=== PATIENT | female | born 1940 | race Caucasian/White ===

== ENCOUNTER 2016-04-05 11:04 | Outpatient (RCR) | payer MEDICARE ==
[2016-03-27 12:20] VITALS: BP 153/70
[2016-03-27] MEDS: IRON SUCROSE 200 MG/NS 100 ML (IVPB) IV SCH ×2 (12:25)
[2016-03-27 13:25] VITALS: BP 153/70
[2016-03-29] MEDS: IRON SUCROSE 200 MG/NS 100 ML (IVPB) IV SCH ×2 (13:50)
[2016-03-29 14:20] VITALS: BP 141/61
[2016-04-01] MEDS: IRON SUCROSE 200 MG/NS 100 ML (IVPB) IV SCH ×2 (12:44)
[2016-04-01 13:02] VITALS: BP 152/76
[2016-04-03] MEDS: IRON SUCROSE 200 MG/NS 100 ML (IVPB) IV SCH ×2 (13:26)
[2016-04-03 13:38] VITALS: BP 152/76
[~2016-04-05] VITALS: Ht 142.2 cm; Wt 67.1 kg
[~2016-04-05 11:04] MED LIST: ACETAMINOPHEN 500 MG TAB (TYLENOL) PO PRN; ASPI-86 PO; BACL10TA; CARV25TA PO; CEFU250T PO; CEPH-38 PO; CEPH500C PO; CITA40TA19 PO; CLPD75T PO; EZET10TA5 PO; FERR325T74 PO; FURO40TA4; HYDR1TAB PO; LEVO50TA63 PO; LISI1TAB6 PO; LORA10TA7 PO; METFOR850T PO; MGX400T PO; NF-ESOM40C; PIOG45TA PO; SIMV40TA4 PO; diphenhydrAMINE 50 MG/ML INJ (BENADRYL) IVP PRN
[2016-04-05] MEDS: IRON SUCROSE 200 MG/NS 100 ML (IVPB) IV SCH ×2 (11:31)
[2016-04-05 13:42] VITALS: BP 138/67
== END 2016-06-25 | disposition home or self-care (01) ==
LOC: SDC 11:04
PROVIDERS: ATTEND Nurse Practitioner
DX: D50.9 Iron deficiency anemia, unspecified (principal); D63.1 Anemia in chronic kidney disease; N18.3 Chronic kidney disease, stage 3 (moderate)
CPT/HCPCS: 96365

== ENCOUNTER → 2016-08-16 | Outpatient (CLI) | payer MEDICARE ==
[~2016-08-16] MED LIST changes: -ACETAMINOPHEN 500 MG TAB (TYLENOL) PO PRN; -diphenhydrAMINE 50 MG/ML INJ (BENADRYL) IVP PRN
[2016-08-16 10:18] LABS: MEAN PLATELET VOLUME 9.6 FL (7.4-10.4); RED BLOOD COUNT 4.05 10^6/uL (4.35-5.85); RED CELL DISTRIBUTION WIDTH 13.9 % (10.0-14.5); WHITE BLOOD COUNT 3.4 10^3/uL (4.3-11.0)
[2016-08-16 10:30] LABS: ALBUMIN 3.9 G/DL (3.2-4.5); CALCIUM 9.7 MG/DL (8.5-10.1); CREATININE SERUM 1.1 MG/DL (0.60-1.30); POTASSIUM 4.3 MMOL/L (3.6-5.0)
[2016-08-16 10:39] LABS: PROTEIN/CREATININE RATIO 0.55
[2016-08-16 10:48] LABS: PHOSPHORUS 3.6 MG/DL (2.3-4.7)
== END | disposition home or self-care (01) ==
LOC: LAB 09:49
PROVIDERS: ATTEND Nurse Practitioner
DX: E11.29 Type 2 diabetes mellitus with other diabetic kidney complication (principal); I13.10 Hypertensive heart and chronic kidney disease without heart failure, with stage 1 through stage 4 chronic kidney disease, or unspecified chronic kidney disease; I25.10 Atherosclerotic heart disease of native coronary artery without angina pectoris; D63.1 Anemia in chronic kidney disease; N18.4 Chronic kidney disease, stage 4 (severe); N25.81 Secondary hyperparathyroidism of renal origin; E55.9 Vitamin D deficiency, unspecified; E78.5 Hyperlipidemia, unspecified; D72.819 Decreased white blood cell count, unspecified; E87.5 Hyperkalemia; M48.02 Spinal stenosis, cervical region; E46 Unspecified protein-calorie malnutrition; R80.9 Proteinuria, unspecified; E03.9 Hypothyroidism, unspecified
CPT/HCPCS: 36415; 80061; 80069; 82306; 82570; 82728; 83540; 84156; 85027

== ENCOUNTER → 2017-03-31 | Outpatient (CLI) | payer MEDICARE ==
[2017-03-31 14:30] LABS: BILIRUBIN,URINE NEGATIVE (NEGATIVE); CLARITY,URINE CLEAR; COLOR,URINE YELLOW; GLUCOSE, URINE (UA) NEGATIVE (NEGATIVE); KETONES,URINE NEGATIVE (NEGATIVE); LEUKOCYTE ESTERASE ,URINE 3+ (NEGATIVE); NITRITE,URINE NEGATIVE (NEGATIVE); PH,URINE 5 (5-9); PROTEIN,URINE 1+ (NEGATIVE); UROBILINOGEN,URINE NORMAL (NORMAL)
[2017-03-31 14:33] LABS: HEMOGLOBIN 13.2 G/DL (11.5-16.0); MEAN PLATELET VOLUME 9.6 FL (7.4-10.4); RED BLOOD COUNT 4.31 10^6/uL (4.35-5.85); RED CELL DISTRIBUTION WIDTH 13.9 % (10.0-14.5); WHITE BLOOD COUNT 4.5 10^3/uL (4.3-11.0)
[2017-03-31 14:52] LABS: ALBUMIN 3.9 GM/DL (3.2-4.5); CALCIUM 9.6 MG/DL (8.5-10.1); CREATININE SERUM 1.18 MG/DL (0.60-1.30); PHOSPHORUS 3.2 MG/DL (2.3-4.7); POTASSIUM 4.1 MMOL/L (3.6-5.0)
[2017-03-31 15:08] LABS: BACTERIA,URINE TRACE /HPF; WBC,URINE 25-50 /HPF
== END ==
LOC: LAB 14:03
PROVIDERS: ATTEND Nurse Practitioner
DX: I13.10 Hypertensive heart and chronic kidney disease without heart failure, with stage 1 through stage 4 chronic kidney disease, or unspecified chronic kidney disease (principal); E11.22 Type 2 diabetes mellitus with diabetic chronic kidney disease; N18.4 Chronic kidney disease, stage 4 (severe); E87.5 Hyperkalemia; N25.81 Secondary hyperparathyroidism of renal origin; E55.9 Vitamin D deficiency, unspecified; E78.5 Hyperlipidemia, unspecified; D72.819 Decreased white blood cell count, unspecified; M48.02 Spinal stenosis, cervical region; E03.9 Hypothyroidism, unspecified; D63.1 Anemia in chronic kidney disease; E46 Unspecified protein-calorie malnutrition; I25.10 Atherosclerotic heart disease of native coronary artery without angina pectoris; R80.9 Proteinuria, unspecified
CPT/HCPCS: 36415; 80061; 80069; 81000; 82306; 82570; 82728; 83036; 83540; 83970; 84156; 85027; 87088

== ENCOUNTER → 2017-12-16 | Outpatient (CLI) | payer MEDICARE ==
[2017-12-16 15:05] LABS: HEMOGLOBIN 12.5 G/DL (11.5-16.0); MEAN PLATELET VOLUME 10.2 FL (7.4-10.4); RED BLOOD COUNT 4.15 10^6/uL (4.35-5.85); RED CELL DISTRIBUTION WIDTH 13.3 % (10.0-14.5)
[2017-12-16 15:15] LABS: BILIRUBIN,URINE NEGATIVE (NEGATIVE); CLARITY,URINE CLEAR; COLOR,URINE YELLOW; GLUCOSE, URINE (UA) NEGATIVE (NEGATIVE); KETONES,URINE NEGATIVE (NEGATIVE); LEUKOCYTE ESTERASE ,URINE 3+ (NEGATIVE); NITRITE,URINE NEGATIVE (NEGATIVE); PH,URINE 5 (5-9); PROTEIN,URINE 3+ (NEGATIVE); UROBILINOGEN,URINE NORMAL (NORMAL)
[2017-12-16 15:24] LABS: BACTERIA,URINE NEGATIVE /HPF; RENAL EPITHELIAL CELLS,URINE 0-2 /HPF; WBC,URINE 25-50 /HPF
[2017-12-16 15:35] LABS: ALBUMIN 4.1 GM/DL (3.2-4.5); CALCIUM 9.7 MG/DL (8.5-10.1); CREATININE SERUM 1.16 MG/DL (0.60-1.30); PHOSPHORUS 2.7 MG/DL (2.3-4.7); POTASSIUM 3.7 MMOL/L (3.6-5.0)
== END ==
LOC: LAB 14:37
PROVIDERS: ATTEND Nurse Practitioner
DX: E11.29 Type 2 diabetes mellitus with other diabetic kidney complication (principal); N18.4 Chronic kidney disease, stage 4 (severe); E87.5 Hyperkalemia; N25.81 Secondary hyperparathyroidism of renal origin; E55.9 Vitamin D deficiency, unspecified; E78.5 Hyperlipidemia, unspecified; D72.819 Decreased white blood cell count, unspecified; M48.02 Spinal stenosis, cervical region; E03.9 Hypothyroidism, unspecified; D63.1 Anemia in chronic kidney disease; E46 Unspecified protein-calorie malnutrition; I25.10 Atherosclerotic heart disease of native coronary artery without angina pectoris; I13.10 Hypertensive heart and chronic kidney disease without heart failure, with stage 1 through stage 4 chronic kidney disease, or unspecified chronic kidney disease; R80.9 Proteinuria, unspecified; R82.90 Unspecified abnormal findings in urine
CPT/HCPCS: 36415; 80069; 81000; 82306; 82570; 83036; 84156; 85027; 87088

== ENCOUNTER 2018-03-11 15:43 | Inpatient (IN) | payer MEDICARE ==
[~2018-03-11] VITALS: Ht 142.2 cm; Wt 61.0 kg
--- NOTE | 2018-03-11 17:00 | NUR ---
Pt admitted to room 231-1, with an admitting diagnosis of CVA, on 03/11/18 from [facility] via wheelchair van transportation, accompanied by limb driver. NADINE GARCIA introduced to surroundings, call light, bed controls, phone, TV, temperature control, lights, meal times, smoking policy, visitor policy, side rail policy, bathrooms and showers. Patient Rights given to patient in the handbook. NADINE GARCIA acknowledges understanding that [facility] is not responsible for the loss or damage to any personal effects or valuables that are kept in the patients posession during their hospitalization. The following Patient Care Plans were discussed with the pt: Discharge Planning, Self Care Deficit, Impaired Mobility, Potential for fall/injury, impaired memory. NADINE GARCIA acknowledges understanding of Interdisciplinary Patient Education. Patient and/or family were informed about the Rapid Response Team and its purpose. Patient received Patient Rights Booklet, which includes Privacy Act Statement and Data Collection Information Summary.
[2018-03-11 17:15] VITALS: BP 150/84
--- NOTE | 2018-03-11 18:00 | NUR ---
Upon asking pt who the President is ? Pt replies, "Camilo." Pt states her name & birthday correctly although slowly. Pt did not answer the question when asked where she lived ? 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 Have oriented pt to room, call lt button. Doesn't appear to comprehend. Speech is mostly clear, although slow to respond.
[2018-03-11] MEDS ORDERED: FAMO-144 PO (18:22)
--- OUTSIDE RECORDS SUMMARY | 2018-03-11 18:56 | XMS REPORT | Clinical Summary ---
Author Author [facility] Organization [facility] Address Unknown Phone Unavailable Care Team Providers Care Guard Lieutenant Name Role Phone No Pcp, Na PCP Unavailable Source Comments Some departments are not documenting in the electronic medical record. If you do not see the information that you expected, contact Release of Information in the Health Information Management department at [phone] for further assistance in locating additional records.[facility] Allergies No Known Allergies Medications End Date Status Medication Sig Dispensed Refills Start Date Active ezetimibe (ZETIA) 10 mg Take 10 mg by 0 tablet mouth every morning. Active atorvastatin (LIPITOR) 40 Take 1 tablet 0 mg tablet by mouth at bedtime daily. Active famotidine (PEPCID) 20 mg Take 20 mg by 0 tablet mouth twice daily. Active carvedilol (COREG) 25 mg Take 25 mg by 0 tablet mouth twice daily with meals. Take with food. Active lisinopril (PRINIVIL; Take 1 tablet 0 ZESTRIL) 5 mg tablet by mouth every morning. Active clopiDOGrel (PLAVIX) 75 Take 75 mg by 0 mg tablet mouth every morning. Active citalopram (CELEXA) 20 mg Take 20 mg by 0 tablet mouth every morning. 06/10/2018 Active aspirin 81 mg chewable Chew one 90 tablet 0 tablet tablet by 9 mouth daily for 90 days. Take with food. 03/10/2018 Discontinued aspirin EC 81 mg tablet Take 81 mg by 0 mouth daily. Take with food. 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 Hyperglycemia 03/09/2018 Renovascular hypertension 03/09/2018 Expressive aphasia 03/09/2018 Heart disease Encounters Care Team Description Date Type Specialty Moon Kuhn MD Arrived 03/09/2018 Hospital Cardiology Encounter John Carpio MD Husmann, Kathrin, MD Slavin, Sabreena J, MD Lechtenberg, Colleen G, MD Stroke (cerebrum) (HCC) 03/09/2018 Hospital - Encounter 03/11/2018 from Last 3 Months Social History Date Tobacco Use Types Packs/Day Years Used Never Assessed Sex Assigned at Date Recorded Not on file Industry Job Start Date Occupation Not on file Not on file Not on file Travel End Travel History Travel Start No recent travel history available. Last Filed Vital Signs Time Taken Vital Sign Reading 03/11/2018 2:00 PM [facility] Blood Pressure 127/80 03/11/2018 2:00 PM [facility] Pulse 70 03/11/2018 2:00 PM [facility] Temperature 36.9 C (98.4 F) - Respiratory Rate - 03/11/2018 2:00 PM [facility] Oxygen Saturation 97% - Inhaled Oxygen - Concentration 03/10/2018 4:00 AM [facility] Weight 58.7 kg (129 lb 6.6 oz) 03/09/2018 11:31 AM [facility] Height 147.3 cm (4' 10") 03/10/2018 4:00 AM [facility] Body Mass Index 27.05 Plan of Treatment Health Maintenance Due Date Last Done Comments PHYSICAL (COMPREHENSIVE) 01/17/1947 EXAM DTAP/TDAP VACCINES (1 - 1959 Tdap) SHINGLES RECOMBINANT 1991 VACCINE (1 of 2) OSTEOPOROSIS 2006 SCREENING/MONITORING PNEUMONIA (PCV13/PPSV23) 2006 VACCINES (1 of 2 - PCV13) INFLUENZA VACCINE 10/08/2017 Procedures Comments Procedure Name Priority Date/Time Associated Diagnosis MAGNESIUM Routine 03/11/2018 5:10 AM [facility] BASIC METABOLIC PANEL Routine 03/11/2018 5:10 AM [facility] CBC Routine 03/11/2018 5:10 AM [facility] PHOSPHORUS Routine 03/10/2018 4:10 AM [facility] MAGNESIUM Routine 03/10/2018 4:10 AM [facility] BASIC METABOLIC PANEL Routine 03/10/2018 4:10 AM [facility] CBC Routine 03/10/2018 4:[address] [facility] [address] HEAD WO CONTRAST Routine 03/10/2018 3:53 AM [facility] DEVICE EVALUATION - PPM STAT 03/09/2018 2:50 PM [facility] ABDOMEN AP ONLY Routine 03/09/2018 1:21 PM [facility] URINALYSIS MICROSCOPIC Routine 03/09/2018 REFLEX TO CULTURE 11:51 AM [facility] URINALYSIS DIPSTICK Routine 03/09/2018 REFLEX TO CULTURE 11:51 AM [facility] 2-D + DOPPLER Routine 03/09/2018 ECHOCARDIOGRAM 11:31 AM [facility] TROPONIN-I STAT 03/09/2018 10:40 AM [facility] CHEST SINGLE VIEW STAT 03/09/2018 8:29 AM [facility] BNP (B-TYPE NATRIURETIC Routine 03/09/2018 PEPTI) 8:06 AM [facility] TROPONIN-I STAT 03/09/2018 8:06 AM [facility] CONSULT IV THERAPY TEAM STAT 03/09/2018 7:38 AM [facility] PHOSPHORUS Routine 03/09/2018 7:00 AM [facility] MAGNESIUM Routine 03/09/2018 7:00 AM [facility] TROPONIN-I STAT 03/09/2018 7:00 AM [facility] BASIC METABOLIC PANEL Routine 03/09/2018 7:00 AM [facility] PTT (APTT) Routine 03/09/2018 7:00 AM [facility] PROTIME INR (PT) Routine 03/09/2018 7:00 AM [facility] CBC AND DIFF Routine 03/09/2018 7:00 AM [facility] HEMOGLOBIN A1C Routine 03/09/2018 7:00 AM [facility] LIPID PROFILE Routine 03/09/2018 7:00 AM [facility] CTA NECK WO/W STAT 03/09/2018 CONTRAST+POST P 6:50 AM [facility] CTA HEAD WO/W CONTR+POST STAT 03/09/2018 PRO 6:[address] [facility] [address] BRAIN PERF STAT 03/09/2018 6:50 AM [facility] ECG 12-LEAD STAT 03/09/2018 6:26 AM [facility] from Last 3 Months Results * CBC (03/11/2018 5:10 AM [facility]) Only the most recent of 2 results within the time period is included. White Blood Cells 6.5 4.5 - 11.0 K/UL [facility] RBC 4.72 4.0 - 5.0 M/UL [facility] Hemoglobin 14.0 12.0 - 15.0 GM/DL [facility] Hematocrit 42.1 36 - 45 % [facility] MCV 89.3 80 - 100 FL [facility] MCH 29.6 26 - 34 PG [facility] MCHC 33.2 32.0 - 36.0 G/DL [facility] RDW 14.5 11 - 15 % [facility] Platelet Count 146 (L) 150 - 400 K/UL [facility] MPV 9.3 7 - 11 FL [facility] Specimen Blood Performing Organization Address City/[facility] Phone Number [facility] [address] [phone] * MAGNESIUM (03/11/2018 5:10 AM [facility]) Only the most recent of 3 results within the time period is included. Magnesium 1.7 1.6 - 2.6 mg/dL [facility] Specimen Blood Performing Organization Address City/[facility] Phone Number [facility] [address] [place] [address] * BASIC METABOLIC PANEL (03/11/2018 5:10 AM [facility]) Only the most recent of 3 results within the time period is included. Sodium 135 (L) 137 - 147 MMOL/L [facility] Potassium 4.3 3.5 - 5.1 MMOL/L [facility] Chloride 102 98 - 110 MMOL/L [facility] CO2 25 21 - 30 MMOL/L [facility] Anion Gap 8 3 - 12 [facility] Glucose 133 (H) 70 - 100 MG/DL [facility] Blood Urea Nitrogen 18 7 - 25 MG/DL [facility] Creatinine 0.93 0.4 - 1.00 MG/DL [facility] Calcium 9.6 8.5 - 10.6 MG/DL [facility] eGFR Non 58 (L) >60 mL/min [facility] Comment: The eGFR is not validated for use in drug dosing adjustments.Continue to use estimated creatinine clearance per dosing reference text.Please contact the Clinical Pharmacist for questions. eGFR >60 >60 mL/min [facility] Comment: The eGFR is not validated for use in drug dosing adjustments.Continue to use estimated creatinine clearance per dosing reference text.Please contact the Clinical Pharmacist for questions. Specimen Blood Performing Organization Address City/[facility]/Zipcode Phone Number [facility] [address] [place] [address] * PHOSPHORUS (03/10/2018 4:10 AM [facility]) Only the most recent of 2 results within the time period is included. Phosphorus 4.0Comment: NOTE NEW REFERENCE 2.0 - 4.5 MG/DL [facility] RANGES Specimen Blood Performing Organization Address City/[facility]/Zipcode Phone Number [facility] [address] [place] [address] * CT HEAD WO CONTRAST (03/10/2018 3:53 AM [facility]) Impressions Performed At 1.Development of subtle vague intraparenchymal hemorrhage in the high [facility] RAD RESULTS posterior left frontal lobe in the region of previously demonstrated infarct compatible with hemorrhagic transformation. 2.Mildly increased localized mass effect from the above process without midline shift or herniation. 3.No new area of loss of pierson-white matter differentiation. By my electronic signature, I attest that I have personally reviewed the images for this examination and formulated the interpretations and opinions expressed in this report Finalized by Felix Frankel M.D. on 03/10/2018 4:20 AM. Dictated by Kaleb Osman D.O. on 03/10/2018 3:57 AM. Narrative Performed At EXAM: CT HEAD [facility] RESULTS CLINICAL INDICATION: Female, 78 years. stroke. TECHNIQUE: Multiple contiguous axial images were obtained of the brain without intravenous contrast. COMPARISON: CT examinations of the day prior FINDINGS: Development of subtle vague intraparenchymal hemorrhage in the high posterior left frontal lobe in the region of previously demonstrated infarct. There is mildly increased localized mass effect. No midline shift or herniation is demonstrated. The ventricles are stable in size and configuration. Basal cisterns remain patent. No new area of loss of pierson-white matter differentiation. Procedure Note Interface, Radiant Results - 03/10/2018 4:23 AM [facility] EXAM: CT HEAD CLINICAL INDICATION: Female, 78 years. stroke. TECHNIQUE: Multiple contiguous axial images were obtained of the brain without intravenous contrast. COMPARISON: CT examinations of the day prior FINDINGS: Development of subtle vague intraparenchymal hemorrhage in the high posterior left frontal lobe in the region of previously demonstrated infarct. There is mildly increased localized mass effect. No midline shift or herniation is demonstrated. The ventricles are stable in size and configuration. Basal cisterns remain patent. No new area of loss of pierson-white matter differentiation. IMPRESSION 1. Development of subtle vague intraparenchymal hemorrhage in the high posterior left frontal lobe in the region of previously demonstrated infarct compatible with hemorrhagic transformation. 2. Mildly increased localized mass effect from the above process without midline shift or herniation. 3. No new area of loss of pierson-white matter differentiation. By my electronic signature, I attest that I have personally reviewed the images for this examination and formulated the interpretations and opinions expressed in this report Finalized by Felix Frankel M.D. on 03/10/2018 4:20 AM. Dictated by Kaleb Osman D.O. on 03/10/2018 3:57 AM. Performing Organization Address City/State/Zipcode Phone Number [facility] RESULTS * DEVICE EVALUATION - PPM (03/09/2018 2:50 PM [facility]) Generator [employer] OTHER OUTSIDE LAB Generator Model # Accent DR RF 2210 OTHER OUTSIDE LAB Generator Serial # [id number] OTHER OUTSIDE LAB Generator Implnat Date 03/01/13 OTHER OUTSIDE LAB Device Mode DDDR OTHER OUTSIDE LAB Lower Rate Limit 65 OTHER OUTSIDE LAB Atrial Lead [employer] [facility] OTHER OUTSIDE LAB Atrial Lead Model # Tendril STS 2088TC - 46cm OTHER OUTSIDE LAB Atrial Lead Serial # [id number] OTHER OUTSIDE LAB Atrial Lead Implant Date 03/01/13 OTHER OUTSIDE LAB RV Lead [employer] [facility] OTHER OUTSIDE LAB RV Lead Model # Tendril STS 2088TC - 52cm OTHER OUTSIDE LAB RV Lead Serial # [id number] OTHER OUTSIDE LAB RV Lead Implant Date 03/01/13 OTHER OUTSIDE LAB Initial Rhythm -VS OTHER OUTSIDE LAB Underlying Rhythm SR 80's OTHER OUTSIDE LAB Upper Rate Limit 125 OTHER OUTSIDE LAB Pace AV Delay 250 OTHER OUTSIDE LAB Sense AV Delay 225 OTHER OUTSIDE LAB -VS% 34 OTHER OUTSIDE LAB -ROAD GRADER% <1 OTHER OUTSIDE LAB -VS% 65 OTHER OUTSIDE LAB AP-ROAD GRADER% <1 OTHER OUTSIDE LAB # Mode S. Events 0 OTHER OUTSIDE LAB # High AT/AF Evts 14 OTHER OUTSIDE LAB Time in AT/AF - OTHER OUTSIDE LAB V Rate in AT/AF - OTHER OUTSIDE LAB Single PVSc 1.5% OTHER OUTSIDE LAB PVC runs - OTHER OUTSIDE LAB Battery Voltage 2.92V OTHER OUTSIDE LAB A Sense mv 4.1 OTHER OUTSIDE LAB A Capture V 0.5 OTHER OUTSIDE LAB A Capture ms 0.6 OTHER OUTSIDE LAB A Lead ohms 410 OTHER OUTSIDE LAB RV Sense mv >12.0 OTHER OUTSIDE LAB RV Capture V 1.0 OTHER OUTSIDE LAB RV Capture ms 0.4 OTHER OUTSIDE LAB RV Lead ohms 400 OTHER OUTSIDE LAB LV Sense mv - OTHER OUTSIDE LAB EP LV Capture V - OTHER OUTSIDE LAB LV Capture ms - OTHER OUTSIDE LAB LV Lead ohms - OTHER OUTSIDE LAB Counters Clrd Yes OTHER OUTSIDE LAB Saved to Disc No OTHER OUTSIDE LAB Device Function WNL Yes OTHER OUTSIDE LAB Device Reprogram No OTHER OUTSIDE LAB V-V Timing - OTHER OUTSIDE LAB Ao Voltage 1.375A OTHER OUTSIDE LAB AO Pulse Width 0.6 OTHER OUTSIDE LAB RV Voltage 1.25A OTHER OUTSIDE LAB RV Pulse Width 0.4 OTHER OUTSIDE LAB LV Voltage - OTHER OUTSIDE LAB LV Pulse Width - OTHER OUTSIDE LAB # High V Events 85 OTHER OUTSIDE LAB Magent Rate 98.7 OTHER OUTSIDE LAB Estimated Longevity 7-7.8 years OTHER OUTSIDE LAB Initial Rhythm 80's OTHER OUTSIDE LAB Device Implanted By Dr. Constantino OTHER OUTSIDE LAB Pacemaker Dependant No OTHER OUTSIDE LAB Programming? Yes OTHER OUTSIDE LAB Date of Last Programming 03/09/18 OTHER OUTSIDE LAB Interrogation? No OTHER OUTSIDE LAB EP Device Followed By Other OTHER OUTSIDE LAB Narrative Performed At OTHER OUTSIDE LAB [facility] Inpatient Check [03/09/2018 2:51:08 PM - MAGALI MOSCOSO] Inpatient programming for dual chamber [facility] PPM. Device function: Appropriate. Presenting EGM shows ASVS 85 bpm. Events noted since 03/14/16: Atrial:85 AMS event, events showed falling in refractory, no EGM's showed start of event, MS put pt back into NR, longest duration 12 seconds. Ventricular:14 VHR events, all EGM's show VS 150-180 bpm, all rates very regular, EGM's almost look like FFRWOS in the A lead, no onset/term seen. RV Pacing%: <1 Programming changes: None Pt is followed by outside provider Routed to Dr. Lew for review/cosign. Device is NOT MRI compatible. Ordering team notified. Performing Organization Address City/State/Zipcode Phone Number OTHER OUTSIDE LAB * ABDOMEN AP ONLY (03/09/2018 1:21 PM [facility]) Impressions Performed At No indwelling metal objects identified. [facility] RESULTS Approved by Silver Lafleur M.D. on 03/09/2018 2:50 PM By my electronic signature, I attest that I have personally reviewed the images for this examination and formulated the interpretations and opinions expressed in this report Finalized by Sagar Manuel D.O. on 03/09/2018 4:31 PM. Dictated by Silver Lafleur M.D. on 03/09/2018 1:29 PM. Narrative Performed At ABDOMEN AP ONLY [facility] RAD RESULTS Clinical Indication: Female, 78 years old. MRI screening, right sided weakness , aphasia Comparison: None Findings: The bowel gas pattern is nonobstructive. Mild thoracolumbar spondylosis. Partial visualization of prior median sternotomy and CABG. The visualized lung bases are clear aside from a small right calcified granuloma. Mild to moderate bilateral hip arthrosis. No indwelling metal objects are identified. Procedure Note Interface, Radiant Results - 03/09/2018 4:34 PM [facility] ABDOMEN AP ONLY Clinical Indication: Female, 78 years old. MRI screening, right sided weakness, aphasia Comparison: None Findings: The bowel gas pattern is nonobstructive. Mild thoracolumbar spondylosis. Partial visualization of prior median sternotomy and CABG. The visualized lung bases are clear aside from a small right calcified granuloma. Mild to moderate bilateral hip arthrosis. No indwelling metal objects are identified. IMPRESSION No indwelling metal objects identified. Approved by Silver Lafleur M.D. on 03/09/2018 2:50 PM By my electronic signature, I attest that I have personally reviewed the images for this examination and formulated the interpretations and opinions expressed in this report Finalized by Sagar Manuel D.O. on 03/09/2018 4:31 PM. Dictated by Silver Lafleur M.D. on 03/09/2018 1:29 PM. Performing Organization Address [facility]/[facility] Phone Number RAD RESULTS * URINALYSIS MICROSCOPIC REFLEX TO CULTURE (03/09/2018 11:51 AM [facility]) WBCs,UA 0-2 0 - 2 /HPF [facility] RBCs,UA 0-2 0 - 3 /HPF [facility] Comment,UA Urine submitted for reflex [facility] culture if criteria are met:WBC>10, positive nitrite and/or >=1+ leukocyte esterase. If quantity is not sufficient, an addendum will follow. Squamous Epithelial Cells 0-2 0 - 5 [facility] Specimen Urine Performing Organization Address [facility] Phone Number MAIN LAB [address] [place] [address] * URINALYSIS DIPSTICK REFLEX TO CULTURE (03/09/2018 11:51 AM [facility]) Color,UA STRAW [facility] Turbidity,UA CLEAR CLEAR-CLEAR [facility] Specific [place]-Urine 1.020 1.003 - 1.035 [facility] pH,UA 5.0 5.0 - 8.0 [facility] Protein,UA NEG NEG-NEG [facility] Glucose,UA NEG NEG-NEG [facility] Ketones,UA NEG NEG-NEG [facility] Bilirubin,UA NEG NEG-NEG [facility] Blood,UA NEG NEG-NEG [facility] Urobilinogen,UA NORMAL NORM-NORMAL [facility] Nitrite,UA NEG NEG-NEG [facility] Leukocytes,UA NEG NEG-NEG [facility] Urine Ascorbic Acid, UA NEG NEG-NEG [facility] Specimen Urine Performing Organization Address [facility] Phone Number MAIN LAB [address] [place] [address] * 2-D + DOPPLER ECHOCARDIOGRAM (03/09/2018 11:31 AM [facility]) IVS 0.96 0.6 - 0.9 cm OTHER OUTSIDE LAB LVIDD 5.60 3.8 - 5.2 cm OTHER OUTSIDE LAB LVIDS 4.68 2.2 - 3.5 cm OTHER OUTSIDE LAB PW 0.86 0.6 - 0.9 cm OTHER OUTSIDE LAB TDI e' 0.06 m/s OTHER OUTSIDE LAB Right Ventricular Mid 2.31 1.9 - 3.5 cm OTHER OUTSIDE LAB Diameter LA size 4.21 2.7 - 3.8 cm OTHER OUTSIDE LAB LA volume 76.90 22 - 52 mL OTHER OUTSIDE LAB Right Atrial Area 13.33 <18 cm2 OTHER OUTSIDE LAB Right Atrial Major 4.80 2.2 - 2.8 cm OTHER OUTSIDE LAB Dimension AV peak velocity 0.96 m/s OTHER OUTSIDE LAB Mr max kemal 5.58 m/s OTHER OUTSIDE LAB MV Peak A Kemal 1.15 m/s OTHER OUTSIDE LAB MV Peak E Kemal PW 0.87 m/s OTHER OUTSIDE LAB Right Ventricular Basal 3.37 2.5 - 4.1 cm OTHER OUTSIDE LAB Diameter Right Heart Systolic 1.36 >1.7 cm OTHER OUTSIDE LAB Mmode TAPSE Sinus 3.04 2.7 - 3.3 cm OTHER OUTSIDE LAB BSA 1.51 m2 OTHER OUTSIDE LAB CV ECHO PV MOLYBDENUM STEAMER OPERATOR ANGEL Callahan OTHER OUTSIDE LAB FS 16.43 28 - 44 % OTHER OUTSIDE LAB EF 27.93 % OTHER OUTSIDE LAB LV mass 194.37 66 - 150 g OTHER OUTSIDE LAB RWT 0.31 <=0.42 OTHER OUTSIDE LAB E/A ratio 0.76 OTHER OUTSIDE LAB E/E' ratio 14.50 OTHER OUTSIDE LAB Left Atrium Index 50.93 16 - 34 OTHER OUTSIDE LAB Cardiology Ultrasound Siemens [id number] OTHER OUTSIDE LAB Machine Left Ventricle Mass Index 128.73 44 - 88 g/m2 OTHER OUTSIDE LAB MV vena contracta 0.26 cm OTHER OUTSIDE LAB Vn Nyquist 0.34 m/s OTHER OUTSIDE LAB Radius 0.4 cm OTHER OUTSIDE LAB MR EMMY CARLOS 0.06 cm2 OTHER OUTSIDE LAB TV rest pulmonary artery 47 mmHg OTHER OUTSIDE LAB pressure Right Heart Systolic TDI 0.097 m/s OTHER OUTSIDE LAB S' ECHO EF 35 % OTHER OUTSIDE LAB Narrative Performed At OTHER OUTSIDE LAB The LV is mildly dilated.The estimated LV ejection fraction is 35%.No LV mural thrombus appears to be present. Left atrium is moderately enlarged. Mild mitral regurgitation is present. Mild tricuspid regurgitation is noted.The estimated PA systolic pressures 45-50 mmHg. There was no evidence of intracardiac right to left shunting on the bubble study. There are no old studies available for comparison. Performing Organization Address City/State/Zipcode Phone Number OTHER OUTSIDE LAB * TROPONIN-I (03/09/2018 10:40 AM [facility]) Only the most recent of 3 results within the time period is included. Troponin-I 0.78 (H) 0.0 - 0.05 NG/ML [facility] Specimen Blood Performing Organization Address City/State/Zipcode Phone Number [facility] [address] [place] [address] * CHEST SINGLE VIEW (03/09/2018 8:29 AM [facility]) Impressions Performed At Mild cardiomegaly with no other acute cardiopulmonary abnormality. [facility] RESULTS Approved by Elian Mendoza M.D. on 03/09/2018 9:55 AM By my electronic signature, I attest that I have personally reviewed the images for this examination and formulated the interpretations and opinions expressed in this report Finalized by Devyn Salguero M.D. on 03/09/2018 11:18 AM. Dictated by Elian Mendoza M.D. on 03/09/2018 8:56 AM. Narrative Performed At CHEST SINGLE VIEW [facility] RAD RESULTS Clinical history: Post TPA Comparison: None available. Findings: Prior median sternotomy and coronary bypass stent placement. A left subclavian cardiac conduction device is in place with a lead overlying the right atrium and another overlying the right ventricle. The heart is mildly enlarged. Pulmonary vasculature is within normal limits. No pleural effusion, focal consolidation , or pneumothorax is identified. Calcified right lower lung granuloma. Mild atelectasis or scarring right lung. Procedure Note Interface, Radiant Results - 03/09/2018 11:21 AM [facility] CHEST SINGLE VIEW Clinical history: Post TPA Comparison: None available. Findings: Prior median sternotomy and coronary bypass stent placement. A left subclavian cardiac conduction device is in place with a lead overlying the right atrium and another overlying the right ventricle. The heart is mildly enlarged. Pulmonary vasculature is within normal limits. No pleural effusion, focal consolidation, or pneumothorax is identified. Calcified right lower lung granuloma. Mild atelectasis or scarring right lung. IMPRESSION Mild cardiomegaly with no other acute cardiopulmonary abnormality. Approved by Elian Mendoza M.D. on 03/09/2018 9:55 AM By my electronic signature, I attest that I have personally reviewed the images for this examination and formulated the interpretations and opinions expressed in this report Finalized by Devyn Salguero M.D. on 03/09/2018 11:18 AM. Dictated by Elian Mendoza M.D. on 03/09/2018 8:56 AM. Performing Organization Address [facility] Phone Number RAD RESULTS * BNP (B-TYPE NATRIURETIC PEPTI) (03/09/2018 8:06 AM [facility]) B Type Natriuretic 334.0 (H) 0 - 100 PG/ML [facility] Peptide Specimen Blood Performing Organization Address [facility] Phone Number MAIN LAB [address] [place] [address] * PTT (APTT) (03/09/2018 7:00 AM [facility]) APTT 25.0Comment: NOTE NEW 24.0 - 36.5 SEC [facility] REFERENCE RANGES Specimen Blood Performing Organization Address [facility] Phone Number MAIN LAB [address] [place] [address] * PROTIME INR (PT) (03/09/2018 7:00 AM [facility]) INR 1.0 0.8 - 1.2 MAIN LAB Specimen Blood Performing Organization Address [facility] Phone Number MAIN LAB [address] [place] [address] * CBC AND DIFF (03/09/2018 7:00 AM [facility]) White Blood Cells 6.6 4.5 - 11.0 K/UL [facility] RBC 4.46 4.0 - 5.0 M/UL [facility] Hemoglobin 13.2 12.0 - 15.0 GM/DL [facility] Hematocrit 39.7 36 - 45 % [facility] MCV 88.9 80 - 100 FL [facility] MCH 29.5 26 - 34 PG [facility] MCHC 33.2 32.0 - 36.0 G/DL [facility] RDW 13.8 11 - 15 % [facility] Platelet Count 157 150 - 400 K/UL [facility] MPV 9.3 7 - 11 FL [facility] Neutrophils 76 41 - 77 % [facility] Lymphocytes 17 (L) 24 - 44 % [facility] Monocytes 7 4 - 12 % [facility] Eosinophils 0 0 - 5 % [facility] Basophils 0 0 - 2 % [facility] Absolute Neutrophil Count 5.00 1.8 - 7.0 K/UL [facility] Absolute Lymph Count 1.10 1.0 - 4.8 K/UL [facility] Absolute Monocyte Count 0.40 0 - 0.80 K/UL [facility] Absolute Eosinophil Count 0.00 0 - 0.45 K/UL [facility] Absolute Basophil Count 0.00 0 - 0.20 K/UL [facility] Specimen Blood Performing Organization Address [facility] Phone Number MAIN LAB [address] [place] [address] * HEMOGLOBIN A1C (03/09/2018 7:00 AM [facility]) Hemoglobin A1C 6.4 (H) 4.0 - 6.0 % [facility] Comment: The ADA recommends that most patients with type 1 and type 2 diabetes maintain an A1c level <7%. Specimen Blood Performing Organization Address [facility] [place] Phone Number MA[facility] LAB [address] [place] [address] * LIPID PROFILE (03/09/2018 7:00 AM [facility]) Cholesterol 217 (H) <200 MG/DL [facility] Triglycerides 138 <150 MG/DL [facility] HDL 37 (L) >40 MG/DL [facility] LDL 165 (H) <100 MG/DL [facility] VLDL 28 MG/DL [facility] Non HDL Cholesterol 180 MG/DL [facility] Comment: Calculated non-HDL Cholesterol (non-HDL-C) indirectly measures LDL-C, Lp(a), IDL-C, and VLDL-C.It is a surrogate marker for Apoprotein B.Goal should be less than 130 mg/dL. Specimen Blood Performing Organization Address [facility] Phone Number MAIN LAB [address] [place] [address] * CT BRAIN PERF (03/09/2018 6:50 AM [facility]) Impressions Performed At CTA head: [facility] RESULTS 1.Acute left MCA distribution infarct in the high posterior left frontal lobe with occlusion of a distal posterior left M4 branch leading to the area of infarct. 2.Mild bilateral distal internal carotid artery atherosclerotic plaque resulting in only mild luminal stenosis. 3.Mild atrophy and white matter disease, most consistent with chronic small vessel ischemic change in a patient this age. CTA neck: 1.Moderate right proximal internal carotid atherosclerotic plaque with approximately 40-50% luminal narrowing. 2.Mild left proximal internal carotid and left common carotid artery atherosclerotic plaque without significant luminal narrowing. 3.Significant tortuosity of the nondominant proximal left vertebral artery with at least mild luminal narrowing at its origin due to atherosclerotic plaque. CT perfusion: Findings consistent with completed left MCA distribution infarct. No mismatch perfusion defect. Case discussed with Dr. Whiteside by Dr. Jack (after consultation with Dr. Lyons) at 7:17 AM on 03/09/2018. By my electronic signature, I attest that I have personally reviewed the images for this examination and formulated the interpretations and opinions expressed in this report Finalized by Surinder Lyons M.D. on 03/09/2018 7:25 AM. Dictated by Jojo Jack D.O. on 03/09/2018 6:32 AM. Narrative Performed At EXAM: CTA HEAD AND NECK, CTA BRAIN PERFUSION [facility] RESULTS HISTORY: 78-year-old female. Right upper extremity weakness. Right-sided neglect. TECHNIQUE: Multiple contiguous axial images were obtained of the brain and neck following the administration of Omnipaque 350IV contrast. CTA maximum density projection images were obtained of the brain and neck with image post processing.Perfusion imaging was also obtained with CBV, MTT, TTD, and CBF mapping. COMPARISON: No prior studies are available for comparison. FINDINGS: CTA head: There is mild generalized cerebral volume loss with concordant prominence of the ventricles and subarachnoid spaces. There is low-attenuation and loss of pierson-white matter differentiation along the high posterior left frontal lobe along the primary motor and premotor cortices consistent with MCA territory infarct. This area measures approximately 2.6 cm AP x 2 cm transverse and is most consistent with an acute infarct. No additional pierson-white matter loss is identified. There is no midline shift or herniation. There is no evidence of acute intracranial hemorrhage. The basal cisterns are patent. The calvarium is intact. There is occlusion of a distal posterior left M4 branch leading to the area of infarct. There is mild calcific atherosclerotic plaque involving the bilateral distal internal carotid arteries resulting in areas of mild narrowing. There is dominance of the right vertebral artery. The left vertebral artery is smaller in caliber diffusely above the left PICA origin, most consistent with normal variant. The anterior, middle, and posterior cerebral arteries are otherwise patent without focal narrowing. No aneurysm or arteriovenous malformation is identified. CTA neck: The aortic arch vessel origins are widely patent. There is focal calcific plaque at the origin of the right vertebral artery without significant luminal narrowing. There is tortuosity of the nondominant proximal left vertebral artery with focal plaque and at least mild luminal narrowing of its origin. The left vertebral artery arises from the aortic arch. There is calcific atherosclerotic plaque within the proximal right internal carotid artery with approximately 40-50% luminal narrowing according to NASCET criteria. There is mild atherosclerotic plaque within the proximal left internal carotid artery and left common carotid artery without significant luminal narrowing. No aneurysm, AVM , or dissection is identified. There is multilevel cervical spondylosis with posterior disc osteophyte complexes and uncovertebral hypertrophy resulting in levels of marked neural foraminal narrowing and at least moderate spinal canal narrowing. The paranasal sinus and mastoid air cells are clear. The lung apices are clear other than some probable areas of mild atelectasis or small airways disease accounting for mild mosaic attenuation appearance. CT Perfusion: There is increased time to drain and mean transit time in the area of left MCA infarct at the posterior left frontal lobe, with associated decrease blood flow and volume loss, consistent with a completed infarct. No mismatch perfusion defect is identified. Procedure Note Interface, Radiant Results - 03/09/2018 7:28 AM [facility] EXAM: CTA HEAD AND NECK, CTA BRAIN PERFUSION HISTORY: 78-year-old female. Right upper extremity weakness. Right-sided neglect. TECHNIQUE: Multiple contiguous axial images were obtained of the brain and neck following the administration of Omnipaque 350 IV contrast. CTA maximum density projection images were obtained of the brain and neck with image post processing. Perfusion imaging was also obtained with CBV, MTT, TTD, and CBF mapping. COMPARISON: No prior studies are available for comparison. FINDINGS: CTA head: There is mild generalized cerebral volume loss with concordant prominence of the ventricles and subarachnoid spaces. There is low-attenuation and loss of pierson-white matter differentiation along the high posterior left frontal lobe along the primary motor and premotor cortices consistent with MCA territory infarct. This area measures approximately 2.6 cm AP x 2 cm transverse and is most consistent with an acute infarct. No additional pierson-white matter loss is identified. There is no midline shift or herniation. There is no evidence of acute intracranial hemorrhage. The basal cisterns are patent. The calvarium is intact. There is occlusion of a distal posterior left M4 branch leading to the area of infarct. There is mild calcific atherosclerotic plaque involving the bilateral distal internal carotid arteries resulting in areas of mild narrowing. There is dominance of the right vertebral artery. The left vertebral artery is smaller in caliber diffusely above the left PICA origin, most consistent with normal variant. The anterior, middle, and posterior cerebral arteries are otherwise patent without focal narrowing. No aneurysm or arteriovenous malformation is identified. CTA neck: The aortic arch vessel origins are widely patent. There is focal calcific plaque at the origin of the right vertebral artery without significant luminal narrowing. There is tortuosity of the nondominant proximal left vertebral artery with focal plaque and at least mild luminal narrowing of its origin. The left vertebral artery arises from the aortic arch. There is calcific atherosclerotic plaque within the proximal right internal carotid artery with approximately 40-50% luminal narrowing according to NASCET criteria. There is mild atherosclerotic plaque within the proximal left internal carotid artery and left common carotid artery without significant luminal narrowing. No aneurysm, AVM, or dissection is identified. There is multilevel cervical spondylosis with posterior disc osteophyte complexes and uncovertebral hypertrophy resulting in levels of marked neural foraminal narrowing and at least moderate spinal canal narrowing. The paranasal sinus and mastoid air cells are clear. The lung apices are clear other than some probable areas of mild atelectasis or small airways disease accounting for mild mosaic attenuation appearance. CT Perfusion: There is increased time to drain and mean transit time in the area of left MCA infarct at the posterior left frontal lobe, with associated decrease blood flow and volume loss, consistent with a completed infarct. No mismatch perfusion defect is identified. IMPRESSION CTA head: 1. Acute left MCA distribution infarct in the high posterior left frontal lobe with occlusion of a distal posterior left M4 branch leading to the area of infarct. 2. Mild bilateral distal internal carotid artery atherosclerotic plaque resulting in only mild luminal stenosis. 3. Mild atrophy and white matter disease, most consistent with chronic small vessel ischemic change in a patient this age. CTA neck: 1. Moderate right proximal internal carotid atherosclerotic plaque with approximately 40-50% luminal narrowing. 2. Mild left proximal internal carotid and left common carotid artery atherosclerotic plaque without significant luminal narrowing. 3. Significant tortuosity of the nondominant proximal left vertebral artery with at least mild luminal narrowing at its origin due to atherosclerotic plaque. CT perfusion: Findings consistent with completed left MCA distribution infarct. No mismatch perfusion defect. Case discussed with Dr. Whiteside by Dr. Jack (after consultation with Dr. Lyons) at 7:17 AM on 03/09/2018. By my electronic signature, I attest that I have personally reviewed the images for this examination and formulated the interpretations and opinions expressed in this report Finalized by Surinder Lyons M.D. on 03/09/2018 7:25 AM. Dictated by Jojo Jack D.O. on 03/09/2018 6:32 AM. Performing Organization Address City/State/Zipcode Phone Number [facility] RESULTS * CTA NECK WO/W CONTRAST+POST P (03/09/2018 6:50 AM [facility]) Impressions Performed At CTA head: [facility] RESULTS 1.Acute left MCA distribution infarct in the high posterior left frontal lobe with occlusion of a distal posterior left M4 branch leading to the area of infarct. 2.Mild bilateral distal internal carotid artery atherosclerotic plaque resulting in only mild luminal stenosis. 3.Mild atrophy and white matter disease, most consistent with chronic small vessel ischemic change in a patient this age. CTA neck: 1.Moderate right proximal internal carotid atherosclerotic plaque with approximately 40-50% luminal narrowing. 2.Mild left proximal internal carotid and left common carotid artery atherosclerotic plaque without significant luminal narrowing. 3.Significant tortuosity of the nondominant proximal left vertebral artery with at least mild luminal narrowing at its origin due to atherosclerotic plaque. CT perfusion: Findings consistent with completed left MCA distribution infarct. No mismatch perfusion defect. Case discussed with Dr. Whiteside by Dr. Jack (after consultation with Dr. Lyons) at 7:17 AM on 03/09/2018. By my electronic signature, I attest that I have personally reviewed the images for this examination and formulated the interpretations and opinions expressed in this report Finalized by Surinder Lyons M.D. on 03/09/2018 7:25 AM. Dictated by Jojo Jack D.O. on 03/09/2018 6:32 AM. Narrative Performed At EXAM: CTA HEAD AND NECK, CTA BRAIN PERFUSION [facility] RESULTS HISTORY: 78-year-old female. Right upper extremity weakness. Right-sided neglect. TECHNIQUE: Multiple contiguous axial images were obtained of the brain and neck following the administration of Omnipaque 350IV contrast. CTA maximum density projection images were obtained of the brain and neck with image post processing.Perfusion imaging was also obtained with CBV, MTT, TTD, and CBF mapping. COMPARISON: No prior studies are available for comparison. FINDINGS: CTA head: There is mild generalized cerebral volume loss with concordant prominence of the ventricles and subarachnoid spaces. There is low-attenuation and loss of pierson-white matter differentiation along the high posterior left frontal lobe along the primary motor and premotor cortices consistent with MCA territory infarct. This area measures approximately 2.6 cm AP x 2 cm transverse and is most consistent with an acute infarct. No additional pierson-white matter loss is identified. There is no midline shift or herniation. There is no evidence of acute intracranial hemorrhage. The basal cisterns are patent. The calvarium is intact. There is occlusion of a distal posterior left M4 branch leading to the area of infarct. There is mild calcific atherosclerotic plaque involving the bilateral distal internal carotid arteries resulting in areas of mild narrowing. There is dominance of the right vertebral artery. The left vertebral artery is smaller in caliber diffusely above the left PICA origin, most consistent with normal variant. The anterior, middle, and posterior cerebral arteries are otherwise patent without focal narrowing. No aneurysm or arteriovenous malformation is identified. CTA neck: The aortic arch vessel origins are widely patent. There is focal calcific plaque at the origin of the right vertebral artery without significant luminal narrowing. There is tortuosity of the nondominant proximal left vertebral artery with focal plaque and at least mild luminal narrowing of its origin. The left vertebral artery arises from the aortic arch. There is calcific atherosclerotic plaque within the proximal right internal carotid artery with approximately 40-50% luminal narrowing according to NASCET criteria. There is mild atherosclerotic plaque within the proximal left internal carotid artery and left common carotid artery without significant luminal narrowing. No aneurysm, AVM , or dissection is identified. There is multilevel cervical spondylosis with posterior disc osteophyte complexes and uncovertebral hypertrophy resulting in levels of marked neural foraminal narrowing and at least moderate spinal canal narrowing. The paranasal sinus and mastoid air cells are clear. The lung apices are clear other than some probable areas of mild atelectasis or small airways disease accounting for mild mosaic attenuation appearance. CT Perfusion: There is increased time to drain and mean transit time in the area of left MCA infarct at the posterior left frontal lobe, with associated decrease blood flow and volume loss, consistent with a completed infarct. No mismatch perfusion defect is identified. Procedure Note Interface, Radiant Results - 03/09/2018 7:28 AM [facility] EXAM: CTA HEAD AND NECK, CTA BRAIN PERFUSION HISTORY: 78-year-old female. Right upper extremity weakness. Right-sided neglect. TECHNIQUE: Multiple contiguous axial images were obtained of the brain and neck following the administration of Omnipaque 350 IV contrast. CTA maximum density projection images were obtained of the brain and neck with image post processing. Perfusion imaging was also obtained with CBV, MTT, TTD, and CBF mapping. COMPARISON: No prior studies are available for comparison. FINDINGS: CTA head: There is mild generalized cerebral volume loss with concordant prominence of the ventricles and subarachnoid spaces. There is low-attenuation and loss of pierson-white matter differentiation along the high posterior left frontal lobe along the primary motor and premotor cortices consistent with MCA territory infarct. This area measures approximately 2.6 cm AP x 2 cm transverse and is most consistent with an acute infarct. No additional pierson-white matter loss is identified. There is no midline shift or herniation. There is no evidence of acute intracranial hemorrhage. The basal cisterns are patent. The calvarium is intact. There is occlusion of a distal posterior left M4 branch leading to the area of infarct. There is mild calcific atherosclerotic plaque involving the bilateral distal internal carotid arteries resulting in areas of mild narrowing. There is dominance of the right vertebral artery. The left vertebral artery is smaller in caliber diffusely above the left PICA origin, most consistent with normal variant. The anterior, middle, and posterior cerebral arteries are otherwise patent without focal narrowing. No aneurysm or arteriovenous malformation is identified. CTA neck: The aortic arch vessel origins are widely patent. There is focal calcific plaque at the origin of the right vertebral artery without significant luminal narrowing. There is tortuosity of the nondominant proximal left vertebral artery with focal plaque and at least mild luminal narrowing of its origin. The left vertebral artery arises from the aortic arch. There is calcific atherosclerotic plaque within the proximal right internal carotid artery with approximately 40-50% luminal narrowing according to NASCET criteria. There is mild atherosclerotic plaque within the proximal left internal carotid artery and left common carotid artery without significant luminal narrowing. No aneurysm, AVM, or dissection is identified. There is multilevel cervical spondylosis with posterior disc osteophyte complexes and uncovertebral hypertrophy resulting in levels of marked neural foraminal narrowing and at least moderate spinal canal narrowing. The paranasal sinus and mastoid air cells are clear. The lung apices are clear other than some probable areas of mild atelectasis or small airways disease accounting for mild mosaic attenuation appearance. CT Perfusion: There is increased time to drain and mean transit time in the area of left MCA infarct at the posterior left frontal lobe, with associated decrease blood flow and volume loss, consistent with a completed infarct. No mismatch perfusion defect is identified. IMPRESSION CTA head: 1. Acute left MCA distribution infarct in the high posterior left frontal lobe with occlusion of a distal posterior left M4 branch leading to the area of infarct. 2. Mild bilateral distal internal carotid artery atherosclerotic plaque resulting in only mild luminal stenosis. 3. Mild atrophy and white matter disease, most consistent with chronic small vessel ischemic change in a patient this age. CTA neck: 1. Moderate right proximal internal carotid atherosclerotic plaque with approximately 40-50% luminal narrowing. 2. Mild left proximal internal carotid and left common carotid artery atherosclerotic plaque without significant luminal narrowing. 3. Significant tortuosity of the nondominant proximal left vertebral artery with at least mild luminal narrowing at its origin due to atherosclerotic plaque. CT perfusion: Findings consistent with completed left MCA distribution infarct. No mismatch perfusion defect. Case discussed with Dr. Whiteside by Dr. Jack (after consultation with Dr. Lyons) at 7:17 AM on 03/09/2018. By my electronic signature, I attest that I have personally reviewed the images for this examination and formulated the interpretations and opinions expressed in this report Finalized by Surinder Lyons M.D. on 03/09/2018 7:25 AM. Dictated by Jojo Jack D.O. on 03/09/2018 6:32 AM. Performing Organization Address City/State/Zipcode Phone Number [facility] RESULTS * CTA HEAD WO/W CONTR+POST PRO (03/09/2018 6:50 AM [facility]) Impressions Performed At CTA head: [facility] RESULTS 1.Acute left MCA distribution infarct in the high posterior left frontal lobe with occlusion of a distal posterior left M4 branch leading to the area of infarct. 2.Mild bilateral distal internal carotid artery atherosclerotic plaque resulting in only mild luminal stenosis. 3.Mild atrophy and white matter disease, most consistent with chronic small vessel ischemic change in a patient this age. CTA neck: 1.Moderate right proximal internal carotid atherosclerotic plaque with approximately 40-50% luminal narrowing. 2.Mild left proximal internal carotid and left common carotid artery atherosclerotic plaque without significant luminal narrowing. 3.Significant tortuosity of the nondominant proximal left vertebral artery with at least mild luminal narrowing at its origin due to atherosclerotic plaque. CT perfusion: Findings consistent with completed left MCA distribution infarct. No mismatch perfusion defect. Case discussed with Dr. Whiteside by Dr. Jack (after consultation with Dr. Lyons) at 7:17 AM on 03/09/2018. By my electronic signature, I attest that I have personally reviewed the images for this examination and formulated the interpretations and opinions expressed in this report Finalized by Surinder Lyons M.D. on 03/09/2018 7:25 AM. Dictated by Jojo Jack D.O. on 03/09/2018 6:32 AM. Narrative Performed At EXAM: CTA HEAD AND NECK, CTA BRAIN PERFUSION [facility] RESULTS HISTORY: 78-year-old female. Right upper extremity weakness. Right-sided neglect. TECHNIQUE: Multiple contiguous axial images were obtained of the brain and neck following the administration of Omnipaque 350IV contrast. CTA maximum density projection images were obtained of the brain and neck with image post processing.Perfusion imaging was also obtained with CBV, MTT, TTD, and CBF mapping. COMPARISON: No prior studies are available for comparison. FINDINGS: CTA head: There is mild generalized cerebral volume loss with concordant prominence of the ventricles and subarachnoid spaces. There is low-attenuation and loss of pierson-white matter differentiation along the high posterior left frontal lobe along the primary motor and premotor cortices consistent with MCA territory infarct. This area measures approximately 2.6 cm AP x 2 cm transverse and is most consistent with an acute infarct. No additional pierson-white matter loss is identified. There is no midline shift or herniation. There is no evidence of acute intracranial hemorrhage. The basal cisterns are patent. The calvarium is intact. There is occlusion of a distal posterior left M4 branch leading to the area of infarct. There is mild calcific atherosclerotic plaque involving the bilateral distal internal carotid arteries resulting in areas of mild narrowing. There is dominance of the right vertebral artery. The left vertebral artery is smaller in caliber diffusely above the left PICA origin, most consistent with normal variant. The anterior, middle, and posterior cerebral arteries are otherwise patent without focal narrowing. No aneurysm or arteriovenous malformation is identified. CTA neck: The aortic arch vessel origins are widely patent. There is focal calcific plaque at the origin of the right vertebral artery without significant luminal narrowing. There is tortuosity of the nondominant proximal left vertebral artery with focal plaque and at least mild luminal narrowing of its origin. The left vertebral artery arises from the aortic arch. There is calcific atherosclerotic plaque within the proximal right internal carotid artery with approximately 40-50% luminal narrowing according to NASCET criteria. There is mild atherosclerotic plaque within the proximal left internal carotid artery and left common carotid artery without significant luminal narrowing. No aneurysm, AVM , or dissection is identified. There is multilevel cervical spondylosis with posterior disc osteophyte complexes and uncovertebral hypertrophy resulting in levels of marked neural foraminal narrowing and at least moderate spinal canal narrowing. The paranasal sinus and mastoid air cells are clear. The lung apices are clear other than some probable areas of mild atelectasis or small airways disease accounting for mild mosaic attenuation appearance. CT Perfusion: There is increased time to drain and mean transit time in the area of left MCA infarct at the posterior left frontal lobe, with associated decrease blood flow and volume loss, consistent with a completed infarct. No mismatch perfusion defect is identified. Procedure Note Interface, Radiant Results - 03/09/2018 7:28 AM [facility] EXAM: CTA HEAD AND NECK, CTA BRAIN PERFUSION HISTORY: 78-year-old female. Right upper extremity weakness. Right-sided neglect. TECHNIQUE: Multiple contiguous axial images were obtained of the brain and neck following the administration of Omnipaque 350 IV contrast. CTA maximum density projection images were obtained of the brain and neck with image post processing. Perfusion imaging was also obtained with CBV, MTT, TTD, and CBF mapping. COMPARISON: No prior studies are available for comparison. FINDINGS: CTA head: There is mild generalized cerebral volume loss with concordant prominence of the ventricles and subarachnoid spaces. There is low-attenuation and loss of pierson-white matter differentiation along the high posterior left frontal lobe along the primary motor and premotor cortices consistent with MCA territory infarct. This area measures approximately 2.6 cm AP x 2 cm transverse and is most consistent with an acute infarct. No additional pierson-white matter loss is identified. There is no midline shift or herniation. There is no evidence of acute intracranial hemorrhage. The basal cisterns are patent. The calvarium is intact. There is occlusion of a distal posterior left M4 branch leading to the area of infarct. There is mild calcific atherosclerotic plaque involving the bilateral distal internal carotid arteries resulting in areas of mild narrowing. There is dominance of the right vertebral artery. The left vertebral artery is smaller in caliber diffusely above the left PICA origin, most consistent with normal variant. The anterior, middle, and posterior cerebral arteries are otherwise patent without focal narrowing. No aneurysm or arteriovenous malformation is identified. CTA neck: The aortic arch vessel origins are widely patent. There is focal calcific plaque at the origin of the right vertebral artery without significant luminal narrowing. There is tortuosity of the nondominant proximal left vertebral artery with focal plaque and at least mild luminal narrowing of its origin. The left vertebral artery arises from the aortic arch. There is calcific atherosclerotic plaque within the proximal right internal carotid artery with approximately 40-50% luminal narrowing according to NASCET criteria. There is mild atherosclerotic plaque within the proximal left internal carotid artery and left common carotid artery without significant luminal narrowing. No aneurysm, AVM, or dissection is identified. There is multilevel cervical spondylosis with posterior disc osteophyte complexes and uncovertebral hypertrophy resulting in levels of marked neural foraminal narrowing and at least moderate spinal canal narrowing. The paranasal sinus and mastoid air cells are clear. The lung apices are clear other than some probable areas of mild atelectasis or small airways disease accounting for mild mosaic attenuation appearance. CT Perfusion: There is increased time to drain and mean transit time in the area of left MCA infarct at the posterior left frontal lobe, with associated decrease blood flow and volume loss, consistent with a completed infarct. No mismatch perfusion defect is identified. IMPRESSION CTA head: 1. Acute left MCA distribution infarct in the high posterior left frontal lobe with occlusion of a distal posterior left M4 branch leading to the area of infarct. 2. Mild bilateral distal internal carotid artery atherosclerotic plaque resulting in only mild luminal stenosis. 3. Mild atrophy and white matter disease, most consistent with chronic small vessel ischemic change in a patient this age. CTA neck: 1. Moderate right proximal internal carotid atherosclerotic plaque with approximately 40-50% luminal narrowing. 2. Mild left proximal internal carotid and left common carotid artery atherosclerotic plaque without significant luminal narrowing. 3. Significant tortuosity of the nondominant proximal left vertebral artery with at least mild luminal narrowing at its origin due to atherosclerotic plaque. CT perfusion: Findings consistent with completed left MCA distribution infarct. No mismatch perfusion defect. Case discussed with Dr. Whiteside by Dr. Jack (after consultation with Dr. Lyons) at 7:17 AM on 03/09/2018. By my electronic signature, I attest that I have personally reviewed the images for this examination and formulated the interpretations and opinions expressed in this report Finalized by Surinder Lyons M.D. on 03/09/2018 7:25 AM. Dictated by Jojo Jack D.O. on 03/09/2018 6:32 AM. Performing Organization Address City/State/Zipcode Phone Number [facility] RESULTS from Last 3 Months Insurance Payer Benefit Subscriber ID Type Phone Address Plan / Group MEDICARE MEDICARE xxxxxxxxxx Medicare PART A AND B Advance Directives Patient has advance care planning documents, and code status on file. For more information, please contact: [facility] [address] [place] [address] Date Inactivated Comments Code Status Date Activated 03/11/2018 4:49 PM Full Code 03/09/2018 6:26 AM Provider has discussed Code Status No, more discussion w/Patient or Family? needed
--- OUTSIDE RECORDS SUMMARY | 2018-03-11 18:57 | XMS REPORT | Encounter Summary ---
Author Author [facility] Organization [facility] Address Unknown Phone Unavailable Care Team Providers Care Professor Of Political Science Name Role Phone No Pcp, Na PCP Unavailable Reason for Visit * Auth/Cert Referred By Contact Referred To Contact Status Reason Specialty Diagnoses / Procedures Diagnoses Stroke (cerebrum) (HCC) NSTEMI; Stroke Encounter Details Care Team Description Date Type Department John Carpio MD [address] [place] [address] [phone] Mallory Walker MD [address] [facility] [address] [place] [address] Nolan Bettencourt MD [address] [place] [address] Estelita Hobbs MD [address] [facility] [address] [place] [address] 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 as of this encounter Last Filed Vital Signs Time Taken Vital Sign Reading 03/11/2018 2:00 PM RATE ANALYST Blood Pressure 127/80 03/11/2018 2:00 PM RATE ANALYST Pulse 70 03/11/2018 2:00 PM RATE ANALYST Temperature 36.9 C (98.4 F) - Respiratory Rate - 03/11/2018 2:00 PM RATE ANALYST Oxygen Saturation 97% - Inhaled Oxygen - Concentration 03/10/2018 4:00 AM RATE ANALYST Weight 58.7 kg (129 lb 6.6 oz) 03/09/2018 11:31 AM RATE ANALYST Height 147.3 cm (4' 10") 03/10/2018 4:00 AM RATE ANALYST Body Mass Index 27.05 in this encounter Functional Status Date of Assessment Functional Status Response 03/10/2018 Does the patient have a hearing impairment: No as of this encounter Medications at Time of Discharge Start Date End Date Medication Sig Dispensed Refills 03/12/2018 06/10/2018 aspirin 81 mg chewable Chew one 90 tablet 0 tablet tablet by mouth daily for 90 days. Take with food. atorvastatin (LIPITOR) 40 Take 1 tablet 0 mg tablet by mouth at bedtime daily. carvedilol (COREG) 25 mg Take 25 mg by 0 tablet mouth twice daily with meals. Take with food. citalopram (CELEXA) 20 mg Take 20 mg by 0 tablet mouth every morning. clopiDOGrel (PLAVIX) 75 Take 75 mg by 0 mg tablet mouth every morning. ezetimibe (ZETIA) 10 mg Take 10 mg by 0 tablet mouth every morning. famotidine (PEPCID) 20 mg Take 20 mg by 0 tablet mouth twice daily. lisinopril (PRINIVIL; Take 1 tablet 0 ZESTRIL) 5 mg tablet by mouth every morning. as of this encounter Progress Notes * Orquidea Graham RN - 03/11/2018 2:34 PM RATE ANALYST Report given to ANGEL Moore ([phone]) at 1130. Unable to get a hold of son Gautam Garcia ([phone]); notified Nohemi Kohler [facility] she notified me she left him a message and he was agreeable to the dcp. Pt belongings with pt. [address] [place] [facility] here to transport Pt via wheelchair to [facility]. Transfer packet with pt at this time. ANALYST * Sharlene Sadler - 03/11/2018 11:32 AM RATE ANALYST SPEECH-LANGUAGE PATHOLOGY DAILY TREATMENT NOTE Patient seen 1x this date. Documentation reflects all daily treatment sessions. SUMMARY OF THERAPY SESSION: Dysphagia tx completed w/ pt's oropharyngeal swallow observed to be within functional limits. Pt's aphasia greatly improved when compared to initial evaluation, however, pt will benefit from ongoing speech therapy at next level of care. Reading comprehension at least moderately impaired at sentence level. Please see below for additional documentation. RECOMMENDATIONS: Advance to regular solids & continue w/ thin liquids. Ongoing speech therapy at next level of care. Pills as pt tolerates. Discussed pt w/ RN and paged primary team re: recommendations. Goal : Pt will tolerate full liquid diet with thin liquids with <5% s/s of aspiration and without negative pulmonary changes. Met Comment: Pt observed w/ thin liquids which she tolerated free of overt s/s aspiration. She was not directly observed w/ full liquid/naturally puree solids however nursing reported pt tolerating p.o. Free of overt s/s aspiration. Discharge this goal as met Goal : Pt will participate in ongoing swallow trials (mech soft, regular) for purpose of diet advancement. Met Comment: Pt observed w/ mech soft & regular solids. Oropharyngeal swallow observed to be within functional limits. Mastication mildly slowed but anticipate this is pt's baseline function w/ overall slow rate of oral intake. Mastication & AP transfer judged to be WNL w/o oral residue. Laryngeal elevation & swallow initiation judged to be WNL upon completion of laryngeal palpation. Overt s/s aspiration not observed w/ regular or mech soft solids. Discharge this goal as met Goal : Pt will follow one and two step commands with 75% accuracy, provided repetition/cues. Not addressed Comment: Continue to address this goal Goal : Pt will demonstrate reading comprehension at sentence level with 75% accuracy. Not met Comment: Ongoing reading eval completed: sentence level yes/no questions: 4/7 and sentence level given multiple choice: 50%. Continue to address this goal Goal : Pt will repeat short, simple sentences with 75% accuracy and reduced paraphasias. Not addressed Comment: No longer appropriate Goal : Pt will participate in trials of melodic intonation therapy to improve spontaneous speech provided mod cues. Not addressed Comment: Probed expressive language: pt able to generate 3 words/concrete category: 5/5 and difficulty generating 5/category. Written expression: pt unable to generate a sentence re: self, multiple other simple subjects provided. Confrontation namin/6 w/ single phonemic error observed. Discharge goal as inappropriate PLAN / RECOMMENDATIONS: Continue treatment 3-x/week and Patient would benefit from further speech therapy post acute hospitalization. Therapist: Sharlene Sadler MA, L/CCC-ORIENTATION AND MOBILITY SPECIALIST Voalte: [id number] Date: 03/11/2018 ANALYST * Antionette Jean, PT - 03/11/2018 9:00 AM RATE ANALYST PHYSICAL THERAPY PROGRESS NOTE MOBILITY: Mobility Progressive Mobility Level: Walk laps Distance Walked (feet): 440 ft Level of Assistance: Assist X1 Assistive Device: None Time Tolerated: 0-10 minutes SUBJECTIVE: Subjective Significant hospital events: Pt presented to OSH with Right weakness, aphasia, left preference NIHSS 12. She received a full dose aspirin and tPA. EKG with V2 ST elevation concerning for recent infarction. Mental / Cognitive Status: Alert;Cooperative;Follows Commands(single step commands + expressive aphasia) Pain: Patient demonstrates no signs of pain Comments: Pt was able to locate items with cuing on the right side. Pt was using her right UE for management of her comb. BED MOBILITY/TRANSFERS: Bed Mobility/Transfers Bed Mobility: Supine to Sit: Standby Assist Transfer Type: Sit to/from Stand Transfer: Assistance Level: To/From;Bed;Standby Assist Transfer: Assistive Device: None Transfers: Type Of Assistance: For Safety Considerations;Verbal Cues End Of Activity Status: Up in Chair;Nursing Notified;Instructed Patient to Request Assist with Mobility;Instructed Patient to Use Call Light(chair alarm in place) GAIT: Gait Gait Distance: 440 feet Gait: Assistance Level: Minimal Assist Gait: Assistive Device: None Gait: Descriptors: Pace: Slow;No balance loss Comments: Pt minimally verbal. Pt was able to look in all directions with no loss of balance but with significantly slowed gait speed. Pt with slowed mental processing for command following and responses. EDUCATION: Education Persons Educated: Patient Patient Barriers To Learning: Cognitive Deficits(aphasia) Interventions: Repetition of Instructions Teaching Methods: Verbal Instruction Patient Response: More Instruction Required Topics: Plan/Goals of PT Interventions;Importance of Increasing Activity; Recommend Continued Therapy ASSESSMENT/PROGRESS: Assessment/Progress Impaired Mobility Due To: Decreased Activity Tolerance;Impaired Balance;Safety Concerns Assessment/Progress: Should Improve w/ Continued PT AM-PAC 6 Clicks Basic Mobility Inpatient Turning from your back to your side while in a flat bed without using bed rails : None Moving from lying on your back to sitting on the side of a flatbed without using bedrails : None Moving to and from a bed to a chair (including a wheelchair): A Little Standing up from a chair using your arms (e.g. wheelchair, or bedside chair): A Little To walk in hospital room: A Little Climbing 3-5 steps with a railing: A Little Raw Score: 20 Standardized (T-scale) Score: 43.99 Basic Mobility CMS 0-100%: 33.32 CMS G Code Modifier for Basic Mobility: CJ GOALS: Goals Goal Formulation: With Patient Time For Goal Achievement: 3 days Pt Will Ambulate: 151-200 Feet, w/ No Device, Independently PLAN: Plan Treatment Interventions: Mobility Training;Neuromuscular Reeducation Plan Frequency: 5 Days per Week PT Plan for Next Visit: Balance test; trial stairs. Focus on attention to right environment. 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 The patient is admitted with acute ischemic stroke s/p IVtPA, NSTEMI, HTN, sinus tachycardia. I spent 35 minutes (excluding time spent performing or supervising any procedures) providing and personally directing services including neuro monitoring and management, pain/sedation/delirium mgt, hemodynamic monitoring and management, lab and radiology review, medication review and management, fluid and electrolyte management and coordination of care. Overnight Events: No new symptoms o/n. Repeat CT with mild hemorrhagic transformation. O/e: AO x 4, improved verbalization, repetition improved, reduced fluency, FC x 4 symmetrically, EOMI, right facial flattening, sensation intact to LT b/l - start aspirin + plavix + atorvastatin 40 mg for secondary prevention - cardioembolism is also possible but felt less likely. MRI unable to be performed because of incompatible ICD - appreciate cardiology recs. - start lisinopril 5 mg + coreg 6.25 mg bid for CHF, compensated - rehab placement - start sq heparin dvt ppx - stable for transfer to [facility] Staff name: Moon Kuhn MD Date: 03/10/2018 __ Objective: Medications: Scheduled Meds: aspirin chewable tablet 81 mg 81 mg Oral QDAY atorvastatin (LIPITOR) tablet 40 mg 40 mg Oral QDAY carvedilol (COREG) tablet 6.25 mg 6.25 mg Oral BID clopiDOGrel (PLAVIX) tablet 75 mg 75 mg Oral QDAY docusate (COLACE) capsule 100 mg 100 mg Oral BID heparin (porcine) PF syringe 5,000 Units 5,000 Units Subcutaneous Q8H lisinopril (PRINIVIL; ZESTRIL) tablet 5 mg 5 mg Oral QDAY milk of magnesia (CONC) oral suspension 10 mL 10 mL Oral QDAY senna/docusate (SENOKOT-S) tablet 1 tablet 1 tablet Oral BID Continuous Infusions: PRN and Respiratory Meds:acetaminophen Q4H PRN, EPINEPHrine PF Q5 MIN PRN, EPINEPHrine racemic PRN, labetalol (NORMODYNE; TRANDATE) injection PRN, ondansetron (ZOFRAN) IV Q6H PRN Vital Signs: Last Filed Vital Signs: 24 Hour Range BP: 133/71 (03/10 1200) Temp: 36.7 C (98.1 F) (03/10 1200) Pulse: 84 (03/10 1200) Respirations: 19 PER MINUTE (03/10 1200) SpO2: 97 % (03/10 1200) O2 Delivery: None (Room Air) (03/10 1200) Weight: 58.7 kg (129 lb 6.6 oz) (03/10 0400) BP: (95-153)/(52-99) Temp: [36.4 C (97.5 F)-36.9 C (98.5 F)] Pulse: [64-91] Respirations: [14 PER MINUTE-30 PER MINUTE] SpO2: [95 %-99 %] O2 Delivery: None (Room Air) Intensity Pain Scale (Self Report): (not recorded) Vitals: 03/09/18 0900 03/09/18 1131 03/10/18 0400 Weight: 55.7 kg (122 lb 12.7 oz) 55.7 kg (122 lb 12.7 oz) 58.7 kg (129 lb 6.6 oz ) Intake/Output Summary: (Last 24 hours) Intake/Output Summary (Last 24 hours) at 03/10/2018 1247 Last data filed at 03/10/2018 1200 Gross per 24 hour Intake 388 ml Output 1100 ml Net -712 ml Artificial airway: None Ventilator/ Respiratory Therapy: No Vent weaning trial: Not applicable Prophylaxis Review: Lines: No Urinary Catheter: No Antibiotic Usage: No VTE: Pharmacological prophylaxis; SQ Heparin and Mechanical prophylaxis; Sequential compression device Lab Review: Pertinent labs reviewed Point of Care Testing: (Last 24 hours): Glucose: (!) 127 (03/10/18 0410) Radiology and Other Diagnostic Procedures Review: Pertinent radiology reviewed. Moon Kuhn MD 03/10/2018 Pager: [phone] ANALYST * Mg Barton MD - 03/10/2018 9:46 AM RATE ANALYST Cardiology: Remains in normal sinus. ECHO from yesterday no thrombus. IMPRESSION 03/10/[address]: 1. Development of subtle vague intraparenchymal hemorrhage in the high posterior left frontal lobe in the region of previously demonstrated infarct compatible with hemorrhagic transformation. 2. Mildly increased localized mass effect from the above process without midline shift or herniation. 3. No new area of loss of pierson-white matter differentiation. Not an interventional candidate from cardiovascular perspective. Results for ADELINE GARCIA ( ) as of 03/10/2018 09:46 Ref. Range 03/10/2018 04:10 Sodium Latest Ref Range: 137 - 147 MMOL/L 138 Potassium Latest Ref Range: 3.5 - 5.1 MMOL/L 4.1 Chloride Latest Ref Range: 98 - 110 MMOL/L 105 CO2 Latest Ref Range: 21 - 30 MMOL/L 26 Anion Gap Latest Ref Range: 3 - 12 7 Blood Urea Nitrogen Latest Ref Range: 7 - 25 MG/DL 17 Creatinine Latest Ref Range: 0.4 - 1.00 MG/DL 1.07 (H) eGFR Non Latest Ref Range: >60 mL/min 50 (L) eGFR Latest Ref Range: >60 mL/min >60 Glucose Latest Ref Range: 70 - 100 MG/DL 127 (H) Results for ADELINE GARCIA ( ) as of 03/10/2018 09:46 Ref. Range 03/09/2018 07:00 Cholesterol Latest Ref Range: <200 MG/DL 217 (H) Triglycerides Latest Ref Range: <150 MG/DL 138 HDL Latest Ref Range: >40 MG/DL 37 (L) LDL Latest Ref Range: <100 MG/DL 165 (H) VLDL Latest Units: MG/DL 28 Non HDL Cholesterol Latest Units: MG/DL 180 Results for ADELINE GARCIA ( ) as of 03/10/2018 09:46 Ref. Range 03/09/2018 07:00 03/09/2018 08:06 03/09/2018 10:40 Troponin-I Latest Ref Range: 0.0 - 0.05 NG/ML 0.67 (H) 0.74 (H) 0.78 (H) Results for ADELINE GARCIA ( ) as of 03/10/2018 09:46 Ref. Range 03/09/2018 08:06 B Type Natriuretic Peptide Latest Ref Range: 0 - 100 PG/ML 334.0 (H) Interpretation Summary The LV is mildly dilated. The estimated LV ejection fraction is 35%. No LV mural thrombus appears to be present. Left atrium is moderately enlarged. Mild mitral regurgitation is present. Mild tricuspid regurgitation is noted. The estimated PA systolic pressures 45- 50 mmHg. There was no evidence of intracardiac right to left shunting on the bubble study. There are no old studies available for comparison. Inpatient Check [03/09/2018 2:51:08 PM - MAGALI MOSCOSO] Inpatient programming for dual chamber [facility] PPM. Device function: Appropriate. Presenting EGM shows ASVS 85 bpm. Events noted since 03/14/16: Atrial: 85 AMS event, events showed falling in refractory, no EGM's showed start of event, MS put pt back into NR, longest duration 12 seconds. Ventricular: 14 VHR events, all EGM's show VS 150-180 bpm, all rates very regular, EGM's almost look like FFRWOS in the A lead, no onset/term seen. RV Pacing%: <1 Programming changes: None Pt is followed by outside provider Routed to Dr. Lew for review/cosign. Device is NOT MRI compatible. Ordering team notified. 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 female with history of CAD, HTN, CKD who had acute onset of right sided weakness and neglect at 2230 on 03/08. Initial NIHSS [address] head negative for bleed. Per Stroke Neurology OSH instructed to give tPA as patient was just at the [facility] cooper from [facility] [place]. There is concern for NSTEMI with troponin 1.[address] elevation in V2 per OSH. Pt was flown to [facility] for further evaluation and treatment. CTA/P confirmed left completed MCA stroke. Hospital and ICU course: 03/09 admitted to [facility] Neuro: left MCA stroke s/p tPA CTA/CTP here showed completed left MCA infarction without mismatch, distal left mca thrombus - unable to obtain MRI due to PPM - CT this AM with small area of hemorrhagic conversion - continue ASA - PT/OT/ST, rehab medicine consulted - neuro checks q 1 hours Pain Management: - Tylenol PRN - Assess for delirium daily Cardiac: CAD, HLD, HTN, CABG, Permanent Pacemaker 03/09 Echo: The LV is mildly dilated. The estimated LV ejection fraction is 35 %. No LV mural thrombus appears to be present.Left atrium is moderately enlarged.Mild mitral regurgitation is present. Mild tricuspid regurgitation is noted. The estimated PA systolic pressures 45- 50 mmHg. STEMI Troponin 1.5 @OSH - Trend Q6 last 0.78 - ECG with NSR - Cardiology consulted appreciate recs - ASA daily - SBP < 160 - continue coreg 6.25 mg BID - start lisinopril 5 mg daily - resume lipitor 40 mg daily Respiratory: on room air Spo2 goal >95%, GI: Feeding: full liquid diet - bowel regimen, ensure daily BM (last 03/10) Heme: daily CBC - Hgb 13.9, Plt 171 ID: - afebrile - WBC 6.5 Renal: CKD (unclear baseline) - BUN 17, Creat 1.07 - UA unremarkable - Daily BMP - Aim for normovolemia Intake/Output Summary (Last 24 hours) at 03/10/2018 1220 Last data filed at 03/10/2018 1200 Gross per 24 hour Intake 388 ml Output 1100 ml Net -712 ml Endocrine: - Hgb a1c 6.4 - Blood glucose goal 100-180mg/dl FEN: - IVF: - Magnesium goal >2.0, i-Gigi goal > 1.0, Potassium goal >4.0 mEq/L Prophylaxis Review: A)GI: none B) Lines: No C) Urinary Catheter: No D) Antibiotic Usage: No E) VTE: Mechanical prophylaxis; Sequential compression device F) Isolation: none G)Seizures: none I) Restraints: Patient assessed for need for restraints. Disposition/Family: Admit to [facility] Primary service: NCC Consults: Cardiology and Stroke Neurology SUBJECTIVE Adeline Garcia is a 78 y.o. female. Overnight Events: No new events noted. Patient denies pain, reports having trouble with speech. OBJECTIVE Vital Signs: Last Filed Vital Signs: 24 Hour Range BP: 121/81 (03/10 699) Temp: 36.6 C (97.8 F) (03/10 399) Pulse: 67 (03/10 699) Respirations: 17 PER MINUTE (03/10 699) SpO2: 96 % (03/10 699) O2 Delivery: None (Room Air) (03/10 699) Height: 147.3 cm (58") (03/09 1131) Weight: 58.7 kg (129 lb 6.6 oz) (03/10 399) Dosing / Dry Weight: 55.7 kg (122 lb 12.7 oz) (03/09 900) BP: (95-166)/(52-101 ) Temp: [36.4 C (97.5 F)-36.9 C (98.5 F)] Pulse: [64-120] Respirations: [13 PER MINUTE-30 PER MINUTE] SpO2: [95 %-99 %] O2 Delivery: None (Room Air) Intensity Pain Scale (Self Report): (not recorded) Vitals: 03/09/18 0900 03/09/18 1131 03/10/180 Weight: 55.7 kg (122 lb 12.7 oz) 55.7 kg (122 lb 12.7 oz) 58.7 kg (129 lb 6.6 oz ) Artificial airway: None Ventilator/ Respiratory Therapy: No Vent weaning trial: Not applicable Lines: Peripheral Line Drains: None Critical Care Vitals: ICP Monitoring: Hemodynamics/Oxycalcs: Intake/Output Summary: (Last 24 hours) Intake/Output Summary (Last 24 hours) at 03/10/2018 0743 Last data filed at 03/09/2018 2000 Gross per 24 hour Intake 570 ml Output 1250 ml Net -680 ml Physical Exam: Blood pressure 121/81, pulse 67, temperature 36.6 C (97.8 F), height 147.3 cm (58"), weight 58.7 kg (129 lb 6.6 oz), SpO2 96 %. Lucia coma score: E: 4 - Opens eyes on own M: 6 - Follows simple motor commands V: 4 - Seems confused, disoriented Neuro: Mental Status: alert, oriented x 3 Cranial Nerves: - face symmetric, speech clear, mild word finding difficulty - Pupil exam: Size: 3 Reactivity: brisk - EOM: intact Motor: Strength: 5/5; in all extremities Slight drift RUE Sensory: normal Lungs: clear to auscultation bilaterally Heart: regular rate and rhythm, S1, S2 normal, no murmur, click, rub or gallop Abdomen: soft, non-tender. Bowel sounds normal. No masses, no organomegaly Extremities: extremities normal, atraumatic, no cyanosis or edema Skin: Skin color, texture, turgor normal. No rashes or lesions Point of Care Testing: (Last 24 hours) Glucose: (!) 127 (03/10/18 0410) Lab Review: Pertinent labs reviewed Radiology and Other Diagnostic Procedures Review: Pertinent radiologic and diagnostic procedures reviewed. TIZ Workman Date: 03/10/[phone] I spent 45 minutes managing the care of this patient. Adeline Garcia is critically ill with ischemic stroke, HTN, CAD. Cares included: detailed neurologic and systems exam, medication review, laboratory data review and interpretation, electrolyte management, review of available imaging, DVT/PE prophylaxis review, diet review, activity review,and coordination of care with consulted teams ANALYST * Orquidea Hyde RN - 03/10/2018 4:00 AM RATE ANALYST Pt traveled to [place] by wheelchair. Tolerated travel well, VSS. Will continue to monitor. 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 The patient is critically ill with acute ischemic stroke s/p IVtPA, NSTEMI, HTN, sinus tachycardia. I spent 40 minutes (excluding time spent performing or supervising any procedures) providing and personally directing critical care services including neuro monitoring and management, ventilator management, pain/sedation/delirium mgt, hemodynamic monitoring and management, lab and radiology review, medication review and management, fluid and electrolyte management and coordination of care. Overnight Events: admitted s/p tPA at OSH, troponin elevated there. Denies CP/ SOB. O/e: Awake, expressive aphasia, repetition partly intact, comprehension normal, FC x 4 symmetrically, EOMI, face symmetric, tongue midline - post tPA neurochecks, no asa or sq heparin until 24 hours of stability. Received asa at OSH - unable to perform MRI due to ICD - repeat troponin lower, no PCI indicated - start atorvastatin 40 mg today - PT/OT/ST consults - SBP goal < 160 mmHg, HR < 100 Dispo: This patient is critically ill with dysfunction of multiple organ systems and is at risk for additional life threatening deterioration. Cont ICU care. Staff name: Moon Kuhn MD Date: 03/09/2018 __ Objective: Medications: Scheduled Meds: Continuous Infusions: PRN and Respiratory Meds:diphenhydrAMINE Once PRN AND famotidine Once PRN, EPINEPHrine PF Q5 MIN PRN, EPINEPHrine racemic PRN, labetalol (NORMODYNE; TRANDATE) injection PRN, methylPREDNISolone (SOLU-MEDROL) IV Once PRN Vital Signs: Last Filed Vital Signs: 24 Hour Range BP: 142/99 (03/09 1330) Temp: 36.5 C (97.7 F) (03/09 1200) Pulse: 85 (03/09 1330) Respirations: 17 PER MINUTE (03/09 1330) SpO2: 96 % (03/09 1330) O2 Delivery: None (Room Air) (03/09 133) Height: 147.3 cm (58") (03/09 113) Weight: 55.7 kg (122 lb 12.7 oz) (03/09 1131) Dosing / Dry Weight: 55.7 kg (122 lb 12.7 oz) (03/09 0900) BP: (130-171)/(78- 120) Temp: [36.4 C (97.5 F)-36.5 C (97.7 F)] Pulse: [84-121] Respirations: [13 PER MINUTE-28 PER MINUTE] SpO2: [96 %-99 %] O2 Delivery: None (Room Air) Intensity Pain Scale (Self Report): (not recorded) Vitals: 03/09/18 0900 03/09/18 1131 Weight: 55.7 kg (122 lb 12.7 oz) 55.7 kg (122 lb 12.7 oz) Intake/Output Summary: (Last 24 hours) Intake/Output Summary (Last 24 hours) at 03/09/2018 1401 Last data filed at 03/09/2018 1200 Gross per 24 hour Intake 400 ml Output 1150 ml Net -750 ml Artificial airway: None Ventilator/ Respiratory Therapy: No Vent weaning trial: Not applicable Prophylaxis Review: Lines: No Urinary Catheter: No Antibiotic Usage: No VTE: Mechanical prophylaxis; Sequential compression device Lab Review: Pertinent labs reviewed Point of Care Testing: (Last 24 hours): Glucose: (!) 146 (03/09/18 0700) Radiology and Other Diagnostic Procedures Review: Pertinent radiology reviewed. Moon Kuhn MD 03/09/2018 Pager: [phone] ANALYST * Tika Fraga OT - 03/09/2018 9:03 AM RATE ANALYST OCCUPATIONAL THERAPY ASSESSMENT NOTE Patient Name: Adeline Garcia Room/Bed: [place] [address] Admitting Diagnosis: NSTEMI; Stroke Mobility Progressive Mobility Level: Walk in hallway Distance Walked (feet): 150 ft Level of Assistance: Assist X1 Assistive Device: None Time Tolerated: 11-30 minutes Activity Limited By: Change in vital signs Subjective Pertinent Dx per Physician: 78 y.o female who presented to OSH with Right weakness, aphasia, left preference NIHSS 12. She received a full dose aspirin and tPA. EKG with V2 ST elevation concerning for recent infarction, Troponin 1.151. Precautions: Falls Pain / Complaints: Patient agrees to participate in therapy;Patient demonstrates no signs of pain Objective Psychosocial Status: Willing and Cooperative to Participate Persons Present: Physical Therapist Home Living Comment: Patient unable to provide home setup or prior level of function due to aphasia. No family present to confirm. Vision Comment: Patient demonstrated R neglect, would bring eyes to the right of midline with a lot of cueing. Did not turn head past midline even with tactile cues. Maximum cues required to attend to things on the Right. ADL's Where Assessed: Standing at Sink;In Bathroom;Edge of Bed Grooming Assist: Moderate Assist Grooming Deficits: Wash/Dry Hands;Teeth Care;Brushing Hair(Hand over hand assist to initiate and transition between tasks) LE Dressing Assist: Moderate Assist LE Dressing Deficits: Don/Doff R Sock(Pt donned L sock, assist to get over all toes and heel on R) Toileting Assist: Minimal Assist Toileting Deficits: Steadying;Perineal Hygiene Functional Transfer Assist: Minimal Assist Functional Transfer Deficits: Toilet Transfer;Room mobility without assistive device Comment: Patient ambulated into bathroom for ADLs, then in hallway. Patient seated in chair at end of session, TABS alarm on, Activity Tolerance Endurance: 3/5 Tolerates 25-30 Minutes Exercise w/Multiple Rests Sitting Balance: 4/5 Moves/Returns Trunkal Midpoint 1-2 Inches in Multiple Planes Cognition Overall Cognitive Status: Impaired Expression: Expressive Aphasia Problem Solving: Decreased Judgment/Safety;Direction Following Assist;Cueing to Sequence Task;Unable to Utilize Call Light Attention: Awake/Alert Cognition Comment: Patient followed one step commands consistently with some tactile cues. Patient inconsistent with yes/no answers. Patient pleasant and participated well in therapy. UE AROM Overall BUE AROM WNL: Yes Coordination: Mild Delay(R hand) Grasp: Bilateral Grasp Functional for Activity UE Strength / Tone Overall Strength / Tone: WFL Able to Perform ADL Tasks Education Persons Educated: Patient Barriers To Learning: Cognitive Deficits;Impaired Communication Interventions: Repetition of Instructions;Physical Cueing Teaching Methods: Verbal Instruction;Demonstration Patient Response: Return Demonstration;More Instruction Required Topics: Role of OT, Goals for Therapy;ADL Compensatory Techniques Goal Formulation: With Patient Assessment Assessment: Decreased ADL Status;Decreased Safe/Judg during ADL;Decreased Cognition;Visual Deficit;Decreased Fine Motor Coordination;Decreased Self-Care Trans;Decreased High-Level ADLs Prognosis: Good;w/Cont OT s/p Acute Discharge AM-PAC 6 Clicks Daily Activity Inpatient Putting on and taking off regular lower body clothes?: A Lot Bathing (Including washing, rinsing, drying): Total Toileting, which includes using toilet, bedpan, or urinal: A Little Putting on and taking off regular upper body clothing: A Little Taking care of personal grooming such as brushing teeth: A Little Eating meals?: Total Daily Activity Raw Score: 13 Standardized (t-scale) score: 32.03 CMS 0-100% Score: 63.03 CMS G Code Modifier: CL Plan OT Frequency: 5x/week OT Plan for Next Visit: Fine motor coordination and visual scanning to R during ADLs. ADL Goals Patient Will Perform All ADL's: w/ Stand By Assist Functional Transfer Goals Pt Will Perform All Functional Transfers: w/ Stand By Assist Vision Goals Pt Will Attend To R Of Body / Environment: 100% of the time, w/ Minimal Cues OT Discharge Recommendations OT Discharge Recommendations: Inpatient Setting, Recommend PM&R Consult to address most appropriate level of rehabilitation placement ([phone]). Equipment Recommendations: Too early to be determined Therapist: AUBRIE Astorga/Margie [id number] Date: 03/09/2018 ANALYST * Abbey Hernandez, PT - 03/09/2018 9:03 AM RATE ANALYST PHYSICAL THERAPY ASSESSMENT MOBILITY: Mobility Progressive Mobility Level: Walk in hallway Distance Walked (feet): 150 ft Level of Assistance: Assist X1 Assistive Device: None Time Tolerated: 11-30 minutes Activity Limited By: Change in vital signs SUBJECTIVE: Subjective Significant hospital events: 78 y.o female who presented to OSH with Right weakness, aphasia, left preference NIHSS 12. She received a full dose aspirin and tPA. EKG with V2 ST elevation concerning for recent infarction, Troponin 1.151. Mental / Cognitive Status: Alert;Cooperative;Follows Commands(single step commands + expressive aphasia) Persons Present: Occupational Therapist Pain: Patient demonstrates no signs of pain Comments: R inattention noted; requiring many cues to turn eyes to right; head never crossed midline to right. Comments: Pt unable to report history. ROM: ROM LE ROM WFL: Yes STRENGTH: Strength Overall Strength: WFL BED MOBILITY/TRANSFERS: Bed Mobility/Transfers Bed Mobility: Supine to Sit: Minimal Assist;Head of Bed Elevated;No Rail Transfer Type: Sit to/from Stand Transfer: Assistance Level: To/From;Bed;Bed Side Chair;Standby Assist(minimal assist to get back into tall bed) Transfer: Assistive Device: None Transfers: Type Of Assistance: For Safety Considerations;Verbal Cues End Of Activity Status: Up in Chair;Nursing Notified;Instructed Patient to Request Assist with Mobility;Instructed Patient to Use Call Light(pads alarm activated) GAIT: Gait Gait Distance: 150 feet Gait: Assistance Level: Minimal Assist Gait: Assistive Device: None Gait: Descriptors: Pace: Normal;Pathway deviations;No balance loss Activity Limited By: (elevated heart rate) EDUCATION: Education Persons Educated: Patient Patient Barriers To Learning: Cognitive Deficits(aphasia) Interventions: Repetition of Instructions Teaching Methods: Verbal Instruction Patient Response: More Instruction Required Topics: Plan/Goals of PT Interventions;Importance of Increasing Activity; Recommend Continued Therapy ASSESSMENT/PROGRESS: Assessment/Progress Impaired Mobility Due To: Decreased Activity Tolerance;Impaired Balance;Safety Concerns Assessment/Progress: Should Improve w/ Continued PT AM-PAC 6 Clicks Basic Mobility Inpatient Turning from your back to your side while in a flat bed without using bed rails : None Moving from lying on your back to sitting on the side of a flatbed without using bedrails : A Little Moving to and from a bed to a chair (including a wheelchair): A Little Standing up from a chair using your arms (e.g. wheelchair, or bedside chair): A Little To walk in hospital room: A Little Climbing 3-5 steps with a railing: A Little Raw Score: 19 Standardized (T-scale) Score: 42.48 Basic Mobility [facility] 0-100%: 36.99 [facility] G Code Modifier for Basic Mobility: CJ GOALS: Goals Goal Formulation: With Patient Time For Goal Achievement: 3 days Pt Will Ambulate: 151-200 Feet, w/ No Device, Independently G-Codes: Mobility [id number] Current Status: 20-39% Impairment G8979 Goal Status: 1-19% Impairment Based on above evaluation and clinical judgment. PLAN: Plan Treatment Interventions: Mobility Training;Neuromuscular Reeducation Plan Frequency: 5 Days per Week PT Plan for Next Visit: Balance test; trial stairs. Focus on attention to right environment. RECOMMENDATIONS: PT Discharge Recommendations PT Discharge Recommendations: Inpatient Setting;Recommend Physical Medicine and Rehabilitation Consult to address most appropriate level of rehabilitation placement Therapist: Abbey Hernandez, PT Date: 03/09/2018 ANALYST Deisy Patrick - 03/09/2018 9:01 AM RATE ANALYST SPEECH-LANGUAGE PATHOLOGY CLINICAL SWALLOW // LANGUAGE ASSESSMENTS EVALUATION SUMMARY Clinical swallow and brief language evaluations completed today. Pt exhibits mild oral dysphagia, characterized by difficulty with mastication and prolonged oral phase. Pt exhibits no s/s of aspiration with solids or liquids this date. Pt exhibits moderate expressive/receptive aphasia. Pt is able to follow one- step commands fairly consistently, but has increased difficulty with two step. Repetition impaired. Pt having difficulty producing spontaneous speech; however , language abilities improved within automatic speech tasks, naming, and sentence completion. Simple reading/writing abilities appear intact. Please see below for details/recommendations. Recommendations Full Liquid Diet, Thin Liquids -Small Bites/Sips, Slow Rate of Intake, assistance During Meals Medications as tolerated Ongoing ST to manage dysphagia To maximize communication, allow pt extra time to communicate thoughts. Provide information/instructions within simple, short sentences Pt will require ST at next level of care to address aphasia Consistent supervision recommended upon discharge as anticipate patient's impaired communication will impact safety LANGUAGE EVALUATION AUDITORY COMPREHENSION One Step Commands: 3/5 Two Step Commands: 0/1; tasks discontinued d/t difficulty level Sentence Repetition: 1/3; pt able to repeat short, simple sentence. Increased difficulty and paraphasias within longer sentences VERBAL EXPRESSION Name: Pt able to state her name when given extra time : Pt unable to state full , correct Confrontation Namin/7; some minor errors (i.e., called "pencil" a "pen", but was able to correct when provided min cues. Intermittently required phonemic cues to correctly name common objects. Sentence Completion: 4/5 Automatic Speech Tasks: Was able to count to 10, state days of week, and months of year with paraphasias present . Initial phonemic cues intermittently required. Picture Description/Spontaneous Speech: Spontaneous speech very limited for pt at this time. Within "[employer]" picture description task, pt able to state answers to direct questions from ORIENTATION AND MOBILITY SPECIALIST regarding the picture, but unable to sponteneously describe picture. For example, when asked what was happening at the sink, pt replied, "splash". When asked what the mom was doing, pt stated "drying dishes" READING Word Level: 100% accuracy WRITING Name: Pt able to write first name with decreased legibility . Was able to write "L " of last name, but was not legible after that.Object Name: Was able to write "cup". SWALLOW EVALUATION Oral Stage Summary*: Oral stage of swallow mildly impaired. Normal withdraw and formation. Mastication and transfer noted to be prolonged , especialy with mechanical soft solids. Do not anticipate problematic or abnormal premature spillage. Pharyngeal Stage Summary*: Pharyngeal stage of swallow judged to be WFL . Swallow initiation timely with sufficient laryngeal elevation, as judged via laryngeal palpation. No s/s of aspiration with thin liquids (single or consecutive drinks) by straw x7-10, pureed solids x5, or mech soft solids x2 Plan: Continue Treatment __x/week (Comment)., Patient Would Benefit from Further Speech Therapy Post Acute Hospitalization.(3-5) Prognosis: Fair NOMS Dysphagia Ratin-Mild Dysphagia -Swallow safe w/ min diet restriction &/ or occasionally requires min cues to use compensatory strategies. May occasionally self-cue. All nutrition/hydration needs met by mouth at mealtime. Results Reported to Physician: Yes Objective* Relevant Med Background: Adeline Garcia is a 78 y.o. female with h/o 78 yof with pmh CKD, HLD, DM2, HTN who presented to [facility] with Right weakness, aphasia, left preference NIHSS 12 at 2230. She received a full dose aspirin and later tPA at 0257. Chest XR: pending MRI Head: pending CTA head 03/09/18 1. Acute left MCA distribution infarct in the high posterior left frontal lobe with occlusion of a distal posterior left M4 branch leading to the area of infarct. 2. Mild bilateral distal internal carotid artery atherosclerotic plaque resulting in only mild luminal stenosis. 3. Mild atrophy and white matter disease, most consistent with chronic small vessel ischemic change in a patient this age. Hearing: WFL Psychosocial Status: Willing and Cooperative to Participate Persons Present: None Subjective* Pain: Patient demonstrates no signs of pain Trach Presence: No Feeding Tube Present During Eval: None Nutrition* Nutrition Prior To Hospitalization: Regular, Thin Liquids Current Form Of Nutrition: NPO Oral Mech Exam Oral Mech WFL*: No Oral [facility] Exam Summary*: Mild right sided lingual deviation. Otherwise, strength /ROM/coordination appears adequate. Vocal quality hypophonic but otherwise WNL. Volitional cough strong. Pt with dentures in place during evaluation. Swallow Strategies Small Bites and Sips: Effective Slow Rate of Intake: Effective Education* Persons Educated: Patient Barriers To Learning: Impaired Communication Interventions: Staff Educated, Provided Written Education Teaching Methods: Verbal, Printed Topics: Dysphagia, Aphasia Patient Response: Verbalized Understanding Goal Formulation: With Patient Clinical Swallow Goals* Goal : Pt will tolerate full liquid diet with thin liquids with <5% s/s of aspiration and without negative pulmonary changes. Goal : Pt will participate in ongoing swallow trials ([facility] soft, regular) for purpose of diet advancement. Goal : Pt will follow one and two step commands with 75% accuracy, provided repetition/cues. Goal : Pt will demonstrate reading comprehension at sentence level with 75% accuracy. Goal : Pt will repeat short, simple sentences with 75% accuracy and reduced paraphasias. Goal : Pt will participate in trials of melodic intonation therapy to improve spontaneous speech provided mod cues. Therapist:Margie Hidalgo/CCC-ORIENTATION AND MOBILITY SPECIALIST (Pager [phone]; Voalte: [phone]) Date:03/09/2018 ANALYST * Sindy Colorado RN ([place]) - 03/09/2018 7:15 AM RATE ANALYST Care assumed by this RN. Bedside safety checks completed with night RN. Initial patient assessment completed, refer to flowsheet for details. Admission skin assessment completed by this RN and ANGEL Lowe Pressure Injury Present on Hospital Admission (within 24 hours): No 1. Occiput: No 2. Ear: No 3. Scapula: No 4. Spinous Process: No 5. Shoulder: No 6. Elbow: No 7. Iliac Crest: No 8. Sacrum/Coccyx: No 9. Ischial Tuberosity: No 10. Trochanter: No 11. Knee: No 12. Malleolus: No 13. Heel: No 14. Toes: No 15. Assessed for device associated injury Yes 16. Nursing Nutrition Assessment Completed Yes See flowsheet for assessment details. NEICU team and cardiology at bedside. Orders implemented and medications administered as necessary. Will continue to monitor. ANALYST in this encounter H&P Notes * Sharita Delmar M, STRING WINDING MACHINE OPERATOR - 03/09/2018 3:39 AM RATE ANALYST Neuro Critical Care History and Physical Adeline Garcia Admission Date: 03/09/2018 LOS: 0 days Full Code ASSESSMENT/PLAN Patient Active Problem List Diagnosis Date Noted Stroke (cerebrum) (HCC) 03/09/2018 Adeline Garcia is a 78 y.o. female with history of CAD, HTN, CKD who had acute onset of right sided weakness and neglect at 2230 on 03/08. Initial NIHSS [address] head negative for bleed. Per Stroke Neurology OSH instructed to give tPA as patient was just at the 4hour cooper from [facility] [place]. There is concern for NSTEMI with troponin 1.[address] elevation in V2 per OSH. Pt was flown to [facility] for further evaluation and treatment Hospital and ICU course: 03/09 admitted to [facility] Neuro: left MCA stroke Stroke Symptom Onset time: TPA given at: 0257 Initial NIH: 12 NIH post TPA: 8 IR: No Follow up Imaging: MRI- cannot get due to Pacemaker Ischemic Stroke Risk Factors Risk factor Present? Target Patient at target? Comments 1. Hypertension Yes BP ,160 Yes 2. Diabetes No HBA1C<7 Pending 3. Dyslipidemia Yes LDL<70? Pending 4. H/o stroke/TIA No 5. Atrial fibrillation No If yes, anticoag? N/A If no anticoagulation, why not? 6. 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 yes - if yes, ORIENTATION AND MOBILITY SPECIALIST cognitive evaluation ordered? Yes Rehabilitation medicine team consulted: Yes VTE prophylaxis: Mechanical prophylaxis; Sequential compression device - Neuro-ICU monitoring, neurochecks q 1 hrs Pain Management: - Tylenol PRN - Assess for delirium daily Cardiac: CAD, HLD, HTN, CABG, Perm Pacemaker - SBP goal: <160 - MAP goal > 65 R/O NSTEMI Troponin 1.5 @OSH - Trend Q6 last 0.78 - ECG with NSR Cardiology consulted appreciate recs 03/09 Echo: The LV is mildly dilated. The estimated LV ejection fraction is 35% . No LV mural thrombus appears to be present.Left atrium is moderately enlarged.Mild mitral regurgitation is present. Mild tricuspid regurgitation is noted. The estimated PA systolic pressures 45- 50 mmHg. Patient had not been taking meds over the past several months. Will restart coreg at 6.25mg BID Respiratory: on room air Spo2 goal >95%, GI: Feeding: cleared by speech therapy for full liquid diet bowel regimen, ensure daily BM Heme: daily CBC - assess for coagulopathy, maintain platelets above 100k, INR <1.5 ID: - Tmax 36.5 -WBC 6.6 - aim for normothermia, Temp <38.3 celsius, normothermia protocol if febrile Renal: Kidney Disease - voiding- bladder scan PRN - G[employer] MET[employer]ER BUN/Creat 05/04. - BUN/Creat on arrival 03/04. - UA unremarkable - Daily BMP - Aim for normovolemia Endocrine: - BG on chemistry 146 - continue to trend daily - Blood glucose goal 100-180mg/dl FEN: - IVF: - Magnesium goal >2.0, i-Gigi goal > 1.0, Potassium goal >4.0 mEq/L Prophylaxis Review: A)GI: none B) Lines: No C) Urinary Catheter: No D) Antibiotic Usage: No E) VTE: Mechanical prophylaxis; Sequential compression device F) Isolation: none G)Seizures: none I) Restraints: Patient assessed for need for restraints. Disposition/Family: Admit to [facility] Primary service: NCC Consults: Cardiology and Stroke Neurology SUBJECTIVE Chief Complaint: Right sided weakness, neglect and confusion History of Present Illness: Adeline Garcia is a 78 y.o. female with a history of CAD , HTN, Chronic renal disease, who awoke her family early this AM after developing right sided weakness and Aphasia. The patient is currently experiencing expressive aphasia, and history was obtained from notes, and nursing report. Attempted to reach patient's son Gautam with whom she lives. EMS was called to her home in [facility], and she was taken to the local hospital. She was stroke activated, and TPA was administered at 0257. In the process of her work up, she was found to have EKG findings concerning for a NSTEMI and and elevated troponin of 1.15. She was transferred to [facility] for further cardiac and stroke care. Shortly after arrival here, she underwent a CTA /P which revealed findings suggestive of a left MCA stroke. 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 Past Medical History: Diagnosis Date Chronic kidney disease Heart disease HLD (hyperlipidemia) Noncompliance with medications Secondary hypothyroidism Spinal stenosis No past surgical history on file. unable to obtain due to expressive aphasia Social History Social History Narrative Not on file Social History Retired. lives with son Gautam Code Status: Full Code and Conversation Only; No decision made at this time. Decision Maker: Gautam Garcia Immunizations (includes history and patient reported): There is no immunization history on file for this patient. Allergies: Patient has no known allergies. Medications Prior to Admission Medication Sig aspirin EC 81 mg tablet Take 81 mg by mouth daily. Take with food. atorvastatin (LIPITOR) 40 mg tablet Take 1 tablet by mouth at bedtime daily. carvedilol (COREG) 25 mg tablet Take 25 mg by mouth twice daily with meals. Take with food. citalopram (CELEXA) 20 mg tablet Take 20 mg by mouth every morning. clopiDOGrel (PLAVIX) 75 mg tablet Take 75 mg by mouth every morning. ezetimibe (ZETIA) 10 mg tablet Take 10 mg by mouth every morning. famotidine (PEPCID) 20 mg tablet Take 20 mg by mouth twice daily. lisinopril (PRINIVIL; ZESTRIL) 5 mg tablet Take 1 tablet by mouth every morning. Review of Systems: A 14 point review of systems was negative except for: Neurological: positive for speech problems OBJECTIVE Vital Signs: Last Filed Vital Signs: 24 Hour Range BP: 143/88 (03/09 900) Temp: 36.4 C (97.5 F) (03/09 0715) Pulse: 93 (03/09 900) Respirations: 23 PER MINUTE (03/09 900) SpO2: 98 % (03/09 900) O2 Delivery: None (Room Air) (03/09 900) BP: (143-171)/(87-120) Temp: [36.4 C (97.5 F)] Pulse: [90-121] Respirations: [16 PER MINUTE-25 PER MINUTE] SpO2: [96 %-99 %] O2 Delivery: None (Room Air) Intensity Pain Scale (Self Report): (not recorded) There were no vitals filed for this visit. Artificial airway: None Ventilator/ Respiratory Therapy: No Vent weaning trial: Not applicable Lines: Peripheral Line Drains: None Critical Care Vitals: ICP Monitoring: Hemodynamics/Oxycalcs: Intake/Output Summary: (Last 24 hours) No intake or output data in the 24 hours ending 03/09/18921 Physical Exam: Blood pressure 143/88, pulse 93, temperature 36.4 C (97.5 F), SpO2 98 %. Lucia coma score: E: 4 - Opens eyes on own M: 6 - Follows simple motor commands V: 4 - Seems confused, disoriented Neuro: Mental Status: alert, cooperative no acute distress Cranial Nerves: Cranial nerves 2-12 INTACT unless otherwise listed below. - Pupil exam: Size: 3 Reactivity: brisk - EOM: intact -slight facial droop -dysarthria Motor: RUE: Strength: 5/5 RLE: Strength: 5/5 LUE: Strength: 5/5 ataxia finger/nose LLE: Strength: 5/5 Sensory: mild distal sensory loss Coordination: ataxia left upper extremity finger to nose DTRs: deferred Gait: deferred Lungs: clear to auscultation bilaterally Pulmonary: Respiratory status: Stable Heart: regular rate and rhythm Abdomen: soft, non-tender. Bowel sounds normal. No masses, no organomegaly Extremities: extremities normal, atraumatic, no cyanosis or edema Skin: Skin color, texture, turgor normal. No rashes or lesions Point of Care Testing: (Last 24 hours): Glucose: (!) 146 (03/09/18 0700) Lab Review: Pertinent labs and imaging personally reviewed Radiology and Other Diagnostic Procedures Review: Pertinent radiologic and diagnostic procedures reviewed. I spent 60 minutes managing the care of this patient. Mrs Garcia is critically ill. Cares included: detailed neurologic and systems exam, medication review, laboratory data review and interpretation, electrolyte management, review of available imaging, DVT/PE prophylaxis review, diet review, activity review, and coordination of care with consulted teams. Malachi BONILLA Date: 03/09/[phone] ANALYST in this encounter Consult Notes * Renny Sparks MD - 03/09/2018 10:27 AM RATE ANALYST Associated Order(s): CONSULT REHABILITATION MEDICINE PHYSICIAN Physical Medicine & Rehabilitation Consult Note Date of Service: 03/09/2018 Adeline Garcia is a 78 y.o. female. : 1940 Primary Insurance: MEDICARE Financial Class: Medicare Date of Admission: 03/09/2018 Referring Physician: Mallory Walker MD Reason for Consult: evaluate for Post-Acute Rehab/Placement Precautions: Fall Active Problems L MCA ischemic stroke Acute PA Aphasia Left gaze preference R neglect Impaired mobility and ADLs CKD HLD T2DM HTN Assessment & Plan Adeline Garcia is a 78 y.o. female admitted to [facility] on 03/09/2018 with the following issues: L MCA ischemic stroke Impairments: aphasia, communication deficits and neglect Activity Limitations: grooming, dressing - lower, toileting, ambulation, stairs and expression Participation Restrictions: unable to return home safely Post-acute care rehabilitation needs: acute inpatient rehabilitation -Patient with clear medical complexity and goals in at least 2 therapy disciplines (PT/OT/ORIENTATION AND MOBILITY SPECIALIST) appropriate for acute inpatient rehabilitation. Goals & Barriers Family / Patient Goals: return home with family supervision Mobility Goals: Overall goal is Stand by assistance Activities of Daily Living (ADLs) Goals: Overall goal is Stand by assistance Cognition / Communication Goals: Speech therapy will evaluate and treat cognition and communication deficits and assess for safe swallow Barriers: Poor family/social support Facilitators: improving medical condition Rehabilitation Prognosis: Good Tolerance for three hours of therapy a day: Alex Sparks MD Rehab Consult Pager: [phone] History of Present Illness CC: R sided weakness, aphasia Hospital Course: Ms. Garcia is a 78 year old female with a PMH of CKD, HLD, T2DM , HTN presented to OSH on 03/08 evening for R sided weakness, aphasia, L gaze. CT negative for bleed at that time and the patient was given tPA. She was transferred to on 03/09. CTA/CTP on admission showed completed L MCA infarct and distal L MCA thrombus. Also on admission, her troponin was 1.[address] elevation, so cardiology was consulted. Bedside echo by cardiology with reported moderately reduced LVEF of 40-45% with septal akinesis/ dyskinesis with hypokinesis of other segments. She has device leads in the right ventricle. There is no evidence of pericardial effusion. No prior ECHO available for comparison. Per cardiology recs, no cardiac cath lab radiology technologist at this time, monitor on tele, trend trops, get formal echo, continue antiplatelets and coreg , start statin. MRI and labs pending. PT and OT have been consulted to address functional and mobility deficits, rehab is now consulted for post-acute rehab/placement recommendations. Past Medical History Past Medical History: Diagnosis Date Chronic kidney disease Heart disease HLD (hyperlipidemia) Noncompliance with medications Secondary hypothyroidism Spinal stenosis Past Surgical History No past surgical history on file., unable to ask patient about PSH Family\\Social History Social History Socioeconomic History Marital status: Not on file Spouse name: Not on file Number of children: Not on file Years of education: Not on file Highest education level: Not on file Occupational History Not on file Tobacco Use Smoking status: Not on file Substance and Sexual Activity Alcohol use: Not on file Drug use: Not on file Sexual activity: Not on file Other Topics Concern Not on file Social History Narrative Not on file FH - unable to get FH due to patient's aphasia Medications: magnesium sulfate 1 g/D5W 100 mL IVPB 1 g Intravenous Q1H X 4DO PRN Medications: diphenhydrAMINE Once PRN AND famotidine Once PRN, EPINEPHrine PF Q5 MIN PRN , EPINEPHrine racemic PRN, labetalol (NORMODYNE; TRANDATE) injection PRN, methylPREDNISolone (SOLU-MEDROL) IV Once PRN Allergies: No Known Allergies Prior Level of Function Self-Care/ADLs: unknown Mobility: unknown Home Environment: Comments: Pt unable to report history. (03/09/2018 11:00 AM) Support System: unknown Current Level of Function PT Gait:Gait Distance: 150 feet Gait: Assistance Level: Minimal Assist Gait: Assistive Device: None Bed Mobility/Transfers Bed Mobility: Supine to Sit: Minimal Assist, Head of Bed Elevated, No Rail Transfer Type: Sit to/from Stand Transfer: Assistance Level: To/From, Bed, Bed Side Chair, Standby Assist( minimal assist to get back into tall bed) Transfer: Assistive Device: None Transfers: Type Of Assistance: For Safety Considerations, Verbal Cues End Of Activity Status: Up in Chair, Nursing Notified, Instructed Patient to Request Assist with Mobility, Instructed Patient to Use Call Light(pads alarm activated) OT ADL's Where Assessed: Standing at Sink, In Bathroom, Edge of Bed Grooming Assist: Moderate Assist Grooming Deficits: Wash/Dry Hands, Teeth Care, Brushing Hair(Hand over hand assist to initiate and transition between tas) LE Dressing Assist: Moderate Assist LE Dressing Deficits: Don/Doff R Sock(Pt donned L sock, assist to get over all toes and heel on R) Toileting Assist: Minimal Assist Toileting Deficits: Steadying, Perineal Hygiene Functional Transfer Assist: Minimal Assist Functional Transfer Deficits: Toilet Transfer(Room mobility without assistive device) Comment: Patient ambulated into bathroom for ADLs, then in hallway. Patient seated in chair at end of session, TABS alarm on, ORIENTATION AND MOBILITY SPECIALIST COGNITIVE EVALUATION SUMMARY PRAGMATICS: BEHAVIOR: AUDITORY COMPREHENSION: ORIENTATION: AUDITORY ATTENTION/WORKING MEMORY: AUDITORY MEMORY/SUSTAINED ATTENTION: NEW LEARNING: SEQUENCING/ORGANIZATION: PROBLEM SOLVING: REASONING: MATH/MONEY SKILLS: VISUAL PERCEPTUAL: SWALLOW EVALUATION SUMMARY Summary: Clinical swallow and brief language evaluations completed today. Pt exhibits mild oral dysphagia, characterized by difficulty with mastication and prolonged oral phase. Pt exhibits no s/s of aspiration with solids or liquids this date. Pt exhibits moderate expressive/receptive aphasia. Pt is able to follow one-step commands fairly consistently, but has increased difficulty with two step. Repetition impaired. Pt having difficulty producing spontaneous speech ; however, language abilities improved within automatic speech tasks, naming, and sentence completion. Simple reading/writing abilities appear intact. Please see below for details/recommendations. Oral Stage Summary*: Oral stage of swallow mildly impaired. Normal withdraw and formation. Mastication and transfer noted to be prolonged , especialy with mechanical soft solids. Do not anticipate problematic or abnormal premature spillage. Pharyngeal Stage Summary*: Pharyngeal stage of swallow judged to be WFL . Swallow initiation timely with sufficient laryngeal elevation, as judged via laryngeal palpation. No s/s of aspiration with thin liquids (single or consecutive drinks) by straw x7-10, pureed solids x5, or [facility] soft solids x2 Swallow Recommendations* PO: Full Liquid, Thin Liquids Swallow Strategies: Small Bites/Sips, Slow Rate of Intake, Supervision During Meals Plan: Continue Treatment __x/week (Comment)., Patient Would Benefit from Further Speech Therapy Post Acute Hospitalization.(3-5) Prognosis: Fair Review of Systems Review of systems not obtained from patient due to patient factors. Physical Exam BP: 131/101 (03/09 1230) Temp: 36.5 C (97.7 F) (03/09 1200) Pulse: 93 (03/09 1230) Respirations: 13 PER MINUTE (03/09 1230) SpO2: 98 % (03/09 1230) O2 Delivery: None (Room Air) (03/09 1230) SpO2 Pulse: 94 (03/09 1230) Height: 147.3 cm (58") (03/09 1131) Body mass index is 25.66 kg/m. GEN: laying in bed, no acute distress HEAD: normocephalic, atraumatic EYES: sclera anicteric, conjunctiva not injected CV: limbs warm and well perfused RESP: respirations easy and regular ABD: non-distended EXT: no edema or erythema in bilateral lower limbs SKIN: no obvious rashes or lesions on exposed surfaces NEURO: Mental Status: alert Cognition: follows commands with multiple cues Speech: nonfluent, comprehension mostly intact, repetition intact. Dysarthric Cranial Nerves: II-XII grossly intact Tone/ Reflexes: no increased tone appreciated, Tatum's negative, clonus negative Sensation: sensation intact to light touch in all extremities MS: Root Right Left Shoulder Abduction C5 5 5 Elbow Flexion C5 5 5 Elbow Extension C7 5 5 Wrist Extension C6 5 5 Finger Flexion C8 5 5 Finger Abduction T1 5 5 Hip Flexion L2 5 5 Knee Extension L3 5 5 Dorsiflexion L4 5 5 Plantarflexion S1 5 5 Intake/Output Summary: Intake/Output Summary (Last 24 hours) at 03/09/2018 1238 Last data filed at 03/09/2018 1200 Gross per 24 hour Intake 400 ml Output 1150 ml Net -750 ml Basic Metabolic Profile Lab Results Component Value Date/Time NA 136 (L) 03/09/2018 07:00 AM K 4.0 03/09/2018 07:00 AM CA 9.2 03/09/2018 07:00 AM CL 104 03/09/2018 07:00 AM CO2 23 03/09/2018 07:00 AM Lab Results Component Value Date/Time BUN 25 03/09/2018 07:00 AM CR 1.17 (H) 03/09/2018 07:00 AM GLU 146 (H) 03/09/2018 07:00 AM CBC w diff Lab Results Component Value Date/Time WBC 6.6 03/09/2018 07:00 AM RBC 4.46 03/09/2018 07:00 AM HGB 13.2 03/09/2018 07:00 AM HCT 39.7 03/09/2018 07:00 AM MCV 88.9 03/09/2018 07:00 AM MCH 29.5 03/09/2018 07:00 AM RDW 13.8 03/09/2018 07:00 AM PLTCT 157 03/09/2018 07:00 AM MPV 9.3 03/09/2018 07:00 AM Lab Results Component Value Date/Time NEUT 76 03/09/2018 07:00 AM ANC 5.00 03/09/2018 07:00 AM LYMA 17 (L) 03/09/2018 07:00 AM ALC 1.10 03/09/2018 07:00 AM CR 7 03/09/2018 07:00 AM AMC 0.40 03/09/2018 07:00 AM EOSA 0 03/09/2018 07:00 AM AEC 0.00 03/09/2018 07:00 AM BASA 0 03/09/2018 07:00 AM ABC 0.00 03/09/2018 07:00 AM Radiology: CTA h/n, CTP 03/09 CTA head: 1. Acute left MCA distribution [...] MCA distribution infarct. No mismatch perfusion defect. ANALYST Associated attestation - Sourav Watts MD - 03/09/2018 4:12 PM RATE ANALYST Rehabilitation Medicine Attending Physician Attestation: I personally performed mcgill portions of the history and exam. I discussed the case with the resident and agree with the resident's documentation of history, physical assessment and treatment plan unless otherwise noted. Thank you for allowing us to participate in the care of this patient. Sourav Watts MD 03/09/2018 4:12 PM Attending physician * Mg Barton MD - 03/09/2018 8:22 AM RATE ANALYST Associated Order(s): CONSULT CARDIOLOGY PHYSICIAN CARDIOLOGY CONSULT NOTE ATT: I have discussed with fellow and will follow and agree with managment and plan as outlined below. Reason for Consult: Trop elevation and V2 ST elevation History of Present Illness Adeline Garcia is a 78 y.o. female with PMH sig for HTN, CKD, ?CABG, ?PCI, ?ICM s/p ICD, who was admitted 03/09/2018 for acute stroke. Pt was last known well around 2200 yesterday. She presented to [facility] with right sided weakness, aphasia, right denise neglect. She was also noted to have 1.5 mm ATA in V2 without any other lead involvement and without reciprocal changes. Her trop was 1.1 at OSH. She apparently was chest pain free. She received a full dose ASA. OSH spoke to neurology after which she received a full dose tPA at 257 AM today. She was transferred for further care. Patient underwent CT perfusion scan here after arrival around 7AM which confirmed a left MCA distribution stroke. Pt's NIHSS has improved from 12 to 7 post tPA. Repeat EKG shows same ATA in V2 without other changes suggestive of a STEMI. I performed a bedside ECHO which showed moderately reduced LVEF of 40-45% with septal akinesis/dyskinesis with hypokinesis of other segments. She has device leads in the right ventricle. There is no evidence of pericardial effusion. Currently patient is chest pain free. ECG: septal Q waves and ATA in V2. No dynamic ECG changes compared to the ECG from OSH. No other prior ECGs available.. Telemetry: NSR Echocardiogram: Limited bedside ECHO performed and interpreted by me: Moderately reduced LVEF of 40-45% with septal akinesis/dyskinesis with hypokinesis of other segments. She has device leads in the right ventricle. There is no evidence of pericardial effusion. No prior ECHO available for comparison. Chest X-Ray: pending Most recent stress test performed None available Most recent left heart catheterization performed None available Telemetry findings Assessment & Recs Adeline Garcia is a 78 y.o. patient with the following problems: Active Problems: Stroke (cerebrum) (HCC) # Acute Left MCA distribution stroke s/p tPA # Myocardial injury - Mild trop elevation of 1.1 at OSH. V2 ATA but no other features suggestive of STEMI - Pt is chest pain free. No other cardiac symptoms - VS stable - Bedside ECHO as above - Pt is s/p full dose ASA. She is also on plavix at home # ?CAD s/p CABG # ?ICM s/p ICD # HTN # CKD Recommendations - Will hold off activating cardiac cath lab radiology technologist as she doesn't meet STEMI criteria for now - Monitor on tele - Continue to trend trops - Obtain formal 2D ECHO w doppler - Hold off heparin in the setting of acute stroke s/p tPA - Continue with antiplatelets if okay from neuro standpoint - Continue home coreg. Please start on high intensity statin - Please obtain cardiac records - AM team to follow the patient. Thank you for allowing us to participate in the care of this patient. Discussed with Dr. Barton who agrees with plan above. After 5PM please call bulb planter media reconciliation specialist. Friday - Friday 8AM-5PM please call Cardiology consult pager ASHWINI Holcomb CV Fellow Pager: [phone] Home Medications Medications Prior to Admission Medication Sig aspirin EC 81 mg tablet Take 81 mg by mouth daily. Take with food. atorvastatin calcium (ATORVASTATIN PO) Take by mouth. carvedilol (COREG) 25 mg tablet Take 25 mg by mouth twice daily with meals. Take with food. clopiDOGrel (PLAVIX) 75 mg tablet Take 75 mg by mouth daily. ezetimibe (ZETIA) 10 mg tablet Take 10 mg by mouth daily. famotidine (PEPCID) 20 mg tablet Take 20 mg by mouth twice daily. LISINOPRIL PO Take by mouth. Current Medications Scheduled Meds: magnesium sulfate 1 g/D5W 100 mL IVPB 1 g Intravenous Q1H X 4DO Continuous Infusions: PRN and Respiratory Meds:diphenhydrAMINE Once PRN AND famotidine Once PRN, EPINEPHrine PF Q5 MIN PRN, EPINEPHrine racemic PRN, labetalol (NORMODYNE; TRANDATE) injection PRN, methylPREDNISolone (SOLU-MEDROL) IV Once PRN Allergies No Known Allergies Past Medical History No past medical history on file. Past Surgical History No past surgical history on file. Social History Social History Socioeconomic History Marital status: Not on file Spouse name: Not on file Number of children: Not on file Years of education: Not on file Highest education level: Not on file Social Needs Financial resource strain: Not on file Food insecurity - worry: Not on file Food insecurity - inability: Not on file Transportation needs - medical: Not on file Transportation needs - non-medical: Not on file Occupational History Not on file Tobacco Use Smoking status: Not on file Substance and Sexual Activity Alcohol use: Not on file Drug use: Not on file Sexual activity: Not on file Other Topics Concern Not on file Social History Narrative Not on file Family History No family history on file. Review of Systems Unable to obtain due to stroke Vital Signs: Most Recent Vital Signs: 24 Hour Range BP: 167/106 (03/09 0700) Pulse: 114 (03/09 0700) Respirations: 23 PER MINUTE (03/09 700) SpO2: 97 % (03/09 700) O2 Delivery: None (Room Air) (03/09 700) SpO2 Pulse: 115 (03/09 700) BP: (167)/(106) Pulse: [114] Respirations: [23 PER MINUTE] SpO2: [97 %] O2 Delivery: None (Room Air) There were no vitals filed for this visit. No intake or output data in the 24 hours ending 03/09/18 0823 Physical Exam General Appearance: resting comfortably, no acute distress Neck Veins: neck veins are flat Chest Inspection: median sternotomy wound in place. Cardiac device in place in the left pectoral area Respiratory Effort: breathing is unlabored, no respiratory distress Auscultation/Percussion: lungs clear to auscultation, no rales, rhonchi, or wheezing Cardiac Rhythm: regular rhythm and regular rate Cardiac Auscultation: Normal S1 & S2, no S3 or S4, no rub Murmurs: faint early systolic murmur heard during expiration in the LUSB Lower Extremity Edema: trace edema Abdominal Exam: soft, non-tender, no masses, bowel sounds normal Neuro: Right denise neglect. Word finding difficulty Lab/Radiology/Other Diagnostic Tests: 24-hour labs: Results for orders placed or performed during the hospital encounter of (from the past 24 hour(s)) LIPID PROFILE Collection Time: 03/09/18 7:00 AM Result Value Ref Range Cholesterol 217 (H) <200 MG/DL Triglycerides 138 <150 MG/DL HDL 37 (L) >40 MG/DL LDL 165 (H) <100 MG/DL VLDL 28 MG/DL Non HDL Cholesterol 180 MG/DL CBC AND DIFF Collection Time: 03/09/18 7:00 AM Result Value Ref Range White Blood Cells 6.6 4.5 - 11.0 K/UL RBC 4.46 4.0 - 5.0 M/UL Hemoglobin 13.2 12.0 - 15.0 GM/DL Hematocrit 39.7 36 - 45 % MCV 88.9 80 - 100 FL MCH 29.5 26 - 34 PG MCHC 33.2 32.0 - 36.0 G/DL RDW 13.8 11 - 15 % Platelet Count 157 150 - 400 K/UL MPV 9.3 7 - 11 FL Neutrophils 76 41 - 77 % Lymphocytes 17 (L) 24 - 44 % Monocytes 7 4 - 12 % Eosinophils 0 0 - 5 % Basophils 0 0 - 2 % Absolute Neutrophil Count 5.00 1.8 - 7.0 K/UL Absolute Lymph Count 1.10 1.0 - 4.8 K/UL Absolute Monocyte Count 0.40 0 - 0.80 K/UL Absolute Eosinophil Count 0.00 0 - 0.45 K/UL Absolute Basophil Count 0.00 0 - 0.20 K/UL PROTIME INR (PT) Collection Time: 03/09/18 7:00 AM Result Value Ref Range INR 1.0 0.8 - 1.2 PTT (APTT) Collection Time: 03/09/18 7:00 AM Result Value Ref Range APTT 25.0 24.0 - 36.5 SEC BASIC METABOLIC PANEL Collection Time: 03/09/18 7:00 AM Result Value Ref Range Sodium 136 (L) 137 - 147 MMOL/L Potassium 4.0 3.5 - 5.1 MMOL/L Chloride 104 98 - 110 MMOL/L CO2 23 21 - 30 MMOL/L Anion Gap 9 3 - 12 Glucose 146 (H) 70 - 100 MG/DL Blood Urea Nitrogen 25 7 - 25 MG/DL Creatinine 1.17 (H) 0.4 - 1.00 MG/DL Calcium 9.2 8.5 - 10.6 MG/DL eGFR Non 45 (L) >60 mL/min eGFR 54 (L) >60 mL/min MAGNESIUM Collection Time: 03/09/18 7:00 AM Result Value Ref Range Magnesium 1.4 (L) 1.6 - 2.6 mg/dL PHOSPHORUS Collection Time: 03/09/18 7:00 AM Result Value Ref Range Phosphorus 3.7 2.0 - 4.5 MG/DL Glucose: (!) 146 (03/09/18 0700) ANALYST in this encounter Miscellaneous Notes * Case Mgmt DC Plan - Antonia Sterling - 03/11/2018 2:10 PM RATE ANALYST RADIATION MONITOR Note: Faxed over discharge orders to [facility] per the request of PADMINI Kohler. Antonia Sterling Signal Integrity Engineer For additional assistance, please contact PADMINI Kohler [phone]. ANALYST * Case Mgmt DC Plan - Antonia Sterling - 03/11/2018 10:39 AM RATE ANALYST RADIATION MONITOR Note: Requested by: PADMINI Kohler [employer] [facility] transporting patient to [facility] with [employer] paying. railroad car repair supervisor time: 1:30p.m. This marketing copywriter printed and placed transfer packet in pt's chart drawer. Antonia Sterling Signal Integrity Engineer For additional assistance, please contact PADMINI Kohler [phone] ANALYST * Case Mgmt DC Plan - Antonia Sterling - 03/11/2018 9:20 AM RATE ANALYST RADIATION MONITOR Note Received request from PADMINI Kohler to assist with transportation coordination. This marketing copywriter obtained multiple transportation companies and obtained quotes for wheelchair van transportation from [facility] to [address] [place] [address]. [facility] - $450.00 [facility] Belt Loop Maker - $378.50 [employer] - $350.00 Updated PADMINI. Antonia Sterling Case Management Assitant For additional assistance, please contact [facility] Nohemi Kohler [phone]. ANALYST * Case Mgmt DC Plan - Nohemi Kohler - 03/11/2018 8:53 AM RATE ANALYST Case Management Progress NoteNAME:Adeline Garcia :1940 AGE: 78 y.o. ADMISSION DATE: 03/09/2018 DAYS ADMITTED: LOS: 2 days Todays Date: 03/11/2018 Plan D/c to [facility] today at 1:30pm via [employer] w/c van. Interventions SW reviewed EMR and met with Neuro team for huddle. ? Support Support: Pt/Family Updates re:POC or DC Plan, Counseling for Adaptation to Illness, Counseling for Psychosocial issues See below ? Info or Referral ? Discharge Planning Discharge Planning: Inpatient Rehabilitation JAMES spoke with Jojo ([phone]) at [facility] and they are agreeable to admission. SW educated that she will follow up on d/c timeline once established. SW sent updated clinicals to [facility]. SW tasked RADIATION MONITOR to [employer] check w/c van to [facility]. Update 9:30am: JAMES spoke with Neuro Team and pt stable for d/c today. SW visited pt at bedside to update. Pt agreeable to DCP and agreeable with d/c today around 1:00pm. Pt educated that she is unable to privately pay for transportation and her son is unable to assist. SW made 2 attempts to reach pt' s son Gautam while at bedside to update, however no answer. SW left message inviting return call. JAMES spoke with Leadership and they are agreeable to covering transport cost. SW tasked RADIATION MONITOR to arrange w/c van to [facility]. SW tasked RADIATION MONITOR to deliver transfer packet. JAMES spoke with Neuro Team to update. JAMES spoke with bedside RN to update. JAMES spoke with Allegra at [facility] to confirm DCP. RN Report: [phone] JAMES faxed d/c orders to [facility] at [phone]. ? Medication Needs ? Financial ? Legal ? Other Other/None: No needs identified Disposition ? Expected Discharge Date Expected Discharge Date: 03/12/18 ? Transportation Does the patient need discharge transport arranged?: Yes Transportation Name, Phone and Availability #1: facility transportation Does the patient use Medicaid Transportation?: No ? Next Level of Care (Acute Psych discharges only) ? Discharge Disposition Durable Medical Equipment No service has been selected for the patient. Destination No service has been selected for the patient. Home Care No service has been selected for the patient. Dialysis/Infusion No service has been selected for the patient. Nohemi Kohler LMSW Phone: [phone] Pager: [phone] ANALYST * Transfer - Tika Aldana APRN-ELECTRIC MOTOR ASSEMBLER AND TESTER - 03/10/2018 1:01 PM RATE ANALYST In-Hospital Transfer Note Admission Diagnosis: Left MCA Stroke Admission Date: 03/09/2018 Active Hospital Problem List: Active Problems: Stroke (cerebrum) (HCC) Hyperglycemia Renovascular hypertension Expressive aphasia HLD (hyperlipidemia) Chronic kidney disease Hospital Course: Adeline Garcia is a 78 y.o. female with history of DM, CAD, PPM in situ, HTN, CKD who presented to an OSH with acute onset of right sided weakness and neglect at 2230 on 03/08, Initial NIHSS 12. CT head was negative for bleed and full dose ASA and tPA was given. There was concern for STEMI with troponin 1.[address] elevation in V2 per OSH. Pt was transferred to [facility] for further evaluation and treatment. CTA/P on arrival confirmed a left completed MCA stroke with with distal thrombus and was not an IR candidate. NIHSS improved to 7 post tPA. Repeat EKG with same ATA in V2. Cardiology was consulted. She was not a candidate for cardiac cath lab radiology technologist, so troponin was trended with monitoring. Echo noted reduced EF 35% with left atria enlargement. She was continued on low dose Coreg and Lisinopril. Aspirin, plavix and atorvastatin was started for secondary stroke prevention. Unable to perform MRI due to PPM, but [address] was stable with small area of hemorrhagic conversion. PT/OT/ST and rehab medicine were consulted. 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 ADMISSION DATE: 03/09/2018 DAYS ADMITTED: LOS: 0 days Todays Date: 03/09/2018 Plan Anticipate d/c to [facility] end of this week pending pt stability and facility acceptance. Interventions SW reviewed EMR and met with Neuro team. ? Support Support: Pt/Family Updates re:POC or DC Plan, Counseling for Adaptation to Illness, Counseling for Psychosocial issues SW visited pt at bedside to discuss DCP. SW educated on IPR level of care and benefit. SW provided list of options. Pt endorsing interest in [facility]. Pt denied concerns at this time. JAMES spoke with pt's son Gautam ([phone]) to discuss DCP. JAMES educated on IPR level of care and benefit. SW provided list of options. Gautam endorsing interest in [facility], as this is closer to home. However, Gautam indicated that should pt require much assistance upon d/c he likely would be unable to assist. Gautam expressing potential interest in LTC placement if necessary. ? Info or Referral ? Discharge Planning Discharge Planning: Inpatient Rehabilitation SW sent referral to [facility]. ? Medication Needs ? Financial ? Legal ? Other Other/None: No needs identified Disposition ? Expected Discharge Date Expected Discharge Date: 03/12/18 ? Transportation Does the patient need discharge transport arranged?: Yes Transportation Name, Phone and Availability #1: facility transportation Does the patient use Medicaid Transportation?: No ? Next Level of Care (Acute Psych discharges only) ? Discharge Disposition Durable Medical Equipment No service has been selected for the patient. Destination No service has been selected for the patient. Home Care No service has been selected for the patient. Dialysis/Infusion No service has been selected for the patient. Nohemi Kohler LMSW Phone: [phone] Pager: [phone] ANALYST * Case Mgmt DC Plan - Nohemi Kohler - 03/09/2018 1:52 PM RATE ANALYST Case Management Admission AssessmentNAME:Adeline Garcia :1940 AGE: 78 y.o. ADMISSION DATE: 03/09/2018 DAYS ADMITTED: LOS: 0 days Todays Date: 03/09/2018 Source of Information: SW visited pt at bedside to completion assessment. Pt with aphasia, however was able to provide a majority of information. However, SW confirmed assessment information with pt's son Gautam ([phone]). Plan Plan: Case Management Assessment, Discharge Planning for Facility Anticipated, Assist PRN with SW/NC Services Patient Address/Phone [address] There are no phone numbers on file. Emergency Contact Extended Emergency Contact Information Primary Emergency Contact: Gautam Garcia Mobile Relation: Son Healthcare Directive None Transportation Does the patient need discharge transport arranged?: Yes Transportation Name, Phone and Availability #1: facility transportation Does the patient use Medicaid Transportation?: No Expected Discharge Date Expected Discharge Date: 03/12/18 Living Situation Prior to Admission ? Living Arrangements Type of Residence: Home, independent Living Arrangements: Children(Pt lives with her adult son Gautam. ) Bathroom Shower / Tub: Tub/Shower Unit How many levels in the residence?: 1 Can patient live on one level if needed?: N/A Does residence have entry and/or side stairs?: Yes(1) Assistance needed prior to admit or anticipated on discharge: Yes Who provides assistance or could if needed?: Pt's son Gautam reports that he likely is unable to provide much assistance upon d/c. Are they in good health?: Unknown(Gautam expresed that he has "multiple disorders.") Can support system provide 24/7 care if needed?: Maybe ? Level of Function Prior level of function: Independent(Prior to admission, pt was independent with ADLs. ) ? Cognitive Abilities Cognitive Abilities: Alert and Oriented, Appears to have language limitations ( specify)(Pt with word finding difficulty. ) Financial Resources ? Coverage Primary Insurance: Medicare Secondary Insurance: Medicaid([place] Medicaid) Additional Coverage: RX(fills at [employer] in [place]) ? Source of Income Source Of Income: SSI ? Financial Assistance Needed? None Psychosocial Needs ? Mental Health Mental Health History: No ? Substance Use History Substance Use History Screen: No ? Other None Current/Previous Services ? PCP No primary care provider on file., None, None ? Pharmacy No Pharmacies Listed ? Durable Medical Equipment Durable Medical Equipment at home: None ? Home Health Receiving home health: In the past Agency name: unable to state ? Hemodialysis or Peritoneal Dialysis Undergoing hemodialysis or peritoneal dialysis: No ? Tube/Enteral Feeds Receive tube/enteral feeds: No ? Infusion Receive infusions: No ? Private Duty Private duty help used: No ? Home and Community Based Services Home and community based services: No ? James White James White: No ? Hospice Hospice: No ? Outpatient Therapy PT: No OT: No ORIENTATION AND MOBILITY SPECIALIST: No ? Intermediate Facility/Prison SNF: No NH: No ? Inpatient Rehab IPR: No ? Long-Term Acute Care Hospital LTACH: No ? Acute Hospital Stay Acute Hospital Stay: In the past Was patient's stay within the last 30 days?: No Nohemi Kohler LMSW Phone: [phone] Pager: [phone] ANALYST * Acute Stroke Response - Chrissy Kolb RN - 03/09/2018 6:23 AM RATE ANALYST RN Stroke Activation Summary Date of Service: 03/09/2018 Adeline Garcia is a 78 y.o. female. : 1940 Allergies: Patient has no allergy information on record. Patient Arrival: 622 ASRT Arrival: 06 Location of Response : [facility] CT Page Received: 6850 Clinical Presentation: Aphasia, Dysarthria, Right sided weakness Total Stroke Scale Score: 8 Signs & Symptoms: Last Known Well Last Known Well - Date: 03/08/18 Last Known Well - Time: 2229 Dysphagia screen: Did Patient Pass The Swallow Screen Part I?: No If "No" Name of Physician Notified: Stevo Assessment & Plan Summary: Pt presented to OSH for AMS. Family thought the patient might be hypoglycemic, but blood glucose was 208 at OSH. Pts initial NIHSS was 12 with right sided neglect, right arm weakness, aphasia, left gaze preference. LNW was around 2230 03/08. TPA was given at 0257 at OSH and pts NIHSS improved to a 7- regaining right arm strength and speech. Troponin at OSH was 1.5. Upon arrival, pts NIHSS was 8. CT head negative for bleed. CTA shows small distal stroke. Transferred to CA5. EKG performed and showed borderline ST elevation in anterior leads and troponin was drawn. Will likely transfer to cardiology. Radiology/Interventional Delay Decision to IR: No Delays: No N/A Plan: monitor post TPA. Transfer to cardiology. Call Completion: 653 RN handoff: Day RN History of Present Illness No past medical history on file. No past surgical history on file. Social History Socioeconomic History Marital status: Not on file Spouse name: Not on file Number of children: Not on file Years of education: Not on file Highest education level: Not on file Occupational History Not on file Tobacco Use Smoking status: Not on file Substance and Sexual Activity Alcohol use: Not on file Drug use: Not on file Sexual activity: Not on file Other Topics Concern Not on file Social History Narrative Not on file Chrissy Kolb RN ANALYST in this encounter Plan of Treatment Date/Time Name Priority Associated Diagnoses 03/09/2018 11:51 AM RATE ANALYST UA REFLEX CULTURE LABEL Routine Order Schedule Name Priority Associated Diagnoses ONE TIME for 1 Occurrences starting 03/11/2018 EVENT MONITOR Routine as of this encounter Procedures Comments Procedure Name Priority Date/Time Associated Diagnosis CBC Routine 03/11/2018 5:10 AM RATE ANALYST MAGNESIUM Routine 03/11/2018 5:10 AM RATE ANALYST BASIC METABOLIC PANEL Routine 03/11/2018 5:10 AM RATE ANALYST CBC Routine 03/10/2018 4:10 AM RATE ANALYST PHOSPHORUS Routine 03/10/2018 4:10 AM RATE ANALYST MAGNESIUM Routine 03/10/2018 4:10 AM RATE ANALYST BASIC METABOLIC PANEL Routine 03/10/2018 4:[address] HEAD WO CONTRAST Routine 03/10/2018 3:53 AM RATE ANALYST DEVICE EVALUATION - PPM STAT 03/09/2018 2:50 PM RATE ANALYST ABDOMEN AP ONLY Routine 03/09/2018 1:21 PM RATE ANALYST URINALYSIS MICROSCOPIC Routine 03/09/2018 REFLEX TO CULTURE 11:51 AM RATE ANALYST URINALYSIS DIPSTICK Routine 03/09/2018 REFLEX TO CULTURE 11:51 AM RATE ANALYST 2-D + DOPPLER Routine 03/09/2018 ECHOCARDIOGRAM 11:31 AM RATE ANALYST TROPONIN-I STAT 03/09/2018 10:40 AM RATE ANALYST CHEST SINGLE VIEW STAT 03/09/2018 8:29 AM RATE ANALYST TROPONIN-I STAT 03/09/2018 8:06 AM RATE ANALYST BNP (B-TYPE NATRIURETIC Routine 03/09/2018 PEPTI) 8:06 AM RATE ANALYST CONSULT IV THERAPY TEAM STAT 03/09/2018 7:38 AM RATE ANALYST TROPONIN-I STAT 03/09/2018 7:00 AM RATE ANALYST PTT (APTT) Routine 03/09/2018 7:00 AM RATE ANALYST PROTIME INR (PT) Routine 03/09/2018 7:00 AM RATE ANALYST CBC AND DIFF Routine 03/09/2018 7:00 AM RATE ANALYST PHOSPHORUS Routine 03/09/2018 7:00 AM RATE ANALYST MAGNESIUM Routine 03/09/2018 7:00 AM RATE ANALYST HEMOGLOBIN A1C Routine 03/09/2018 7:00 AM RATE ANALYST LIPID PROFILE Routine 03/09/2018 7:00 AM RATE ANALYST BASIC METABOLIC PANEL Routine 03/09/2018 7:[address] BRAIN PERF STAT 03/09/2018 6:50 AM RATE ANALYST CTA NECK WO/W STAT 03/09/2018 CONTRAST+POST P 6:50 AM RATE ANALYST CTA HEAD WO/W CONTR+POST STAT 03/09/2018 PRO 6:50 AM RATE ANALYST ECG 12-LEAD STAT 03/09/2018 6:26 AM RATE ANALYST in this encounter Results * MAGNESIUM (03/11/2018 5:10 AM RATE ANALYST) Magnesium 1.7 1.6 - 2.6 mg/dL [facility] Specimen Blood Performing Organization Address [facility] Phone Number [facility] [address] [place] [address] * BASIC METABOLIC PANEL (03/11/2018 5:10 AM RATE ANALYST) Sodium 135 (L) 137 - 147 MMOL/L [...] for questions. Specimen Blood Performing Organization Address [facility] Phone Number [facility] [address] [place] [address] * CBC (03/11/2018 5:10 AM RATE ANALYST) White Blood Cells 6.5 4.5 - 11.0 [...] MAIN LAB Specimen Blood Performing Organization Address City/[facility] Phone Number [facility] [address] [place] [address] * PHOSPHORUS (03/10/2018 4:10 AM RATE ANALYST) Phosphorus 4.0Comment: NOTE NEW REFERENCE 2.0 - 4.5 MG/DL [facility] RANGES Specimen Blood Performing Organization Address City/[facility] Phone Number [facility] [address] [place] [phone] * MAGNESIUM (03/10/2018 4:10 AM RATE ANALYST) Magnesium 2.1 1.6 - 2.6 mg/dL [facility] Specimen Blood Performing Organization Address [facility] Phone Number [facility] [address] [place] [phone] * BASIC METABOLIC PANEL (03/10/2018 4:10 AM RATE ANALYST) Sodium 138 137 - 147 MMOL/L [facility] Potassium 4.1 3.5 - 5.1 MMOL/L [facility] Chloride 105 98 - 110 MMOL/L [facility] CO2 26 21 - 30 MMOL/L [facility] Anion Gap 7 3 - 12 [facility] Glucose 127 (H) 70 - 100 MG/DL [facility] Blood Urea Nitrogen 17 7 - 25 MG/DL [facility] Creatinine 1.07 (H) 0.4 - 1.00 MG/DL [facility] Calcium 9.7 8.5 - 10.6 MG/DL [facility] eGFR Non 50 (L) >60 mL/min [facility] Comment: [...] for questions. Specimen Blood Performing Organization Address City/[facility]/Zipcode Phone Number MAIN LAB [address] [place] [address] * CBC (03/10/2018 4:10 AM RATE ANALYST) White Blood Cells 6.5 4.5 - 11.0 K/UL [facility] RBC 4.73 4.0 - 5.0 M/UL [facility] Hemoglobin 13.9 12.0 - 15.0 GM/DL [facility] Hematocrit 42.2 36 - 45 % [facility] MCV 89.4 80 - 100 FL [facility] MCH 29.5 26 - 34 PG [facility] MCHC 33.0 32.0 - 36.0 G/DL [facility] RDW 14.3 11 - 15 % [facility] Platelet Count 171 150 - 400 K/UL [facility] MPV 9.6 7 - 11 FL [facility] Specimen Blood Performing Organization Address [facility] Phone Number [facility] [address] [place] [address] * CT HEAD WO CONTRAST (03/10/2018 3:53 AM RATE ANALYST) Impressions Performed At 1.Development of subtle vague [...] Interface, Radiant Results - 03/10/2018 4:23 AM RATE ANALYST EXAM: CT HEAD CLINICAL INDICATION: Female, 78 [...] DEVICE EVALUATION - PPM (03/09/2018 2:50 PM RATE ANALYST) Generator Sex[facility] OTHER OUTSIDE LAB Generator Model # Accent DR RF 1964 OTHER OUTSIDE LAB Generator Serial # [id number] OTHER OUTSIDE LAB Generator Implnat Date 03/01/13 OTHER OUTSIDE LAB Device Mode DDDR OTHER OUTSIDE LAB Lower Rate Limit 65 OTHER OUTSIDE LAB Atrial Lead Sexologist [facility] OTHER OUTSIDE LAB Atrial Lead Model # Tendril STS 2088TC - 46cm OTHER OUTSIDE LAB Atrial Lead Serial # [id number] OTHER OUTSIDE LAB Atrial Lead Implant Date 03/01/13 OTHER OUTSIDE LAB RV Lead Sexologist [facility] OTHER OUTSIDE LAB RV Lead Model # Tendril STS 2088TC - 52cm OTHER OUTSIDE LAB RV Lead Serial # [id number] OTHER OUTSIDE LAB RV Lead Implant Date 03/01/13 OTHER OUTSIDE LAB Initial Rhythm -VS OTHER OUTSIDE LAB Underlying Rhythm SR 80's OTHER OUTSIDE LAB Upper Rate Limit 125 OTHER OUTSIDE LAB Pace AV Delay 250 OTHER OUTSIDE LAB Sense AV Delay 225 OTHER OUTSIDE LAB -VS% 34 OTHER OUTSIDE LAB -DUBBING MACHINE OPERATOR% <1 OTHER OUTSIDE LAB -VS% 65 OTHER OUTSIDE LAB AP-DUBBING MACHINE OPERATOR% <1 OTHER OUTSIDE LAB # Mode S. [...] * ABDOMEN AP ONLY (03/09/2018 1:21 PM RATE ANALYST) Impressions Performed At No indwelling metal objects [...] Interface, Radiant Results - 03/09/2018 4:34 PM RATE ANALYST ABDOMEN AP ONLY Clinical Indication: Female, 78 [...] on 03/09/2018 1:29 PM. Performing Organization Address [facility] Phone Number RAD RESULTS * URINALYSIS MICROSCOPIC REFLEX TO CULTURE (03/09/2018 11:51 AM RATE ANALYST) WBCs,UA 0-2 0 - 2 /HPF [facility] RBCs,UA 0-2 0 - 3 /HPF [facility] Comment,UA Urine submitted for reflex [facility] culture if criteria are met:WBC>10, positive nitrite and/or >=1+ leukocyte esterase. If quantity is not sufficient, an addendum will follow. Squamous Epithelial Cells 0-2 0 - 5 [facility] Specimen Urine Performing Organization Address [facility] Phone Number MAIN LAB [address] [place] [address] * URINALYSIS DIPSTICK REFLEX TO CULTURE (03/09/2018 11:51 AM RATE ANALYST) Color,UA STRAW [facility] Turbidity,UA CLEAR CLEAR-CLEAR [facility] Specific [place]-Urine 1.020 1.003 - 1.035 [facility] MAIN [facility] [...] MAIN LAB Specimen Urine Performing Organization Address [facility] Phone Number MAIN LAB [address] [place] [address] * 2-D + DOPPLER ECHOCARDIOGRAM (03/09/2018 11:31 AM RATE ANALYST) IVS 0.96 0.6 - 0.9 cm OTHER [...] m2 OTHER OUTSIDE LAB CV ECHO PV RIM ROLLER SETTER ANGEL Callahan OTHER OUTSIDE LAB FS 16.43 28 - 44 % OTHER OUTSIDE LAB EF 27.93 % OTHER OUTSIDE LAB LV mass 194.37 66 - 150 g OTHER OUTSIDE LAB RWT 0.31 <=0.42 OTHER OUTSIDE LAB E/A ratio 0.76 OTHER OUTSIDE LAB E/E' ratio 14.50 OTHER OUTSIDE LAB Left Atrium Index 50.93 16 - 34 OTHER OUTSIDE LAB Cardiology Ultrasound Siemens [id number] OTHER OUTSIDE LAB Machine Left Ventricle Mass [...] OUTSIDE LAB * TROPONIN-I (03/09/2018 10:40 AM RATE ANALYST) Troponin-I 0.78 (H) 0.0 - 0.05 NG/ML [facility] Specimen Blood Performing Organization Address City/State/Zipcode Phone Number MAIN LAB [address] [place] [address] * CHEST SINGLE VIEW (03/09/2018 8:29 AM RATE ANALYST) Impressions Performed At Mild cardiomegaly with no [...] Interface, Radiant Results - 03/09/2018 11:21 AM RATE ANALYST CHEST SINGLE VIEW Clinical history: Post TPA [...] on 03/09/2018 8:56 AM. Performing Organization Address [facility] Phone Number RAD RESULTS * BNP (B-TYPE NATRIURETIC PEPTI) (03/09/2018 8:06 AM RATE ANALYST) B Type Natriuretic 334.0 (H) 0 - 100 PG/ML MAIN LAB Peptide Specimen Blood Performing Organization Address [facility] Phone Number MAIN LAB [address] [place] [address] * TROPONIN-I (03/09/2018 8:06 AM RATE ANALYST) Troponin-I 0.74 (H) 0.0 - 0.05 NG/ML MAIN LAB Specimen Blood Performing Organization Address [facility] Phone Number MAIN LAB [address] [place] [address] * PHOSPHORUS (03/09/2018 7:00 AM RATE ANALYST) Phosphorus 3.7Comment: NOTE NEW REFERENCE 2.0 - 4.5 MG/DL MAIN [facility] RANGES Specimen Blood Performing Organization Address [facility] Phone Number MAIN LAB [address] [place] [address] * MAGNESIUM (03/09/2018 7:00 AM RATE ANALYST) Magnesium 1.4 (L) 1.6 - 2.6 mg/dL MAIN LAB Specimen Blood Performing Organization Address [facility] Phone Number MAIN LAB [address] [place] [address] * TROPONIN-I (03/09/2018 7:00 AM RATE ANALYST) Troponin-I 0.67 (H) 0.0 - 0.05 NG/ML MAIN LAB Specimen Blood Performing Organization Address [facility] Phone Number MAIN LAB [address] [place] [address] * BASIC METABOLIC PANEL (03/09/2018 7:00 AM RATE ANALYST) Sodium 136 (L) 137 - 147 MMOL/L MAIN LAB Potassium 4.0 3.5 - 5.1 MMOL/L MAIN LAB Chloride 104 98 - 110 MMOL/L [facility] CO2 23 21 - 30 MMOL/L [facility] Anion Gap 9 3 - 12 [facility] Glucose 146 (H) 70 - 100 MG/DL [facility] Blood Urea Nitrogen 25 7 - 25 MG/DL MAIN LAB Creatinine 1.17 (H) 0.4 - 1.00 MG/DL [facility] Calcium 9.2 8.5 - 10.6 MG/DL [facility] eGFR Non 45 (L) >60 mL/min [facility] Comment: The eGFR is not validated for use in drug dosing adjustments.Continue to use estimated creatinine clearance per dosing reference text.Please contact the Clinical Pharmacist for questions. eGFR 54 (L) >60 mL/min [facility] Comment: The eGFR is not validated for use in drug dosing adjustments.Continue to use estimated creatinine clearance per dosing reference text.Please contact the Clinical Pharmacist for questions. Specimen Blood Performing Organization Address City/[facility] Phone Number [facility] [address] [place] [address] * PTT (APTT) (03/09/2018 7:00 AM RATE ANALYST) APTT 25.0Comment: NOTE NEW 24.0 - 36.5 SEC [facility] REFERENCE RANGES Specimen Blood Performing Organization Address [facility] Phone Number [facility] [address] [place] [address] * PROTIME INR (PT) (03/09/2018 7:00 AM RATE ANALYST) INR 1.0 0.8 - 1.2 [facility] Specimen Blood Performing Organization Address [facility] Phone Number [facility] [address] [place] [phone] * CBC AND DIFF (03/09/2018 7:00 AM RATE ANALYST) White Blood Cells 6.6 4.5 - 11.0 K/UL MAIN LAB RBC 4.46 4.0 - 5.0 M/UL MAIN LAB Hemoglobin 13.2 12.0 - 15.0 GM/DL MAIN LAB Hematocrit 39.7 36 - 45 % MAIN LAB MCV 88.9 80 - 100 FL MAIN LAB MCH 29.5 26 - 34 PG MAIN LAB MCHC 33.2 32.0 - 36.0 [...] Basophil Count 0.00 0 - 0.20 K/UL MAIN LAB Specimen Blood Performing Organization Address City/[facility] Phone Number MA[facility] LAB [address] [place] [address] * HEMOGLOBIN A1C (03/09/2018 7:00 AM RATE ANALYST) Hemoglobin A1C 6.4 (H) 4.0 - 6.0 % MAIN LAB Comment: The ADA recommends that most patients with type 1 and type 2 diabetes maintain an A1c level <7%. Specimen Blood Performing Organization Address [facility] Phone Number [facility] [address] [place] [address] * LIPID PROFILE (03/09/2018 7:00 AM RATE ANALYST) Cholesterol 217 (H) <200 MG/DL [facility] Triglycerides 138 <150 MG/DL MAIN LAB HDL 37 (L) >40 MG/DL [facility] LDL 165 (H) <100 MG/DL [facility] VLDL 28 MG/DL [facility] Non HDL Cholesterol 180 MG/DL [facility] Comment: Calculated non-HDL Cholesterol (non-HDL-C) indirectly measures LDL-C, Lp(a), IDL-C, and VLDL-C.It is a surrogate marker for Apoprotein B.Goal should be less than 130 mg/dL. Specimen Blood Performing Organization Address [facility] Phone Number [facility] [address] [place] [address] * CTA NECK WO/W CONTRAST+POST P (03/09/2018 6:50 AM RATE ANALYST) Impressions Performed At CTA head: [facility] RAD [...] Interface, Radiant Results - 03/09/2018 7:28 AM RATE ANALYST EXAM: CTA HEAD AND NECK, CTA BRAIN [...] HEAD WO/W CONTR+POST PRO (03/09/2018 6:50 AM RATE ANALYST) Impressions Performed At CTA head: [facility] RAD [...] Interface, Radiant Results - 03/09/2018 7:28 AM RATE ANALYST EXAM: CTA HEAD AND NECK, CTA BRAIN [...] City/State/Zipcode Phone Number [facility] RAD RESULTS * CT BRAIN PERF (03/09/2018 6:50 AM RATE ANALYST) Impressions Performed At CTA head: [facility] RAD [...] Interface, Radiant Results - 03/09/2018 7:28 AM RATE ANALYST EXAM: CTA HEAD AND NECK, CTA BRAIN [...] Address City/State/Zipcode Phone Number [facility] RESULTS in this encounter Visit Diagnoses Diagnosis Stroke (cerebrum) (HCC) - Primary Unspecified cerebral artery occlusion with cerebral infarction Expressive aphasia Aphasia Hyperglycemia Other abnormal glucose Renovascular hypertension Secondary renovascular hypertension, unspecified Acute ischemic left MCA stroke (HCC) Unspecified cerebral artery occlusion with cerebral infarction Cerebrovascular accident (CVA) due to thrombosis of left middle cerebral artery (HCC) Hyperlipidemia, unspecified hyperlipidemia type Heart disease Heart disease, unspecified ST elevation Nonspecific abnormal electrocardiogram (ECG) (EKG) Chronic kidney disease Chronic kidney disease, unspecified in this encounter Admitting Diagnoses Diagnosis Stroke (cerebrum) (HCC) Unspecified cerebral artery occlusion with cerebral infarction in this encounter Administered Medications Action Date Dose Rate Site Medication Order MAR Action 03/11/2018 8:06 AM RATE ANALYST 81 mg aspirin chewable tablet 81 mg Given 81 mg, Oral, DAILY, First dose on Fri03/10/18 at 1315, Until Discontinued 81 mg Given 03/10/2018 1:51 PM RATE ANALYST 03/11/2018 8:05 AM RATE ANALYST 40 mg atorvastatin (LIPITOR) tablet 40 mg Given 40 mg, Oral, DAILY, First dose on Fri03/10/18 at 1315, Until Discontinued 40 mg Given 03/10/2018 1:51 PM RATE ANALYST 03/11/2018 8:05 AM RATE ANALYST 6.25 mg carvedilol (COREG) tablet 6.25 mg Given 6.25 mg, Oral, TWICE DAILY, First dose on Fri03/09/18 at 2100, Until Discontinued, Hold for heart rate < 60 bpm or systolic BP < 100, 6.25 mg Given 03/10/2018 8:04 PM RATE ANALYST 6.25 mg Given 03/10/2018 9:15 AM RATE ANALYST 03/11/2018 8:05 AM RATE ANALYST 75 mg clopiDOGrel (PLAVIX) tablet 75 mg Given 75 mg, Oral, DAILY, First dose on Fri03/10/18 at 1245, Until Discontinued, This Medication can increase the risk of bleeding and may need to be held prior to surgery or invasive procedures. Consult physician in advance., 75 mg Given 03/10/2018 1:51 PM RATE ANALYST 03/10/2018 9:15 AM RATE ANALYST 100 mg docusate (COLACE) capsule 100 mg Given 100 mg, Oral, TWICE DAILY, First dose on Fri03/09/18 at 2100, Until Discontinued, Hold for loose stools, 100 mg Given 03/09/2018 8:22 PM RATE ANALYST 03/11/2018 6:13 AM RATE ANALYST 5,000 Units Abdomen:RLQ heparin (porcine) PF syringe 5,000 Units Given 5,000 Units, Subcutaneous, EVERY 8 HOURS, First dose on Fri03/10/18 at 1400, Until Discontinued, NOTE: This is a HIGH ALERT Medication., 5,000 Units Abdomen:LLQ Given 03/10/2018 10:32 PM RATE ANALYST 5,000 Units Abdomen:LUQ Given 03/10/2018 1:53 PM RATE ANALYST 03/09/2018 7:00 AM RATE ANALYST 100 mL iohexol (OMNIPAQUE-350) 350 mg/mL Given injection 100 mL 100 mL, Intravenous, ONCE, 1 dose, Fri03/09/18 at 0700, NOTE: This is a HIGH ALERT Medication., 03/09/2018 7:47 AM RATE ANALYST 10 mg labetalol (NORMODYNE) injection 10 mg Given 10 mg, Intravenous, NEEDED, 2 doses, Starting Fri03/09/18 at 0626, Until Fri03/09/18 at 0801, Blood Pressure..., , For SBP >=185mmHg and/or DBP >=110mmHg Push over ONE min. Dose to be DOUBLED every 15min, if needed. Max Ibdk=[id number]. Notify Physician if BP not controlled after TWO doses., 03/11/2018 8:05 AM RATE ANALYST 5 mg lisinopril (PRINIVIL; ZESTRIL) tablet 5 Given mg 5 mg, Oral, DAILY, First dose on Fri03/10/18 at 1315, Until Discontinued 5 mg Given 03/10/2018 1:51 PM RATE ANALYST 03/09/2018 12:00 PM RATE ANALYST 1 g 100 mL/hr magnesium sulfate 1 g/D5W 100 mL IVPB Given - New 1 g, Intravenous, 100 mL, Administer Bag over 1 Hours, EVERY 1 HOUR FOR 4 DOSES, 4 doses, First dose on Fri03/09/18 at 0800, Last dose on Fri03/09/18 at 1100, Each 1gm delivers 8.1 mEq Magnesium., 1 g 100 mL/hr Given - New Bag 03/09/2018 10:43 AM RATE ANALYST 1 g 100 mL/hr Given - New Bag 03/09/2018 9:41 AM RATE ANALYST 03/10/2018 9:16 AM RATE ANALYST 10 mL milk of magnesia (CONC) oral suspension Given 10 mL 10 mL, Oral, DAILY, First dose on Fri03/09/18 at 1515, Until Discontinued, May hold if BM within 24 hours of dose. 10 mL CONC=30 mL MOM, 03/09/2018 11:19 AM RATE ANALYST 2 Diluted mL perflutren lipid microspheres (DEFINITY) Given injection 1-20 Diluted mL 1-20 Diluted mL, Intravenous, ONCE, 1 dose, Fri03/09/18 at 1115, NOTE: This is a HIGH ALERT Medication., MAC Procedure Area Only - Medications 03/10/2018 9:15 AM RATE ANALYST 1 tablet senna/docusate (SENOKOT-S) tablet 1 Given tablet 1 tablet, Oral, TWICE DAILY, First dose on Fri03/09/18 at 2100, Until Discontinued, Hold for loose stools. If patient unable to take tablet, give 10 mL of senna/docusate (SENOKOT-S) solution. Send inGeospizaet message to pharmacy., If patient unable to take tablet, give 10 mL of senna/docusate (SENOKOT-S) solution., 1 tablet Given 03/09/2018 8:22 PM RATE ANALYST 03/09/2018 7:00 AM RATE ANALYST 50 mL sodium chloride PF 0.9% injection 50 mL Given 50 mL, Intravenous, ONCE, 1 dose, Fri03/09/18 at 0700, DO NOT SEND this medication unless it is requested. This med is usually available in floor stock., Intra-procedure (IR) in this encounter
--- OUTSIDE RECORDS SUMMARY | 2018-03-11 18:57 | XMS REPORT ---
Author Author WEST GASTON [facility] Address [address] [place] [address] Care Team Providers Care Faculty Head Name Role Phone WEST GASTON Unavailable PROBLEMS Type Condition ICD9-CM Code USE50-XO Code Onset Dates Condition Status SNOMED Code Problem Non morbid obesity due to excess calories E66.09 Active 809362282 Problem Depression F32.9 Active 35256438 Problem Hyperlipidemia, unspecified hyperlipidemia E78.5 Active 96760282 Problem DM 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 Active 10324253 Problem Hammertoe of right foot M20.41 Active 231352426 Problem Acquired hypothyroidism E03.9 Active 368396437 Problem Essential hypertension I10 Active 23727887 Problem Hammertoe of left foot M20.42 Active 801839557 Problem GERD without esophagitis K21.9 Active 488343946 Problem Type 2 diabetes mellitus with other circulatory complication, 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 Active 92730353 Problem CKD (chronic kidney disease) stage 2, GFR 60-89 ml/min N18.2 Active 640927650 Problem Anemia of renal disease D63.1 Active 118732355 Problem S/P cardiac pacemaker procedure Z95.0 Active 661308408 Problem Diabetes mellitus with complication E11.8 Active 71931049 Problem 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 Active 341941586 Problem Microalbuminuria R80.9 Active 938269520 ALLERGIES No Information ENCOUNTERS Encounter Location Date Diagnosis [facility] [address] [facility] [id number] [address] Jan, Encounter for immunization Z23 [facility] [address] [id number] [address] Jan, Essential hypertension I10 ; CKD (chronic kidney disease) stage 2, GFR 60-89 ml/min N18.2 ; Anemia of renal disease D63.1 ; Acquired hypothyroidism E03.9 ; 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 ; GERD without esophagitis K21.9 and Diabetes mellitus with complication E11.8 [place] [id number] [place] [address] Mar, Onychomycosis B35.1 ; Hammertoe of left foot M20.42 ; Hammertoe of right foot M20.41 and DM 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 [place] [id number] [place] [address] Mar, CKD (chronic kidney disease) stage 2, GFR 60-89 ml/min N18.2 [place] [id number] [place] [address] Jan, [address] [address] Jan, Diabetes mellitus with complication E11.8 ; Essential hypertension I10 ; Depression F32.9 ; Hyperlipidemia, unspecified hyperlipidemia E78.5 ; Non morbid obesity due to excess calories E66.09 ; Acquired hypothyroidism E03.9 ; 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 and GERD without esophagitis K21.9 [place] [id number] [place] [address] Sep, [place] [id number] [place] [address] Feb, Essential hypertension I10 ; 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 ; Microalbuminuria R80.9 ; Depression F32.9 ; Diabetes mellitus with complication E11.8 ; Anemia of renal disease D63.1 ; CKD (chronic kidney disease ) stage 2, GFR 60-89 ml/min N18.2 ; Hyperlipidemia, unspecified hyperlipidemia E78.5 and Acquired hypothyroidism E03.9 [place] [id number] [place] [address] Jan, [facility] [address] [facility] [id number] [place], [place] [address] Jan, 2015 Diabetes mellitus with complication E11.8 ; Essential hypertension I10 ; Depression F32.9 ; Hyperlipidemia, unspecified hyperlipidemia E78.5 ; Anemia of renal disease D63.1 ; CKD (chronic kidney disease) stage 2, GFR 60-89 ml/min N18.2 ; Microalbuminuria R80.9 ; 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 ; S/P cardiac pacemaker procedure Z95.0 and Non morbid obesity due to excess calories E66.09 IMMUNIZATIONS Vaccine Route Administration Date Status FLULAVAL QUAD 0.5ML (6 MO & UP) 2018 IM Intramuscular 2018 Administered SOCIAL HISTORY Never Assessed REASON FOR VISIT Flu shot PLAN OF CARE VITAL SIGNS MEDICATIONS Unknown Medications RESULTS No Results PROCEDURES Procedure Date Ordered Result Body Site FLULAVAL QUAD 0.5ML (6 MO & UP) 2018 2018 SINGLE IMMUNIZATION ADMIN 2018 INSTRUCTIONS MEDICATIONS ADMINISTERED No Known Medications MEDICAL (GENERAL) HISTORY Type Description Date Medical History Diabetes Medical History Hypertension Medical History Kidney Disease Stage 4-- sees Dr. Sotelo in [place] Medical History Hyperlipidemia Surgical History Total knee replacement bilaterally 12/2008- Surgical History Triple bypass 2000 Surgical History Partial hysterectomy inside was falling out after had son Surgical History Right big toe Surgical History pacemaker 02/2014 Surgical History 23 cardiac stents -Dr. Pal Surgical History umbilical hernia repair-Laurel Sears
--- OUTSIDE RECORDS SUMMARY | 2018-03-11 18:57 | XMS REPORT ---
Author Author ZION BLACK Organization [facility] Address [address] [place] [address] Care Team Providers Care City Distribution Clerk Name Role Phone BLACK DONOVAN Unavailable PROBLEMS Type Condition ICD9-CM Code VHW09-KL Code Onset Dates Condition Status SNOMED Code Problem Non morbid obesity due to excess calories E66.09 Active 634143095 Problem Depression F32.9 Active 60620808 Problem Hyperlipidemia, unspecified hyperlipidemia E78.5 Active 00249872 Problem DM 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 Active 95180580 Problem Hammertoe of right foot M20.41 Active 242227598 Problem Acquired hypothyroidism E03.9 Active 177298465 Problem Essential hypertension I10 Active 53852744 Problem Hammertoe of left foot M20.42 Active 338647281 Problem GERD without esophagitis K21.9 Active 288105340 Problem Type 2 diabetes mellitus with other circulatory complication, 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 Active 41010877 Problem CKD (chronic kidney disease) stage 2, GFR 60-89 ml/min N18.2 Active 743257066 Problem Anemia of renal disease D63.1 Active 322503236 Problem S/P cardiac pacemaker procedure Z95.0 Active 526018315 Problem Diabetes mellitus with complication E11.8 Active 63594063 Problem 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 Active 719673729 Problem Microalbuminuria R80.9 Active 428645043 ALLERGIES No Information SOCIAL HISTORY Never Assessed PLAN OF CARE Activity Details Follow Up 3 Months Reason: VITAL SIGNS Height 58.0 in 2016-04-05 Blood pressure systolic 128 mmHg 2016-04-05 Blood pressure diastolic 78 mmHg 2016-04-05 MEDICATIONS Unknown Medications RESULTS No Results PROCEDURES Procedure Date Ordered Result Body Site DEBRIDE NAIL, 1-5 Apr 05, 2016 [facility] VISIT ESTABLISHED PATIENT Apr 05, 2016 IMMUNIZATIONS No Known Immunizations MEDICAL (GENERAL) HISTORY Type Description Date Medical History Diabetes Medical History Hypertension Medical History Kidney Disease Stage 4-- sees Dr. Sotelo in [place] Medical History Hyperlipidemia Surgical History Total knee replacement bilaterally 12/2008- Surgical History Triple bypass 2000 Surgical History Partial hysterectomy inside was falling out after had son Surgical History Right big toe Surgical History pacemaker 02/2014 Surgical History 23 cardiac stents -Dr. Pal Surgical History umbilical hernia repair-Laurel Sears
--- OUTSIDE RECORDS SUMMARY | 2018-03-11 18:57 | XMS REPORT | Encounter Summary ---
Author Author [facility] Organization [facility] Address Unknown Phone Unavailable Care Team Providers Care Catering Convention Services Manager Name Role Phone No Pcp, Na PCP Unavailable Reason for Visit * Auth/Cert Referred By Contact Referred To Contact Status Reason Specialty Diagnoses / Procedures Diagnoses Stroke (cerebrum) (HCC) NSTEMI; Stroke Encounter Details Care Team Description Date Type Department Moon Kuhn MD [address] [place] [address] Arrived 03/09/2018 Hospital Cardiovascular Medicine Encounter Main [facility] [place] [address] Social History Date Tobacco Use Types Packs/Day Years Used Never Assessed Sex Assigned at Date Recorded Not on file Industry Job Start Date Occupation Not on file Not on file Not on file Travel End Travel History Travel Start No recent travel history available. 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
--- OUTSIDE RECORDS SUMMARY | 2018-03-11 18:57 | XMS REPORT ---
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 Active Problem S/P cardiac pacemaker procedure Z95.0 Active Problem Essential hypertension I10 Active Problem Depression F32.9 Active Problem Diabetes mellitus with complication E11.8 Active Problem CKD (chronic kidney disease) stage 2, GFR 60-89 ml/min N18.2 Active Problem Microalbuminuria R80.9 Active Problem Hyperlipidemia, unspecified hyperlipidemia E78.5 Active Problem Anemia of renal disease D63.1 Active Medications Medication Code System Code Instructions Start Date End Date Status Dosage Lisinopril [facility] [address]-11 5 MG Orally Once a day 2 tablet Results No Known Results Summary Purpose [employer] Submission
--- OUTSIDE RECORDS SUMMARY | 2018-03-11 18:58 | XMS REPORT ---
Author TY Russo [employer] Address Unknown Phone Unavailable Care Team Providers Care Shift Supervisor Melting Name Role Phone TY GARCIA CP Unavailable Allergies, Adverse Reactions, Alerts Substance Reaction Event Type N.K.D.A. 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 Active Problem Diabetes mellitus with complication E11.8 Active Problem Essential hypertension I10 Active Problem Acquired hypothyroidism E03.9 Active Problem Anemia of renal disease D63.1 Active Problem CKD (chronic kidney disease) stage 2, GFR 60-89 ml/min N18.2 Active Problem Depression F32.9 Active Problem Hyperlipidemia, unspecified hyperlipidemia E78.5 Active Assessment CKD (chronic kidney disease) stage 2, GFR 60-89 ml/min N18.2 Active Assessment Anemia of renal disease D63.1 Active Assessment Acquired hypothyroidism E03.9 Active Assessment Hyperlipidemia, unspecified hyperlipidemia E78.5 Active Assessment Microalbuminuria R80.9 Active Assessment 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 Active Assessment Diabetes mellitus with complication E11.8 Active Assessment Essential hypertension I10 Active Assessment Depression F32.9 Active Problem Non morbid obesity due to excess calories E66.09 Active Medications Medication Code System Code Instructions Start Date End Date Status Dosage Famotidine [facility] [address]-24 20 MG Orally Once a day 1 tablet at bedtime Levothyroxine Sodium [facility] [address]-43 50 MCG Orally Once a day 1 tablet Vitamin C [facility] [address]-25 1000 MG Orally Once a day 1 tablet Lisinopril [facility] [address]-05 5 MG Orally Once a day 1 tablet Atorvastatin Calcium [facility] [address]-89 40 MG Orally Once a day 1 tablet Aspirin [facility] [address]-56 81 MG Orally Once a day 1 tablet Plavix NDC [address]-82 75 MG Orally Once a day 1 tablet Actos [facility] [address]-86 30 MG Orally Once a day 1/2 tablet Citalopram Hydrobromide [facility] [address]-55 40 MG Orally Once a day 1 tablet iron [facility] 0 Oral 1 tab Magnesium Oxide [facility] [address]-69 400 MG Orally not defined Lovaza [facility] [address]-34 1 GM Orally Twice a day 2 capsules Carvedilol [facility] [address]-40 25 MG Orally 2 times a day 1 tab q am , 1 tab q noon Vitamin D-3 [facility] [address]-75 5000 UNIT Orally not defined Zetia [facility] [address]-19 10 MG Orally Once a day 1 tablet Loratadine [facility] [address]-70 10 MG Orally Once a day 1 tablet Furosemide [facility] [address]-84 20 MG Orally Once a day 1 tablet Procedures Procedure Coding System Code Date [facility] VISIT ESTABLISHED PATIENT CPT-4 G0467 Feb 28, 2015 Office Visit, Est Pt., Level 3 CPT-4 55665 Feb 28, 2015 [facility] NOBLL Feb 28, 2015 VENIPUNCT, ROUTINE* CPT-4 65108 Feb 28, 2015 Vital Signs Date/Time: Feb 28, 2015 Temperature 96.7 F Weight 145.7 lbs Height 58.0 in BMI 30.45 Index Blood Pressure Diastolic 70 mmHg Blood Pressure Systolic 120 mmHg Cardiac Monitoring Heart Rate 68 bpm Results Name Result Date Reference Range Unit Abnormality Flag CBC ----Lymphs 31 20150228 % ----Neutrophils 54 20150228 % ----Baso (Absolute) 0.0 20150228 0.0-0.2 x10E3/uL ----Hemoglobin 11.1 20150228 11.1-15.9 g/dL ----Eos (Absolute) 0.2 20150228 0.0-0.4 x10E3/uL ----Hematocrit 34.5 20150228 34.0-46.6 % ----Monocytes(Absolute) 0.3 20150228 0.1-0.9 x10E3/uL ----MCV 92 20150228 79-97 fL ----Lymphs (Absolute) 1.0 71990092 0.7-3.1 x10E3/uL ----MCH 29.6 33041329 26.6-33.0 pg ----Neutrophils (Absolute) 1.8 94741422 1.4-7.0 x10E3/uL ----MCHC 32.2 48960734 31.5-35.7 g/dL ----Immature Granulocytes 0 85500965 % ----Basos 1 92506693 % ----RDW 13.7 83409758 12.3-15.4 % ----Immature Grans (Abs) 0.0 22386558 0.0-0.1 x10E3/uL ----WBC 3.3 61298295 3.4-10.8 x10E3/uL L ----Platelets 146 51590636 150-379 x10E3/uL L ----Eos 6 71855238 % ----RBC 3.75 27962081 3.77-5.28 x10E6/uL L ----Monocytes 8 96282895 % LIPID PANEL ----LDL Cholesterol Calc 77 71299224 0-99 mg/dL ----VLDL Cholesterol Gigi 16 63383125 5-40 mg/dL ----Cholesterol, Total 123 51990638 100-199 mg/dL ----HDL Cholesterol 30 58416127 >39 mg/dL L ----Triglycerides 79 90020683 0-149 mg/dL ROUTINE VENIPUNCTURE TSH ----TSH 2.080 19965571 0.450-4.500 uIU/mL CMP ----Potassium, Serum 4.9 83993935 3.5-5.2 mmol/L ----Sodium, Serum 138 63362634 134-144 mmol/L ----BUN/Creatinine Ratio 30 79965820 11-26 H ----eGFR If Africn Am 44 86236006 >59 mL/min/1.73 L ----eGFR If NonAfricn Am 38 19347180 >59 mL/min/1.73 L ----Creatinine, Serum 1.36 45938899 0.57-1.00 mg/dL H ----BUN 41 25241153 8-27 mg/dL H ----Glucose, Serum 98 20150228 65-99 mg/dL ----AST (SGOT) 28 20150228 0-40 IU/L ----Globulin, Total 2.2 20150228 1.5-4.5 g/dL ----ALT (SGPT) 12 20150228 0-32 IU/L ----A/G Ratio 2.1 20150228 1.1-2.5 ----Bilirubin, Total 0.6 20150228 0.0-1.2 mg/dL ----Alkaline Phosphatase, S 79 20150228 39-117 IU/L ----Carbon Dioxide, Total 25 20150228 18-29 mmol/L ----Calcium, Serum 9.4 20150228 8.7-10.3 mg/dL ----Protein, Total, Serum 6.8 20150228 6.0-8.5 g/dL ----Albumin, Serum 4.6 20150228 3.5-4.8 g/dL ----Chloride, Serum 98 20150228 97-108 mmol/L Summary Purpose [employer] Submission
--- OUTSIDE RECORDS SUMMARY | 2018-03-11 18:58 | XMS REPORT ---
Author Author ADELAIDE CONNOLLY Organization [facility] Address [address] [place] [address] Care Team Providers Care Credit Risk Management Director Name Role Phone ADELAIDE CONNOLLY Unavailable PROBLEMS Type Condition ICD9-CM Code AMI51-ZV Code Onset Dates Condition Status SNOMED Code Problem Non morbid obesity due to excess calories E66.09 Active 184326381 Problem Depression F32.9 Active 73302193 Problem Hyperlipidemia, unspecified hyperlipidemia E78.5 Active 69500797 Problem DM 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 Active 24718725 Problem Hammertoe of right foot M20.41 Active 792009533 Problem Acquired hypothyroidism E03.9 Active 838031515 Problem Essential hypertension I10 Active 59852283 Problem Hammertoe of left foot M20.42 Active 618411692 Problem GERD without esophagitis K21.9 Active 186730390 Problem Type 2 diabetes mellitus with other circulatory complication, 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 Active 23284819 Problem CKD (chronic kidney disease) stage 2, GFR 60-89 ml/min N18.2 Active 375889087 Problem Anemia of renal disease D63.1 Active 598890947 Problem S/P cardiac pacemaker procedure Z95.0 Active 985595393 Problem Diabetes mellitus with complication E11.8 Active 26690407 Problem 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 Protein,Total,Urine 79.1 Not Estab. Protein/Creat Ratio 1125 0-200 FERRITIN, SERUM 2016-03-14 Ferritin, Serum 186 15-150 CBC 2016-03-14 WBC 4.3 3.4-10.8 RBC 3.71 3.77-5.28 Hemoglobin 11.0 11.1-15.9 Hematocrit 33.6 34.0-46.6 MCV 91 79-97 MCH 29.6 26.6-33.0 MCHC 32.7 31.5-35.7 RDW 14.0 12.3-15.4 Platelets 124 150-379 Neutrophils 69 Lymphs 19 Monocytes 9 Eos 2 Basos 0 Neutrophils (Absolute) 3.0 1.4-7.0 Lymphs (Absolute) 0.8 0.7-3.1 Monocytes(Absolute) 0.4 0.1-0.9 Eos (Absolute) 0.1 0.0-0.4 Baso (Absolute) 0.0 0.0-0.2 Immature Granulocytes 1 Immature Grans (Abs) 0.0 0.0-0.1 VITAMIN D, 25-H 2016-03-14 Vitamin D, 25-Hydroxy 38.2 30.0-100.0 RENAL PROFILE 2016-03-14 Glucose, Serum 108 65-99 BUN 22 8-27 Creatinine, Serum 1.15 0.57-1.00 eGFR If NonAfricn Am 47 >59 eGFR If Africn Am 54 >59 BUN/Creatinine Ratio 19 11-26 Sodium, Serum 143 134-144 Potassium, Serum 4.5 3.5-5.2 Chloride, Serum 103 96-106 Carbon Dioxide, Total 22 18-29 Calcium, Serum 9.3 8.7-10.3 Phosphorus, Serum 3.4 2.5-4.5 Albumin, Serum 4.3 3.5-4.8 PROCEDURES Procedure Date Ordered Related Diagnosis Body Site [facility], 2016 VENIPUNCT, ROUTINE* Mar 14, 2016 IMMUNIZATIONS No Known Immunizations
--- OUTSIDE RECORDS SUMMARY | 2018-03-11 18:58 | XMS REPORT ---
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 Active Problem CKD (chronic kidney disease) stage 2, GFR 60-89 ml/min N18.2 Active Problem Microalbuminuria R80.9 Active Problem Non morbid obesity due to excess calories E66.09 Active Problem S/P cardiac pacemaker procedure Z95.0 Active Problem Acquired hypothyroidism E03.9 Active Problem Diabetes mellitus with complication E11.8 Active Problem GERD without esophagitis K21.9 Active Problem Hyperlipidemia, unspecified hyperlipidemia E78.5 Active Problem Anemia of renal disease D63.1 Active Problem Essential hypertension I10 Active Problem Depression F32.9 Active Medications Medication Code System Code Instructions Start Date End Date Status Dosage Loratadine [facility] [address]-35 10 mg Orally Once a day 1 tablet Results No Known Results Summary Purpose [employer] Submission
--- OUTSIDE RECORDS SUMMARY | 2018-03-11 18:58 | XMS REPORT ---
Author ADELAIDE Alanis Organization [employer] Address Unknown Phone Unavailable Care Team Providers Care Director Of Finance Name Role Phone ADELAIDE CONNOLLY CP Unavailable Allergies, Adverse Reactions, Alerts Substance Reaction Event Type N.K.D.A. 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 Active Problem CKD (chronic kidney disease) stage 2, GFR 60-89 ml/min N18.2 Active Problem Microalbuminuria R80.9 Active Problem Acquired hypothyroidism E03.9 Active Assessment GERD without esophagitis K21.9 Active Problem Diabetes mellitus with complication E11.8 Active Problem GERD without esophagitis K21.9 Active Problem Hyperlipidemia, unspecified hyperlipidemia E78.5 Active Problem Anemia of renal disease D63.1 Active Problem Essential hypertension I10 Active Problem Depression F32.9 Active Assessment Non morbid obesity due to excess calories E66.09 Active Assessment Hyperlipidemia, unspecified hyperlipidemia E78.5 Active Assessment 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 Active Assessment Acquired hypothyroidism E03.9 Active Assessment Diabetes mellitus with complication E11.8 Active Problem Type 2 diabetes mellitus with other circulatory complication, 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 Active Assessment Depression F32.9 Active Problem Non morbid obesity due to excess calories E66.09 Active Assessment Essential hypertension I10 Active Problem S/P cardiac pacemaker procedure Z95.0 Active Medications Medication Code System Code Instructions Start Date End Date Status Dosage Famotidine [facility] [address]-76 20 MG Orally Once a day 1 tablet at bedtime Actos [facility] [address]-39 30 MG Orally Once a day 1/[address] [facility] [address]-44 1 GM Orally Twice a day 2 capsules Levothyroxine Sodium [facility] [address]-34 50 MCG Orally Once a day [address] [facility] [address]-29 75 MG Orally Once a day 1 tablet Vitamin D-[address] [facility] [address]-84 5000 UNIT Orally not defined Aspirin [facility] [address]-51 81 MG Orally Once a day 1 tablet Atorvastatin Calcium [facility] [address]-93 40 MG Orally Once a day [address] [facility] [address]-79 25 MG Orally 2 times a day 1 tab q am , 1 tab q noon Citalopram Hydrobromide [facility] [address]-28 40 mg Orally Once a day [address] [facility] [address]-11 10 MG Orally Once a day [address] [facility] [address]-17 20 MG Orally Once a day [address] [facility] [address]-23 10 MG Orally Once a day 1 tablet Magnesium Oxide [facility] [address]-39 400 MG Orally not defined iron ND 0 150 mg Oral 3 times a day 1 tab Vitamin C [facility] [address]-50 1000 MG Orally Once a day [address] [facility] [address]-45 5 mg Orally Once a day 1 tablet Procedures Procedure Coding System Code Date MICROALBUMIN, SEMIQUANT CPT-4 66169 Jan 19, 2016 [facility] VISIT ESTABLISHED PATIENT CPT-4 G0467 Jan 19, 2016 GLYCATED HEMOGLOBIN TEST CPT-4 21700 Jan 19, 2016 Office Visit, Est Pt., Level 3 CPT-4 80946 Jan 19, 2016 Vital Signs Date/Time: Jan 19, 2016 Cardiac Monitoring Heart Rate 80 bpm Weight 150 lbs Height 58.0 in BMI 31.35 Index Blood Pressure Diastolic 80 mmHg Blood Pressure Systolic 132 mmHg Results Name Result Date Reference Range Unit Abnormality Flag A1C (IN HOUSE) ----A1C IN HOUSE 6.9 20160119 4.3 - 5.6 % ----Previous A1c 5.7 20160119 ----Lot [id number] 20160119 ----Exp date 20160119 MICROALBUMIN, URINE (IN HOUSE) ----CRE 100mg/dL 20160119 ----ALB 10mg/L 20160119 ----A:C (IN HOUSE) <30mg/g 20160119 ----Clarity clear 20160119 ----Color yellow 20160119 ----Lot # [id number] ----Exp date 20160119 ----MICROALBUMIN normail 20160119 Summary Purpose [employer] Submission
--- OUTSIDE RECORDS SUMMARY | 2018-03-11 18:58 | XMS REPORT ---
Author TY Russo [employer] Address Unknown Phone Unavailable Care Team Providers Care National Sales Representative Name Role Phone TY GARCIA CP Unavailable Allergies, Adverse Reactions, Alerts Substance Reaction Event Type N.K.D.A. 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 Active Problem S/P cardiac pacemaker procedure Z95.0 Active Problem Essential hypertension I10 Active Problem Depression F32.9 Active Problem Diabetes mellitus with complication E11.8 Active Problem CKD (chronic kidney disease) stage 2, GFR 60-89 ml/min N18.2 Active Problem Microalbuminuria R80.9 Active Problem Hyperlipidemia, unspecified hyperlipidemia E78.5 Active Problem Anemia of renal disease D63.1 Active Assessment 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 Active Assessment Microalbuminuria R80.9 Active Assessment Non morbid obesity due to excess calories E66.09 Active Assessment S/P cardiac pacemaker procedure Z95.0 Active Assessment Hyperlipidemia, unspecified hyperlipidemia E78.5 Active Assessment Depression F32.9 Active Assessment CKD (chronic kidney disease) stage 2, GFR 60-89 ml/min N18.2 Active Assessment Essential hypertension I10 Active Assessment Anemia of renal disease D63.1 Active Assessment Diabetes mellitus with complication E11.8 Active Medications Medication Code System Code Instructions Start Date End Date Status Dosage Vitamin D-3 [facility] [address]-30 5000 UNIT Orally not defined Plavix [facility] [address]-06 75 MG Orally Once a day 1 tablet Citalopram Hydrobromide [facility] [address]-69 40 MG Orally Once a day 1 tablet Lovaza [facility] [address]-36 1 GM Orally Twice a day 2 capsules Furosemide [facility] [address]-30 20 MG Orally Once a day 1 tablet Zetia [facility] [address]-00 10 MG Orally Once a day 1 tablet Levothyroxine Sodium [facility] [address]-86 50 MCG Orally Once a day 1 tablet Loratadine [facility] [address]-79 10 MG Orally Once a day 1 tablet Vitamin C [facility] [address]-76 1000 MG Orally Once a day 1 tablet Magnesium Oxide [facility] [address]-82 400 MG Orally not defined Actos [facility] [address]-36 30 MG Orally Once a day 1/2 tablet Famotidine [facility] [address]-27 20 MG Orally Once a day 1 tablet at bedtime Lisinopril [facility] [address]-55 5 MG Orally Once a day 1 tablet Carvedilol [facility] [address]-20 25 MG Orally 2 times a day 1 tab q am , 1 tab q noon iron NDC 0 Oral 1 tab Atorvastatin Calcium [facility] [address]-32 40 MG Orally Once a day 1 tablet Aspirin [facility] [address]-76 81 MG Orally Once a day 1 tablet Procedures Procedure Coding System Code Date MICROALBUMIN, SEMIQUANT CPT-4 41311 Jan 24, 2015 [facility] NOBLL Jan 24, 2015 GLYCATED HEMOGLOBIN TEST CPT-4 03230 Jan 24, 2015 Office Visit, New Pt., Level 4 CPT-4 31110 Jan 24, 2015 REPLACED BY [facility] VISIT NEW PATIENT CPT-4 G0466 Jan 24, 2015 Vital Signs Date/Time: Jan 24, 2015 Temperature 98.1 F Weight 147.4 lbs Height 58.0 in BMI 30.80 Index Blood Pressure Diastolic 60 mmHg Blood Pressure Systolic 148 mmHg Cardiac Monitoring Heart Rate 64 bpm Results Name Result Date Reference Range Unit Abnormality Flag A1C (IN HOUSE) Summary Purpose [employer] Submission
--- OUTSIDE RECORDS SUMMARY | 2018-03-11 19:00 | XMS REPORT | Continuity of Care Document ---
Author Author [facility] Organization [facility] Address Unknown Phone Unavailable Allergies Active Description Code Type Severity Reaction Onset Reported/Identified Relationship to Patient Clinical Status Yes NO KNOWN DRUG ALLERGIES UNKNOWN NO KNOWN DRUG ALLERG Yes NKANo Known Allergies NKA Miscellaneous Allergy Mild N/A 07/03/2008 Medications Medication Packaging Start Date Stop Date Route Dosage Sig ASPIRIN 81MG CHEWABLE TAB 81 MG (BABY ASPIRIN) MG 03/09/2018 03/09/2018 ONCE&0143 Activase (alteplase) IV recon soln 50mg MG 03/09/2018 03/09/2018 ONCE&0509 CARVEDILOL TAB 25 MG (COREG) MG 03/15/2018 BID&0800,2000 FAMOTIDINE TAB 20 MG (PEPCID) MG 03/15/2018 BID&0800,2000 CLOPIDOGREL TAB 75 MG (PLAVIX) MG 03/09/2018 03/15/2018 Daily&0900 LISINOPRIL TAB 5 MG (ZESTRIL) MG 03/15/2018 Daily&0900 CITALOPRAM TAB 20 MG (CELEXA) MG 03/15/2018 Daily&0900 Ezetimibe (ZETIA) oral tablet 10mg MG 03/09/2018 04/07/2018 QPM&2000 Problems Date Dx Coded Attending Type Code Diagnosis Diagnosed By 10/29/2010 Ot 274.00 GOUTY ARTHROPATHY, UNSPECIFIED 10/29/2010 Ot 414.01 CORONARY ATHEROSCLEROSIS OF [place] CORON 10/29/2010 Ot 715.37 LOC OSTEOARTH NOS-ANKLE 10/29/2010 Ot 735.0 [place] VALGUS 10/29/2010 Ot V58.63 LONG-TERM( CURRENT)USE OF ANTIPLATELET/AN 10/31/2010 Ot 412 OLD MYOCARDIAL INFARCT 10/31/2010 Ot V58.69 OTH MED,LT, CURRENT USE 01/30/2011 Ot 719.41 JOINT PAIN- SHLDER 01/30/2011 Ot V57.1 PHYSICAL THERAPY NEC 10/12/2013 BEENA BRIDGES DO Ot 285.9 ANEMIA NOS 10/12/2013 BEENA BRIDGES DO Ot 403.90 HYPTNSV CHR KID DIS, UNSPEC, W CHR KD ST 10/12/2013 BEENA BRIDGES DO Ot 414.00 CORON ATHEROSCLER NOS TYPE VESSEL, NATIV 10/12/2013 BEENA BRIDGES DO Ot 585.3 CHRONIC KIDNEY DISEASE, STAGE III (MODER 10/12/2013 BEENA BRIDGES DO Ot 729.81 SWELLING OF LIMB 10/12/2013 BEENA BRIDGES DO Ot 782.3 EDEMA 10/12/2013 BEENA BRIDGES DO Ot V45.82 PERCUTANEOUS TRANSLUM CORON ANGIOPLASTY 10/12/2013 BEENA BRIDGES DO Ot V58.69 OT MED,LT,CURRENT USE 10/11/2014 Ot 735.0 10/11/2014 Ot V72.83 10/11/2014 Ot V74.8 10/11/2014 Ot 735.0 10/11/2014 Ot V64.3 10/11/2014 Ot 414.01 10/11/2014 Ot 735.0 10/11/2014 Ot V58.63 10/11/2014 Ot V72.63 11/04/2014 NEWBEENA AXLE AND FRAME MECHANIC-C Ot 244.9 11/04/2014 NEW, BEENA Alejo AXLE AND FRAME MECHANIC-C Ot 250.40 11/04/2014 NEW, BEENA Alejo AXLE AND FRAME MECHANIC-C Ot 263.9 11/04/2014 NEW, BEENA Alejo AXLE AND FRAME MECHANIC-C Ot 268.9 11/04/2014 NEW, BEENA Alejo AXLE AND FRAME MECHANIC-C Ot 272.4 11/04/2014 NEW, BEENA Alejo AXLE AND FRAME MECHANIC-C Ot 276.7 11/04/2014 NEW, BEENA Alejo AXLE AND FRAME MECHANIC-C Ot 285.21 11/04/2014 NEW, BEENA Alejo AXLE AND FRAME MECHANIC-C Ot 404.10 11/04/2014 NEW, BEENA Alejo AXLE AND FRAME MECHANIC-C Ot 414.00 11/04/2014 NEWBEENA AXLE AND FRAME MECHANIC-C Ot 585.3 11/04/2014 NEW, BEENA Alejo AXLE AND FRAME MECHANIC-C Ot 588.81 11/04/2014 BEENA DANIELSON AXLE AND FRAME MECHANIC-C Ot 723.0 11/04/2014 NEW, BEENA Alejo AXLE AND FRAME MECHANIC-C Ot 791.0 11/04/2014 NEW, BEENA Alejo AXLE AND FRAME MECHANIC-C Ot 796.4 03/07/2015 Ot 735.0 03/07/2015 Ot V72.83 03/07/2015 Ot V74.8 03/07/2015 Ot 735.0 03/07/2015 Ot V64.3 03/07/2015 Ot 414.01 03/07/2015 Ot 735.0 03/07/2015 Ot V58.63 03/07/2015 Ot V72.63 03/07/2015 NEW, BEENA Alejo AX[employer] AND [employer] MECHANIC-C Ot 244.9 03/07/2015 NEW, BEENA Alejo AXLE AND FRAME MECHANIC-C Ot 250.40 03/07/2015 NEW, BEENA Alejo AXLE AND FRAME MECHANIC-C Ot 263.9 03/07/2015 NEW, BEENA Alejo AXLE AND FRAME MECHANIC-C Ot 268.9 03/07/2015 NEW, BEENA Alejo AXLE AND FRAME MECHANIC-C Ot 272.4 03/07/2015 NEW, BEENA Alejo AXLE AND FRAME MECHANIC-C Ot 276.7 03/07/2015 NEW, BEENA Alejo AXLE AND FRAME MECHANIC-C Ot 285.21 03/07/2015 NEW, BEENA Alejo AXLE AND FRAME MECHANIC-C Ot 404.10 03/07/2015 NEW, BEENA Alejo AXLE AND FRAME MECHANIC-C Ot 414.00 03/07/2015 NEW, BEENA Alejo AXLE AND FRAME MECHANIC-C Ot 585.3 03/07/2015 NEW, BEENA Alejo AXLE AND FRAME MECHANIC-C Ot 588.81 03/07/2015 NEW, BEENA Alejo AXLE AND FRAME MECHANIC-C Ot 723.0 03/07/2015 NEW, BEENA Alejo AXLE AND FRAME MECHANIC-C Ot 791.0 03/07/2015 NEW, BEENA Alejo AXLE AND FRAME MECHANIC-C Ot 796.4 03/30/2015 NEW, BEENA Alejo AXLE AND FRAME MECHANIC-C Ot D63.1 03/30/2015 NEW, BEENA Alejo AXLE AND FRAME MECHANIC-C Ot D72.819 03/30/2015 NEW, BEENA Alejo AXLE AND FRAME MECHANIC-C Ot E03.9 03/30/2015 NEW, BEENA Alejo AXLE AND FRAME MECHANIC-C Ot E11.29 03/30/2015 NEW, BEENA Alejo AXLE AND FRAME MECHANIC-C Ot E46 03/30/2015 NEW, BEENA Alejo AXLE AND FRAME MECHANIC-C Ot E55.9 03/30/2015 NEW, BEENA Alejo AXLE AND FRAME MECHANIC-C Ot E78.5 03/30/2015 NEW, BEENA Alejo AXLE AND FRAME MECHANIC-C Ot E87.5 03/30/2015 NEW, BEENA Alejo NP-C Ot I13.10 03/30/2015 NEW, BEENA Alejo AX[employer] AND [employer] MECHANIC-C Ot I25.10 03/30/2015 NEW, BEENA Alejo NP-C Ot M48.02 03/30/2015 NEW, BEENA Alejo AXLE AND FRAME MECHANIC-C Ot N18.4 03/30/2015 NEW, BEENA Alejo AXLE AND FRAME MECHANIC-C Ot R80.9 05/28/2015 Ot 735.0 05/28/2015 Ot V72.83 05/28/2015 Ot V74.8 05/28/2015 Ot 735.0 05/28/2015 Ot V64.3 05/28/2015 Ot 414.01 05/28/2015 Ot 735.0 05/28/2015 Ot V58.63 05/28/2015 Ot V72.63 05/28/2015 NEW, BEENA Alejo AXLE AND FRAME MECHANIC-C Ot 244.9 05/28/2015 NEW, BEENA Alejo AXLE AND FRAME MECHANIC-C Ot 250.40 05/28/2015 NEW, BEENA Alejo AXLE AND FRAME MECHANIC-C Ot 263.9 05/28/2015 NEW, BEENA Alejo AXLE AND FRAME MECHANIC-C Ot 268.9 05/28/2015 NEW, BEENA Alejo AXLE AND FRAME MECHANIC-C Ot 272.4 05/28/2015 NEW, BEENA Alejo AXLE AND FRAME MECHANIC-C Ot 276.7 05/28/2015 NEW, BEENA Alejo AXLE AND FRAME MECHANIC-C Ot 285.21 05/28/2015 NEW, BEENA Alejo AXLE AND FRAME MECHANIC-C Ot 404.10 05/28/2015 NEW, BEENA Alejo AXLE AND FRAME MECHANIC-C Ot 414.00 05/28/2015 NEW, BEENA Alejo AXLE AND FRAME MECHANIC-C Ot 585.3 05/28/2015 NEW, BEENA G. AXLE AND FRAME MECHANIC-C Ot 588.81 05/28/2015 NEW, BEENA Alejo AXLE AND FRAME MECHANIC-C Ot 723.0 05/28/2015 NEW, BEENA Alejo AXLE AND FRAME MECHANIC-C Ot 791.0 05/28/2015 NEW, BEENA Alejo AXLE AND FRAME MECHANIC-C Ot 796.4 05/28/2015 NEW, BEENA Alejo AXLE AND FRAME MECHANIC-C Ot D63.1 05/28/2015 NEW, BEENA Alejo AXLE AND FRAME MECHANIC-C Ot D72.819 05/28/2015 NEW, BEENA Alejo AXLE AND FRAME MECHANIC-C Ot E03.9 05/28/2015 NEW, BEENA Alejo AXLE AND FRAME MECHANIC-C Ot E11.29 05/28/2015 NEW, BEENA Alejo AXLE AND FRAME MECHANIC-C Ot E46 05/28/2015 NEW, BEENA Alejo AXLE AND FRAME MECHANIC-C Ot E55.9 05/28/2015 NEW, BEENA Alejo AXLE AND FRAME MECHANIC-C Ot E78.5 05/28/2015 NEW, BEENA Alejo AXLE AND FRAME MECHANIC-C Ot E87.5 05/28/2015 NEW, BEENA Alejo AXLE AND FRAME MECHANIC-C Ot I13.10 05/28/2015 NEW, BEENA Alejo AXLE AND FRAME MECHANIC-C Ot I25.10 05/28/2015 NEW, BEENA Alejo AXLE AND FRAME MECHANIC-C Ot M48.02 05/28/2015 NEW, BEENA Alejo AXLE AND FRAME MECHANIC-C Ot N18.4 05/28/2015 NEW, BEENA Alejo AXLE AND FRAME MECHANIC-C Ot R80.9 05/28/2015 DONNIE CARLTON APRN Ot E11.9 TYPE 2 DIABETES MELLITUS WITHOUT COMPLIC 05/28/2015 DONNIE CARLTON APRN Ot N39.0 URINARY TRACT INFECTION, SITE NOT SPECIF 05/28/2015 DONNIE CARLTON APRN Ot R25.3 FASCICULATION 05/28/2015 DONNIE CARLTON APRN Ot T42.8X5A ADVERSE EFFECT OF ANTIPARKNS DRUG/CENTR 05/28/2015 DONNIE CARLTON APRN Ot Z95.0 PRESENCE OF CARDIAC PACEMAKER 05/28/2015 DONNIE CARLTON APRN Ot Z98.61 CORONARY ANGIOPLASTY STATUS 06/15/2015 DONNIE CARLTON APRN Ot E11.9 06/15/2015 DONNIE CARLTON APRN Ot N39.0 06/15/2015 DONNIE CARLTON APRN Ot R25.3 06/15/2015 DONNIE CARLTON APRN Ot T42.8X5A 06/15/2015 DONNIE CARLTON APRN Ot Z95.0 06/15/2015 DONNIE CARLTON APRN Ot Z98.61 09/25/2015 Ot 735.0 [place] VALGUS 09/25/2015 Ot V72.83 EXAM PRE- OPERATIVE NEC 09/25/2015 Ot V74.8 SCREEN- BACTERIAL DIS NEC 09/25/2015 Ot 735.0 [place] VALGUS 09/25/2015 Ot V64.3 NO PROC FOR REASONS NEC 09/25/2015 Ot 414.01 CORONARY ATHEROSCLEROSIS OF [place] CORON 09/25/2015 Ot 735.0 [place] VALGUS 09/25/2015 Ot V58.63 LONG-TERM( CURRENT)USE OF ANTIPLATELET/AN 09/25/2015 Ot V72.63 PRE- PROCEDURAL LABORATORY EXAMINATION 09/25/2015 BEENA DANIELSON AXLE AND FRAME MECHANIC-C Ot 244.9 HYPOTHYROIDISM NOS 09/25/2015 BEENA DANIELSON AXLE AND FRAME MECHANIC-C Ot 250.40 DIAB W RENAL MANIFEST, TYPE II OR UNSPEC 09/25/2015 BEENA DANIELSON AX[employer] AND FRAME MECHANIC-C Ot 263.9 PROTEIN-ANA MALNUTR NOS 09/25/2015 BEENA DANIELSON AXLE AND FRAME MECHANIC-C Ot 268.9 VITAMIN D DEFICIENCY NOS 09/25/2015 BEENA DANIELSON AXLE AND FRAME MECHANIC-C Ot 272.4 HYPERLIPIDEMIA NEC/NOS 09/25/2015 BEENA DANIELSON AXLE AND FRAME MECHANIC-C Ot 276.7 HYPERPOTASSEMIA 09/25/2015 BEENA DANIELSON AXLE AND FRAME MECHANIC-C Ot 285.21 ANEMIA IN CHRONIC KIDNEY DISEASE 09/25/2015 BEENA DANIELSON AXLE AND FRAME MECHANIC-C Ot 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, BENIGN, 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 09/25/2015 BEENA DANIELSON AXLE AND FRAME MECHANIC-C Ot 414.00 CORON ATHEROSCLER NOS TYPE VESSEL, NATIV 09/25/2015 BEENA DANIELSON AXLE AND FRAME MECHANIC-C Ot 585.3 CHRONIC KIDNEY DISEASE, STAGE III (MODER 09/25/2015 BEENA DANIELSON AXLE AND FRAME MECHANIC-C Ot 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 09/25/2015 BEENA DANIELSON AXLE AND FRAME MECHANIC-C Ot 723.0 CERVICAL SPINAL STENOSIS 09/25/2015 BEENA DANIELSON AXLE AND FRAME MECHANIC-C Ot 791.0 PROTEINURIA 09/25/2015 BEENA DANIELSON AXLE AND FRAME MECHANIC-C Ot 796.4 ABN CLINICAL FINDING NEC 09/25/2015 BEENA DANIELSON AXLE AND FRAME MECHANIC-C Ot D63.1 ANEMIA IN CHRONIC KIDNEY DISEASE 09/25/2015 BEENA DANIELSON AXLE AND FRAME MECHANIC-C Ot D72.819 DECREASED WHITE BLOOD CELL COUNT, UNSPEC 09/25/2015 BEENA DANIELSON AXLE AND FRAME MECHANIC-C Ot E03.9 HYPOTHYROIDISM, UNSPECIFIED 09/25/2015 NEW, BEENA Alejo AXLE AND FRAME MECHANIC-C Ot E11.29 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 09/25/2015 NEW, BEENA Alejo AXLE AND FRAME MECHANIC-C Ot E46 UNSPECIFIED PROTEIN-CALORIE MALNUTRITION 09/25/2015 NEW, BEENA Alejo AXLE AND FRAME MECHANIC-C Ot E55.9 VITAMIN D DEFICIENCY, UNSPECIFIED 09/25/2015 NEW, BEENA Alejo AXLE AND FRAME MECHANIC-C Ot E78.5 HYPERLIPIDEMIA, UNSPECIFIED 09/25/2015 NEW, BEENA Alejo AXLE AND FRAME MECHANIC-C Ot E87.5 HYPERKALEMIA 09/25/2015 NEW, BEENA Alejo AXLE AND FRAME MECHANIC-C Ot 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, W S 09/25/2015 NEW, BEENA Alejo AXLE AND FRAME MECHANIC-C Ot I25.10 ATHSCL HEART DISEASE OF [place] CORONARY 09/25/2015 NEW, BEENA Alejo AXLE AND FRAME MECHANIC-C Ot M48.02 SPINAL STENOSIS, CERVICAL REGION 09/25/2015 NEW, BEENA Alejo AXLE AND FRAME MECHANIC-C Ot N18.4 CHRONIC KIDNEY DISEASE, STAGE 4 (SEVERE) 09/25/2015 NEW, BEENA Alejo AXLE AND FRAME MECHANIC-C Ot R80.9 PROTEINURIA, UNSPECIFIED 09/26/2015 NEW, BEENA Alejo AXLE AND FRAME MECHANIC-C Ot D63.1 ANEMIA IN CHRONIC KIDNEY DISEASE 09/26/2015 NEW, BEENA Alejo AXLE AND FRAME MECHANIC-C Ot D72.819 DECREASED WHITE BLOOD CELL COUNT, UNSPEC 09/26/2015 NEW, BEENA Alejo NP-C Ot E03.9 HYPOTHYROIDISM, UNSPECIFIED 09/26/2015 NEW, BEENA Alejo AXLE AND FRAME MECHANIC-C Ot 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 AXLE AND FRAME MECHANIC-C Ot I25.10 ATHSCL HEART DISEASE OF [place] CORONARY 09/26/2015 NEW, BEENA MahoneySheree AXLE AND FRAME MECHANIC-C Ot M48.02 SPINAL STENOSIS, CERVICAL REGION 09/26/2015 NEW, BEENA G. AXLE AND FRAME MECHANIC-C Ot N18.4 CHRONIC KIDNEY DISEASE, STAGE 4 (SEVERE) 09/26/2015 NEW, BEENA Alejo AXLE AND FRAME MECHANIC-C Ot 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 09/26/2015 NEW, BEENA GSheree AXLE AND FRAME MECHANIC-C Ot R80.9 PROTEINURIA, UNSPECIFIED 09/27/2015 NEW, BEENA MahoneySheree AXLE AND FRAME MECHANIC-C Ot D63.1 ANEMIA IN CHRONIC KIDNEY DISEASE 09/27/2015 NEW, BEENA GSheree AXLE AND FRAME MECHANIC-C Ot D72.819 DECREASED WHITE BLOOD CELL COUNT, UNSPEC 09/27/2015 NEW, BEENA GSheree AXLE AND FRAME MECHANIC-C Ot E03.9 HYPOTHYROIDISM, UNSPECIFIED 09/27/2015 NEW, BEENA MaruSheree AXLE AND FRAME MECHANIC-C Ot 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 09/27/2015 NEW, BEENA MaruSheree AXLE AND FRAME MECHANIC-C Ot E46 UNSPECIFIED PROTEIN-CALORIE MALNUTRITION 09/27/2015 NEW, BEENA GSheree AXLE AND FRAME MECHANIC-C Ot E55.9 VITAMIN D DEFICIENCY, UNSPECIFIED 09/27/2015 NEW, BEENA GSheree AXLE AND FRAME MECHANIC-C Ot E78.5 HYPERLIPIDEMIA, UNSPECIFIED 09/27/2015 NEW, BEENA MahoneySheree AXLE AND FRAME MECHANIC-C Ot E87.5 HYPERKALEMIA 09/27/2015 NEW, BEENA MahoneySheree AXLE AND FRAME MECHANIC-C Ot 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, W S 09/27/2015 NEW, BEENA MaruSheree AXLE AND FRAME MECHANIC-C Ot I25.10 ATHSCL HEART DISEASE OF [place] CORONARY 09/27/2015 NEW, BEENA GSheree AXLE AND FRAME MECHANIC-C Ot M48.02 SPINAL STENOSIS, CERVICAL REGION 09/27/2015 NEW, BEENA GSheree AXLE AND FRAME MECHANIC-C Ot 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 09/27/2015 NEW, BEENA GSheree AXLE AND FRAME MECHANIC-C Ot R80.9 PROTEINURIA, UNSPECIFIED 10/02/2015 NEW, BEENA MaruSheree AXLE AND FRAME MECHANIC-C Ot E11.29 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 10/02/2015 NEW, BEENA MaruSheree AXLE AND FRAME MECHANIC-C Ot N18.4 CHRONIC KIDNEY DISEASE, STAGE 4 (SEVERE) 10/31/2015 NEW, BEENA Alejo AXLE AND FRAME MECHANIC-C Ot D63.1 ANEMIA IN CHRONIC KIDNEY DISEASE 10/31/2015 NEW, BEENA Alejo AXLE AND FRAME MECHANIC-C Ot D72.819 DECREASED WHITE BLOOD CELL COUNT, UNSPEC 10/31/2015 NEW, BEENA Alejo AXLE AND FRAME MECHANIC-C Ot E03.9 HYPOTHYROIDISM, UNSPECIFIED 10/31/2015 NEW, BEENA Alejo AXLE AND FRAME MECHANIC-C Ot 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 10/31/2015 NEW, BEENA MahoneySheree AXLE AND FRAME MECHANIC-C Ot E46 UNSPECIFIED PROTEIN-CALORIE MALNUTRITION 10/31/2015 NEW, BEENA Alejo AXLE AND FRAME MECHANIC-C Ot E55.9 VITAMIN D DEFICIENCY, UNSPECIFIED 10/31/2015 NEW, BEENA Alejo AXLE AND FRAME MECHANIC-C Ot E78.5 HYPERLIPIDEMIA, UNSPECIFIED 10/31/2015 NEW, BEENA Alejo AXLE AND FRAME MECHANIC-C Ot E87.5 HYPERKALEMIA 10/31/2015 NEW, BEENA Alejo AXLE AND FRAME MECHANIC-C Ot 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, W S 10/31/2015 NEW, BEENA MahoneySheree AXLE AND FRAME MECHANIC-C Ot I25.10 ATHSCL HEART DISEASE OF [place] CORONARY 10/31/2015 NEW, BEENA Alejo AXLE AND FRAME MECHANIC-C Ot M48.02 SPINAL STENOSIS, CERVICAL REGION 10/31/2015 NEW, BEENA Alejo AXLE AND FRAME MECHANIC-C Ot N18.4 CHRONIC KIDNEY DISEASE, STAGE 4 (SEVERE) 10/31/2015 NEW, BEENA Alejo AXLE AND FRAME MECHANIC-C Ot 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 10/31/2015 NEW, BEENA GSheree AXLE AND FRAME MECHANIC-C Ot R80.9 PROTEINURIA, UNSPECIFIED 12/24/2015 NEW, BEENA MahoneySheree AXLE AND FRAME MECHANIC-C Ot D63.1 ANEMIA IN CHRONIC KIDNEY DISEASE 12/24/2015 NEW, BEENA Alejo AXLE AND FRAME MECHANIC-C Ot D72.819 DECREASED WHITE BLOOD CELL COUNT, UNSPEC 12/24/2015 NEW, BEENA GSheree AXLE AND FRAME MECHANIC-C Ot E03.9 HYPOTHYROIDISM, UNSPECIFIED 12/24/2015 NEW, BEENA MahoneySheree AXLE AND FRAME MECHANIC-C Ot 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 12/24/2015 NEW, BEENA Alejo AXLE AND FRAME MECHANIC-C Ot E46 UNSPECIFIED PROTEIN-CALORIE MALNUTRITION 12/24/2015 NEW, BEENA MahoneySheree AXLE AND FRAME MECHANIC-C Ot E55.9 VITAMIN D DEFICIENCY, UNSPECIFIED 12/24/2015 NEW, BEENA Alejo NP-C Ot E78.5 HYPERLIPIDEMIA, UNSPECIFIED 12/24/2015 NEW, BEENA Alejo AXLE AND FRAME MECHANIC-C Ot E87.5 HYPERKALEMIA 12/24/2015 BEENA DANIELSON AXLE AND FRAME MECHANIC-C Ot 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, W S 12/24/2015 BEENA DANIELSON NP-C Ot I25.10 ATHSCL HEART DISEASE OF [place] CORONARY 12/24/2015 NEW, BEENA Alejo AXLE AND FRAME MECHANIC-C Ot M48.02 SPINAL STENOSIS, CERVICAL REGION 12/24/2015 NEW, BEENA Alejo AXLE AND FRAME MECHANIC-C Ot N18.4 CHRONIC KIDNEY DISEASE, STAGE 4 (SEVERE) 12/24/2015 NEW, BEENA Alejo NP-C Ot 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 12/24/2015 BEENA DANIELSON AXLE AND FRAME MECHANIC-C Ot R80.9 PROTEINURIA, UNSPECIFIED 03/27/2016 Ot 414.01 CORONARY ATHEROSCLEROSIS OF [place] CORON 03/27/2016 Ot 735.0 H[place]UX VALGUS 03/27/2016 Ot V58.63 LONG-TERM( CURRENT)USE OF ANTIPLATELET/AN 03/27/2016 Ot V72.63 PRE- PROCEDURAL LABORATORY EXAMINATION 03/27/2016 BEENA DANIELSON AXLE AND FRAME MECHANIC-C Ot 244.9 HYPOTHYROIDISM NOS 03/27/2016 JAGJIT, BEENA Alejo AXLE AND FRAME MECHANIC-C Ot 250.40 DIAB W RENAL MANIFEST, TYPE II OR UNSPEC 03/27/2016 BEENA DANILESON AXLE AND FRAME MECHANIC-C Ot 263.9 PROTEIN-ANA MALNUTR NOS 03/27/2016 BEENA DANIELSON AXLE AND FRAME MECHANIC-C Ot 268.9 VITAMIN D DEFICIENCY NOS 03/27/2016 JAGJIT, BEENA Alejo AXLE AND FRAME MECHANIC-C Ot 272.4 HYPERLIPIDEMIA NEC/NOS 03/27/2016 NEW, BEENA Alejo AXLE AND FRAME MECHANIC-C Ot 276.7 HYPERPOTASSEMIA 03/27/2016 JAGJIT, BEENA Aeljo AXLE AND FRAME MECHANIC-C Ot 285.21 ANEMIA IN CHRONIC KIDNEY DISEASE 03/27/2016 JAGJIT, BEENA Alejo AXLE AND FRAME MECHANIC-C Ot 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, BENIGN, 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 03/27/2016 JAGJIT, BEENA Alejo AXLE AND FRAME MECHANIC-C Ot 414.00 CORON ATHEROSCLER NOS TYPE VESSEL, NATIV 03/27/2016 JAGJIT, BEENA Alejo AXLE AND FRAME MECHANIC-C Ot 585.3 CHRONIC KIDNEY DISEASE, STAGE III (MODER 03/27/2016 NEWBEENA AXLE AND FRAME MECHANIC-C Ot 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 03/27/2016 BEENA DANIELSON AXLE AND FRAME MECHANIC-C Ot 723.0 CERVICAL SPINAL STENOSIS 03/27/2016 BEENA DANIELSON AXLE AND FRAME MECHANIC-C Ot 791.0 PROTEINURIA 03/27/2016 BEENA DANIELSON AXLE AND FRAME MECHANIC-C Ot 796.4 ABN CLINICAL FINDING NEC 03/27/2016 BEENA DANIELSON AXLE AND FRAME MECHANIC-C Ot D63.1 ANEMIA IN CHRONIC KIDNEY DISEASE 03/27/2016 BEENA DANIELSON AXLE AND FRAME MECHANIC-C Ot D72.819 DECREASED WHITE BLOOD CELL COUNT, UNSPEC 03/27/2016 BEENA DANIELSON AXLE AND FRAME MECHANIC-C Ot E03.9 HYPOTHYROIDISM, UNSPECIFIED 03/27/2016 BEENA DANIELSON AXLE AND FRAME MECHANIC-C Ot E11.29 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 03/27/2016 BEENA DANIELSON AXLE AND FRAME MECHANIC-C Ot E46 UNSPECIFIED PROTEIN-CALORIE MALNUTRITION 03/27/2016 BEENA DANIELSON AXLE AND FRAME MECHANIC-C Ot E55.9 VITAMIN D DEFICIENCY, UNSPECIFIED 03/27/2016 BEENA DANIELSON AXLE AND FRAME MECHANIC-C Ot E78.5 HYPERLIPIDEMIA, UNSPECIFIED 03/27/2016 BEENA DANIELSON AXLE AND FRAME MECHANIC-C Ot E87.5 HYPERKALEMIA 03/27/2016 BEENA DANIELSON AXLE AND FRAME MECHANIC-C Ot 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, W S 03/27/2016 BEENA DANIELSON AXLE AND FRAME MECHANIC-C Ot I25.10 ATHSCL HEART DISEASE OF [place] CORONARY 03/27/2016 BEENA DANIELSON AXLE AND FRAME MECHANIC-C Ot M48.02 SPINAL STENOSIS, CERVICAL REGION 03/27/2016 BEENA DANIELSON AXLE AND FRAME MECHANIC-C Ot N18.4 CHRONIC KIDNEY DISEASE, STAGE 4 (SEVERE) 03/27/2016 BEENA DANIELSON AXLE AND FRAME MECHANIC-C Ot R80.9 PROTEINURIA, UNSPECIFIED 03/27/2016 BEENA DANIELSON AXLE AND FRAME MECHANIC-C Ot D63.1 ANEMIA IN CHRONIC KIDNEY DISEASE 03/27/2016 BEENA DANIELSON AXLE AND FRAME MECHANIC-C Ot D72.819 DECREASED WHITE BLOOD CELL COUNT, UNSPEC 03/27/2016 BEENA DANIELSON AXLE AND FRAME MECHANIC-C Ot E03.9 HYPOTHYROIDISM, UNSPECIFIED 03/27/2016 NEW, BEENA Alejo AXLE AND FRAME MECHANIC-C Ot 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 03/27/2016 NEW, BEENA Alejo AXLE AND FRAME MECHANIC-C Ot E46 UNSPECIFIED PROTEIN-CALORIE MALNUTRITION 03/27/2016 NEW, BEENA Alejo AXLE AND FRAME MECHANIC-C Ot E55.9 VITAMIN D DEFICIENCY, UNSPECIFIED 03/27/2016 NEW, BEENA MahoneySheree AXLE AND FRAME MECHANIC-C Ot E78.5 HYPERLIPIDEMIA, UNSPECIFIED 03/27/2016 NEW, BEENA MahoneySheree AXLE AND FRAME MECHANIC-C Ot E87.5 HYPERKALEMIA 03/27/2016 NEW, BEENA MahoneySheree AXLE AND FRAME MECHANIC-C Ot 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, W S 03/27/2016 NEW, BEENA MahoneySheree AXLE AND FRAME MECHANIC-C Ot I25.10 ATHSCL HEART DISEASE OF [place] CORONARY 03/27/2016 NEW, BEENA MahoneySheree AXLE AND FRAME MECHANIC-C Ot M48.02 SPINAL STENOSIS, CERVICAL REGION 03/27/2016 NEW, BEENA GSheree AXLE AND FRAME MECHANIC-C Ot 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 03/27/2016 NEW, BEENA MahoneySheree AXLE AND FRAME MECHANIC-C Ot R80.9 PROTEINURIA, UNSPECIFIED 03/27/2016 NEW, BEENA Alejo AXLE AND FRAME MECHANIC-C Ot D63.1 ANEMIA IN CHRONIC KIDNEY DISEASE 03/27/2016 NEW, BEENA Alejo AXLE AND FRAME MECHANIC-C Ot D72.819 DECREASED WHITE BLOOD CELL COUNT, UNSPEC 03/27/2016 NEW, BEENA Alejo AXLE AND FRAME MECHANIC-C Ot E03.9 HYPOTHYROIDISM, UNSPECIFIED 03/27/2016 NEW, BEENA MahoneySheree AXLE AND FRAME MECHANIC-C Ot 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 03/27/2016 NEW, BEENA MahoneySheree AXLE AND FRAME MECHANIC-C Ot E46 UNSPECIFIED PROTEIN-[place] MALNUTRITION 03/27/2016 NEW, BEENA MahoneySheree AXLE AND FRAME MECHANIC-C Ot E55.9 VITAMIN D DEFICIENCY, UNSPECIFIED 03/27/2016 NEW, BEENA GSheree AXLE AND FRAME MECHANIC-C Ot E78.5 HYPERLIPIDEMIA, UNSPECIFIED 03/27/2016 NEW, BEENA MahoneySheree AXLE AND FRAME MECHANIC-C Ot E87.5 HYPERKALEMIA 03/27/2016 NEW, BEENA MahoneySheree AXLE AND FRAME MECHANIC-C Ot 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, W S 03/27/2016 NEW, BEENA MahoneySheree AXLE AND FRAME MECHANIC-C Ot I25.10 ATHSCL HEART DISEASE OF [place] CORONARY 03/27/2016 NEW, BEENA Alejo AXLE AND FRAME MECHANIC-C Ot M48.02 SPINAL STENOSIS, CERVICAL REGION 03/27/2016 NEW, BEENA MahoneySheree AXLE AND FRAME MECHANIC-C Ot N18.4 CHRONIC KIDNEY DISEASE, STAGE 4 (SEVERE) 03/27/2016 NEW, BEENA GSheree AXLE AND FRAME MECHANIC-C Ot 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 03/27/2016 NEW, BEENA GSheere AXLE AND FRAME MECHANIC-C Ot R80.9 PROTEINURIA, UNSPECIFIED 03/29/2016 NEW, BEENA Mahoney. AXLE AND FRAME MECHANIC-C Ot D50.9 IRON DEFICIENCY ANEMIA, UNSPECIFIED 03/29/2016 NEW, BEENA GSheree AXLE AND FRAME MECHANIC-C Ot D63.1 ANEMIA IN CHRONIC KIDNEY DISEASE 03/29/2016 NEW, BEENA GSheree AXLE AND FRAME MECHANIC-C Ot N18.3 CHRONIC KIDNEY DISEASE, STAGE 3 (MODERAT 04/01/2016 NEW, BEENA Alejo AXLE AND FRAME MECHANIC-C Ot D50.9 IRON DEFICIENCY ANEMIA, UNSPECIFIED 04/01/2016 NEW, BEENA MaruSheree AXLE AND FRAME MECHANIC-C Ot D63.1 ANEMIA IN CHRONIC KIDNEY DISEASE 04/01/2016 NEW, BEENA MahoneySheree AXLE AND FRAME MECHANIC-C Ot N18.3 CHRONIC KIDNEY DISEASE, STAGE 3 (MODERAT 04/03/2016 NEW, BEENA G. AXLE AND FRAME MECHANIC-C Ot D50.9 IRON DEFICIENCY ANEMIA, UNSPECIFIED 04/03/2016 NEW, BEENA Maru. AXLE AND FRAME MECHANIC-C Ot D63.1 ANEMIA IN CHRONIC KIDNEY DISEASE 04/03/2016 NEW, BEENA GSheree AXLE AND FRAME MECHANIC-C Ot N18.3 CHRONIC KIDNEY DISEASE, STAGE 3 (MODERAT 04/03/2016 NEW, BEENA Maru. AXLE AND FRAME MECHANIC-C Ot D50.9 IRON DEFICIENCY ANEMIA, UNSPECIFIED 04/03/2016 NEW, BEENA G. AXLE AND FRAME MECHANIC-C Ot D63.1 ANEMIA IN CHRONIC KIDNEY DISEASE 04/03/2016 NEW, BEENA G. AXLE AND FRAME MECHANIC-C Ot N18.3 CHRONIC KIDNEY DISEASE, STAGE 3 (MODERAT 04/05/2016 NEW, BEENA G. AXLE AND FRAME MECHANIC-C Ot D50.9 IRON DEFICIENCY ANEMIA, UNSPECIFIED 04/05/2016 NEW, BEENA G. AXLE AND FRAME MECHANIC-C Ot D63.1 ANEMIA IN CHRONIC KIDNEY DISEASE 04/05/2016 NEW, BEENA GSheree AXLE AND FRAME MECHANIC-C Ot N18.3 CHRONIC KIDNEY DISEASE, STAGE 3 (MODERAT 05/06/2016 NEW, BEENA G. AXLE AND FRAME MECHANIC-C Ot D50.9 IRON DEFICIENCY ANEMIA, UNSPECIFIED 05/06/2016 NEW, BEENA Alejo AXLE AND FRAME MECHANIC-C Ot D63.1 ANEMIA IN CHRONIC KIDNEY DISEASE 05/06/2016 NEW, BEENA Alejo AXLE AND FRAME MECHANIC-C Ot N18.3 CHRONIC KIDNEY DISEASE, STAGE 3 (MODERAT 06/25/2016 NEW, BEENA Alejo AXLE AND FRAME MECHANIC-C Ot D50.9 IRON DEFICIENCY ANEMIA, UNSPECIFIED 06/25/2016 NEW, BEENA Alejo AXLE AND FRAME MECHANIC-C Ot D63.1 ANEMIA IN CHRONIC KIDNEY DISEASE 06/25/2016 NEW, BEENA Alejo AXLE AND FRAME MECHANIC-C Ot N18.3 CHRONIC KIDNEY DISEASE, STAGE 3 (MODERAT 08/18/2016 NEW, BEENA Alejo AXLE AND FRAME MECHANIC-C Ot D63.1 ANEMIA IN CHRONIC KIDNEY DISEASE 08/18/2016 NEW, BEENA Alejo [employer] MECH[employer]IC-C Ot D72.819 DECREASED WHITE BLOOD CELL COUNT, UNSPEC 08/18/2016 NEW, BEENA Alejo [employer] MECH[employer]IC-C Ot E03.9 HYPOTHYROIDISM, UNSPECIFIED 08/18/2016 NEW, BEENA Alejo [employer] MECH[employer]IC-C Ot E11.29 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 08/18/2016 NEW, BEENA Alejo [employer] MECH[employer]IC-C Ot E46 UNSPECIFIED PROTEIN-CALORIE MALNUTRITION 08/18/2016 NEW, BEENA Alejo [employer] MECH[employer]IC-C Ot E55.9 VITAMIN D DEFICIENCY, UNSPECIFIED 08/18/2016 NEW, BEENA Alejo [employer] MECH[employer]IC-C Ot E78.5 HYPERLIPIDEMIA, UNSPECIFIED 08/18/2016 NEW, BEENA Alejo [employer] MECH[employer]IC-C Ot E87.5 HYPERKALEMIA 08/18/2016 NEW, BEENA MahoneySheree [employer] MECHANIC-C Ot 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1 ANEMIA IN CHRONIC KIDNEY DISEASE 08/18/2016 NEW, BEENA Alejo [employer] MECH[employer]IC-C Ot D72.819 DECREASED WHITE BLOOD CELL COUNT, UNSPEC 08/18/2016 NEW, BEENA Alejo [employer] MECH[employer]IC-C Ot E03.9 HYPOTHYROIDISM, UNSPECIFIED 08/18/2016 NEW, BEENA Alejo [employer] MECH[employer]IC-C Ot E11.29 TYPE 2 DIABETES MELLITUS W [facility] DIABETIC 08/18/2016 NEW, BEENA Alejo [employer] MECHANIC-C Ot E46 UNSPECIFIED PROTEIN-CALORIE MALNUTRITION 08/18/2016 NEW, BEENA Alejo [employer] MECH[employer]IC-C Ot E55.9 VITAMIN D DEFICIENCY, UNSPECIFIED 08/18/2016 NEW, BEENA Alejo [employer] MECH[employer]IC-C Ot E78.5 HYPERLIPIDEMIA, UNSPECIFIED 08/18/2016 NEW, BEENA Alejo [employer] MECH[employer]IC-C Ot E87.5 HYPERKALEMIA 08/18/2016 NEW, BEENA Alejo [employer] MECH[employer]IC-C Ot 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, W S 08/18/2016 NEW, BEENA Alejo [employer] MECH[employer]IC-C Ot I25.10 ATHSCL HEART DISEASE OF [place] CORONARY 08/18/2016 NEW, BEENA Alejo [employer] MECH[employer]IC-C Ot M48.02 SPINAL STENOSIS, CERVICAL REGION 08/18/2016 NEW, BEENA Alejo [employer] MECHANIC-C Ot N18.4 CHRONIC KIDNEY DISEASE, STAGE 4 (SEVERE) 08/18/2016 NEW, BEENA Alejo [employer] MECHANIC-C Ot 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 08/18/2016 NEW, BEENA Alejo [employer] MECHANIC-C Ot R80.9 PROTEINURIA, UNSPECIFIED 09/06/2016 NEW, BEENA Alejo [employer] MECH[employer]IC-C Ot D63.1 ANEMIA IN CHRONIC KIDNEY DISEASE 09/06/2016 NEW, BEENA Alejo [employer] MECH[employer]IC-C Ot D72.819 DECREASED WHITE BLOOD CELL COUNT, UNSPEC 09/06/2016 NEW, BEENA Alejo [employer] MECH[employer]IC-C Ot E03.9 HYPOTHYROIDISM, UNSPECIFIED 09/06/2016 NEW, BEENA Alejo [employer] MECHANIC-C Ot E11.29 TYPE 2 DIABETES MELLITUS W [facility] DIABETIC 09/06/2016 NEW, BEENA Alejo [employer] MECHANIC-C Ot E46 UNSPECIFIED PROTEIN-CALORIE MALNUTRITION 09/06/2016 NEW, BEENA Alejo [employer] MECH[employer]IC-C Ot E55.9 VITAMIN D DEFICIENCY, UNSPECIFIED 09/06/2016 NEW, BEENA MaruSheree [employer] MECHANIC-C Ot E78.5 HYPERLIPIDEMIA, UNSPECIFIED 09/06/2016 NEW, BEENA MaruSheree [employer] MECHANIC-C Ot E87.5 HYPERKALEMIA 09/06/2016 NEW, BEENA MaruSheree [employer] MECHANIC-C Ot 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, W S 09/06/2016 NEW, BEENA MaruSheree [employer] MECHANIC-C Ot I25.10 ATHSCL HEART DISEASE OF [place] CORONARY 09/06/2016 NEW, BEENA Alejo [employer] MECHANIC-C Ot M48.02 SPINAL STENOSIS, CERVICAL REGION 09/06/2016 NEW, BEENA MaruSheree [employer] MECHANIC-C Ot N18.4 CHRONIC KIDNEY DISEASE, STAGE 4 (SEVERE) 09/06/2016 NEW, BEENA Alejo [employer] MECHANIC-C Ot 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 09/06/2016 NEW, BEENA MaruSheree [employer] MECHANIC-C Ot R80.9 PROTEINURIA, UNSPECIFIED 03/21/2017 NEW, BEENA Alejo [employer] MECHANIC-C Ot 244.9 HYPOTHYROIDISM NOS 03/21/2017 NEW, BEENA Alejo [employer] MECHANIC-C Ot 250.40 DIAB W RENAL MANIFEST, TYPE II OR UNSPEC 03/21/2017 NEW, BEENA Maru. [employer] MECHANIC-C Ot 263.9 PROTEIN-ANA MALNUTR NOS 03/21/2017 NEW, BEENA Maru. [employer] MECHANIC-C Ot 268.9 VITAMIN D DEFICIENCY NOS 03/21/2017 NEW, BEENA MaruSheree [employer] MECHANIC-C Ot 272.4 HYPERLIPIDEMIA NEC/NOS 03/21/2017 NEW, BEENA Mahoney. 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 [employer] MECHANIC-C Ot 414.00 CORON ATHEROSCLER NOS TYPE VESSEL, NATIV 03/21/2017 NEW, BEENA Alejo [employer] MECHANIC-C Ot 585.3 CHRONIC KIDNEY DISEASE, STAGE III (MODER 03/21/2017 NEW, BEENA Alejo [employer] MECH[employer]IC-C Ot 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 03/21/2017 NEW, BEENA Alejo [employer] MECHANIC-C Ot 723.0 CERVICAL SPINAL STENOSIS 03/21/2017 NEW, BEENA MaruSheree [employer] MECHANIC-C Ot 791.0 PROTEINURIA 03/21/2017 NEW, BEENA MaruSheree [employer] MECHANIC-C Ot 796.4 ABN CLINICAL FINDING NEC 03/21/2017 NEW, BEENA MaruSheree [employer] MECHANIC-C Ot D63.1 ANEMIA IN CHRONIC KIDNEY DISEASE 03/21/2017 NEW, BEENA GSheree [employer] AND [employer]AME MECHANIC-C Ot D72.819 DECREASED WHITE BLOOD CELL COUNT, UNSPEC 03/21/2017 NEW, BEENA MaruSheree [employer] MECHANIC-C Ot E03.9 HYPOTHYROIDISM, UNSPECIFIED 03/21/2017 NEW, BEENA MaruSheree [employer] MECHANIC-C Ot E11.29 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 03/21/2017 NEW, BEENA MaruSheree [employer] MECHANIC-C Ot E46 UNSPECIFIED PROTEIN-CALORIE MALNUTRITION 03/21/2017 NEW, BEENA MaruSheree [employer] MECHANIC-C Ot E55.9 VITAMIN D DEFICIENCY, UNSPECIFIED 03/21/2017 NEW, BEENA MaruSheree [employer] MECHANIC-C Ot E78.5 HYPERLIPIDEMIA, UNSPECIFIED 03/21/2017 NEW, BEENA MaruSheree [employer] MECHANIC-C Ot E87.5 HYPERKALEMIA 03/21/2017 NEW, BEENA MaruSheree [employer] MECHANIC-C Ot 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, W S 03/21/2017 NEW, BEENA MaruSheree [employer] MECHANIC-C Ot I25.10 ATHSCL HEART DISEASE OF [place] CORONARY 03/21/2017 NEW, BEENA MaruSheree [employer] MECHANIC-C Ot M48.02 SPINAL STENOSIS, CERVICAL REGION 03/21/2017 NEW, BEENA MaruSheree [employer] MECHANIC-C Ot N18.4 CHRONIC KIDNEY DISEASE, STAGE 4 (SEVERE) 03/21/2017 NEW, BEENA MaruSheree [employer] MECHANIC-C Ot R80.9 PROTEINURIA, UNSPECIFIED 03/21/2017 NEW, BEENA MaruSheree [employer] MECHANIC-C Ot D63.1 ANEMIA IN CHRONIC KIDNEY DISEASE 03/21/2017 NEW, BEENA MaruSheree [employer] MECHANIC-C Ot D72.819 DECREASED WHITE BLOOD CELL COUNT, UNSPEC 03/21/2017 NEW, BEENA MaruSheree [employer] MECHANIC-C Ot E03.9 HYPOTHYROIDISM, UNSPECIFIED 03/21/2017 NEW, BEENA Alejo [employer] MECHANIC-C Ot 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 03/21/2017 NEW, BEENA Alejo [employer] MECHANIC-C Ot E46 UNSPECIFIED PROTEIN-CALORIE MALNUTRITION 03/21/2017 NEW, BEENA MahoneySheree AX[employer] AND [employer]AME MECHANIC-C Ot E55.9 VITAMIN D DEFICIENCY, UNSPECIFIED 03/21/2017 NEW, BEENA Alejo [employer] MECHANIC-C Ot E78.5 HYPERLIPIDEMIA, UNSPECIFIED 03/21/2017 NEW, BEENA Alejo [employer] MECHANIC-C Ot E87.5 HYPERKALEMIA 03/21/2017 NEW, BEENA Alejo [employer] MECHANIC-C Ot 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, W S 03/21/2017 NEW, BEENA MahoneySheree AX[employer] AND [employer]AME MECHANIC-C Ot I25.10 ATHSCL HEART DISEASE OF [place] CORONARY 03/21/2017 NEW, BEENA MahoneySheree [employer] MECHANIC-C Ot M48.02 SPINAL STENOSIS, CERVICAL REGION 03/21/2017 NEW, BEENA MahoneySehree AXLE AND FRAME MECHANIC-C Ot 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 03/21/2017 NEW, BEENA MahoneySheree AXLE AND [employer]AME MECHANIC-C Ot R80.9 PROTEINURIA, UNSPECIFIED 03/21/2017 NEW, BEENA MahoneySheree AX[employer] AND [employer]AME MECHANIC-C Ot D63.1 ANEMIA IN CHRONIC KIDNEY DISEASE 03/21/2017 NEW, BEENA MahoneySheree AXLE AND [employer]AME MECHANIC-C Ot D72.819 DECREASED WHITE BLOOD CELL COUNT, UNSPEC 03/21/2017 NEW, BEENA MahoneySheree AXLE AND [employer]AME MECHANIC-C Ot E03.9 HYPOTHYROIDISM, UNSPECIFIED 03/21/2017 NEW, BEENA Alejo AX[employer] MECHANIC-C Ot 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 03/21/2017 NEW, BEENA MahoneySheree AX[employer] AND [employer]AME MECHANIC-C Ot E46 UNSPECIFIED PROTEIN-CALORIE MALNUTRITION 03/21/2017 NEW, BEENA MahoneySheree AXLE AND FRAME MECHANIC-C Ot E55.9 VITAMIN D DEFICIENCY, UNSPECIFIED 03/21/2017 NEW, BEENA MahoneySheree [employer] AND [employer] MECHANIC-C Ot E78.5 HYPERLIPIDEMIA, UNSPECIFIED 03/21/2017 NEW, BEENA MahoneySheree AX[employer] AND [employer]AME MECHANIC-C Ot E87.5 HYPERKALEMIA 03/21/2017 NEW, BEENA MahoneySheree AX[employer] AND [employer] MECHANIC-C Ot 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1 ANEMIA IN CHRONIC KIDNEY DISEASE 03/21/2017 NEW, BEENA Alejo AX[employer] AND [employer] MECHANIC-C Ot D72.819 DECREASED WHITE BLOOD CELL COUNT, UNSPEC 03/21/2017 NEW, BEENA GSheree AXLE AND FRAME MECHANIC-C Ot E03.9 HYPOTHYROIDISM, UNSPECIFIED 03/21/2017 NEW, BEENA GSheree AX[employer] AND FRAME MECHANIC-C Ot E11.29 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 03/21/2017 NEW, BEENA MaruSheree AXLE AND FRAME MECHANIC-C Ot E46 UNSPECIFIED PROTEIN-CALORIE MALNUTRITION 03/21/2017 NEW, BEENA MahoneySheree AXLE AND FRAME MECHANIC-C Ot E55.9 VITAMIN D DEFICIENCY, UNSPECIFIED 03/21/2017 NEW, BEENA GSheree AX[employer] AND [employer] MECHANIC-C Ot E78.5 HYPERLIPIDEMIA, UNSPECIFIED 03/21/2017 NEW, BEENA MahoneySheree AXLE AND [employer]AME MECHANIC-C Ot E87.5 HYPERKALEMIA 03/21/2017 NEW, BEENA MahoneySheree [employer] AND [employer] MECHANIC-C Ot 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, W S 03/21/2017 NEW, BEENA MahoneySheree AX[employer] AND [employer] MECHANIC-C Ot I25.10 ATHSCL HEART DISEASE OF [place] CORONARY 03/21/2017 NEW, BEENA MahoneySheree AXLE AND FRAME MECHANIC-C Ot M48.02 SPINAL STENOSIS, CERVICAL REGION 03/21/2017 NEW, BEENA MaruSheree AXLE AND FRAME MECHANIC-C Ot N18.4 CHRONIC KIDNEY DISEASE, STAGE 4 (SEVERE) 03/21/2017 NEW, BEENA GSheree AXLE AND FRAME MECHANIC-C Ot 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 03/21/2017 NEW, BEENA MaruSheree AXLE AND FRAME MECHANIC-C Ot R80.9 PROTEINURIA, UNSPECIFIED 03/31/2017 NEW, BEENA MaruSheree [employer] AND [employer] MECHANIC-C Ot 244.9 HYPOTHYROIDISM NOS 03/31/2017 NEW, BEENA MaruSheree AX[employer] AND [employer]AME MECHANIC-C Ot 250.40 DIAB W RENAL MANIFEST, TYPE II OR UNSPEC 03/31/2017 NEW, BEENA MaruSheree [employer] AND [employer] MECHANIC-C Ot 263.9 PROTEIN-ANA MALNUTR NOS 03/31/2017 NEW, BEENA MaruSheree AX[employer] AND [employer]AME MECHANIC-C Ot 268.9 VITAMIN D DEFICIENCY NOS 03/31/2017 NEW, BEENA Alejo [employer] MECHANIC-C Ot 272.4 HYPERLIPIDEMIA NEC/NOS 03/31/2017 NEW, BEENA Alejo [employer] MECHANIC-C Ot 276.7 HYPERPOTASSEMIA 03/31/2017 NEW, BEENA Alejo [employer] MECHANIC-C Ot 285.21 ANEMIA IN CHRONIC KIDNEY DISEASE 03/31/2017 NEW, BEENA Alejo [employer] MECHANIC-C Ot 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, BENIGN, 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 03/31/2017 NEW, BEENA Alejo [employer] MECHANIC-C Ot 414.00 CORON ATHEROSCLER NOS TYPE VESSEL, NATIV 03/31/2017 NEW, BEENA Alejo [employer] MECHANIC-C Ot 585.3 CHRONIC KIDNEY DISEASE, STAGE III (MODER 03/31/2017 NEW, BEENA Alejo [employer] MECHANIC-C Ot 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 03/31/2017 NEW, BEENA Alejo [employer] MECHANIC-C Ot 723.0 CERVICAL SPINAL STENOSIS 03/31/2017 NEW, BEENA Alejo AX[employer] AND [employer] MECHANIC-C Ot 791.0 PROTEINURIA 03/31/2017 NEW, BEENA Alejo AX[employer] AND [employer] MECHANIC-C Ot 796.4 ABN CLINICAL FINDING NEC 03/31/2017 NEW, BEENA Alejo [employer] MECHANIC-C Ot D63.1 ANEMIA IN CHRONIC KIDNEY DISEASE 03/31/2017 NEW, BEENA Alejo AX[employer] AND [employer] MECHANIC-C Ot D72.819 DECREASED WHITE BLOOD CELL COUNT, UNSPEC 03/31/2017 NEW, BEENA Alejo [employer] MECHANIC-C Ot E03.9 HYPOTHYROIDISM, UNSPECIFIED 03/31/2017 NEW, BEENA Alejo [employer] MECHANIC-C Ot E11.29 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 03/31/2017 NEW, BEENA Alejo AX[employer] AND [employer] MECHANIC-C Ot E46 UNSPECIFIED PROTEIN-CALORIE MALNUTRITION 03/31/2017 NEW, BEENA Alejo AX[employer] AND [employer] MECHANIC-C Ot E55.9 VITAMIN D DEFICIENCY, UNSPECIFIED 03/31/2017 NEW, BEENA Alejo [employer] AND [employer] MECHANIC-C Ot E78.5 HYPERLIPIDEMIA, UNSPECIFIED 03/31/2017 NEW, BEENA Alejo AX[employer] AND [employer] MECHANIC-C Ot E87.5 HYPERKALEMIA 03/31/2017 NEW, BEENA Alejo [employer] AND [employer] MECHANIC-C Ot 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, W S 03/31/2017 NEW, BEENA Alejo AX[employer] AND [employer] MECHANIC-C Ot I25.10 ATHSCL HEART DISEASE OF [place] CORONARY 03/31/2017 NEW, BEENA Alejo AX[employer] AND [employer] MECHANIC-C Ot M48.02 SPINAL STENOSIS, CERVICAL REGION 03/31/2017 NEW, BEENA MaruSheree AX[employer] AND [employer]AME MECHANIC-C Ot N18.4 CHRONIC KIDNEY DISEASE, STAGE 4 (SEVERE) 03/31/2017 NEW, BEENA MaruSheree AXLE AND FRAME MECHANIC-C Ot R80.9 PROTEINURIA, UNSPECIFIED 03/31/2017 NEW, BEENA MaruSheree AX[employer] AND FRAME MECHANIC-C Ot D63.1 ANEMIA IN CHRONIC KIDNEY DISEASE 03/31/2017 NEW, BEENA MaruSheree AX[employer] AND [employer]AME MECHANIC-C Ot D72.819 DECREASED WHITE BLOOD CELL COUNT, UNSPEC 03/31/2017 NEW, BEENA MaruSheree [employer] AND [employer] MECHANIC-C Ot E03.9 HYPOTHYROIDISM, UNSPECIFIED 03/31/2017 NEW, BEENA Alejo [employer] AND [employer] MECHANIC-C Ot 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 03/31/2017 NEW, BEENA Alejo [employer] MECHANIC-C Ot E46 UNSPECIFIED PROTEIN-[place] MALNUTRITION 03/31/2017 NEW, BEENA MaruSheree AX[employer] AND FRAME MECHANIC-C Ot E55.9 VITAMIN D DEFICIENCY, UNSPECIFIED 03/31/2017 NEW, BEENA Alejo [employer] AND [employer] MECHANIC-C Ot E78.5 HYPERLIPIDEMIA, UNSPECIFIED 03/31/2017 NEW, BEENA MaruSheree AX[employer] AND [employer]AME MECHANIC-C Ot E87.5 HYPERKALEMIA 03/31/2017 NEW, BEENA MaruSheree [employer] AND [employer] MECHANIC-C Ot 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, W S 03/31/2017 NEW, BEENA MaruSheree [employer] AND [employer]AME MECHANIC-C Ot I25.10 ATHSCL HEART DISEASE OF [place] CORONARY 03/31/2017 NEW, BEENA Alejo [employer] MECHANIC-C Ot M48.02 SPINAL STENOSIS, CERVICAL REGION 03/31/2017 NEW, BEENA Alejo AX[employer] AND [employer] MECHANIC-C Ot 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 03/31/2017 NEW, BEENA Alejo [employer] AND [employer] MECHANIC-C Ot R80.9 PROTEINURIA, UNSPECIFIED 03/31/2017 NEW, BEENA MaruSheree AX[employer] AND FRAME MECHANIC-C Ot D63.1 ANEMIA IN CHRONIC KIDNEY DISEASE 03/31/2017 NEW, BEENA GSheree AX[employer] AND FRAME MECHANIC-C Ot D72.819 DECREASED WHITE BLOOD CELL COUNT, UNSPEC 03/31/2017 NEW, BEENA Alejo AX[employer] AND [employer]AME MECHANIC-C Ot E03.9 HYPOTHYROIDISM, UNSPECIFIED 03/31/2017 NEW, BEENA Alejo [employer] AND [employer] MECHANIC-C Ot 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 03/31/2017 NEW, BEENA Alejo [employer] AND [employer]AME MECHANIC-C Ot E46 UNSPECIFIED PROTEIN-CALORIE MALNUTRITION 03/31/2017 NEW, BEENA Alejo AX[employer] AND [employer] MECHANIC-C Ot E55.9 VITAMIN D DEFICIENCY, UNSPECIFIED 03/31/2017 NEW, BEENA Alejo AX[employer] AND [employer] MECHANIC-C Ot E78.5 HYPERLIPIDEMIA, UNSPECIFIED 03/31/2017 NEW, BEENA Alejo AX[employer] AND [employer] MECHANIC-C Ot E87.5 HYPERKALEMIA 03/31/2017 NEW, BEENA Alejo AX[employer] AND [employer] MECHANIC-C Ot 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, W S 03/31/2017 NEW, BEENA Alejo AX[employer] AND [employer] MECHANIC-C Ot I25.10 ATHSCL HEART DISEASE OF [place] CORONARY 03/31/2017 NEW, BEENA Alejo [employer] AND [employer] MECHANIC-C Ot M48.02 SPINAL STENOSIS, CERVICAL REGION 03/31/2017 NEW, BEENA Alejo AX[employer] AND [employer] MECHANIC-C Ot N18.4 CHRONIC KIDNEY DISEASE, STAGE 4 (SEVERE) 03/31/2017 NEW, BEENA Alejo AX[employer] AND FRAME MECHANIC-C Ot 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 03/31/2017 NEW, BEENA Alejo AX[employer] AND FRAME MECHANIC-C Ot R80.9 PROTEINURIA, UNSPECIFIED 03/31/2017 NEW, BEENA Alejo AX[employer] AND [employer] MECHANIC-C Ot D63.1 ANEMIA IN CHRONIC KIDNEY DISEASE 03/31/2017 NEW, BEENA Alejo AX[employer] AND [employer] MECHANIC-C Ot D72.819 DECREASED WHITE BLOOD CELL COUNT, UNSPEC 03/31/2017 NEW, BEENA Alejo AX[employer] AND [employer] MECHANIC-C Ot E03.9 HYPOTHYROIDISM, UNSPECIFIED 03/31/2017 NEW, BEENA Alejo [employer] AND [employer] MECHANIC-C Ot E11.29 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 03/31/2017 NEW, BEENA Alejo AX[employer] AND FRAME MECHANIC-C Ot E46 UNSPECIFIED PROTEIN-CALORIE MALNUTRITION 03/31/2017 NEW, BEENA Alejo AX[employer] AND FRAME MECHANIC-C Ot E55.9 VITAMIN D DEFICIENCY, UNSPECIFIED 03/31/2017 NEW, BEENA Alejo AX[employer] AND [employer] MECHANIC-C Ot E78.5 HYPERLIPIDEMIA, UNSPECIFIED 03/31/2017 NEW, BEENA Alejo AX[employer] AND [employer] MECHANIC-C Ot E87.5 HYPERKALEMIA 03/31/2017 NEW, BEENA Alejo AX[employer] AND [employer] MECHANIC-C Ot 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, W S 03/31/2017 NEW, BEENA Alejo AX[employer] AND [employer] MECHANIC-C Ot I25.10 ATHSCL HEART DISEASE OF [place] CORONARY 03/31/2017 NEW, BEENA Alejo AX[employer] AND FR[employer] MECHANIC-C Ot M48.02 SPINAL STENOSIS, CERVICAL REGION 03/31/2017 NEW, BEENA Alejo AX[employer] AND FRAME MECHANIC-C Ot N18.4 CHRONIC KIDNEY DISEASE, STAGE 4 (SEVERE) 03/31/2017 NEW, BEENA Alejo AX[employer] AND FRAME MECHANIC-C Ot 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 03/31/2017 NEW, BEENA Alejo AX[employer] AND FRAME MECHANIC-C Ot R80.9 PROTEINURIA, UNSPECIFIED 03/31/2017 NEW, BEENA Alejo AX[employer] AND [employer] MECHANIC-C Ot E11.29 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 03/31/2017 NEW, BEENA Alejo AX[employer] AND FRAME MECHANIC-C Ot N18.4 CHRONIC KIDNEY DISEASE, STAGE 4 (SEVERE) 04/01/2017 NEW, BEENA MahoneySheree AX[employer] AND FRAME MECHANIC-C Ot D63.1 ANEMIA IN CHRONIC KIDNEY DISEASE 04/01/2017 NEW, BEENA Alejo AX[employer] AND FRAME MECHANIC-C Ot D72.819 DECREASED WHITE BLOOD CELL COUNT, UNSPEC 04/01/2017 NEW, BEENA GSheree AX[employer] AND [employer]AME MECHANIC-C Ot E03.9 HYPOTHYROIDISM, UNSPECIFIED 04/01/2017 NEW, BEENA MahoneySheree AX[employer] AND [employer]AME MECHANIC-C Ot 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 04/01/2017 NEW, BEENA MahoneySheree [employer] AND [employer]AME MECHANIC-C Ot E46 UNSPECIFIED PROTEIN-CALORIE MALNUTRITION 04/01/2017 NEW, BEENA Alejo AX[employer] AND [employer]AME MECHANIC-C Ot E55.9 VITAMIN D DEFICIENCY, UNSPECIFIED 04/01/2017 NEW, BEENA Alejo [employer] AND [employer] MECHANIC-C Ot E78.5 HYPERLIPIDEMIA, UNSPECIFIED 04/01/2017 NEW, BEENA Alejo [employer] MECH[employer]IC-C Ot E87.5 HYPERKALEMIA 04/01/2017 NEW, BEENA MahoneySheree [employer] MECH[employer]IC-C Ot 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, W S 04/01/2017 NEW, BEENA MahoneySheree [employer] MECH[employer]IC-C Ot I25.10 ATHSCL HEART DISEASE OF [place] CORONARY 04/01/2017 NEW, BEENA MahoneySheree [employer] MECH[employer]IC-C Ot M48.02 SPINAL STENOSIS, CERVICAL REGION 04/01/2017 NEW, BEENA Alejo [employer] MECHANIC-C Ot N18.4 CHRONIC KIDNEY DISEASE, STAGE 4 (SEVERE) 04/01/2017 NEW, BEENA Alejo [employer] MECHANIC-C Ot 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 04/01/2017 NEW, BEENA Alejo [employer] MECHANIC-C Ot R80.9 PROTEINURIA, UNSPECIFIED 04/23/2017 NEW, BEENA Alejo [employer] MECH[employer]IC-C Ot D63.1 ANEMIA IN CHRONIC KIDNEY DISEASE 04/23/2017 NEW, BEENA Alejo [employer] MECHANIC-C Ot D72.819 DECREASED WHITE BLOOD CELL COUNT, UNSPEC 04/23/2017 NEW, BEENA Alejo [employer] MECHANIC-C Ot E03.9 HYPOTHYROIDISM, UNSPECIFIED 04/23/2017 NEW, BEENA Alejo [employer] MECHANIC-C Ot 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 04/23/2017 NEW, BEENA Alejo [employer] MECHANIC-C Ot E46 UNSPECIFIED PROTEIN-CALORIE MALNUTRITION 04/23/2017 NEW, BEENA Alejo [employer] MECHANIC-C Ot E55.9 VITAMIN D DEFICIENCY, UNSPECIFIED 04/23/2017 NEW, BEENA Alejo [employer] MECHANIC-C Ot E78.5 HYPERLIPIDEMIA, UNSPECIFIED 04/23/2017 NEW, BEENA Alejo [employer] MECHANIC-C Ot E87.5 HYPERKALEMIA 04/23/2017 NEW, BEENA Alejo [employer] MECHANIC-C Ot 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 [employer] MECHANIC-C Ot R80.9 PROTEINURIA, UNSPECIFIED 01/06/2018 NEW, BEENA Alejo [employer] MECHANIC-C Ot D63.1 ANEMIA IN CHRONIC KIDNEY DISEASE 01/06/2018 NEW, BEENA Alejo [employer] MECHANIC-C Ot D72.819 DECREASED WHITE BLOOD CELL COUNT, UNSPEC 01/06/2018 NEW, BEENA Alejo [employer] MECHANIC-C Ot E03.9 HYPOTHYROIDISM, UNSPECIFIED 01/06/2018 NEW, BEENA Alejo [employer] MECHANIC-C Ot E11.29 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 01/06/2018 NEW, BEENA Melo [employer] AND [employer] MECHANIC-C Ot E46 UNSPECIFIED PROTEIN-CALORIE MALNUTRITION 01/06/2018 NEW, BEENA MahoneySheree [employer] MECHANIC-C Ot E55.9 VITAMIN D DEFICIENCY, UNSPECIFIED 01/06/2018 NEW, BEENA Alejo [employer] MECHANIC-C Ot E78.5 HYPERLIPIDEMIA, UNSPECIFIED 01/06/2018 NEW, BEENA Alejo [employer] MECHANIC-C Ot E87.5 HYPERKALEMIA 01/06/2018 NEW, BEENA Alejo [employer] MECHANIC-C Ot 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, W S 01/06/2018 NEW, BEENA MahoneySheree [employer] MECHANIC-C Ot I25.10 ATHSCL HEART DISEASE OF [place] CORONARY 01/06/2018 NEW, BEENA Alejo AX[employer] MECHANIC-C Ot M48.02 SPINAL STENOSIS, CERVICAL REGION 01/06/2018 NEW, BEENA Alejo [employer] MECHANIC-C Ot N18.4 CHRONIC KIDNEY DISEASE, STAGE 4 (SEVERE) 01/06/2018 NEW, BEENA MahoneySheree [employer] MECHANIC-C Ot 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 01/06/2018 NEW, BEENA Alejo [employer] MECHANIC-C Ot R80.9 PROTEINURIA, UNSPECIFIED 01/06/2018 NEW, BEENA Alejo [employer] MECHANIC-C Ot R82.90 UNSPECIFIED ABNORMAL FINDINGS IN URINE 03/09/2018 W 250.00 DIABETES MELLITUS WITHOUT MENTION OF COMPLICATION, TYPE II OR UNSPECIFIED TYPE, NOT STATED UNCONTROLLED 03/09/2018 W 272.4 OTHER AND UNSPECIFIED HYPERLIPIDEMIA 03/09/2018 W 410.71 03/09/2018 W 414.01 CORONARY 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 Results Test Result Range CBC With Differential/Platelet - 03/14/16 12:17 WBC 4.3 x10E3/uL 3.4-10.8 RBC 3.71 x10E6/uL 3.77-5.28 Hemoglobin 11.0 g/dL 11.1-15.9 Hematocrit 33.6 % 34.0-46.6 MCV 91 fL 79-97 MCH 29.6 pg 26.6-33.0 MCHC 32.7 g/dL 31.5-35.7 RDW 14.0 % 12.3-15.4 Platelets 124 x10E3/uL 150-379 Neutrophils 69 % Lymphs 19 % Monocytes 9 % Eos 2 % Basos 0 % Neutrophils (Absolute) 3.0 x10E3/uL 1.4-7.0 Lymphs (Absolute) 0.8 x10E3/uL 0.7-3.1 Monocytes(Absolute) 0.4 x10E3/uL 0.1-0.9 Eos (Absolute) 0.1 x10E3/uL 0.0-0.4 Baso (Absolute) 0.0 x10E3/uL 0.0-0.2 Immature Granulocytes 1 % Immature Grans (Abs) 0.0 x10E3/uL 0.0-0.1 Renal Panel (10) - 03/14/16 12:17 Glucose, Serum 108 mg/dL 65-99 BUN 22 mg/dL 8-27 Creatinine, Serum 1.15 mg/dL 0.57-1.00 eGFR If NonAfricn Am 47 mL/min/1.73 >59 eGFR If Africn Am 54 mL/min/1.73 >59 BUN/Creatinine Ratio 19 11-26 Sodium, Serum 143 mmol/L 134-144 Potassium, Serum 4.5 mmol/L 3.5-5.2 Chloride, Serum 103 mmol/L 96-106 Carbon Dioxide, Total 22 mmol/L 18-29 Calcium, Serum 9.3 mg/dL 8.7-10.3 Albumin, Serum 4.3 g/dL 3.5-4.8 Phosphorus, Serum 3.4 mg/dL 2.5-4.5 Iron and TIBC - 03/14/16 12:17 Iron Bind.Cap.(TIBC) 267 ug/dL 250-450 UIBC 245 ug/dL 118-369 Iron, Serum 22 ug/dL 27-139 Iron Saturation 8 % 15-55 Prot+CreatU (Random) - 03/14/16 12:17 Creatinine, Urine 70.3 mg/dL Not Estab. Protein,Total,Urine 79.1 mg/dL Not Estab. Protein/Creat Ratio 1125 mg/g creat 0-200 Vitamin D, 25-Hydroxy - 03/14/16 12:17 Vitamin D, 25-Hydroxy 38.2 ng/mL 30.0-100.0 Ferritin, Serum - 03/14/16 12:17 Ferritin, Serum 186 ng/mL 15-150 Automated blood complete blood count (hemogram) panel - 08/16/16 10:01 Blood leukocytes automated count (number/volume) 3.4 10*3/uL 4.3-11.0 Blood erythrocytes automated count (number/volume) 4.05 10*6/uL 4.35-5.85 Venous blood hemoglobin measurement (mass/volume) 12.5 g/dL 11.5-16.0 Blood hematocrit (volume fraction) 38 % 35-52 Automated erythrocyte mean corpuscular volume 94 [foz_us] 80-99 Automated erythrocyte mean corpuscular hemoglobin (mass per erythrocyte) 31 pg 25-34 Automated erythrocyte mean corpuscular hemoglobin concentration measurement ( mass/volume) 33 g/dL 32-36 Automated erythrocyte distribution width ratio 13.9 % 10.0-14.5 Automated blood platelet count (count/volume) 147 10*3/uL 130-400 Automated blood platelet mean volume measurement 9.6 [foz_us] 7.4-10.4 Serum or plasma renal function panel (Na, K, Cl, CO2, BUN, Cr, glucose,Ca, phos , alb) - 08/16/16 10:01 Serum or plasma sodium measurement (moles/volume) 141 mmol/L 135-145 Serum or plasma potassium measurement (moles/volume) 4.3 mmol/L 3.6-5.0 Serum or plasma chloride measurement (moles/volume) 105 mmol/L 98-107 Carbon dioxide 26 mmol/L 21-32 Serum or plasma anion gap determination (moles/volume) 10 mmol/L 5-14 Serum or plasma urea nitrogen measurement (mass/volume) 16 mg/dL 7-18 Serum or plasma creatinine measurement (mass/volume) 1.10 mg/dL 0.60-1.30 Serum or plasma urea nitrogen/creatinine mass ratio 15 NRG Serum or plasma creatinine measurement with calculation of estimated glomerular filtration rate 48 NRG Serum or plasma glucose measurement (mass/volume) 117 mg/dL 70-105 Serum or plasma calcium measurement (mass/volume) 9.7 mg/dL 8.5-10.1 Serum or plasma albumin measurement (mass/volume) 3.9 g/dL 3.2-4.5 Serum or plasma phosphate measurement (mass/volume) 3.6 mg/dL 2.3-4.7 Lipid 1996 panel - 08/16/16 10:01 Serum or plasma triglyceride measurement (mass/volume) 172 mg/dL <150 Serum or plasma cholesterol measurement (mass/volume) 280 mg/dL < 200 Serum or plasma cholesterol in HDL measurement (mass/volume) 40 mg/ dL 40-60 Cholesterol in LDL [mass/volume] in serum or plasma by direct assay 204 mg/dL 1-129 Serum or plasma cholesterol in VLDL measurement (mass/volume) 34 mg/ dL 5-40 Serum iron and total iron binding capacity panel - 08/16/16 10:01 Serum or plasma iron measurement (mass/volume) 81 % 35- 180 Total iron binding capacity and transferrin saturation measurement 33 % 15-50 Iron binding capacity [mass/volume] in serum or plasma 247 % 280-380 UIBC (unsaturated iron binding capacity) 166 % NRG Serum or plasma ferritin measurement (mass/volume) 431.0 % 15.0-150.0 25-hydroxyvitamin D measurement - 08/16/16 10:01 25-hydroxy vitamin D measurement 24 % 30-100 Urine protein/creatinine mass ratio - 08/16/16 10:10 Urine protein measurement (mass/volume) 81 mg/dL 6-12 Urine creatinine measurement (mass/volume) 147 mg/dL 30- 125 Urine protein/creatinine mass ratio 0.55 NRG Urine protein/creatinine mass ratio - 03/31/17 14:20 Urine protein measurement (mass/volume) 15 mg/dL 6-12 Urine creatinine measurement (mass/volume) 38 mg/dL 30- 125 Urine protein/creatinine mass ratio 0.39 NRG Complete urinalysis with reflex to culture - 03/31/17 14:20 Urine color determination YELLOW NRG Urine clarity determination CLEAR NRG Urine pH measurement by test strip 5 5-9 Specific gravity of urine by test strip 1.010 1.016- 1.022 Urine protein assay by test strip, semi-quantitative 1+ NEGATIVE Urine glucose detection by automated test strip NEGATIVE NEGATIVE Erythrocytes detection in urine sediment by light microscopy NEGATIVE NEGATIVE Urine ketones detection by automated test strip NEGATIVE NEGATIVE Urine nitrite detection by test strip NEGATIVE NEGATIVE Urine total bilirubin detection by test strip NEGATIVE NEGATIVE Urine urobilinogen measurement by automated test strip (mass/volume) NORMAL NORMAL Urine leukocyte esterase detection by dipstick 3+ NEGATIVE Automated urine sediment erythrocyte count by microscopy (number/high power field) NONE NRG Automated urine sediment leukocyte count by microscopy (number/high power field ) [HPF] NRG Bacteria detection in urine sediment by light microscopy TRACE NRG Squamous epithelial cells detection in urine sediment by light microscopy 2-5 NRG Crystals detection in urine sediment by light microscopy NONE NRG Casts detection in urine sediment by light microscopy NONE NRG Mucus detection in urine sediment by light microscopy NEGATIVE NRG Complete urinalysis with reflex to culture YES NRG Bacterial urine culture - 03/31/17 14:20 Bacterial urine culture [id number] NRG COLONY COUNT 10,000/ML - 100,000/ML NRG FREE TEXT ENTRY 3 MIXED GRAM POSITIVE LORE <10,000/ML NRG Automated blood complete blood count (hemogram) panel - 03/31/17 14:28 Blood leukocytes automated count (number/volume) 4.5 10*3/uL 4.3-11.0 Blood erythrocytes automated count (number/volume) 4.31 10*6/uL 4.35-5.85 Venous blood hemoglobin measurement (mass/volume) 13.2 g/dL 11.5-16.0 Blood hematocrit (volume fraction) 39 % 35-52 Automated erythrocyte mean corpuscular volume 91 [foz_us] 80-99 Automated erythrocyte mean corpuscular hemoglobin (mass per erythrocyte) 31 pg 25-34 Automated erythrocyte mean corpuscular hemoglobin concentration measurement ( mass/volume) 34 g/dL 32-36 Automated erythrocyte distribution width ratio 13.9 % 10.0-14.5 Automated blood platelet count (count/volume) 154 10*3/uL 130-400 Automated blood platelet mean volume measurement 9.6 [foz_us] 7.4-10.4 Serum or plasma renal function panel (Na, K, Cl, CO2, BUN, Cr, glucose,Ca, phos , alb) - 03/31/17 14:28 Serum or plasma sodium measurement (moles/volume) 138 mmol/L 135-145 Serum or plasma potassium measurement (moles/volume) 4.1 mmol/L 3.6-5.0 Serum or plasma chloride measurement (moles/volume) 102 mmol/L 98-107 Carbon dioxide 23 mmol/L 21-32 Serum or plasma anion gap determination (moles/volume) 13 mmol/L 5-14 Serum or plasma urea nitrogen measurement (mass/volume) 22 mg/dL 7-18 Serum or plasma creatinine measurement (mass/volume) 1.18 mg/dL 0.60-1.30 Serum or plasma urea nitrogen/creatinine mass ratio 19 NRG Serum or plasma creatinine measurement with calculation of estimated glomerular filtration rate 45 NRG Serum or plasma glucose measurement (mass/volume) 168 mg/dL 70-105 Serum or plasma calcium measurement (mass/volume) 9.6 mg/dL 8.5-10.1 Serum or plasma albumin measurement (mass/volume) 3.9 g/dL 3.2-4.5 Serum or plasma phosphate measurement (mass/volume) 3.2 mg/dL 2.3-4.7 Lipid 1996 panel - 03/31/17 14:28 Serum or plasma triglyceride measurement (mass/volume) 322 mg/dL <150 Serum or plasma cholesterol measurement (mass/volume) 286 mg/dL < 200 Serum or plasma cholesterol in HDL measurement (mass/volume) 39 mg/ dL 40-60 Cholesterol in LDL [mass/volume] in serum or plasma by direct assay 194 mg/dL 1-129 Serum or plasma cholesterol in VLDL measurement (mass/volume) 64 mg/ dL 5-40 Hemoglobin A1c - 03/31/17 14:28 Blood hemoglobin A1C measurement (mass/volume) 6.4 % 4.0- 5.6 MEAN BLOOD GLUCOSE 137 % <=126 Serum iron and total iron binding capacity panel - 03/31/17 14:28 Serum or plasma iron measurement (mass/volume) 73 % 35- 180 Total iron binding capacity and transferrin saturation measurement 29 % 15-50 Iron binding capacity [mass/volume] in serum or plasma 251 % 280-380 UIBC (unsaturated iron binding capacity) 178 % 55-450 Serum or plasma ferritin measurement (mass/volume) 423.0 % 15.0-150.0 Serum or plasma intact pararthyroid hormone measurement (mass/volume) - 14:28 Serum or plasma intact parathyroid hormone measurement (mass/volume) 32.0 pg/mL 10.0-65.0 Bio-intact parathyroid hormone (PTH) measurement with calcium 9.7 % 8.5-10.5 25-hydroxyvitamin D measurement - 03/31/17 14:28 25-hydroxy vitamin D measurement 19 % 30-100 Automated blood complete blood count (hemogram) panel - 12/16/17 14:55 Blood leukocytes automated count (number/volume) 5.0 10*3/uL 4.3-11.0 Blood erythrocytes automated count (number/volume) 4.15 10*6/uL 4.35-5.85 Venous blood hemoglobin measurement (mass/volume) 12.5 g/dL 11.5-16.0 Blood hematocrit (volume fraction) 37 % 35-52 Automated erythrocyte mean corpuscular volume 89 [foz_us] 80-99 Automated erythrocyte mean corpuscular hemoglobin (mass per erythrocyte) 30 pg 25-34 Automated erythrocyte mean corpuscular hemoglobin concentration measurement ( mass/volume) 34 g/dL 32-36 Automated erythrocyte distribution width ratio 13.3 % 10.0-14.5 Automated blood platelet count (count/volume) 167 10*3/uL 130-400 Automated blood platelet mean volume measurement 10.2 [foz_us] 7.4-10.4 Serum or plasma renal function panel (Na, K, Cl, CO2, BUN, Cr, glucose,Ca, phos , alb) - 12/16/17 14:55 Serum or plasma sodium measurement (moles/volume) 137 mmol/L 135-145 Serum or plasma potassium measurement (moles/volume) 3.7 mmol/L 3.6-5.0 Serum or plasma chloride measurement (moles/volume) 104 mmol/L 98-107 Carbon dioxide 21 mmol/L 21-32 Serum or plasma anion gap determination (moles/volume) 12 mmol/L 5-14 Serum or plasma urea nitrogen measurement (mass/volume) 17 mg/dL 7-18 Serum or plasma creatinine measurement (mass/volume) 1.16 mg/dL 0.60-1.30 Serum or plasma urea nitrogen/creatinine mass ratio 15 NRG Serum or plasma creatinine measurement with calculation of estimated glomerular filtration rate 45 NRG Serum or plasma glucose measurement (mass/volume) 129 mg/dL 70-105 Serum or plasma calcium measurement (mass/volume) 9.7 mg/dL 8.5-10.1 Serum or plasma albumin measurement (mass/volume) 4.1 g/dL 3.2-4.5 Serum or plasma phosphate measurement (mass/volume) 2.7 mg/dL 2.3-4.7 Hemoglobin A1c - 12/16/17 14:55 Blood hemoglobin A1C measurement (mass/volume) 6.0 % 4.0- 5.6 MEAN BLOOD GLUCOSE 126 % <=126 VITAMIN D 25-HYDROXY - 12/16/17 14:55 VITAMIN D 25-HYDROXY (TOTAL) 29.0 % 30.0-100.0 Complete urinalysis with reflex to culture - 12/16/17 15:00 Urine color determination YELLOW NRG Urine clarity determination CLEAR NRG Urine pH measurement by test strip 5 5-9 Specific gravity of urine by test strip 1.015 1.016- 1.022 Urine protein assay by test strip, semi-quantitative 3+ NEGATIVE Urine glucose detection by automated test strip NEGATIVE NEGATIVE Erythrocytes detection in urine sediment by light microscopy NEGATIVE NEGATIVE Urine ketones detection by automated test strip NEGATIVE NEGATIVE Urine nitrite detection by test strip NEGATIVE NEGATIVE Urine total bilirubin detection by test strip NEGATIVE NEGATIVE Urine urobilinogen measurement by automated test strip (mass/volume) NORMAL NORMAL Urine leukocyte esterase detection by dipstick 3+ NEGATIVE Automated urine sediment erythrocyte count by microscopy (number/high power field) NONE NRG Automated urine sediment leukocyte count by microscopy (number/high power field ) [HPF] NRG Bacteria detection in urine sediment by light microscopy NEGATIVE NRG Squamous epithelial cells detection in urine sediment by light microscopy 2-5 NRG Crystals detection in urine sediment by light microscopy NONE NRG Casts detection in urine sediment by light microscopy NONE NRG Mucus detection in urine sediment by light microscopy NEGATIVE NRG Complete urinalysis with reflex to culture YES NRG Renal epithelial cells detection in urine sediment by light microscopy 0-2 NRG Urine protein/creatinine mass ratio - 12/16/17 15:00 Urine protein measurement (mass/volume) 47 mg/dL 6-12 Urine creatinine measurement (mass/volume) 142 mg/dL 30- 125 Urine protein/creatinine mass ratio 0.33 NRG Bacterial urine culture - 12/16/17 15:00 Bacterial urine culture SEE REPORT NRG COLONY COUNT . NRG Cardiac Panel - 03/09/18 00:45 CK 200 U/L 26-174 CK-MB 9.4 ng/ml 0.0-9.2 Myoglobin 158.0 ng/ml 1.6-106.0 Troponin 1.151 ng/mL 0.000-0.400 Rapid Drug Screen + ETOH,Medical - 03/09/18 01:20 Amphetamine NEGATIVE NEGATIVE Barbiturates NEGATIVE NEGATIVE Benzodiazepines NEGATIVE NEGATIVE Cocaine NEGATIVE NEGATIVE Ethanol, Urine <10.00 mg/dL 20.00-80.00 Marijuana NEGATIVE NEGATIVE Methylenedioxymethamphetamine NEGATIVE NEGATIVE Opiates NEGATIVE NEGATIVE Oxycodone NEGATIVE NEGATIVE Phencyclidine NEGATIVE NEGATIVE Propoxyphene NEGATIVE NEGATIVE Tricyclic Antidepressant NEGATIVE NEGATIVE Urine Culture - 03/09/18 01:33 PRELIM CULTURE RESULTS No Growth 24 hours FINAL CULTURE RESULTS No Growth 48 hours MEDIA PLATED Setup at 01:40 on 03/09/2018 CULTURE SOURCE cath Encounters ACCT No. Visit Date/Time Discharge Status Pt. Type Provider Facility Loc./Unit Complaint [id number] 12/16/2017 14:37:00 12/16/2017 23:59:59 CLS Outpatient BEENA DANIELSON [employer] [facility] LAB N18.4,E87.5 [id number] 03/31/2017 14:03:00 03/31/2017 23:59:59 CLS Outpatient BEENA DANIELSON [employer] [facility] LAB N18.4,E87.5 [id number] 08/16/2016 09:49:00 08/16/2016 23:59:59 CLS Outpatient BEENA DANEILSON [employer]-C [facility] LAB N18.4 [id number] 06/26/2016 00:13:00 06/26/2016 23:59:59 CLS Preadmit BEENA DANIELSON [employer]-C [facility] IRON DEFICIENCY ANEMIA [id number] 04/05/2016 11:04:00 06/25/2016 00:01:00 DIS Outpatient BEENA DANIELSON [employer] [facility] IRON DEFICIENCY ANEMIA [id number] 12/25/2015 00:09:00 12/25/2015 23:59:59 CLS Preadmit BEENA DANIELSON [employer] [facility] LAB CHRONIC KIDNEY DISEASE [id number] 09/26/2015 10:00:00 12/24/2015 00:01:00 DIS Outpatient BEENA DANIELSON [employer] [facility] CHRONIC KIDNEY DISEASE [id number] 09/25/2015 14:31:00 09/25/2015 23:59:59 CLS Outpatient BEENA DANIELSON [employer] [facility] LAB CHRONIC KIDNEY DISEASE, HYPERKALEMIA [id number] 05/28/2015 17:36:00 05/28/2015 19:48:00 DIS Emergency DONNIE CARLTON [employer] [facility] ER SHAKINESS [id number] 03/07/2015 12:52:00 03/07/2015 23:59:59 CLS Outpatient BEENA DANIELSON [employer] [facility] LAB CHRONIC KIDNEY DISEASE [id number] 10/11/2014 09:08:00 10/11/2014 23:59:59 CLS Outpatient BEENA DANIELSON [employer] [facility] LAB CKD STAGE III, HYPERTENSIVE HEART,DM,ANEMIA IN CKD [id number] 10/12/2013 13:28:00 10/12/2013 15:54:00 DIS Emergency BEENA BRIDGES DO [facility] ER FEET/LEGS SWELLING [id number] 10/11/2014 09:04:00 Document Registration [id number] 01/30/2011 14:55:00 Document Registration [id number] 10/29/2010 05:49:00 Document Registration [id number] 10/26/2010 13:14:00 Document Registration [id number] 08/15/2010 05:38:00 Document Registration [id number] 08/10/2010 08:58:00 Document Registration [id number] 03/15/2016 13:05:00 Document Registration [id number] 16:40:00 2018 23:59:59 [id number] 10/11/2014 09:12:04 ACT Document Registration [id number] 03/09/2018 01:43:56 Document Registration [id number] 03/09/2018 00:45:19 Document Registration
[2018-03-11] MEDS: FAMOTIDINE 20 MG (PEPCID) TABLET PO SCH (20:00)
[2018-03-11] MEDS: eZETimibe 10 MG (ZETIA) TABLET PO SCH (20:00)
[2018-03-11] MEDS: CARVEDILOL 12.5 MG (COREG) TABLET PO SCH (20:00)
[2018-03-11] MEDS: ATORVASTATIN 40 MG (LIPITOR) TABLET PO SCH (20:00)
--- NOTE | 2018-03-11 20:10 | History & Physical ---
History of Present Illness History of Present Illness Reason for visit/HPI CC: CVA residual HPI: This is a 78-year-old white female clinic patient of Dr. Gibson in [place] who presents to the inpatient rehab facility due to deficits sustained in a stroke 3 days prior. Apparently she presented to an outside hospital with abrupt onset of right-sided weakness was given TPA since she was within the 4- hour window and was flown to [facility] for stroke care. She was managed aggressively had a stroke score of 12 on admission she did have hemorrhagic spread of the area of the infarct but that was minimal. She sustained right sided weakness due to the stroke affecting the left MCA territory and continues to have a aphasia and keeps conversations brief due to the fact she cannot carry on a normal conversation like she had prior. She is able to swallow regular solids and liquids and she did have an elevated troponin managed by cardiology in a conservative manner with ejection fraction on echocardiogram revealing 35%. The troponin was elevated but decreased throughout the hospital course and did not require any aggressive intervention. There is no thrombosis in the arterial system intracranial imaging and blood pressure is been good as well as her complete blood count normal white count and creatinine. Her blood sugars show pre-diabetes with hemoglobin A1c of 6.4. At this current time her comorbidities include CAD, permanent pacemaker, chronic renal insufficiency, hypertension, and pre-diabetes. 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 She cannot recall who her cambering machine operator is. She reports that she is at [facility] although she is in [facility] but she does live in [place]. She does not know why she is in inpatient rehab facility. Date of Admission Mar 11, 2018 at 17:00 Date Seen by a Provider: Mar 11, 2018 Time Seen by a Provider: 16:30 I consulted on this patient on 03/11/18 20:04 Attending Physician Ervin Mccullough DO Admitting Physician Pepito Gibson MD Consult Allergies and Home Medications Allergies Coded Allergies: NKANo Known Allergies (Unverified Allergy, Mild, 07/03/08) Home Medications Aspirin 81 Mg Tab.chew, 81 MG PO DAILY, (Reported) Carvedilol 25 Mg Tablet, 25 MG PO BID, (Reported) 1 TAB AT NOON AND 1 TAB AT HS Citalopram Hydrobromide 40 Mg Tablet, 1.5 TAB PO DAILY, (Reported) Clopidogrel 75 Mg Tablet, 1 EACH PO DAILY, (Reported) Ezetimibe 10 Mg Tablet, 10 MG PO DAILY, (Reported) Famotidine 10 Mg Tablet, 20 MG PO DAILY Prescribed by: JOSUE MENDEZ on 03/11/181821 Ferrous Sulfate 325 Mg Tablet, 150 MG PO HS, (Reported) Hctz/Lisinopril 1 Each Tablet, 1 TAB PO DAILY, (Reported) Hydrocodone Bit/Acetaminophen 1 Each Tablet, 1-2 EACH PO Q4-6HR PRN, (Reported) Levothyroxine Sodium 50 Mcg Tablet, 50 MCG PO DAILY, (Reported) Loratadine 10 Mg Tablet, 10 MG PO DAILY, (Reported) Magnesium Oxide 400 Mg Tab, 400 MG PO DAILY, (Reported) Metformin Hcl 850 Mg Tablet, 850 MG PO BID, (Reported) Pioglitazone Hcl 45 Mg Tablet, 45 MG PO DAILY, (Reported) Simvastatin 40 Mg Tablet, 40 MG PO DAILY, (Reported) Patient Home Medication List Home Medication List Reviewed: Yes Past Pjtlvtp-Uemrlm-Nmfxis Hx Past Med/Social Hx: Reviewed Nursing Past Med/Soc Hx, Reviewed and Corrections made Patient Social History Marrital Status: single Employed/Student: retired (cannot recall what career she had) Alcohol Use: Denies Use Smoking Status: Never a Smoker Recent Foreign Travel: No Contact w/other who traveled: No Immunizations Up To Date Date of Pneumonia Vaccine: Dec 08, 2013 Past Medical History Surgeries: Cardiac, CABG, Eye Surgery, Hysterectomy, Orthopedic Cardiac: Coronary Artery Disease, High Cholesterol, Hypertension Neurological: Stroke Reproductive: No Sexually Transmitted Disease: No Genitourinary: Renal Failure Gastrointestinal: Chronic Constipation Musculoskeletal: Arthritis Endocrine: Hypothyroidsim, Diabetes, Non-Insulin dep Psychosocial: Depression Family History Diabetes Review of Systems Constitutional: see HPI, weakness EENTM: no symptoms reported Respiratory: no symptoms reported Cardiovascular: no symptoms reported Gastrointestinal: no symptoms reported Genitourinary: no symptoms reported Musculoskeletal: no symptoms reported Skin: no symptoms reported Psychiatric/Neurological: Depressed, Weakness All Other Systems Reviewed Negative Unless Noted: Yes Physical Exam Vital Signs Vital Signs - First Documented 03/11/18 17:15 Temp 98.0 Pulse 83 Resp 20 B/P (MAP) 150/84 (106) Pulse Ox 99 O2 Delivery Room Air Capillary Refill : Height, Weight, BMI Height: 4'8.00" Weight: 148lbs. 0.0oz. [id number]; 30.51 BMI Method: General Appearance: No Apparent Distress, WD/WN, Chronically ill Eyes: Bilateral Eye Normal Inspection, Bilateral Eye PERRL, Bilateral Eye EOMI HEENT: PERRL/EOMI, Normal ENT Inspection, Pharynx Normal, Other (leftward gaze) Neck: Full Range of Motion, Normal Inspection, Non Tender, Supple, Carotid Bruit Respiratory: Chest Non Tender, Lungs Clear, Normal Breath Sounds, No Accessory Muscle Use, No Respiratory Distress Cardiovascular: Regular Rate, Rhythm, No Edema, No Gallop, No JVD, No Murmur, Normal Peripheral Pulses Gastrointestinal: Normal Bowel Sounds, No Organomegaly, No Pulsatile Mass, Non Tender, Soft Back: Normal Inspection, No CVA Tenderness, No Vertebral Tenderness Extremity: Normal Capillary Refill, Normal Inspection, Normal Range of Motion, Non Tender, No Calf Tenderness, No Pedal Edema 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, No Motor/Sensory Deficits, Normal Mood/Affect, Disoriented, Motor Weakness (right upper and lower 3/5) Skin: Normal Color, Warm/Dry Lymphatic: No Adenopathy Assessment/Plan Assessment and Plan Problems: (1) Cerebrovascular accident (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 Status: Acute (2) CAD (coronary artery disease) Status: Chronic (3) Pacemaker Status: Chronic (4) Renal insufficiency Status: Chronic (5) Hyperlipidemia Status: Chronic (6) Noncompliance Status: Chronic (7) Disorientation Status: Acute (8) Aphasia Status: Acute (9) Memory deficit Status: Acute (10) Elevated troponin Status: Acute Admission Diagnosis Admission Status: Inpatient Order (span 2 midnights) Reason for Inpatient Admission: CVA will require 14 days of IRF prior to DC home Diagnosis/Problems Activity: Increase ambulation Diet: Other (maintain good nutrition) Diagnostics: Labs ordered, Consult Additional comments: Patient goal is to return home as independently as possible. Her son Gautam is involved in her care. Speech therapy will focus on attention training, cognitive training with memory focused therapy dysphasia training and communication training. Physical therapy will work on gait training wheelchair training balance management and and home exercise program. Occupational therapy will work on toilet transfer training tub and shower transfer training and progressive upper extremity strengthening with exercise and use adaptive equipment and home safety equipment. Problem Qualifiers (1) CAD (coronary artery disease): Coronary Disease-Associated Artery/Lesion type: [place] artery [place] vs. transplanted heart: [place]chan heart Associated angina: without angina Qualified Codes: I25.10 - Atherosclerotic heart disease of [place] coronary artery without angina pectoris (2) Hyperlipidemia: Hyperlipidemia type: mixed hyperlipidemia Qualified Codes: E78.2 - Mixed hyperlipidemia ERVIN MCCULLOUGH DO Mar 11, 2018 20:10
[2018-03-11] MEDS ORDERED: LOPERAMIDE 2 MG (IMODIUM) CAP PO PRN (20:30)
[2018-03-11] MEDS ORDERED: DOCUSATE SODIUM 100 MG (COLACE) CAP PO PRN (20:30)
[2018-03-11] MEDS ORDERED: POLYETHYLENE GLYCOL 17 GM (MIRALAX) PACK PO PRN (20:30)
[2018-03-11] MEDS ORDERED: ALPRAZolam 0.25 MG (XANAX) TAB PO PRN (20:30)
[2018-03-11] MEDS ORDERED: diphenhydrAMINE 25 MG TAB (BENADRYL) PO PRN (20:30)
[2018-03-11] MEDS ORDERED: ACETAMINOPHEN 500 MG TAB (TYLENOL) PO PRN (20:30)
[2018-03-11] MEDS ORDERED: ONDANSETRON 4 MG (ZOFRAN) ORAL DISSOLVE TAB PO PRN (20:30)
[2018-03-11] MEDS ORDERED: CALCIUM CARBONATE 500 MG (TUMS) TAB.CHEW PO PRN (20:30)
[2018-03-11] MEDS ORDERED: RX-TRAMADOL 50 MG (ULTRAM) TAB PPK#4 PO PRN (20:30)
[2018-03-11] MEDS ORDERED: ENOXAPARIN 30 MG/0.3 ML (LOVENOX) SYR ONE (20:53)
[2018-03-11] MEDS: inSUlin ASPART (NovoLOG) 1 UNIT/0.01 ML (CHARGE PER UNIT) SC SCH (21:33)
[2018-03-11] MEDS: ENOXAPARIN 40 MG/0.4 ML (LOVENOX) SYR SC SCH (21:34)
[2018-03-12] MEDS: inSUlin ASPART (NovoLOG) 1 UNIT/0.01 ML (CHARGE PER UNIT) SC SCH ×2 (05:23→11:00)
[2018-03-12 05:25] VITALS: BP 109/69
[2018-03-12 05:55] LABS: BASOPHILS % (AUTO) 1 % (0-10); EOSINOPHILS # (AUTO) 0.1 10^3/uL (0.0-0.3); EOSINOPHILS % (AUTO) 1 % (0-10); HEMATOCRIT 37 % (35-52); HEMOGLOBIN 12.2 G/DL (11.5-16.0); LYMPHOCYTES # (AUTO) 1.4 X 10^3 (1.0-4.0); LYMPHOCYTES % (AUTO) 25 % (12-44); MEAN CORPUSCULAR HEMOGLOBIN 29 PG (25-34); MEAN CORPUSCULAR HGB CONC 33 G/DL (32-36); MEAN CORPUSCULAR VOLUME 88 FL (80-99); MEAN PLATELET VOLUME 11.6 FL (7.4-10.4); MONOCYTES # (AUTO) 0.6 X 10^3 (0.0-1.0); MONOCYTES % (AUTO) 11 % (0-12); NEUTROPHILS # (AUTO) 3.6 X 10^3 (1.8-7.8); NEUTROPHILS % (AUTO) 62 % (42-75); PLATELET COUNT 153 10^3/uL (130-400); RED BLOOD COUNT 4.15 10^6/uL (4.35-5.85); RED CELL DISTRIBUTION WIDTH 14.1 % (10.0-14.5); WHITE BLOOD COUNT 5.8 10^3/uL (4.3-11.0)
[2018-03-12 06:26] LABS: ALBUMIN 3.4 GM/DL (3.2-4.5); BILIRUBIN,TOTAL 0.7 MG/DL (0.1-1.0); CALCIUM 8.9 MG/DL (8.5-10.1); CREATININE SERUM 1.14 MG/DL (0.60-1.30); POTASSIUM 4.3 MMOL/L (3.6-5.0); TOTAL PROTEIN 5.7 GM/DL (6.4-8.2)
[2018-03-12 08:30] VITALS: BP 101/66
[2018-03-12] MEDS: FAMOTIDINE 20 MG (PEPCID) TABLET PO SCH (08:33)
[2018-03-12] MEDS: CLOPIDOGREL 75 MG (PLAVIX) TABLET PO SCH (08:33)
[2018-03-12] MEDS: lisINopril 5 MG (PRINIVIL) TABLET PO SCH (08:33)
[2018-03-12] MEDS: CARVEDILOL 12.5 MG (COREG) TABLET PO SCH (08:33)
[2018-03-12] MEDS: ASPIRIN E.C. 81 MG (ECOTRIN) TAB PO SCH (08:33)
[2018-03-12] MEDS ORDERED: CARV25TA PO (08:44)
[2018-03-12] MEDS ORDERED: CLOP75TA28 PO (08:44)
[2018-03-12] MEDS ORDERED: FAMO20TA3 PO (08:44)
[2018-03-12] MEDS ORDERED: LISI-556 PO (08:44)
[2018-03-12] MEDS ORDERED: ATOR40TA70 PO (08:45)
[2018-03-12] MEDS ORDERED: CITA20TA12 PO (08:45)
[2018-03-12] MEDS ORDERED: EZET10TA27 PO (08:45)
[2018-03-12] MEDS ORDERED: ASPI-983 PO (08:50)
[2018-03-12] MEDS ORDERED: ASPIRIN 325 MG (5 GR) TABLET PO SCH (09:00)
--- NOTE | 2018-03-12 09:07 | ST Cognitive Linguistic Eval ---
Speech Evaluation-General Medical Diagnosis CVA residual Onset Date: Mar 08, 2018 Therapy Diagnosis Therapy Diagnosis: Aphasia Precautions Precautions/Isolations: Fall Prevention, Standard Precautions Medical History Pertinent Medical History: CAD, DM, Renal Insufficiency Reviewed History: Yes Social History Current Living Status: Other Family Speech PLF-Current Status Prior Level of Function Patient lived with family. Prior to her CVA she was independent for most daily tasks. Subjective Patient was pleasant and attentive throughout the evaluation process. Language Eval: Auditory Comprehends Simple Yes/No Ques: Functional Indent/Objects Multiple Zhong: Functional Ident/Pics in Multiple Zhong: Functional Follows 1-Step Commands: Functional Follows Complex Directions: Mild Follows General Conversations: Functional Language Eval: Verbal Language Completes Spontaneous Greeting: Functional Produces Auto, Serial Info: Mild Imitates Simple Words/Phrases: Functional Word Finding: Mild Requests Basic Needs: Functional States Basic Personal Info: Functional Expresses Complex Ideas: Mild Patient stated we were in 1978 and thinks Camilo is still president. Cognitive Patient Orientation Patient is oriented to self and place. She exhibits confusion related to temporal items. Objective Cognitive Domain Attention: WNL Memory: Mild Problem Solving: Mild Executive Functions: Mild Objective Formal/Standardized Tests [facility] [address] Cognitive/Communication Results Memory: Immediate: 3/3, Delayed 1/3, Orientation: 2/3, Organization/Sequencin/6, Auditory Processin/5, Problem Solving: Simple: 4/5, Complex: 2/5 Oral Motor/Speech Production Within Functional Limits with short phrases, breakdown begins with longer responses. Patient requires processing time at times. Impression Patient is a 78 year old female who presents with decreased memory skills secondary to a CVA on 03/08/18. Patient exhibits the most difficulty with temporal items, including her age, the year and who the current president is. She voiced Camilo was the president currently and the year was 1978. She also stated she is 64 years old. Patient is recommended for skilled ST to focus on temporal and personal items. Communication/Social Cognition Comprehension: 3 Expression: 3 Social Interaction: 4 Problem Solvin Memory: 2 Speech Patient Assess Expression of Ideas/Wants: Frequently (2) Understanding Verbal Content: Sometimes Understands(2) Brief Interview-Mental Status: Yes Repetition of Three Words: Three (3) Temporal Orientation: Year: Missed by more than 5 yrs (0) Temporal Orientation: Month: Missed by 6 days-1 month (1) Temporal Orientation: Day: Correct (1) Recall : Wear to say "Sock": Yes,after cueing (1) Recall : Color: Yes, no cue required (2) Recall : Bed: Yes,after cueing (1) Memory/Recall Ability: That he or she is in a hsp/hsp unit Speech Short Term Goals Short Term Goals Short Term Goals 1) Patient will complete temporal exercises related to herself at 80% or greater. 2) Patient will complete memory tasks with 80% or greater. 3) Patient will complete problem solving tasks related to daily needs at 80% or greater. Speech Usp Goals [employer] Goals Patient will improve memory, problem solving and orientation skills in order to return home safely with increased independence. Speech-Plan Patient/Family Goals Patient/Family Goals: Patient plans to return home with her family post rehab. Treatment Plan Speech Therapy Treatment Plan: Continue Plan of Care Patient would benefit from skilled ST services. Treatment Duration: Mar 20, 2018 Frequency: 5 times per week Estimated Hrs Per Day: .5 hour per day Rehab Potential: Fair Barriers to Learning: Patient has decreased memory. Pt/Family Agrees to Plan: Yes Safety Risks/Education Teaching Recipient: Patient Teaching Methods: Discussion Response to Teaching: Verbalize Understanding Education Topics Provided: Safety procedures within her room, utilization of the call light Time Speech Therapy Time In: 08:30 Speech Therapy Time Out: 08:45 Total Billed Time: 15 Billed Treatment Time 1, VERITO Gordon Mar 12, 2018 09:07
--- NOTE | 2018-03-12 09:54 | Physical Therapy Evaluation ---
PT Evaluation-General Medical Diagnosis Admission Date Mar 11, 2018 at 17:00 Medical Diagnosis: CVA residual Onset Date: Mar 08, 2018 Therapy Diagnosis Therapy Diagnosis: impaired mobility, strength, endurance Height/Weight Height (Feet): 4 Height (Inches): 8.00 Weight (Pounds): 134 Weight (Ounces): 9.0 Precautions Precautions/Isolations: Fall Prevention, Standard Precautions Referral Physician: La Nena Mccullough DO Reason for Referral: Evaluation/Treatment Medical History Pertinent Medical History: CAD, DM, Renal Insufficiency Additional Medical History Past Medical History Surgeries: Cardiac, CABG, Eye Surgery, Hysterectomy, Orthopedic Cardiac: Coronary Artery Disease, High Cholesterol, Hypertension Neurological: Stroke Reproductive: No Sexually Transmitted Disease: No Genitourinary: Renal Failure Gastrointestinal: Chronic Constipation Musculoskeletal: Arthritis Endocrine: Hypothyroidsim, Diabetes, Non-Insulin dep Psychosocial: Depression Reviewed History: Yes Social History Home: Single Level Current Living Status: Other Family Entry Into Home: Stairs Without Railing PT Steps Into Home: 2 Prior/Core FIM Prior Level of Function Therapy Code Descriptions/Definitions Functional [place] Measure: 0=Not Assessed/NA 4=Minimal Assistance 1=Total Assistance 5=Supervision or Setup 2=Maximal Assistance 6=Modified Bladen 3=Moderate Assistance 7=Complete Bl[place] Therapy Quality Codes: 6 Independent with activity with or without an assistive device 5 Patient requires set up or clean up by helper. Patient completes activity by themselves 4 Supervision or touching assist (CGA). Meherrin provide cues , steadying assist 3 The helper provides less than half the effort to complete the activity 2 The helper provides more than half the effort to complete the activity 1 Dependent. The helper does all the effort to complete an activity 7 Patient refused to complete or attempt activity 9 The patient did not perform the activity before the current illness or injury 88 Not attempted due to Medical conditions or safety concerns Functional Abilities and Goals: Independent: Patient completed the activities by him/herself, with or without an assistive device, with no assistance from a helper. Needed Some Help: Patient needed partial assistance from another person to complete activities. Dependent: A helper completed the activities for the patient. Unknown: Not Applicable: Bed Mobility: 7 Transfers (B,C,W/C) (FIM): 7 Gait: 7 Stairs: 7 Indoor Mobility (Ambulation): Independent Stairs: Independent PT Evaluation-Current Subjective Patient in bed pre tx, agrees to PT, no complaints of pain. Pt/Family Goals to be independent at home Objective Patient Orientation: Person, Confused, Situation ROM/Strength ROM Lower Extremities WNL Strenght Lower Extremities LLE 5/5 gross except for hip flexion 4/5, RLE 4/5 gross except for hip flexion 3 +/5 Neuromuscular (Tone, Coordination, Reflexes) Patient states she has not had any changes in hearing. Patient has questionable results on peripheral vision and tracking, she seems to have impairments in both but peripheral vision was impaired on the left and tracking was impaired on the right but she had trouble on the left also. Sensory Hearing: Functional Sensation Right Lower Extremit: Intact Sensation Left Lower Extremity: Intact Sensation Lower Extremities Patient has no complaints of numbness or tingling in legs Transfers Therapy Code Descriptions/Definitions Functional [place] Measure: 0=Not Assessed/NA 4=Minimal Assistance 1=Total Assistance 5=Supervision or Setup 2=Maximal Assistance 6=Modified Bladen 3=Moderate Assistance 7=Complete [place] Therapy Quality Codes: 6 Independent with activity with or without an assistive device 5 Patient requires set up or clean up by helper. Patient completes activity by themselves 4 Supervision or touching assist (CGA). Meherrin provide cues , steadying assist 3 The helper provides less than half the effort to complete the activity 2 The helper provides more than half the effort to complete the activity 1 Dependent. The helper does all the effort to complete an activity 7 Patient refused to complete or attempt activity 9 The patient did not perform the activity before the current illness or injury 88 Not attempted due to Medical conditions or safety concerns Transfers (B, C, W/C) (FIM): 5 Scootin Rollin Roll Left to Right (QC): 4 Supine to/from Sit: 5 Sit to/from Stand: 5 Sit to Lying (QC): 4 Lying to Sitting/Side of Bed(Q: 4 Sit to Stand (QC): 4 Chair/Als-zt-Fdvna Xfer(QC): 4 Car Transfer (QC): 4 Patient performs bed mobility with SBA, supine <-> sit with SBA, sit <-> stand with SBA, transfers with SBA, car transfer CGA. Patient needs cues for safety and direction due to right neglect. Gait Does the Patient Walk?: Yes Mode of Locomotion: Walk Anticipated Mode of Locomotion: Walk Gait (FIM): 5 Walk 10 feet (QC): 4 Walk 50 ft with 2 Turns(QC): 4 Walk 150 ft (QC): 4 Walking 10ft/uneven surface-QC: 4 Distance: 200', 250', 150' Gait Level of Assist: 5 Gait Persons Needed: 1 Gait Assistive Device: None Comments/Gait Description Patient can ambulate 250' without an assistive device with SBA (including 50' with at least 2 turns of 90 degrees and 10' over an uneven surface). Patient needs cues for safety and direction due to right neglect. Wheelchair Training Does the Pt Use a Wheelchair?: No Stairs Stairs (FIM): 2 #of Steps: 4 Level of Assist: 4 1 Step (curb) (QC): 4 4 Steps (QC): 4 Patient can go up and down 4 steps using 1 handrail with CGA. She needs cues for foot placement, is impulsive, has a hard time following directions for step- to steps Balance Sitting Static: Normal Sitting Dynamic: Normal Standing Static: Good Standing Dynamic: Good Treatment Patient scored a 27/28 on the Tinetti Assessment Tool Assessment/Needs Patient has impaired mobility, strength, endurance. She has right neglect a impulsivity on stairs. Patient instructed to use nurse call when she has to get up for now due to right neglect. Patient in recliner post tx with nurse call, phone, tray, all needs met. Rehab Potential: Fair PT Short Term Goals Short Term Goals Time Frame: Mar 19, 2018 Transfers (B,C,W/C) (FIM): 6 Gait (FIM): 5 Gait Distance Comment: 300' Gait Level of Assist: 5 PT Traveling Nurse Goals Correction Goals PT Traveling Nurse Goals Time Frame: Apr 02, 2018 Transfers (B,C,W/C) (FIM): 7 Sit to Lying (QC): 6 Lying-Sitting on Side/Bed(QC): 6 Sit to Stand (QC): 6 Rollin Roll Left to Right (QC): 6 Chair/Oqo-hc-Mswqu Xfer(QC): 6 Car Transfer (QC): 6 Gait (FIM): 7 Distance: 500' Walk 10 feet (QC): 6 Walk 10ft-Uneven Surface(QC): 6 Walk 50ft with 2 Turns (QC): 6 Walk 150 ft (QC): 6 Gait Level of Assist: 7 Gait Assistive Device: None Stairs (FIM): 5 # of Steps: 12 1 Step (curb) (QC): 4 4 Steps (QC): 4 12 Steps (QC): 4 Stairs Level Of Assist: 5 PT Plan Problem List Problem List: Activity Tolerance, Functional Strength, Safety, Balance, Gait, Transfer Treatment/Plan Treatment Plan: Continue Plan of Care Treatment Plan: Bed Mobility, Education, Functional Activity Sergey, Functional Strength, Group Therapy, Gait, Safety, Therapeutic Exercise, Transfers Treatment Duration: Apr 02, 2018 Frequency: At least 5 of 7 days/Wk (IRF) Estimated Hrs Per Day: 1.5 hours per day Patient and/or Family Agrees t: Yes Safety Risks/Education Patient Education: Gait Training, Transfer Techniques, Steps, Correct Positioning, Safety Issues Teaching Recipient: Patient Teaching Methods: Demonstration, Discussion Response to Teaching: Reinforcement Needed Discharge Recommendations Plan Patient will perform bed mobility and transfer training, balance and endurance training, functional strengthening, stair training, gait training, and education , to improve functional mobility and independence at home. Therapy D/C Recommendations: Home w/ Family Support Time/GCodes Time In: 0900 Time Out: 1000 Total Billed Treatment Time: 60 Total Billed Treatment 1 visit EVM 30' NM 10' GT 20' RONAL POTTS PT Mar 12, 2018 09:54
--- NOTE | 2018-03-12 10:04 | NUR ---
SET THE MED REC TO NO MEDICATIONS AT THIS TIME. THE LIST HOME MEDS THAT WERE CONTINUED ON DISCHARGE FROM HAVE NOT BEEN FILLED RECENTLY. WHEN I ASKED THE PATIENT ABOUT HER MEDICATION SHE STATED SHE HAS NOT BEEN TAKING THEM FOR SOME TIME, SHE STATES SHE GETS EVERYTHING FILLED AT [facility]. THE FOLLOWING IS A LIST OF MEDICATIONS THAT WERE SAID TO BE CONTINUED ON DISCHARGE FROM AND THE DATES THEY WERE LAST FILLED AT [facility]. LIPITOR 40MG HS (NOT ON FILE AT [facility]) ZETIA 10MG DAILY (NOT ON FILE AT [facility]) CITALOPRAM 20MG DAILY (NOT ON FILE AT [facility]) PLAVIX 75MG DAILY (LAST FILLED #90 18) COREG 25MG BID (LAST FILLED #180 18) FAMOTIDINE 20MG BID (LAST FILLED ONE DAILY #90 08-13-18) LISINOPRIL 5MG DAILY (LAST FILLED #90 618) ASPIRIN 81MG DAILY CHEW(PATIENT STATED SHE DID TAKE THIS OTC BUT ONLY NEEDED FOR PAIN)
--- NOTE | 2018-03-12 10:45 | NUR ---
RENAL DOSED FAMOTIDINE TO 20MG PO DAILY DUE TO ESTIMATED CRCL ~ 30
--- NOTE | 2018-03-12 11:18 | NUR ---
Called to Therapy room by OT. Patient sitting in chair, unresponsive. Patient pale, warm to touch, clammy, no responding to verbal or tactile stimuli. Patient proceeded to have a BM, blink returned. Patient appeared to respond to voice and touch, but would quickly return to unresponsive status. Dr. Mccullough called, responded to room at 1120. Patient moved to therapy table by two person lift. VS: BP 112/62, HR 65, O2 99%, BG 182. Rapid response called. ICU director, , [facility], and Ana, Home Weatherizing Worker responded to Rapid Response. 1125. Patient began to arouse to verbal and tactile stimuli. Responsive to name. Dr. Mccullough gave orders for IV bolus of NS and transfer patient to ICU. Patient transferred to ICU-8 at 1148 Report given to Jayde ORTIZ Addendum: 03/12/18 at 1404 by AR LUNA RN 1200: Attempted to contact Patient's son regarding episode and transfer to ICU. No answer or message service.
[2018-03-12 11:20] VITALS: BP 112/62
[2018-03-12] MEDS ORDERED: NS IV 1000 ML 1,000 ML ONE (11:21)
--- NOTE | 2018-03-12 11:42 | PM&R Progress Note ---
ERVIN TRAN DO 03/12/18 1142: Subjective HPI/CC On Admission Date Seen by Provider: Mar 12, 2018 Time Seen by Provider: 11:15 Subjective/Events-last exam Patient was seen this morning at 0745 hours and had a good night Patient was assessed and reviewed all meds and therapy started her day. Weakness on the right upper arm is 3 out of 5 versus 4 out of 5 Aphasia and difficulty finding words is noted no change from prior Was called by Ana ORTIZ at 1115 due to change of status during therapy in the gym with complete unresponsiveness. I arrived at her side immediately found her unresponsive with agonal breathing but was able to assess a pulse although thready. Patient was pale and ashen and was supine on physical therapy bed. Blood sugar 182. Blood pressure 100/40 and heart rate 65 when it was assessed and manual matched that number. Patient became more alert after her Dr. Gore consultation occurred at her side. IV fluids were given of normal saline bolus and consultation with Dr. Borges ensued considering ischemic cardiomyopathy history with a pacemaker. I've classified this as a hypovolemic vasovagal syncopal episode and will transfer to the ICU for observation overnight for IV fluids and cardiology and critical care consultations. Review of Systems General: Fatigue Neurological: Weakness, Change in speech, Confusion Objective Exam Vital Signs Vital Signs Date Time Temp Pulse Resp B/P (MAP) Pulse Ox O2 Delivery O2 Flow Rate FiO2 03/12/18 11:20 65 16 99 03/12/18 09:00 Room Air 03/12/18 08:30 101/66 (78) 03/12/18 05:25 97.8 Capillary Refill : General Appearance: No Apparent Distress, WD/WN, Chronically ill Respiratory: Chest Non Tender, Lungs Clear, Normal Breath Sounds, No Accessory Muscle Use, No Respiratory Distress Cardiovascular: Regular Rate, Rhythm, No Edema, No Gallop, No JVD, No Murmur, Normal Peripheral Pulses 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, Oriented x3, No Motor/Sensory Deficits, Normal Mood/Affect, Motor Weakness (right upper arm) Results/Procedures Lab Laboratory Tests 03/12/18 05:20 Patient resulted labs reviewed. Assessment/Plan Assessment and Plan Assess & Plan/Chief Complaint Assessment: Acute episode of syncope due to vasovagal and hypovolemia requiring transfer to ICU for observation and critical care and Cardiology evaluation Subacute CVA with mild hemorrhagic spread of the left MCA distribution status post TPA outside hospital prior to transfer to with a facial and right upper extremity weakness Episode of hypovolemic vasovagal syncopal episode requiring rapid response team and critical care consultation and transferred to the ICU 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 ejection fraction 35 percent to Diabetes mellitus out of control Chronic renal insufficiency Noncompliance with medications and medical management in the past Plan: Cardiology consultation Critical care consultation IV fluid Lab evaluation Monitor closely Likely will resume therapy services in inpatient rehabilitation tomorrow Diagnosis/Problems Diagnosis/Problems (1) Syncope and collapse Status: Acute (2) Cerebrovascular accident (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 Status: Acute (3) CAD (coronary artery disease) Status: Chronic Qualifiers: Coronary Disease-Associated Artery/Lesion type: [place] artery [place] vs. transplanted heart: [place] heart Associated angina: without angina Qualified Codes: I25.10 - Atherosclerotic heart disease of [place] coronary artery without angina pectoris (4) Pacemaker Status: Chronic (5) Renal insufficiency Status: Chronic (6) Hyperlipidemia Status: Chronic Qualifiers: Hyperlipidemia type: mixed hyperlipidemia Qualified Codes: E78.2 - Mixed hyperlipidemia (7) Noncompliance Status: Chronic (8) Disorientation Status: Acute (9) Aphasia Status: Acute (10) Memory deficit Status: Acute (11) Elevated troponin Status: Acute Clinical Quality Measures DVT/VTE Risk/Contraindication: Risk Factor Score Per Nursin RFS Level Per Nursing on Admit: 4+=Very High EDMUNDO STRICKLAND MEDICAL STUDENT 03/12/18 1237: Objective Exam General Appearance: No Apparent Distress, WD/WN HEENT: PERRL/EOMI Respiratory: Lungs Clear, Normal Breath Sounds, No Respiratory Distress Cardiovascular: Regular Rate, Rhythm 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, Oriented x3, used building materials yard worker II-XII Norm as Tested, Motor Weakness (right upper arm, right core maker strength), Other (right pronator drift, decreased core maker strength on right, ) ERVIN TRAN DO Mar 12, 2018 11:42 EDMUNDO STRICKLAND MEDICAL STUDENT Mar 12, 2018 12:37
--- NOTE | 2018-03-12 12:16 | PM&R Post Admission Assessment ---
Post Admission Physician Asses Admisison Dx: (1) Cerebrovascular accident (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 Status: Acute (2) CAD (coronary artery disease) Status: Chronic (3) Pacemaker Status: Chronic (4) Renal insufficiency Status: Chronic (5) Hyperlipidemia Status: Chronic (6) Noncompliance Status: Chronic (7) Disorientation Status: Acute (8) Aphasia Status: Acute (9) Memory deficit Status: Acute (10) Elevated troponin Status: Acute The preadmission screen agrees with the post admission assessment that the patient is a good candidate for inpatient rehabilitation. The patient will have a comprehensive program of inpatient rehabilitation with a goal of maximizing level of functional independence prior to discharge home with [family]. The patient will have PT/OT ninety minutes per day, each discipline, five days a week for gait, strengthening, conditioning, balance, ADLs, any patient/family/caregiver training as necessary. Speech therapy to do cognitive assessment and treat as indicated. Rehabilitation nursing to assist with bowel, bladder, skin, wound care, medication administration, pain management. Access Lead to assist with discharge planning, community reentry. SCD's for DVT prophylaxis. She appears to be well motivated to participate in three hours of therapy a day. She should be able to tolerate three hours of therapy a day from a medical standpoint. She should benefit from the three hours of therapy a day. She has a reasonable discharge plan, reasonable discharge rehabilitation goals and a supportive family. She has various comorbidities that need to be closely monitored with medications and treatments adjusted on a daily basis as needed. These include: [see above] Barriers to discharge for this patient who had been independent prior to this are for her to be modified independent to supervision for ADLs and mobility skills prior to discharge home with [family], so as to lessen the burden of the caregivers. Risks for this patient include: 1. Fall 2. Fracture 3. DVT 4. Pulmonary embolism 5. Wound infection 6. Skin breakdown 7. Contractures 8. Poorly controlled pain 9. Urinary retention 10. UTI 11. Respiratory infection 12. Aspiration [] Estimated Length of Stay: [14]days Prognosis: Rehab prognosis appears good for goal of discharge home with [family ] modified independent to supervision for ADLs and mobility skills. General: Alert, Cooperative, Other (O x 1-2) Neck: Supple, No Thyromegaly Lungs: Clear to Auscultation, Normal Air Movement Heart: Regular Rate, Normal S1, Normal S2 Neuro: Cranial Nerves 3-12 NL, Reflexes 2+, Other (speech impaired and word finding deficient) ERVIN TRAN DO Mar 12, 2018 12:16
--- NOTE | 2018-03-12 12:40 | Occupational Therapy Eval ---
OT Evaluation-General/PLF Medical Diagnosis Admission Date Mar 12, 2018 at 11:30 Medical Diagnosis: CVA Onset Date: Mar 11, 2018 Therapy Diagnosis Therapy Diagnosis: Weakness Height/Weight Height (Feet): 5 Height (Inches): 0.00 Weight (Pounds): 146 Weight (Ounces): 6.0 Weight Bear Status Weight Bearing Restriction: Weight Bearing/Tolerated Referral Physician: Dr. Mccullough Referral Reason: Activity Tolerance, Self Care, Evaluation/Treatment, Strengthening/ROM Medical History Pertinent Medical History: CAD, DM, HTN, Renal Insufficiency Additional Medical History Pacemaker Current History Pt. sustained CVA. Received TPA. Demonstrated right sided weakness and aphasia after treatment. Reviewed History: Yes Social History Pt. is inconsistent with questions during interview process. Pt. states that she lives in [place], but then states that she lives in [place]. Pt. also states that she lives with her son and [id number]. ADL-Prior Level of Function Therapy Code Descriptions/Definitions Functional [place] Measure: 0=Not Assessed/NA 4=Minimal Assistance 1=Total Assistance 5=Supervision or Setup 2=Maximal Assistance 6=Modified [place] 3=Moderate Assistance 7=Complete [place] Therapy Quality Codes: 6 Independent with activity with or without an assistive device 5 Patient requires set up or clean up by helper. Patient completes activity by themselves 4 Supervision or touching assist (CGA). [place] provide cues , steadying assist 3 The helper provides less than half the effort to complete the activity 2 The helper provides more than half the effort to complete the activity 1 Dependent. The helper does all the effort to complete an activity 7 Patient refused to complete or attempt activity 9 The patient did not perform the activity before the current illness or injury 88 Not attempted due to Medical conditions or safety concerns Functional Abilities and Goals: Independent: Patient completed the activities by him/herself, with or without an assistive device, with no assistance from a helper. Needed Some Help: Patient needed partial assistance from another person to complete activities. Dependent: A helper completed the activities for the patient. Unknown: Not Applicable: ADL PLOF Comments Pt. indicates that she was independent with daily tasks prior to CVA. Self Care: Unknown Functional Cognition: Unknown OT Current Status Subjective Please see note below. Current Hand Dominance: Right Upper Extremity ROM Pt. is able to demonstrate approximately 90 degrees shoulder flexion with UE testing. Upper Extremity Strength Right UE- 2+/5 Left UE- 3/5 ADL-Treatment Grooming (FIM): 4 (Pt. stood at sink with CGA to brush hair and teeth.) Oral Hygiene (QC): 4 Bathing (FIM): 4 (Pt. requires CGA at times to shower self in stance. Requires cues to sit for safety.) Shower/Bathe Self (QC): 4 Lower Body Dressing (FIM): 5 (Pt. able to doff/don slipper socks. No other street clothing available.) Lower Body Dressing (QC): 4 On/Off Footwear (QC): 4 Toileting (FIM): 5 (SBA in bathroom to toilet self after BM.) Toileting Hygiene (QC): 4 Transfers (B, C, W/C) (FIM): 5 (SBA to ambulate without assistive device.) Toilet/Commode Transfer (FIM): 5 Toilet Transfer (QC): 4 Shower Transfer (FIM): 5 OT completed evaluation beginning in room with shower/ADLs. Pt. does not verbalize very much, but does answer questions accordingly. Some answers are known to be incorrect, but does catch herself at times. After ADLs in room, pt. ambulated with no assistive device with SBA to therapy gym. Agreed to complete visual assessment to determine visual neglect/field cuts due to CVA. Pt. able to participate through most of assessment. However, became quiet, demonstrated fixed eyes, and opened mouth. Pt. unable to respond while sitting in chair, and at this point, nursing assistance was called for. Nursing came into gym immediately, as did other therapy staff. Physician called immediately and came to assess pt. Rapid response called and team assessed pt. Pt. was transferred to ICU for monitoring at this point. OT Short Term Goals Short Term Goals 1=Demonstrate adherence to instructed precautions during ADL tasks. 2=Patient will verbalize/demonstrate understanding of assistive devices/ modifications for ADL. 3=Patient will improve strength/tolerance for activity to enable patient to perform ADL's. OT Penitentiary Goals Broach Trouble Shooter Goals Time Frame: Mar 26, 2018 Eating (FIM): 6 Eating (QC): 6 Groomin Oral Hygiene (QC): 6 Bathing(FIM): 5 Shower/Bathe Self (QC): 5 Upper Body Dressing(FIM): 6 Upper Body Dressing (QC): 6 Lower Body Dressing(FIM): 6 Lower Body Dressing (QC): 6 On/Off Footwear (QC): 6 Toileting(FIM): 6 Toileting Hygiene (QC): 6 Transfers (B,C,W/C) (FIM): 6 Toilet/Commode Transfer(FIM): 6 Toilet/Commode Transfer (QC): 6 Shower Transfer(FIM): 5 Please note that these goals will be dependent upon pt's return to rehab unit after appropriate treatment in ICU setting. Additional Goals: 1-Demonstrate ADL Tasks, 2-Verbalize Understanding, 3- ImproveStrength/Sergey 1=Demonstrate adherence to instructed precautions during ADL tasks. 2=Patient will verbalize/demonstrate understanding of assistive devices/ modifications for ADL. 3=Patient will improve strength/tolerance for activity to enable patient to perform ADL's. OT Education/Plan Problem List/Assessment Assessment: Decreased UE Strength, Impaired I ADL's, Impaired Self-Care Skills Discharge Recommendations Plan/Recommendations: Continue POC Comment Goals will fully be written and re-assessed based on pt's recovery from episode. Treatment Plan/Plan of Care Treatment,Training & Education: Yes Patient would benefit from OT for education, treatment and training to promote independence in ADL's, mobility, safety and/or upper extremity function for ADL' s. Plan of Care: ADL Retraining, Functional Mobility, Group Exercise/Act as Ind, UE Funct Exercise/Act Treatment Duration: Mar 26, 2018 Frequency: At least 5 of 7 days/Wk (IRF) Estimated Hrs Per Day: 1.5 hours per day Agreement: Yes Rehab Potential: Fair Time/GCodes Start Time: 10:15 Stop Time: 11:20 Total Time Billed (hr/min): 65 Billed Treatment Time 1, EVM x 15minutes, ADL x 30minutes, FA x 20minutes CLAUDIA THOMPSON OT Mar 12, 2018 12:40
--- NOTE | 2018-03-13 10:20 | Physical Therapy Progress Note ---
Therapy Progress Note Pt has returned from ICU. Checked pt and plan to resume with current PT POC and goals as established at initial evaluation. JOHN ALBARADO PT Mar 13, 2018 10:20
--- NOTE | 2018-03-13 10:26 | Speech Therapy Daily Note ---
Speech Daily Progress Note Subjective Date Seen by Provider: Mar 13, 2018 Time Seen by Provider: 00:30 Patient has just returned from the ICU. Objective Patient completed a series of memory/word finding tasks with 80% given minimal cues. Assessment Assessment Current Status: Good Progress Treatment Plan Continue Plan of Care Communication Comprehension: 3 Expression: 3 Social Cognition Social Interaction: 4 Problem Solvin Memory: 2 Speech Short Term Goals Short Term Goals Short Term Goals 1) Patient will complete temporal exercises related to herself at 80% or greater. 2) Patient will complete memory tasks with 80% or greater. 3) Patient will complete problem solving tasks related to daily needs at 80% or greater. Speech Core Maker Goals Core Maker Goals Patient will improve memory, problem solving and orientation skills in order to return home safely with increased independence. Speech-Plan Patient/Family Goals Patient/Family Goals: Patient plans to return home with family post rehab. Treatment Plan Speech Therapy Treatment Plan: Continue Plan of Care Patient is progressing well with skilled ST services. Treatment Duration: Mar 20, 2018 Frequency: 5 times per week Estimated Hrs Per Day: .5 hour per day Rehab Potential: Fair Barriers to Learning: Patient has recently had a CVA. Pt/Family Agrees to Plan: Yes Safety Risks/Education Teaching Recipient: Patient Teaching Methods: Discussion Response to Teaching: Verbalize Understanding Education Topics Provided: Safety within her room. Time Speech Therapy Time In: 09:40 Speech Therapy Time Out: 10:10 Total Billed Time: 30 Billed Treatment Time 1CH[address]I [address] Mar 13, 2018 10:26
[2018-03-13 10:30] VITALS: BP 137/74
--- NOTE | 2018-03-13 11:37 | Occ Therapy Progress Note ---
Therapy Progress Note Pt returned to ARU after overnight observation in ICU. Plan to resume therapy this date and continue with current plan of care as established in initial evaluation. HORACE PHILIPPE OT Mar 13, 2018 11:37
--- NOTE | 2018-03-13 12:03 | Physical Therapy Daily Note ---
PT Daily Note-Current Subjective Pt. agrees to Rx, but is flat in affect and a little tearful. Pain Location: No Pain Reported Mental Status pt. could not states her first middle and last name. reoriented to name, place etc by this MANAGER ACADEMIC Transfers Therapy Code Descriptions/Definitions Functional [place] Measure: 0=Not Assessed/NA 4=Minimal Assistance 1=Total Assistance 5=Supervision or Setup 2=Maximal Assistance 6=Modified [place] 3=Moderate Assistance 7=Complete [place] Therapy Quality Codes: 6 Independent with activity with or without an assistive device 5 Patient requires set up or clean up by helper. Patient completes activity by themselves 4 Supervision or touching assist (CGA). [place] provide cues , steadying assist 3 The helper provides less than half the effort to complete the activity 2 The helper provides more than half the effort to complete the activity 1 Dependent. The helper does all the effort to complete an activity 7 Patient refused to complete or attempt activity 9 The patient did not perform the activity before the current illness or injury 88 Not attempted due to Medical conditions or safety concerns Transfers (B, C, W/C) (FIM): 5 Scootin Rollin Supine to/from Sit: 5 Sit to/from Stand: 5 needs direction and guidance secondary to visual and cognitive deficit Gait Training Does the Patient Walk?: Yes Gait (FIM): 5 Distance (FIM): 3=150 ft (225x2) Gait Level of Assist: 5 Gait Persons Needed: 1 Gait Assistive Device: None guided/directed for all mobility, see above Exercises Supine Ex: Bridging, Ankle pumps, Quad Set, Rolling, Glut sets, Heel Slides, Short Arc Quads, Scooting, Straight leg raise, Hip abd/add Supine Reps: 15 Seated Therapy Exercises: Ankle pumps, Sit to stand, Long arc quads, Hip flexion Seated Reps: 15 Standing: Hip Abduction, Heel/toe raises, Marching, Mini squats, Sit to Stand Standing Reps: 15 side lying and prone exercises x 12 NuStep Minutes: 8 NuStep Workload: 2 Treatments BP in 3 positions: supine: 142/80, HR 74 sittin/76, HR 71 standin/83, HR 71 Assessment Current Status: Good Progress visual and cognitive deficits limit function PT Short Term Goals Short Term Goals Time Frame: Mar 19, 2018 Transfers (B,C,W/C) (FIM): 6 Gait (FIM): 5 Gait Distance Comment: 300' Gait Level of Assist: 5 PT Director Of Casino Marketing Goals Intermediate Goals PT Director Of Casino Marketing Goals Time Frame: Apr 02, 2018 Transfers (B,C,W/C) (FIM): 7 Sit to Lying (QC): 6 Lying-Sitting on Side/Bed(QC): 6 Sit to Stand (QC): 6 Rollin Roll Left to Right (QC): 6 Chair/Aku-po-Leuet Xfer(QC): 6 Car Transfer (QC): 6 Gait (FIM): 7 Distance: 500' Walk 10 feet (QC): 6 Walk 10ft-Uneven Surface(QC): 6 Walk 50ft with 2 Turns (QC): 6 Walk 150 ft (QC): 6 Gait Level of Assist: 7 Gait Assistive Device: None Stairs (FIM): 5 # of Steps: 12 1 Step (curb) (QC): 4 4 Steps (QC): 4 12 Steps (QC): 4 Stairs Level Of Assist: 5 PT Plan Treatment/Plan Treatment Plan: Continue Plan of Care Treatment Plan: Bed Mobility, Education, Functional Activity Sergey, Functional Strength, Group Therapy, Gait, Safety, Therapeutic Exercise, Transfers Treatment Duration: Apr 02, 2018 Frequency: At least 5 of 7 days/Wk (IRF) Estimated Hrs Per Day: 1.5 hours per day Patient and/or Family Agrees t: Yes Safety Risks/Education Patient Education: Gait Training, Transfer Techniques, Correct Positioning, Disease Process, Safety Issues Teaching Recipient: Patient Teaching Methods: Demonstration, Discussion Response to Teaching: Verbalize Understanding, Return Demonstration, Unable to Comprehend, Reinforcement Needed Time/GCodes Time In: 1100 Time Out: 1215 Total Billed Treatment Time: 75 Total Billed Treatment 1,EX45m,GT20m,FA10 G Codes Necessary: SHABANA Sousa MANAGER ACADEMIC Mar 13, 2018 12:03
--- NOTE | 2018-03-13 12:05 | Occupational Ther Daily Note ---
OT Current Status-Daily Note Subjective Pt lying in bed, alert. Pt agrees to therapy. No c/o pain. Mental Status/Objective Patient Orientation: Person Therapy Code Descriptions/Definitions Functional [place] Measure: 0=Not Assessed/NA 4=Minimal Assistance 1=Total Assistance 5=Supervision or Setup 2=Maximal Assistance 6=Modified [place] 3=Moderate Assistance 7=Complete [place] Attachments: IV ADL-Treatment Pt declined shower at this time. Therapy Code Descriptions/Definitions Functional [place] Measure: 0=Not Assessed/NA 4=Minimal Assistance 1=Total Assistance 5=Supervision or Setup 2=Maximal Assistance 6=Modified [place] 3=Moderate Assistance 7=Complete [place] Therapy Quality Codes: 6 Independent with activity with or without an assistive device 5 Patient requires set up or clean up by helper. Patient completes activity by themselves 4 Supervision or touching assist (CGA). [place] provide cues , steadying assist 3 The helper provides less than half the effort to complete the activity 2 The helper provides more than half the effort to complete the activity 1 Dependent. The helper does all the effort to complete an activity 7 Patient refused to complete or attempt activity 9 The patient did not perform the activity before the current illness or injury 88 Not attempted due to Medical conditions or safety concerns Grooming (FIM): 5 (Sitting at sink, pt able to complete grooming. Pt unable to distinguish between toothpaste and lotion.) Oral Hygiene (QC): 4 (Supervision for safety. ) Bathing (FIM): 5 (After set up for sponge bath, pt able to complete bathing. SBA in standing to cleanse buttocks/jose area.) Bathing Location: L Arm, R Arm, L Upper Leg, R Upper Leg, L Lower Leg ( including foot), R Lower Leg (including foot), Chest, Abdomen, Buttocks, Perineal Area Shower/Bathe Self (QC): 4 (Supervision for safety.) Upper Body (FIM): 5 (After set up, pt able to complete by self.) Upper Body Dressing (QC): 5 Lower Body Dressing (FIM): 5 (SBA for safety when standing to hike pants over hips. Pt able to complete dressing after set up.) Lower Body Dressing (QC): 4 On/Off Footwear (QC): 4 (Donns/doffs by self. Supervision for safety.) Toileting (FIM): 5 (SBA using grabbars for hygiene and clothing manipulation.) Toileting Hygiene (QC): 4 Toilet/Commode Transfer (FIM): 4 (CGA for safety using grabbars) Toilet Transfer (QC): 4 Other Treatment Pt completed 6 piece interlocking puzzle with minimal difficulty sequencing and visual spacial awareness. Color matching clothespins task completed for coordination and multiple step sequence, pt had difficulty with attention and matching colors. Pt would rotate tray so clothespins would be in front of face , would lose items when in peripheral vision bilaterally. Pt then given a simple 3 step matching with small items to sort by color. Pt able to bulk picker small items and manipulate multiple items in hand, unable to attend and sort correctly. PT took over care of pt in therapy gym. All needs met. OT Short Term Goals Short Term Goals Transfers (B,C,W/C) (FIM): 6 1=Demonstrate adherence to instructed precautions during ADL tasks. 2=Patient will verbalize/demonstrate understanding of assistive devices/ modifications for ADL. 3=Patient will improve strength/tolerance for activity to enable patient to perform ADL's. OT Shelter Goals Shelter Goals 1=Demonstrate adherence to instructed precautions during ADL tasks. 2=Patient will verbalize/demonstrate understanding of assistive devices/ modifications for ADL. 3=Patient will improve strength/tolerance for activity to enable patient to perform ADL's. OT Education/Plan Discharge Recommendations Plan/Recommendations: Continue POC Treatment Plan/Plan of Care Patient would benefit from OT for education, treatment and training to promote independence in ADL's, mobility, safety and/or upper extremity function for ADL' s. Plan of Care: ADL Retraining Treatment Duration: Mar 26, 2018 Frequency: At least 5 of 7 days/Wk (IRF) Estimated Hrs Per Day: 1.5 hours per day Rehab Potential: Fair Time/GCodes Start Time: 10:15 Stop Time: 11:00 Total Time Billed (hr/min): 45 Billed Treatment Time 1 visit-ADL 2 (25 min) EX 1 (20 min) JOHN HOANG Mar 13, 2018 12:05
--- NOTE | 2018-03-13 12:05 | NUR ---
Pt resting in recliner after working w therapy, denies pain, continue to reply that "Kavin Page" is President, when asked. States her name & BD correctly, states that she has 3 sons, Gautam, who lives w her. Pt states that she had 2 other sons, Salvatore, & Ang, but, both have . Reports that she has no grandchildren. States that she has a brother, Thomas Palomo, that lives in [facility], but, pt isn't sure if he's still living or not. Addendum: 03/13/18 at 1212 by JOSUE MENDEZ RN Pt states that her son, Gautam, doesn't work, is usually at home, in case needed for calls or emergency #.
--- NOTE | 2018-03-13 12:15 | NUR ---
Pt states that she worked at [employer] for 13 years.
--- NOTE | 2018-03-13 12:37 | Occupational Ther Daily Note ---
OT Current Status-Daily Note Subjective Pt alert, sitting up in recliner. Pt agrees to therapy. No c/o pain at this time. Just states I want to get to go home. Mental Status/Objective Patient Orientation: Person, Place Therapy Code Descriptions/Definitions Functional [place] Measure: 0=Not Assessed/NA 4=Minimal Assistance 1=Total Assistance 5=Supervision or Setup 2=Maximal Assistance 6=Modified [place] 3=Moderate Assistance 7=Complete [place] Attachments: IV ADL-Treatment Pt loses items that are on bilateral peripheral vision. Pt will only reach for items in front of face. Does not compensate for visual neglect. When alerted to where items are, pt will turn to area then turn head back to midline and continue to work in midline. Pt takes time to complete task and takes increased time. After therapy, pt sitting in recliner finishing up eating. Call light/phone in reach. All needs met in room. Therapy Code Descriptions/Definitions Functional [place] Measure: 0=Not Assessed/NA 4=Minimal Assistance 1=Total Assistance 5=Supervision or Setup 2=Maximal Assistance 6=Modified [place] 3=Moderate Assistance 7=Complete [place] Therapy Quality Codes: 6 Independent with activity with or without an assistive device 5 Patient requires set up or clean up by helper. Patient completes activity by themselves 4 Supervision or touching assist (CGA). [place] provide cues , steadying assist 3 The helper provides less than half the effort to complete the activity 2 The helper provides more than half the effort to complete the activity 1 Dependent. The helper does all the effort to complete an activity 7 Patient refused to complete or attempt activity 9 The patient did not perform the activity before the current illness or injury 88 Not attempted due to Medical conditions or safety concerns Eating (FIM): 5 (Dentures. Pt able to open containers/packages then use regular utensils to eat.) Eating (QC): 5 OT Short Term Goals Short Term Goals Transfers (B,C,W/C) (FIM): 6 1=Demonstrate adherence to instructed precautions during ADL tasks. 2=Patient will verbalize/demonstrate understanding of assistive devices/ modifications for ADL. 3=Patient will improve strength/tolerance for activity to enable patient to perform ADL's. OT Longterm Goals Double End Sewer Goals 1=Demonstrate adherence to instructed precautions during ADL tasks. 2=Patient will verbalize/demonstrate understanding of assistive devices/ modifications for ADL. 3=Patient will improve strength/tolerance for activity to enable patient to perform ADL's. OT Education/Plan Discharge Recommendations Plan/Recommendations: Continue POC Treatment Plan/Plan of Care Patient would benefit from OT for education, treatment and training to promote independence in ADL's, mobility, safety and/or upper extremity function for ADL' s. Treatment Duration: Mar 26, 2018 Frequency: At least 5 of 7 days/Wk (IRF) Estimated Hrs Per Day: 1.5 hours per day Rehab Potential: Fair Time/GCodes Start Time: 12:30 Stop Time: 13:00 Total Time Billed (hr/min): 30 Billed Treatment Time 1 visit-ADL 2 (30 min) JOHN HOANG Mar 13, 2018 12:36
--- NOTE | 2018-03-13 12:51 | Progress Note-Hospitalist ---
Subjective HPI/CC On Admission Date Seen by Provider: Mar 13, 2018 Time Seen by Provider: 10:00 Subjective/Events-last exam See acute progress note from ICU Objective Exam Vital Signs Vital Signs Date Time Temp Pulse Resp B/P (MAP) Pulse Ox O2 Delivery O2 Flow Rate FiO2 03/14/18 09:26 Room Air 03/14/18 08:15 80 150/74 (99) 03/14/18 05:06 97.2 17 97 Capillary Refill : General Appearance: No Apparent Distress, WD/WN, Chronically ill Respiratory: Chest Non Tender, Lungs Clear, Normal Breath Sounds, No Accessory Muscle Use, No Respiratory Distress Cardiovascular: Regular Rate, Rhythm, No Edema, No Gallop, No JVD, No Murmur, Normal Peripheral Pulses 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, No Motor/Sensory Deficits, research environmental scientist II-XII Norm as Tested Skin: Normal Color, Warm/Dry Results/Procedures Lab Patient resulted labs reviewed. Assessment/Plan Assessment and Plan Assess & Plan/Chief Complaint Assessment: s/p acute episode of syncope due to vasovagal and hypovolemia requiring transfer to ICU for observation and critical care and Cardiology evaluation Subacute CVA with mild hemorrhagic spread of the left MCA distribution status post TPA outside hospital prior to transfer to with a facial and right upper extremity weakness Assessment: Episode of hypovolemic vasovagal syncopal episode requiring rapid response team and critical care consultation and transferred to the ICU now completed resolved CVA subacute s/p tPA OSH before transfer to [facility] 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 ejection fraction 35 percent to [facility] Diabetes mellitus out of control Chronic renal insufficiency Noncompliance with medications and medical management in the past Hypothyroidism Plan: Cardiology consultation is appreciated Monitor closely Therapy services to continue Diagnosis/Problems Diagnosis/Problems (1) Syncope and collapse Status: Resolved Resolution Date/Time: 03/13/18 @ 12:38 (2) Cerebrovascular accident (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 Status: Chronic (3) CAD (coronary artery disease) Status: Chronic Qualifiers: Coronary Disease-Associated Artery/Lesion type: [place] artery [place] vs. transplanted heart: [place] heart Associated angina: without angina Qualified Codes: I25.10 - Atherosclerotic heart disease of [place] coronary artery without angina pectoris (4) Pacemaker Status: Chronic (5) Renal insufficiency Status: Chronic (6) Hyperlipidemia Status: Chronic Qualifiers: Hyperlipidemia type: mixed hyperlipidemia Qualified Codes: E78.2 - Mixed hyperlipidemia (7) Noncompliance Status: Chronic (8) Disorientation Status: Acute (9) Aphasia Status: Acute (10) Memory deficit Status: Acute (11) Elevated troponin Status: Resolved Resolution Date/Time: 03/13/18 @ 12:38 Clinical Quality Measures DVT/VTE Risk/Contraindication: Risk Factor Score Per Nursin RFS Level Per Nursing on Admit: 4+=Very High ERVIN TRAN DO Mar 13, 2018 12:51
--- NOTE | 2018-03-13 14:09 | NUR ---
Pt walked out to doorway of her room, states that she is lonely; is teary. Attempts to re-orient. Raven VILLEGAS taking pt down to 1st floor to look at the aquarium & fish.
[2018-03-13] MEDS: ENOXAPARIN 40 MG/0.4 ML (LOVENOX) SYR SC SCH ×2 (14:13→20:44)
[2018-03-13] MEDS: inSUlin ASPART (NovoLOG) 1 UNIT/0.01 ML (CHARGE PER UNIT) SC SCH ×5 (14:13→21:00)
[2018-03-13] MEDS: ATORVASTATIN 40 MG (LIPITOR) TABLET PO SCH ×2 (14:15→20:44)
[2018-03-13] MEDS: eZETimibe 10 MG (ZETIA) TABLET PO SCH ×2 (14:16→20:44)
[2018-03-13] MEDS: FAMOTIDINE 20 MG (PEPCID) TABLET PO SCH (14:17)
[2018-03-13] MEDS: ASPIRIN E.C. 81 MG (ECOTRIN) TAB PO SCH (14:17)
[2018-03-13] MEDS: CLOPIDOGREL 75 MG (PLAVIX) TABLET PO SCH (14:18)
[2018-03-13] MEDS: lisINopril 5 MG (PRINIVIL) TABLET PO SCH (14:18)
--- NOTE | 2018-03-13 14:19 | NUR ---
Call to Pharmacy, spoke kenroy Watts re: EMAR, the meds that were in pink from yesterday & earlier today while pt was in ICU. Stefanie stated to non-administer them, that pt was off the floor.
--- NOTE | 2018-03-13 14:35 | Physical Therapy Progress Note ---
Therapy Progress Note This note is from 03/12/17, it was posted to the wrong account. Patient will not be seen by PT this afternoon. She was transferred to the ICU due to a change in medical status. Will await new orders. RONAL POTTS PT Mar 13, 2018 14:35
--- NOTE | 2018-03-13 15:12 | NUR ---
PHOTO TECH attempted to complete initial assessment; however, patient is oriented to self and information is inconsistent. PHOTO TECH attempted to reach patient's sonGautam to inquire about baseline functioning; however, there was no answer. PHOTO TECH will reattempt.
--- NOTE | 2018-03-13 18:28 | NUR ---
received orders from Dr. Mccullough to re-start Synthroid 25 mcg daily as was previously ordered when pt in ICU.
[2018-03-13 18:52] VITALS: BP 173/95
--- NOTE | 2018-03-13 19:22 | NUR ---
bedside report received from AR ORTIZ, assume care of pt
--- NOTE | 2018-03-13 21:00 | NUR ---
assessments & interventions completed, see assessments & interventions, fsbs 178 no ss insulin req
[2018-03-14 05:06] VITALS: BP 131/72
[2018-03-14] MEDS: inSUlin ASPART (NovoLOG) 1 UNIT/0.01 ML (CHARGE PER UNIT) SC SCH ×4 (06:00→20:48)
[2018-03-14] MEDS: LEVOTHYROXINE 25 MCG (LEVOTHROID) TAB PO SCH (06:44)
--- NOTE | 2018-03-14 07:05 | Occupational Ther Daily Note ---
OT Current Status-Daily Note Subjective Pt alert, lying in bed. Pt agrees to therapy. No c/o pain. Does not initiate conversations, will answer questions with more yes and no answers. Mental Status/Objective Patient Orientation: Person Therapy Code Descriptions/Definitions Functional [place] Measure: 0=Not Assessed/NA 4=Minimal Assistance 1=Total Assistance 5=Supervision or Setup 2=Maximal Assistance 6=Modified [place] 3=Moderate Assistance 7=Complete [place] Attachments: IV ADL-Treatment Assist to initiate opening some containers, is able to open paper packages by self. Pt is scanning toward left side easily and reaching for items. Verbal cues to look toward right for items. Pt takes increased time for tasks due to slow motor processing. After therapy, pt lying in bed with call light/phone in reach. Safety measures in place. All needs met. Therapy Code Descriptions/Definitions Functional [place] Measure: 0=Not Assessed/NA 4=Minimal Assistance 1=Total Assistance 5=Supervision or Setup 2=Maximal Assistance 6=Modified [place] 3=Moderate Assistance 7=Complete [place] Therapy Quality Codes: 6 Independent with activity with or without an assistive device 5 Patient requires set up or clean up by helper. Patient completes activity by themselves 4 Supervision or touching assist (CGA). [place] provide cues , steadying assist 3 The helper provides less than half the effort to complete the activity 2 The helper provides more than half the effort to complete the activity 1 Dependent. The helper does all the effort to complete an activity 7 Patient refused to complete or attempt activity 9 The patient did not perform the activity before the current illness or injury 88 Not attempted due to Medical conditions or safety concerns Eating (FIM): 5 (Uses regular utensils to eat and some assist to open containers.) Eating (QC): 5 Grooming (FIM): 5 (Supervision standing at sink.) Oral Hygiene (QC): 4 Bathing (FIM): 5 (Supervision and set up using shower bench and grabbars. Pt will stand throughout most of shower.) Bathing Location: L Arm, R Arm, L Upper Leg, R Upper Leg, L Lower Leg ( including foot), R Lower Leg (including foot), Chest, Abdomen, Buttocks, Perineal Area Shower/Bathe Self (QC): 4 Upper Body (FIM): 5 (Set up only.) Upper Body Dressing (QC): 5 Lower Body Dressing (FIM): 4 (Pt able to don/doff lower body clothing. Pt did need assist when sock was stuck on toe and pt unable to problem solve.) Lower Body Dressing (QC): 3 On/Off Footwear (QC): 3 Toileting (FIM): 6 (Using grabbar, pt able to complete by self. Safety concerns.) Toileting Hygiene (QC): 6 Toilet/Commode Transfer (FIM): 6 (Using grabbars, pt able to complete. Safety concerns.) Tub Transfer(FIM): 6 (Using grabbars and shower bench pt is able to complete. Safety concerns.) OT Short Term Goals Short Term Goals Transfers (B,C,W/C) (FIM): 6 1=Demonstrate adherence to instructed precautions during ADL tasks. 2=Patient will verbalize/demonstrate understanding of assistive devices/ modifications for ADL. 3=Patient will improve strength/tolerance for activity to enable patient to perform ADL's. OT Product Ambassador Goals Product Ambassador Goals 1=Demonstrate adherence to instructed precautions during ADL tasks. 2=Patient will verbalize/demonstrate understanding of assistive devices/ modifications for ADL. 3=Patient will improve strength/tolerance for activity to enable patient to perform ADL's. OT Education/Plan Discharge Recommendations Plan/Recommendations: Continue POC Treatment Plan/Plan of Care Patient would benefit from OT for education, treatment and training to promote independence in ADL's, mobility, safety and/or upper extremity function for ADL' s. Plan of Care: ADL Retraining Treatment Duration: Mar 26, 2018 Frequency: At least 5 of 7 days/Wk (IRF) Estimated Hrs Per Day: 1.5 hours per day Rehab Potential: Fair Time/GCodes Start Time: 06:45 Stop Time: 08:00 Total Time Billed (hr/min): 75 Billed Treatment Time 1 visit-ADL 5 (75 min) JOHN HOANG Mar 14, 2018 07:05
--- NOTE | 2018-03-14 07:15 | NUR ---
bedside report given to AR ORTIZ
[2018-03-14] MEDS: CLOPIDOGREL 75 MG (PLAVIX) TABLET PO SCH (08:11)
[2018-03-14] MEDS: lisINopril 5 MG (PRINIVIL) TABLET PO SCH (08:11)
[2018-03-14] MEDS: FAMOTIDINE 20 MG (PEPCID) TABLET PO SCH (08:11)
[2018-03-14] MEDS: ASPIRIN E.C. 81 MG (ECOTRIN) TAB PO SCH (08:11)
[2018-03-14 08:15] VITALS: BP 150/74
--- NOTE | 2018-03-14 08:33 | Speech Therapy Daily Note ---
Speech Daily Progress Note Subjective Date Seen by Provider: Mar 14, 2018 Time Seen by Provider: 00:30 Patient was feeling much better today. Objective Patient completed linguistic task of word attributes at 80% with minimal cues. Assessment Assessment Current Status: Good Progress Treatment Plan Continue Plan of Care Communication Comprehension: 3 Expression: 3 Social Cognition Social Interaction: 4 Problem Solvin Memory: 2 Speech Short Term Goals Short Term Goals Short Term Goals 1) Patient will complete temporal exercises related to herself at 80% or greater. 2) Patient will complete memory tasks with 80% or greater. 3) Patient will complete problem solving tasks related to daily needs at 80% or greater. Speech Control Equipment Electrician Goals Control Equipment Electrician Goals Patient will improve memory, problem solving and orientation skills in order to return home safely with increased independence. Speech-Plan Patient/Family Goals Patient/Family Goals: Patient plans to return home with family post rehab. Treatment Plan Speech Therapy Treatment Plan: Continue Plan of Care Patient is progressing well with skilled ST services. Treatment Duration: Mar 20, 2018 Frequency: 5 times per week Estimated Hrs Per Day: .5 hour per day Rehab Potential: Fair Barriers to Learning: Patient has recently had a CVA Pt/Family Agrees to Plan: Yes Safety Risks/Education Teaching Recipient: Patient Teaching Methods: Discussion Response to Teaching: Verbalize Understanding Education Topics Provided: Safety and communication of her wants/needs. Time Speech Therapy Time In: 08:00 Speech Therapy Time Out: 08:30 Total Billed Time: 30 Billed Treatment Time CHIDI Priest [facility] Mar 14, 2018 08:33
--- NOTE | 2018-03-14 10:32 | PM&R Progress Note ---
Subjective This was a face to face visit with the patient. Date Seen by Provider: Mar 14, 2018 Time Seen by Provider: 10:00 Subjective/Events-last exam Patient was seen in her room when she was in bed just getting ready to start therapy. Patient had no other syncopal events Patient doing well otherwise Per dissipating in therapy Her baseline activity was minimal mostly sitting in a chair at home Family updated and told her room number Blood sugars reviewed Overall tolerating meds and therapies well Reviewed physical therapy and outpatient therapy notes Review of Systems General: Fatigue Neurological: Incoordination, Change in speech, Confusion Objective Physician Exam Last Set of Vital Signs Vital Signs Date Time Temp Pulse Resp B/P (MAP) Pulse Ox O2 Delivery O2 Flow Rate FiO2 03/14/18 09:26 Room Air 03/14/18 08:15 80 150/74 (99) 03/14/18 05:06 97.2 17 97 Capillary Refill : I&O Intake and Output 03/14/18 00:00 Intake Total 350 ml Balance 350 ml Intake Oral 350 ml # Voids 2 # Bowel Movements 1 General: Alert, Cooperative, Other (O x 1-2) Neck: Supple, No Thyromegaly Lungs: Clear to Auscultation, Normal Air Movement Heart: Regular Rate, Normal S1, Normal S2 Neuro: Cranial Nerves 3-12 NL, Reflexes 2+, Other (speech impaired and word finding deficient) Psych/Mental Status: Other (Flat affect) Results Lab Data Laboratory Tests 03/11/18 21:29: Glucometer 227H 03/12/18 05:18: Glucometer 93 03/12/18 05:20: White Blood Count 5.8, Red Blood Count 4.15L, Hemoglobin 12.2, Hematocrit 37, Mean Corpuscular Volume 88, Mean Corpuscular Hemoglobin 29, Mean Corpuscular Hemoglobin Concent 33, Red Cell Distribution Width 14.1, Platelet Count 153, Mean Platelet Volume 11.6H, Neutrophils (%) (Auto) 62, Lymphocytes (%) (Auto) 25 , Monocytes (%) (Auto) 11, Eosinophils (%) (Auto) 1, Basophils (%) (Auto) 1, Neutrophils # (Auto) 3.6, Lymphocytes # (Auto) 1.4, Monocytes # (Auto) 0.6, Eosinophils # (Auto) 0.1, Basophils # (Auto) 0.0, Sodium Level 137, Potassium Level 4.3, Chloride Level 103, Carbon Dioxide Level 22, Anion Gap 12, Blood Urea Nitrogen 21H, Creatinine 1.14, Estimat Glomerular Filtration Rate 46, BUN/ Creatinine Ratio 18, Glucose Level 95, Calcium Level 8.9, Corrected Calcium 9.4 , Total Bilirubin 0.7, Aspartate Amino Transf (AST/SGOT) 27, Alanine Aminotransferase (ALT/SGPT) 13, Alkaline Phosphatase 72, Total Protein 5.7L, Albumin 3.4, Thyroid Stimulating Hormone (TSH) 7.66H 03/12/18 11:23: Glucometer 182H 03/13/18 20:48: Glucometer 178H 03/14/18 04:41: Glucometer 108 Progress Toward Rehab Goals Continue therapy Monitor blood sugars Monitor blood pressure Monitor for any recurrent vasovagal syncope episodes Assessment/Plan Assessment and Plan (1) Cerebrovascular accident (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 Status: Chronic (2) Syncope and collapse Status: Resolved (3) CAD (coronary artery disease) Qualifiers: Qualified Codes: I25.10 - Atherosclerotic heart disease of [place] coronary artery without angina pectoris Status: Chronic (4) Pacemaker Status: Chronic (5) Renal insufficiency Status: Chronic (6) Hyperlipidemia Qualifiers: Qualified Codes: E78.2 - Mixed hyperlipidemia Status: Chronic (7) Noncompliance Status: Chronic (8) Disorientation Status: Acute (9) Aphasia Status: Acute (10) Memory deficit Status: Acute (11) Elevated troponin Status: Resolved Co-Morbidities that are continuing to impact the rehab process: (include details ) ERVIN TRAN DO Mar 14, 2018 10:32
--- NOTE | 2018-03-14 11:22 | Physical Therapy Daily Note ---
PT Daily Note-Current Subjective Pt laying Supine in bed upon arrival. Pt agrees to PT. Pt's affect continues to be flat. Pain Location: No Pain Reported Mental Status Patient Orientation: Person, Place Transfers Therapy Code Descriptions/Definitions Functional [place] Measure: 0=Not Assessed/NA 4=Minimal Assistance 1=Total Assistance 5=Supervision or Setup 2=Maximal Assistance 6=Modified [place] 3=Moderate Assistance 7=Complete [place] Therapy Quality Codes: 6 Independent with activity with or without an assistive device 5 Patient requires set up or clean up by helper. Patient completes activity by themselves 4 Supervision or touching assist (CGA). [place] provide cues , steadying assist 3 The helper provides less than half the effort to complete the activity 2 The helper provides more than half the effort to complete the activity 1 Dependent. The helper does all the effort to complete an activity 7 Patient refused to complete or attempt activity 9 The patient did not perform the activity before the current illness or injury 88 Not attempted due to Medical conditions or safety concerns Scootin Supine to/from Sit: 5 Sit to/from Stand: 5 Sit to Stand (QC): 5 Gait Training Does the Patient Walk?: Yes Distance (FIM): 3=150 ft Distance: 750' Walk 10 feet (QC): 5 Walk 50 ft with 2 Turns(QC): 5 Walk 150 ft (QC): 5 Gait Level of Assist: 5 Gait Persons Needed: 1 Gait Assistive Device: None Pt walks with slow but steady gait, occasionally drifting to right. Wheelchair Training Does the Pt Use a Wheelchair?: No Exercises Seated Therapy Exercises: Ankle pumps, Long arc quads, Hip flexion, Kicking activity Seated Reps: 20 NuStep Minutes: 10 NuStep Workload: 3 Treatments Pt transfers from bed to standing with some VC but no Phy. assistance. Pt ambulates in hallway w/o AD at SBA. Pt uses NuStep for 10m at WL 3 before needing to return to room to use restroom. Pt rests in recliner before completing Seated Ex in recliner. Pt then takes extended ambulation to main floor of hospital before returning at end of tx to room. Pt resting in recliner with all needs met. Pt's BP is monitored throughout tx & Nurse is notified of numbers which are consistent but remain high. Assessment Current Status: Good Progress Pt's BP remains consistent but high during tx. After walk to Gym- BP: 154/100, P:76 After toileting- BP: 147/82, P: 80 After extended walk- BP: 147/85, P: 81 PT Short Term Goals Short Term Goals Time Frame: Mar 19, 2018 Transfers (B,C,W/C) (FIM): 6 Gait (FIM): 5 Gait Distance Comment: 300' Gait Level of Assist: 5 PT Fci Goals Switchboard Troubleshooter Goals PT Switchboard Troubleshooter Goals Time Frame: Apr 02, 2018 Transfers (B,C,W/C) (FIM): 7 Sit to Lying (QC): 6 Lying-Sitting on Side/Bed(QC): 6 Sit to Stand (QC): 6 Rollin Roll Left to Right (QC): 6 Chair/Nnm-rj-Dhtxs Xfer(QC): 6 Car Transfer (QC): 6 Gait (FIM): 7 Distance: 500' Walk 10 feet (QC): 6 Walk 10ft-Uneven Surface(QC): 6 Walk 50ft with 2 Turns (QC): 6 Walk 150 ft (QC): 6 Gait Level of Assist: 7 Gait Assistive Device: None Stairs (FIM): 5 # of Steps: 12 1 Step (curb) (QC): 4 4 Steps (QC): 4 12 Steps (QC): 4 Stairs Level Of Assist: 5 PT Plan Problem List Problem List: Activity Tolerance, Functional Strength, Safety, Balance, Gait Treatment/Plan Treatment Plan: Continue Plan of Care Treatment Plan: Bed Mobility, Education, Functional Activity Sergey, Functional Strength, Group Therapy, Gait, Safety, Therapeutic Exercise, Transfers Treatment Duration: Apr 02, 2018 Frequency: At least 5 of 7 days/Wk (IRF) Estimated Hrs Per Day: 1.5 hours per day Patient and/or Family Agrees t: Yes Safety Risks/Education Patient Education: Gait Training, Transfer Techniques, Correct Positioning, Safety Issues Teaching Recipient: Patient Teaching Methods: Discussion Response to Teaching: Verbalize Understanding Time/GCodes Time In: 1000 Time Out: 1115 Total Billed Treatment Time: 75 Total Billed Treatment 1, GT x2 (30m), EX (15m) & FA x2 (30m) G Codes Necessary: GALILEA Noble [employer] Mar 14, 2018 11:22
--- NOTE | 2018-03-14 11:56 | Cardiology Progress Note ---
Subjective Date Seen by Provider: Mar 14, 2018 Time Seen by Provider: 11:53 Subjective/Events-last exam patient is sitting in a chair, feeling better. Asking to go home. Review of Systems General: No Chills, No Night Sweats, No Fatigue, No Malaise, No Appetite, No Other HEENT: No Head Aches, No Visual Changes, No Eye Pain, No Ear Pain, No Dysphasia , No Sinus Congestion, No Post Nasal Drip, No Sore Throat, No Other Pulmonary: No Dyspnea, No Cough, No Pleuritic Chest Pain, No Other Cardiovascular: No: Chest Pain, Palpitations, Orthopnea, Paroxysmal Noc. Dyspnea, Edema, Lt Headedness, Other Objective-Cardiology Exam Last Set of Vital Signs Vital Signs 03/14/18 03/14/18 03/14/18 05:06 08:15 09:26 Temp 97.2 Pulse 80 Resp 17 B/P (MAP) 150/74 (99) Pulse Ox 97 O2 Delivery Room Air Capillary Refill : I&O Intake and Output 03/14/18 00:00 Intake Total 350 ml Balance 350 ml Intake Oral 350 ml # Voids 2 # Bowel Movements 1 General: Alert, Oriented X3, Cooperative, Other (O x 1-2) Neck: Supple, No Thyromegaly Lungs: Clear to Auscultation, Normal Air Movement Heart: Regular Rate, Normal S1, Normal S2 Abdomen: Normal Bowel Sounds Extremities: No Clubbing, No Cyanosis Neuro: Normal Speech, Cranial Nerves 3-12 NL, Reflexes 2+, Other (speech impaired and word finding deficient) Results Lab Laboratory Tests Test 03/13/18 20:48 03/14/18 04:41 Range/Units Glucometer 178 H 108 70-110 MG/DL A/P-Cardiology Admission Diagnosis CVA Hypertension Hyperlipidemia Syncope Assessment/Plan Syncope, probably hypotensive episode, vasovagal episode, better at this time, blood pressure is mildly elevated, I will increase lisinopril to 10 mg daily and monitor closely Acute CVA with left MCA distribution thrombus, received TPA on March 08, 2018 , noted to have small intracranial bleed on March 10, 2018. Was receiving physical therapy. Coronary artery disease, non-ST elevation myocardial infarction had elevation in troponin level of 1.5, had ST elevation in V2 with QS in the anterior leads, no reciprocal changes. Conservative management in [facility]. Continue to monitor, history of CABG in the past. Congestive heart failure, chronic compensated left ventricular systolic dysfunction, probably ischemic in nature with ejection fraction reported to be between 35 and 40 percent, continue to monitor at this time Hypertension, status post hypotensive episode, planning to increase lisinopril to 10 mg daily, monitor blood pressure closely Hyperlipidemia, restart Lipitor 40 mg daily and monitor History of permanent pacemaker, atrial paced rhythm on EKG. Hypothyroidism, managed by primary care physician Okay for discharge to rehabilitation from cardiology standpoint Clinical Quality Measures DVT/VTE Risk/Contraindication: Risk Factor Score Per Nursin RFS Level Per Nursing on Admit: 4+=Very High JAC MABRY MD Mar 14, 2018 11:55
[2018-03-14] MEDS ORDERED: lisINopril 5 MG (PRINIVIL) TABLET PO NR (12:00)
[2018-03-14 18:24] VITALS: BP 170/95
--- NOTE | 2018-03-14 19:12 | NUR ---
bedside report received from AR ORTIZ, assume care of pt
[2018-03-14] MEDS: ENOXAPARIN 40 MG/0.4 ML (LOVENOX) SYR SC SCH (20:45)
[2018-03-14] MEDS: ATORVASTATIN 40 MG (LIPITOR) TABLET PO SCH (20:46)
[2018-03-14] MEDS: MELATONIN 3 MG TABLET PO PRN (20:46)
[2018-03-14] MEDS: eZETimibe 10 MG (ZETIA) TABLET PO SCH (20:46)
--- NOTE | 2018-03-14 21:00 | NUR ---
assessments & interventions completed, see assessments & interventions, fsbs 161 no ss insulin req, pt up with standby assist to bathroom, bed alarm on
[2018-03-15 05:49] VITALS: BP 133/79
[2018-03-15] MEDS: inSUlin ASPART (NovoLOG) 1 UNIT/0.01 ML (CHARGE PER UNIT) SC SCH ×4 (06:00→20:42)
[2018-03-15] MEDS: LEVOTHYROXINE 25 MCG (LEVOTHROID) TAB PO SCH (06:41)
--- NOTE | 2018-03-15 07:16 | NUR ---
BEDSIDE REPORT GIVEN TO KENDRICK ORTIZ
[2018-03-15] MEDS: lisINopril 10 MG (PRINIVIL) TABLET PO SCH (08:14)
[2018-03-15] MEDS: ASPIRIN E.C. 81 MG (ECOTRIN) TAB PO SCH (08:15)
[2018-03-15] MEDS: FAMOTIDINE 20 MG (PEPCID) TABLET PO SCH (08:15)
[2018-03-15] MEDS: CLOPIDOGREL 75 MG (PLAVIX) TABLET PO SCH (08:15)
--- NOTE | 2018-03-15 10:21 | Cardiology Progress Note ---
Subjective Date Seen by Provider: Mar 15, 2018 Time Seen by Provider: 10:21 Subjective/Events-last exam Patient is sitting in a chair, no new complaint. Confused Review of Systems General: No Chills, No Night Sweats, No Fatigue, No Malaise, No Appetite, No Other HEENT: No Head Aches, No Visual Changes, No Eye Pain, No Ear Pain, No Dysphasia , No Sinus Congestion, No Post Nasal Drip, No Sore Throat, No Other Pulmonary: No Dyspnea, No Cough, No Pleuritic Chest Pain, No Other Cardiovascular: No: Chest Pain, Palpitations, Orthopnea, Paroxysmal Noc. Dyspnea, Edema, Lt Headedness, Other Objective-Cardiology Exam Last Set of Vital Signs Vital Signs 03/15/18 03/15/18 05:49 09:00 Temp 96.9 Pulse 72 Resp 18 B/P (MAP) 133/79 (97) Pulse Ox 98 O2 Delivery Room Air Capillary Refill : I&O Intake and Output 03/15/18 00:00 Intake Total 900 ml Balance 900 ml Intake Oral 900 ml # Voids 8 # Bowel Movements 3 General: Alert, Cooperative, Other (O x 1-2) Neck: Supple, No Thyromegaly Lungs: Clear to Auscultation, Normal Air Movement Heart: Regular Rate, Normal S1, Normal S2 Abdomen: Normal Bowel Sounds Extremities: No Clubbing, No Cyanosis Neuro: Normal Speech, Cranial Nerves 3-12 NL, Reflexes 2+, Other (speech impaired and word finding deficient) Psych/Mental Status: Other (Flat affect) Results Lab Laboratory Tests Test 03/14/18 20:43 03/15/18 05:06 Range/Units Glucometer 161 H 87 70-110 MG/DL A/P-Cardiology Admission Diagnosis CVA Hypertension Hyperlipidemia Syncope Assessment/Plan Syncope, probably hypotensive episode, vasovagal episode, better at this time, blood pressure is mildly elevated, I will increase lisinopril to 10 mg daily and monitor closely Acute CVA with left MCA distribution thrombus, received TPA on March 08, 2018 , noted to have small intracranial bleed on March 10, 2018. Was receiving physical therapy. Coronary artery disease, non-ST elevation myocardial infarction had elevation in troponin level of 1.5, had ST elevation in V2 with QS in the anterior leads, no reciprocal changes. Conservative management in [facility]. Continue to monitor, history of CABG in the past. Congestive heart failure, chronic compensated left ventricular systolic dysfunction, probably ischemic in nature with ejection fraction reported to be between 35 and 40 percent, continue to monitor at this time Hypertension, status post hypotensive episode, planning to increase lisinopril to 10 mg daily, monitor blood pressure closely Hyperlipidemia, restart Lipitor 40 mg daily and monitor History of permanent pacemaker, atrial paced rhythm on EKG. Hypothyroidism, managed by primary care physician Okay for discharge to rehabilitation from cardiology standpoint Clinical Quality Measures DVT/VTE Risk/Contraindication: Risk Factor Score Per Nursin RFS Level Per Nursing on Admit: 4+=Very High JAC MABRY MD Mar 15, 2018 10:21 am
--- NOTE | 2018-03-15 12:57 | PM&R Progress Note ---
Subjective HPI/CC On Admission Date Seen by Provider: Mar 15, 2018 Time Seen by Provider: 12:00 Subjective/Events-last exam Patient doing well Worried that her son is missing but he's been having conversations with others but the nurses still have been and able to contact him Reassured the patient Blood sugars are reviewed Blood pressure doing well Overall feels like she is doing better Desperately wants to go home Review of Systems General: Fatigue Neurological: Weakness, Incoordination, Change in speech, Confusion Objective Exam Vital Signs Vital Signs Date Time Temp Pulse Resp B/P (MAP) Pulse Ox O2 Delivery O2 Flow Rate FiO2 03/15/18 09:00 Room Air 03/15/18 05:49 96.9 72 18 133/79 (97) 98 Capillary Refill : General Appearance: No Apparent Distress, WD/WN, Chronically ill Respiratory: Chest Non Tender, Lungs Clear, Normal Breath Sounds, No Accessory Muscle Use, No Respiratory Distress Cardiovascular: Regular Rate, Rhythm, No Edema, No Gallop, No JVD, No Murmur, Normal Peripheral Pulses 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, Normal Mood/Affect, Disoriented, Motor Weakness (Right upper extremity improving) Skin: Normal Color, Warm/Dry Results/Procedures Lab Patient resulted labs reviewed. Assessment/Plan Assessment and Plan Assess & Plan/Chief Complaint Assessment: s/p acute episode of syncope due to vasovagal and hypovolemia requiring transfer to ICU for observation and critical care and Cardiology evaluation Subacute CVA with mild hemorrhagic spread of the left MCA distribution status post TPA outside hospital prior to transfer to with a facial and right upper extremity weakness Assessment: Episode of hypovolemic vasovagal syncopal episode requiring rapid response team and critical care consultation and transferred to the ICU now completed resolved CVA subacute s/p tPA OSH before transfer to [facility] 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 ejection fraction 35 percent to Diabetes mellitus out of control Chronic renal insufficiency Noncompliance with medications and medical management in the past Hypothyroidism Poor memory recall Plan: Cardiology consultation is appreciated Monitor closely Therapy services to continue Diagnosis/Problems Diagnosis/Problems (1) Cerebrovascular accident (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 Status: Chronic (2) Syncope and collapse Status: Resolved Resolution Date/Time: 03/13/18 @ 12:38 (3) CAD (coronary artery disease) Status: Chronic Qualifiers: Coronary Disease-Associated Artery/Lesion type: [place] artery [place] vs. transplanted heart: [place] heart Associated angina: without angina Qualified Codes: I25.10 - Atherosclerotic heart disease of [place] coronary artery without angina pectoris (4) Pacemaker Status: Chronic (5) Renal insufficiency Status: Chronic (6) Hyperlipidemia Status: Chronic Qualifiers: Hyperlipidemia type: mixed hyperlipidemia Qualified Codes: E78.2 - Mixed hyperlipidemia (7) Noncompliance Status: Chronic (8) Disorientation Status: Acute (9) Aphasia Status: Acute (10) Memory deficit Status: Acute (11) Elevated troponin Status: Resolved Resolution Date/Time: 03/13/18 @ 12:38 Clinical Quality Measures DVT/VTE Risk/Contraindication: Risk Factor Score Per Nursin RFS Level Per Nursing on Admit: 4+=Very High ERVIN TRAN DO Mar 15, 2018 12:57
[2018-03-15 18:00] VITALS: BP 164/90
--- NOTE | 2018-03-15 18:55 | NUR ---
bedside report received from KENDRICK ORTIZ, assume care of pt
[2018-03-15] MEDS: ATORVASTATIN 40 MG (LIPITOR) TABLET PO SCH (20:32)
[2018-03-15] MEDS: ENOXAPARIN 40 MG/0.4 ML (LOVENOX) SYR SC SCH (20:32)
[2018-03-15] MEDS: MELATONIN 3 MG TABLET PO PRN (20:32)
[2018-03-15] MEDS: eZETimibe 10 MG (ZETIA) TABLET PO SCH (20:32)
--- NOTE | 2018-03-15 21:00 | NUR ---
assessments & interventions completed, see assessments & interventions, fsbs 244 NovoLog 3 units given, pt up to chair with chair alarm on, watching tv
[2018-03-16 06:00] VITALS: BP 135/80
[2018-03-16] MEDS: inSUlin ASPART (NovoLOG) 1 UNIT/0.01 ML (CHARGE PER UNIT) SC SCH ×4 (06:00→21:00)
[2018-03-16] MEDS: LEVOTHYROXINE 25 MCG (LEVOTHROID) TAB PO SCH (06:34)
--- NOTE | 2018-03-16 07:07 | NUR ---
bedside report given to KENDRICK ORTIZ
[2018-03-16] MEDS: CLOPIDOGREL 75 MG (PLAVIX) TABLET PO SCH (07:51)
[2018-03-16] MEDS: lisINopril 10 MG (PRINIVIL) TABLET PO SCH (07:51)
[2018-03-16] MEDS: FAMOTIDINE 20 MG (PEPCID) TABLET PO SCH (07:51)
[2018-03-16] MEDS: ASPIRIN E.C. 81 MG (ECOTRIN) TAB PO SCH (07:52)
--- NOTE | 2018-03-16 08:21 | PM&R Progress Note ---
Subjective This was a face to face visit with the patient. Date Seen by Provider: Mar 17, 2018 Time Seen by Provider: 08:00 Subjective/Events-last exam Patient was seen in her room with patient in her bed about the begin therapy Blood sugars improving Participating in therapies Cognition and communication skills being aggressively treated with therapies Constantly asked to go home when I see her every day Lethargy and what appears to be some moderate depression persist No aggression or agitation noted Date Identified: Mar 16, 2018 Medication Intervention: Elevated BP but at risk for vasovagal and hypotension and syncope so will allow permissive HTN. Review of Systems General: Fatigue Neurological: Weakness, Incoordination, Change in speech, Confusion Objective Physician Exam Last Set of Vital Signs Vital Signs Date Time Temp Pulse Resp B/P (MAP) Pulse Ox O2 Delivery O2 Flow Rate FiO2 03/16/18 06:00 96.7 64 18 135/80 (98) 96 Room Air Capillary Refill : I&O Intake and Output 03/16/18 00:00 Intake Total 970 ml Balance 970 ml Intake Oral 970 ml # Voids 7 # Bowel Movements 1 General: Alert, Cooperative, Other (O x 1-2) Neck: Supple, No Thyromegaly Lungs: Clear to Auscultation, Normal Air Movement Heart: Regular Rate, Normal S1, Normal S2 Abdomen: Normal Bowel Sounds Extremities: No Clubbing, No Cyanosis Neuro: Normal Speech, Cranial Nerves 3-12 NL, Reflexes 2+, Other (speech impaired and word finding deficient) Psych/Mental Status: Other (Flat affect) Results Lab Data Laboratory Tests 03/13/18 20:48: Glucometer 178H 03/14/18 04:41: Glucometer 108 03/14/18 20:43: Glucometer 161H 03/15/18 05:06: Glucometer 87 03/15/18 16:06: Glucometer 142H 03/15/18 20:38: Glucometer 244H 03/16/18 04:36: Glucometer 96 Current Funtional Status Participating in all therapies as required Work on cognition and communication Strengthen right side especially upper extremity Fall risk Ambulate with walker Assessment/Plan Assessment and Plan (1) Cerebrovascular accident (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 Status: Chronic (2) Syncope and collapse Status: Resolved (3) CAD (coronary artery disease) Qualifiers: Qualified Codes: I25.10 - Atherosclerotic heart disease of [place] coronary artery without angina pectoris Status: Chronic (4) Pacemaker Status: Chronic (5) Renal insufficiency Status: Chronic (6) Hyperlipidemia Qualifiers: Qualified Codes: E78.2 - Mixed hyperlipidemia Status: Chronic (7) Noncompliance Status: Chronic (8) Disorientation Status: Acute (9) Aphasia Status: Acute (10) Memory deficit Status: Acute (11) Elevated troponin Status: Resolved Co-Morbidities that are continuing to impact the rehab process: (include details ) ERVIN TRAN DO Mar 16, 2018 08:21
--- NOTE | 2018-03-16 08:55 | Cardiology Progress Note ---
Subjective Date Seen by Provider: Mar 16, 2018 Time Seen by Provider: 08:53 Subjective/Events-last exam Patient is sitting up in chair, denies any chest pain or dizziness. No complaints at this time. Objective-Cardiology Exam Last Set of Vital Signs Vital Signs 03/16/18 06:00 Temp 96.7 Pulse 64 Resp 18 B/P (MAP) 135/80 (98) Pulse Ox 96 O2 Delivery Room Air Capillary Refill : I&O Intake and Output 03/16/18 00:00 Intake Total 970 ml Balance 970 ml Intake Oral 970 ml # Voids 7 # Bowel Movements 1 General: Alert, Cooperative, Other (O x 1-2) Neck: Supple, No Thyromegaly Lungs: Clear to Auscultation, Normal Air Movement Heart: Regular Rate, Normal S1, Normal S2 Abdomen: Normal Bowel Sounds Extremities: No Clubbing, No Cyanosis Neuro: Normal Speech, Cranial Nerves 3-12 NL, Reflexes 2+, Other (speech impaired and word finding deficient) Psych/Mental Status: Other (Flat affect) A/P-Cardiology Admission Diagnosis CVA Hypertension Hyperlipidemia Syncope Assessment/Plan Syncope, probably hypotensive episode, vasovagal episode, better at this time, blood pressure is mildly elevated, mainly in the evenings. I will change Toprol XL to be taken in the evening. Continue to monitor blood pressure. 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 Was receiving physical therapy. Coronary artery disease, non-ST elevation myocardial infarction had elevation in troponin level of 1.5, had ST elevation in V2 with QS in the anterior leads, no reciprocal changes. Conservative management in [facility]. Continue to monitor, history of CABG in the past. Congestive heart failure, chronic compensated left ventricular systolic dysfunction, probably ischemic in nature with ejection fraction reported to be between 35 and 40 percent, continue to monitor at this time Hypertension, status post hypotensive episode, continue to monitor. Hyperlipidemia, maintained on Lipitor, continue to monitor. History of permanent pacemaker, atrial paced rhythm on EKG. Hypothyroidism, managed by primary care physician Okay for discharge to rehabilitation from cardiology standpoint Clinical Quality Measures DVT/VTE Risk/Contraindication: Risk Factor Score Per Nursin RFS Level Per Nursing on Admit: 4+=Very High FARHAT LE Mar 16, 2018 08:54
--- NOTE | 2018-03-16 09:59 | Occupational Ther Daily Note ---
OT Current Status-Daily Note Subjective Pt alert, sitting in recliner. Pt agrees to therapy. Initially talking more then decreased as therapy progressed. No c/o pain. Mental Status/Objective Patient Orientation: Person, Place, Time, Situation Therapy Code Descriptions/Definitions Functional [place] Measure: 0=Not Assessed/NA 4=Minimal Assistance 1=Total Assistance 5=Supervision or Setup 2=Maximal Assistance 6=Modified [place] 3=Moderate Assistance 7=Complete [place] Attachments: IV ADL-Treatment Therapy Code Descriptions/Definitions Functional [place] Measure: 0=Not Assessed/NA 4=Minimal Assistance 1=Total Assistance 5=Supervision or Setup 2=Maximal Assistance 6=Modified [place] 3=Moderate Assistance 7=Complete [place] Therapy Quality Codes: 6 Independent with activity with or without an assistive device 5 Patient requires set up or clean up by helper. Patient completes activity by themselves 4 Supervision or touching assist (CGA). [place] provide cues , steadying assist 3 The helper provides less than half the effort to complete the activity 2 The helper provides more than half the effort to complete the activity 1 Dependent. The helper does all the effort to complete an activity 7 Patient refused to complete or attempt activity 9 The patient did not perform the activity before the current illness or injury 88 Not attempted due to Medical conditions or safety concerns Eating (FIM): 6 (Pt able to open containers/packages by self and use regular utensils.) Eating (QC): 6 Grooming (FIM): 6 (Standing at sink pt able to complete grooming.) Oral Hygiene (QC): 6 Bathing (FIM): 5 (After set up of water and demonstrating where soap was in bottle pt able to complete shower. Pt standing in shower, bending over to wash and dry feet without use of grabbar. No LOB noted.) Bathing Location: L Arm, R Arm, L Upper Leg, R Upper Leg, L Lower Leg ( including foot), R Lower Leg (including foot), Chest, Abdomen, Buttocks, Perineal Area Shower/Bathe Self (QC): 4 Upper Body (FIM): 5 (Pt demonstrates ability to gather clothing though requires verbal cues to initiate task. Pt is able to carry items to designated area for donning/doffing.) Upper Body Dressing (QC): 5 Lower Body Dressing (FIM): 5 (Pt demonstrates ability to gather clothing though requires verbal cues to initiate task. Pt is able to carry items to designated area for donning/doffing. Supervision due to pt standing to don/ doff underwear. With encouragement pt sits to don for safety.) Lower Body Dressing (QC): 4 On/Off Footwear (QC): 6 Toileting (FIM): 7 (Pt able to complete toileting by self.) Toileting Hygiene (QC): 6 Toilet/Commode Transfer (FIM): 6 (Safety concerns. Pt transfers by self without AE.) Toilet Transfer (QC): 6 Shower Transfer(FIM): 6 (Safety concerns. Pt transfers without AE.) Pt then ambulated to laundry transporting clothing. Educated pt on unfamiliar washing machine and dryer. Pt required was able to answer size, water temp and length of time for washing and drying clothing. Pt took clothing out of dryer and transported back to room then folded and hung up clothing in closet. Pt stated that she doesn't need the closet because she is going home soon. Other Treatment Pt ambulated to [facility] and poured self coffee and put creamer in with supervision. Transported coffee to table and sat down. Pt completed fine motor , problem solving and fine motor tasks. Pt took increased time to problem solve but was able to complete. Pt continued task after therapy was complete. Nrsg notified. All needs met. OT Short Term Goals Short Term Goals Transfers (B,C,W/C) (FIM): 6 1=Demonstrate adherence to instructed precautions during ADL tasks. 2=Patient will verbalize/demonstrate understanding of assistive devices/ modifications for ADL. 3=Patient will improve strength/tolerance for activity to enable patient to perform ADL's. OT Longterm Goals Longterm Goals 1=Demonstrate adherence to instructed precautions during ADL tasks. 2=Patient will verbalize/demonstrate understanding of assistive devices/ modifications for ADL. 3=Patient will improve strength/tolerance for activity to enable patient to perform ADL's. OT Education/Plan Discharge Recommendations Plan/Recommendations: Continue POC Treatment Plan/Plan of Care Patient would benefit from OT for education, treatment and training to promote independence in ADL's, mobility, safety and/or upper extremity function for ADL' s. Plan of Care: ADL Retraining Treatment Duration: Mar 26, 2018 Frequency: At least 5 of 7 days/Wk (IRF) Estimated Hrs Per Day: 1.5 hours per day Rehab Potential: Fair Time/GCodes Start Time: 08:00 Stop Time: 09:30 Total Time Billed (hr/min): 90 Billed Treatment Time 1 visit-ADL 3 (52 min) FA 3 (38 min) JOHN HOANG Mar 16, 2018 09:59
--- NOTE | 2018-03-16 09:59 | Cardiology Progress Note ---
Subjective Date Seen by Provider: Mar 16, 2018 Time Seen by Provider: 09:58 Subjective/Events-last exam patient is sitting in a chair, comfortable, no new complaint Review of Systems General: No Chills, No Night Sweats, No Fatigue, No Malaise, No Appetite, No Other HEENT: No Head Aches, No Visual Changes, No Eye Pain, No Ear Pain, No Dysphasia , No Sinus Congestion, No Post Nasal Drip, No Sore Throat, No Other Pulmonary: No Dyspnea, No Cough, No Pleuritic Chest Pain, No Other Cardiovascular: No: Chest Pain, Palpitations, Orthopnea, Paroxysmal Noc. Dyspnea, Edema, Lt Headedness, Other Objective-Cardiology Exam Last Set of Vital Signs Vital Signs 03/16/18 06:00 Temp 96.7 Pulse 64 Resp 18 B/P (MAP) 135/80 (98) Pulse Ox 96 O2 Delivery Room Air Capillary Refill : I&O Intake and Output 03/16/18 00:00 Intake Total 970 ml Balance 970 ml Intake Oral 970 ml # Voids 7 # Bowel Movements 1 General: Alert, Cooperative, Other (O x 1-2) HEENT: Atraumatic, PERRLA Neck: Supple, No Thyromegaly Lungs: Clear to Auscultation, Normal Air Movement Heart: Regular Rate, Normal S1, Normal S2 Abdomen: Normal Bowel Sounds Extremities: No Clubbing, No Cyanosis Skin: No Rashes Neuro: Normal Speech, Cranial Nerves 3-12 NL, Reflexes 2+, Other (speech impaired and word finding deficient) Psych/Mental Status: Other (Flat affect) Results Lab Laboratory Tests Test 03/15/18 16:06 03/15/18 20:38 03/16/18 04:36 Range/Units Glucometer 142 H 244 H 96 70-110 MG/DL A/P-Cardiology Admission Diagnosis CVA Hypertension Hyperlipidemia Syncope Assessment/Plan Syncope, probably hypotensive episode, vasovagal episode, better at this time, blood pressure is mildly elevated, mainly in the evenings. I will change Toprol XL to be taken in the evening. Continue to monitor blood pressure. 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 Was receiving physical therapy. Coronary artery disease, non-ST elevation myocardial infarction had elevation in troponin level of 1.5, had ST elevation in V2 with QS in the anterior leads, no reciprocal changes. Conservative management in [facility]. Continue to monitor, history of CABG in the past. Congestive heart failure, chronic compensated left ventricular systolic dysfunction, probably ischemic in nature with ejection fraction reported to be between 35 and 40 percent, continue to monitor at this time Hypertension, status post hypotensive episode, continue to monitor. Hyperlipidemia, maintained on Lipitor, continue to monitor. History of permanent pacemaker, atrial paced rhythm on EKG. Hypothyroidism, managed by primary care physician Okay for discharge to rehabilitation from cardiology standpoint Clinical Quality Measures DVT/VTE Risk/Contraindication: Risk Factor Score Per Nursin RFS Level Per Nursing on Admit: 4+=Very High JAC MABRY MD Mar 16, 2018 09:59
--- NOTE | 2018-03-16 10:45 | NUR ---
Pastoral Care Visit.
--- NOTE | 2018-03-16 12:11 | Physical Therapy Daily Note ---
PT Daily Note-Current Subjective Pt. agreed to Rx. Minimally converses. No pain or discomfort Pain Numeric Pain Scale: 0-No Pain Mental Status Patient Orientation: Person, Place, Time, Situation Transfers Therapy Code Descriptions/Definitions Functional [place] Measure: 0=Not Assessed/NA 4=Minimal Assistance 1=Total Assistance 5=Supervision or Setup 2=Maximal Assistance 6=Modified [place] 3=Moderate Assistance 7=Complete [place] Therapy Quality Codes: 6 Independent with activity with or without an assistive device 5 Patient requires set up or clean up by helper. Patient completes activity by themselves 4 Supervision or touching assist (CGA). [place] provide cues , steadying assist 3 The helper provides less than half the effort to complete the activity 2 The helper provides more than half the effort to complete the activity 1 Dependent. The helper does all the effort to complete an activity 7 Patient refused to complete or attempt activity 9 The patient did not perform the activity before the current illness or injury 88 Not attempted due to Medical conditions or safety concerns Transfers (B, C, W/C) (FIM): 6 Scootin Rollin Supine to/from Sit: 6 Sit to/from Stand: 6 Bed to/from Chair: 6 car TRF SBA Gait Training Does the Patient Walk?: Yes Gait (FIM): 6 Distance (FIM): 3=150 ft (175x2) Gait Level of Assist: 6 Gait Persons Needed: 0 Gait Assistive Device: None needs guided secondary to visual issue Stair Training Stair Training: Handrails/: 1 handrail Stairs (FIM): 5 #of Steps: 12 Stairs: Pattern: Reciprocal Level of Assist: 5 household assist Exercises Supine Ex: Bridging, Ankle pumps, Quad Set, Rolling, Glut sets, Heel Slides, Short Arc Quads, Scooting, Straight leg raise, Hip abd/add Supine Reps: 15 Seated Therapy Exercises: Ankle pumps, Sit to stand, Long arc quads, Hip flexion, Hip abd/add Seated Reps: 15 Standing: Hip Abduction, Hamstring curls, Heel/toe raises, Marching, Mini squats, Side steps Standing Reps: 15 NuStep Minutes: 12 NuStep Workload: 3 Assessment Current Status: Good Progress PT Short Term Goals Short Term Goals Time Frame: Mar 19, 2018 Transfers (B,C,W/C) (FIM): 6 Gait (FIM): 5 Gait Distance Comment: 300' Gait Level of Assist: 5 PT Group Home Goals Group Home Goals PT Group Home Goals Time Frame: Apr 02, 2018 Transfers (B,C,W/C) (FIM): 7 Sit to Lying (QC): 6 Lying-Sitting on Side/Bed(QC): 6 Sit to Stand (QC): 6 Rollin Roll Left to Right (QC): 6 Chair/Det-ob-Gjmmu Xfer(QC): 6 Car Transfer (QC): 6 Gait (FIM): 7 Distance: 500' Walk 10 feet (QC): 6 Walk 10ft-Uneven Surface(QC): 6 Walk 50ft with 2 Turns (QC): 6 Walk 150 ft (QC): 6 Gait Level of Assist: 7 Gait Assistive Device: None Stairs (FIM): 5 # of Steps: 12 1 Step (curb) (QC): 4 4 Steps (QC): 4 12 Steps (QC): 4 Stairs Level Of Assist: 5 PT Plan Treatment/Plan Treatment Plan: Continue Plan of Care Treatment Plan: Bed Mobility, Education, Functional Activity Sergey, Functional Strength, Group Therapy, Gait, Safety, Therapeutic Exercise, Transfers Treatment Duration: Apr 02, 2018 Frequency: At least 5 of 7 days/Wk (IRF) Estimated Hrs Per Day: 1.5 hours per day Patient and/or Family Agrees t: Yes Safety Risks/Education Patient Education: Gait Training, Transfer Techniques, Steps, Correct Positioning, Disease Process, Safety Issues Teaching Recipient: Patient Teaching Methods: Demonstration, Discussion Response to Teaching: Verbalize Understanding, Return Demonstration, Reinforcement Needed Time/GCodes Time In: 1100 Time Out: 1215 Total Billed Treatment Time: 75 Total Billed Treatment 1,EX30m,FA25m,GT20m G Codes Necessary: SHABANA Sousa CHIEF TECHNICAL OFFICER Mar 16, 2018 12:11
--- NOTE | 2018-03-16 13:17 | Speech Therapy Daily Note ---
Speech Daily Progress Note Subjective Date Seen by Provider: Mar 16, 2018 Time Seen by Provider: 00:30 Patient was working on a jigsaw puzzle in the [facility] area. Patient was alert and oriented. Objective Patient completed memory tasks while working on the jigsaw puzzle at 90% with minimal cues. Assessment Assessment Current Status: Good Progress Treatment Plan Continue Plan of Care Communication Comprehension: 3 Expression: 3 Social Cognition Social Interaction: 4 Problem Solvin Memory: 2 Speech Short Term Goals Short Term Goals Short Term Goals 1) Patient will complete temporal exercises related to herself at 80% or greater. 2) Patient will complete memory tasks with 80% or greater. 3) Patient will complete problem solving tasks related to daily needs at 80% or greater. Speech Skilled Nursing Goals Stock Order Lister Goals Patient will improve memory, problem solving and orientation skills in order to return home safely with increased independence. Speech-Plan Patient/Family Goals Patient/Family Goals: Patient plans to return home with family post rehab. Treatment Plan Speech Therapy Treatment Plan: Continue Plan of Care Patient is making good progress as a result of skilled ST. Treatment Duration: Mar 20, 2018 Frequency: 5 times per week Estimated Hrs Per Day: .5 hour per day Rehab Potential: Good Barriers to Learning: Patient has had some memory deficits post CVA. Pt/Family Agrees to Plan: Yes Safety Risks/Education Teaching Recipient: Patient Teaching Methods: Discussion Response to Teaching: Verbalize Understanding Education Topics Provided: Safety and communication of wants/needs. Time Speech Therapy Time In: 10:30 Speech Therapy Time Out: 11:00 Total Billed Time: 30 Billed Treatment Time [address] Mar 16, 2018 13:17
[2018-03-16 17:33] VITALS: BP 151/81
[2018-03-16] MEDS: eZETimibe 10 MG (ZETIA) TABLET PO SCH (20:57)
[2018-03-16] MEDS: ATORVASTATIN 40 MG (LIPITOR) TABLET PO SCH (20:57)
[2018-03-16] MEDS: ENOXAPARIN 40 MG/0.4 ML (LOVENOX) SYR SC SCH (20:58)
[2018-03-17] MEDS: inSUlin ASPART (NovoLOG) 1 UNIT/0.01 ML (CHARGE PER UNIT) SC SCH ×4 (05:45→20:45)
[2018-03-17 05:56] VITALS: BP 154/81
[2018-03-17] MEDS: LEVOTHYROXINE 25 MCG (LEVOTHROID) TAB PO SCH (06:59)
--- NOTE | 2018-03-17 07:30 | Occupational Ther Daily Note ---
OT Current Status-Daily Note Subjective Pt sleeping in bed, woke easily to name. Pt agrees to therapy. No c/o pain at this time. Pt is talking more. States that she will go home soon. Mental Status/Objective Patient Orientation: Person, Place Therapy Code Descriptions/Definitions Functional Ellis Measure: 0=Not Assessed/NA 4=Minimal Assistance 1=Total Assistance 5=Supervision or Setup 2=Maximal Assistance 6=Modified Ellis 3=Moderate Assistance 7=Complete Ellis ADL-Treatment Declines shower or sponge bath at this time. Does agree to change clothing. Pt demonstrates ability to do rote routine tasks (bathing, dressing, opening packages/containers). When presented with daily tasks in different environment pt has difficulty sequencing task and will stand, look at item. ALMANZAR will ask pt if help is needed and pt will make an affirmative noise and chuckle. When task is completed, pt is able to continue on with routine. Pt is scanning toward both side to look for items without cues. Therapy Code Descriptions/Definitions Functional Ellis Measure: 0=Not Assessed/NA 4=Minimal Assistance 1=Total Assistance 5=Supervision or Setup 2=Maximal Assistance 6=Modified Ellis 3=Moderate Assistance 7=Complete Ellis Therapy Quality Codes: 6 Independent with activity with or without an assistive device 5 Patient requires set up or clean up by helper. Patient completes activity by themselves 4 Supervision or touching assist (CGA). Ramer provide cues , steadying assist 3 The helper provides less than half the effort to complete the activity 2 The helper provides more than half the effort to complete the activity 1 Dependent. The helper does all the effort to complete an activity 7 Patient refused to complete or attempt activity 9 The patient did not perform the activity before the current illness or injury 88 Not attempted due to Medical conditions or safety concerns Eating (FIM): 5 (Is able to open most packages/containers. Will sit and look at item that pt cannot open, will not ask for assistance. Uses regular utensils to eat.) Grooming (FIM): 6 (Standing at sink, pt able to complete.) Oral Hygiene (QC): 6 Upper Body (FIM): 5 (Set up only.) Upper Body Dressing (QC): 5 Lower Body Dressing (FIM): 5 (Set up, supervision for safety. Pt stands to don /doff pants. Is able to complete with hand hold on surfaces.) Lower Body Dressing (QC): 4 On/Off Footwear (QC): 6 Toileting (FIM): 7 (Pt able to complete without AE.) Toileting Hygiene (QC): 6 Toilet/Commode Transfer (FIM): 7 (Completes without AE.) Toilet Transfer (QC): 6 Other Treatment Pt able to make 1/2 of bed, no LOB. Pt ambulated to laundry, required verbal cues to initiate task and follow through. Pt did not remember doing laundry day before, 03/16/18. Pt then was able to get coffee and open packages for coffee and transport to table. After therapy, pt sitting in chair eating breakfast. Left in care of PT. All needs met. OT Short Term Goals Short Term Goals Transfers (B,C,W/C) (FIM): 6 1=Demonstrate adherence to instructed precautions during ADL tasks. 2=Patient will verbalize/demonstrate understanding of assistive devices/ modifications for ADL. 3=Patient will improve strength/tolerance for activity to enable patient to perform ADL's. OT Commercial Loan Closer Goals Commercial Loan Closer Goals 1=Demonstrate adherence to instructed precautions during ADL tasks. 2=Patient will verbalize/demonstrate understanding of assistive devices/ modifications for ADL. 3=Patient will improve strength/tolerance for activity to enable patient to perform ADL's. OT Education/Plan Discharge Recommendations Plan/Recommendations: Continue POC Treatment Plan/Plan of Care Patient would benefit from OT for education, treatment and training to promote independence in ADL's, mobility, safety and/or upper extremity function for ADL' s. Plan of Care: ADL Retraining Treatment Duration: Mar 26, 2018 Frequency: At least 5 of 7 days/Wk (IRF) Estimated Hrs Per Day: 1.5 hours per day Rehab Potential: Good Time/GCodes Start Time: 07:00 Stop Time: 08:15 Total Time Billed (hr/min): 75 Billed Treatment Time 1 visit-ADL 3 (45 min) FA 2 (30 min) JOHN HOANG Mar 17, 2018 07:30
--- NOTE | 2018-03-17 07:58 | Individualized Plan of Care ---
Individualized Plan of Care Rehab Nursing IPOC Order Admission Date Mar 11, 2018 at 17:00 Current Orders Orders Admission Arrival Bed Request (03/11/18 17:27) Heart Healthy (03/11/18 Dinner) Automatic Tray (03/11/18 18:39) Aspirin Tablet (Aspirin Tablet) (03/12/18 09:00) Atorvastatin Tablet (Lipitor) (03/11/18 21:00) Carvedilol Tablet (Coreg Tablet) (03/11/18 21:00) Citalopram Tablet (Celexa Tablet) (03/12/18 09:00) Clopidogrel Tablet (Plavix Tablet) (03/12/18 09:00) Ezetimibe Tablet (Zetia Tablet) (03/11/18 21:00) Famotidine Tablet (Pepcid Tablet) (03/11/18 21:00) Lisinopril Tablet (Zestril Tablet) (03/12/18 09:00) Aspirin Enteric Coated Tablet (Ecotrin T (03/12/18 09:00) Nursing Communication (Order) (03/11/18 20:26) Enoxaparin Injection (Lovenox Injection) (03/11/18 20:30) Cbc With Automated Diff (03/12/18 06:00) Comprehensive Metabolic Panel (03/12/18 06:00) Thyroid Stimulating Hormone (03/12/18 05:00) Admission Order(Inpt,Obs,Sdc) (03/11/18 20:26) Code/Resuscitation (03/11/18 20:26) Acetaminophen Tablet (Tylenol Tablet) (03/11/18 20:30) Calcium Carbonate Chew Tablet (Antacid C (03/11/18 20:30) Diphenhydramine Tablet (Benadryl Tablet) (03/11/18 20:30) Docusate Sodium Capsule (Colace Capsule) (03/11/18 20:30) Loperamide Capsule (Imodium Capsule) (03/11/18 20:30) Melatonin Tablet (Melatonin Tablet) (03/11/18 20:30) Polyethylene Glycol Powder Pkt (Miralax (03/11/18 20:30) Ondansetron Oral Dissolve Tab (Zofran (03/11/18 20:30) Rx-Tramadol Hcl (Rx-Ultram) (03/11/18 20:30) Alprazolam Tablet (Xanax Tablet) (03/11/18 20:30) Accucheck Achs ACHS (03/11/18 20:26) Insulin Aspart (Novolog) (Novolog (Charg (03/11/18 21:00) Consult Physician (03/11/18 20:26) Enoxaparin Injection (Lovenox Injection) (03/11/18 20:53) Sequential Compression Device ,20 (03/11/18 22:00) Dvt/Vte Risk - Notifiy Physici 08 (03/12/18 08:00) Speech Therapy Orders (03/12/18 08:00) Physical Therapy Oder (03/12/18 07:56) Occupational Therapy Order (03/12/18 07:56) Patient Visit (03/12/18 ) Pt Eval Moderate Complexity (03/12/18 ) Gait Training, Ea 15 Min (03/12/18 ) Ex Neuromuscular, Ea 15 Min (03/12/18 ) Famotidine Tablet (Pepcid Tablet) (03/13/18 09:00) Tramadol Tablet (Ultram Tablet) (03/12/18 11:00) Ns Iv 1000 Ml (Sodium Chloride 0.9%) (03/12/18 11:21) Patient Visit (03/12/18 ) Speech Sound Lang Comp (03/12/18 ) Metoprolol Succinate (Xl) Tab (Toprol Xl (03/14/18 09:00) Patient Visit (03/13/18 ) Treat. Speech/Lang/Voice (03/13/18 ) Tramadol Tablet (Ultram Tablet) (03/13/18 11:00) Heart Healthy (03/13/18 Lunch) Automatic Tray (03/13/18 12:03) Patient Visit (03/13/18 ) Exercise Therap, Ea 15 Min (03/13/18 ) Gait Training, Ea 15 Min (03/13/18 ) Functional Activities, Ea 15 (03/13/18 ) Levothyroxine Tablet (Synthroid Tablet) (03/14/18 06:30) Patient Visit (03/14/18 ) Treat. Speech/Lang/Voice (03/14/18 ) Patient Visit (03/14/18 ) Gait Training, Ea 15 Min (03/14/18 ) Exercise Therap, Ea 15 Min (03/14/18 ) Functional Activities, Ea 15 (03/14/18 ) Lisinopril Tablet (Zestril Tablet) (03/14/18 12:00) Lisinopril Tablet (Zestril Tablet) (03/15/18 09:00) Metoprolol Succinate (Xl) Tab (Toprol Xl (03/16/18 18:00) Patient Visit (03/16/18 ) Treat. Speech/Lang/Voice (03/16/18 ) Patient Visit (03/16/18 ) Exercise Therap, Ea 15 Min (03/16/18 ) Gait Training, Ea 15 Min (03/16/18 ) Functional Activities, Ea 15 (03/16/18 ) Metoprolol Succinate (Xl) Tab (Toprol Xl (03/16/18 18:00) Patient Visit (03/17/18 ) Treat. Speech/Lang/Voice (03/17/18 ) Patient Visit (03/17/18 ) Gait Training, Ea 15 Min (03/17/18 ) Exercise Therap, Ea 15 Min (03/17/18 ) Functional Activities, Ea 15 (03/17/18 ) Rehab Nursing Orders: Ongoing Assess. of Cognitive Status, Ongoing Assess. of Function Status, Disease Management & Educaiton, DVT Prophylaxis, Fall Prevention, Fluid/Electrolyte/Nutrition Mgmt, Medication Management & Education , Management of Risks & Complications, Nutrition Management, Patient/Family Support, Safety Management Intensity of Therapy to be met Patient to be seen: Min.3h per day/5 of 7d PT IPOC Problem List: Activity Tolerance, Functional Strength, Safety, Balance, Gait Treatment Plan: Continue Plan of Care Bed Mobility, Education, Functional Activity Sergey, Functional Strength, Group Therapy, Gait, Safety, Therapeutic Exercise, Transfers Treatment Duration: Apr 02, 2018 Frequency: At least 5 of 7 days/Wk (IRF) Estimated Hrs Per Day: 1.5 hours per day OT IPOC Problems: Decreased Activ Tolerance, Decreased Safety Aware, Impaired Cognition , Impaired Coordination, Impaired Funct Balance, Impaired I ADL's, Impaired Self -Care Skills OT Treatment, Training and Edu: Yes Plan of Care: ADL Retraining Treatment Duration: Mar 26, 2018 Frequency: At least 5 of 7 days/Wk (IRF) Estimated Hrs Per Day: 1.[address] IPOC Speech Therapy Treatment Plan: Continue Plan of Care Treatment Duration: Mar 20, 2018 Frequency: 5 times per week Estimated Hrs Per Day: .5 hour per day Dietitian/Cs Associate Dietitian/Cs Associate to monitor nutritional status and make changes and/or recommendations as needed and work with speech pathology on dietary upgrades as the occur. Neuropsychology/Psychology Dr Borges for [facility] Physician IP Medical Issues being managed closely and that require the 24 hour availability of a physician: Medical Issues: Falls Precautions, Fluid/Electrolyte/Nutrition Balance Brief Synthesis of Preadmission Screen, Post-Admission Evaluation, and Therapy Evaluations: Therapies will help improve right upper extremity weakness Speech therapy will work on cognition and communication and memory recall Occupational therapy will work on the ability to perform independent ADLs at home Medical Prognosis: Good Anticipated Length of Stay: 14 days ERVIN TRAN DO Mar 17, 2018 07:57
--- NOTE | 2018-03-17 07:58 | PM&R Progress Note ---
Subjective HPI/CC On Admission Date Seen by Provider: Mar 17, 2018 Time Seen by Provider: 08:00 Subjective/Events-last exam Patient doing well Up in the chair and just finished breakfast Denies any pain Wants to go home soon Family support is noted Blood sugars are improving Blood pressure is allowed to be 150 systolic due to high risk for vasovagal and hypotensive syncope Appreciate cardiology management Bowels are moving No shortness of breath Review of Systems General: Fatigue Objective Exam Vital Signs Vital Signs Date Time Temp Pulse Resp B/P (MAP) Pulse Ox O2 Delivery O2 Flow Rate FiO2 03/17/18 17:09 98.0 68 18 162/80 (107) 97 Room Air Capillary Refill : General Appearance: No Apparent Distress, WD/WN, Chronically ill Respiratory: Chest Non Tender, Lungs Clear, Normal Breath Sounds, No Accessory Muscle Use, No Respiratory Distress Cardiovascular: Regular Rate, Rhythm, No Edema, No Gallop, No JVD, No Murmur, Normal Peripheral Pulses 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, Normal Mood/Affect, Aphasia, Depressed Affect, Disoriented, Motor Weakness Results/Procedures Lab Patient resulted labs reviewed. Assessment/Plan Assessment and Plan Assess & Plan/Chief Complaint Assessment: s/p acute episode of syncope due to vasovagal and hypovolemia requiring transfer to ICU for observation and critical care and Cardiology evaluation Subacute CVA with mild hemorrhagic spread of the left MCA distribution status post TPA outside hospital prior to transfer to with a facial and right upper extremity weakness Assessment: Episode of hypovolemic vasovagal syncopal episode requiring rapid response team and critical care consultation and transferred to the ICU now completed resolved CVA subacute s/p tPA OSH before transfer to [facility] 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 ejection fraction 35 percent to Diabetes mellitus out of control Chronic renal insufficiency Noncompliance with medications and medical management in the past Hypothyroidism Poor memory recall Plan: Cardiology consultation is appreciated Monitor closely Therapy services to continue Diagnosis/Problems Diagnosis/Problems (1) Cerebrovascular accident (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 Status: Chronic (2) Syncope and collapse Status: Resolved Resolution Date/Time: 03/13/18 @ 12:38 (3) CAD (coronary artery disease) Status: Chronic Qualifiers: Coronary Disease-Associated Artery/Lesion type: [place] artery [place] vs. transplanted heart: [place] heart Associated angina: without angina Qualified Codes: I25.10 - Atherosclerotic heart disease of [place] coronary artery without angina pectoris (4) Pacemaker Status: Chronic (5) Renal insufficiency Status: Chronic (6) Hyperlipidemia Status: Chronic Qualifiers: Hyperlipidemia type: mixed hyperlipidemia Qualified Codes: E78.2 - Mixed hyperlipidemia (7) Noncompliance Status: Chronic (8) Disorientation Status: Acute (9) Aphasia Status: Acute (10) Memory deficit Status: Acute (11) Elevated troponin Status: Resolved Resolution Date/Time: 03/13/18 @ 12:38 Clinical Quality Measures DVT/VTE Risk/Contraindication: Risk Factor Score Per Nursin RFS Level Per Nursing on Admit: 4+=Very High ERVIN TRAN DO Mar 17, 2018 07:58
--- NOTE | 2018-03-17 08:00 | Cardiology Progress Note ---
Subjective Date Seen by Provider: Mar 17, 2018 Time Seen by Provider: 07:56 Subjective/Events-last exam Patient is sitting up in bed, eating breakfast, no new complaints. Denies any chest pain of dyspnea. Review of Systems General: No Night Sweats, No Fatigue, No Malaise HEENT: No Visual Changes, No Dysphasia, No Sore Throat Pulmonary: No Dyspnea, No Cough Cardiovascular: No: Chest Pain, Palpitations, Paroxysmal Noc. Dyspnea, Edema Gastrointestinal: No: Nausea, Vomiting, Abdominal Pain Genitourinary: No Dysuria, No Frequency Musculoskeletal: No: neck pain, back pain Neurological: No: Weakness, Numbness, Change in speech, Confusion Objective-Cardiology Exam Last Set of Vital Signs Vital Signs 03/17/18 05:56 Temp 97.8 Pulse 65 Resp 18 B/P (MAP) 154/81 (105) Pulse Ox 97 O2 Delivery Room Air Capillary Refill : I&O Intake and Output 03/17/18 00:00 Intake Total 900 ml Balance 900 ml Intake Oral 900 ml # Voids 6 # Bowel Movements 1 General: Alert, Cooperative, Other (O x 1-2) HEENT: Atraumatic, PERRLA Neck: Supple, No Thyromegaly Lungs: Clear to Auscultation, Normal Air Movement Heart: Regular Rate, Normal S1, Normal S2 Abdomen: Normal Bowel Sounds Extremities: No Clubbing, No Cyanosis Skin: No Rashes Neuro: Normal Speech, Cranial Nerves 3-12 NL, Reflexes 2+ Psych/Mental Status: Other (Flat affect) A/P-Cardiology Admission Diagnosis CVA Hypertension Hyperlipidemia Syncope Assessment/Plan Syncope, probably hypotensive episode, vasovagal episode, better at this time, blood pressure is mildly elevated, mainly in the evenings. Toprol was changed to be taken in the evening, continue to monitor. 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 Was receiving physical therapy. Coronary artery disease, non-ST elevation myocardial infarction had elevation in troponin level of 1.5, had ST elevation in V2 with QS in the anterior leads, no reciprocal changes. Conservative management in [facility]. Continue to monitor, history of CABG in the past. Congestive heart failure, chronic compensated left ventricular systolic dysfunction, probably ischemic in nature with ejection fraction reported to be between 35 and 40 percent, continue to monitor at this time Hypertension, status post hypotensive episode, continue to monitor. Hyperlipidemia, maintained on Lipitor, continue to monitor. History of permanent pacemaker, atrial paced rhythm on EKG. Hypothyroidism, managed by primary care physician Okay for discharge from cardiology standpoint Clinical Quality Measures DVT/VTE Risk/Contraindication: Risk Factor Score Per Nursin RFS Level Per Nursing on Admit: 4+=Very High FARHAT LE Mar 17, 2018 07:59
[2018-03-17] MEDS: ASPIRIN E.C. 81 MG (ECOTRIN) TAB PO SCH (08:05)
[2018-03-17] MEDS: CLOPIDOGREL 75 MG (PLAVIX) TABLET PO SCH (08:06)
[2018-03-17] MEDS: lisINopril 10 MG (PRINIVIL) TABLET PO SCH (08:06)
[2018-03-17] MEDS: FAMOTIDINE 20 MG (PEPCID) TABLET PO SCH (08:06)
[2018-03-17 08:09] VITALS: BP 150/82
--- NOTE | 2018-03-17 08:12 | Cardiology Progress Note ---
Subjective Date Seen by Provider: Mar 17, 2018 Time Seen by Provider: 08:12 Subjective/Events-last exam Patient is feeling well. Having no new complaint. Review of Systems General: No Chills, No Night Sweats, No Fatigue, No Malaise, No Appetite, No Other HEENT: No Head Aches, No Visual Changes, No Eye Pain, No Ear Pain, No Dysphasia , No Sinus Congestion, No Post Nasal Drip, No Sore Throat, No Other Pulmonary: No Dyspnea, No Cough, No Pleuritic Chest Pain, No Other Cardiovascular: No: Chest Pain, Palpitations, Orthopnea, Paroxysmal Noc. Dyspnea, Edema, Lt Headedness, Other Objective-Cardiology Exam Last Set of Vital Signs Vital Signs 03/17/18 03/17/18 05:56 08:09 Temp 97.8 Pulse 66 Resp 18 B/P (MAP) 150/82 (104) Pulse Ox 97 O2 Delivery Room Air Capillary Refill : I&O Intake and Output 03/17/18 00:00 Intake Total 900 ml Balance 900 ml Intake Oral 900 ml # Voids 6 # Bowel Movements 1 General: Alert, Cooperative, Other (O x 1-2) HEENT: Atraumatic, PERRLA Neck: Supple, No Thyromegaly Lungs: Clear to Auscultation, Normal Air Movement Heart: Regular Rate, Normal S1, Normal S2 Abdomen: Normal Bowel Sounds Extremities: No Clubbing, No Cyanosis Skin: No Rashes Neuro: Normal Speech, Cranial Nerves 3-12 NL, Reflexes 2+ Psych/Mental Status: Other (Flat affect) Results Lab Laboratory Tests Test 03/16/18 11:53 03/16/18 21:00 03/17/18 04:59 Range/Units Glucometer 118 H 133 H 113 H 70-110 MG/DL A/P-Cardiology Admission Diagnosis CVA Hypertension Hyperlipidemia Syncope Assessment/Plan Syncope, probably hypotensive episode, vasovagal episode, better at this time, blood pressure is mildly elevated, mainly in the evenings. Toprol was changed to be taken in the evening, continue to monitor. 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 Was receiving physical therapy. Coronary artery disease, non-ST elevation myocardial infarction had elevation in troponin level of 1.5, had ST elevation in V2 with QS in the anterior leads, no reciprocal changes. Conservative management in [facility]. Continue to monitor, history of CABG in the past. Congestive heart failure, chronic compensated left ventricular systolic dysfunction, probably ischemic in nature with ejection fraction reported to be between 35 and 40 percent, continue to monitor at this time Hypertension, status post hypotensive episode, continue to monitor. Hyperlipidemia, maintained on Lipitor, continue to monitor. History of permanent pacemaker, atrial paced rhythm on EKG. Hypothyroidism, managed by primary care physician Okay for discharge from cardiology standpoint Clinical Quality Measures DVT/VTE Risk/Contraindication: Risk Factor Score Per Nursin RFS Level Per Nursing on Admit: 4+=Very High JAC MABRY MD Mar 17, 2018 8:12 am
--- NOTE | 2018-03-17 09:39 | Physical Therapy Daily Note ---
PT Daily Note-Current Subjective Pt sitting in recliner in room upon arrival. Pt agrees to PT. Pt continues to demonstrate flat affect. Pain Location: No Pain Reported Mental Status Patient Orientation: Person, Place Transfers Therapy Code Descriptions/Definitions Functional [place] Measure: 0=Not Assessed/NA 4=Minimal Assistance 1=Total Assistance 5=Supervision or Setup 2=Maximal Assistance 6=Modified [place] 3=Moderate Assistance 7=Complete [place] Therapy Quality Codes: 6 Independent with activity with or without an assistive device 5 Patient requires set up or clean up by helper. Patient completes activity by themselves 4 Supervision or touching assist (CGA). [place] provide cues , steadying assist 3 The helper provides less than half the effort to complete the activity 2 The helper provides more than half the effort to complete the activity 1 Dependent. The helper does all the effort to complete an activity 7 Patient refused to complete or attempt activity 9 The patient did not perform the activity before the current illness or injury 88 Not attempted due to Medical conditions or safety concerns Scootin Sit to/from Stand: 6 Sit to Stand (QC): 6 Weight Bearing Right Lower Extremity: Right Full Weight Bearing Left Lower Extremity: Left Full Weight Bearing Gait Training Does the Patient Walk?: Yes Distance (FIM): 3=150 ft Distance: 800' Walk 10 feet (QC): 6 Walk 50 ft with 2 Turns(QC): 6 Walk 150 ft (QC): 6 Gait Level of Assist: 6 Gait Persons Needed: 1 Gait Assistive Device: None Wheelchair Training Does the Pt Use a Wheelchair?: No Stair Training Stair Training: Handrails/: 1 handrail #of Steps: 12 1 Step (curb) (QC): 6 4 Steps (QC): 6 12 Steps (QC): 6 Stairs: Pattern: Reciprocal Level of Assist: 6 Exercises Seated Therapy Exercises: Ankle pumps, Long arc quads, Hip flexion, Kicking activity Seated Reps: 20 Standing: Heel/toe raises, 3 way Ex=Flex, Abd, Ext, Marching Standing Reps: 20 NuStep Minutes: 15 NuStep Workload: 4 Treatments Pt transfers and ambulates at Mod I with safety concerns. Pt uses NuStep for 15m at WL 4 followed by short rest then Seated Ex in chair. Pt takes short rest then completes Standing Ex at //bars. Pt completes 3 sets of 4 steps then short rest. Pt ambulates in hallway and main floor of hospital for activity tolerance and balance practice. Pt returns to recliner at end of tx to rest with all needs met. Assessment Current Status: Good Progress Pt is able to complete tasks and activities given physically but still demonstrates cognitive deficits. PT Short Term Goals Short Term Goals Time Frame: Mar 19, 2018 Transfers (B,C,W/C) (FIM): 6 Gait (FIM): 5 Gait Distance Comment: 300' Gait Level of Assist: 5 PT Penitentiary Goals Penitentiary Goals PT Printing Manager Goals Time Frame: Apr 02, 2018 Transfers (B,C,W/C) (FIM): 7 Sit to Lying (QC): 6 Lying-Sitting on Side/Bed(QC): 6 Sit to Stand (QC): 6 Rollin Roll Left to Right (QC): 6 Chair/Emt-ch-Gkagv Xfer(QC): 6 Car Transfer (QC): 6 Gait (FIM): 7 Distance: 500' Walk 10 feet (QC): 6 Walk 10ft-Uneven Surface(QC): 6 Walk 50ft with 2 Turns (QC): 6 Walk 150 ft (QC): 6 Gait Level of Assist: 7 Gait Assistive Device: None Stairs (FIM): 5 # of Steps: 12 1 Step (curb) (QC): 4 4 Steps (QC): 4 12 Steps (QC): 4 Stairs Level Of Assist: 5 PT Plan Problem List Problem List: Activity Tolerance, Safety Treatment/Plan Treatment Plan: Continue Plan of Care Treatment Plan: Bed Mobility, Education, Functional Activity Sergey, Functional Strength, Group Therapy, Gait, Safety, Therapeutic Exercise, Transfers Treatment Duration: Apr 02, 2018 Frequency: At least 5 of 7 days/Wk (IRF) Estimated Hrs Per Day: 1.5 hours per day Patient and/or Family Agrees t: Yes Safety Risks/Education Patient Education: Gait Training, Transfer Techniques, Correct Positioning, Safety Issues Teaching Recipient: Patient Teaching Methods: Discussion Response to Teaching: Verbalize Understanding Time/GCodes Time In: 815 Time Out: 930 Total Billed Treatment Time: 75 Total Billed Treatment 1, GT x2 (30m), Ex x2 (30m) & FA (15m) G Codes Necessary: GALILEA Noble SENIOR UI UX DESIGNER Mar 17, 2018 09:39
--- NOTE | 2018-03-17 10:25 | NUR ---
Pastoral Care Visit.
--- NOTE | 2018-03-17 11:07 | Speech Therapy Daily Note ---
Speech Daily Progress Note Subjective Date Seen by Provider: Mar 17, 2018 Time Seen by Provider: 00:30 Patient was sitting up in her recliner working on a word search book when I arrived for our skilled therapy session. Objective Patient completed word finding/memory exercises at 80%with minimal cues. Assessment Assessment Current Status: Good Progress Treatment Plan Continue Plan of Care Communication Comprehension: 3 Expression: 3 Social Cognition Social Interaction: 4 Problem Solvin Memory: 2 Speech Short Term Goals Short Term Goals Short Term Goals 1) Patient will complete temporal exercises related to herself at 80% or greater. 2) Patient will complete memory tasks with 80% or greater. 3) Patient will complete problem solving tasks related to daily needs at 80% or greater. Speech Edge Cutter Goals Nursing Home Goals Patient will improve memory, problem solving and orientation skills in order to return home safely with increased independence. Speech-Plan Patient/Family Goals Patient/Family Goals: Patient plan to return home with family post rehab. Treatment Plan Speech Therapy Treatment Plan: Continue Plan of Care Patient is making good progress due to skilled ST services. Treatment Duration: Mar 20, 2018 Frequency: 5 times per week Estimated Hrs Per Day: .5 hour per day Rehab Potential: Good Barriers to Learning: Patient has residual affects from the CVA. Pt/Family Agrees to Plan: Yes Safety Risks/Education Teaching Recipient: Patient Teaching Methods: Discussion Response to Teaching: Verbalize Understanding Education Topics Provided: Safety and communication of needs/wants Time Speech Therapy Time In: 10:30 Speech Therapy Time Out: 11:00 Total Billed Time: 30 Billed Treatment Time 1, VERITO Calix Mar 17, 2018 11:07
--- NOTE | 2018-03-17 13:30 | NUR ---
Per Janell Physical Therapist, patient may be up ad justyn in room.
--- NOTE | 2018-03-17 16:25 | NUR ---
Patient back to floor. VSS. See intervention for details. Addendum: 03/18/18 at 1932 by RA HERNANDEZ RN Wrong patient.
--- NOTE | 2018-03-17 17:00 | NUR ---
[place] to use port per Dr. Crowley. Addendum: 03/18/18 at 1934 by RA HERNANDEZ RN Wrong patient.
[2018-03-17 17:09] VITALS: BP 162/80
--- NOTE | 2018-03-17 19:16 | NUR ---
bedside report received from RA ORTIZ, assume care of pt
--- NOTE | 2018-03-17 20:35 | NUR ---
fsbs 164
[2018-03-17] MEDS: ENOXAPARIN 40 MG/0.4 ML (LOVENOX) SYR SC SCH (20:38)
[2018-03-17] MEDS: ATORVASTATIN 40 MG (LIPITOR) TABLET PO SCH (20:38)
[2018-03-17] MEDS: MELATONIN 3 MG TABLET PO PRN (20:38)
[2018-03-17] MEDS: eZETimibe 10 MG (ZETIA) TABLET PO SCH (20:38)
--- NOTE | 2018-03-17 21:00 | NUR ---
assessments & interventions completed, see assessments & interventions, back to bed, pt up with standby assist to bathroom
[2018-03-18 05:53] VITALS: BP 152/67
[2018-03-18] MEDS: inSUlin ASPART (NovoLOG) 1 UNIT/0.01 ML (CHARGE PER UNIT) SC SCH ×4 (06:00→20:21)
[2018-03-18] MEDS: LEVOTHYROXINE 25 MCG (LEVOTHROID) TAB PO SCH (06:43)
--- NOTE | 2018-03-18 07:13 | Occupational Ther Daily Note ---
OT Current Status-Daily Note Subjective Pt sleeping in bed, woke to touch and name. Breakfast brought to pt. Agrees to therapy. No c/o pain. Pt does not initiate conversation. Will answer questions with 1 to 2 words, nod head or chuckle. Mental Status/Objective Patient Orientation: Person Therapy Code Descriptions/Definitions Functional [place] Measure: 0=Not Assessed/NA 4=Minimal Assistance 1=Total Assistance 5=Supervision or Setup 2=Maximal Assistance 6=Modified [place] 3=Moderate Assistance 7=Complete [place] ADL-Treatment Therapy Code Descriptions/Definitions Functional [place] Measure: 0=Not Assessed/NA 4=Minimal Assistance 1=Total Assistance 5=Supervision or Setup 2=Maximal Assistance 6=Modified [place] 3=Moderate Assistance 7=Complete [place] Therapy Quality Codes: 6 Independent with activity with or without an assistive device 5 Patient requires set up or clean up by helper. Patient completes activity by themselves 4 Supervision or touching assist (CGA). [place] provide cues , steadying assist 3 The helper provides less than half the effort to complete the activity 2 The helper provides more than half the effort to complete the activity 1 Dependent. The helper does all the effort to complete an activity 7 Patient refused to complete or attempt activity 9 The patient did not perform the activity before the current illness or injury 88 Not attempted due to Medical conditions or safety concerns Eating (FIM): 6 (Dentures. Pt able to complete by self.) Eating (QC): 6 Grooming (FIM): 7 (Standing at sink, pt able to complete by self.) Oral Hygiene (QC): 6 Bathing (FIM): 6 (Pt stands throughout shower using hand held shower and grabbars. Completes all by self.) Bathing Location: L Arm, R Arm, L Upper Leg, R Upper Leg, L Lower Leg ( including foot), R Lower Leg (including foot), Chest, Abdomen, Buttocks, Perineal Area Shower/Bathe Self (QC): 6 Upper Body (FIM): 7 (Retrieves clothing, transports and dons/doffs by self.) Upper Body Dressing (QC): 6 Lower Body Dressing (FIM): 6 (Retrieves clothing, transports and dons/doffs by self. Safety concerns, stands to don/doff lower body clothing. Sits to don/ doff socks.) Lower Body Dressing (QC): 6 On/Off Footwear (QC): 6 Toileting (FIM): 7 (Completes by self.) Toileting Hygiene (QC): 6 Transfers (B, C, W/C) (FIM): 7 (Does not use AE. Completes by self.) Toilet/Commode Transfer (FIM): 7 (Does not use AE. Completes by self.) Toilet Transfer (QC): 6 Shower Transfer(FIM): 7 (Completes by self.) Pt made bed by self, no LOB. Pt completed laundry with minimal verbal cues. Pt demonstrates ability to complete normal routine tasks with independence though when pt is placed in new environment or situation verbal cues are needed to guide pt through initial part of task. Pt ambulated to [facility] kitchen and poured self coffee and added creamer then took to table in commons area to drink. PT took over care of pt. All needs met. OT Short Term Goals Short Term Goals Transfers (B,C,W/C) (FIM): 6 1=Demonstrate adherence to instructed precautions during ADL tasks. 2=Patient will verbalize/demonstrate understanding of assistive devices/ modifications for ADL. 3=Patient will improve strength/tolerance for activity to enable patient to perform ADL's. OT Stone Banker Goals Stone Banker Goals Eating (FIM): 6 (met) Eating (QC): 6 (met) Groomin (met) Oral Hygiene (QC): 6 (met) Bathing(FIM): 5 (met) Shower/Bathe Self (QC): 5 (met) Upper Body Dressing(FIM): 6 (met) Upper Body Dressing (QC): 6 (met) Lower Body Dressing(FIM): 6 (met) Lower Body Dressing (QC): 6 (met) On/Off Footwear (QC): 6 (met) Toileting(FIM): 6 (met) Toileting Hygiene (QC): 6 (met) Transfers (B,C,W/C) (FIM): 6 (met) Toilet/Commode Transfer(FIM): 6 (met) Toilet/Commode Transfer (QC): 6 (met) Shower Transfer(FIM): 5 (met) 1=Demonstrate adherence to instructed precautions during ADL tasks. 2=Patient will verbalize/demonstrate understanding of assistive devices/ modifications for ADL. 3=Patient will improve strength/tolerance for activity to enable patient to perform ADL's. OT Education/Plan Discharge Recommendations Plan/Recommendations: Continue POC Therapy D/C Recommendations: Occupational Therapy Home Care, Scheduled Assistance Treatment Plan/Plan of Care Patient would benefit from OT for education, treatment and training to promote independence in ADL's, mobility, safety and/or upper extremity function for ADL' s. Plan of Care: ADL Retraining Treatment Duration: Mar 26, 2018 Frequency: At least 5 of 7 days/Wk (IRF) Estimated Hrs Per Day: 1.5 hours per day Rehab Potential: Good Time/GCodes Start Time: 06:45 Stop Time: 08:15 Total Time Billed (hr/min): 90 Billed Treatment Time 1 visit-ADL 5 (75 min) FA 1 (15 min) JOHN HOANG Mar 18, 2018 07:13
--- NOTE | 2018-03-18 07:14 | NUR ---
bedside report given to RA ORTIZ
--- NOTE | 2018-03-18 08:16 | PM&R Progress Note ---
Subjective This was a face to face visit with the patient. Date Seen by Provider: Mar 18, 2018 Time Seen by Provider: 08:00 Subjective/Events-last exam Patient was seen in group therapy room and she was working on a puzzle Is able to ambulate without a walker or any other assistive devices Set for discharge tomorrow on 03/19/18 Family support with Gautam and Criselda will be sought out today to evaluate direct observe therapy for her home medications since noncompliance placed her at risk for hypertensive and ischemic stroke. Physical therapy states she is independent with her ADLs Occupational Therapy reports she needs cues and prompting to feed herself Speech reports memory is better overall very improved Cognitively is a concern whether she will continue taking her meds and taking care of herself Will need home health RN with PT and OT with [facility] at discharge tomorrow Sugars are much better Blood pressure has stabilized but high risk for hypotension and vasovagal syncope Will need to follow-up with Dr. Gibson at discharge. Review of Systems General: Fatigue Neurological: Change in speech, Confusion Objective Physician Exam Last Set of Vital Signs Vital Signs Date Time Temp Pulse Resp B/P (MAP) Pulse Ox O2 Delivery O2 Flow Rate FiO2 03/18/18 05:53 98.5 65 18 152/67 (95) 97 Room Air Capillary Refill : I&O Intake and Output 03/18/18 00:00 Intake Total 700 ml Balance 700 ml Intake Oral 700 ml # Voids 6 # Bowel Movements 1 General: Alert, Cooperative, Other (O x 1-2) HEENT: Atraumatic, PERRLA Neck: Supple, No Thyromegaly Lungs: Clear to Auscultation, Normal Air Movement Heart: Regular Rate, Normal S1, Normal S2 Abdomen: Normal Bowel Sounds Extremities: No Clubbing, No Cyanosis Skin: No Rashes Neuro: Normal Speech, Cranial Nerves 3-12 NL, Reflexes 2+ Psych/Mental Status: Other (Flat affect) Results Lab Data Laboratory Tests 03/15/18 16:06: Glucometer 142H 03/15/18 20:38: Glucometer 244H 03/16/18 04:36: Glucometer 96 03/16/18 11:53: Glucometer 118H 03/16/18 21:00: Glucometer 133H 03/17/18 04:59: Glucometer 113H 03/17/18 20:37: Glucometer 164H 03/18/18 05:46: Glucometer 99 Current Funtional Status Discharge plan for tomorrow We will need all home health services ordered Does not need any assistive devices We will reach out to the family members to assure they can direct observe treatment process for blood pressure medications Started metformin due to overall improved blood sugar and does not need an oral hypoglycemic or insulin Expressive aphasia is improved Assessment/Plan Assessment and Plan (1) Cerebrovascular accident (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 Status: Chronic (2) Syncope and collapse Status: Resolved (3) CAD (coronary artery disease) Qualifiers: Qualified Codes: I25.10 - Atherosclerotic heart disease of [place] coronary artery without angina pectoris Status: Chronic (4) Pacemaker Status: Chronic (5) Renal insufficiency Status: Chronic (6) Hyperlipidemia Qualifiers: Qualified Codes: E78.2 - Mixed hyperlipidemia Status: Chronic (7) Noncompliance Status: Chronic (8) Disorientation Status: Acute (9) Aphasia Status: Acute (10) Memory deficit Status: Acute (11) Elevated troponin Status: Resolved (12) Expressive aphasia Status: Acute (13) Confusion Status: Acute Co-Morbidities that are continuing to impact the rehab process: (include details ) ERVIN TRAN DO Mar 18, 2018 08:16
--- NOTE | 2018-03-18 08:23 | Cardiology Progress Note ---
Subjective Date Seen by Provider: Mar 18, 2018 Time Seen by Provider: 08:21 Subjective/Events-last exam Patient is sitting at table, no new complaint. Still has mild aphasia. Denies any chest pain or dyspnea. Review of Systems General: No Night Sweats, No Fatigue, No Malaise HEENT: No Visual Changes, No Dysphasia Pulmonary: No Dyspnea, No Cough Cardiovascular: No: Chest Pain, Palpitations Gastrointestinal: No: Nausea, Vomiting, Abdominal Pain Genitourinary: No Dysuria, No Frequency Musculoskeletal: No: neck pain, back pain Neurological: Change in speech (mild aphasia); No: Weakness, Numbness, Confusion Objective-Cardiology Exam Last Set of Vital Signs Vital Signs 03/18/18 05:53 Temp 98.5 Pulse 65 Resp 18 B/P (MAP) 152/67 (95) Pulse Ox 97 O2 Delivery Room Air Capillary Refill : I&O Intake and Output 03/18/18 00:00 Intake Total 700 ml Balance 700 ml Intake Oral 700 ml # Voids 6 # Bowel Movements 1 General: Alert, Cooperative, Other (O x 1-2) HEENT: Atraumatic, PERRLA Neck: Supple, No Thyromegaly Lungs: Clear to Auscultation, Normal Air Movement Heart: Regular Rate, Normal S1, Normal S2 Abdomen: Normal Bowel Sounds Extremities: No Clubbing, No Cyanosis Skin: No Rashes Neuro: Normal Speech, Cranial Nerves 3-12 NL, Reflexes 2+ Psych/Mental Status: Other (Flat affect) A/P-Cardiology Admission Diagnosis CVA Hypertension Hyperlipidemia Syncope Assessment/Plan Syncope, probably hypotensive episode, vasovagal episode, better at this time, blood pressure is mildly elevated, mainly in the evenings. Toprol was changed to be taken in the evening, continue to monitor. 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 Was receiving physical therapy. Coronary artery disease, non-ST elevation myocardial infarction had elevation in troponin level of 1.5, had ST elevation in V2 with QS in the anterior leads, no reciprocal changes. Conservative management in [facility]. Continue to monitor, history of CABG in the past. Congestive heart failure, chronic compensated left ventricular systolic dysfunction, probably ischemic in nature with ejection fraction reported to be between 35 and 40 percent, continue to monitor at this time Hypertension, status post hypotensive episode, continue to monitor. Hyperlipidemia, maintained on Lipitor, continue to monitor. History of permanent pacemaker, atrial paced rhythm on EKG. Hypothyroidism, managed by primary care physician Okay for discharge from cardiology standpoint Clinical Quality Measures DVT/VTE Risk/Contraindication: Risk Factor Score Per Nursin RFS Level Per Nursing on Admit: 4+=Very High FARHAT LE Mar 18, 2018 08:23
[2018-03-18 08:32] VITALS: BP 152/69
[2018-03-18] MEDS: ASPIRIN E.C. 81 MG (ECOTRIN) TAB PO SCH (09:02)
[2018-03-18] MEDS: metFORMIN 500 MG (GLUCOPHAGE) TAB PO SCH (09:02)
[2018-03-18] MEDS: lisINopril 10 MG (PRINIVIL) TABLET PO SCH (09:03)
[2018-03-18] MEDS: CLOPIDOGREL 75 MG (PLAVIX) TABLET PO SCH (09:03)
[2018-03-18] MEDS: FAMOTIDINE 20 MG (PEPCID) TABLET PO SCH (09:03)
--- NOTE | 2018-03-18 09:30 | Physical Therapy Daily Note ---
PT Daily Note-Current Subjective Pt sitting in Therapy Commons area working on puzzle with OT upon arrival. Pt agrees to PT for FIM scoring. Pt appears a little more cognitive this morning. Pain Location: No Pain Reported Mental Status Patient Orientation: Person, Place, Time Transfers Therapy Code Descriptions/Definitions Functional [place] Measure: 0=Not Assessed/NA 4=Minimal Assistance 1=Total Assistance 5=Supervision or Setup 2=Maximal Assistance 6=Modified [place] 3=Moderate Assistance 7=Complete [place] Therapy Quality Codes: 6 Independent with activity with or without an assistive device 5 Patient requires set up or clean up by helper. Patient completes activity by themselves 4 Supervision or touching assist (CGA). [place] provide cues , steadying assist 3 The helper provides less than half the effort to complete the activity 2 The helper provides more than half the effort to complete the activity 1 Dependent. The helper does all the effort to complete an activity 7 Patient refused to complete or attempt activity 9 The patient did not perform the activity before the current illness or injury 88 Not attempted due to Medical conditions or safety concerns Transfers (B, C, W/C) (FIM): 6 Scootin Rollin Roll Left to Right (QC): 6 Supine to/from Sit: 6 Sit to/from Stand: 6 Sit to Lying (QC): 6 Sit to Stand (QC): 6 Chair/Xyv-hp-Bmtcn Xfer(QC): 6 Bed to/from Chair: 6 Car Transfer (QC): 6 Weight Bearing Right Lower Extremity: Right Full Weight Bearing Left Lower Extremity: Left Full Weight Bearing Gait Training Does the Patient Walk?: Yes Gait (FIM): 6 Distance (FIM): 3=150 ft Distance: 400' Walk 10 feet (QC): 6 Walk 50 ft with 2 Turns(QC): 6 Walk 150 ft (QC): 6 Walking 10ft/uneven surface-QC: 6 Gait Level of Assist: 6 Gait Persons Needed: 1 Gait Assistive Device: None Pt walks with slower, cautious gait pattern but steady with no LOB. Wheelchair Training Does the Pt Use a Wheelchair?: No Stair Training Stair Training: Handrails/: 1 handrail Stairs (FIM): 6 #of Steps: 12 1 Step (curb) (QC): 6 4 Steps (QC): 6 12 Steps (QC): 6 Stairs: Pattern: Reciprocal Level of Assist: 6 Balance Picking up an Object (QC): 6 Exercises Seated Therapy Exercises: Ankle pumps, Long arc quads, Hip flexion, Kicking activity Seated Reps: 20 NuStep Minutes: 15 NuStep Workload: 5 Treatments Pt transfers including bed mobility and car transfer at [facility]. Pt ambulates in hallway and across varying surface w/o AD at [facility]. Pt is able to picker tender helper object from floor w/o LOB. Pt completes 3 sets of 4 steps. Pt uses NuStep for 15m at 5. Pt completes Seated Ex with short rest break. Pt returns to room at end of tx to rest in recliner with all needs met. Assessment Current Status: Good Progress Pt is able to complete tasks and activities with little difficulty physically although still demonstrates some cognitive deficits especially with sequencing and problem solving for safety. PT Short Term Goals Short Term Goals Time Frame: Mar 19, 2018 Transfers (B,C,W/C) (FIM): 6 Gait (FIM): 5 Gait Distance Comment: 300' Gait Level of Assist: 5 PT Lean Manager Goals Lean Manager Goals PT Lean Manager Goals Time Frame: Apr 02, 2018 Transfers (B,C,W/C) (FIM): 7 Sit to Lying (QC): 6 Lying-Sitting on Side/Bed(QC): 6 Sit to Stand (QC): 6 Rollin Roll Left to Right (QC): 6 Chair/Ouu-sq-Vftya Xfer(QC): 6 Car Transfer (QC): 6 Gait (FIM): 7 Distance: 500' Walk 10 feet (QC): 6 Walk 10ft-Uneven Surface(QC): 6 Walk 50ft with 2 Turns (QC): 6 Walk 150 ft (QC): 6 Gait Level of Assist: 7 Gait Assistive Device: None Stairs (FIM): 5 # of Steps: 12 1 Step (curb) (QC): 4 4 Steps (QC): 4 12 Steps (QC): 4 Stairs Level Of Assist: 5 PT Plan Problem List Problem List: Activity Tolerance Treatment/Plan Treatment Plan: Continue Plan of Care Treatment Plan: Bed Mobility, Education, Functional Activity Sergey, Functional Strength, Group Therapy, Gait, Safety, Therapeutic Exercise, Transfers Treatment Duration: Apr 02, 2018 Frequency: At least 5 of 7 days/Wk (IRF) Estimated Hrs Per Day: 1.5 hours per day Patient and/or Family Agrees t: Yes Safety Risks/Education Patient Education: Gait Training, Transfer Techniques, Correct Positioning, Safety Issues Teaching Recipient: Patient Teaching Methods: Discussion Response to Teaching: Verbalize Understanding Time/GCodes Time In: 815 Time Out: 930 Total Billed Treatment Time: 75 Total Billed Treatment 1, GT (15m), FA x2 (30m) & EX x2 (30m) G Codes Necessary: GALILEA Noble HAM STRINGER Mar 18, 2018 09:29
--- NOTE | 2018-03-18 10:22 | Speech Therapy Daily Note ---
Speech Daily Progress Note Subjective Date Seen by Provider: Mar 18, 2018 Time Seen by Provider: 00:30 Patient was sitting in her recliner working in a word search book. Objective Patient completed memory task with 90% accuracy given minimal cues. Assessment Assessment Current Status: Good Progress Treatment Plan Continue Plan of Care Communication Comprehension: 3 Expression: 3 Social Cognition Social Interaction: 4 Problem Solvin Memory: 2 Speech Short Term Goals Short Term Goals Short Term Goals 1) Patient will complete temporal exercises related to herself at 80% or greater. 2) Patient will complete memory tasks with 80% or greater. 3) Patient will complete problem solving tasks related to daily needs at 80% or greater. Speech Pharm Tech Goals [facility] Goals Patient will improve memory, problem solving and orientation skills in order to return home safely with increased independence. Speech-Plan Patient/Family Goals Patient/Family Goals: Patient plans to be returning home tomorrow with family. Treatment Plan Speech Therapy Treatment Plan: Continue Plan of Care Patient has made good progress due to skilled therapy. Treatment Duration: Mar 19, 2018 Frequency: 5 times per week Estimated Hrs Per Day: .5 hour per day Rehab Potential: Good Barriers to Learning: Patient has residual difficulties related to recent CVA. Pt/Family Agrees to Plan: Yes Safety Risks/Education Teaching Recipient: Patient Teaching Methods: Discussion Response to Teaching: Verbalize Understanding Education Topics Provided: Safety strategies upon her return home. Time Speech Therapy Time In: 09:30 Speech Therapy Time Out: 10:00 Total Billed Time: 30 Billed Treatment Time [address] Mar 18, 2018 10:22
--- NOTE | 2018-03-18 14:41 | Cardiology Progress Note ---
Subjective Date Seen by Provider: Mar 18, 2018 Time Seen by Provider: 14:41 Subjective/Events-last exam Patient is sitting in a chair, feeling better, no new complaint Review of Systems General: No Chills, No Night Sweats, No Fatigue, No Malaise, No Appetite, No Other HEENT: No Head Aches, No Visual Changes, No Eye Pain, No Ear Pain, No Dysphasia , No Sinus Congestion, No Post Nasal Drip, No Sore Throat, No Other Pulmonary: No Dyspnea, No Cough, No Pleuritic Chest Pain, No Other Cardiovascular: No: Chest Pain, Palpitations, Orthopnea, Paroxysmal Noc. Dyspnea, Edema, Lt Headedness, Other Objective-Cardiology Exam Last Set of Vital Signs Vital Signs 03/18/18 03/18/18 03/18/18 05:53 08:32 09:00 Temp 98.5 Pulse 73 Resp 18 B/P (MAP) 152/69 (96) Pulse Ox 97 O2 Delivery Room Air Capillary Refill : I&O Intake and Output 03/18/18 00:00 Intake Total 700 ml Balance 700 ml Intake Oral 700 ml # Voids 6 # Bowel Movements 1 General: Alert, Cooperative, Other (O x 1-2) HEENT: Atraumatic, PERRLA Neck: Supple, No Thyromegaly Lungs: Clear to Auscultation, Normal Air Movement Heart: Regular Rate, Normal S1, Normal S2 Abdomen: Normal Bowel Sounds Extremities: No Clubbing, No Cyanosis Skin: No Rashes Neuro: Normal Speech, Cranial Nerves 3-12 NL, Reflexes 2+ Psych/Mental Status: Other (Flat affect) Results Lab Laboratory Tests Test 03/17/18 20:37 03/18/18 05:46 Range/Units Glucometer 164 H 99 70-110 MG/DL A/P-Cardiology Admission Diagnosis CVA Hypertension Hyperlipidemia Syncope Assessment/Plan Syncope, probably hypotensive episode, vasovagal episode, better at this time, blood pressure is mildly elevated, mainly in the evenings. Toprol was changed to be taken in the evening, continue to monitor. 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 Was receiving physical therapy. Coronary artery disease, non-ST elevation myocardial infarction had elevation in troponin level of 1.5, had ST elevation in V2 with QS in the anterior leads, no reciprocal changes. Conservative management in [facility]. Continue to monitor, history of CABG in the past. Congestive heart failure, chronic compensated left ventricular systolic dysfunction, probably ischemic in nature with ejection fraction reported to be between 35 and 40 percent, continue to monitor at this time Hypertension, status post hypotensive episode, continue to monitor. Hyperlipidemia, maintained on Lipitor, continue to monitor. History of permanent pacemaker, atrial paced rhythm on EKG. Hypothyroidism, managed by primary care physician Okay for discharge from cardiology standpoint Clinical Quality Measures DVT/VTE Risk/Contraindication: Risk Factor Score Per Nursin RFS Level Per Nursing on Admit: 4+=Very High JAC MABRY MD Mar 18, 2018 2:41 pm
--- NOTE | 2018-03-18 14:54 | NUR ---
Team Conference Left a message for patient's son, Gautam, to discuss weekly team conference and recommendation of discharge on 03/19/18 with [facility] RN, PT, OT, SUPERCALENDER OPERATOR and bath aide.
--- NOTE | 2018-03-18 16:04 | NUR ---
Team Conference Left a message for Criselda, patient's [id number], regarding discharge plan for 03/19/18. Will await return phone call from Criselda or Gautam before proceeding with [facility] choice form.
[2018-03-18 17:44] VITALS: BP 149/77
--- NOTE | 2018-03-18 19:17 | NUR ---
bedside report received from RA ORTIZ, assume care of pt
[2018-03-18] MEDS: ENOXAPARIN 40 MG/0.4 ML (LOVENOX) SYR SC SCH (20:08)
[2018-03-18] MEDS: eZETimibe 10 MG (ZETIA) TABLET PO SCH (20:10)
[2018-03-18] MEDS: ATORVASTATIN 40 MG (LIPITOR) TABLET PO SCH (20:10)
[2018-03-18] MEDS: MELATONIN 3 MG TABLET PO PRN (20:10)
--- NOTE | 2018-03-18 20:12 | NUR ---
fsbs 172, no ss insulin req, takes pills well with water, stable on feet
--- NOTE | 2018-03-18 21:00 | NUR ---
assessments & interventions completed, see assessments & interventions
[2018-03-19 05:10] VITALS: BP 154/81
[2018-03-19] MEDS: inSUlin ASPART (NovoLOG) 1 UNIT/0.01 ML (CHARGE PER UNIT) SC SCH ×4 (06:00→21:22)
[2018-03-19] MEDS: LEVOTHYROXINE 25 MCG (LEVOTHROID) TAB PO SCH (06:23)
[2018-03-19] MEDS: metFORMIN 500 MG (GLUCOPHAGE) TAB PO SCH (06:23)
--- NOTE | 2018-03-19 07:08 | NUR ---
bedside report given to CHARANJIT ORTIZ
--- NOTE | 2018-03-19 07:28 | Cardiology Progress Note ---
Subjective Date Seen by Provider: Mar 19, 2018 Time Seen by Provider: 07:25 Subjective/Events-last exam Patient is sitting in a chair, feeling better, no new complaint Review of Systems General: No Chills, No Night Sweats, No Fatigue, No Malaise, No Appetite, No Other HEENT: No Head Aches, No Visual Changes, No Eye Pain, No Ear Pain, No Dysphasia , No Sinus Congestion, No Post Nasal Drip, No Sore Throat, No Other Pulmonary: No Dyspnea, No Cough, No Pleuritic Chest Pain, No Other Cardiovascular: No: Chest Pain, Palpitations, Orthopnea, Paroxysmal Noc. Dyspnea, Edema, Lt Headedness, Other Objective-Cardiology Exam Last Set of Vital Signs Vital Signs 03/19/18 05:10 Temp 97.2 Pulse 66 Resp 18 B/P (MAP) 154/81 (105) Pulse Ox 96 O2 Delivery Room Air Capillary Refill : I&O Intake and Output 03/19/18 00:00 Intake Total 990 ml Balance 990 ml Intake Oral 990 ml # Voids 6 General: Alert, Cooperative, Other (O x 1-2) HEENT: Atraumatic, PERRLA Neck: Supple, No Thyromegaly Lungs: Clear to Auscultation, Normal Air Movement Heart: Regular Rate, Normal S1, Normal S2 Abdomen: Normal Bowel Sounds Extremities: No Clubbing, No Cyanosis Skin: No Rashes Neuro: Normal Speech, Cranial Nerves 3-12 NL, Reflexes 2+ Psych/Mental Status: Other (Flat affect) Results Lab Laboratory Tests Test 03/18/18 20:20 03/19/18 05:27 Range/Units Glucometer 172 H 130 H 70-110 MG/DL A/P-Cardiology Admission Diagnosis CVA Hypertension Hyperlipidemia Syncope Assessment/Plan Syncope, probably hypotensive episode, vasovagal episode, better at this time, blood pressure is mildly elevated, mainly in the evenings. 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 Was receiving physical therapy. Coronary artery disease, non-ST elevation myocardial infarction had elevation in troponin level of 1.5, had ST elevation in V2 with QS in the anterior leads, no reciprocal changes. Conservative management in [facility]. Continue to monitor, history of CABG in the past. Congestive heart failure, chronic compensated left ventricular systolic dysfunction, probably ischemic in nature with ejection fraction reported to be between 35 and 40 percent, continue to monitor at this time Hypertension, status post hypotensive episode, I will increase Toprol and evaluate tolerance and response Hyperlipidemia, maintained on Lipitor, continue to monitor. History of permanent pacemaker, atrial paced rhythm on EKG. Hypothyroidism, managed by primary care physician Okay for discharge from cardiology standpoint Clinical Quality Measures DVT/VTE Risk/Contraindication: Risk Factor Score Per Nursin RFS Level Per Nursing on Admit: 4+=Very High JAC MABRY MD Mar 19, 2018 07:28
--- NOTE | 2018-03-19 07:34 | Occupational Ther Daily Note ---
OT Current Status-Daily Note Subjective Pt alert, sitting in recliner. Pt smiles and is pleasant, does not communicate a lot. Pt will smile and state short answer to questions or chuckle. Mental Status/Objective Patient Orientation: Person Therapy Code Descriptions/Definitions Functional [place] Measure: 0=Not Assessed/NA 4=Minimal Assistance 1=Total Assistance 5=Supervision or Setup 2=Maximal Assistance 6=Modified [place] 3=Moderate Assistance 7=Complete [place] ADL-Treatment Declines shower at this time.Pt stands to complete lower body dressing while holding onto stable surface, no LOB noted. When task and environment is familiar pt is able to complete without any assistance, verbal or gestural cues. Therapy Code Descriptions/Definitions Functional [place] Measure: 0=Not Assessed/NA 4=Minimal Assistance 1=Total Assistance 5=Supervision or Setup 2=Maximal Assistance 6=Modified [place] 3=Moderate Assistance 7=Complete [place] Therapy Quality Codes: 6 Independent with activity with or without an assistive device 5 Patient requires set up or clean up by helper. Patient completes activity by themselves 4 Supervision or touching assist (CGA). [place] provide cues , steadying assist 3 The helper provides less than half the effort to complete the activity 2 The helper provides more than half the effort to complete the activity 1 Dependent. The helper does all the effort to complete an activity 7 Patient refused to complete or attempt activity 9 The patient did not perform the activity before the current illness or injury 88 Not attempted due to Medical conditions or safety concerns Eating (FIM): 6 (Dentures. Opens container/packages, uses regular utensils.) Eating (QC): 6 Grooming (FIM): 7 (Standing at sink, pt able to complete.) Oral Hygiene (QC): 6 Upper Body (FIM): 7 (Completes by self, no AE needed.) Upper Body Dressing (QC): 6 Lower Body Dressing (FIM): 7 (Pt completes in standing.) Lower Body Dressing (QC): 6 On/Off Footwear (QC): 6 Toileting (FIM): 7 (Completes by self, no AE.) Toileting Hygiene (QC): 6 Transfers (B, C, W/C) (FIM): 7 (No AE or LOB noted.) Toilet/Commode Transfer (FIM): 7 (No AE or LOB noted.) Toilet Transfer (QC): 6 Other Treatment Pt ambulated to laundry and completed laundry task, no LOB noted. Pt then was able to get own coffee and take to therapy gym. Pt complete fine motor problem solving tasks with initial direction then completed by self. Pt was able to match safe/unsafe situations in pics 100% after initial directions and minimal verbal cues. After therapy, pt sitting in recliner with call light in reach. All needs met in room. OT Short Term Goals Short Term Goals Transfers (B,C,W/C) (FIM): 6 1=Demonstrate adherence to instructed precautions during ADL tasks. 2=Patient will verbalize/demonstrate understanding of assistive devices/ modifications for ADL. 3=Patient will improve strength/tolerance for activity to enable patient to perform ADL's. OT Retirement Goals Elevator Constructor Electric Goals Eating (FIM): 6 Eating (QC): 6 Groomin Oral Hygiene (QC): 6 Bathing(FIM): 5 Shower/Bathe Self (QC): 5 Upper Body Dressing(FIM): 6 Upper Body Dressing (QC): 6 Lower Body Dressing(FIM): 6 Lower Body Dressing (QC): 6 On/Off Footwear (QC): 6 Toileting(FIM): 6 Toileting Hygiene (QC): 6 Transfers (B,C,W/C) (FIM): 6 Toilet/Commode Transfer(FIM): 6 Toilet/Commode Transfer (QC): 6 Shower Transfer(FIM): 5 1=Demonstrate adherence to instructed precautions during ADL tasks. 2=Patient will verbalize/demonstrate understanding of assistive devices/ modifications for ADL. 3=Patient will improve strength/tolerance for activity to enable patient to perform ADL's. OT Education/Plan Discharge Recommendations Plan/Recommendations: Continue POC Treatment Plan/Plan of Care Patient would benefit from OT for education, treatment and training to promote independence in ADL's, mobility, safety and/or upper extremity function for ADL' s. Plan of Care: ADL Retraining Treatment Duration: Mar 26, 2018 Frequency: At least 5 of 7 days/Wk (IRF) Estimated Hrs Per Day: 1.5 hours per day Rehab Potential: Good Time/GCodes Start Time: 07:05 Stop Time: 08:20 Total Time Billed (hr/min): 75 Billed Treatment Time 1 visit-ADL 4 (65 min) EX 1 (10 min) JOHN HOANG Mar 19, 2018 07:34
[2018-03-19] MEDS ORDERED: ATOR40TA PO (08:53)
[2018-03-19] MEDS ORDERED: FAMO20TA5 PO (08:53)
[2018-03-19] MEDS ORDERED: ASPI-983 PO (08:53)
[2018-03-19] MEDS ORDERED: EZET10TA5 PO (08:53)
[2018-03-19] MEDS ORDERED: CITA20TA9 PO (08:53)
[2018-03-19] MEDS ORDERED: LEVO25TA5 PO (08:53)
[2018-03-19] MEDS ORDERED: TRAM50TA2 PO (08:53)
[2018-03-19] MEDS ORDERED: METF-397 PO (08:53)
[2018-03-19] MEDS ORDERED: LISI10TA2 PO (08:53)
[2018-03-19] MEDS ORDERED: METO-387 PO (08:53)
[2018-03-19] MEDS ORDERED: CLOP75TA28 PO (08:53)
--- NOTE | 2018-03-19 08:57 | Discharge Summary ---
Diagnosis/Chief Complaint Date of Admission Mar 11, 2018 at 17:00 Date of Discharge Discharge Date: Mar 19, 2018 Reason Hospital Visit CC: CVA residual HPI: This is a 78-year-old white female clinic patient of Dr. Gibson in [place] who presents to the inpatient rehab facility due to deficits sustained in a stroke 3 days prior. Apparently she presented to an outside hospital with abrupt onset of right-sided weakness was given TPA since she was within the 4- hour window and was flown to [facility] for stroke care. She was managed aggressively had a stroke score of 12 on admission she did have hemorrhagic spread of the area of the infarct but that was minimal. She sustained right sided weakness due to the stroke affecting the left MCA territory and continues to have a aphasia and keeps conversations brief due to the fact she cannot carry on a normal conversation like she had prior. She is able to swallow regular solids and liquids and she did have an elevated troponin managed by cardiology in a conservative manner with ejection fraction on echocardiogram revealing 35%. The troponin was elevated but decreased throughout the hospital course and did not require any aggressive intervention. There is no thrombosis in the arterial system intracranial imaging and blood pressure is been good as well as her complete blood count normal white count and creatinine. Her blood sugars show pre-diabetes with hemoglobin A1c of 6.4. At this current time her comorbidities include CAD, permanent pacemaker, chronic renal insufficiency, hypertension, and pre-diabetes. She currently thinks President Camilo is the rv repairer. She cannot recall who her sericulture teacher is. She reports that she is at [facility] although she is in [facility] but she does live in [place]. She does not know why she is in inpatient rehab facility. Discharge Summary Discharge Physical Examination Allergies: Coded Allergies: NKANo Known Allergies (Unverified Allergy, Mild, 07/03/08) Vitals & I&Os Vital Signs Date Time Temp Pulse Resp B/P (MAP) Pulse Ox O2 Delivery O2 Flow Rate FiO2 03/19/18 17:55 97.1 65 16 158/77 (104) 99 Room Air Hospital Course Labs (last 24 hrs) Laboratory Tests 03/11/18 21:29: Glucometer 227H 03/12/18 05:18: Glucometer 93 03/12/18 05:20: White Blood Count 5.8, Red Blood Count 4.15L, Hemoglobin 12.2, Hematocrit 37, Mean Corpuscular Volume 88, Mean Corpuscular Hemoglobin 29, Mean Corpuscular Hemoglobin Concent 33, Red Cell Distribution Width 14.1, Platelet Count 153, Mean Platelet Volume 11.6H, Neutrophils (%) (Auto) 62, Lymphocytes (%) (Auto) 25 , Monocytes (%) (Auto) 11, Eosinophils (%) (Auto) 1, Basophils (%) (Auto) 1, Neutrophils # (Auto) 3.6, Lymphocytes # (Auto) 1.4, Monocytes # (Auto) 0.6, Eosinophils # (Auto) 0.1, Basophils # (Auto) 0.0, Sodium Level 137, Potassium Level 4.3, Chloride Level 103, Carbon Dioxide Level 22, Anion Gap 12, Blood Urea Nitrogen 21H, Creatinine 1.14, Estimat Glomerular Filtration Rate 46, BUN/ Creatinine Ratio 18, Glucose Level 95, Calcium Level 8.9, Corrected Calcium 9.4 , Total Bilirubin 0.7, Aspartate Amino Transf (AST/SGOT) 27, Alanine Aminotransferase (ALT/SGPT) 13, Alkaline Phosphatase 72, Total Protein 5.7L, Albumin 3.4, Thyroid Stimulating Hormone (TSH) 7.66H 03/12/18 11:23: Glucometer 182H 03/13/18 20:48: Glucometer 178H 03/14/18 04:41: Glucometer 108 03/14/18 20:43: Glucometer 161H 03/15/18 05:06: Glucometer 87 03/15/18 16:06: Glucometer 142H 03/15/18 20:38: Glucometer 244H 03/16/18 04:36: Glucometer 96 03/16/18 11:53: Glucometer 118H 03/16/18 21:00: Glucometer 133H 03/17/18 04:59: Glucometer 113H 03/17/18 20:37: Glucometer 164H 03/18/18 05:46: Glucometer 99 03/18/18 20:20: Glucometer 172H 03/19/18 05:27: Glucometer 130H 03/19/18 11:21: Glucometer 118H 03/19/18 16:46: Glucometer 182H Pending Labs Laboratory Tests 03/11/18 21:29: Glucometer 227 03/12/18 05:18: Glucometer 93 03/12/18 05:20: White Blood Count 5.8, Red Blood Count 4.15, Hemoglobin 12.2, Hematocrit 37, Mean Corpuscular Volume 88, Mean Corpuscular Hemoglobin 29, Mean Corpuscular Hemoglobin Concent 33, Red Cell Distribution Width 14.1, Platelet Count 153, Mean Platelet Volume 11.6, Neutrophils (%) (Auto) 62, Lymphocytes (%) (Auto) 25 , Monocytes (%) (Auto) 11, Eosinophils (%) (Auto) 1, Basophils (%) (Auto) 1, Neutrophils # (Auto) 3.6, Lymphocytes # (Auto) 1.4, Monocytes # (Auto) 0.6, Eosinophils # (Auto) 0.1, Basophils # (Auto) 0.0, Sodium Level 137, Potassium Level 4.3, Chloride Level 103, Carbon Dioxide Level 22, Anion Gap 12, Blood Urea Nitrogen 21, Creatinine 1.14, Estimat Glomerular Filtration Rate 46, BUN/ Creatinine Ratio 18, Glucose Level 95, Calcium Level 8.9, Corrected Calcium 9.4 , Total Bilirubin 0.7, Aspartate Amino Transf (AST/SGOT) 27, Alanine Aminotransferase (ALT/SGPT) 13, Alkaline Phosphatase 72, Total Protein 5.7, Albumin 3.4, Thyroid Stimulating Hormone (TSH) 7.66 03/12/18 11:23: Glucometer 182 03/13/18 20:48: Glucometer 178 03/14/18 04:41: Glucometer 108 03/14/18 20:43: Glucometer 161 03/15/18 05:06: Glucometer 87 03/15/18 16:06: Glucometer 142 03/15/18 20:38: Glucometer 244 03/16/18 04:36: Glucometer 96 03/16/18 11:53: Glucometer 118 03/16/18 21:00: Glucometer 133 03/17/18 04:59: Glucometer 113 03/17/18 20:37: Glucometer 164 03/18/18 05:46: Glucometer 99 03/18/18 20:20: Glucometer 172 03/19/18 05:27: Glucometer 130 03/19/18 11:21: Glucometer 118 03/19/18 16:46: Glucometer 182 Discharge Home Medications: Active Scripts Active Levothyroxine Sodium 25 Mcg Tablet 25 Mcg PO DAILY@0630 Metformin HCl 500 Mg Tablet 500 Mg PO DAILY@07 Famotidine 20 Mg Tablet 20 Mg PO DAILY Citalopram HBr (Citalopram Hydrobromide) 20 Mg Tablet 20 Mg PO DAILY Tramadol HCl 50 Mg Tablet 50 Mg PO Q6H PRN Aspirin EC (Aspirin) 81 Mg Tablet.dr 81 Mg PO DAILY Lisinopril 10 Mg Tablet 10 Mg PO DAILY Metoprolol Succinate 25 Mg Tab.er.24h 50 Mg PO DAILY@1800 Lipitor (Atorvastatin Calcium) 40 Mg Tablet 40 Mg PO HS Zetia (Ezetimibe) 10 Mg Tablet 10 Mg PO HS Clopidogrel (Clopidogrel Bisulfate) 75 Mg Tablet 75 Mg PO DAILY Instructions to patient/family Please see electronic discharge instructions given to patient. Diagnosis/Problems Diagnosis/Problems (1) Cerebrovascular accident (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 Status: Chronic (2) Syncope and collapse Status: Resolved Resolution Date/Time: 03/13/18 @ 12:38 (3) CAD (coronary artery disease) Status: Chronic Qualifiers: Qualified Codes: I25.10 - Atherosclerotic heart disease of [place] coronary artery without angina pectoris (4) Pacemaker Status: Chronic (5) Renal insufficiency Status: Chronic (6) Hyperlipidemia Status: Chronic Qualifiers: Qualified Codes: E78.2 - Mixed hyperlipidemia (7) Noncompliance Status: Chronic (8) Disorientation Status: Acute (9) Aphasia Status: Acute (10) Memory deficit Status: Acute (11) Elevated troponin Status: Resolved Resolution Date/Time: 03/13/18 @ 12:38 (12) Expressive aphasia Status: Acute (13) Confusion Status: Acute Clinical Quality Measures DVT/VTE Risk/Contraindication: Risk Factor Score Per Nursin RFS Level Per Nursing on Admit: 4+=Very High ERVIN TRAN DO Mar 19, 2018 08:57
--- NOTE | 2018-03-19 08:57 | D/C HH Face to Face Order ---
D/C Face to Face Orders Instructions for Patient [facility], Patient Instructions/FollowUp: Dr Gibson in [address] Borges in 2 weeks Physician to follow Patient: Dr Tejas Gibson Discharge Diet for Home: Cardiac Diet Patient Problems: Stroke ischemic type Expressive aphasia improved right arm weakness improved DM HTN Vasovagal syncope Goals for Patient: Return to independent living Patient Data-Allergies,Ht & Wt Patient Allergies: Coded Allergies: NKANo Known Allergies (Unverified Allergy, Mild, 07/03/08) Height (Feet): 4 Height (Inches): 8.00 Weight (Pounds): 134 Weight (Ounces): 9.0 Home Health Need/Face to Face Date of Face to Face: Mar 19, 2018 Clinical Findings: Generalized weakness and fatigue, Muscle weakness, Other- list in note (memory deficit, cognitive decline) I have seen Pt [id number]: Yes Discharged To: Home Diagnosis/Conditions: Expressive aphasia improved right arm weakness improved DM HTN Vasovagal syncope Problems/Diagnosis/Condition: (1) Cerebrovascular accident (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 (2) Expressive aphasia (3) Confusion (4) Syncope and collapse (5) Disorientation (6) Memory deficit (7) Pacemaker (8) CAD (coronary artery disease) (9) Noncompliance (10) Hyperlipidemia Patient is Homebound due to: CognItive deficits, Ileana fall risk due to instabilty, Muscle weakness Homebound Status Due to the above stated illness, injury or surgical procedure (medical condition or diagnosis) and associated clinical findings, the patient is homebound because of his/her inability to leave home except with aid of a supportive device and/or person AND leaving the home requires a considerable and taxing effort or is medically contraindicated. Pt req the following assistanc: Aid of another person Home Health Nursing Orders Home Health Services Order: Nursing Services, Internal Grinder Tender-Evaluate & Treat, Physical Therapy-Evaluate & Treat, Speech Language-Evaluate & Treat Home Health Infusion Therapy Line Type: Saline Lock Site Location: Wrist Certify Stmt I certify that this patient is under my care and that I, a nurse practitioner or a physician; a nurse's assistant working with me, had a face to face encounter that - meets the physician face to face encounter requirements with this patient as dated. ERVIN TRAN DO Mar 19, 2018 08:57
[2018-03-19] MEDS: lisINopril 10 MG (PRINIVIL) TABLET PO SCH (09:19)
[2018-03-19] MEDS: FAMOTIDINE 20 MG (PEPCID) TABLET PO SCH (09:19)
[2018-03-19] MEDS: CLOPIDOGREL 75 MG (PLAVIX) TABLET PO SCH (09:19)
[2018-03-19] MEDS: ASPIRIN E.C. 81 MG (ECOTRIN) TAB PO SCH (09:20)
--- NOTE | 2018-03-19 09:47 | Physical Therapy Daily Note ---
PT Daily Note-Current Subjective Pt sitting in recliner upon arrival. Pt agrees to PT. Pt is supposed to discharge today but SW have not been able to reach pt's ride for confirmation. Pain Location: No Pain Reported Mental Status Patient Orientation: Person, Place Transfers Therapy Code Descriptions/Definitions Functional [place] Measure: 0=Not Assessed/NA 4=Minimal Assistance 1=Total Assistance 5=Supervision or Setup 2=Maximal Assistance 6=Modified [place] 3=Moderate Assistance 7=Complete [place] Therapy Quality Codes: 6 Independent with activity with or without an assistive device 5 Patient requires set up or clean up by helper. Patient completes activity by themselves 4 Supervision or touching assist (CGA). [place] provide cues , steadying assist 3 The helper provides less than half the effort to complete the activity 2 The helper provides more than half the effort to complete the activity 1 Dependent. The helper does all the effort to complete an activity 7 Patient refused to complete or attempt activity 9 The patient did not perform the activity before the current illness or injury 88 Not attempted due to Medical conditions or safety concerns Scootin Sit to/from Stand: 7 Sit to Stand (QC): 7 Weight Bearing Right Lower Extremity: Right Full Weight Bearing Left Lower Extremity: Left Full Weight Bearing Gait Training Does the Patient Walk?: Yes Distance (FIM): 3=150 ft Distance: 350' Walk 10 feet (QC): 7 Walk 50 ft with 2 Turns(QC): 7 Walk 150 ft (QC): 7 Gait Level of Assist: 7 Gait Persons Needed: 1 Gait Assistive Device: None Pt needs VC for direction, still demonstrating some cognitive deficits but no physical ones. Wheelchair Training Does the Pt Use a Wheelchair?: No Exercises Standing: Heel/toe raises, 3 way Ex=Flex, Abd, Ext, Marching, Mini squats Standing Reps: 20 NuStep Minutes: 15 NuStep Workload: 5 Treatments AGRICULTURAL SERVICE WORKER discussed trying to reach pt's ride for anticipated discharge today but will see pt as precaution. Pt transfers from recliner to standing w/o AD at Independent. Pt ambulates in hallway w/o AD also Independently. Pt uses NuStep for 15m at WL 5 followed by short rest then Standing Ex at //bars with rest breaks as needed. Pt again ambulates in hallway to work on activity tolerance and strengthening. Pt returns to room to rest in recliner while visiting with SW. Pt ambulates to table in Commons Area to work with ST. Pt has all needs met at end of PT. Assessment Current Status: Good Progress Pt continues to have some cognitive deficits but no physical ones at this time that affect tx. PT Short Term Goals Short Term Goals Time Frame: Mar 19, 2018 Transfers (B,C,W/C) (FIM): 6 Gait (FIM): 5 Gait Distance Comment: 300' Gait Level of Assist: 5 PT Retirement Goals Retirement Goals PT Steel Plate Printer Goals Time Frame: Apr 02, 2018 Transfers (B,C,W/C) (FIM): 7 Sit to Lying (QC): 6 Lying-Sitting on Side/Bed(QC): 6 Sit to Stand (QC): 6 Rollin Roll Left to Right (QC): 6 Chair/Ewd-jj-Llrdp Xfer(QC): 6 Car Transfer (QC): 6 Gait (FIM): 7 Distance: 500' Walk 10 feet (QC): 6 Walk 10ft-Uneven Surface(QC): 6 Walk 50ft with 2 Turns (QC): 6 Walk 150 ft (QC): 6 Gait Level of Assist: 7 Gait Assistive Device: None Stairs (FIM): 5 # of Steps: 12 1 Step (curb) (QC): 4 4 Steps (QC): 4 12 Steps (QC): 4 Stairs Level Of Assist: 5 PT Plan Problem List Problem List: Activity Tolerance Treatment/Plan Treatment Plan: Continue Plan of Care Treatment Plan: Bed Mobility, Education, Functional Activity Sergey, Functional Strength, Group Therapy, Gait, Safety, Therapeutic Exercise, Transfers Treatment Duration: Apr 02, 2018 Frequency: At least 5 of 7 days/Wk (IRF) Estimated Hrs Per Day: 1.5 hours per day Patient and/or Family Agrees t: Yes Safety Risks/Education Patient Education: Gait Training, Transfer Techniques, Correct Positioning, Safety Issues Teaching Recipient: Patient Teaching Methods: Discussion Response to Teaching: Reinforcement Needed Time/GCodes Time In: 815 Time Out: 930 Total Billed Treatment Time: 75 Total Billed Treatment 1, GT (20m), EX x2 (30m) & FA x2 (25m) G Codes Necessary: GALILEA Noble AGRICULTURAL SERVICE WORKER Mar 19, 2018 09:47
--- NOTE | 2018-03-19 10:46 | NUR ---
Discharge plan Left a message for Criselda regarding discharge plan that is set for this date. Have been informed that Gautam's phone is not working and that Criselda should be contacted. Awaiting return phone call.
--- NOTE | 2018-03-19 12:51 | NUR ---
Discharge plan Received a call from Gautam and Criselda. Gautam reports that the patient resides with him and his aunt. Gautam states that things were not "going well" when Adeline was at home and would like her to go to a longterm at discharge. Gautam reports that he is unable to care for Adeline because he has a "disorder" and that his aunt is not able to assist due to "problems with her legs." He would like a referral sent to [facility].
--- NOTE | 2018-03-19 12:57 | PM&R Progress Note ---
Subjective This was a face to face visit with the patient. Date Seen by Provider: Mar 19, 2018 Time Seen by Provider: 08:00 Subjective/Events-last exam Patient was seen in her room. Patient was intending to go home today and all arrangements were made Sent medications to [facility] Overall patient felt really good about getting home I had already started the discharge process when her family notified us that they could not assist the patient enough to safely maintain her living independently. Patient will go to [facility] tomorrow on skilled therapy since living independently is no longer an option and will be a permanent placement Check meds and labs Metformin is tolerated Blood pressure is improved and metoprolol was increased to 50 mg from 25 mg from cardiology. Review of Systems General: Fatigue Neurological: Confusion Objective Physician Exam Last Set of Vital Signs Vital Signs Date Time Temp Pulse Resp B/P (MAP) Pulse Ox O2 Delivery O2 Flow Rate FiO2 03/19/18 05:10 97.2 66 18 154/81 (105) 96 Room Air Capillary Refill : I&O Intake and Output 03/18/18 23:59 Intake Total 990 ml Balance 990 ml Intake Oral 990 ml # Voids 6 General: Alert, Cooperative, Other (O x 1-2) HEENT: Atraumatic, PERRLA Neck: Supple, No Thyromegaly Lungs: Clear to Auscultation, Normal Air Movement Heart: Regular Rate, Normal S1, Normal S2 Abdomen: Normal Bowel Sounds Extremities: No Clubbing, No Cyanosis Skin: No Rashes Neuro: Normal Speech, Cranial Nerves 3-12 NL, Reflexes 2+ Psych/Mental Status: Other (Flat affect) Results Lab Data Laboratory Tests 03/16/18 21:00: Glucometer 133H 03/17/18 04:59: Glucometer 113H 03/17/18 20:37: Glucometer 164H 03/18/18 05:46: Glucometer 99 03/18/18 20:20: Glucometer 172H 03/19/18 05:27: Glucometer 130H 03/19/18 11:21: Glucometer 118H Current Funtional Status Arrangements will be made to go to [facility] tomorrow with skilled care She has been accepted to [facility] in [place] Reviewed all meds in preparation for discharge Progress Toward Rehab Goals Patient is optimized on therapies and she is moving about independently has no weakness that was present on admission from stroke but cognitive decline is a safety issue living independently and alone without 24/7 monitoring and direct observed therapy with medications since noncompliance with medications placed her at risk for experiencing the stroke she had for hypertensive urgency. Assessment/Plan Assessment and Plan (1) Cerebrovascular accident (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 Status: Chronic (2) Syncope and collapse Status: Resolved (3) CAD (coronary artery disease) Qualifiers: Qualified Codes: I25.10 - Atherosclerotic heart disease of [place] coronary artery without angina pectoris Status: Chronic (4) Pacemaker Status: Chronic (5) Renal insufficiency Status: Chronic (6) Hyperlipidemia Qualifiers: Qualified Codes: E78.2 - Mixed hyperlipidemia Status: Chronic (7) Noncompliance Status: Chronic (8) Disorientation Status: Acute (9) Aphasia Status: Acute (10) Memory deficit Status: Acute (11) Elevated troponin Status: Resolved (12) Expressive aphasia Status: Acute (13) Confusion Status: Acute Co-Morbidities that are continuing to impact the rehab process: (include details ) ERVIN TRAN DO Mar 19, 2018 12:57
--- NOTE | 2018-03-19 13:59 | Speech Therapy Daily Note ---
Speech Daily Progress Note Subjective Date Seen by Provider: Mar 19, 2018 Time Seen by Provider: 00:30 Patient was very happy to be returning home. Objective Patient completed sequencing activities at 90% with minimal cues. Assessment Assessment Current Status: Good Progress Treatment Plan Continue Plan of Care Communication Comprehension: 3 Expression: 3 Social Cognition Social Interaction: 4 Problem Solvin Memory: 2 Speech Short Term Goals Short Term Goals Short Term Goals 1) Patient will complete temporal exercises related to herself at 80% or greater. 2) Patient will complete memory tasks with 80% or greater. 3) Patient will complete problem solving tasks related to daily needs at 80% or greater. Speech Manager Creative Goals Manager Creative Goals Patient will improve memory, problem solving and orientation skills in order to return home safely with increased independence. Speech-Plan Patient/Family Goals Patient/Family Goals: Patient plans to return home with family post rehab. Treatment Plan Speech Therapy Treatment Plan: Continue Plan of Care Patient has made very good progress as a result of skilled ST services. Treatment Duration: Mar 19, 2018 Frequency: 5 times per week Estimated Hrs Per Day: .5 hour per day Rehab Potential: Good Barriers to Learning: Patient requires help with initiating task and/or extra processing time at times. Pt/Family Agrees to Plan: Yes Safety Risks/Education Teaching Recipient: Patient Teaching Methods: Discussion Response to Teaching: Verbalize Understanding Education Topics Provided: Safety scenarios within her home. Time Speech Therapy Time In: 09:30 Speech Therapy Time Out: 10:00 Total Billed Time: 30 Billed Treatment Time 1CHIID BETHANIA ST Mar 19, 2018 13:59
--- NOTE | 2018-03-19 14:21 | NUR ---
Discharge plan Patient has been accepted to [facility] on 03/20/18 at 1000. Genesis Gordillo from [facility] has spoken with patient's son and they are to meet tomorrow. Care assessment to be completed by [facility] social and political studies professor. Orders for PT, OT and DIRECTOR AUDIENCE MARKETING will be requested. Nursing and Dr. Mccullough notified.
[2018-03-19 17:55] VITALS: BP 158/77
[2018-03-19] MEDS: eZETimibe 10 MG (ZETIA) TABLET PO SCH (21:22)
[2018-03-19] MEDS: ENOXAPARIN 40 MG/0.4 ML (LOVENOX) SYR SC SCH (21:22)
[2018-03-19] MEDS: MELATONIN 3 MG TABLET PO PRN (21:22)
[2018-03-19] MEDS: ATORVASTATIN 40 MG (LIPITOR) TABLET PO SCH (21:22)
[2018-03-20 05:18] VITALS: BP 124/74
[2018-03-20] MEDS: inSUlin ASPART (NovoLOG) 1 UNIT/0.01 ML (CHARGE PER UNIT) SC SCH ×2 (06:07→12:49)
[2018-03-20] MEDS: metFORMIN 500 MG (GLUCOPHAGE) TAB PO SCH (06:07)
[2018-03-20] MEDS: LEVOTHYROXINE 25 MCG (LEVOTHROID) TAB PO SCH (06:07)
--- NOTE | 2018-03-20 08:24 | Discharge Inst-Skilled Nursing ---
Discharge Inst-Skilled NF Patient Instructions Patient Problems: CVA Cognitive deficit DM CAD Pacemaker Goal: Return to independent living Consult/Follow Up/Orders Follow Up Appt.: Dr Gibson in 2 weeks Skilled NF Admit to: [facility] Certification ([facility]) I certify that SNF services are required to be given on an inpatient basis because of the above named patient's need for snf care on a continuing basis for the conditions(s) for which he/she was receiving inpatient hospital services prior to his/her transfer to the SNF. Shelter Facility Order: Nursing Services, [place] Can Tender-Evaluate & Treat, Physical Therapy-Evaluate & Treat, Speech Language-Evaluate & Treat Discharge Diet: ADA Diet Daily Activity as Tolerated: Yes New & Resume Previous Orders La Nena Mccullough Mar 20, 2018 08:23 LA NENA MCCULLOUGH DO Mar 20, 2018 08:23
[2018-03-20] MEDS: CLOPIDOGREL 75 MG (PLAVIX) TABLET PO SCH (08:40)
[2018-03-20] MEDS: ASPIRIN E.C. 81 MG (ECOTRIN) TAB PO SCH (08:40)
[2018-03-20] MEDS: lisINopril 10 MG (PRINIVIL) TABLET PO SCH (08:41)
[2018-03-20] MEDS: FAMOTIDINE 20 MG (PEPCID) TABLET PO SCH (08:41)
--- NOTE | 2018-03-20 08:58 | Discharge Summary-Hospitalist ---
Diagnosis/Chief Complaint Date of Admission Mar 11, 2018 at 17:00 Date of Discharge Discharge Date: Mar 19, 2018 Discharge Diagnosis (1) Cerebrovascular accident (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 Status: Chronic (2) Syncope and collapse Status: Resolved (3) CAD (coronary artery disease) Status: Chronic (4) Pacemaker Status: Chronic (5) Renal insufficiency Status: Chronic (6) Hyperlipidemia Status: Chronic (7) Noncompliance Status: Chronic (8) Disorientation Status: Acute (9) Aphasia Status: Acute (10) Memory deficit Status: Acute (11) Elevated troponin Status: Resolved (12) Expressive aphasia Status: Acute (13) Confusion Status: Acute Discharge Summary Discharge Physical Exam Allergies: Coded Allergies: NKANo Known Allergies (Unverified Allergy, Mild, 07/03/08) Vitals & I&Os Vital Signs Date Time Temp Pulse Resp B/P (MAP) Pulse Ox O2 Delivery O2 Flow Rate FiO2 03/20/18 05:18 97.2 60 16 124/74 (91) 99 Room Air General Appearance: No Apparent Distress, WD/WN, Chronically ill Respiratory: Chest Non Tender, Lungs Clear, Normal Breath Sounds, No Accessory Muscle Use, No Respiratory Distress Cardiovascular: Regular Rate, Rhythm, No Edema, No Gallop, No JVD, No Murmur, Normal Peripheral Pulses 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, Oriented x3, No Motor/Sensory Deficits, Normal Mood/Affect Hospital Course Hospital course: patient had a fairly uncomplicated inpatient rehabilitation course when she was admitted from [facility] for stroke and significant residual including cognitive deficits along with expressive aphasia and right upper extremity weakness. Patient did have a vasovagal or orthostasis episode that required rapid response evaluation in ICU overnight with cardiology and pulmonology consultation but medications were adjusted and minimized and patient did not have a repeat he did event of that. Blood sugars returned back to normal with the use of sliding scale insulin regimen and that was transitioned of metformin once daily. Cardiology adjusted medications and those were tolerated well. Right upper extremity weakness resolved and she was able to ambulate without assistive devices. She should had a significant improvement in all of her deficits that cognition would require cues and family support was in need of placement at a nursing facility at least temporarily until they were able to support her in providing almost 24/7 care. Overall she had optimized with all therapies and she was deemed stable for discharge to [facility] in [place] on skilled care under Dr. Tejas strauss. Labs (last 24 hrs) Laboratory Tests 03/19/18 16:46: Glucometer 182H 03/19/18 21:06: Glucometer 117H 03/20/18 04:58: Glucometer 85 Patient resulted labs reviewed. Pending Labs Laboratory Tests 03/20/18 04:58: Glucometer 85 Discussion & Recommendations Discharge Planning: >30 minutes discharge planning Discharge Home Medications: Active Scripts Active Levothyroxine Sodium 25 Mcg Tablet 25 Mcg PO DAILY@0630 Metformin HCl 500 Mg Tablet 500 Mg PO DAILY@07 Famotidine 20 Mg Tablet 20 Mg PO DAILY Citalopram HBr (Citalopram Hydrobromide) 20 Mg Tablet 20 Mg PO DAILY Tramadol HCl 50 Mg Tablet 50 Mg PO Q6H PRN Aspirin EC (Aspirin) 81 Mg Tablet.dr 81 Mg PO DAILY Lisinopril 10 Mg Tablet 10 Mg PO DAILY Metoprolol Succinate 25 Mg Tab.er.24h 50 Mg PO DAILY@1800 Lipitor (Atorvastatin Calcium) 40 Mg Tablet 40 Mg PO HS Zetia (Ezetimibe) 10 Mg Tablet 10 Mg PO HS Clopidogrel (Clopidogrel Bisulfate) 75 Mg Tablet 75 Mg PO DAILY Instructions to patient/family Please see electronic discharge instructions given to patient. Clinical Quality Measures DVT/VTE Risk/Contraindication: Risk Factor Score Per Nursin RFS Level Per Nursing on Admit: 4+=Very High Problem Qualifiers (1) CAD (coronary artery disease): Coronary Disease-Associated Artery/Lesion type: [place] artery [place] vs. transplanted heart: [place] heart Associated angina: without angina Qualified Codes: I25.10 - Atherosclerotic heart disease of [place] coronary artery without angina pectoris (2) Hyperlipidemia: Hyperlipidemia type: mixed hyperlipidemia Qualified Codes: E78.2 - Mixed hyperlipidemia ERVIN TRAN DO Mar 20, 2018 08:57
--- NOTE | 2018-03-20 09:11 | NUR ---
CM/SS completed the CARE Assessment with the patient. CARE assessment sent to [facility], and copy in patient file.
[2018-03-20 10:00] VITALS: BP 124/74
--- NOTE | 2018-03-20 10:12 | Therapy Team Discharge Summary ---
Therapy Discharge Summary Discharge Recommendations Date of Discharge 03/20/2018 Therapy D/C Recommendations: Occupational Therapy Home Care, Scheduled Assistance Physical Therapy This patient was admitted to ARU post acute hospital stay due to a CVA. Prior to her CVA, she was living alone with family support and was indep with all mobility. Upon admission to this unit, she required SBA with transfers and gait and needed assist on stairs. Treatment has focused on functional strength and mobility, safety, balance and increasing activity tolerance. She has met goals and is indep with mobility, with safety concerns at this time. She is to discharge to a correction as family does not feel they can manage her at home. She may benefit from continued therapy services to focus on high level balance training as well as safety education / training. DC from ARU at this time. Occupational Therapy Decreased Activ Tolerance, Decreased Safety Aware, Impaired Cognition, Impaired Coordination, Impaired Funct Balance, Impaired I ADL's, Impaired Self-Care Skills PT Half-Way Goals Director Medical Science Goals PT Half-Way Goals Time Frame: Apr 02, 2018 Transfers (B,C,W/C) (FIM): 7 (7) Roll Left to Right (QC): 6 (6) Sit to Lying (QC): 6 (6) Lying-Sitting on Side/Bed(QC): 6 (6) Sit to Stand (QC): 6 (6) Chair/Mvc-oq-Juyok Xfer(QC): 6 Car Transfer (QC): 6 (6) Gait (FIM): 7 (7) Distance: 500' Walk 10 feet (QC): 6 (6) Walk 10ft-Uneven Surface(QC): 6 (6) Walk 50ft with 2 Turns (QC): 6 (6) Walk 150 ft (QC): 6 (6) Gait Level of Assist: 7 (7) Gait Assistive Device: None Stairs (FIM): 5 (7) # of Steps: 12 1 Step (curb) (QC): 4 (6) 4 Steps (QC): 4 (6) 12 Steps (QC): 4 (6) Stairs Level Of Assist: 5 All goals met or exceeded OT Half-Way Goals Director Medical Science Goals Eating (FIM): 6 Eating (QC): 6 Oral Hygiene (QC): 6 Grooming(FIM): 6 Bathing(FIM): 5 Shower/Bathe Self (QC): 5 Upper Body Dressing(FIM): 6 Upper Body Dressing (QC): 6 Lower Body Dressing(FIM): 6 Lower Body Dressing (QC): 6 On/Off Footwear (QC): 6 Toileting(FIM): 6 Toileting Hygiene (QC): 6 Transfers (B,C,W/C) (FIM): 6 Toilet/Commode Transfer(FIM): 6 Toilet/Commode Transfer (QC): 6 Shower Transfer(FIM): 5 1=Demonstrate adherence to instructed precautions during ADL tasks. 2=Patient will verbalize/demonstrate understanding of assistive devices/ modifications for ADL. 3=Patient will improve strength/tolerance for activity to enable patient to perform ADL's. Speech Half-Way Goals Director Medical Science Goals Patient will improve memory, problem solving and orientation skills in order to return home safely with increased independence. JOHN ALBARADO PT Mar 20, 2018 10:11
--- NOTE | 2018-03-20 10:26 | Cardiology Progress Note ---
Subjective Date Seen by Provider: Mar 20, 2018 Time Seen by Provider: 10:25 Subjective/Events-last exam patient is laying down in bed, feeling better, no new complaint Review of Systems General: No Chills, No Night Sweats, No Fatigue, No Malaise, No Appetite, No Other HEENT: No Head Aches, No Visual Changes, No Eye Pain, No Ear Pain, No Dysphasia , No Sinus Congestion, No Post Nasal Drip, No Sore Throat, No Other Pulmonary: No Dyspnea, No Cough, No Pleuritic Chest Pain, No Other Cardiovascular: No: Chest Pain, Palpitations, Orthopnea, Paroxysmal Noc. Dyspnea, Edema, Lt Headedness, Other Objective-Cardiology Exam Last Set of Vital Signs Vital Signs 03/20/18 05:18 Temp 97.2 Pulse 60 Resp 16 B/P (MAP) 124/74 (91) Pulse Ox 99 O2 Delivery Room Air Capillary Refill : I&O Intake and Output 03/20/18 00:00 Intake Total 790 ml Balance 790 ml Intake Oral 790 ml # Voids 6 General: Alert, Cooperative, Other (O x 1-2) HEENT: Atraumatic, PERRLA Neck: Supple, No Thyromegaly Lungs: Clear to Auscultation, Normal Air Movement Heart: Regular Rate, Normal S1, Normal S2 Abdomen: Normal Bowel Sounds Extremities: No Clubbing, No Cyanosis Skin: No Rashes Neuro: Normal Speech, Cranial Nerves 3-12 NL, Reflexes 2+ Psych/Mental Status: Other (Flat affect) Results Lab Laboratory Tests Test 03/19/18 11:21 03/19/18 16:46 03/19/18 21:06 03/20/18 04:58 Range/Units Glucometer 118 H 182 H 117 H 85 70-110 MG/DL A/P-Cardiology Admission Diagnosis CVA Hypertension Hyperlipidemia Syncope Assessment/Plan Syncope, probably hypotensive episode, vasovagal episode, better at this time, continue to monitor Acute CVA with left MCA distribution thrombus, received TPA on March 08, 2018 , noted to have small intracranial bleed on March 10, 2018. Coronary artery disease, non-ST elevation myocardial infarction had elevation in troponin level of 1.5, had ST elevation in V2 with QS in the anterior leads, no reciprocal changes. Conservative management in [facility]. Continue to monitor, history of CABG in the past. Congestive heart failure, chronic compensated left ventricular systolic dysfunction, probably ischemic in nature with ejection fraction reported to be between 35 and 40 percent, continue to monitor at this time Hypertension, status post hypotensive episode, I will increase Toprol and evaluate tolerance and response Hyperlipidemia, maintained on Lipitor, continue to monitor. History of permanent pacemaker, atrial paced rhythm on EKG. Hypothyroidism, managed by primary care physician Okay for discharge from cardiology standpoint Clinical Quality Measures DVT/VTE Risk/Contraindication: Risk Factor Score Per Nursin RFS Level Per Nursing on Admit: 4+=Very High JAC MABRY MD Mar 20, 2018 10:26
--- NOTE | 2018-03-20 15:31 | Therapy Team Discharge Summary ---
Therapy Discharge Summary Discharge Recommendations Date of Discharge Therapy D/C Recommendations: Occupational Therapy Home Care, Scheduled Assistance Occupational Therapy Decreased Activ Tolerance, Decreased Safety Aware, Impaired Cognition, Impaired Coordination, Impaired Funct Balance, Impaired I ADL's, Impaired Self-Care Skills Speech-Language Pathology Patient was admitted to the ARU secondary to a CVA. At the time of admit patient exhibited decreased memory and problem solving skills. These deficits were addressed with skilled ST services. Patient has made good progress with deficits as a result of skilled ST. Patient is discharging to her home with family today. Patient is discharged from skilled ST this date. PT Skilled Nursing Goals Oil Burner Technician Goals PT Oil Burner Technician Goals Time Frame: Apr 02, 2018 Transfers (B,C,W/C) (FIM): 7 Roll Left to Right (QC): 6 Sit to Lying (QC): 6 Lying-Sitting on Side/Bed(QC): 6 Sit to Stand (QC): 6 Chair/Ifo-oc-[place] Xfer(QC): 6 Car Transfer (QC): 6 Gait (FIM): 7 Distance: 500' Walk 10 feet (QC): 6 Walk 10ft-Uneven Surface(QC): 6 Walk 50ft with 2 Turns (QC): 6 Walk 150 ft (QC): 6 Gait Level of Assist: 7 Gait Assistive Device: None Stairs (FIM): 5 # of Steps: 12 1 Step (curb) (QC): 4 4 Steps (QC): 4 12 Steps (QC): 4 Stairs Level Of Assist: 5 OT Oil Burner Technician Goals Skilled Nursing Goals Eating (FIM): 6 Eating (QC): 6 Oral Hygiene (QC): 6 Grooming(FIM): 6 Bathing(FIM): 5 Shower/Bathe Self (QC): 5 Upper Body Dressing(FIM): 6 Upper Body Dressing (QC): 6 Lower Body Dressing(FIM): 6 Lower Body Dressing (QC): 6 On/Off Footwear (QC): 6 Toileting(FIM): 6 Toileting Hygiene (QC): 6 Transfers (B,C,W/C) (FIM): 6 Toilet/Commode Transfer(FIM): 6 Toilet/Commode Transfer (QC): 6 Shower Transfer(FIM): 5 1=Demonstrate adherence to instructed precautions during ADL tasks. 2=Patient will verbalize/demonstrate understanding of assistive devices/ modifications for ADL. 3=Patient will improve strength/tolerance for activity to enable patient to perform ADL's. Speech Oil Burner Technician Goals Skilled Nursing Goals Patient will improve memory, problem solving and orientation skills in order to return home safely with increased independence. Met VERITO MARTIN Mar 20, 2018 15:31
--- NOTE | 2018-03-24 08:20 | Therapy Team Discharge Summary ---
Therapy Discharge Summary Discharge Recommendations Date of Discharge Mar 20, 2018 at 10:00 Therapy D/C Recommendations: 24 hr Supervision, Scheduled Assistance Occupational Therapy Pt. was seen by occupational therapy to increase overall strength and independence with daily tasks. Pt. met all physical and functional goals. Pt. discharged to skilled unit however due to not having enough support at home. Pt. at discharge was able to shower, dress, and groom self with Mod I. Due to some aphasic and cognitive difficulties, pt. will continue to have supervision in the care home setting. Decreased Safety Aware, Impaired Cognition, Impaired I ADL's PT Neighborhood Planner Goals Neighborhood Planner Goals PT Skilled Nursing Goals Time Frame: Apr 02, 2018 Transfers (B,C,W/C) (FIM): 7 Roll Left to Right (QC): 6 Sit to Lying (QC): 6 Lying-Sitting on Side/Bed(QC): 6 Sit to Stand (QC): 6 Chair/Kbm-nw-Hwfrn Xfer(QC): 6 Car Transfer (QC): 6 Gait (FIM): 7 Distance: 500' Walk 10 feet (QC): 6 Walk 10ft-Uneven Surface(QC): 6 Walk 50ft with 2 Turns (QC): 6 Walk 150 ft (QC): 6 Gait Level of Assist: 7 Gait Assistive Device: None Stairs (FIM): 5 # of Steps: 12 1 Step (curb) (QC): 4 4 Steps (QC): 4 12 Steps (QC): 4 Stairs Level Of Assist: 5 OT Skilled Nursing Goals Neighborhood Planner Goals Eating (FIM): 6 (met) Eating (QC): 6 (met) Oral Hygiene (QC): 6 (met) Grooming(FIM): 6 (Met) Bathing(FIM): 5 (met) Shower/Bathe Self (QC): 5 (met) Upper Body Dressing(FIM): 6 (met) Upper Body Dressing (QC): 6 (met) Lower Body Dressing(FIM): 6 (met) Lower Body Dressing (QC): 6 (met) On/Off Footwear (QC): 6 (met) Toileting(FIM): 6 (met) Toileting Hygiene (QC): 6 (met) Transfers (B,C,W/C) (FIM): 6 (met) Toilet/Commode Transfer(FIM): 6 (met) Toilet/Commode Transfer (QC): 6 (met) Shower Transfer(FIM): 5 (met) 1=Demonstrate adherence to instructed precautions during ADL tasks. 2=Patient will verbalize/demonstrate understanding of assistive devices/ modifications for ADL. 3=Patient will improve strength/tolerance for activity to enable patient to perform ADL's. Speech Skilled Nursing Goals Neighborhood Planner Goals Patient will improve memory, problem solving and orientation skills in order to return home safely with increased independence. Met CLAUDIA THOMPSON OT Mar 24, 2018 08:20
== END 2018-03-20 10:00 | DRG 56 ==
PROVIDERS: ADMIT Internal Medicine; ATTEND Internal Medicine
DX: I69.351 Hemiplegia and hemiparesis following cerebral infarction affecting right dominant side (principal); I69.320 Aphasia following cerebral infarction; I69.311 Memory deficit following cerebral infarction; I69.318 Other symptoms and signs involving cognitive functions following cerebral infarction; R41.0 Disorientation, unspecified; I21.4 Non-ST elevation (NSTEMI) myocardial infarction; I13.0 Hypertensive heart and chronic kidney disease with heart failure and stage 1 through stage 4 chronic kidney disease, or unspecified chronic kidney disease; I50.22 Chronic systolic (congestive) heart failure; N18.9 Chronic kidney disease, unspecified; I25.5 Ischemic cardiomyopathy; E86.1 Hypovolemia; R55 Syncope and collapse; I25.10 Atherosclerotic heart disease of native coronary artery without angina pectoris; E11.65 Type 2 diabetes mellitus with hyperglycemia; E78.2 Mixed hyperlipidemia; K59.09 Other constipation; M19.90 Unspecified osteoarthritis, unspecified site; E03.9 Hypothyroidism, unspecified; F32.9 Major depressive disorder, single episode, unspecified; Z91.19 Patient's noncompliance with other medical treatment and regimen; Z79.84 Long term (current) use of oral hypoglycemic drugs; Z95.1 Presence of aortocoronary bypass graft; Z95.0 Presence of cardiac pacemaker
CPT/HCPCS: 36415; 80053; 82962; 84443; 85025; 90471

== ENCOUNTER 2018-03-12 11:30 | Observation (INO) | payer MEDICARE ==
[2018-03-12] VITALS (14 sets, daily range): BP systolic 107–145; BP diastolic 61–102
[~2018-03-12] VITALS: Ht 152.4 cm; Wt 67.6 kg
[~2018-03-12 11:30] MED LIST changes: +ASPI-983 PO; +ATOR40TA70 PO; +CITA20TA12 PO; +CLOP75TA28 PO; +EZET10TA27 PO; +FAMO-144 PO; +FAMO20TA3 PO; +LISI-556 PO
[2018-03-12] MEDS ORDERED: NS IV 1000 ML 1,000 ML IV SCH (11:43)
[2018-03-12] MEDS ORDERED: ENOXAPARIN 40 MG/0.4 ML (LOVENOX) SYR SC SCH (11:45)
--- OUTSIDE RECORDS SUMMARY | 2018-03-12 11:54 | XMS REPORT | Encounter Summary ---
Author Author [facility] Organization [facility] Address Unknown Phone Unavailable Care Team Providers Care Appliquer Name Role Phone No Pcp, Na PCP Unavailable Reason for Visit * Reason Comments Test/procedure Enrollment on Cardio Net Encounter Details Care Team Description Date Type Department Nicanor Moody Test/procedure (Enrollment on Cardio Net ) 03/12/2018 Documentation Cardiovascular Medicine [facility] [place] [address] Social History Date Tobacco Use Types Packs/Day Years Used Never Assessed Sex Assigned at Date Recorded Not on file Industry Job Start Date Occupation Not on file Not on file Not on file Travel End Travel History Travel Start No recent travel history available. as of this encounter Functional Status Date of Assessment Functional Status Response 03/10/2018 Does the patient have a hearing impairment: No as of this encounter Progress Notes * Nicanor Moody - 03/12/2018 10:23 AM BUS OPERATOR Brand: Cardio Net Type: Looping Length: [address]: Serina Diagnosis: AF Was insurance info faxed with enrollment: Enrollment online We are going to ask for overnight shipment. OPERATOR in this encounter Plan of Treatment Not on fileas of this encounter Visit Diagnoses Not on filein this encounter
--- OUTSIDE RECORDS SUMMARY | 2018-03-12 11:54 | XMS REPORT | Clinical Summary ---
Author Author [facility] Organization [facility] Address Unknown Phone Unavailable Care Team Providers Care Sewage Plant Attendant Name Role Phone No Pcp, Na PCP Unavailable Source Comments Some departments are not documenting in the electronic medical record. 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/09/2018 Hospital - Encounter 03/11/2018 from Last [...] Taken Vital Sign Reading 03/11/2018 2:00 PM PRETZEL TWISTING MACHINE OPERATOR Blood Pressure 127/80 03/11/2018 2:00 PM PRETZEL TWISTING MACHINE OPERATOR Pulse 70 03/11/2018 2:00 PM PRETZEL TWISTING MACHINE OPERATOR Temperature 36.9 C (98.4 F) - Respiratory Rate - 03/11/2018 2:00 PM PRETZEL TWISTING MACHINE OPERATOR Oxygen Saturation 97% - Inhaled Oxygen - Concentration 03/10/2018 4:00 AM PRETZEL TWISTING MACHINE OPERATOR Weight 58.7 kg (129 lb 6.6 oz) 03/09/2018 11:31 AM PRETZEL TWISTING MACHINE OPERATOR Height 147.3 cm (4' 10") 03/10/2018 4:00 AM PRETZEL TWISTING MACHINE OPERATOR Body Mass Index 27.05 Plan of Treatment Health Maintenance Due Date Last Done Comments PHYSICAL (COMPREHENSIVE) 01/17/1947 EXAM DTAP/TDAP VACCINES (1 - 1959 Tdap) SHINGLES RECOMBINANT 1991 VACCINE (1 of 2) OSTEOPOROSIS 2006 SCREENING/MONITORING PNEUMONIA (PCV13/PPSV23) 2006 VACCINES (1 of 2 - PCV13) INFLUENZA VACCINE 10/08/2017 Procedures Comments Procedure Name Priority Date/Time Associated Diagnosis MAGNESIUM Routine 03/11/2018 5:10 AM PRETZEL TWISTING MACHINE OPERATOR BASIC METABOLIC PANEL Routine 03/11/2018 5:10 AM PRETZEL TWISTING MACHINE OPERATOR CBC Routine 03/11/2018 5:10 AM PRETZEL TWISTING MACHINE OPERATOR PHOSPHORUS Routine 03/10/2018 4:10 AM PRETZEL TWISTING MACHINE OPERATOR MAGNESIUM Routine 03/10/2018 4:10 AM PRETZEL TWISTING MACHINE OPERATOR BASIC METABOLIC PANEL Routine 03/10/2018 4:10 AM PRETZEL TWISTING MACHINE OPERATOR CBC Routine 03/10/2018 4:10 AM PRETZEL TWISTING MACHINE OPERATOR CT HEAD WO CONTRAST Routine 03/10/2018 3:53 AM PRETZEL TWISTING MACHINE OPERATOR DEVICE EVALUATION - PPM STAT 03/09/2018 2:50 PM PRETZEL TWISTING MACHINE OPERATOR ABDOMEN AP ONLY Routine 03/09/2018 1:21 PM PRETZEL TWISTING MACHINE OPERATOR URINALYSIS MICROSCOPIC Routine 03/09/2018 REFLEX TO CULTURE 11:51 AM PRETZEL TWISTING MACHINE OPERATOR URINALYSIS DIPSTICK Routine 03/09/2018 REFLEX TO CULTURE 11:51 AM PRETZEL TWISTING MACHINE OPERATOR 2-D + DOPPLER Routine 03/09/2018 ECHOCARDIOGRAM 11:31 AM PRETZEL TWISTING MACHINE OPERATOR TROPONIN-I STAT 03/09/2018 10:40 AM PRETZEL TWISTING MACHINE OPERATOR CHEST SINGLE VIEW STAT 03/09/2018 8:29 AM PRETZEL TWISTING MACHINE OPERATOR BNP (B-TYPE NATRIURETIC Routine 03/09/2018 PEPTI) 8:06 AM PRETZEL TWISTING MACHINE OPERATOR TROPONIN-I STAT 03/09/2018 8:06 AM PRETZEL TWISTING MACHINE OPERATOR CONSULT IV THERAPY TEAM STAT 03/09/2018 7:38 AM PRETZEL TWISTING MACHINE OPERATOR PHOSPHORUS Routine 03/09/2018 7:00 AM PRETZEL TWISTING MACHINE OPERATOR MAGNESIUM Routine 03/09/2018 7:00 AM PRETZEL TWISTING MACHINE OPERATOR TROPONIN-I STAT 03/09/2018 7:00 AM PRETZEL TWISTING MACHINE OPERATOR BASIC METABOLIC PANEL Routine 03/09/2018 7:00 AM PRETZEL TWISTING MACHINE OPERATOR PTT (APTT) Routine 03/09/2018 7:00 AM PRETZEL TWISTING MACHINE OPERATOR PROTIME INR (PT) Routine 03/09/2018 7:00 AM PRETZEL TWISTING MACHINE OPERATOR CBC AND DIFF Routine 03/09/2018 7:00 AM PRETZEL TWISTING MACHINE OPERATOR HEMOGLOBIN A1C Routine 03/09/2018 7:00 AM PRETZEL TWISTING MACHINE OPERATOR LIPID PROFILE Routine 03/09/2018 7:00 AM PRETZEL TWISTING MACHINE OPERATOR CTA NECK WO/W STAT 03/09/2018 CONTRAST+POST P 6:50 AM PRETZEL TWISTING MACHINE OPERATOR CTA HEAD WO/W CONTR+POST STAT 03/09/2018 PRO 6:50 AM PRETZEL TWISTING MACHINE OPERATOR CT BRAIN PERF STAT 03/09/2018 6:50 AM PRETZEL TWISTING MACHINE OPERATOR ECG 12-LEAD STAT 03/09/2018 6:26 AM PRETZEL TWISTING MACHINE OPERATOR from Last 3 Months Results * CBC (03/11/2018 5:10 AM PRETZEL TWISTING MACHINE OPERATOR) Only the most recent of 2 results [...] Count 146 (L) 150 - 400 K/UL MAIN LAB MPV 9.3 7 - 11 FL [facility] Specimen Blood Performing Organization Address City/[facility] Phone Number [facility] [address] [place] [address] * MAGNESIUM (03/11/2018 5:10 AM PRETZEL TWISTING MACHINE OPERATOR) Only the most recent of 3 results within the time period is included. Magnesium 1.7 1.6 - 2.6 mg/dL [facility] Specimen Blood Performing Organization Address City/[facility]/Zipcode Phone Number MAIN LAB [address] [place] [address] * BASIC METABOLIC PANEL (03/11/2018 5:10 AM PRETZEL TWISTING MACHINE OPERATOR) Only the most recent of 3 results within the time period is included. Sodium 135 (L) 137 - 147 MMOL/L [facility] Potassium 4.3 3.5 - 5.1 MMOL/L MAIN LAB Chloride 102 98 - 110 [...] for questions. Specimen Blood Performing Organization Address City/State/Zipcode Phone Number MAIN LAB [address] [place] [address] * PHOSPHORUS (03/10/2018 4:10 AM PRETZEL TWISTING MACHINE OPERATOR) Only the most recent of 2 results within the time period is included. Phosphorus 4.0Comment: NOTE NEW REFERENCE 2.0 - 4.5 MG/DL [facility] RANGES Specimen Blood Performing Organization Address City/[facility]/Zipcode Phone Number [facility] [address] [place] [address] * CT HEAD WO CONTRAST (03/10/2018 3:53 AM PRETZEL TWISTING MACHINE OPERATOR) Impressions Performed At 1.Development of subtle vague [...] Interface, Radiant Results - 03/10/2018 4:23 AM PRETZEL TWISTING MACHINE OPERATOR EXAM: CT HEAD CLINICAL INDICATION: Female, 78 [...] DEVICE EVALUATION - PPM (03/09/2018 2:50 PM PRETZEL TWISTING MACHINE OPERATOR) Generator Coordinator Of Evaluation [facility] OTHER OUTSIDE LAB Generator Model # Accent DR RF 2210 OTHER OUTSIDE LAB Generator Serial # [id number] OTHER OUTSIDE LAB Generator Implnat Date 03/01/13 OTHER OUTSIDE LAB Device Mode DDDR OTHER OUTSIDE LAB Lower Rate Limit 65 OTHER OUTSIDE LAB Atrial Lead Coordinator Of Evaluation [facility] OTHER OUTSIDE LAB Atrial Lead Model # Tendril STS 2088TC - 46cm OTHER OUTSIDE LAB Atrial Lead Serial # [id number] OTHER OUTSIDE LAB Atrial Lead Implant Date 03/01/13 OTHER OUTSIDE LAB RV Lead Coordinator Of Evaluation [facility] OTHER OUTSIDE LAB RV Lead Model # Tendril STS 2088TC - 52cm OTHER OUTSIDE LAB RV Lead Serial # [id number] OTHER OUTSIDE LAB RV Lead Implant Date 03/01/13 OTHER OUTSIDE LAB Initial Rhythm -VS OTHER OUTSIDE LAB Underlying Rhythm SR 80's OTHER OUTSIDE LAB Upper Rate Limit 125 OTHER OUTSIDE LAB Pace AV Delay 250 OTHER OUTSIDE LAB Sense AV Delay 225 OTHER OUTSIDE LAB -VS% 34 OTHER OUTSIDE LAB -SKI PATROL% <1 OTHER OUTSIDE LAB -VS% 65 OTHER OUTSIDE LAB AP-SKI PATROL% <1 OTHER OUTSIDE LAB # Mode S. [...] * ABDOMEN AP ONLY (03/09/2018 1:21 PM PRETZEL TWISTING MACHINE OPERATOR) Impressions Performed At No indwelling metal objects [...] Interface, Radiant Results - 03/09/2018 4:34 PM PRETZEL TWISTING MACHINE OPERATOR ABDOMEN AP ONLY Clinical Indication: Female, 78 [...] on 03/09/2018 1:29 PM. Performing Organization Address [facility] Facility[facility] Phone Number RAD RESULTS * URINALYSIS MICROSCOPIC REFLEX TO CULTURE (03/09/2018 11:51 AM PRETZEL TWISTING MACHINE OPERATOR) WBCs,UA 0-2 0 - 2 /HPF [facility] RBCs,UA 0-2 0 - 3 /HPF [facility] Comment,UA Urine submitted for reflex [facility] culture if criteria are met:WBC>10, positive nitrite and/or >=1+ leukocyte esterase. If quantity is not sufficient, an addendum will follow. Squamous Epithelial Cells 0-2 0 - 5 [facility] Specimen Urine Performing Organization Address [facility] Phone Number MAIN LAB [address] [place] [address] * URINALYSIS DIPSTICK REFLEX TO CULTURE (03/09/2018 11:51 AM PRETZEL TWISTING MACHINE OPERATOR) Color,UA STRAW [facility] Turbidity,UA CLEAR CLEAR-CLEAR [facility] Specific Amalia-Urine 1.020 1.003 - 1.035 [facility] MAIN LAB [...] MAIN LAB Specimen Urine Performing Organization Address [facility] Phone Number MAIN LAB [address] [place] [address] * 2-D + DOPPLER ECHOCARDIOGRAM (03/09/2018 11:31 AM PRETZEL TWISTING MACHINE OPERATOR) IVS 0.96 0.6 - 0.9 cm OTHER [...] m2 OTHER OUTSIDE LAB CV ECHO PV BUSINESS CONTINUITY PLANNER ANGEL Callahan OTHER OUTSIDE LAB FS 16.43 28 - 44 % OTHER OUTSIDE LAB EF 27.93 % OTHER OUTSIDE LAB LV mass 194.37 66 - 150 g OTHER OUTSIDE LAB RWT 0.31 <=0.42 OTHER OUTSIDE LAB E/A ratio 0.76 OTHER OUTSIDE LAB E/E' ratio 14.50 OTHER OUTSIDE LAB Left Atrium Index 50.93 16 - 34 OTHER OUTSIDE LAB Cardiology Ultrasound Siemens [id number] OTHER OUTSIDE LAB Machine Left Ventricle Mass Index 128.73 44 - 88 g/m2 OTHER OUTSIDE LAB MV vena contracta 0.26 cm OTHER OUTSIDE LAB Vn Nyquist 0.34 m/s OTHER OUTSIDE LAB Radius 0.4 cm OTHER OUTSIDE LAB MR PISA EROA 0.06 cm2 OTHER OUTSIDE LAB TV rest [...] OUTSIDE LAB * TROPONIN-I (03/09/2018 10:40 AM PRETZEL TWISTING MACHINE OPERATOR) Only the most recent of 3 results within the time period is included. Troponin-I 0.78 (H) 0.0 - 0.05 NG/ML [facility] Specimen Blood Performing Organization Address City/State/Zipcode Phone Number [facility] [address] [place] [address] * CHEST SINGLE VIEW (03/09/2018 8:29 AM PRETZEL TWISTING MACHINE OPERATOR) Impressions Performed At Mild cardiomegaly with no [...] Interface, Radiant Results - 03/09/2018 11:21 AM PRETZEL TWISTING MACHINE OPERATOR CHEST SINGLE VIEW Clinical history: Post TPA [...] on 03/09/2018 8:56 AM. Performing Organization Address [facility] Facility[facility] Phone Number RAD RESULTS * BNP (B-TYPE NATRIURETIC PEPTI) (03/09/2018 8:06 AM PRETZEL TWISTING MACHINE OPERATOR) B Type Natriuretic 334.0 (H) 0 - 100 PG/ML [facility] Peptide Specimen Blood Performing Organization Address [facility] Phone Number MAIN LAB [address] [place] [address] * PTT (APTT) (03/09/2018 7:00 AM PRETZEL TWISTING MACHINE OPERATOR) APTT 25.0Comment: NOTE NEW 24.0 - 36.5 SEC [facility] REFERENCE RANGES Specimen Blood Performing Organization Address [facility] Phone Number MAIN LAB [address] [place] [address] * PROTIME INR (PT) (03/09/2018 7:00 AM PRETZEL TWISTING MACHINE OPERATOR) INR 1.0 0.8 - 1.2 MAIN LAB Specimen Blood Performing Organization Address [facility] Phone Number MAIN LAB [address] [place] [address] * CBC AND DIFF (03/09/2018 7:00 AM PRETZEL TWISTING MACHINE OPERATOR) White Blood Cells 6.6 4.5 - 11.0 [...] MAIN LAB Specimen Blood Performing Organization Address City/[facility] Facility[facility] Phone Number MAIN LAB [address] [place] [address] * HEMOGLOBIN A1C (03/09/2018 7:00 AM PRETZEL TWISTING MACHINE OPERATOR) Hemoglobin A1C 6.4 (H) 4.0 - 6.0 % [facility] Comment: The ADA recommends that most patients with type 1 and type 2 diabetes maintain an A1c level <7%. Specimen Blood Performing Organization Address [facility] FacilityFooducate Phone Number MAIN LAB [address] [place] [address] * LIPID PROFILE (03/09/2018 7:00 AM PRETZEL TWISTING MACHINE OPERATOR) Cholesterol 217 (H) <200 MG/DL [facility] MAIN [...] 130 mg/dL. Specimen Blood Performing Organization Address [facility] Phone Number MAIN LAB [address] [place] [phone] * CT BRAIN PERF (03/09/2018 6:50 AM PRETZEL TWISTING MACHINE OPERATOR) Impressions Performed At CTA head: [facility] RAD [...] Interface, Radiant Results - 03/09/2018 7:28 AM PRETZEL TWISTING MACHINE OPERATOR EXAM: CTA HEAD AND NECK, CTA BRAIN [...] NECK WO/W CONTRAST+POST P (03/09/2018 6:50 AM PRETZEL TWISTING MACHINE OPERATOR) Impressions Performed At CTA head: [facility] RAD [...] Interface, Radiant Results - 03/09/2018 7:28 AM PRETZEL TWISTING MACHINE OPERATOR EXAM: CTA HEAD AND NECK, CTA BRAIN [...] HEAD WO/W CONTR+POST PRO (03/09/2018 6:50 AM PRETZEL TWISTING MACHINE OPERATOR) Impressions Performed At CTA head: [facility] RAD [...] Interface, Radiant Results - 03/09/2018 7:28 AM PRETZEL TWISTING MACHINE OPERATOR EXAM: CTA HEAD AND NECK, CTA BRAIN [...] on file. For more information, please contact: [facility] [address] [place] [address] Date Inactivated Comments Code Status Date Activated 03/11/2018 4:49 PM Full Code 03/09/2018 6:26 AM Provider has discussed Code Status No, more discussion w/Patient or Family? needed
--- OUTSIDE RECORDS SUMMARY | 2018-03-12 11:55 | XMS REPORT | Encounter Summary ---
Author Author [facility] Organization [facility] Address Unknown Phone Unavailable Care Team Providers Care Information Systems Security Officer Name Role Phone No Pcp, Na PCP Unavailable Reason for Visit * Auth/Cert Referred By Contact Referred To Contact Status Reason Specialty Diagnoses / Procedures Diagnoses Stroke (cerebrum) (HCC) NSTEMI; Stroke Encounter Details Care Team Description Date Type Department John Carpio MD [address] [place] [address] [phone] Mallory Walker MD [address] [facility] [address] [place] [address] Nolan Bettencourt MD [address] [place] [address] Estelita Hobbs MD [address] [facility] [address] [place] [address] Stroke (cerebrum) (HCC) 03/09/2018 Hospital CA5 ICU - Encounter [address] [facility] 03/11/2018 [place] [address] Social History Date Tobacco Use Types Packs/Day Years Used Never Assessed Sex Assigned at Date Recorded Not on file Industry Job Start Date Occupation Not on file Not on file Not on file Travel End Travel History Travel Start No recent travel history available. as of this encounter Last Filed Vital Signs Time Taken Vital Sign Reading 03/11/2018 2:00 PM ICT PROJECT MANAGER Blood Pressure 127/80 03/11/2018 2:00 PM ICT PROJECT MANAGER Pulse 70 03/11/2018 2:00 PM ICT PROJECT MANAGER Temperature 36.9 C (98.4 F) - Respiratory Rate - 03/11/2018 2:00 PM ICT PROJECT MANAGER Oxygen Saturation 97% - Inhaled Oxygen - Concentration 03/10/2018 4:00 AM ICT PROJECT MANAGER Weight 58.7 kg (129 lb 6.6 oz) 03/09/2018 11:31 AM ICT PROJECT MANAGER Height 147.3 cm (4' 10") 03/10/2018 4:00 AM ICT PROJECT MANAGER Body Mass Index 27.05 in this encounter [...] Orquidea Graham RN - 03/11/2018 2:34 PM ICT PROJECT MANAGER Report given to ANGEL Moore ([phone]) at 1130. Unable to get a hold of son Gautam Garcia ([phone]); notified Nohemi Kohler [facility] she notified me she left him a message and he was agreeable to the dcp. Pt belongings with pt. [address] [facility] here to transport Pt via wheelchair to [facility]. Transfer packet with pt at this time. PROJECT MANAGER * Sharlene Sadler - 03/11/2018 11:32 AM ICT PROJECT MANAGER SPEECH-LANGUAGE PATHOLOGY DAILY TREATMENT NOTE Patient seen [...] post acute hospitalization. Therapist: Sharlene Sadler MA, L/CCC-TACTICAL INTELLIGENCE OFFICER Voalte: [id number] Date: 03/11/2018 PROJECT MANAGER * Antionette Jean, PT - 03/11/2018 9:00 AM ICT PROJECT MANAGER PHYSICAL THERAPY PROGRESS NOTE MOBILITY: Mobility Progressive [...] placement Therapist: Antionette Jean PT Date: 03/11/2018 PROJECT MANAGER * Moon Kuhn MD - 03/10/2018 12:46 PM ICT PROJECT MANAGER NEURO-ENT ICU Critical Care Progress Note Today's [...] dvt ppx - stable for transfer to [facility] Staff name: Moon Kuhn MD Date: 03/10/2018 [...] radiology reviewed. Moon Kuhn MD 03/10/2018 Pager: [phone] PROJECT MANAGER * Mg Barton MD - 03/10/2018 9:46 AM ICT PROJECT MANAGER Cardiology: Remains in normal sinus. ECHO from [...] is NOT MRI compatible. Ordering team notified. PROJECT MANAGER * Tika Aldana, IRENE-CORRECTIONAL COOK - 03/10/2018 7:42 AM ICT PROJECT MANAGER Neuro Critical Care Progress Note Adeline Garcia [...] was just at the 4hour cooper from [facility]. There is concern for NSTEMI with troponin 1.[address] elevation in V2 per OSH. Pt was flown to [facility] for further evaluation and treatment. CTA/P confirmed left completed MCA stroke. Hospital and ICU course: 03/09 admitted to [facility] Neuro: left MCA stroke s/p tPA [...] for need for restraints. Disposition/Family: Admit to [facility] Primary service: NCC Consults: Cardiology and Stroke [...] Review: Pertinent radiologic and diagnostic procedures reviewed. ITZ Workman Date: 03/10/[phone] I spent 45 minutes managing the care of this patient. Adeline Garcia is critically ill with ischemic stroke, HTN, CAD. Cares included: detailed neurologic and systems exam, medication review, laboratory data review and interpretation, electrolyte management, review of available imaging, DVT/PE prophylaxis review, diet review, activity review,and coordination of care with consulted teams PROJECT MANAGER * Orquidea Hyde RN - 03/10/2018 4:00 AM ICT PROJECT MANAGER Pt traveled to [place] by wheelchair. Tolerated travel well, VSS. Will continue to monitor. PROJECT MANAGER * Moon Kuhn MD - 03/09/2018 2:01 PM ICT PROJECT MANAGER NEURO-ENT ICU Critical Care Progress Note Today's [...] radiology reviewed. Moon Kuhn MD 03/09/2018 Pager: [phone] PROJECT MANAGER * Tika Fraga OT - 03/09/2018 9:03 AM ICT PROJECT MANAGER OCCUPATIONAL THERAPY ASSESSMENT NOTE Patient Name: Adeline Garcia Room/Bed: [place] [address] Admitting Diagnosis: NSTEMI; Stroke Mobility Progressive Mobility [...] address most appropriate level of rehabilitation placement ([id number]). Equipment Recommendations: Too early to be determined Therapist: AUBRIE Astogra/Margie [id number] Date: 03/09/2018 PROJECT MANAGER * Abbey Hernandez, PT - 03/09/2018 9:03 AM ICT PROJECT MANAGER PHYSICAL THERAPY ASSESSMENT MOBILITY: Mobility Progressive Mobility [...] 19 Standardized (T-scale) Score: 42.48 Basic Mobility [facility] 0-100%: 36.99 [facility] G Code Modifier for Basic Mobility: CJ [...] placement Therapist: Abbey Hernandez, PT Date: 03/09/2018 PROJECT MANAGER Deisy Patrick - 03/09/2018 9:01 AM ICT PROJECT MANAGER SPEECH-LANGUAGE PATHOLOGY CLINICAL SWALLOW // LANGUAGE ASSESSMENTS [...] to state answers to direct questions from TACTICAL INTELLIGENCE OFFICER regarding the picture, but unable to sponteneously [...] CKD, HLD, DM2, HTN who presented to [facility] with Right weakness, aphasia, left preference NIHSS [...] Mech Exam Oral Mech WFL*: No Oral [facility] Exam Summary*: Mild right sided [...] Pt will participate in ongoing swallow trials ([facility] soft, regular) for purpose of diet advancement. [...] improve spontaneous speech provided mod cues. Therapist:Margie Hidalgo/CCC-TACTICAL INTELLIGENCE OFFICER (Pager [phone]; Voalte: [phone]) Date:03/09/2018 PROJECT MANAGER * Sindy Colorado RN (Grimes) - 03/09/2018 7:15 AM ICT PROJECT MANAGER Care assumed by this RN. Bedside safety [...] administered as necessary. Will continue to monitor. PROJECT MANAGER in this encounter H&P Notes * Sharita Delmar M, UNDERTAKER ASSISTANT - 03/09/2018 3:39 AM ICT PROJECT MANAGER Neuro Critical Care History and Physical Adeline [...] was just at the 4hour cooper from [facility]. There is concern for NSTEMI with troponin 1.[address] elevation in V2 per OSH. Pt was flown to [facility] for further evaluation and treatment Hospital and ICU course: 03/09 admitted to [facility] Neuro: left MCA stroke Stroke Symptom [...] on Anti-platelet treatment with ASA and plavix CERTIFIED CODER resume ASA post TPA on 03/10 Rehabilitation services involved: OT, PT and ST Cognitive impairment suspected? yes - if yes, TACTICAL INTELLIGENCE OFFICER cognitive evaluation ordered? Yes Rehabilitation medicine team [...] Disease - voiding- bladder scan PRN - CERTIFIED CODER BUN/Creat 05/04. - BUN/Creat on arrival 03/04. [...] for need for restraints. Disposition/Family: Admit to [facility] Primary service: NCC Consults: Cardiology and Stroke [...] EMS was called to her home in [facility], and she was taken to the local hospital. She was stroke activated, and TPA was administered at 0257. In the process of her work up, she was found to have EKG findings concerning for a NSTEMI and and elevated troponin of 1.15. She was transferred to [facility] for further cardiac and stroke care. Shortly after arrival here, she underwent a CTA /P which revealed findings suggestive of a left MCA stroke. Of note, per outside records, and patient's primary pharmacy, patient has not been taking CERTIFIED CODER meds, her last refills were in August [...] with consulted teams. Malachi BONILLA Date: 03/09/[phone] PROJECT MANAGER in this encounter Consult Notes * Renny Sparks MD - 03/09/2018 10:27 AM ICT PROJECT MANAGER Associated Order(s): CONSULT REHABILITATION MEDICINE PHYSICIAN Physical Medicine & Rehabilitation Consult Note Date of Service: 03/09/2018 Adeline Garcia is a 78 y.o. female. : 1940 Primary Insurance: MEDICARE Financial Class: Medicare Date of Admission: 03/09/2018 Referring Physician: Mallory Walker MD Reason for Consult: evaluate for Post-Acute Rehab/Placement Precautions: Fall Active Problems L MCA ischemic stroke Acute WI Aphasia Left gaze preference R neglect Impaired mobility and ADLs CKD HLD T2DM HTN Assessment & Plan Adeline Garcia is a 78 y.o. female admitted to [facility] on 03/09/2018 with the following issues: L MCA ischemic stroke Impairments: aphasia, communication deficits and neglect Activity Limitations: grooming, dressing - lower, toileting, ambulation, stairs and expression Participation Restrictions: unable to return home safely Post-acute care rehabilitation needs: acute inpatient rehabilitation -Patient with clear medical complexity and goals in at least 2 therapy disciplines (PT/OT/TACTICAL INTELLIGENCE OFFICER) appropriate for acute inpatient rehabilitation. Goals & [...] day: Alex Sparks MD Rehab Consult Pager: [phone] History of Present Illness CC: R sided [...] available for comparison. Per cardiology recs, no catheter builder at this time, monitor on tele, trend [...] at end of session, TABS alarm on, TACTICAL INTELLIGENCE OFFICER COGNITIVE EVALUATION SUMMARY PRAGMATICS: BEHAVIOR: AUDITORY COMPREHENSION: [...] by straw x7-10, pureed solids x5, or [facility] soft solids x2 Swallow Recommendations* PO: Full [...] MCA distribution infarct. No mismatch perfusion defect. PROJECT MANAGER Associated attestation - Sourav Watts MD - 03/09/2018 4:12 PM ICT PROJECT MANAGER Rehabilitation Medicine Attending Physician Attestation: I personally [...] Mg Barton MD - 03/09/2018 8:22 AM ICT PROJECT MANAGER Associated Order(s): CONSULT CARDIOLOGY PHYSICIAN CARDIOLOGY CONSULT [...] well around 2200 yesterday. She presented to [facility] with right sided weakness, aphasia, right denise [...] CKD Recommendations - Will hold off activating catheter builder as she doesn't meet STEMI criteria for [...] with plan above. After 5PM please call outpatient interviewing clerk instructional resource teacher. Friday - Friday 8AM-5PM please call Cardiology consult pager ASHWINI Holcomb CV Fellow Pager: [phone] Home Medications Medications Prior to Admission Medication [...] 4.5 MG/DL Glucose: (!) 146 (03/09/18 0700) PROJECT MANAGER in this encounter Miscellaneous Notes * Case Mgmt DC Plan - Antonia Sterling - 03/11/2018 2:10 PM ICT PROJECT MANAGER SURVEY ENGINEER Note: Faxed over discharge orders to [facility] per the request of PADMINI Kohler. Antonia Sterling Blocker Automatic For additional assistance, please contact PADMINI Kohler [phone]. PROJECT MANAGER * Case Mgmt DC Plan - Antonia Sterling - 03/11/2018 10:39 AM ICT PROJECT MANAGER SURVEY ENGINEER Note: Requested by: PADMINI Kohler [facility] transporting patient to [facility] with [facility] paying. transportation department supervisor time: 1:30p.m. This investment underwriter printed and placed transfer packet in pt's chart drawer. Antonia Sterling Blocker Automatic For additional assistance, please contact PADMINI Kohler [phone] PROJECT MANAGER * Case Mgmt DC Plan - Antonia Sterling - 03/11/2018 9:20 AM ICT PROJECT MANAGER SURVEY ENGINEER Note Received request from PADMINI Kohler to assist with transportation coordination. This investment underwriter obtained multiple transportation companies and obtained quotes for wheelchair van transportation from [facility] to [address] [place] [address]. [facility] - $450.00 [facility] Shingle Tr[employer] - $378.50 [facility] - $350.00 Updated PADMINI. Antonia Sterling Case Management Assitant For additional assistance, please contact [facility] Nohemi Kohler [phone]. PROJECT MANAGER * Case Mgmt DC Plan - Nohemi Kohler - 03/11/2018 8:53 AM ICT PROJECT MANAGER Case Management Progress NoteNAME:Adeline Garcia :1940 AGE: 78 y.o. ADMISSION DATE: 03/09/2018 DAYS ADMITTED: LOS: 2 days Todays Date: 03/11/2018 Plan D/c to [facility] today at 1:30pm via [facility] w/c van. Interventions SW reviewed EMR and met with Neuro team for huddle. ? Support Support: Pt/Family Updates re:POC or DC Plan, Counseling for Adaptation to Illness, Counseling for Psychosocial issues See below ? Info or Referral ? Discharge Planning Discharge Planning: Inpatient Rehabilitation JAMES spoke with Jojo ([phone]) at [facility] and they are agreeable to admission. SW educated that she will follow up on d/c timeline once established. SW sent updated clinicals to [facility]. SW tasked SURVEY ENGINEER to [employer] check w/c van to [facility] [place]. Update 9:30am: JAMES spoke with Neuro Team [...] agreeable to covering transport cost. SW tasked SURVEY ENGINEER to arrange w/c van to [facility] [place]. SW tasked SURVEY ENGINEER to deliver transfer packet. JAMES spoke with Neuro Team to update. JAMES spoke with bedside RN to update. JAMES spoke with Allegra at [facility] [place] to confirm DCP. RN Report: [phone] JAMES faxed d/c orders to [facility] at [phone]. ? Medication Needs ? Financial ? Legal [...] for the patient. Nohemi Kohler LMSW Phone: [phone] Pager: [phone] PROJECT MANAGER * Transfer - Tika Aldana APRN-CORRECTIONAL COOK - 03/10/2018 1:01 PM ICT PROJECT MANAGER In-Hospital Transfer Note Admission Diagnosis: Left MCA [...] V2 per OSH. Pt was transferred to [facility] for further evaluation and treatment. CTA/P on arrival confirmed a left completed MCA stroke with with distal thrombus and was not an IR candidate. NIHSS improved to 7 post tPA. Repeat EKG with same ATA in V2. Cardiology was consulted. She was not a candidate for catheter builder, so troponin was trended with monitoring. Echo [...] Information: - H/O non compliance with medication CERTIFIED CODER - Coreg and Lisinopril restarted low dose- titrate up as tolerated - Aspirin and Plavix restarted 03/10 - SQ heparin started for DVT ppx Procedures With Dates: none Consults: Cardiology, Rehab medicine Follow-Up Items: Speech therapy recommendations for diet advancement Activity/Weight bearing status: Up with PT/OT Nutrition: Full liquid diet Discharge Plan: Transfer to floor with tele ITZ Workman Pager [phone] PROJECT MANAGER * Case Mgmt DC Plan - Jose F Nohemi - 03/09/2018 1:55 PM ICT PROJECT MANAGER Case Management Progress NoteNAME:Adeline Garcia :1940 AGE: 78 y.o. ADMISSION DATE: 03/09/2018 DAYS ADMITTED: LOS: 0 days Todays Date: 03/09/2018 Plan Anticipate d/c to [facility] end of this week pending pt [...] of options. Pt endorsing interest in [facility]. Pt denied concerns at this time. JAMES spoke with pt's son Gautam ([phone]) to discuss DCP. JAMES educated on IPR level of care and benefit. SW provided list of options. Gautam endorsing interest in [facility], as this is closer to home. However, Gautam indicated that should pt require much assistance upon d/c he likely would be unable to assist. Gautam expressing potential interest in LTC placement if necessary. ? Info or Referral ? Discharge Planning Discharge Planning: Inpatient Rehabilitation SW sent referral to [facility]. ? Medication Needs ? Financial ? Legal [...] for the patient. Nohemi Kohler LMSW Phone: [phone] Pager: [phone] PROJECT MANAGER * Case Mgmt DC Plan - Nohemi Kohler - 03/09/2018 1:52 PM ICT PROJECT MANAGER Case Management Admission AssessmentNAME:Adeline Garcia :1940 AGE: 78 y.o. ADMISSION DATE: 03/09/2018 DAYS ADMITTED: LOS: 0 days Todays Date: 03/09/2018 Source of Information: SW visited pt at bedside to completion assessment. Pt with aphasia, however was able to provide a majority of information. However, SW confirmed assessment information with pt's son Gautam ([phone]). Plan Plan: Case Management Assessment, Discharge Planning [...] ? Coverage Primary Insurance: Medicare Secondary Insurance: [place] Additional Coverage: RX(fills at [employer] in [place]) ? Source of Income Source Of Income: [...] ? Outpatient Therapy PT: No OT: No TACTICAL INTELLIGENCE OFFICER: No ? [facility] Facility[facility] SN[facility]: No NH: No ? Inpatient Rehab IPR: No ? Long-Term Acute Care Hospital LTACH: No ? Acute Hospital Stay Acute Hospital Stay: In the past Was patient's stay within the last 30 days?: No Nohemi Kohler LMSW Phone: [phone] Pager: [phone] PROJECT MANAGER * Acute Stroke Response - Chrissy Kolb RN - 03/09/2018 6:23 AM ICT PROJECT MANAGER RN Stroke Activation Summary Date of Service: 03/09/2018 Adeline Garcia is a 78 y.o. female. : 1940 Allergies: Patient has no allergy information on record. Patient Arrival: 622 ASRT Arrival: 06 Location of Response : [facility] Page Received: 4335 Clinical Presentation: Aphasia, Dysarthria, Right sided weakness [...] Narrative Not on file Chrissy Kolb RN PROJECT MANAGER in this encounter Plan of Treatment Date/Time Name Priority Associated Diagnoses 03/09/2018 11:51 AM ICT PROJECT MANAGER UA REFLEX CULTURE LABEL Routine Order Schedule Name Priority Associated Diagnoses ONE TIME for 1 Occurrences starting 03/11/2018 EVENT MONITOR Routine as of this encounter Procedures Comments Procedure Name Priority Date/Time Associated Diagnosis CBC Routine 03/11/2018 5:10 AM ICT PROJECT MANAGER MAGNESIUM Routine 03/11/2018 5:10 AM ICT PROJECT MANAGER BASIC METABOLIC PANEL Routine 03/11/2018 5:10 AM ICT PROJECT MANAGER CBC Routine 03/10/2018 4:10 AM ICT PROJECT MANAGER PHOSPHORUS Routine 03/10/2018 4:10 AM ICT PROJECT MANAGER MAGNESIUM Routine 03/10/2018 4:10 AM ICT PROJECT MANAGER BASIC METABOLIC PANEL Routine 03/10/2018 4:[address] HEAD WO CONTRAST Routine 03/10/2018 3:53 AM ICT PROJECT MANAGER DEVICE EVALUATION - PPM STAT 03/09/2018 2:50 PM ICT PROJECT MANAGER ABDOMEN AP ONLY Routine 03/09/2018 1:21 PM ICT PROJECT MANAGER URINALYSIS MICROSCOPIC Routine 03/09/2018 REFLEX TO CULTURE 11:51 AM ICT PROJECT MANAGER URINALYSIS DIPSTICK Routine 03/09/2018 REFLEX TO CULTURE 11:51 AM ICT PROJECT MANAGER 2-D + DOPPLER Routine 03/09/2018 ECHOCARDIOGRAM 11:31 AM ICT PROJECT MANAGER TROPONIN-I STAT 03/09/2018 10:40 AM ICT PROJECT MANAGER CHEST SINGLE VIEW STAT 03/09/2018 8:29 AM ICT PROJECT MANAGER TROPONIN-I STAT 03/09/2018 8:06 AM ICT PROJECT MANAGER BNP (B-TYPE NATRIURETIC Routine 03/09/2018 PEPTI) 8:06 AM ICT PROJECT MANAGER CONSULT IV THERAPY TEAM STAT 03/09/2018 7:38 AM ICT PROJECT MANAGER TROPONIN-I STAT 03/09/2018 7:00 AM ICT PROJECT MANAGER PTT (APTT) Routine 03/09/2018 7:00 AM ICT PROJECT MANAGER PROTIME INR (PT) Routine 03/09/2018 7:00 AM ICT PROJECT MANAGER CBC AND DIFF Routine 03/09/2018 7:00 AM ICT PROJECT MANAGER PHOSPHORUS Routine 03/09/2018 7:00 AM ICT PROJECT MANAGER MAGNESIUM Routine 03/09/2018 7:00 AM ICT PROJECT MANAGER HEMOGLOBIN A1C Routine 03/09/2018 7:00 AM ICT PROJECT MANAGER LIPID PROFILE Routine 03/09/2018 7:00 AM ICT PROJECT MANAGER BASIC METABOLIC PANEL Routine 03/09/2018 7:[address] PRO[address] BRAIN PERF STAT 03/09/2018 6:50 AM ICT PROJECT MANAGER CTA NECK WO/W STAT 03/09/2018 CONTRAST+POST P 6:50 AM ICT PROJECT MANAGER CTA HEAD WO/W CONTR+POST STAT 03/09/2018 PRO 6:50 AM ICT PROJECT MANAGER ECG 12-LEAD STAT 03/09/2018 6:26 AM ICT PROJECT MANAGER in this encounter Results * MAGNESIUM (03/11/2018 5:10 AM ICT PROJECT MANAGER) Magnesium 1.7 1.6 - 2.6 mg/dL [facility] MAIN [facility] Specimen Blood Performing Organization Address [facility] Phone Number MA[facility] LAB [address] [place] [address] * BASIC METABOLIC PANEL (03/11/2018 5:10 AM ICT PROJECT MANAGER) Sodium 135 (L) 137 - 147 MMOL/L [...] for questions. Specimen Blood Performing Organization Address [facility] Phone Number [facility] [address] [place] [address] * CBC (03/11/2018 5:10 AM ICT PROJECT MANAGER) White Blood Cells 6.5 4.5 - 11.0 [...] MAIN LAB Specimen Blood Performing Organization Address City/[facility] Phone Number [facility] [address] [place] [address] * PHOSPHORUS (03/10/2018 4:10 AM ICT PROJECT MANAGER) Phosphorus 4.0Comment: NOTE NEW REFERENCE 2.0 - 4.5 MG/DL [facility] MAIN [facility] RANGES Specimen Blood Performing Organization Address City/[facility] Phone Number [facility] LAB [address] [place] [phone] * MAGNESIUM (03/10/2018 4:10 AM ICT PROJECT MANAGER) Magnesium 2.1 1.6 - 2.6 mg/dL [facility]IN [facility] Specimen Blood Performing Organization Address [facility] Phone Number [facility] [address] [place] [phone] * BASIC METABOLIC PANEL (03/10/2018 4:10 AM ICT PROJECT MANAGER) Sodium 138 137 - 147 MMOL/L [facility] [...] for questions. Specimen Blood Performing Organization Address City/[facility]/Zipcode Phone Number MAIN LAB [address] [place] [address] * CBC (03/10/2018 4:10 AM ICT PROJECT MANAGER) White Blood Cells 6.5 4.5 - 11.0 [...] MAIN LAB Specimen Blood Performing Organization Address [facility] Phone Number [facility] [address] [place] [address] * CT HEAD WO CONTRAST (03/10/2018 3:53 AM ICT PROJECT MANAGER) Impressions Performed At 1.Development of subtle vague [...] Interface, Radiant Results - 03/10/2018 4:23 AM ICT PROJECT MANAGER EXAM: CT HEAD CLINICAL INDICATION: Female, 78 [...] DEVICE EVALUATION - PPM (03/09/2018 2:50 PM ICT PROJECT MANAGER) Generator Interlocking And Signal Mechanic [facility] OTHER OUTSIDE LAB Generator Model # Accent DR RF 0548 OTHER OUTSIDE LAB Generator Serial # [id number] OTHER OUTSIDE LAB Generator Implnat Date 03/01/13 OTHER OUTSIDE LAB Device Mode DDDR OTHER OUTSIDE LAB Lower Rate Limit 65 OTHER OUTSIDE LAB Atrial Lead Interlocking And Signal Mechanic [facility] OTHER OUTSIDE LAB Atrial Lead Model # Tendril STS 2088TC - 46cm OTHER OUTSIDE LAB Atrial Lead Serial # [id number] OTHER OUTSIDE LAB Atrial Lead Implant Date 03/01/13 OTHER OUTSIDE LAB RV Lead Interlocking And Signal Mechanic [facility] OTHER OUTSIDE LAB RV Lead Model # Tendril STS 2088TC - 52cm OTHER OUTSIDE LAB RV Lead Serial # [id number] OTHER OUTSIDE LAB RV Lead Implant Date 03/01/13 OTHER OUTSIDE LAB Initial Rhythm -VS OTHER OUTSIDE LAB Underlying Rhythm SR 80's OTHER OUTSIDE LAB Upper Rate Limit 125 OTHER OUTSIDE LAB Pace AV Delay 250 OTHER OUTSIDE LAB Sense AV Delay 225 OTHER OUTSIDE LAB -VS% 34 OTHER OUTSIDE LAB -BLADE CHANGER% <1 OTHER OUTSIDE LAB -VS% 65 OTHER OUTSIDE LAB AP-BLADE CHANGER% <1 OTHER OUTSIDE LAB # Mode S. [...] * ABDOMEN AP ONLY (03/09/2018 1:21 PM ICT PROJECT MANAGER) Impressions Performed At No indwelling metal objects [...] Interface, Radiant Results - 03/09/2018 4:34 PM ICT PROJECT MANAGER ABDOMEN AP ONLY Clinical Indication: Female, 78 [...] on 03/09/2018 1:29 PM. Performing Organization Address [facility] Phone Number RAD RESULTS * URINALYSIS MICROSCOPIC REFLEX TO CULTURE (03/09/2018 11:51 AM ICT PROJECT MANAGER) WBCs,UA 0-2 0 - 2 /HPF [facility] RBCs,UA 0-2 0 - 3 /HPF [facility] Comment,UA Urine submitted for reflex [facility] culture if criteria are met:WBC>10, positive nitrite and/or >=1+ leukocyte esterase. If quantity is not sufficient, an addendum will follow. Squamous Epithelial Cells 0-2 0 - 5 [facility] Specimen Urine Performing Organization Address [facility] [place] Phone Number MAIN LAB [address] [place] [address] * URINALYSIS DIPSTICK REFLEX TO CULTURE (03/09/2018 11:51 AM ICT PROJECT MANAGER) Color,UA STRAW [facility] Turbidity,UA CLEAR CLEAR-CLEAR [facility] Specific [facility]-Urine 1.020 1.003 - 1.035 [facility] [...] MAIN LAB Specimen Urine Performing Organization Address [facility] [place] Phone Number MAIN LAB [address] [place] [address] * 2-D + DOPPLER ECHOCARDIOGRAM (03/09/2018 11:31 AM ICT PROJECT MANAGER) IVS 0.96 0.6 - 0.9 cm OTHER [...] m2 OTHER OUTSIDE LAB CV ECHO PV REELING OPERATOR ANGEL Callahan OTHER OUTSIDE LAB FS 16.43 28 - 44 % OTHER OUTSIDE LAB EF 27.93 % OTHER OUTSIDE LAB LV mass 194.37 66 - 150 g OTHER OUTSIDE LAB RWT 0.31 <=0.42 OTHER OUTSIDE LAB E/A ratio 0.76 OTHER OUTSIDE LAB E/E' ratio 14.50 OTHER OUTSIDE LAB Left Atrium Index 50.93 16 - 34 OTHER OUTSIDE LAB Cardiology Ultrasound Siemens [id number] OTHER OUTSIDE LAB Machine Left Ventricle Mass [...] OUTSIDE LAB * TROPONIN-I (03/09/2018 10:40 AM ICT PROJECT MANAGER) Troponin-I 0.78 (H) 0.0 - 0.05 NG/ML [facility] Specimen Blood Performing Organization Address City/State/Zipcode Phone Number MAIN LAB [address] [place] [address] * CHEST SINGLE VIEW (03/09/2018 8:29 AM ICT PROJECT MANAGER) Impressions Performed At Mild cardiomegaly with no [...] Interface, Radiant Results - 03/09/2018 11:21 AM ICT PROJECT MANAGER CHEST SINGLE VIEW Clinical history: Post TPA [...] on 03/09/2018 8:56 AM. Performing Organization Address [facility] Phone Number [facility] RESULTS * BNP (B-TYPE NATRIURETIC PEPTI) (03/09/2018 8:06 AM ICT PROJECT MANAGER) B Type Natriuretic 334.0 (H) 0 - 100 PG/ML MAIN LAB Peptide Specimen Blood Performing Organization Address [facility] [place] Phone Number MAIN LAB [address] [place] [address] * TROPONIN-I (03/09/2018 8:06 AM ICT PROJECT MANAGER) Troponin-I 0.74 (H) 0.0 - 0.05 NG/ML MAIN LAB Specimen Blood Performing Organization Address [facility] [place] Phone Number MAIN LAB [address] [place] [address] * PHOSPHORUS (03/09/2018 7:00 AM ICT PROJECT MANAGER) Phosphorus 3.7Comment: NOTE NEW REFERENCE 2.0 - 4.5 MG/DL MAIN LAB RANGES Specimen Blood Performing Organization Address [facility] [place] Phone Number MAIN LAB [address] [place] [address] * MAGNESIUM (03/09/2018 7:00 AM ICT PROJECT MANAGER) Magnesium 1.4 (L) 1.6 - 2.6 mg/dL MAIN LAB Specimen Blood Performing Organization Address [facility] [place] Phone Number MAIN LAB [address] [place] [address] * TROPONIN-I (03/09/2018 7:00 AM ICT PROJECT MANAGER) Troponin-I 0.67 (H) 0.0 - 0.05 NG/ML MAIN LAB Specimen Blood Performing Organization Address [facility] [place] Phone Number MAIN LAB [address] [place] [address] * BASIC METABOLIC PANEL (03/09/2018 7:00 AM ICT PROJECT MANAGER) Sodium 136 (L) 137 - 147 MMOL/L [...] for questions. Specimen Blood Performing Organization Address [facility] Phone Number [facility] [address] [place] [address] * PTT (APTT) (03/09/2018 7:00 AM ICT PROJECT MANAGER) APTT 25.0Comment: NOTE NEW 24.0 - 36.5 SEC [facility] REFERENCE RANGES Specimen Blood Performing Organization Address [facility] Phone [facility] [address] [place] [address] * PROTIME INR (PT) (03/09/2018 7:00 AM ICT PROJECT MANAGER) INR 1.0 0.8 - 1.2 [facility] Specimen Blood Performing Organization Address [facility] Phone Number [facility] [address] [place] [phone] * CBC AND DIFF (03/09/2018 7:00 AM ICT PROJECT MANAGER) White Blood Cells 6.6 4.5 - 11.0 [...] MAIN LAB Specimen Blood Performing Organization Address [facility] Phone Number [facility] [address] [place] [address] * HEMOGLOBIN A1C (03/09/2018 7:00 AM ICT PROJECT MANAGER) Hemoglobin A1C 6.4 (H) 4.0 - 6.0 % MAIN LAB Comment: The ADA recommends that most patients with type 1 and type 2 diabetes maintain an A1c level <7%. Specimen Blood Performing Organization Address [facility] Phone Number [facility] [address] [place] [address] * LIPID PROFILE (03/09/2018 7:00 AM ICT PROJECT MANAGER) Cholesterol 217 (H) <200 MG/DL [facility]IN [...] 130 mg/dL. Specimen Blood Performing Organization Address [facility] Phone Number [facility] [address] [place] [address] * CTA NECK WO/W CONTRAST+POST P (03/09/2018 6:50 AM ICT PROJECT MANAGER) Impressions Performed At CTA head: [facility] [...] Interface, Radiant Results - 03/09/2018 7:28 AM ICT PROJECT MANAGER EXAM: CTA HEAD AND NECK, CTA BRAIN [...] HEAD WO/W CONTR+POST PRO (03/09/2018 6:50 AM ICT PROJECT MANAGER) Impressions Performed At CTA head: [facility] [...] Interface, Radiant Results - 03/09/2018 7:28 AM ICT PROJECT MANAGER EXAM: CTA HEAD AND NECK, CTA BRAIN [...] * CT BRAIN PERF (03/09/2018 6:50 AM ICT PROJECT MANAGER) Impressions Performed At CTA head: [facility] [...] Interface, Radiant Results - 03/09/2018 7:28 AM ICT PROJECT MANAGER EXAM: CTA HEAD AND NECK, CTA BRAIN [...] Medication Order MAR Action 03/11/2018 8:06 AM ICT PROJECT MANAGER 81 mg aspirin chewable tablet 81 mg Given 81 mg, Oral, DAILY, First dose on Fri03/10/18 at 1315, Until Discontinued 81 mg Given 03/10/2018 1:51 PM ICT PROJECT MANAGER 03/11/2018 8:05 AM ICT PROJECT MANAGER 40 mg atorvastatin (LIPITOR) tablet 40 mg Given 40 mg, Oral, DAILY, First dose on Fri03/10/18 at 1315, Until Discontinued 40 mg Given 03/10/2018 1:51 PM ICT PROJECT MANAGER 03/11/2018 8:05 AM ICT PROJECT MANAGER 6.25 mg carvedilol (COREG) tablet 6.25 mg Given 6.25 mg, Oral, TWICE DAILY, First dose on Fri03/09/18 at 2100, Until Discontinued, Hold for heart rate < 60 bpm or systolic BP < 100, 6.25 mg Given 03/10/2018 8:04 PM ICT PROJECT MANAGER 6.25 mg Given 03/10/2018 9:15 AM ICT PROJECT MANAGER 03/11/2018 8:05 AM ICT PROJECT MANAGER 75 mg clopiDOGrel (PLAVIX) tablet 75 mg Given 75 mg, Oral, DAILY, First dose on Fri03/10/18 at 1245, Until Discontinued, This Medication can increase the risk of bleeding and may need to be held prior to surgery or invasive procedures. Consult physician in advance., 75 mg Given 03/10/2018 1:51 PM ICT PROJECT MANAGER 03/10/2018 9:15 AM ICT PROJECT MANAGER 100 mg docusate (COLACE) capsule 100 mg Given 100 mg, Oral, TWICE DAILY, First dose on Fri03/09/18 at 2100, Until Discontinued, Hold for loose stools, 100 mg Given 03/09/2018 8:22 PM ICT PROJECT MANAGER 03/11/2018 6:13 AM ICT PROJECT MANAGER 5,000 Units Abdomen:RLQ heparin (porcine) PF syringe 5,000 Units Given 5,000 Units, Subcutaneous, EVERY 8 HOURS, First dose on Fri03/10/18 at 1400, Until Discontinued, NOTE: This is a HIGH ALERT Medication., 5,000 Units Abdomen:LLQ Given 03/10/2018 10:32 PM ICT PROJECT MANAGER 5,000 Units Abdomen:LUQ Given 03/10/2018 1:53 PM ICT PROJECT MANAGER 03/09/2018 7:00 AM ICT PROJECT MANAGER 100 mL iohexol (OMNIPAQUE-350) 350 mg/mL Given injection 100 mL 100 mL, Intravenous, ONCE, 1 dose, Fri03/09/18 at 0700, NOTE: This is a HIGH ALERT Medication., 03/09/2018 7:47 AM ICT PROJECT MANAGER 10 mg labetalol (NORMODYNE) injection 10 mg Given 10 mg, Intravenous, NEEDED, 2 doses, Starting Fri03/09/18 at 0626, Until Fri03/09/18 at 0801, Blood Pressure..., , For SBP >=185mmHg and/or DBP >=110mmHg Push over ONE min. Dose to be DOUBLED every 15min, if needed. Max [id number]. Notify Physician if BP not controlled after TWO doses., 03/11/2018 8:05 AM ICT PROJECT MANAGER 5 mg lisinopril (PRINIVIL; ZESTRIL) tablet 5 Given mg 5 mg, Oral, DAILY, First dose on Fri03/10/18 at 1315, Until Discontinued 5 mg Given 03/10/2018 1:51 PM ICT PROJECT MANAGER 03/09/2018 12:00 PM ICT PROJECT MANAGER 1 g 100 mL/hr magnesium sulfate 1 g/D5W 100 mL IVPB Given - New 1 g, Intravenous, 100 mL, Administer Bag over 1 Hours, EVERY 1 HOUR FOR 4 DOSES, 4 doses, First dose on Fri03/09/18 at 0800, Last dose on Fri03/09/18 at 1100, Each 1gm delivers 8.1 mEq Magnesium., 1 g 100 mL/hr Given - New Bag 03/09/2018 10:43 AM ICT PROJECT MANAGER 1 g 100 mL/hr Given - New Bag 03/09/2018 9:41 AM ICT PROJECT MANAGER 03/10/2018 9:16 AM ICT PROJECT MANAGER 10 mL milk of magnesia (CONC) oral suspension Given 10 mL 10 mL, Oral, DAILY, First dose on Fri03/09/18 at 1515, Until Discontinued, May hold if BM within 24 hours of dose. 10 mL CONC=30 mL MOM, 03/09/2018 11:19 AM ICT PROJECT MANAGER 2 Diluted mL perflutren lipid microspheres (DEFINITY) Given injection 1-20 Diluted mL 1-20 Diluted mL, Intravenous, ONCE, 1 dose, Fri03/09/18 at 1115, NOTE: This is a HIGH ALERT Medication., MAC Procedure Area Only - Medications 03/10/2018 9:15 AM ICT PROJECT MANAGER 1 tablet senna/docusate (SENOKOT-S) tablet 1 Given tablet 1 tablet, Oral, TWICE DAILY, First dose on Fri03/09/18 at 2100, Until Discontinued, Hold for loose stools. If patient unable to take tablet, give 10 mL of senna/docusate (SENOKOT-S) solution. Send inThermodynamic Process Controlet message to pharmacy., If patient unable to take tablet, give 10 mL of senna/docusate (SENOKOT-S) solution., 1 tablet Given 03/09/2018 8:22 PM ICT PROJECT MANAGER 03/09/2018 7:00 AM ICT PROJECT MANAGER 50 mL sodium chloride PF 0.9% injection 50 mL Given 50 mL, Intravenous, ONCE, 1 dose, Fri03/09/18 at 0700, DO NOT SEND this medication unless it is requested. This med is usually available in floor stock., Intra-procedure (IR) in this encounter
--- OUTSIDE RECORDS SUMMARY | 2018-03-12 11:55 | XMS REPORT | Encounter Summary ---
Author Author [facility] Organization [facility] Address Unknown Phone Unavailable Care Team Providers Care Senior Loss Control Specialist Name Role Phone No Pcp, Na PCP Unavailable Reason for Visit * Auth/Cert Referred By Contact Referred To Contact Status Reason Specialty Diagnoses / Procedures Diagnoses Stroke (cerebrum) (HCC) NSTEMI; Stroke Encounter Details Care Team Description Date Type Department Moon Kuhn MD [address] [place] [address] Arrived 03/09/2018 Hospital Cardiovascular Medicine Encounter Main [facility] [place] [address] Social History Date Tobacco Use [...] EVALUATION - PPM STAT 03/09/2018 2:50 PM CASH SPECIALIST in this encounter Visit Diagnoses Not on filein this encounter
--- OUTSIDE RECORDS SUMMARY | 2018-03-12 11:57 | XMS REPORT | Continuity of Care Document ---
Author Author [facility] Organization [facility] Address Unknown Phone Unavailable Allergies Active [...] UNSPECIFIED 10/29/2010 Ot 414.01 CORONARY ATHEROSCLEROSIS OF [place] CORON 10/29/2010 Ot 715.37 LOC OSTEOARTH NOS-ANKLE [...] Ot V58.63 10/11/2014 Ot V72.63 11/04/2014 NEWBEENA SECURITY CONTROL ASSESSOR-C Ot 244.9 11/04/2014 NEW, BEENA Alejo SECURITY CONTROL ASSESSOR-C Ot 250.40 11/04/2014 NEW, BEENA Alejo SECURITY CONTROL ASSESSOR-C Ot 263.9 11/04/2014 NEW, BEENA Alejo SECURITY CONTROL ASSESSOR-C Ot 268.9 11/04/2014 NEW, BEENA Alejo SECURITY CONTROL ASSESSOR-C Ot 272.4 11/04/2014 NEW, BEENA Alejo SECURITY CONTROL ASSESSOR-C Ot 276.7 11/04/2014 NEW, BEENA Alejo SECURITY CONTROL ASSESSOR-C Ot 285.21 11/04/2014 NEW, BEENA Alejo SECURITY CONTROL ASSESSOR-C Ot 404.10 11/04/2014 NEW, BEENA Alejo SECURITY CONTROL ASSESSOR-C Ot 414.00 11/04/2014 NEWBEENA SECURITY CONTROL ASSESSOR-C Ot 585.3 11/04/2014 NEW, BEENA Alejo SECURITY CONTROL ASSESSOR-C Ot 588.81 11/04/2014 BEENA DANIELSON SECURITY CONTROL ASSESSOR-C Ot 723.0 11/04/2014 NEW, BEENA Alejo SECURITY CONTROL ASSESSOR-C Ot 791.0 11/04/2014 NEW, BEENA Alejo SECURITY CONTROL ASSESSOR-C Ot 796.4 03/07/2015 Ot 735.0 03/07/2015 Ot V72.83 03/07/2015 Ot V74.8 03/07/2015 Ot 735.0 03/07/2015 Ot V64.3 03/07/2015 Ot 414.01 03/07/2015 Ot 735.0 03/07/2015 Ot V58.63 03/07/2015 Ot V72.63 03/07/2015 NEW, BEENA Alejo SECURITY CONTROL ASSESSOR-C Ot 244.9 03/07/2015 NEW, BEENA Alejo SECURITY CONTROL ASSESSOR-C Ot 250.40 03/07/2015 NEW, BEENA Alejo SECURITY CONTROL ASSESSOR-C Ot 263.9 03/07/2015 NEW, BEENA Alejo SECURITY CONTROL ASSESSOR-C Ot 268.9 03/07/2015 NEW, BEENA Alejo SECURITY CONTROL ASSESSOR-C Ot 272.4 03/07/2015 NEW, BEENA Alejo SECURITY CONTROL ASSESSOR-C Ot 276.7 03/07/2015 NEW, BEENA Alejo SECURITY CONTROL ASSESSOR-C Ot 285.21 03/07/2015 NEW, BEENA Alejo SECURITY CONTROL ASSESSOR-C Ot 404.10 03/07/2015 NEW, BEENA Alejo SECURITY CONTROL ASSESSOR-C Ot 414.00 03/07/2015 NEW, BEENA Alejo SECURITY CONTROL ASSESSOR-C Ot 585.3 03/07/2015 NEW, BEENA Alejo SECURITY CONTROL ASSESSOR-C Ot 588.81 03/07/2015 NEW, BEENA Alejo SECURITY CONTROL ASSESSOR-C Ot 723.0 03/07/2015 NEW, BEENA Alejo SECURITY CONTROL ASSESSOR-C Ot 791.0 03/07/2015 NEW, BEENA Alejo SECURITY CONTROL ASSESSOR-C Ot 796.4 03/30/2015 NEW, BEENA Alejo SECURITY CONTROL ASSESSOR-C Ot D63.1 03/30/2015 NEW, BEENA Alejo SECURITY CONTROL ASSESSOR-C Ot D72.819 03/30/2015 NEW, BEENA Alejo SECURITY CONTROL ASSESSOR-C Ot E03.9 03/30/2015 NEW, BEENA Alejo SECURITY CONTROL ASSESSOR-C Ot E11.29 03/30/2015 NEW, BEENA Alejo SECURITY CONTROL ASSESSOR-C Ot E46 03/30/2015 NEW, BEENA Alejo SECURITY CONTROL ASSESSOR-C Ot E55.9 03/30/2015 NEW, BEENA Alejo SECURITY CONTROL ASSESSOR-C Ot E78.5 03/30/2015 NEW, BEENA Alejo SECURITY CONTROL ASSESSOR-C Ot E87.5 03/30/2015 NEW, BEENA Alejo NP-C Ot I13.10 03/30/2015 NEW, BEENA Alejo SECURITY CONTROL ASSESSOR-C Ot I25.10 03/30/2015 NEW, BEENA Alejo NP-C Ot M48.02 03/30/2015 NEW, BEENA Alejo SECURITY CONTROL ASSESSOR-C Ot N18.4 03/30/2015 NEW, BEENA Alejo SECURITY CONTROL ASSESSOR-C Ot R80.9 05/28/2015 Ot 735.0 05/28/2015 Ot V72.83 05/28/2015 Ot V74.8 05/28/2015 Ot 735.0 05/28/2015 Ot V64.3 05/28/2015 Ot 414.01 05/28/2015 Ot 735.0 05/28/2015 Ot V58.63 05/28/2015 Ot V72.63 05/28/2015 NEW, BEENA Alejo SECURITY CONTROL ASSESSOR-C Ot 244.9 05/28/2015 NEW, BEENA Alejo SECURITY CONTROL ASSESSOR-C Ot 250.40 05/28/2015 NEW, BEENA Alejo SECURITY CONTROL ASSESSOR-C Ot 263.9 05/28/2015 NEW, BEENA Alejo SECURITY CONTROL ASSESSOR-C Ot 268.9 05/28/2015 NEW, BEENA Alejo SECURITY CONTROL ASSESSOR-C Ot 272.4 05/28/2015 NEW, BEENA Alejo SECURITY CONTROL ASSESSOR-C Ot 276.7 05/28/2015 NEW, BEENA Alejo SECURITY CONTROL ASSESSOR-C Ot 285.21 05/28/2015 NEW, BEENA Alejo SECURITY CONTROL ASSESSOR-C Ot 404.10 05/28/2015 NEW, BEENA Alejo SECURITY CONTROL ASSESSOR-C Ot 414.00 05/28/2015 NEW, BEENA Alejo SECURITY CONTROL ASSESSOR-C Ot 585.3 05/28/2015 NEW, BEENA G. SECURITY CONTROL ASSESSOR-C Ot 588.81 05/28/2015 NEW, BEENA Alejo SECURITY CONTROL ASSESSOR-C Ot 723.0 05/28/2015 NEW, BEENA Alejo SECURITY CONTROL ASSESSOR-C Ot 791.0 05/28/2015 NEW, BEENA Alejo SECURITY CONTROL ASSESSOR-C Ot 796.4 05/28/2015 NEW, BEENA Alejo SECURITY CONTROL ASSESSOR-C Ot D63.1 05/28/2015 NEW, BEENA Alejo SECURITY CONTROL ASSESSOR-C Ot D72.819 05/28/2015 NEW, BEENA Alejo SECURITY CONTROL ASSESSOR-C Ot E03.9 05/28/2015 NEW, BEENA Alejo SECURITY CONTROL ASSESSOR-C Ot E11.29 05/28/2015 NEW, BEENA Alejo SECURITY CONTROL ASSESSOR-C Ot E46 05/28/2015 NEW, BEENA Alejo SECURITY CONTROL ASSESSOR-C Ot E55.9 05/28/2015 NEW, BEENA Alejo SECURITY CONTROL ASSESSOR-C Ot E78.5 05/28/2015 NEW, BEENA Alejo SECURITY CONTROL ASSESSOR-C Ot E87.5 05/28/2015 NEW, BEENA Alejo SECURITY CONTROL ASSESSOR-C Ot I13.10 05/28/2015 NEW, BEENA Alejo SECURITY CONTROL ASSESSOR-C Ot I25.10 05/28/2015 NEW, BEENA Alejo SECURITY CONTROL ASSESSOR-C Ot M48.02 05/28/2015 NEW, BEENA Alejo SECURITY CONTROL ASSESSOR-C Ot N18.4 05/28/2015 NEW, BEENA Alejo SECURITY CONTROL ASSESSOR-C Ot R80.9 05/28/2015 DONNIE CARLTON APRN Ot [...] NEC 09/25/2015 Ot 414.01 CORONARY ATHEROSCLEROSIS OF [place] CORON 09/25/2015 Ot 735.0 HALLUX VALGUS 09/25/2015 Ot V58.63 LONG-TERM( CURRENT)USE OF ANTIPLATELET/AN 09/25/2015 Ot V72.63 PRE- PROCEDURAL LABORATORY EXAMINATION 09/25/2015 BEENA DANIELSON SECURITY CONTROL ASSESSOR-C Ot 244.9 HYPOTHYROIDISM NOS 09/25/2015 BEENA DANIELSON SECURITY CONTROL ASSESSOR-C Ot 250.40 DIAB W RENAL MANIFEST, TYPE II OR UNSPEC 09/25/2015 BEENA DANIELSON SECURITY CONTROL ASSESSOR-C Ot 263.9 PROTEIN-ANA MALNUTR NOS 09/25/2015 BEENA DANIELSON SECURITY CONTROL ASSESSOR-C Ot 268.9 VITAMIN D DEFICIENCY NOS 09/25/2015 BEENA DANIELSON SECURITY CONTROL ASSESSOR-C Ot 272.4 HYPERLIPIDEMIA NEC/NOS 09/25/2015 BEENA DANIELSON SECURITY CONTROL ASSESSOR-C Ot 276.7 HYPERPOTASSEMIA 09/25/2015 BEENA DANIELSON SECURITY CONTROL ASSESSOR-C Ot 285.21 ANEMIA IN CHRONIC KIDNEY DISEASE 09/25/2015 BEENA DANIELSON SECURITY CONTROL ASSESSOR-C Ot 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, BENIGN, 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 09/25/2015 BEENA DANIELSON SECURITY CONTROL ASSESSOR-C Ot 414.00 CORON ATHEROSCLER NOS TYPE VESSEL, NATIV 09/25/2015 BEENA DANIELSON SECURITY CONTROL ASSESSOR-C Ot 585.3 CHRONIC KIDNEY DISEASE, STAGE III (MODER 09/25/2015 BEENA DANIELSON SECURITY CONTROL ASSESSOR-C Ot 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 09/25/2015 BEENA DANIELSON SECURITY CONTROL ASSESSOR-C Ot 723.0 CERVICAL SPINAL STENOSIS 09/25/2015 BEENA DANIELSON SECURITY CONTROL ASSESSOR-C Ot 791.0 PROTEINURIA 09/25/2015 BEENA DANIELSON SECURITY CONTROL ASSESSOR-C Ot 796.4 ABN CLINICAL FINDING NEC 09/25/2015 BEENA DANIELSON SECURITY CONTROL ASSESSOR-C Ot D63.1 ANEMIA IN CHRONIC KIDNEY DISEASE 09/25/2015 BEENA DANIELSON SECURITY CONTROL ASSESSOR-C Ot D72.819 DECREASED WHITE BLOOD CELL COUNT, UNSPEC 09/25/2015 BEENA DANIELSON SECURITY CONTROL ASSESSOR-C Ot E03.9 HYPOTHYROIDISM, UNSPECIFIED 09/25/2015 NEW, BEENA Alejo SECURITY CONTROL ASSESSOR-C Ot E11.29 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 09/25/2015 NEW, BEENA Alejo SECURITY CONTROL ASSESSOR-C Ot E46 UNSPECIFIED PROTEIN-CALORIE MALNUTRITION 09/25/2015 NEW, BEENA Alejo SECURITY CONTROL ASSESSOR-C Ot E55.9 VITAMIN D DEFICIENCY, UNSPECIFIED 09/25/2015 NEW, BEENA Alejo SECURITY CONTROL ASSESSOR-C Ot E78.5 HYPERLIPIDEMIA, UNSPECIFIED 09/25/2015 NEW, BEENA Alejo SECURITY CONTROL ASSESSOR-C Ot E87.5 HYPERKALEMIA 09/25/2015 NEW, BEENA Alejo SECURITY CONTROL ASSESSOR-C Ot 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, W S 09/25/2015 NEW, BEENA Alejo SECURITY CONTROL ASSESSOR-C Ot I25.10 ATHSCL HEART DISEASE OF [place] CORONARY 09/25/2015 NEW, BEENA Alejo SECURITY CONTROL ASSESSOR-C Ot M48.02 SPINAL STENOSIS, CERVICAL REGION 09/25/2015 NEW, BEENA Alejo SECURITY CONTROL ASSESSOR-C Ot N18.4 CHRONIC KIDNEY DISEASE, STAGE 4 (SEVERE) 09/25/2015 NEW, BEENA Alejo SECURITY CONTROL ASSESSOR-C Ot R80.9 PROTEINURIA, UNSPECIFIED 09/26/2015 NEW, BEENA Alejo SECURITY CONTROL ASSESSOR-C Ot D63.1 ANEMIA IN CHRONIC KIDNEY DISEASE 09/26/2015 NEW, BEENA Alejo SECURITY CONTROL ASSESSOR-C Ot D72.819 DECREASED WHITE BLOOD CELL COUNT, UNSPEC 09/26/2015 NEW, BEENA Alejo NP-C Ot E03.9 HYPOTHYROIDISM, UNSPECIFIED 09/26/2015 NEW, BEENA Alejo SECURITY CONTROL ASSESSOR-C Ot E11.22 TYPE 2 DIABETES MELLITUS W DIABETIC HOSPICE COMMUNITY LIAISON 09/26/2015 NEW, BEENA lAejo SECURITY CONTROL ASSESSOR-C Ot E46 UNSPECIFIED PROTEIN-CALORIE MALNUTRITION 09/26/2015 NEW, BEENA Alejo SECURITY CONTROL ASSESSOR-C Ot E55.9 VITAMIN D DEFICIENCY, UNSPECIFIED 09/26/2015 NEW, BEENA Alejo SECURITY CONTROL ASSESSOR-C Ot E78.5 HYPERLIPIDEMIA, UNSPECIFIED 09/26/2015 NEW, BEENA Alejo SECURITY CONTROL ASSESSOR-C Ot E87.5 HYPERKALEMIA 09/26/2015 NEW, BEENA MahoneySheree SECURITY CONTROL ASSESSOR-C Ot 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 SECURITY CONTROL ASSESSOR-C Ot I25.10 ATHSCL HEART DISEASE OF [place] CORONARY 09/26/2015 NEW, BEENA MahoneySheree SECURITY CONTROL ASSESSOR-C Ot M48.02 SPINAL STENOSIS, CERVICAL REGION 09/26/2015 NEW, BEENA G. 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 09/26/2015 NEW, BEENA GSheree SECURITY CONTROL ASSESSOR-C Ot R80.9 PROTEINURIA, UNSPECIFIED 09/27/2015 NEW, BEENA MahoneySheree SECURITY CONTROL ASSESSOR-C Ot D63.1 ANEMIA IN CHRONIC KIDNEY DISEASE 09/27/2015 NEW, BEENA GSheree SECURITY CONTROL ASSESSOR-C Ot D72.819 DECREASED WHITE BLOOD CELL COUNT, UNSPEC 09/27/2015 NEW, BEENA GSheree SECURITY CONTROL ASSESSOR-C Ot E03.9 HYPOTHYROIDISM, UNSPECIFIED 09/27/2015 NEW, BEENA MaruSheree SECURITY CONTROL ASSESSOR-C Ot E11.22 TYPE 2 DIABETES MELLITUS W DIABETIC HOSPICE COMMUNITY LIAISON 09/27/2015 NEW, BEENA MaruSheree SECURITY CONTROL ASSESSOR-C Ot E46 UNSPECIFIED PROTEIN-CALORIE MALNUTRITION 09/27/2015 NEW, BEENA GSheree SECURITY CONTROL ASSESSOR-C Ot E55.9 VITAMIN D DEFICIENCY, UNSPECIFIED 09/27/2015 NEW, BEENA GSheree SECURITY CONTROL ASSESSOR-C Ot E78.5 HYPERLIPIDEMIA, UNSPECIFIED 09/27/2015 NEW, BEENA MahoneySheree SECURITY CONTROL ASSESSOR-C Ot E87.5 HYPERKALEMIA 09/27/2015 NEW, BEENA MahoneySheree SECURITY CONTROL ASSESSOR-C Ot 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, W S 09/27/2015 NEW, BEENA MaruSheree SECURITY CONTROL ASSESSOR-C Ot I25.10 ATHSCL HEART DISEASE OF [place] CORONARY 09/27/2015 NEW, BEENA GSheree SECURITY CONTROL ASSESSOR-C Ot M48.02 SPINAL STENOSIS, CERVICAL REGION 09/27/2015 NEW, BEENA GSheree SECURITY CONTROL ASSESSOR-C Ot 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 09/27/2015 NEW, BEENA GSheree SECURITY CONTROL ASSESSOR-C Ot R80.9 PROTEINURIA, UNSPECIFIED 10/02/2015 NEW, BEENA MaruSheree SECURITY CONTROL ASSESSOR-C Ot E11.29 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 10/02/2015 NEW, BEENA MaruSheree SECURITY CONTROL ASSESSOR-C Ot N18.4 CHRONIC KIDNEY DISEASE, STAGE 4 (SEVERE) 10/31/2015 NEW, BEENA Alejo SECURITY CONTROL ASSESSOR-C Ot D63.1 ANEMIA IN CHRONIC KIDNEY DISEASE 10/31/2015 NEW, BEENA Alejo SECURITY CONTROL ASSESSOR-C Ot D72.819 DECREASED WHITE BLOOD CELL COUNT, UNSPEC 10/31/2015 NEW, BEENA Alejo SECURITY CONTROL ASSESSOR-C Ot E03.9 HYPOTHYROIDISM, UNSPECIFIED 10/31/2015 NEW, BEENA Alejo SECURITY CONTROL ASSESSOR-C Ot E11.22 TYPE 2 DIABETES MELLITUS W DIABETIC HOSPICE COMMUNITY LIAISON 10/31/2015 NEW, BEENA MahoneySheree SECURITY CONTROL ASSESSOR-C Ot E46 UNSPECIFIED PROTEIN-CALORIE MALNUTRITION 10/31/2015 NEW, BEENA Alejo SECURITY CONTROL ASSESSOR-C Ot E55.9 VITAMIN D DEFICIENCY, UNSPECIFIED 10/31/2015 NEW, BEENA Alejo SECURITY CONTROL ASSESSOR-C Ot E78.5 HYPERLIPIDEMIA, UNSPECIFIED 10/31/2015 NEW, BEENA Alejo SECURITY CONTROL ASSESSOR-C Ot E87.5 HYPERKALEMIA 10/31/2015 NEW, BEENA Alejo SECURITY CONTROL ASSESSOR-C Ot 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, W S 10/31/2015 NEW, BEENA MahoneySheree SECURITY CONTROL ASSESSOR-C Ot I25.10 ATHSCL HEART DISEASE OF [place] CORONARY 10/31/2015 NEW, BEENA Alejo SECURITY CONTROL ASSESSOR-C Ot M48.02 SPINAL STENOSIS, CERVICAL REGION 10/31/2015 NEW, BEENA Alejo SECURITY CONTROL ASSESSOR-C Ot N18.4 CHRONIC KIDNEY DISEASE, STAGE 4 (SEVERE) 10/31/2015 NEW, BEENA Alejo SECURITY CONTROL ASSESSOR-C Ot 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 10/31/2015 NEW, BEENA GSheree SECURITY CONTROL ASSESSOR-C Ot R80.9 PROTEINURIA, UNSPECIFIED 12/24/2015 NEW, BEENA MahoneySheree SECURITY CONTROL ASSESSOR-C Ot D63.1 ANEMIA IN CHRONIC KIDNEY DISEASE 12/24/2015 NEW, BEENA Alejo SECURITY CONTROL ASSESSOR-C Ot D72.819 DECREASED WHITE BLOOD CELL COUNT, UNSPEC 12/24/2015 NEW, BEENA GSheree SECURITY CONTROL ASSESSOR-C Ot E03.9 HYPOTHYROIDISM, UNSPECIFIED 12/24/2015 NEW, BEENA MahoneySheree SECURITY CONTROL ASSESSOR-C Ot E11.22 TYPE 2 DIABETES MELLITUS W DIABETIC HOSPICE COMMUNITY LIAISON 12/24/2015 NEW, BEENA Alejo SECURITY CONTROL ASSESSOR-C Ot E46 UNSPECIFIED PROTEIN-CALORIE MALNUTRITION 12/24/2015 NEW, BEENA MahoneySheree SECURITY CONTROL ASSESSOR-C Ot E55.9 VITAMIN D DEFICIENCY, UNSPECIFIED 12/24/2015 NEW, BEENA Alejo NP-C Ot E78.5 HYPERLIPIDEMIA, UNSPECIFIED 12/24/2015 NEW, BEENA Alejo SECURITY CONTROL ASSESSOR-C Ot E87.5 HYPERKALEMIA 12/24/2015 BEENA DANIELSON SECURITY CONTROL ASSESSOR-C Ot 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, W S 12/24/2015 BEENA DANIELSON NP-C Ot I25.10 ATHSCL HEART DISEASE OF [place] CORONARY 12/24/2015 NEW, BEENA Alejo SECURITY CONTROL ASSESSOR-C Ot M48.02 SPINAL STENOSIS, CERVICAL REGION 12/24/2015 NEW, BEENA Alejo SECURITY CONTROL ASSESSOR-C Ot N18.4 CHRONIC KIDNEY DISEASE, STAGE 4 (SEVERE) 12/24/2015 NEW, BEENA Alejo NP-C Ot 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 12/24/2015 BEENA DANIELSON SECURITY CONTROL ASSESSOR-C Ot R80.9 PROTEINURIA, UNSPECIFIED 03/27/2016 Ot 414.01 CORONARY ATHEROSCLEROSIS OF [place] CORON 03/27/2016 Ot 735.0 HALLUX VALGUS 03/27/2016 Ot V58.63 LONG-TERM( CURRENT)USE OF ANTIPLATELET/AN 03/27/2016 Ot V72.63 PRE- PROCEDURAL LABORATORY EXAMINATION 03/27/2016 BEENA DANIELSON SECURITY CONTROL ASSESSOR-C Ot 244.9 HYPOTHYROIDISM NOS 03/27/2016 JAGJIT, BEENA Alejo SECURITY CONTROL ASSESSOR-C Ot 250.40 DIAB W RENAL MANIFEST, TYPE II OR UNSPEC 03/27/2016 BEENA DANIELSON SECURITY CONTROL ASSESSOR-C Ot 263.9 PROTEIN-ANA MALNUTR NOS 03/27/2016 BEENA DANIELSON SECURITY CONTROL ASSESSOR-C Ot 268.9 VITAMIN D DEFICIENCY NOS 03/27/2016 JAGJIT, BEENA Alejo SECURITY CONTROL ASSESSOR-C Ot 272.4 HYPERLIPIDEMIA NEC/NOS 03/27/2016 NEW, BEENA Alejo SECURITY CONTROL ASSESSOR-C Ot 276.7 HYPERPOTASSEMIA 03/27/2016 JAGJIT, BEENA Alejo SECURITY CONTROL ASSESSOR-C Ot 285.21 ANEMIA IN CHRONIC KIDNEY DISEASE 03/27/2016 JAGJIT, BEENA Alejo SECURITY CONTROL ASSESSOR-C Ot 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, BENIGN, 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 03/27/2016 JAGJIT, BEENA Alejo SECURITY CONTROL ASSESSOR-C Ot 414.00 CORON ATHEROSCLER NOS TYPE VESSEL, NATIV 03/27/2016 JAGJIT, BEENA Alejo SECURITY CONTROL ASSESSOR-C Ot 585.3 CHRONIC KIDNEY DISEASE, STAGE III (MODER 03/27/2016 NEWBEENA SECURITY CONTROL ASSESSOR-C Ot 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 03/27/2016 BEENA DANIELSON SECURITY CONTROL ASSESSOR-C Ot 723.0 CERVICAL SPINAL STENOSIS 03/27/2016 BEENA DANIELSON SECURITY CONTROL ASSESSOR-C Ot 791.0 PROTEINURIA 03/27/2016 BEENA DANIELSON SECURITY CONTROL ASSESSOR-C Ot 796.4 ABN CLINICAL FINDING NEC 03/27/2016 BEENA DANIELSON SECURITY CONTROL ASSESSOR-C Ot D63.1 ANEMIA IN CHRONIC KIDNEY DISEASE 03/27/2016 BEENA DANIELSON SECURITY CONTROL ASSESSOR-C Ot D72.819 DECREASED WHITE BLOOD CELL COUNT, UNSPEC 03/27/2016 BEENA DANIELSON SECURITY CONTROL ASSESSOR-C Ot E03.9 HYPOTHYROIDISM, UNSPECIFIED 03/27/2016 BEENA DANIELSON SECURITY CONTROL ASSESSOR-C Ot E11.29 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 03/27/2016 BEENA DANIELSON SECURITY CONTROL ASSESSOR-C Ot E46 UNSPECIFIED PROTEIN-CALORIE MALNUTRITION 03/27/2016 BEENA DANIELSON SECURITY CONTROL ASSESSOR-C Ot E55.9 VITAMIN D DEFICIENCY, UNSPECIFIED 03/27/2016 BEENA DANIELSON SECURITY CONTROL ASSESSOR-C Ot E78.5 HYPERLIPIDEMIA, UNSPECIFIED 03/27/2016 BEENA DANIELSON SECURITY CONTROL ASSESSOR-C Ot E87.5 HYPERKALEMIA 03/27/2016 BEENA DANIELSON SECURITY CONTROL ASSESSOR-C Ot 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, W S 03/27/2016 BEENA DANIELSON SECURITY CONTROL ASSESSOR-C Ot I25.10 ATHSCL HEART DISEASE OF [place] CORONARY 03/27/2016 BEENA DANIELSON SECURITY CONTROL ASSESSOR-C Ot M48.02 SPINAL STENOSIS, CERVICAL REGION 03/27/2016 BEENA DANIELSON SECURITY CONTROL ASSESSOR-C Ot N18.4 CHRONIC KIDNEY DISEASE, STAGE 4 (SEVERE) 03/27/2016 BEENA DANIELSON SECURITY CONTROL ASSESSOR-C Ot R80.9 PROTEINURIA, UNSPECIFIED 03/27/2016 BEENA DANIELSON SECURITY CONTROL ASSESSOR-C Ot D63.1 ANEMIA IN CHRONIC KIDNEY DISEASE 03/27/2016 BEENA DANIELSON SECURITY CONTROL ASSESSOR-C Ot D72.819 DECREASED WHITE BLOOD CELL COUNT, UNSPEC 03/27/2016 BEENA DANIELSON SECURITY CONTROL ASSESSOR-C Ot E03.9 HYPOTHYROIDISM, UNSPECIFIED 03/27/2016 NEW, BEENA Alejo SECURITY CONTROL ASSESSOR-C Ot E11.22 TYPE 2 DIABETES MELLITUS W DIABETIC HOSPICE COMMUNITY LIAISON 03/27/2016 NEW, BEENA Alejo SECURITY CONTROL ASSESSOR-C Ot E46 UNSPECIFIED PROTEIN-CALORIE MALNUTRITION 03/27/2016 NEW, BEENA Alejo SECURITY CONTROL ASSESSOR-C Ot E55.9 VITAMIN D DEFICIENCY, UNSPECIFIED 03/27/2016 NEW, BEENA MahoneySheree SECURITY CONTROL ASSESSOR-C Ot E78.5 HYPERLIPIDEMIA, UNSPECIFIED 03/27/2016 NEW, BEENA MahoneySheree SECURITY CONTROL ASSESSOR-C Ot E87.5 HYPERKALEMIA 03/27/2016 NEW, BEENA MahoneySheree SECURITY CONTROL ASSESSOR-C Ot 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, W S 03/27/2016 NEW, BEENA MahoneySheree SECURITY CONTROL ASSESSOR-C Ot I25.10 ATHSCL HEART DISEASE OF [place] CORONARY 03/27/2016 NEW, BEENA MahoneySheree SECURITY CONTROL ASSESSOR-C Ot M48.02 SPINAL STENOSIS, CERVICAL REGION 03/27/2016 NEW, BEENA GSheree SECURITY CONTROL ASSESSOR-C Ot 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 03/27/2016 NEW, BEENA MahoneySheree SECURITY CONTROL ASSESSOR-C Ot R80.9 PROTEINURIA, UNSPECIFIED 03/27/2016 NEW, BEENA Alejo SECURITY CONTROL ASSESSOR-C Ot D63.1 ANEMIA IN CHRONIC KIDNEY DISEASE 03/27/2016 NEW, BEENA Alejo SECURITY CONTROL ASSESSOR-C Ot D72.819 DECREASED WHITE BLOOD CELL COUNT, UNSPEC 03/27/2016 NEW, BEENA Alejo SECURITY CONTROL ASSESSOR-C Ot E03.9 HYPOTHYROIDISM, UNSPECIFIED 03/27/2016 NEW, BEENA MahoneySheree SECURITY CONTROL ASSESSOR-C Ot E11.22 TYPE 2 DIABETES MELLITUS W DIABETIC HOSPICE COMMUNITY LIAISON 03/27/2016 NEW, BEENA MahoneySheree SECURITY CONTROL ASSESSOR-C Ot E46 UNSPECIFIED PROTEIN-CALORIE MALNUTRITION 03/27/2016 NEW, BEENA MahoneySheree SECURITY CONTROL ASSESSOR-C Ot E55.9 VITAMIN D DEFICIENCY, UNSPECIFIED 03/27/2016 NEW, BEENA GSheree SECURITY CONTROL ASSESSOR-C Ot E78.5 HYPERLIPIDEMIA, UNSPECIFIED 03/27/2016 NEW, BEENA MahoneySheree SECURITY CONTROL ASSESSOR-C Ot E87.5 HYPERKALEMIA 03/27/2016 NEW, BEENA MahoneySheree SECURITY CONTROL ASSESSOR-C Ot 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 SECURITY CONTROL ASSESSOR-C Ot D50.9 IRON DEFICIENCY ANEMIA, UNSPECIFIED 03/29/2016 NEW, BEENA GSheree SECURITY CONTROL ASSESSOR-C Ot D63.1 ANEMIA IN CHRONIC KIDNEY DISEASE 03/29/2016 NEW, BEENA GSheree SECURITY CONTROL ASSESSOR-C Ot N18.3 CHRONIC KIDNEY DISEASE, STAGE 3 (MODERAT 04/01/2016 NEW, BEENA Alejo SECURITY CONTROL ASSESSOR-C Ot D50.9 IRON DEFICIENCY ANEMIA, UNSPECIFIED 04/01/2016 NEW, BEENA MaruSheree SECURITY CONTROL ASSESSOR-C Ot D63.1 ANEMIA IN CHRONIC KIDNEY DISEASE 04/01/2016 NEW, BEENA MahoneySheree SECURITY CONTROL ASSESSOR-C Ot N18.3 CHRONIC KIDNEY DISEASE, STAGE 3 (MODERAT 04/03/2016 NEW, BEENA G. SECURITY CONTROL ASSESSOR-C Ot D50.9 IRON DEFICIENCY ANEMIA, UNSPECIFIED 04/03/2016 NEW, BEENA Maru. SECURITY CONTROL ASSESSOR-C Ot D63.1 ANEMIA IN CHRONIC KIDNEY DISEASE 04/03/2016 NEW, BEENA GSheree SECURITY CONTROL ASSESSOR-C Ot N18.3 CHRONIC KIDNEY DISEASE, STAGE 3 (MODERAT 04/03/2016 NEW, BEENA Maru. SECURITY CONTROL ASSESSOR-C Ot D50.9 IRON DEFICIENCY ANEMIA, UNSPECIFIED 04/03/2016 NEW, BEENA G. SECURITY CONTROL ASSESSOR-C Ot D63.1 ANEMIA IN CHRONIC KIDNEY DISEASE 04/03/2016 NEW, BEENA G. SECURITY CONTROL ASSESSOR-C Ot N18.3 CHRONIC KIDNEY DISEASE, STAGE 3 (MODERAT 04/05/2016 NEW, BEENA G. SECURITY CONTROL ASSESSOR-C Ot D50.9 IRON DEFICIENCY ANEMIA, UNSPECIFIED 04/05/2016 NEW, BEENA G. SECURITY CONTROL ASSESSOR-C Ot D63.1 ANEMIA IN CHRONIC KIDNEY DISEASE 04/05/2016 NEW, BEENA GSheree SECURITY CONTROL ASSESSOR-C Ot N18.3 CHRONIC KIDNEY DISEASE, STAGE 3 (MODERAT 05/06/2016 NEW, BEENA G. SECURITY CONTROL ASSESSOR-C Ot D50.9 IRON DEFICIENCY ANEMIA, UNSPECIFIED 05/06/2016 NEW, BEENA Alejo SECURITY CONTROL ASSESSOR-C Ot D63.1 ANEMIA IN CHRONIC KIDNEY DISEASE 05/06/2016 NEW, BEENA Alejo SECURITY CONTROL ASSESSOR-C Ot N18.3 CHRONIC KIDNEY DISEASE, STAGE 3 (MODERAT 06/25/2016 NEW, BEENA Alejo SECURITY CONTROL ASSESSOR-C Ot D50.9 IRON DEFICIENCY ANEMIA, UNSPECIFIED 06/25/2016 NEW, BEENA Alejo SECURITY CONTROL ASSESSOR-C Ot D63.1 ANEMIA IN CHRONIC KIDNEY DISEASE 06/25/2016 NEW, BEENA Alejo SECURITY CONTROL ASSESSOR-C Ot N18.3 CHRONIC KIDNEY DISEASE, STAGE 3 (MODERAT 08/18/2016 NEW, BEENA Alejo SECURITY CONTROL ASSESSOR-C Ot D63.1 ANEMIA IN CHRONIC KIDNEY DISEASE 08/18/2016 NEW, BEENA Alejo SECURITY CONTROL ASSESSOR-C Ot D72.819 DECREASED WHITE BLOOD CELL COUNT, UNSPEC 08/18/2016 NEW, BEENA Alejo SECURITY CONTROL ASSESSOR-C Ot E03.9 HYPOTHYROIDISM, UNSPECIFIED 08/18/2016 NEW, BENEA Alejo SECURITY CONTROL ASSESSOR-C Ot E11.29 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 08/18/2016 NEW, BEENA Alejo SECURITY CONTROL ASSESSOR-C Ot E46 UNSPECIFIED PROTEIN-[place] MALNUTRITION 08/18/2016 NEW, BEENA Alejo SECURITY CONTROL ASSESSOR-C Ot E55.9 VITAMIN D DEFICIENCY, UNSPECIFIED 08/18/2016 NEW, BEENA Alejo SECURITY CONTROL ASSESSOR-C Ot E78.5 HYPERLIPIDEMIA, UNSPECIFIED 08/18/2016 NEW, BEENA Alejo SECURITY CONTROL ASSESSOR-C Ot E87.5 HYPERKALEMIA 08/18/2016 NEW, BEENA MahoneySheree SECURITY CONTROL ASSESSOR-C Ot 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, W S 08/18/2016 NEW, BEENA MahoneySheree SECURITY CONTROL ASSESSOR-C Ot I25.10 ATHSCL HEART DISEASE OF [place] CORONARY 08/18/2016 NEW, BEENA MahoneySheree SECURITY CONTROL ASSESSOR-C Ot M48.02 SPINAL STENOSIS, CERVICAL REGION 08/18/2016 NEW, BEENA Alejo SECURITY CONTROL ASSESSOR-C Ot N18.4 CHRONIC KIDNEY DISEASE, STAGE 4 (SEVERE) 08/18/2016 NEW, BEENA MahoneySheree SECURITY CONTROL ASSESSOR-C Ot 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 08/18/2016 NEW, BEENA MahoneySheree SECURITY CONTROL ASSESSOR-C Ot R80.9 PROTEINURIA, UNSPECIFIED 08/18/2016 NEW, BEENA Alejo SECURITY CONTROL ASSESSOR-C Ot D63.1 ANEMIA IN CHRONIC KIDNEY DISEASE 08/18/2016 NEW, BEENA Alejo SECURITY CONTROL ASSESSOR-C Ot D72.819 DECREASED WHITE BLOOD CELL COUNT, UNSPEC 08/18/2016 NEW, BEENA Alejo SECURITY CONTROL ASSESSOR-C Ot E03.9 HYPOTHYROIDISM, UNSPECIFIED 08/18/2016 NEW, BEENA Alejo SECURITY CONTROL ASSESSOR-C Ot E11.29 TYPE 2 DIABETES MELLITUS W [facility] DIABETIC 08/18/2016 NEW, BEENA Alejo SECURITY CONTROL ASSESSOR-C Ot E46 UNSPECIFIED PROTEIN-[place] MALNUTRITION 08/18/2016 NEW, BEENA Alejo SECURITY CONTROL ASSESSOR-C Ot E55.9 VITAMIN D DEFICIENCY, UNSPECIFIED 08/18/2016 NEW, BEENA Alejo SECURITY CONTROL ASSESSOR-C Ot E78.5 HYPERLIPIDEMIA, UNSPECIFIED 08/18/2016 NEW, BEENA Alejo SECURITY CONTROL ASSESSOR-C Ot E87.5 HYPERKALEMIA 08/18/2016 NEW, BEENA Alejo SECURITY CONTROL ASSESSOR-C Ot 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, W S 08/18/2016 NEW, BEENA Alejo SECURITY CONTROL ASSESSOR-C Ot I25.10 ATHSCL HEART DISEASE OF [place] CORONARY 08/18/2016 NEW, BEENA Alejo SECURITY CONTROL ASSESSOR-C Ot M48.02 SPINAL STENOSIS, CERVICAL REGION 08/18/2016 NEW, BEENA Alejo SECURITY CONTROL ASSESSOR-C Ot N18.4 CHRONIC KIDNEY DISEASE, STAGE 4 (SEVERE) 08/18/2016 NEW, BEENA Alejo SECURITY CONTROL ASSESSOR-C Ot 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 08/18/2016 NEW, BEENA Alejo SECURITY CONTROL ASSESSOR-C Ot R80.9 PROTEINURIA, UNSPECIFIED 09/06/2016 NEW, BEENA Alejo SECURITY CONTROL ASSESSOR-C Ot D63.1 ANEMIA IN CHRONIC KIDNEY DISEASE 09/06/2016 NEW, BEENA Alejo SECURITY CONTROL ASSESSOR-C Ot D72.819 DECREASED WHITE BLOOD CELL COUNT, UNSPEC 09/06/2016 NEW, BEENA Alejo SECURITY CONTROL ASSESSOR-C Ot E03.9 HYPOTHYROIDISM, UNSPECIFIED 09/06/2016 NEW, BEENA Alejo SECURITY CONTROL ASSESSOR-C Ot E11.29 TYPE 2 DIABETES MELLITUS W [facility] DIABETIC 09/06/2016 NEW, BEENA Alejo SECURITY CONTROL ASSESSOR-C Ot E46 UNSPECIFIED PROTEIN-CALORIE MALNUTRITION 09/06/2016 NEW, BEENA Alejo SECURITY CONTROL ASSESSOR-C Ot E55.9 VITAMIN D DEFICIENCY, UNSPECIFIED 09/06/2016 NEW, BEENA MaruSheree SECURITY CONTROL ASSESSOR-C Ot E78.5 HYPERLIPIDEMIA, UNSPECIFIED 09/06/2016 NEW, BEENA MaruSheree SECURITY CONTROL ASSESSOR-C Ot E87.5 HYPERKALEMIA 09/06/2016 NEW, BEENA MaruSheree SECURITY CONTROL ASSESSOR-C Ot 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, W S 09/06/2016 NEW, BEENA MaruSheree SECURITY CONTROL ASSESSOR-C Ot I25.10 ATHSCL HEART DISEASE OF [place] CORONARY 09/06/2016 NEW, BEENA Alejo SECURITY CONTROL ASSESSOR-C Ot M48.02 SPINAL STENOSIS, CERVICAL REGION 09/06/2016 NEW, BEENA MaruSheree SECURITY CONTROL ASSESSOR-C Ot N18.4 CHRONIC KIDNEY DISEASE, STAGE 4 (SEVERE) 09/06/2016 NEW, BEENA Alejo SECURITY CONTROL ASSESSOR-C Ot 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 09/06/2016 NEW, BEENA MaruSheree SECURITY CONTROL ASSESSOR-C Ot R80.9 PROTEINURIA, UNSPECIFIED 03/21/2017 NEW, BEENA Alejo SECURITY CONTROL ASSESSOR-C Ot 244.9 HYPOTHYROIDISM NOS 03/21/2017 NEW, BEENA Alejo SECURITY CONTROL ASSESSOR-C Ot 250.40 DIAB W RENAL MANIFEST, TYPE II OR UNSPEC 03/21/2017 NEW, BEENA Maru. SECURITY CONTROL ASSESSOR-C Ot 263.9 PROTEIN-ANA MALNUTR NOS 03/21/2017 NEW, BEENA Maru. SECURITY CONTROL ASSESSOR-C Ot 268.9 VITAMIN D DEFICIENCY NOS 03/21/2017 NEW, BEENA MaruSheree SECURITY CONTROL ASSESSOR-C Ot 272.4 HYPERLIPIDEMIA NEC/NOS 03/21/2017 NEW, BEENA Mahoney. 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 SECURITY CONTROL ASSESSOR-C Ot 414.00 CORON ATHEROSCLER NOS TYPE VESSEL, NATIV 03/21/2017 NEW, BEENA Alejo SECURITY CONTROL ASSESSOR-C Ot 585.3 CHRONIC KIDNEY DISEASE, STAGE III (MODER 03/21/2017 NEW, BEENA Alejo SECURITY CONTROL ASSESSOR-C Ot 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 03/21/2017 NEW, BEENA Alejo SECURITY CONTROL ASSESSOR-C Ot 723.0 CERVICAL SPINAL STENOSIS 03/21/2017 NEW, BEENA MaruSheree SECURITY CONTROL ASSESSOR-C Ot 791.0 PROTEINURIA 03/21/2017 NEW, BEENA MaruSheree SECURITY CONTROL ASSESSOR-C Ot 796.4 ABN CLINICAL FINDING NEC 03/21/2017 NEW, BEENA MaruSheree SECURITY CONTROL ASSESSOR-C Ot D63.1 ANEMIA IN CHRONIC KIDNEY DISEASE 03/21/2017 NEW, BEENA GSheree SECURITY CONTROL ASSESSOR-C Ot D72.819 DECREASED WHITE BLOOD CELL COUNT, UNSPEC 03/21/2017 NEW, BEENA MaruSheree SECURITY CONTROL ASSESSOR-C Ot E03.9 HYPOTHYROIDISM, UNSPECIFIED 03/21/2017 NEW, BEENA MaruSheree SECURITY CONTROL ASSESSOR-C Ot E11.29 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 03/21/2017 NEW, BEENA aMruSheree SECURITY CONTROL ASSESSOR-C Ot E46 UNSPECIFIED PROTEIN-CALORIE MALNUTRITION 03/21/2017 NEW, BEENA MaruSheree SECURITY CONTROL ASSESSOR-C Ot E55.9 VITAMIN D DEFICIENCY, UNSPECIFIED 03/21/2017 NEW, BEENA MaruSheree SECURITY CONTROL ASSESSOR-C Ot E78.5 HYPERLIPIDEMIA, UNSPECIFIED 03/21/2017 NEW, BEENA MaruSheree SECURITY CONTROL ASSESSOR-C Ot E87.5 HYPERKALEMIA 03/21/2017 NEW, BEENA MaruSheree SECURITY CONTROL ASSESSOR-C Ot 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, W S 03/21/2017 NEW, BEENA MaruSheree SECURITY CONTROL ASSESSOR-C Ot I25.10 ATHSCL HEART DISEASE OF [place] CORONARY 03/21/2017 NEW, BEENA MaruSheree SECURITY CONTROL ASSESSOR-C Ot M48.02 SPINAL STENOSIS, CERVICAL REGION 03/21/2017 NEW, BEENA MaruSheree SECURITY CONTROL ASSESSOR-C Ot N18.4 CHRONIC KIDNEY DISEASE, STAGE 4 (SEVERE) 03/21/2017 NEW, BEENA MaruSheree SECURITY CONTROL ASSESSOR-C Ot R80.9 PROTEINURIA, UNSPECIFIED 03/21/2017 NEW, BEENA MaruSheree SECURITY CONTROL ASSESSOR-C Ot D63.1 ANEMIA IN CHRONIC KIDNEY DISEASE 03/21/2017 NEW, BEENA MaruSheree SECURITY CONTROL ASSESSOR-C Ot D72.819 DECREASED WHITE BLOOD CELL COUNT, UNSPEC 03/21/2017 NEW, BEENA MaruSheree SECURITY CONTROL ASSESSOR-C Ot E03.9 HYPOTHYROIDISM, UNSPECIFIED 03/21/2017 NEW, BEENA Alejo SECURITY CONTROL ASSESSOR-C Ot E11.22 TYPE 2 DIABETES MELLITUS W [facility]OSPICE COMMUNITY LIAISON 03/21/2017 NEW, BEENA Alejo SECURITY CONTROL ASSESSOR-C Ot E46 UNSPECIFIED PROTEIN-CALORIE MALNUTRITION 03/21/2017 NEW, BEENA MahoneySheree SECURITY CONTROL ASSESSOR-C Ot E55.9 VITAMIN D DEFICIENCY, UNSPECIFIED 03/21/2017 NEW, BEENA Alejo SECURITY CONTROL ASSESSOR-C Ot E78.5 HYPERLIPIDEMIA, UNSPECIFIED 03/21/2017 NEW, BEENA Alejo SECURITY CONTROL ASSESSOR-C Ot E87.5 HYPERKALEMIA 03/21/2017 NEW, BEENA Alejo SECURITY CONTROL ASSESSOR-C Ot 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, W S 03/21/2017 NEW, BEENA MahoneySheree SECURITY CONTROL ASSESSOR-C Ot I25.10 ATHSCL HEART DISEASE OF [place] CORONARY 03/21/2017 NEW, BEENA MahoneySheree SECURITY CONTROL ASSESSOR-C Ot M48.02 SPINAL STENOSIS, CERVICAL REGION 03/21/2017 NEW, BEENA MahoneySheree SECURITY CONTROL ASSESSOR-C Ot 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 03/21/2017 NEW, BEENA MahoneySheree SECURITY CONTROL ASSESSOR-C Ot R80.9 PROTEINURIA, UNSPECIFIED 03/21/2017 NEW, BEENA MahoneySheree SECURITY CONTROL ASSESSOR-C Ot D63.1 ANEMIA IN CHRONIC KIDNEY DISEASE 03/21/2017 NEW, BEENA MahoneySheree SECURITY CONTROL ASSESSOR-C Ot D72.819 DECREASED WHITE BLOOD CELL COUNT, UNSPEC 03/21/2017 NEW, BEENA MahoneySheree SECURITY CONTROL ASSESSOR-C Ot E03.9 HYPOTHYROIDISM, UNSPECIFIED 03/21/2017 NEW, BEENA Alejo SECURITY CONTROL ASSESSOR-C Ot E11.22 TYPE 2 DIABETES MELLITUS W DIAB[facility] HOSPICE COMMUNITY LIAISON 03/21/2017 NEW, BEENA MahoneySheree SECURITY CONTROL ASSESSOR-C Ot E46 UNSPECIFIED PROTEIN-CALORIE MALNUTRITION 03/21/2017 NEW, BEENA MahoneySheree SECURITY CONTROL ASSESSOR-C Ot E55.9 VITAMIN D DEFICIENCY, UNSPECIFIED 03/21/2017 NEW, BEENA MahoneySheree SECURITY CONTROL ASSESSOR-C Ot E78.5 HYPERLIPIDEMIA, UNSPECIFIED 03/21/2017 NEW, BEENA MahoneySheree SECURITY CONTROL ASSESSOR-C Ot E87.5 HYPERKALEMIA 03/21/2017 NEW, BEENA MahoneySheree SECURITY CONTROL ASSESSOR-C Ot 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, W S 03/21/2017 NEW, BEENA MahoneySheree SECURITY CONTROL ASSESSOR-C Ot I25.10 ATHSCL HEART DISEASE OF [place] CORONARY 03/21/2017 NEW, BEENA MahoneySheree SECURITY CONTROL ASSESSOR-C Ot M48.02 SPINAL STENOSIS, CERVICAL REGION 03/21/2017 NEW, BEENA MahoneySheree SECURITY CONTROL ASSESSOR-C Ot N18.4 CHRONIC KIDNEY DISEASE, STAGE 4 (SEVERE) 03/21/2017 NEW, BEENA MahoneySheree SECURITY CONTROL ASSESSOR-C Ot 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 03/21/2017 NEW, BEENA Alejo SECURITY CONTROL ASSESSOR-C Ot R80.9 PROTEINURIA, UNSPECIFIED 03/21/2017 NEW, BEENA Alejo SECURITY CONTROL ASSESSOR-C Ot D63.1 ANEMIA IN CHRONIC KIDNEY DISEASE 03/21/2017 NEW, BEENA Alejo SECURITY CONTROL ASSESSOR-C Ot D72.819 DECREASED WHITE BLOOD CELL COUNT, UNSPEC 03/21/2017 NEW, BEENA GSheree SECURITY CONTROL ASSESSOR-C Ot E03.9 HYPOTHYROIDISM, UNSPECIFIED 03/21/2017 NEW, BEENA GSheree SECURITY CONTROL ASSESSOR-C Ot E11.29 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 03/21/2017 NEW, BEENA MaruSheree SECURITY CONTROL ASSESSOR-C Ot E46 UNSPECIFIED PROTEIN-CALORIE MALNUTRITION 03/21/2017 NEW, BEENA MahoneySheree SECURITY CONTROL ASSESSOR-C Ot E55.9 VITAMIN D DEFICIENCY, UNSPECIFIED 03/21/2017 NEW, BEENA GSheree SECURITY CONTROL ASSESSOR-C Ot E78.5 HYPERLIPIDEMIA, UNSPECIFIED 03/21/2017 NEW, BEENA MahoneySheree SECURITY CONTROL ASSESSOR-C Ot E87.5 HYPERKALEMIA 03/21/2017 NEW, BEENA MahoneySheree SECURITY CONTROL ASSESSOR-C Ot 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, W S 03/21/2017 NEW, BEENA MahoneySheree SECURITY CONTROL ASSESSOR-C Ot I25.10 ATHSCL HEART DISEASE OF [place] CORONARY 03/21/2017 NEW, BEENA MahoneySheree SECURITY CONTROL ASSESSOR-C Ot M48.02 SPINAL STENOSIS, CERVICAL REGION 03/21/2017 NEW, BEENA MaruSheree SECURITY CONTROL ASSESSOR-C Ot N18.4 CHRONIC KIDNEY DISEASE, STAGE 4 (SEVERE) 03/21/2017 NEW, BEENA GSheree SECURITY CONTROL ASSESSOR-C Ot 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 03/21/2017 NEW, BEENA MaruSheree SECURITY CONTROL ASSESSOR-C Ot R80.9 PROTEINURIA, UNSPECIFIED 03/31/2017 NEW, BEENA MaruSheree SECURITY CONTROL ASSESSOR-C Ot 244.9 HYPOTHYROIDISM NOS 03/31/2017 NEW, BEENA MaruSheree SECURITY CONTROL ASSESSOR-C Ot 250.40 DIAB W RENAL MANIFEST, TYPE II OR UNSPEC 03/31/2017 NEW, BEENA MaruSheree SECURITY CONTROL ASSESSOR-C Ot 263.9 PROTEIN-ANA MALNUTR NOS 03/31/2017 NEW, BEENA MaruSheree SECURITY CONTROL ASSESSOR-C Ot 268.9 VITAMIN D DEFICIENCY NOS 03/31/2017 NEW, BEENA Alejo SECURITY CONTROL ASSESSOR-C Ot 272.4 HYPERLIPIDEMIA NEC/NOS 03/31/2017 NEW, BEENA Alejo SECURITY CONTROL ASSESSOR-C Ot 276.7 HYPERPOTASSEMIA 03/31/2017 NEW, BEENA Alejo SECURITY CONTROL ASSESSOR-C Ot 285.21 ANEMIA IN CHRONIC KIDNEY DISEASE 03/31/2017 NEW, BEENA Alejo SECURITY CONTROL ASSESSOR-C Ot 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, BENIGN, 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 03/31/2017 NEW, BEENA Alejo SECURITY CONTROL ASSESSOR-C Ot 414.00 CORON ATHEROSCLER NOS TYPE VESSEL, NATIV 03/31/2017 NEW, BEENA Alejo SECURITY CONTROL ASSESSOR-C Ot 585.3 CHRONIC KIDNEY DISEASE, STAGE III (MODER 03/31/2017 NEW, BEENA Aljeo SECURITY CONTROL ASSESSOR-C Ot 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 03/31/2017 NEW, BEENA Alejo SECURITY CONTROL ASSESSOR-C Ot 723.0 CERVICAL SPINAL STENOSIS 03/31/2017 NEW, BEENA Alejo SECURITY CONTROL ASSESSOR-C Ot 791.0 PROTEINURIA 03/31/2017 NEW, BEENA Alejo SECURITY CONTROL ASSESSOR-C Ot 796.4 ABN CLINICAL FINDING NEC 03/31/2017 NEW, BEENA Alejo SECURITY CONTROL ASSESSOR-C Ot D63.1 ANEMIA IN CHRONIC KIDNEY DISEASE 03/31/2017 NEW, BEENA Alejo SECURITY CONTROL ASSESSOR-C Ot D72.819 DECREASED WHITE BLOOD CELL COUNT, UNSPEC 03/31/2017 NEW, BEENA Alejo SECURITY CONTROL ASSESSOR-C Ot E03.9 HYPOTHYROIDISM, UNSPECIFIED 03/31/2017 NEW, BEENA Alejo SECURITY CONTROL ASSESSOR-C Ot E11.29 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 03/31/2017 NEW, BEENA Alejo SECURITY CONTROL ASSESSOR-C Ot E46 UNSPECIFIED PROTEIN-CALORIE MALNUTRITION 03/31/2017 NEW, BEENA Alejo SECURITY CONTROL ASSESSOR-C Ot E55.9 VITAMIN D DEFICIENCY, UNSPECIFIED 03/31/2017 NEW, BEENA Alejo SECURITY CONTROL ASSESSOR-C Ot E78.5 HYPERLIPIDEMIA, UNSPECIFIED 03/31/2017 NEW, BEENA Alejo SECURITY CONTROL ASSESSOR-C Ot E87.5 HYPERKALEMIA 03/31/2017 NEW, BEENA Alejo SECURITY CONTROL ASSESSOR-C Ot 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819 DECREASED WHITE BLOOD CELL COUNT, UNSPEC 03/31/2017 NEW, BEENA MaruSheree SECURITY CONTROL ASSESSOR-C Ot E03.9 HYPOTHYROIDISM, UNSPECIFIED 03/31/2017 NEW, BEENA Alejo SECURITY CONTROL ASSESSOR-C Ot E11.22 TYPE 2 DIABETES MELLITUS W DIABETIC HOSPICE COMMUNITY LIAISON 03/31/2017 NEW, BEENA Alejo SECURITY CONTROL ASSESSOR-C Ot E46 UNSPECIFIED PROTEIN-CALORIE MALNUTRITION 03/31/2017 NEW, BEENA MaruSheree SECURITY CONTROL ASSESSOR-C Ot E55.9 VITAMIN D DEFICIENCY, UNSPECIFIED 03/31/2017 NEW, BEENA Alejo SECURITY CONTROL ASSESSOR-C Ot E78.5 HYPERLIPIDEMIA, UNSPECIFIED 03/31/2017 NEW, BEENA MaruSheree SECURITY CONTROL ASSESSOR-C Ot E87.5 HYPERKALEMIA 03/31/2017 NEW, BEENA MaruSheree SECURITY CONTROL ASSESSOR-C Ot 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, W S 03/31/2017 NEW, BEENA MaruSheree SECURITY CONTROL ASSESSOR-C Ot I25.10 ATHSCL HEART DISEASE OF [place] CORONARY 03/31/2017 NEW, BEENA Alejo SECURITY CONTROL ASSESSOR-C Ot M48.02 SPINAL STENOSIS, CERVICAL REGION 03/31/2017 NEW, BEENA Alejo SECURITY CONTROL ASSESSOR-C Ot 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 03/31/2017 NEW, BEENA Alejo SECURITY CONTROL ASSESSOR-C Ot R80.9 PROTEINURIA, UNSPECIFIED 03/31/2017 NEW, BEENA MaruSheree SECURITY CONTROL ASSESSOR-C Ot D63.1 ANEMIA IN CHRONIC KIDNEY DISEASE 03/31/2017 NEW, BEENA GSheree SECURITY CONTROL ASSESSOR-C Ot D72.819 DECREASED WHITE BLOOD CELL COUNT, UNSPEC 03/31/2017 NEW, BEENA Alejo SECURITY CONTROL ASSESSOR-C Ot E03.9 HYPOTHYROIDISM, UNSPECIFIED 03/31/2017 NEW, BEENA Alejo SECURITY CONTROL ASSESSOR-C Ot E11.22 TYPE 2 DIABETES MELLITUS W DIABETIC HOSPICE COMMUNITY LIAISON 03/31/2017 NEW, BEENA Alejo SECURITY CONTROL ASSESSOR-C Ot E46 UNSPECIFIED PROTEIN-CALORIE MALNUTRITION 03/31/2017 NEW, BEENA Alejo SECURITY CONTROL ASSESSOR-C Ot E55.9 VITAMIN D DEFICIENCY, UNSPECIFIED 03/31/2017 NEW, BEENA Alejo SECURITY CONTROL ASSESSOR-C Ot E78.5 HYPERLIPIDEMIA, UNSPECIFIED 03/31/2017 NEW, BEENA Alejo SECURITY CONTROL ASSESSOR-C Ot E87.5 HYPERKALEMIA 03/31/2017 NEW, BEENA Alejo SECURITY CONTROL ASSESSOR-C Ot 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, W S 03/31/2017 NEW, BEENA Alejo SECURITY CONTROL ASSESSOR-C Ot I25.10 ATHSCL HEART DISEASE OF [place] CORONARY 03/31/2017 NEW, BEENA Alejo SECURITY CONTROL ASSESSOR-C Ot M48.02 SPINAL STENOSIS, CERVICAL REGION 03/31/2017 NEW, BEENA Alejo SECURITY CONTROL ASSESSOR-C Ot N18.4 CHRONIC KIDNEY DISEASE, STAGE 4 (SEVERE) 03/31/2017 NEW, BEENA Alejo SECURITY CONTROL ASSESSOR-C Ot 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 03/31/2017 NEW, BEENA Alejo SECURITY CONTROL ASSESSOR-C Ot R80.9 PROTEINURIA, UNSPECIFIED 03/31/2017 NEW, BEENA Alejo SECURITY CONTROL ASSESSOR-C Ot D63.1 ANEMIA IN CHRONIC KIDNEY DISEASE 03/31/2017 NEW, BEENA Alejo SECURITY CONTROL ASSESSOR-C Ot D72.819 DECREASED WHITE BLOOD CELL COUNT, UNSPEC 03/31/2017 NEW, BEENA Alejo SECURITY CONTROL ASSESSOR-C Ot E03.9 HYPOTHYROIDISM, UNSPECIFIED 03/31/2017 NEW, BEENA Alejo SECURITY CONTROL ASSESSOR-C Ot E11.29 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 03/31/2017 NEW, BEENA Alejo SECURITY CONTROL ASSESSOR-C Ot E46 UNSPECIFIED PROTEIN-CALORIE MALNUTRITION 03/31/2017 NEW, BEENA Alejo SECURITY CONTROL ASSESSOR-C Ot E55.9 VITAMIN D DEFICIENCY, UNSPECIFIED 03/31/2017 NEW, BEENA Alejo SECURITY CONTROL ASSESSOR-C Ot E78.5 HYPERLIPIDEMIA, UNSPECIFIED 03/31/2017 NEW, BEENA Alejo SECURITY CONTROL ASSESSOR-C Ot E87.5 HYPERKALEMIA 03/31/2017 NEW, BEENA Alejo SECURITY CONTROL ASSESSOR-C Ot 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, W S 03/31/2017 NEW, BEENA Alejo SECURITY CONTROL ASSESSOR-C Ot I25.10 ATHSCL HEART DISEASE OF [place] CORONARY 03/31/2017 NEW, BEENA Alejo SECURITY CONTROL ASSESSOR-C Ot M48.02 SPINAL STENOSIS, CERVICAL REGION 03/31/2017 NEW, BEENA Alejo SECURITY CONTROL ASSESSOR-C Ot N18.4 CHRONIC KIDNEY DISEASE, STAGE 4 (SEVERE) 03/31/2017 NEW, BEENA Alejo SECURITY CONTROL ASSESSOR-C Ot 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 03/31/2017 NEW, BEENA Alejo SECURITY CONTROL ASSESSOR-C Ot R80.9 PROTEINURIA, UNSPECIFIED 03/31/2017 NEW, BEENA Alejo SECURITY CONTROL ASSESSOR-C Ot E11.29 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 03/31/2017 NEW, BEENA Alejo SECURITY CONTROL ASSESSOR-C Ot N18.4 CHRONIC KIDNEY DISEASE, STAGE 4 (SEVERE) 04/01/2017 NEW, BEENA MahoneySheree SECURITY CONTROL ASSESSOR-C Ot D63.1 ANEMIA IN CHRONIC KIDNEY DISEASE 04/01/2017 NEW, BEENA Alejo SECURITY CONTROL ASSESSOR-C Ot D72.819 DECREASED WHITE BLOOD CELL COUNT, UNSPEC 04/01/2017 NEW, BEENA GSheree SECURITY CONTROL ASSESSOR-C Ot E03.9 HYPOTHYROIDISM, UNSPECIFIED 04/01/2017 NEW, BEENA MahoneySheree SECURITY CONTROL ASSESSOR-C Ot E11.22 TYPE 2 DIABETES MELLITUS W DIABETIC HOSPICE COMMUNITY LIAISON 04/01/2017 NEW, BEENA MahoneySheree SECURITY CONTROL ASSESSOR-C Ot E46 UNSPECIFIED PROTEIN-CALORIE MALNUTRITION 04/01/2017 NEW, BEENA Alejo SECURITY CONTROL ASSESSOR-C Ot E55.9 VITAMIN D DEFICIENCY, UNSPECIFIED 04/01/2017 NEW, BEENA Alejo SECURITY CONTROL ASSESSOR-C Ot E78.5 HYPERLIPIDEMIA, UNSPECIFIED 04/01/2017 NEW, BEENA Alejo SECURITY CONTROL ASSESSOR-C Ot E87.5 HYPERKALEMIA 04/01/2017 NEW, BEENA MahoneySheree SECURITY CONTROL ASSESSOR-C Ot 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, W S 04/01/2017 NEW, BEENA MahoneySheree SECURITY CONTROL ASSESSOR-C Ot I25.10 ATHSCL HEART DISEASE OF [place] CORONARY 04/01/2017 NEW, BEENA MahoneySheree SECURITY CONTROL ASSESSOR-C Ot M48.02 SPINAL STENOSIS, CERVICAL REGION 04/01/2017 NEW, BEENA Alejo SECURITY CONTROL ASSESSOR-C Ot N18.4 CHRONIC KIDNEY DISEASE, STAGE 4 (SEVERE) 04/01/2017 NEW, BEENA Alejo SECURITY CONTROL ASSESSOR-C Ot 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 04/01/2017 NEW, BEENA Alejo SECURITY CONTROL ASSESSOR-C Ot R80.9 PROTEINURIA, UNSPECIFIED 04/23/2017 NEW, BEENA Alejo SECURITY CONTROL ASSESSOR-C Ot D63.1 ANEMIA IN CHRONIC KIDNEY DISEASE 04/23/2017 NEW, BEENA Alejo SECURITY CONTROL ASSESSOR-C Ot D72.819 DECREASED WHITE BLOOD CELL COUNT, UNSPEC 04/23/2017 NEW, BEENA Alejo SECURITY CONTROL ASSESSOR-C Ot E03.9 HYPOTHYROIDISM, UNSPECIFIED 04/23/2017 NEW, BEENA Alejo SECURITY CONTROL ASSESSOR-C Ot E11.22 TYPE 2 DIABETES MELLITUS W DIABETIC HOSPICE COMMUNITY LIAISON 04/23/2017 NEW, BEENA Alejo SECURITY CONTROL ASSESSOR-C Ot E46 UNSPECIFIED PROTEIN-CALORIE MALNUTRITION 04/23/2017 NEW, BEENA Alejo SECURITY CONTROL ASSESSOR-C Ot E55.9 VITAMIN D DEFICIENCY, UNSPECIFIED 04/23/2017 NEW, BEENA Alejo SECURITY CONTROL ASSESSOR-C Ot E78.5 HYPERLIPIDEMIA, UNSPECIFIED 04/23/2017 NEW, BEENA Alejo SECURITY CONTROL ASSESSOR-C Ot E87.5 HYPERKALEMIA 04/23/2017 NEW, BEENA Alejo SECURITY CONTROL ASSESSOR-C Ot 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 SECURITY CONTROL ASSESSOR-C Ot R80.9 PROTEINURIA, UNSPECIFIED 01/06/2018 NEW, BEENA Alejo SECURITY CONTROL ASSESSOR-C Ot D63.1 ANEMIA IN CHRONIC KIDNEY DISEASE 01/06/2018 NEW, BEENA Alejo SECURITY CONTROL ASSESSOR-C Ot D72.819 DECREASED WHITE BLOOD CELL COUNT, UNSPEC 01/06/2018 NEW, BEENA Alejo SECURITY CONTROL ASSESSOR-C Ot E03.9 HYPOTHYROIDISM, UNSPECIFIED 01/06/2018 NEW, BEENA Alejo SECURITY CONTROL ASSESSOR-C Ot E11.29 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 01/06/2018 NEW, BEENA Melo SECURITY CONTROL ASSESSOR-C Ot E46 UNSPECIFIED PROTEIN-CALORIE MALNUTRITION 01/06/2018 NEW, BEENA MahoneySheree SECURITY CONTROL ASSESSOR-C Ot E55.9 VITAMIN D DEFICIENCY, UNSPECIFIED 01/06/2018 NEW, BEENA Alejo SECURITY CONTROL ASSESSOR-C Ot E78.5 HYPERLIPIDEMIA, UNSPECIFIED 01/06/2018 NEW, BEENA Alejo SECURITY CONTROL ASSESSOR-C Ot E87.5 HYPERKALEMIA 01/06/2018 NEW, BEENA Alejo SECURITY CONTROL ASSESSOR-C Ot 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, W S 01/06/2018 NEW, BEENA MahoneySheree SECURITY CONTROL ASSESSOR-C Ot I25.10 ATHSCL HEART DISEASE OF [place] CORONARY 01/06/2018 NEW, BEENA Alejo SECURITY CONTROL ASSESSOR-C Ot M48.02 SPINAL STENOSIS, CERVICAL REGION 01/06/2018 NEW, BEENA Alejo SECURITY CONTROL ASSESSOR-C Ot N18.4 CHRONIC KIDNEY DISEASE, STAGE 4 (SEVERE) 01/06/2018 NEW, BEENA MahoneySheree SECURITY CONTROL ASSESSOR-C Ot 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 01/06/2018 NEW, BEENA Alejo SECURITY CONTROL ASSESSOR-C Ot R80.9 PROTEINURIA, UNSPECIFIED 01/06/2018 NEW, BEENA Alejo SECURITY CONTROL ASSESSOR-C Ot R82.90 UNSPECIFIED ABNORMAL FINDINGS IN URINE 03/09/2018 W 250.00 DIABETES MELLITUS WITHOUT MENTION OF COMPLICATION, TYPE II OR UNSPECIFIED TYPE, NOT STATED UNCONTROLLED 03/09/2018 W 272.4 OTHER AND UNSPECIFIED HYPERLIPIDEMIA 03/09/2018 W 410.71 03/09/2018 W 414.01 CORONARY ATHEROSCLEROSIS OF [place] CORONARY ARTERY 03/09/2018 W 729.89 OTHER MUSCULOSKELETAL SYMPTOMS REFERABLE TO LIMBS 03/09/2018 W 780.97 ALTERED MENTAL STATUS 03/09/2018 W E11.9 TYPE 2 DIABETES MELLITUS WITHOUT COMPLICATIONS 03/09/2018 W E78.5 HYPERLIPIDEMIA , UNSPECIFIED 03/09/2018 W I21.4 NON-ST ELEVATION (NSTEMI) MYOCARDIAL INFARCTION 03/09/2018 W I25.10 ATHSCL HEART DISEASE OF [place] CORONARY ARTERY W/O ANG PCTRS 03/09/2018 W [...] culture - 03/31/17 14:20 Bacterial urine culture [id number] NRG COLONY COUNT 10,000/ML - 100,000/ML NRG [...] at 01:40 on 03/09/2018 CULTURE SOURCE cath Capillary blood glucose measurement by glucometer (mass/volume) - 03/11/18 21: 29 Capillary blood glucose measurement by glucometer (mass/volume) 227 mg/dL 70-110 Capillary blood glucose measurement by glucometer (mass/volume) - 03/12/18 05: 18 Capillary blood glucose measurement by glucometer (mass/volume) 93 mg/dL 70-110 Complete blood count (CBC) with automated white blood cell (WBC) differential - 03/12/18 05:20 Blood leukocytes automated count (number/volume) 5.8 10*3/uL 4.3-11.0 Blood erythrocytes automated count (number/volume) 4.15 10*6/uL 4.35-5.85 Venous blood hemoglobin measurement (mass/volume) 12.2 g/dL 11.5-16.0 Blood hematocrit (volume fraction) 37 % 35-52 Automated erythrocyte mean corpuscular volume 88 [foz_us] 80-99 Automated erythrocyte mean corpuscular hemoglobin (mass per erythrocyte) 29 pg 25-34 Automated erythrocyte mean corpuscular hemoglobin concentration measurement ( mass/volume) 33 g/dL 32-36 Automated erythrocyte distribution width ratio 14.1 % 10.0-14.5 Automated blood platelet count (count/volume) 153 10*3/uL 130-400 Automated blood platelet mean volume measurement 11.6 [foz_us] 7.4-10.4 Automated blood neutrophils/100 leukocytes 62 % 42-75 Automated blood lymphocytes/100 leukocytes 25 % 12-44 Blood monocytes/100 leukocytes 11 % 0-12 Automated blood eosinophils/100 leukocytes 1 % 0-10 Automated blood basophils/100 leukocytes 1 % 0-10 Blood neutrophils automated count (number/volume) 3.6 10*3 1.8-7.8 Blood lymphocytes automated count (number/volume) 1.4 10*3 1.0-4.0 Blood monocytes automated count (number/volume) 0.6 10*3 0.0-1.0 Automated eosinophil count 0.1 10*3/uL 0.0-0.3 Automated blood basophil count (count/volume) 0.0 10*3/uL 0.0-0.1 Comprehensive metabolic panel - 03/12/18 05:20 Serum or plasma sodium measurement (moles/volume) 137 mmol/L 135-145 Serum or plasma potassium measurement (moles/volume) 4.3 mmol/L 3.6-5.0 Serum or plasma chloride measurement (moles/volume) 103 mmol/L 98-107 Carbon dioxide 22 mmol/L 21-32 Serum or plasma anion gap determination (moles/volume) 12 mmol/L 5-14 Serum or plasma urea nitrogen measurement (mass/volume) 21 mg/dL 7-18 Serum or plasma creatinine measurement (mass/volume) 1.14 mg/dL 0.60-1.30 Serum or plasma urea nitrogen/creatinine mass ratio 18 NRG Serum or plasma creatinine measurement with calculation of estimated glomerular filtration rate 46 NRG Serum or plasma glucose measurement (mass/volume) 95 mg/dL 70-105 Serum or plasma calcium measurement (mass/volume) 8.9 mg/dL 8.5-10.1 Serum or plasma total bilirubin measurement (mass/volume) 0.7 mg/dL 0.1-1.0 Serum or plasma alkaline phosphatase measurement (enzymatic activity/volume) 72 U/L 40-136 Serum or plasma aspartate aminotransferase measurement (enzymatic activity/ volume) 27 U/L 5-34 Serum or plasma alanine aminotransferase measurement (enzymatic activity/volume ) 13 U/L 0-55 Serum or plasma protein measurement (mass/volume) 5.7 g/dL 6.4-8.2 Serum or plasma albumin measurement (mass/volume) 3.4 g/dL 3.2-4.5 CALCIUM CORRECTED 9.4 mg/dL 8.5-10.1 THYROID STIMULATING HORMONE - 03/12/18 05:20 THYROID STIMULATING HORMONE 7.66 u[iU]/mL 0.35-4.94 Capillary blood glucose measurement by glucometer (mass/volume) - 03/12/18 11: 23 Capillary blood glucose measurement by glucometer (mass/volume) 182 mg/dL 70-110 Encounters ACCT No. Visit Date/Time Discharge Status Pt. Type Provider Facility Loc./Unit Complaint [id number] 12/16/2017 14:37:00 12/16/2017 23:59:59 CLS Outpatient BEENA DANIELSON SECURITY CONTROL ASSESSOR-C [facility] N18.4,E87.5 [id number] 03/31/2017 14:03:00 03/31/2017 23:59:59 CLS Outpatient BEENA DANIELSON SECURITY CONTROL ASSESSOR-C [facility] N18.4,E87.5 [id number] 08/16/2016 09:49:00 08/16/2016 23:59:59 CLS Outpatient BEENA DANIELSON SECURITY CONTROL ASSESSOR-C [facility] N18.4 [id number] 06/26/2016 00:13:00 06/26/2016 23:59:59 CLS Preadmit BEENA DANIELSON SECURITY CONTROL ASSESSOR-C [facility] IRON DEFICIENCY ANEMIA [id number] 04/05/2016 11:04:00 06/25/2016 00:01:00 DIS Outpatient BEENA DANIELSON SECURITY CONTROL ASSESSOR-C [facility] IRON DEFICIENCY ANEMIA [id number] 12/25/2015 00:09:00 12/25/2015 23:59:59 CLS Preadmit BEENA DANIELSON SECURITY CONTROL ASSESSOR-C [facility] CHRONIC KIDNEY DISEASE [id number] 09/26/2015 10:00:00 12/24/2015 00:01:00 DIS Outpatient BEENA DANIELSON SECURITY CONTROL ASSESSOR-C [facility] CHRONIC KIDNEY DISEASE [id number] 09/25/2015 14:31:00 09/25/2015 23:59:59 CLS Outpatient BEENA DANIELSON SECURITY CONTROL ASSESSOR-C [facility] CHRONIC KIDNEY DISEASE, HYPERKALEMIA [id number] 05/28/2015 17:36:00 05/28/2015 19:48:00 DIS Emergency DONNIE CARLTON APRN [facility] ER SHAKINESS [id number] 03/07/2015 12:52:00 03/07/2015 23:59:59 CLS Outpatient BEENA DANIELSON SECURITY CONTROL ASSESSOR-C [facility] CHRONIC KIDNEY DISEASE [id number] 10/11/2014 09:08:00 10/11/2014 23:59:59 CLS Outpatient BEENA DANIELSON SECURITY CONTROL ASSESSOR-C [facility] CKD STAGE III, HYPERTENSIVE HEART,DM,ANEMIA IN CKD [id number] 10/12/2013 13:28:00 10/12/2013 15:54:00 DIS Emergency BEENA BRIDGES DO [facility] ER FEET/LEGS SWELLING [id number] 03/11/2018 17:00:00 ACT Inpatient TRANERVIN VEGA DO [facility] IRF CVA [id number] 10/11/2014 09:04:00 Document Registration [id number] 01/30/2011 14:55:00 Document Registration [id number] 10/29/2010 05:49:00 Document Registration [id number] 10/26/2010 13:14:00 Document Registration [id number] 08/15/2010 05:38:00 Document Registration [id number] 08/10/2010 08:58:00 Document Registration [id number] 03/15/2016 13:05:00 Document Registration [id number] 2018 16:40:00 2018 23:59:59 CLS Outpatient [id number] 10/11/2014 09:12:04 ACT Document Registration [id number] 03/09/2018 01:43:56 Document Registration [id number] 03/09/2018 00:45:19 Document Registration
[2018-03-12] MEDS ORDERED: DOCUSATE SODIUM 100 MG (COLACE) CAP PO PRN (12:00)
[2018-03-12] MEDS ORDERED: ACETAMINOPHEN 500 MG TAB (TYLENOL) PO PRN (12:00)
[2018-03-12] MEDS ORDERED: ONDANSETRON 4 MG/2 ML (SDV) Z0FRAN IVP PRN (12:00)
[2018-03-12] MEDS ORDERED: CALCIUM CARBONATE 500 MG (TUMS) TAB.CHEW PO PRN (12:00)
[2018-03-12 12:16] LABS: BASOPHILS % (AUTO) 0 % (0-10); EOSINOPHILS % (AUTO) 1 % (0-10); HEMATOCRIT 37 % (35-52); HEMOGLOBIN 12.1 G/DL (11.5-16.0); LYMPHOCYTES % (AUTO) 16 % (12-44); MEAN CORPUSCULAR HEMOGLOBIN 29 PG (25-34); MEAN CORPUSCULAR HGB CONC 33 G/DL (32-36); MEAN CORPUSCULAR VOLUME 90 FL (80-99); MEAN PLATELET VOLUME 11.6 FL (7.4-10.4); MONOCYTES # (AUTO) 0.6 X 10^3 (0.0-1.0); MONOCYTES % (AUTO) 10 % (0-12); NEUTROPHILS # (AUTO) 4.3 X 10^3 (1.8-7.8); NEUTROPHILS % (AUTO) 73 % (42-75); PLATELET COUNT 135 10^3/uL (130-400); RED BLOOD COUNT 4.15 10^6/uL (4.35-5.85); WHITE BLOOD COUNT 5.9 10^3/uL (4.3-11.0)
--- NOTE | 2018-03-12 12:25 | Consultation-Cardiology ---
HPI-Cardiology Cardiology Consultation Date of Consultation 03/12/18 Date of Admission Time Seen by Provider: 12:19 Indication: syncope HPI 78 years old lady was admitted to [facility] with acute CVA, had sudden onset right sided weakness. Noted to have ST elevation in V2 on her EKG with elevated troponin. She was given TPA and sent to . On March 10, 2018 and it was reported that she had a small intracranial bleed. No significant mass effect. Treated conservatively. Transferred to the acute rehabilitation for physical therapy, while in physical therapy she had a syncopal episode and became incontinent. Does not recall the event. Not having any chest pain or palpitation. Not able to provide history, patient is somewhat confused, recognized that she had a bypass surgery does not know when it was done or home many bypasses were done, she has been seen and followed by Dr. Barrientos. Patient was transferred to the intensive care unit, upper my evaluation she was laying down in bed, borderline hypotensive. Denied any chest pain, no shortness of breath, still having some weakness and confusion. Home Medications & Allergies Allergies: Coded Allergies: NKANo Known Allergies (Unverified Allergy, Mild, 07/03/08) Home Medication List Reviewed: Yes TRN-Vygqam-Xmpalx Hx Patient Social History Marital Status: Employed/Student: retired Alcohol Use: Denies Use Recreational Drug Use: No Smoking Status: Never a Smoker Recent Hopitalizations: No Physical Abuse Screen: No Sexual Abuse: No Immunizations Up To Date Date of Pneumonia Vaccine: Dec 16, 2016 Date of Influenza Vaccine: Mar 11, 2018 Past Medical History past medical history as described below Family Medical History Significant Family History: Diabetes Family Medical Hx noncontributory to her current condition Review of Systems Constitutional: see HPI, malaise, weakness EENTM: see HPI, no symptoms reported Respiratory: see HPI; No cough, No dyspnea on exertion, No hemoptysis, No orthopnea, No phlegm, No short of breath, No stridor, No wheezing, No other Cardiovascular: see HPI; No chest pain, No edema, No Hx of Intervention, No palpitations; syncope; No vascular heart diseas, No other Gastrointestinal: no symptoms reported, see HPI Genitourinary: no symptoms reported, see HPI Musculoskeletal: see HPI, joint pain, muscle weakness Skin: see HPI Psychiatric/Neurological: No Symptoms Reported, See HPI Reviewed Test Results Reviewed Test Results Lab Laboratory Tests Test 03/12/18 12:00 Range/Units White Blood Count 5.9 4.3-11.0 10^3/uL Red Blood Count 4.15 L 4.35-5.85 10^6/uL Hemoglobin 12.1 11.5-16.0 G/DL Hematocrit 37 35-52 % Mean Corpuscular Volume 90 80-99 FL Mean Corpuscular Hemoglobin 29 25-34 PG Mean Corpuscular Hemoglobin Concent 33 32-36 G/DL Red Cell Distribution Width 14.0 10.0-14.5 % Platelet Count 135 130-400 10^3/uL Mean Platelet Volume 11.6 H 7.4-10.4 FL Neutrophils (%) (Auto) 73 42-75 % Lymphocytes (%) (Auto) 16 12-44 % Monocytes (%) (Auto) 10 0-12 % Eosinophils (%) (Auto) 1 0-10 % Basophils (%) (Auto) 0 0-10 % Neutrophils # (Auto) 4.3 1.8-7.8 X 10^3 Lymphocytes # (Auto) 1.0 1.0-4.0 X 10^3 Monocytes # (Auto) 0.6 0.0-1.0 X 10^3 Eosinophils # (Auto) 0.0 0.0-0.3 10^3/uL Basophils # (Auto) 0.0 0.0-0.1 10^3/uL Physical Exam Vital Signs Vital Signs - First Documented 03/12/18 11:40 Temp 97.4 Pulse 65 Resp 12 B/P (MAP) 107/61 (76) Pulse Ox 100 O2 Delivery Nasal Cannula O2 Flow Rate 3.00 Capillary Refill : Height, Weight, BMI Height: 4'8.00" Weight: 134lbs. 9.0oz. 61.055956qn; 30.2 BMI Method: General Appearance: WD/WN, Mild Distress Eyes: Bilateral Eye Normal Inspection, Bilateral Eye PERRL, Bilateral Eye EOMI HEENT: PERRL/EOMI, TMs Normal, Normal ENT Inspection, Pharynx Normal Neck: Full Range of Motion, Normal Inspection, Non Tender, Supple, Carotid Bruit Respiratory: Chest Non Tender, Lungs Clear, Normal Breath Sounds, No Accessory Muscle Use, No Respiratory Distress Cardiovascular: Regular Rate, Rhythm, No Edema, No JVD, Normal Peripheral Pulses, Systolic Murmur, Gallop/S3 Gastrointestinal: Normal Bowel Sounds, No Organomegaly, No Pulsatile Mass, Non Tender, Soft Back: Normal Inspection, No CVA Tenderness, No Vertebral Tenderness Extremity: Normal Capillary Refill, Normal Inspection, Normal Range of Motion, Non Tender, No Calf Tenderness, No Pedal Edema 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, Motor Weakness, Other (mild confusion) Skin: Normal Color, Warm/Dry Lymphatic: No Adenopathy A/P-Cardiology Admission Diagnosis syncope CVA Coronary artery disease Congestive heart failure, chronic compensated left ventricular systolic dysfunction, ischemic cardiomyopathy Assessment/Plan Syncope, probably hypotensive episode. Blood pressure is better on IV fluid. Continue to monitor at this time. 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 Was receiving physical therapy. Coronary artery disease, non-ST elevation myocardial infarction had elevation in troponin level of 1.5, had ST elevation in V2 with QS in the anterior leads, no reciprocal changes. Conservative management in [facility]. Continue to monitor, history of CABG in the past. Congestive heart failure, chronic compensated left ventricular systolic dysfunction, probably ischemic in nature with ejection fraction reported to be between 35 and 40 percent, continue to monitor fluid status. Hypotension, history of hypertension. Hyperlipidemia, restart Lipitor 40 mg daily and monitor History of permanent pacemaker, atrial paced rhythm on EKG. Hypothyroidism, managed by primary care physician I will restart aspirin 81 mg, Lipitor 40 mg, Zestril 5 mg, stop Coreg and start Toprol-XL 25 mg, monitor tolerance and response JAC MABRY MD Mar 12, 2018 12:25
--- NOTE | 2018-03-12 12:26 | History & Physical ---
History of Present Illness History of Present Illness Reason for visit/HPI CC: Syncopal episode while working with PT in IRF HPI: This is a 78-year-old white female that was just admitted to inpatient rehab at [facility] last evening when she was transported from [facility] after sustaining a stroke with right-sided weakness and aphasia and difficulty communicating. 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 She had an elevated troponin that was treated conservatively by the cardiology service at [facility]. She is working with physical therapy today after I assessed her this morning after eating breakfast when I was called due to an unresponsive episode patient was found down on the physical therapy floor with fecal incontinence and unresponsive. Patient was found to have a low heart rate low blood pressure and through rapid response management she was able to be revived after a lengthy unconscious state and was given IV fluids and sent to the ICU for close monitoring and preparation of continuing inpatient rehab treatment tomorrow. All labs remained stable in addition to CT scan and chest x-ray so it was confirmed that the vasovagal hypovolemic syncopal episode occurred and patient has had a complete recovery. Date of Admission Mar 12, 2018 at 11:30 Date Seen by a Provider: Mar 12, 2018 Time Seen by a Provider: 10:30 I consulted on this patient on 03/12/18 12:25 Attending Physician La Nena Mccullough DO Admitting Physician Pepito Gibson MD Consult Allergies and Home Medications Allergies Coded Allergies: NKANo Known Allergies (Unverified Allergy, Mild, 07/03/08) Home Medications No Active Prescriptions or Reported Meds Patient Home Medication List Home Medication List Reviewed: Yes Past Gazjxuk-Ipcqsl-Gpjjwu Hx Past Med/Social Hx: Reviewed Nursing Past Med/Soc Hx, Reviewed and Corrections made Patient Social History Marrital Status: single Employed/Student: retired Alcohol Use: Denies Use Recreational Drug Use: No Smoking Status: Never a Smoker Physical Abuse Screen: No Sexual Abuse: No Recent Hopitalizations: No Immunizations Up To Date Date of Pneumonia Vaccine: Dec 16, 2016 Date of Influenza Vaccine: Mar 11, 2018 Seasonal Allergies Seasonal Allergies: No Past Medical History Surgeries: Cardiac, CABG, Eye Surgery, Hysterectomy, Orthopedic Currently Using CPAP: No Currently Using BIPAP: No Cardiac: Coronary Artery Disease, High Cholesterol, Hypertension Neurological: Stroke Reproductive: No Sexually Transmitted Disease: No Genitourinary: Renal Failure Gastrointestinal: Chronic Constipation Musculoskeletal: Arthritis Endocrine: Hypothyroidsim, Diabetes, Non-Insulin dep Psychosocial: Depression History of Blood Disorders: No Family History Diabetes Review of Systems Constitutional: see HPI, diaphoresis, dizziness, malaise, weakness EENTM: no symptoms reported Respiratory: no symptoms reported Cardiovascular: no symptoms reported Gastrointestinal: diarrhea, loss of appetite, nausea Genitourinary: no symptoms reported Musculoskeletal: no symptoms reported Skin: no symptoms reported Psychiatric/Neurological: No Symptoms Reported All Other Systems Reviewed Negative Unless Noted: Yes Physical Exam Vital Signs Vital Signs - First Documented 03/12/18 03/12/18 11:40 13:56 Temp 97.4 Pulse 65 Resp 12 B/P (MAP) 107/61 (76) Pulse Ox 100 O2 Delivery Nasal Cannula O2 Flow Rate 3.00 FiO2 32 Capillary Refill : Height, Weight, BMI Height: 4'8.00" Weight: 134lbs. 9.0oz. 61.284665wo; 30.2 BMI Method: General Appearance: WD/WN, Chronically ill, Moderate Distress Eyes: Bilateral Eye Normal Inspection, Bilateral Eye PERRL, Bilateral Eye EOMI HEENT: PERRL/EOMI, TMs Normal, Normal ENT Inspection, Pharynx Normal Neck: Full Range of Motion, Normal Inspection, Non Tender, Supple, Carotid Bruit Respiratory: Chest Non Tender, Lungs Clear, Normal Breath Sounds, No Accessory Muscle Use, No Respiratory Distress Cardiovascular: Regular Rate, Rhythm, No Edema, No Gallop, No JVD, No Murmur, Normal Peripheral Pulses Gastrointestinal: Normal Bowel Sounds, No Organomegaly, No Pulsatile Mass, Non Tender, Soft Back: Normal Inspection, No CVA Tenderness, No Vertebral Tenderness Extremity: Normal Capillary Refill, Normal Inspection, Normal Range of Motion, Non Tender, No Calf Tenderness, No Pedal Edema 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, No Motor/Sensory Deficits, Normal Mood/Affect, Disoriented, Motor Weakness (right UE) Skin: Normal Color, Warm/Dry Lymphatic: No Adenopathy Assessment/Plan Assessment and Plan Problems: Acute syncope due to vasovagal response with hypovolemia requiring observation in ICU overnight (1) Cerebrovascular accident (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 Status: Acute (2) CAD (coronary artery disease) Status: Chronic (3) Pacemaker Status: Chronic (4) Renal insufficiency Status: Chronic (5) Hyperlipidemia Status: Chronic (6) Noncompliance Status: Chronic (7) Disorientation Status: Acute (8) Aphasia Status: Acute (9) Memory deficit Status: Acute (10) Elevated troponin Status: Acute Problems: (1) Syncope and collapse Admission Diagnosis Admission Status: Observation Diagnosis/Problems Diagnosis/Problems (1) Cerebrovascular accident (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 Status: Acute (2) Elevated troponin Status: Acute (3) Disorientation Status: Acute (4) Memory deficit Status: Acute (5) Pacemaker Status: Chronic (6) Aphasia Status: Acute (7) Renal insufficiency Status: Chronic (8) Hyperlipidemia Status: Chronic (9) CAD (coronary artery disease) Status: Chronic (10) Medication side effect Status: Acute LA NENA MCCULLOUGH DO Mar 12, 2018 12:26
[2018-03-12 12:27] LABS: ALBUMIN 3.3 GM/DL (3.2-4.5); BILIRUBIN,TOTAL 0.4 MG/DL (0.1-1.0); CALCIUM 8.7 MG/DL (8.5-10.1); CREATININE SERUM 1.3 MG/DL (0.60-1.30); POTASSIUM 4.9 MMOL/L (3.6-5.0); TOTAL PROTEIN 5.6 GM/DL (6.4-8.2)
[2018-03-12] MEDS ORDERED: LEVOTHYROXINE 25 MCG (LEVOTHROID) TAB PO NR (12:30)
--- NOTE | 2018-03-12 12:32 | Physical Therapy Progress Note ---
Therapy Progress Note Patient will not be seen by PT this afternoon. She was transferred to the ICU due to a change in medical status. Will await new orders. RONAL POTTS PT Mar 12, 2018 12:32
[2018-03-12 12:34] LABS: ABG BASE EXCESS -0.5 MMOL/L (-2.5-2.5); ABG OXYGEN SATURATION 63 % (94-100); ABG PCO2 49 MMHG (35-45); ABG TCO2 26.5 MMOL/L (21.0-31.0)
[2018-03-12 12:38] LABS: ABG PH 7.32 (7.37-7.43); ABG PO2 38 MMHG (79-93); ALLENS TEST YES-POS; INSPIRED O2 3; PATIENT TEMP 97.2; VENTILATOR NO
[2018-03-12] MEDS ORDERED: CATHETER FLUSH 10 ML SYR IV PRN (12:45)
--- NOTE | 2018-03-12 12:52 | Pulmonary Consultation ---
History of Present Illness History of Present Illness Date of Consultation 03/12/18 12:46 Time Seen by Provider: 07:41 Date of Admission Reason for Visit: syncope History of Present Illness 78yo with hx of CAD, acute CVA and ICH from TPA (tx at med) transferred to ICU from rehab unit secondary to acute syncope during PT/OT. Pt also lost control of her stool. PT was treated conservatively while at for small ICH. PT does not recall syncope event. No CP, Palpitations or SOB. CT of head is pending. I am consulted for ICU management. Allergies and Home Medications Allergies Coded Allergies: NKANo Known Allergies (Unverified Allergy, Mild, 07/03/08) Home Medications No Active Prescriptions or Reported Meds Past Rxwhsov-[id number]-Npbnpo Hx Patient Social History Alcohol Use: Denies Use Recreational Drug Use: No Smoking Status: Never a Smoker Recent Foreign Travel: No Contact w/Someone Who Travel: No Recent Infectious Disease Expo: No Recent Hopitalizations: No Immunizations Up To Date Date of Pneumonia Vaccine: Dec 16, 2016 Date of Influenza Vaccine: Mar 11, 2018 Seasonal Allergies Seasonal Allergies: No Past Medical History Surgeries: Yes (Knee surgery bilt) Cardiac, CABG, Eye Surgery, Hysterectomy, Orthopedic Respiratory: No Currently Using CPAP: No Currently Using BIPAP: No Cardiac: Yes (STENTS 20 PACEMAKER) Coronary Artery Disease, High Cholesterol, Hypertension Neurological: Yes Stroke Reproductive Disorders: No Sexually Transmitted Disease: No Genitourinary: Yes Renal Failure Gastrointestinal: Yes Chronic Constipation Musculoskeletal: Yes (nueropathy in feet) Arthritis Endocrine: Yes Hypothyroidsim, Diabetes, Non-Insulin dep HEENT: No Cancer: No Psychosocial: Yes Depression Integumentary: No Blood Disorders: No Family Medical History Diabetes Review of Systems Time Seen by Provider: 12:52 Constitutional: Weakness, Malaise; No: Fever, Chills, Sweats, Other Eyes: Vision change; No: Pain, Conjunctivae inflammation, Eyelid inflammation, Other, Redness ENT: No: Ear pain, Ear discharge, Nose pain, Nose discharge, Nose congestion, Mouth pain, Mouth swelling, Throat pain, Throat swelling, Other Respiratory: Cough, Dry, Shortness of breath, SOB with excertion; No: Wheezing Cardiovascular: No: Chest Pain, Palpitations, Orthopnea, Paroxysmal Noc. Dyspnea, Edema, Lt Headedness, Other Neurological: Weakness Sepsis Event Evaluation Height, Weight, BMI Height: 5'0.00" Weight: 146lbs. 6.0oz. 66.357376zn; 28.6 BMI Method: Exam Exam Vital Signs Date Time Temp Pulse Resp B/P (MAP) Pulse Ox O2 Delivery O2 Flow Rate FiO2 03/12/18 11:40 97.4 65 12 107/61 (76) 100 Nasal Cannula 3.00 Height & Weight Height: 5'0.00" Weight: 146lbs. 6.0oz. 66.637743yy; 28.6 BMI Method: General Appearance: No Apparent Distress, WD/WN HEENT: PERRL/EOMI, TMs Normal, Normal ENT Inspection, Pharynx Normal Neck: Full Range of Motion, Normal Inspection, Non Tender, Supple, Carotid Bruit Respiratory: Chest Non Tender, Lungs Clear, Normal Breath Sounds, No Accessory Muscle Use, No Respiratory Distress Cardiovascular: Regular Rate, Rhythm, No Edema, No JVD, Normal Peripheral Pulses, Systolic Murmur, Gallop/S3 Extremity: Normal Capillary Refill, Normal Inspection, Normal Range of Motion, Non Tender, No Calf Tenderness, No Pedal Edema 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, Motor Weakness, Other (mild confusion) Skin: Normal Color, Warm/Dry Lymphatic: No Adenopathy Results Lab Laboratory Tests 03/12/18 12:00 Assessment/Plan Assessment/Plan Acute syncope while in rehab - probably vasovagal -IVF - 1 liter bolus then 125cc/hr -Check CT of head stat HX of ICH -Was treated at SINCERE KWONG DO Mar 12, 2018 12:52
--- NOTE | 2018-03-12 12:53 | Occ Therapy Progress Note ---
Therapy Progress Note Pt. will not be seen this date due to transfer to ICU. CLAUDIA THOMPSON OT Mar 12, 2018 12:53
--- NOTE | 2018-03-12 12:55 | Diagnostic Imaging Report ---
INDICATION: Syncope Frontal chest obtained at 1241 hrs pm, and is compared with 05/28/2015. There is poststernotomy change with mild cardiomegaly. Pacemaker device is unchanged. There are coronary stents visualized in the right and left coronary systems. There is no acute infiltrate or pneumothorax or pleural fluid. There is a stable calcified granuloma in the right lateral base. IMPRESSION: Cardiomegaly and postop change. Stable calcified granuloma right lateral base. No focal infiltrate or edema. Dictated by: Dictated on workstation # [id number]
--- NOTE | 2018-03-12 13:54 | Diagnostic Imaging Report ---
PROCEDURE: CT head without contrast. TECHNIQUE: Multiple contiguous axial images were obtained through the brain without the use of intravenous contrast. INDICATION: "CVA". Patient had left supratentorial ischemic infarct anteriorly from an outside facility treated with TPA where she developed a small amount of petechial hemorrhage. She now has some vasovagal syncope. No priors. Parenchymal distortion in the high left frontal lobe anteriorly is present. There is some white matter edema with the intervening cortex relatively hyperdense. This would be compatible with evolutionary changes of a known infarct at that level with some chronic or subacute gyriform parenchymal blood products. There is no evidence for hyperdense hematoma or acute blood product. If outside studies become available these should be submitted and an addendum addressing change would be provided upon receipt as based upon this exam vasogenic edema owing to other underlying lesion such as mass could not be confidently excluded. There is no shift nor herniation. There is no hydrocephalus. Although there is mild generalized senescent cerebral cortical atrophy and periventricular white matter small vessel disease. There is also intracranial atherosclerotic vascular calcifications. The basilar cisterns are patent. No shift or herniation. No evidence for elevated pressures. IMPRESSION: Abnormal head CT, given the provided history is compatible with left frontal lobe recent infarct with the cortical hyperdensity compatible with minimal amounts of residual parenchymal petechial blood products. No hyperdense blood to suggest an acute hemorrhage. As discussed above correlation with outside studies would be very helpful and if become available an addendum addressing stability will be provided upon receipt. If prior studies do not become available continued followup recommended to more confidently exclude the possibility of underlying vasogenic edema from other parenchymal lesion. No other substantial finding. Pertinent results have been discussed by phone with the ordering physician. Report was faxed to the office of Dr. La Nena Mccullough by yunior at 1:53 p.m. Dictated by: Dictated on workstation # [id number]
[2018-03-12] MEDS ORDERED: RT-ALBUTEROL SULF 2.5 MG/3 ML PRE-MIX VIAL INH PRN (14:00)
--- NOTE | 2018-03-12 14:55 | ST Dysphagia Evaluation ---
Speech Evaluation-General Medical Diagnosis CVA Onset Date: Mar 11, 2018 Therapy Diagnosis Therapy Diagnosis: Oropharyngeal Dysphagia Precautions Precautions/Isolations: Fall Prevention, Standard Precautions Medical History Pertinent Medical History: CAD, DM, HTN, Renal Insufficiency Reviewed History: Yes Speech PLF/Current-Dysphagia Prior Level of Function Patient lived with family. At the time of her CVA the patient was eating regular consistencies. Subjective Patient was alert and participated thoroughly with the dysphagia evaluation. Cognitive Status Patient Orientation: Person, Place, Eyes Open Oral Motor Skills Denture Type: Full- Upper & Lower Ability to Follow Directions: Excellent Patient was NPO post transfer to the ICU. Oral Expression Ability: No Impairment Voice Voice Phonatory-Based Quality: Breathy Voice Pitch: Mildly Low Voice Loudness: Mildly Soft/Quiet Face Facial Symmetry: Symmetrical Oral-Facial Assessment Oral-Facial Dentition: Normal Labial Seal Description: Normal Smile: Normal Puff Cheeks: Normal Lingual Protrusion: Normal Lingual ROM: Normal Lingual Strength: Normal Gag Reflex Response: Normal Pharynx Velopharyngeal Move.: Normal Volitional Dry Swallow: Yes Voluntary Cough: No Can Clear Throat Volitionally: No Productive Cough: No Productive Throat Clear: No Dysphagia Evaluation Consistencies Presented: Regular, Thin Liquid, Mechanical Soft, Pureed Within Functional Limits for all consistencies Swallowing Precautions: Alternate Liquids/Solids, Double Swallow, Liquids from Straw, Small Bites and Sips, Sitting Upright 90 Degrees, Sitting 90 Degrees 30 Post Intake Patient was not having difficulty swallowing prior to the incident (non swallow related) which resulted in ICU placement. Dysphagia Evaluation Summary Patient is a 78 year old woman who was initially seen on the ARU this am. While working with the OT she had an incident which resulted in placement in the ICU. She was made NPO at that time pending a dysphagia evaluation. The evaluation was completed this afternoon with all diet level textures and thin liquids presented via cup and straw. She did not have difficulty swallowing any of the textures. She did exhibit some difficulty handling the cup due to CVA residual affects. Patient is considered safe for regular diet consistency and thin liquids. Barriers to Learning Patient does have residual CVA affects. Speech Short Term Goals Short Term Goals Short Term Goals 1) Patient will tolerate least restrictive diet level without s/s of aspiration at 90% or greater. 2) Patient will utilize compensatory strategies as trained with 90% or greater. Speech Accounting Administrator Goals Residential Goals Patient will maintain adequate nutrition/hydration via safe, effective swallow function. Speech-Plan Patient/Family Goals Patient/Family Goals: Patient will return home with family support post rehab. Treatment Plan Speech Therapy Treatment Plan: Continue Plan of Care Patient was evaluated per aphasia this am on the ARU. Treatment Duration: Mar 13, 2018 Frequency: 5 times per week Estimated Hrs Per Day: .25 hour per day Rehab Potential: Fair Barriers to Learning: Patient has residual affects of her CVA. Pt/Family Agrees to Plan: Yes Safety Risks/Education Teaching Recipient: Patient Teaching Methods: Discussion Response to Teaching: Verbalize Understanding Education Topics Provided: Compensatory strategies for safe oral intake. Time Speech Therapy Time In: 14:30 Speech Therapy Time Out: 14:45 Total Billed Time: 15 Billed Treatment Time 1[address] ST Mar 12, 2018 14:55
[2018-03-12] MEDS ORDERED: ATORVASTATIN 40 MG (LIPITOR) TABLET PO SCH (21:00)
[2018-03-13] VITALS (10 sets, daily range): BP systolic 107–131; BP diastolic 56–100
[2018-03-13 04:27] LABS: BASOPHILS % (AUTO) 0 % (0-10); EOSINOPHILS % (AUTO) 1 % (0-10); HEMATOCRIT 34 % (35-52); HEMOGLOBIN 11.2 G/DL (11.5-16.0); LYMPHOCYTES # (AUTO) 1.1 X 10^3 (1.0-4.0); LYMPHOCYTES % (AUTO) 22 % (12-44); MEAN CORPUSCULAR HEMOGLOBIN 30 PG (25-34); MEAN CORPUSCULAR HGB CONC 33 G/DL (32-36); MEAN CORPUSCULAR VOLUME 89 FL (80-99); MEAN PLATELET VOLUME 11.8 FL (7.4-10.4); MONOCYTES # (AUTO) 0.4 X 10^3 (0.0-1.0); MONOCYTES % (AUTO) 9 % (0-12); NEUTROPHILS # (AUTO) 3.4 X 10^3 (1.8-7.8); NEUTROPHILS % (AUTO) 69 % (42-75); PLATELET COUNT 132 10^3/uL (130-400); RED BLOOD COUNT 3.78 10^6/uL (4.35-5.85); RED CELL DISTRIBUTION WIDTH 14.2 % (10.0-14.5)
[2018-03-13 05:11] LABS: ALANINE AMINOTRANSFERASE 11 U/L (0-55); ALBUMIN 3.3 GM/DL (3.2-4.5); ALKALINE PHOSPHATASE 63 U/L (40-136); BILIRUBIN,TOTAL 0.5 MG/DL (0.1-1.0); BUN/CREATININE RATIO 28; CALCIUM 8.8 MG/DL (8.5-10.1); CARBON DIOXIDE 19 MMOL/L (21-32); CHLORIDE 108 MMOL/L (98-107); CREATININE SERUM 0.89 MG/DL (0.60-1.30); GFR ESTIMATED > 60; GLUCOSE 108 MG/DL (70-105); POTASSIUM 4.4 MMOL/L (3.6-5.0); SODIUM 138 MMOL/L (135-145); TOTAL PROTEIN 5.4 GM/DL (6.4-8.2)
--- NOTE | 2018-03-13 06:09 | Pulmonary Progress Note ---
Subjective Time Seen by a Provider: 06:09 Subjective/Events-last exam PT is doing better today. Sepsis Event Evaluation Height, Weight, BMI Height: 5'0.00" Weight: 146lbs. 6.0oz. 66.952967br; 28.6 BMI Method: Exam Exam Vital Signs Date Time Temp Pulse Resp B/P (MAP) Pulse Ox O2 Delivery O2 Flow Rate FiO2 03/13/18 05:00 68 24 123/62 (82) 95 Nasal Cannula 3.00 03/13/18 04:15 97.8 03/13/18 04:00 75 14 131/72 (91) 96 Nasal Cannula 3.00 03/13/18 04:00 96 Room Air 03/13/18 03:00 73 17 126/67 (86) 96 Nasal Cannula 3.00 03/13/18 02:00 71 18 129/64 (85) 96 Nasal Cannula 3.00 03/13/18 01:00 71 20 131/67 (88) 96 Nasal Cannula 3.00 03/13/18 01:00 92 03/13/18 00:30 97.6 03/13/18 00:00 96 Room Air 03/13/18 00:00 75 18 131/62 (85) 96 Nasal Cannula 3.00 03/12/18 23:50 Nasal Cannula 3.00 03/12/18 23:00 68 27 124/65 (84) 97 Nasal Cannula 3.00 03/12/18 22:00 79 19 126/65 (85) 97 Nasal Cannula 3.00 03/12/18 21:00 80 10 145/88 (107) 96 Nasal Cannula 3.00 03/12/18 20:30 97.5 78 16 144/80 (101) 97 Room Air 03/12/18 20:00 101 23 142/102 (115) 96 Nasal Cannula 3.00 03/12/18 20:00 96 Room Air 03/12/18 19:00 68 03/12/18 19:00 68 130/70 (90) 97 Nasal Cannula 3.00 03/12/18 18:00 66 22 128/76 (93) 97 Nasal Cannula 3.00 03/12/18 17:00 65 20 118/72 (87) 98 Nasal Cannula 3.00 03/12/18 16:30 97.3 03/12/18 16:00 100 Nasal Cannula 3.00 03/12/18 16:00 67 18 124/67 (86) 98 Nasal Cannula 3.00 03/12/18 15:00 69 15 124/67 (86) 99 Nasal Cannula 3.00 03/12/18 14:00 65 15 127/70 (89) 98 Nasal Cannula 3.00 03/12/18 13:56 65 100 32 03/12/18 13:00 65 03/12/18 13:00 65 18 131/79 (96) 96 Nasal Cannula 3.00 03/12/18 12:00 65 23 115/61 (79) 100 Nasal Cannula 3.00 03/12/18 11:47 65 03/12/18 11:40 97.4 65 12 107/61 (76) 100 Nasal Cannula 3.00 03/12/18 11:40 Nasal Cannula 3.00 I & O 03/13/18 07:00 Intake Total 1290 ml Output Total 200 ml Balance 1090 ml Height & Weight Height: 5'0.00" Weight: 146lbs. 6.0oz. 66.763211wu; 28.6 BMI Method: General Appearance: No Apparent Distress, WD/WN, Chronically ill HEENT: PERRL/EOMI, TMs Normal, Normal ENT Inspection, Pharynx Normal Neck: Full Range of Motion, Normal Inspection, Non Tender, Supple, Carotid Bruit Respiratory: Chest Non Tender, Lungs Clear, Normal Breath Sounds, No Accessory Muscle Use, No Respiratory Distress Cardiovascular: Regular Rate, Rhythm, No Edema, No Gallop, No JVD, No Murmur, Normal Peripheral Pulses Extremity: Normal Capillary Refill, Normal Inspection, Normal Range of Motion, Non Tender, No Calf Tenderness, No Pedal Edema 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, No Motor/Sensory Deficits, Normal Mood/Affect, Disoriented, Motor Weakness (right UE) Skin: Normal Color, Warm/Dry Lymphatic: No Adenopathy Results Lab Laboratory Tests 03/12/18 12:00 03/13/18 03:35 Assessment/Plan Assessment/Plan Acute syncope while in rehab - probably vasovagal -IVF -CT of head stat- no obvious acute change HX of ICH -Was treated at From pulmonary standpoint pt can transfer back to rehab. There are no beds on 4th floor. SINCERE DALTON DO Mar 13, 2018 06:09
[2018-03-13] MEDS ORDERED: LEVOTHYROXINE 25 MCG (LEVOTHROID) TAB PO SCH (06:30)
--- NOTE | 2018-03-13 07:55 | Cardiology Progress Note ---
Subjective Date Seen by Provider: Mar 13, 2018 Time Seen by Provider: 07:54 Subjective/Events-last exam patient is laying down in bed, feeling better. No chest pain. No more dizziness. Review of Systems General: No Chills, No Night Sweats, No Fatigue, No Malaise, No Appetite, No Other HEENT: No Head Aches, No Visual Changes, No Eye Pain, No Ear Pain, No Dysphasia , No Sinus Congestion, No Post Nasal Drip, No Sore Throat, No Other Pulmonary: No Dyspnea, No Cough, No Pleuritic Chest Pain, No Other Cardiovascular: No: Chest Pain, Palpitations, Orthopnea, Paroxysmal Noc. Dyspnea, Edema, Lt Headedness, Other Objective-Cardiology Exam Last Set of Vital Signs Vital Signs 03/12/18 03/13/18 03/13/18 13:56 04:15 07:45 Temp 97.8 Pulse Ox 96 O2 Delivery Room Air FiO2 32 Capillary Refill : I&O Intake and Output 03/13/18 00:00 Intake Total 1290 ml Output Total 0 ml Balance 1290 ml Intake Oral 290 ml IV Total 1000 ml Output Urine Total 0 ml # Voids 2 # Bowel Movements 2 Daily Weight Change No No General: Alert, Oriented X3, Cooperative HEENT: Atraumatic, PERRLA Neck: Supple, No JVD, No Thyromegaly Lungs: Clear to Auscultation, Normal Air Movement Heart: Regular Rate, Normal S1, Normal S2, No Murmurs Abdomen: Normal Bowel Sounds, Soft, No Tenderness, No Hepatosplenomegaly, No Masses Extremities: No Clubbing, No Cyanosis, No Edema, Normal Pulses, No Tenderness/ Swelling Skin: No Rashes, No Breakdown, No Significant Lesion Neuro: Normal Gait, Normal Speech, Strength at 5/5 X4 Ext, Normal Tone, Sensation Intact Psych/Mental Status: Mental Status NL, Mood NL Results Lab Laboratory Tests 03/12/18 12:00 03/13/18 03:35 A/P-Cardiology Admission Diagnosis syncope CVA Coronary artery disease Congestive heart failure, chronic compensated left ventricular systolic dysfunction, ischemic cardiomyopathy Assessment/Plan Syncope, probably hypotensive episode, vasovagal episode, better at this time, blood pressure is mildly elevated. 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 Was receiving physical therapy. Coronary artery disease, non-ST elevation myocardial infarction had elevation in troponin level of 1.5, had ST elevation in V2 with QS in the anterior leads, no reciprocal changes. Conservative management in [facility]. Continue to monitor, history of CABG in the past. Congestive heart failure, chronic compensated left ventricular systolic dysfunction, probably ischemic in nature with ejection fraction reported to be between 35 and 40 percent, continue to monitor at this time Hypertension, status post hypotensive episode. Monitor blood pressure Hyperlipidemia, restart Lipitor 40 mg daily and monitor History of permanent pacemaker, atrial paced rhythm on EKG. Hypothyroidism, managed by primary care physician Okay for discharge to rehabilitation from cardiology standpoint Clinical Quality Measures DVT/VTE Risk/Contraindication: Risk Factor Score Per Nursin RFS Level Per Nursing on Admit: 2=Moderate JAC MABRY MD Mar 13, 2018 07:55
--- NOTE | 2018-03-13 08:43 | Discharge Summary-Hospitalist ---
Diagnosis/Chief Complaint Date of Admission Mar 12, 2018 at 11:30 Date of Discharge Discharge Date: Mar 13, 2018 Discharge Diagnosis (1) Syncope and collapse Status: Resolved (2) Cerebrovascular accident (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 Status: Chronic (3) Elevated troponin Status: Resolved (4) Disorientation Status: Acute (5) Memory deficit Status: Acute (6) Pacemaker Status: Chronic (7) Aphasia Status: Acute (8) Renal insufficiency Status: Chronic (9) Hyperlipidemia Status: Chronic (10) CAD (coronary artery disease) Status: Chronic (11) Medication side effect Status: Acute Discharge Summary Discharge Physical Exam Allergies: Coded Allergies: NKANo Known Allergies (Unverified Allergy, Mild, 07/03/08) Vitals & I&Os Vital Signs Date Time Temp Pulse Resp B/P (MAP) Pulse Ox O2 Delivery O2 Flow Rate FiO2 03/13/18 09:00 65 27 124/66 (85) 97 Nasal Cannula 3.00 03/13/18 08:00 97.9 03/12/18 13:56 32 General Appearance: No Apparent Distress, WD/WN, Chronically ill, Thin Respiratory: Chest Non Tender, Lungs Clear, Normal Breath Sounds, No Accessory Muscle Use, No Respiratory Distress Cardiovascular: Regular Rate, Rhythm, No Edema, No Gallop, No JVD, No Murmur, Normal Peripheral Pulses 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, Oriented x3, No Motor/Sensory Deficits, Normal Mood/Affect Hospital Course Hospital course: Patient a brief ICU course after rapid response was called due to unresponsive episode found to have vasovagal and hypovolemic episode with fecal incontinence. Patient received IV fluids and pulmonary and cardiology consultation and was deemed stable to return to inpatient rehabilitation to resume her therapies. Labs (last 24 hrs) Laboratory Tests 03/12/18 16:29: Glucometer 183H 03/12/18 21:33: Glucometer 290H 03/13/18 03:35: White Blood Count 5.0, Red Blood Count 3.78L, Hemoglobin 11.2L, Hematocrit 34L, Mean Corpuscular Volume 89, Mean Corpuscular Hemoglobin 30, Mean Corpuscular Hemoglobin Concent 33, Red Cell Distribution Width 14.2, Platelet Count 132, Mean Platelet Volume 11.8H, Neutrophils (%) (Auto) 69, Lymphocytes (%) (Auto) 22 , Monocytes (%) (Auto) 9, Eosinophils (%) (Auto) 1, Basophils (%) (Auto) 0, Neutrophils # (Auto) 3.4, Lymphocytes # (Auto) 1.1, Monocytes # (Auto) 0.4, Eosinophils # (Auto) 0.0, Basophils # (Auto) 0.0, Sodium Level 138, Potassium Level 4.4, Chloride Level 108H, Carbon Dioxide Level 19L, Anion Gap 11, Blood Urea Nitrogen 25H, Creatinine 0.89, Estimat Glomerular Filtration Rate > 60, BUN /Creatinine Ratio 28, Glucose Level 108H, Calcium Level 8.8, Corrected Calcium 9.4, Total Bilirubin 0.5, Aspartate Amino Transf (AST/SGOT) 22, Alanine Aminotransferase (ALT/SGPT) 11, Alkaline Phosphatase 63, Total Protein 5.4L, Albumin 3.3 03/13/18 10:57: Glucometer 123H Patient resulted labs reviewed. Pending Labs Laboratory Tests 03/13/18 10:57: Glucometer 123 Discussion & Recommendations Discharge Planning: <30 minutes discharge planning Discharge Home Medications: Active Scripts Active No Active Prescriptions or Reported Medications Instructions to patient/family Please see electronic discharge instructions given to patient. Clinical Quality Measures Admission Status Admission Dx Problems: Acute syncope due to vasovagal response with hypovolemia requiring observation in ICU overnight (1) Cerebrovascular accident (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 Status: Acute (2) CAD (coronary artery disease) Status: Chronic (3) Pacemaker Status: Chronic (4) Renal insufficiency Status: Chronic (5) Hyperlipidemia Status: Chronic (6) Noncompliance Status: Chronic (7) Disorientation Status: Acute (8) Aphasia Status: Acute (9) Memory deficit Status: Acute (10) Elevated troponin Status: Acute DVT/VTE Risk/Contraindication: Risk Factor Score Per Nursin RFS Level Per Nursing on Admit: 2=Moderate ERVIN TRAN DO Mar 13, 2018 08:43
[2018-03-13] MEDS ORDERED: ASPIRIN E.C. 81 MG (ECOTRIN) TAB PO SCH (09:00)
[2018-03-13] MEDS ORDERED: lisINopril 5 MG (PRINIVIL) TABLET PO SCH (09:00)
--- NOTE | 2018-03-13 09:33 | NUR ---
Pt transferred back to rehab room 231 via wheelchair. No discharge orders printed as Dr. Mccullough stated that pt was on rehab hold and would continue all previous orders from current rehab stay. No instructions or medications placed on discharge orders at this time. Report given to Aditya at this time.
--- NOTE | 2018-03-13 10:22 | Speech Therapy Daily Note ---
Speech Daily Progress Note Subjective Date Seen by Provider: Mar 13, 2018 Time Seen by Provider: 00:15 Patient had just eaten breakfast when I arrived. She has not had any difficulty with oral intake. Objective Patient completed compensatory strategies for safe oral intake at 90% with minimal cues. Assessment Assessment Current Status: Good Progress Treatment Plan Continue Plan of Care Speech Short Term Goals Short Term Goals Short Term Goals 1) Patient will tolerate least restrictive diet level without s/s of aspiration at 90% or greater. 2) Patient will utilize compensatory strategies as trained with 90% or greater. Speech Custodial Goals Export Administrator Goals Patient will maintain adequate nutrition/hydration via safe, effective swallow function. Speech-Plan Patient/Family Goals Patient/Family Goals: Patient will be moved to ARU when she is medically stable. Treatment Plan Speech Therapy Treatment Plan: Continue Plan of Care Patient is on a regular diet level. Treatment Duration: Mar 13, 2018 Frequency: 5 times per week Estimated Hrs Per Day: .25 hour per day Rehab Potential: Fair Barriers to Learning: Patient has had a recent CVA. Pt/Family Agrees to Plan: Yes Safety Risks/Education Teaching Recipient: Patient Teaching Methods: Discussion Response to Teaching: Verbalize Understanding Education Topics Provided: Safety with oral intake. Time Speech Therapy Time In: 08:30 Speech Therapy Time Out: 08:45 Total Billed Time: 15 Billed Treatment Time 1, VERITO Root Mar 13, 2018 10:22
--- OUTSIDE RECORDS SUMMARY | 2018-03-16 14:58 | XMS REPORT | Clinical Summary ---
Author Author [facility] Organization [facility] Address Unknown Phone Unavailable Care Team Providers Care Human Development Professor Name Role Phone No Pcp, Na PCP Unavailable Source Comments Some departments are not documenting in the electronic medical record. If you do not see the information that you expected, contact Release of Information in the Health Information Management department at [phone] for further assistance in locating additional records.[facility] Allergies No Known Allergies Medications End Date [...] MD Lechtenberg, Colleen G, MD Stroke (cerebrum) ([facility]) 03/09/2018 Hospital - Encounter 03/11/2018 from Last [...] Taken Vital Sign Reading 03/11/2018 2:00 PM ROOM SERVICE FOOD SERVER Blood Pressure 127/80 03/11/2018 2:00 PM ROOM SERVICE FOOD SERVER Pulse 70 03/11/2018 2:00 PM ROOM SERVICE FOOD SERVER Temperature 36.9 C (98.4 F) - Respiratory Rate - 03/11/2018 2:00 PM ROOM SERVICE FOOD SERVER Oxygen Saturation 97% - Inhaled Oxygen - Concentration 03/10/2018 4:00 AM ROOM SERVICE FOOD SERVER Weight 58.7 kg (129 lb 6.6 oz) 03/09/2018 11:31 AM ROOM SERVICE FOOD SERVER Height 147.3 cm (4' 10") 03/10/2018 4:00 AM ROOM SERVICE FOOD SERVER Body Mass Index 27.05 Plan of Treatment Health Maintenance Due Date Last Done Comments PHYSICAL (COMPREHENSIVE) 01/17/1947 EXAM DTAP/TDAP VACCINES (1 - 1959 Tdap) SHINGLES RECOMBINANT 1991 VACCINE (1 of 2) OSTEOPOROSIS 2006 SCREENING/MONITORING PNEUMONIA (PCV13/PPSV23) 2006 VACCINES (1 of 2 - PCV13) INFLUENZA VACCINE 10/08/2017 Procedures Comments Procedure Name Priority Date/Time Associated Diagnosis MAGNESIUM Routine 03/11/2018 5:10 AM ROOM SERVICE FOOD SERVER BASIC METABOLIC PANEL Routine 03/11/2018 5:10 AM ROOM SERVICE FOOD SERVER CBC Routine 03/11/2018 5:10 AM ROOM SERVICE FOOD SERVER PHOSPHORUS Routine 03/10/2018 4:10 AM ROOM SERVICE FOOD SERVER MAGNESIUM Routine 03/10/2018 4:10 AM ROOM SERVICE FOOD SERVER BASIC METABOLIC PANEL Routine 03/10/2018 4:10 AM ROOM SERVICE FOOD SERVER CBC Routine 03/10/2018 4:10 AM ROOM SERVICE FOOD SERVER CT HEAD WO CONTRAST Routine 03/10/2018 3:53 AM ROOM SERVICE FOOD SERVER DEVICE EVALUATION - PPM STAT 03/09/2018 2:50 PM ROOM SERVICE FOOD SERVER ABDOMEN AP ONLY Routine 03/09/2018 1:21 PM ROOM SERVICE FOOD SERVER URINALYSIS MICROSCOPIC Routine 03/09/2018 REFLEX TO CULTURE 11:51 AM ROOM SERVICE FOOD SERVER URINALYSIS DIPSTICK Routine 03/09/2018 REFLEX TO CULTURE 11:51 AM ROOM SERVICE FOOD SERVER 2-D + DOPPLER Routine 03/09/2018 ECHOCARDIOGRAM 11:31 AM ROOM SERVICE FOOD SERVER TROPONIN-I STAT 03/09/2018 10:40 AM ROOM SERVICE FOOD SERVER CHEST SINGLE VIEW STAT 03/09/2018 8:29 AM ROOM SERVICE FOOD SERVER BNP (B-TYPE NATRIURETIC Routine 03/09/2018 PEPTI) 8:06 AM ROOM SERVICE FOOD SERVER TROPONIN-I STAT 03/09/2018 8:06 AM ROOM SERVICE FOOD SERVER CONSULT IV THERAPY TEAM STAT 03/09/2018 7:38 AM ROOM SERVICE FOOD SERVER PHOSPHORUS Routine 03/09/2018 7:00 AM ROOM SERVICE FOOD SERVER MAGNESIUM Routine 03/09/2018 7:00 AM ROOM SERVICE FOOD SERVER TROPONIN-I STAT 03/09/2018 7:00 AM ROOM SERVICE FOOD SERVER BASIC METABOLIC PANEL Routine 03/09/2018 7:00 AM ROOM SERVICE FOOD SERVER PTT (APTT) Routine 03/09/2018 7:00 AM ROOM SERVICE FOOD SERVER PROTIME INR (PT) Routine 03/09/2018 7:00 AM ROOM SERVICE FOOD SERVER CBC AND DIFF Routine 03/09/2018 7:00 AM ROOM SERVICE FOOD SERVER HEMOGLOBIN A1C Routine 03/09/2018 7:00 AM ROOM SERVICE FOOD SERVER LIPID PROFILE Routine 03/09/2018 7:00 AM ROOM SERVICE FOOD SERVER CTA NECK WO/W STAT 03/09/2018 CONTRAST+POST P 6:50 AM ROOM SERVICE FOOD SERVER CTA HEAD WO/W CONTR+POST STAT 03/09/2018 PRO 6:50 AM ROOM SERVICE FOOD SERVER CT BRAIN PERF STAT 03/09/2018 6:50 AM ROOM SERVICE FOOD SERVER ECG 12-LEAD STAT 03/09/2018 6:26 AM ROOM SERVICE FOOD SERVER from Last 3 Months Results * CBC (03/11/2018 5:10 AM ROOM SERVICE FOOD SERVER) Only the most recent of 2 results [...] MAIN LAB Specimen Blood Performing Organization Address City/[facility] Phone Number [facility] [address] [place] [address] * MAGNESIUM (03/11/2018 5:10 AM ROOM SERVICE FOOD SERVER) Only the most recent of 3 results within the time period is included. Magnesium 1.7 1.6 - 2.6 mg/dL [facility] Specimen Blood Performing Organization Address City/[facility]/Zipcode Phone Number MAIN LAB [address] [place] [address] * BASIC METABOLIC PANEL (03/11/2018 5:10 AM ROOM SERVICE FOOD SERVER) Only the most recent of 3 results [...] Address City/State/Zipcode Phone Number MAIN LAB [address] [place] [address] * PHOSPHORUS (03/10/2018 4:10 AM ROOM SERVICE FOOD SERVER) Only the most recent of 2 results within the time period is included. Phosphorus 4.0Comment: NOTE NEW REFERENCE 2.0 - 4.5 MG/DL [facility] RANGES Specimen Blood Performing Organization Address City/[facility]/Zipcode Phone Number [facility] [address] [place] [address] * CT HEAD WO CONTRAST (03/10/2018 3:53 AM ROOM SERVICE FOOD SERVER) Impressions Performed At 1.Development of subtle vague [...] Interface, Radiant Results - 03/10/2018 4:23 AM ROOM SERVICE FOOD SERVER EXAM: CT HEAD CLINICAL INDICATION: Female, 78 [...] DEVICE EVALUATION - PPM (03/09/2018 2:50 PM ROOM SERVICE FOOD SERVER) Generator Gear Design Engineer [place] OTHER OUTSIDE LAB Generator Model # Accent DR RF 2210 OTHER OUTSIDE LAB Generator Serial # [id number] OTHER OUTSIDE LAB Generator Implnat Date 03/01/13 OTHER OUTSIDE LAB Device Mode DDDR OTHER OUTSIDE LAB Lower Rate Limit 65 OTHER OUTSIDE LAB Atrial Lead Gear Design Engineer [place] OTHER OUTSIDE LAB Atrial Lead Model # Tendril STS 2088TC - 46cm OTHER OUTSIDE LAB Atrial Lead Serial # [id number] OTHER OUTSIDE LAB Atrial Lead Implant Date 03/01/13 OTHER OUTSIDE LAB RV Lead Gear Design Engineer [facility] OTHER OUTSIDE LAB RV Lead Model # Tendril STS 2088TC - 52cm OTHER OUTSIDE LAB RV Lead Serial # [id number] OTHER OUTSIDE LAB RV Lead Implant Date 03/01/13 OTHER OUTSIDE LAB Initial Rhythm -VS OTHER OUTSIDE LAB Underlying Rhythm SR 80's OTHER OUTSIDE LAB Upper Rate Limit 125 OTHER OUTSIDE LAB Pace AV Delay 250 OTHER OUTSIDE LAB Sense AV Delay 225 OTHER OUTSIDE LAB -VS% 34 OTHER OUTSIDE LAB -DIRECTOR OF PUBLIC SAFETY% <1 OTHER OUTSIDE LAB -VS% 65 OTHER OUTSIDE LAB AP-DIRECTOR OF PUBLIC SAFETY% <1 OTHER OUTSIDE LAB # Mode S. [...] * ABDOMEN AP ONLY (03/09/2018 1:21 PM ROOM SERVICE FOOD SERVER) Impressions Performed At No indwelling metal objects [...] Interface, Radiant Results - 03/09/2018 4:34 PM ROOM SERVICE FOOD SERVER ABDOMEN AP ONLY Clinical Indication: Female, 78 [...] on 03/09/2018 1:29 PM. Performing Organization Address [facility] Phone Number RAD RESULTS * URINALYSIS MICROSCOPIC REFLEX TO CULTURE (03/09/2018 11:51 AM ROOM SERVICE FOOD SERVER) WBCs,UA 0-2 0 - 2 /HPF [facility] RBCs,UA 0-2 0 - 3 /HPF [facility] Comment,UA Urine submitted for reflex [facility] culture if criteria are met:WBC>10, positive nitrite and/or >=1+ leukocyte esterase. If quantity is not sufficient, an addendum will follow. Squamous Epithelial Cells 0-2 0 - 5 [facility] Specimen Urine Performing Organization Address [facility] Phone Number MAIN LAB [address] [place] [address] * URINALYSIS DIPSTICK REFLEX TO CULTURE (03/09/2018 11:51 AM ROOM SERVICE FOOD SERVER) Color,UA STRAW [facility] Turbidity,UA CLEAR CLEAR-CLEAR [facility] Specific [place]-Urine 1.020 1.003 - 1.035 [facility]IN [facility] [...] MAIN LAB Specimen Urine Performing Organization Address [facility] Phone Number MAIN LAB [address] [place] [address] * 2-D + DOPPLER ECHOCARDIOGRAM (03/09/2018 11:31 AM ROOM SERVICE FOOD SERVER) IVS 0.96 0.6 - 0.9 cm OTHER [...] m2 OTHER OUTSIDE LAB CV ECHO PV SALES AND LEASING AGENT ANGEL Callahan OTHER OUTSIDE LAB FS 16.43 28 - 44 % OTHER OUTSIDE LAB EF 27.93 % OTHER OUTSIDE LAB LV mass 194.37 66 - 150 g OTHER OUTSIDE LAB RWT 0.31 <=0.42 OTHER OUTSIDE LAB E/A ratio 0.76 OTHER OUTSIDE LAB E/E' ratio 14.50 OTHER OUTSIDE LAB Left Atrium Index 50.93 16 - 34 OTHER OUTSIDE LAB Cardiology Ultrasound Siemens [id number] OTHER OUTSIDE LAB Machine Left Ventricle Mass [...] OUTSIDE LAB * TROPONIN-I (03/09/2018 10:40 AM ROOM SERVICE FOOD SERVER) Only the most recent of 3 results within the time period is included. Troponin-I 0.78 (H) 0.0 - 0.05 NG/ML [facility] Specimen Blood Performing Organization Address City/State/Zipcode Phone Number [facility] [address] [place] [address] * CHEST SINGLE VIEW (03/09/2018 8:29 AM ROOM SERVICE FOOD SERVER) Impressions Performed At Mild cardiomegaly with no [...] Interface, Radiant Results - 03/09/2018 11:21 AM ROOM SERVICE FOOD SERVER CHEST SINGLE VIEW Clinical history: Post TPA [...] on 03/09/2018 8:56 AM. Performing Organization Address [facility] Phone Number RAD RESULTS * BNP (B-TYPE NATRIURETIC PEPTI) (03/09/2018 8:06 AM ROOM SERVICE FOOD SERVER) B Type Natriuretic 334.0 (H) 0 - 100 PG/ML [facility] Peptide Specimen Blood Performing Organization Address [facility] Phone Number MAIN LAB [address] [place] [address] * PTT (APTT) (03/09/2018 7:00 AM ROOM SERVICE FOOD SERVER) APTT 25.0Comment: NOTE NEW 24.0 - 36.5 SEC [facility] REFERENCE RANGES Specimen Blood Performing Organization Address [facility] Phone Number MAIN LAB [address] [place] [address] * PROTIME INR (PT) (03/09/2018 7:00 AM ROOM SERVICE FOOD SERVER) INR 1.0 0.8 - 1.2 MAIN LAB Specimen Blood Performing Organization Address [facility] Phone Number MAIN LAB [address] [place] [address] * CBC AND DIFF (03/09/2018 7:00 AM ROOM SERVICE FOOD SERVER) White Blood Cells 6.6 4.5 - 11.0 [...] MAIN LAB Specimen Blood Performing Organization Address City/[facility] Phone Number MAIN LAB [address] [place] [address] * HEMOGLOBIN A1C (03/09/2018 7:00 AM ROOM SERVICE FOOD SERVER) Hemoglobin A1C 6.4 (H) 4.0 - 6.0 % [facility] Comment: The ADA recommends that most patients with type 1 and type 2 diabetes maintain an A1c level <7%. Specimen Blood Performing Organization Address [facility] Phone Number MAIN LAB [address] [place] [address] * LIPID PROFILE (03/09/2018 7:00 AM ROOM SERVICE FOOD SERVER) Cholesterol 217 (H) <200 MG/DL [facility] MAIN [...] 130 mg/dL. Specimen Blood Performing Organization Address [facility] Phone Number MAIN LAB [address] [place] [phone] * CT BRAIN PERF (03/09/2018 6:50 AM ROOM SERVICE FOOD SERVER) Impressions Performed At CTA head: [facility] RAD [...] spaces. There is low-attenuation and loss of iperson-white matter differentiation along the high posterior left [...] Interface, Radiant Results - 03/09/2018 7:28 AM ROOM SERVICE FOOD SERVER EXAM: CTA HEAD AND NECK, CTA BRAIN [...] NECK WO/W CONTRAST+POST P (03/09/2018 6:50 AM ROOM SERVICE FOOD SERVER) Impressions Performed At CTA head: [facility] RAD [...] Interface, Radiant Results - 03/09/2018 7:28 AM ROOM SERVICE FOOD SERVER EXAM: CTA HEAD AND NECK, CTA BRAIN [...] HEAD WO/W CONTR+POST PRO (03/09/2018 6:50 AM ROOM SERVICE FOOD SERVER) Impressions Performed At CTA head: [facility] RAD [...] Interface, Radiant Results - 03/09/2018 7:28 AM ROOM SERVICE FOOD SERVER EXAM: CTA HEAD AND NECK, CTA BRAIN [...] on file. For more information, please contact: [facility] [address] [place] [address] Date Inactivated Comments Code Status Date Activated 03/11/2018 4:49 PM Full Code 03/09/2018 6:26 AM Provider has discussed Code Status No, more discussion w/Patient or Family? needed
--- OUTSIDE RECORDS SUMMARY | 2018-03-16 14:59 | XMS REPORT | Encounter Summary ---
Author Author [facility] Organization [facility] Address Unknown Phone Unavailable Care Team Providers Care Bulb Planter Name Role Phone No Pcp, Na PCP Unavailable Reason for Visit * Reason Comments Test/procedure Enrollment on Cardio Net Encounter Details Care Team Description Date Type Department Nicanor Moody Test/procedure (Enrollment on Cardio Net ) 03/12/2018 Documentation Cardiovascular Medicine [facility] [place] [address] Social History Date Tobacco Use Types Packs/Day [...] * Nicanor Moody - 03/12/2018 10:23 AM BLOCKMAN Brand: Cardio Net Type: Looping Length: [address]: Serina Diagnosis: AF Was insurance info faxed with enrollment: Enrollment online We are going to ask for overnight shipment. KMAN in this encounter Plan of Treatment Not on fileas of this encounter Visit Diagnoses Not on filein this encounter
--- OUTSIDE RECORDS SUMMARY | 2018-03-16 14:59 | XMS REPORT | Encounter Summary ---
Author Author [facility] Organization [facility] Address Unknown Phone Unavailable Care Team Providers Care Customs Examiner Name Role Phone No Pcp, Na PCP Unavailable Reason for Visit * Auth/Cert Referred By Contact Referred To Contact Status Reason Specialty Diagnoses / Procedures Diagnoses Stroke (cerebrum) (HCC) NSTEMI; Stroke Encounter Details Care Team Description Date Type Department John Carpio MD [address] [place] [address] [phone] Mallory Walker MD [address] [facility] [address] [place] [address] Nolan Bettencourt MD [address] [place] [address] Estelita Hobbs MD [address] [facility] [address] [place] [address] Stroke (cerebrum) (HCC) 03/09/2018 Hospital CA5 ICU - Encounter [id number] [facility] 03/11/2018 [place] [address] Social History Date Tobacco Use Types Packs/Day Years Used Never Assessed Sex Assigned at Date Recorded Not on file Industry Job Start Date Occupation Not on file Not on file Not on file Travel End Travel History Travel Start No recent travel history available. as of this encounter Last Filed Vital Signs Time Taken Vital Sign Reading 03/11/2018 2:00 PM BEEF LUGGER Blood Pressure 127/80 03/11/2018 2:00 PM BEEF LUGGER Pulse 70 03/11/2018 2:00 PM BEEF LUGGER Temperature 36.9 C (98.4 F) - Respiratory Rate - 03/11/2018 2:00 PM BEEF LUGGER Oxygen Saturation 97% - Inhaled Oxygen - Concentration 03/10/2018 4:00 AM BEEF LUGGER Weight 58.7 kg (129 lb 6.6 oz) 03/09/2018 11:31 AM BEEF LUGGER Height 147.3 cm (4' 10") 03/10/2018 4:00 AM BEEF LUGGER Body Mass Index 27.05 in this encounter [...] Orquidea Graham RN - 03/11/2018 2:34 PM BEEF LUGGER Report given to ANGEL Moore ([phone]) at 1130. Unable to get a hold of son Gautam Garcia ([phone]); notified Nohemi Kohler [facility] she notified me she left him a message and he was agreeable to the dcp. Pt belongings with pt. [address] [facility] here to transport Pt via wheelchair to [facility]. Transfer packet with pt at this time. LUGGER * Sharlene Sadler - 03/11/2018 11:32 AM BEEF LUGGER SPEECH-LANGUAGE PATHOLOGY DAILY TREATMENT NOTE Patient seen [...] post acute hospitalization. Therapist: Sharlene Sadler MA, L/CCC-ELECTRONIC RESOURCES LIBRARIAN Voalte: [phone] Date: 03/11/2018 LUGGER * Antionette Jean, PT - 03/11/2018 9:00 AM BEEF LUGGER PHYSICAL THERAPY PROGRESS NOTE MOBILITY: Mobility Progressive [...] placement Therapist: Antionette Jean PT Date: 03/11/2018 LUGGER * Moon Kuhn MD - 03/10/2018 12:46 PM BEEF LUGGER NEURO-ENT ICU Critical Care Progress Note Today's [...] dvt ppx - stable for transfer to [facility] Staff name: Moon Kuhn MD Date: 03/10/2018 [...] radiology reviewed. Moon Kuhn MD 03/10/2018 Pager: [phone] LUGGER * Mg Barton MD - 03/10/2018 9:46 AM BEEF LUGGER Cardiology: Remains in normal sinus. ECHO from [...] is NOT MRI compatible. Ordering team notified. LUGGER * Tika Aldana, IRENE-PRODUCT DEVELOPMENT ACTUARY - 03/10/2018 7:42 AM BEEF LUGGER Neuro Critical Care Progress Note Adeline Garcia [...] was just at the 4hour cooper from [facility]. There is concern for NSTEMI with troponin 1.[address] elevation in V2 per OSH. Pt was flown to [facility] for further evaluation and treatment. CTA/P confirmed left completed MCA stroke. Hospital and ICU course: 03/09 admitted to [facility] Neuro: left MCA stroke s/p tPA [...] for need for restraints. Disposition/Family: Admit to [facility] Primary service: NCC Consults: Cardiology and Stroke [...] diagnostic procedures reviewed. ITZ Workman Date: 03/10/[phone] I spent 45 minutes managing the care of this patient. Adeline Garcia is critically ill with ischemic stroke, HTN, CAD. Cares included: detailed neurologic and systems exam, medication review, laboratory data review and interpretation, electrolyte management, review of available imaging, DVT/PE prophylaxis review, diet review, activity review,and coordination of care with consulted teams LUGGER * Orquidea Hyde RN - 03/10/2018 4:00 AM BEEF LUGGER Pt traveled to [place] by wheelchair. Tolerated travel well, VSS. Will continue to monitor. LUGGER * Moon Kuhn MD - 03/09/2018 2:01 PM BEEF LUGGER NEURO-ENT ICU Critical Care Progress Note Today's [...] radiology reviewed. Moon Kuhn MD 03/09/2018 Pager: [phone] LUGGER * Tika Fraga OT - 03/09/2018 9:03 AM BEEF LUGGER OCCUPATIONAL THERAPY ASSESSMENT NOTE Patient Name: Adeline Garcia Room/Bed: [place] [address] Admitting Diagnosis: NSTEMI; Stroke Mobility Progressive Mobility [...] address most appropriate level of rehabilitation placement [phone]). Equipment Recommendations: Too early to be determined Therapist: AUBRIE Astorga/Margie [id number] Date: 03/09/2018 LUGGER * Abbey Hernandez, PT - 03/09/2018 9:03 AM BEEF LUGGER PHYSICAL THERAPY ASSESSMENT MOBILITY: Mobility Progressive Mobility [...] 19 Standardized (T-scale) Score: 42.48 Basic Mobility [facility] 0-100%: 36.99 [facility] G Code Modifier for Basic Mobility: CJ [...] placement Therapist: Abbey Hernandez, PT Date: 03/09/2018 LUGGER Deisy Patrick - 03/09/2018 9:01 AM BEEF LUGGER SPEECH-LANGUAGE PATHOLOGY CLINICAL SWALLOW // LANGUAGE ASSESSMENTS [...] to state answers to direct questions from ELECTRONIC RESOURCES LIBRARIAN regarding the picture, but unable to sponteneously [...] CKD, HLD, DM2, HTN who presented to [facility] with Right weakness, aphasia, left preference NIHSS [...] Mech Exam Oral Mech WFL*: No Oral [facility] Exam Summary*: Mild right sided lingual deviation. [...] Pt will participate in ongoing swallow trials ([facility] soft, regular) for purpose of diet [...] improve spontaneous speech provided mod cues. Therapist:Margie Hidalgo/CCC-ELECTRONIC RESOURCES LIBRARIAN (Pager [phone]; Voalte: [phone]) Date:03/09/2018 LUGGER * Sindy Colorado RN ([place]) - 03/09/2018 7:15 AM BEEF LUGGER Care assumed by this RN. Bedside safety [...] administered as necessary. Will continue to monitor. LUGGER in this encounter H&P Notes * Sharita Delmar M, ORGANIZATIONAL EFFECTIVENESS CONSULTANT - 03/09/2018 3:39 AM BEEF LUGGER Neuro Critical Care History and Physical Adeline [...] was just at the 4hour cooper from [facility]. There is concern for NSTEMI with troponin 1.[address] elevation in V2 per OSH. Pt was flown to [facility] for further evaluation and treatment Hospital and ICU course: 03/09 admitted to [facility] Neuro: left MCA stroke Stroke Symptom [...] on Anti-platelet treatment with ASA and plavix LIVE SOURCE OPERATOR resume ASA post TPA on 03/10 Rehabilitation services involved: OT, PT and ST Cognitive impairment suspected? yes - if yes, ELECTRONIC RESOURCES LIBRARIAN cognitive evaluation ordered? Yes Rehabilitation medicine team [...] Disease - voiding- bladder scan PRN - LIVE SOURCE OPERATOR BUN/Creat 05/04. - BUN/Creat on arrival 03/04. [...] for need for restraints. Disposition/Family: Admit to [facility] Primary service: NCC Consults: Cardiology and Stroke [...] EMS was called to her home in [facility], and she was taken to the local hospital. She was stroke activated, and TPA was administered at 0257. In the process of her work up, she was found to have EKG findings concerning for a NSTEMI and and elevated troponin of 1.15. She was transferred to [facility] for further cardiac and stroke care. Shortly after arrival here, she underwent a CTA /P which revealed findings suggestive of a left MCA stroke. Of note, per outside records, and patient's primary pharmacy, patient has not been taking LIVE SOURCE OPERATOR meds, her last refills were in August [...] with consulted teams. Malachi BONILLA Date: 03/09/[phone] LUGGER in this encounter Consult Notes * Renny Sparks MD - 03/09/2018 10:27 AM BEEF LUGGER Associated Order(s): CONSULT REHABILITATION MEDICINE PHYSICIAN Physical Medicine & Rehabilitation Consult Note Date of Service: 03/09/2018 Adeline Garcia is a 78 y.o. female. : 1940 Primary Insurance: MEDICARE Financial Class: Medicare Date of Admission: 03/09/2018 Referring Physician: Mallory Walker MD Reason for Consult: evaluate for Post-Acute Rehab/Placement Precautions: Fall Active Problems L MCA ischemic stroke Acute [place] Aphasia Left gaze preference R neglect Impaired mobility and ADLs CKD HLD T2DM HTN Assessment & Plan Adeline Garcia is a 78 y.o. female admitted to [facility] on 03/09/2018 with the following issues: L MCA ischemic stroke Impairments: aphasia, communication deficits and neglect Activity Limitations: grooming, dressing - lower, toileting, ambulation, stairs and expression Participation Restrictions: unable to return home safely Post-acute care rehabilitation needs: acute inpatient rehabilitation -Patient with clear medical complexity and goals in at least 2 therapy disciplines (PT/OT/ELECTRONIC RESOURCES LIBRARIAN) appropriate for acute inpatient rehabilitation. Goals & [...] day: Alex Sparks MD Rehab Consult Pager: [phone] History of Present Illness CC: R sided [...] available for comparison. Per cardiology recs, no laborer tin can at this time, monitor on tele, trend [...] at end of session, TABS alarm on, ELECTRONIC RESOURCES LIBRARIAN COGNITIVE EVALUATION SUMMARY PRAGMATICS: BEHAVIOR: AUDITORY COMPREHENSION: [...] by straw x7-10, pureed solids x5, or [facility] soft solids x2 Swallow Recommendations* PO: [...] MCA distribution infarct. No mismatch perfusion defect. LUGGER Associated attestation - Sourav Watts MD - 03/09/2018 4:12 PM BEEF LUGGER Rehabilitation Medicine Attending Physician Attestation: I personally [...] Mg Barton MD - 03/09/2018 8:22 AM BEEF LUGGER Associated Order(s): CONSULT CARDIOLOGY PHYSICIAN CARDIOLOGY CONSULT [...] well around 2200 yesterday. She presented to [facility] with right sided weakness, aphasia, right denise [...] CKD Recommendations - Will hold off activating laborer tin can as she doesn't meet STEMI criteria for [...] with plan above. After 5PM please call fire hydrant mechanic information resource consultant. Friday - Friday 8AM-5PM please call Cardiology consult pager ASHWINI Holcomb CV Fellow Pager: [phone] Home Medications Medications Prior to Admission Medication [...] 4.5 MG/DL Glucose: (!) 146 (03/09/18 0700) LUGGER in this encounter Miscellaneous Notes * Case Mgmt DC Plan - Antonia Sterling - 03/11/2018 2:10 PM BEEF LUGGER HEALTH POLICY NURSE Note: Faxed over discharge orders to [facility] per the request of PADMINI Kohler. Antonia Sterling Magazine Publisher For additional assistance, please contact PADMINI Kohler [phone]. LUGGER * Case Mgmt DC Plan - Antonia Sterling - 03/11/2018 10:39 AM BEEF LUGGER HEALTH POLICY NURSE Note: Requested by: PADMINI Kohler [facility] transporting patient to [facility] with [facility] paying. transmission maintenance supervisor time: 1:30p.m. This engineering writer printed and placed transfer packet in pt's chart drawer. Antonia Sterling Magazine Publisher For additional assistance, please contact PADMINI Kohler [phone] LUGGER * Case Mgmt DC Plan - Antonia Sterling - 03/11/2018 9:20 AM BEEF LUGGER HEALTH POLICY NURSE Note Received request from PADMINI Kohler to assist with transportation coordination. This engineering writer obtained multiple transportation companies and obtained quotes for wheelchair van transportation from [facility] to [address] [place] [address]. [facility] - $450.00 [facility] Policy Intern - $378.50 [facility] - $350.00 Updated PADMINI. Antonia Sterling Case Management Assitant For additional assistance, please contact [facility] Nohemi Kohler [phone]. LUGGER * Case Mgmt DC Plan - Nohemi Kohler - 03/11/2018 8:53 AM BEEF LUGGER Case Management Progress NoteNAME:Adeline Garcia :1940 AGE: 78 y.o. ADMISSION DATE: 03/09/2018 DAYS ADMITTED: LOS: 2 days Todays Date: 03/11/2018 Plan D/c to [facility] today at 1:30pm via [facility] w/c van. Interventions SW reviewed EMR and met with Neuro team for huddle. ? Support Support: Pt/Family Updates re:POC or DC Plan, Counseling for Adaptation to Illness, Counseling for Psychosocial issues See below ? Info or Referral ? Discharge Planning Discharge Planning: Inpatient Rehabilitation JAMES spoke with Jojo ([phone]) at [facility] and they are agreeable to admission. SW educated that she will follow up on d/c timeline once established. SW sent updated clinicals to [facility] [place]. SW tasked HEALTH POLICY NURSE to [employer] check w/c van to [facility]. Update 9:30am: JAMES spoke with [...] agreeable to covering transport cost. SW tasked HEALTH POLICY NURSE to arrange w/c van to [facility]. SW tasked HEALTH POLICY NURSE to deliver transfer packet. JAMES spoke with Neuro Team to update. JAMES spoke with bedside RN to update. JAMES spoke with Allegra at [facility] to confirm DCP. RN Report: [phone] JAMES faxed d/c orders to [facility] [place] at [phone]. ? Medication Needs ? Financial ? Legal [...] for the patient. Nohemi Kohler LMSW Phone: [phone] Pager: [phone] LUGGER * Transfer - Tika Aldana APRN-PRODUCT DEVELOPMENT ACTUARY - 03/10/2018 1:01 PM BEEF LUGGER In-Hospital Transfer Note Admission Diagnosis: Left MCA [...] V2 per OSH. Pt was transferred to [facility] for further evaluation and treatment. CTA/P on arrival confirmed a left completed MCA stroke with with distal thrombus and was not an IR candidate. NIHSS improved to 7 post tPA. Repeat EKG with same ATA in V2. Cardiology was consulted. She was not a candidate for laborer tin can, so troponin was trended with monitoring. Echo [...] Information: - H/O non compliance with medication LIVE SOURCE OPERATOR - Coreg and Lisinopril restarted low dose- titrate up as tolerated - Aspirin and Plavix restarted 03/10 - SQ heparin started for DVT ppx Procedures With Dates: none Consults: Cardiology, Rehab medicine Follow-Up Items: Speech therapy recommendations for diet advancement Activity/Weight bearing status: Up with PT/OT Nutrition: Full liquid diet Discharge Plan: Transfer to floor with tele ITZ Workman Pager [phone] LUGGER * Case Mgmt DC Plan - Jose F Nohemi - 03/09/2018 1:55 PM BEEF LUGGER Case Management Progress NoteNAME:Adeline Garcia :1940 AGE: 78 y.o. ADMISSION DATE: 03/09/2018 DAYS ADMITTED: LOS: 0 days Todays Date: 03/09/2018 Plan Anticipate d/c to [facility] end of this week pending pt [...] of options. Pt endorsing interest in [facility]. Pt denied concerns at this time. JAMES spoke with pt's son Gautam ([phone]) to discuss DCP. JAMES educated on IPR level of care and benefit. SW provided list of options. Gautam endorsing interest in [facility], as this is closer to home. However, Gautam indicated that should pt require much assistance upon d/c he likely would be unable to assist. Gautam expressing potential interest in LTC placement if necessary. ? Info or Referral ? Discharge Planning Discharge Planning: Inpatient Rehabilitation SW sent referral to [facility]. ? Medication Needs ? Financial ? Legal [...] for the patient. Nohemi Kohler LMSW Phone: [phone] Pager: [phone] LUGGER * Case Mgmt DC Plan - Nohemi Kohler - 03/09/2018 1:52 PM BEEF LUGGER Case Management Admission AssessmentNAME:Adeline Garcia :1940 AGE: 78 y.o. ADMISSION DATE: 03/09/2018 DAYS ADMITTED: LOS: 0 days Todays Date: 03/09/2018 Source of Information: SW visited pt at bedside to completion assessment. Pt with aphasia, however was able to provide a majority of information. However, SW confirmed assessment information with pt's son Gautam ([phone]). Plan Plan: Case Management Assessment, Discharge Planning [...] Insurance: [place]) Additional Coverage: RX(fills at [employer] in [place]) ? Source of Income Source Of Income: [...] ? Outpatient Therapy PT: No OT: No ELECTRONIC RESOURCES LIBRARIAN: No ? Senior Living Facility/Retirement SNF: No NH: No ? Inpatient Rehab IPR: No ? Long-Term Acute Care Hospital LTACH: No ? Acute Hospital Stay Acute Hospital Stay: In the past Was patient's stay within the last 30 days?: No Nohemi Kohler LMSW Phone: [phone] Pager: [phone] LUGGER * Acute Stroke Response - Chrissy Kolb RN - 03/09/2018 6:23 AM BEEF LUGGER RN Stroke Activation Summary Date of Service: 03/09/2018 Adeline Garcia is a 78 y.o. female. : 1940 Allergies: Patient has no allergy information on record. Patient Arrival: 622 ASRT Arrival: 06 Location of Response : [place] Page Received: 2182 Clinical Presentation: Aphasia, Dysarthria, Right sided weakness [...] Narrative Not on file Chrissy Kolb RN LUGGER in this encounter Plan of Treatment Date/Time Name Priority Associated Diagnoses 03/09/2018 11:51 AM BEEF LUGGER UA REFLEX CULTURE LABEL Routine Order Schedule Name Priority Associated Diagnoses ONE TIME for 1 Occurrences starting 03/11/2018 EVENT MONITOR Routine as of this encounter Procedures Comments Procedure Name Priority Date/Time Associated Diagnosis CBC Routine 03/11/2018 5:10 AM BEEF LUGGER MAGNESIUM Routine 03/11/2018 5:10 AM BEEF LUGGER BASIC METABOLIC PANEL Routine 03/11/2018 5:10 AM BEEF LUGGER CBC Routine 03/10/2018 4:10 AM BEEF LUGGER PHOSPHORUS Routine 03/10/2018 4:10 AM BEEF LUGGER MAGNESIUM Routine 03/10/2018 4:10 AM BEEF LUGGER BASIC METABOLIC PANEL Routine 03/10/2018 4:[address] HEAD WO CONTRAST Routine 03/10/2018 3:53 AM BEEF LUGGER DEVICE EVALUATION - PPM STAT 03/09/2018 2:50 PM BEEF LUGGER ABDOMEN AP ONLY Routine 03/09/2018 1:21 PM BEEF LUGGER URINALYSIS MICROSCOPIC Routine 03/09/2018 REFLEX TO CULTURE 11:51 AM BEEF LUGGER URINALYSIS DIPSTICK Routine 03/09/2018 REFLEX TO CULTURE 11:51 AM BEEF LUGGER 2-D + DOPPLER Routine 03/09/2018 ECHOCARDIOGRAM 11:31 AM BEEF LUGGER TROPONIN-I STAT 03/09/2018 10:40 AM BEEF LUGGER CHEST SINGLE VIEW STAT 03/09/2018 8:29 AM BEEF LUGGER TROPONIN-I STAT 03/09/2018 8:06 AM BEEF LUGGER BNP (B-TYPE NATRIURETIC Routine 03/09/2018 PEPTI) 8:06 AM BEEF LUGGER CONSULT IV THERAPY TEAM STAT 03/09/2018 7:38 AM BEEF LUGGER TROPONIN-I STAT 03/09/2018 7:00 AM BEEF LUGGER PTT (APTT) Routine 03/09/2018 7:00 AM BEEF LUGGER PROTIME INR (PT) Routine 03/09/2018 7:00 AM BEEF LUGGER CBC AND DIFF Routine 03/09/2018 7:00 AM BEEF LUGGER PHOSPHORUS Routine 03/09/2018 7:00 AM BEEF LUGGER MAGNESIUM Routine 03/09/2018 7:00 AM BEEF LUGGER HEMOGLOBIN A1C Routine 03/09/2018 7:00 AM BEEF LUGGER LIPID PROFILE Routine 03/09/2018 7:00 AM BEEF LUGGER BASIC METABOLIC PANEL Routine 03/09/2018 7:[address] BRAIN PERF STAT 03/09/2018 6:50 AM BEEF LUGGER CTA NECK WO/W STAT 03/09/2018 CONTRAST+POST P 6:50 AM BEEF LUGGER CTA HEAD WO/W CONTR+POST STAT 03/09/2018 PRO 6:50 AM BEEF LUGGER ECG 12-LEAD STAT 03/09/2018 6:26 AM BEEF LUGGER in this encounter Results * MAGNESIUM (03/11/2018 5:10 AM BEEF LUGGER) Magnesium 1.7 1.6 - 2.6 mg/dL [facility] Specimen Blood Performing Organization Address [facility] Phone Number MAIN LAB [address] [place] [address] * BASIC METABOLIC PANEL (03/11/2018 5:10 AM BEEF LUGGER) Sodium 135 (L) 137 - 147 MMOL/L [...] for questions. Specimen Blood Performing Organization Address [facility] Phone Number [facility] [address] [place] [address] * CBC (03/11/2018 5:10 AM BEEF LUGGER) White Blood Cells 6.5 4.5 - 11.0 [...] MAIN LAB Specimen Blood Performing Organization Address [facility] Phone Number [facility] [address] [place] [address] * PHOSPHORUS (03/10/2018 4:10 AM BEEF LUGGER) Phosphorus 4.0Comment: NOTE NEW REFERENCE 2.0 - 4.5 MG/DL [facility] RANGES Specimen Blood Performing Organization Address [facility] Phone Number MAIN LAB [address] [place] [phone] * MAGNESIUM (03/10/2018 4:10 AM BEEF LUGGER) Magnesium 2.1 1.6 - 2.6 mg/dL [facility] MAIN [facility] Specimen Blood Performing Organization Address [facility] Phone Number MAIN LAB [address] [place] [phone] * BASIC METABOLIC PANEL (03/10/2018 4:10 AM BEEF LUGGER) Sodium 138 137 - 147 MMOL/L [facility] [...] for questions. Specimen Blood Performing Organization Address City/[facility]/Zipcode Phone Number MAIN LAB [address] [place] [address] * CBC (03/10/2018 4:10 AM BEEF LUGGER) White Blood Cells 6.5 4.5 - 11.0 [...] MAIN LAB Specimen Blood Performing Organization Address [facility] Phone Number [facility] [address] [place] [address] * CT HEAD WO CONTRAST (03/10/2018 3:53 AM BEEF LUGGER) Impressions Performed At 1.Development of subtle vague [...] Interface, Radiant Results - 03/10/2018 4:23 AM BEEF LUGGER EXAM: CT HEAD CLINICAL INDICATION: Female, 78 [...] DEVICE EVALUATION - PPM (03/09/2018 2:50 PM BEEF LUGGER) Generator Aircraft Lay Out Worker [place] OTHER OUTSIDE LAB Generator Model # Accent DR RF 9919 OTHER OUTSIDE LAB Generator Serial # [id number] OTHER OUTSIDE LAB Generator Implnat Date 03/01/13 OTHER OUTSIDE LAB Device Mode DDDR OTHER OUTSIDE LAB Lower Rate Limit 65 OTHER OUTSIDE LAB Atrial Lead Aircraft Lay Out Worker [facility] OTHER OUTSIDE LAB Atrial Lead Model # Tendril STS 2088TC - 46cm OTHER OUTSIDE LAB Atrial Lead Serial # [id number] OTHER OUTSIDE LAB Atrial Lead Implant Date 03/01/13 OTHER OUTSIDE LAB RV Lead Aircraft Lay Out Worker [facility] OTHER OUTSIDE LAB RV Lead Model # Tendril STS 2088TC - 52cm OTHER OUTSIDE LAB RV Lead Serial # [id number] OTHER OUTSIDE LAB RV Lead Implant Date 03/01/13 OTHER OUTSIDE LAB Initial Rhythm -VS OTHER OUTSIDE LAB Underlying Rhythm SR 80's OTHER OUTSIDE LAB Upper Rate Limit 125 OTHER OUTSIDE LAB Pace AV Delay 250 OTHER OUTSIDE LAB Sense AV Delay 225 OTHER OUTSIDE LAB -VS% 34 OTHER OUTSIDE LAB -SPORTS BROADCASTING INTERNSHIP% <1 OTHER OUTSIDE LAB -VS% 65 OTHER OUTSIDE LAB AP-SPORTS BROADCASTING INTERNSHIP% <1 OTHER OUTSIDE LAB # Mode S. [...] * ABDOMEN AP ONLY (03/09/2018 1:21 PM BEEF LUGGER) Impressions Performed At No indwelling metal objects [...] Interface, Radiant Results - 03/09/2018 4:34 PM BEEF LUGGER ABDOMEN AP ONLY Clinical Indication: Female, 78 [...] on 03/09/2018 1:29 PM. Performing Organization Address [facility] Phone Number RAD RESULTS * URINALYSIS MICROSCOPIC REFLEX TO CULTURE (03/09/2018 11:51 AM BEEF LUGGER) WBCs,UA 0-2 0 - 2 /HPF [facility] MA[facility] RBCs,UA 0-2 0 - 3 /HPF [facility] Comment,UA Urine submitted for reflex [facility] culture if criteria are met:WBC>10, positive nitrite and/or >=1+ leukocyte esterase. If quantity is not sufficient, an addendum will follow. Squamous Epithelial Cells 0-2 0 - 5 [facility] Specimen Urine Performing Organization Address [facility] [place] Phone Number MAIN LAB [address] [place] [address] * URINALYSIS DIPSTICK REFLEX TO CULTURE (03/09/2018 11:51 AM BEEF LUGGER) Color,UA STRAW [facility] Turbidity,UA CLEAR CLEAR-CLEAR [facility] Specific [place]-Urine 1.020 1.003 - 1.035 [facility] MAIN LAB [...] MAIN LAB Specimen Urine Performing Organization Address [facility] [place] Phone Number MAIN LAB [address] [place] [address] * 2-D + DOPPLER ECHOCARDIOGRAM (03/09/2018 11:31 AM BEEF LUGGER) IVS 0.96 0.6 - 0.9 cm OTHER [...] m2 OTHER OUTSIDE LAB CV ECHO PV OPTICIAN APPRENTICE ANGEL Callahan OTHER OUTSIDE LAB FS 16.43 28 - 44 % OTHER OUTSIDE LAB EF 27.93 % OTHER OUTSIDE LAB LV mass 194.37 66 - 150 g OTHER OUTSIDE LAB RWT 0.31 <=0.42 OTHER OUTSIDE LAB E/A ratio 0.76 OTHER OUTSIDE LAB E/E' ratio 14.50 OTHER OUTSIDE LAB Left Atrium Index 50.93 16 - 34 OTHER OUTSIDE LAB Cardiology Ultrasound Siemens [id number] OTHER OUTSIDE LAB Machine Left Ventricle Mass [...] OUTSIDE LAB * TROPONIN-I (03/09/2018 10:40 AM BEEF LUGGER) Troponin-I 0.78 (H) 0.0 - 0.05 NG/ML [facility] MAIN LAB Specimen Blood Performing Organization Address City/State/Zipcode Phone Number MAIN LAB [address] [place] [address] * CHEST SINGLE VIEW (03/09/2018 8:29 AM BEEF LUGGER) Impressions Performed At Mild cardiomegaly with no [...] Interface, Radiant Results - 03/09/2018 11:21 AM BEEF LUGGER CHEST SINGLE VIEW Clinical history: Post TPA [...] on 03/09/2018 8:56 AM. Performing Organization Address [facility] Phone Number RAD RESULTS * BNP (B-TYPE NATRIURETIC PEPTI) (03/09/2018 8:06 AM BEEF LUGGER) B Type Natriuretic 334.0 (H) 0 - 100 PG/ML MAIN LAB Peptide Specimen Blood Performing Organization Address [facility] [place] LAB [address] [place] [address] * TROPONIN-I (03/09/2018 8:06 AM BEEF LUGGER) Troponin-I 0.74 (H) 0.0 - 0.05 NG/ML MAIN LAB Specimen Blood Performing Organization Address [facility] [place] LAB [address] [place] [address] * PHOSPHORUS (03/09/2018 7:00 AM BEEF LUGGER) Phosphorus 3.7Comment: NOTE NEW REFERENCE 2.0 - 4.5 MG/DL MAIN LAB RANGES Specimen Blood Performing Organization Address [facility] [place] LAB [address] [place] [address] * MAGNESIUM (03/09/2018 7:00 AM BEEF LUGGER) Magnesium 1.4 (L) 1.6 - 2.6 mg/dL MAIN LAB Specimen Blood Performing Organization Address [facility] [place] LAB [address] [place] [address] * TROPONIN-I (03/09/2018 7:00 AM BEEF LUGGER) Troponin-I 0.67 (H) 0.0 - 0.05 NG/ML MAIN LAB Specimen Blood Performing Organization Address [facility] [place] Number [place]IN LAB [address] [place] [address] * BASIC METABOLIC PANEL (03/09/2018 7:00 AM BEEF LUGGER) Sodium 136 (L) 137 - 147 MMOL/L [...] for questions. Specimen Blood Performing Organization Address City/[facility] Phone Number [facility] [address] [place] [address] * PTT (APTT) (03/09/2018 7:00 AM BEEF LUGGER) APTT 25.0Comment: NOTE NEW 24.0 - 36.5 SEC [facility] REFERENCE RANGES Specimen Blood Performing Organization Address [facility] Phone Number [facility] [address] [place] [address] * PROTIME INR (PT) (03/09/2018 7:00 AM BEEF LUGGER) INR 1.0 0.8 - 1.2 [facility] Specimen Blood Performing Organization Address [facility] Phone Number [facility] [address] [place] [phone] * CBC AND DIFF (03/09/2018 7:00 AM BEEF LUGGER) White Blood Cells 6.6 4.5 - 11.0 [...] MAIN LAB Specimen Blood Performing Organization Address [facility] Phone Number MAIN LAB [address] [place] [address] * HEMOGLOBIN A1C (03/09/2018 7:00 AM BEEF LUGGER) Hemoglobin A1C 6.4 (H) 4.0 - 6.0 % MAIN LAB Comment: The ADA recommends that most patients with type 1 and type 2 diabetes maintain an A1c level <7%. Specimen Blood Performing Organization Address [facility] Phone Number [facility] [address] [place] [address] * LIPID PROFILE (03/09/2018 7:00 AM BEEF LUGGER) Cholesterol 217 (H) <200 MG/DL [facility] MAIN [...] 130 mg/dL. Specimen Blood Performing Organization Address [facility] Phone Number MAIN LAB [address] [place] [address] * CTA NECK WO/W CONTRAST+POST P (03/09/2018 6:50 AM BEEF LUGGER) Impressions Performed At CTA head: [facility] RAD [...] Interface, Radiant Results - 03/09/2018 7:28 AM BEEF LUGGER EXAM: CTA HEAD AND NECK, CTA BRAIN [...] HEAD WO/W CONTR+POST PRO (03/09/2018 6:50 AM BEEF LUGGER) Impressions Performed At CTA head: [facility] RAD [...] Interface, Radiant Results - 03/09/2018 7:28 AM BEEF LUGGER EXAM: CTA HEAD AND NECK, CTA BRAIN [...] * CT BRAIN PERF (03/09/2018 6:50 AM BEEF LUGGER) Impressions Performed At CTA head: [facility] RAD [...] Interface, Radiant Results - 03/09/2018 7:28 AM BEEF LUGGER EXAM: CTA HEAD AND NECK, CTA BRAIN [...] Medication Order MAR Action 03/11/2018 8:06 AM BEEF LUGGER 81 mg aspirin chewable tablet 81 mg Given 81 mg, Oral, DAILY, First dose on Fri03/10/18 at 1315, Until Discontinued 81 mg Given 03/10/2018 1:51 PM BEEF LUGGER 03/11/2018 8:05 AM BEEF LUGGER 40 mg atorvastatin (LIPITOR) tablet 40 mg Given 40 mg, Oral, DAILY, First dose on Fri03/10/18 at 1315, Until Discontinued 40 mg Given 03/10/2018 1:51 PM BEEF LUGGER 03/11/2018 8:05 AM BEEF LUGGER 6.25 mg carvedilol (COREG) tablet 6.25 mg Given 6.25 mg, Oral, TWICE DAILY, First dose on Fri03/09/18 at 2100, Until Discontinued, Hold for heart rate < 60 bpm or systolic BP < 100, 6.25 mg Given 03/10/2018 8:04 PM BEEF LUGGER 6.25 mg Given 03/10/2018 9:15 AM BEEF LUGGER 03/11/2018 8:05 AM BEEF LUGGER 75 mg clopiDOGrel (PLAVIX) tablet 75 mg Given 75 mg, Oral, DAILY, First dose on Fri03/10/18 at 1245, Until Discontinued, This Medication can increase the risk of bleeding and may need to be held prior to surgery or invasive procedures. Consult physician in advance., 75 mg Given 03/10/2018 1:51 PM BEEF LUGGER 03/10/2018 9:15 AM BEEF LUGGER 100 mg docusate (COLACE) capsule 100 mg Given 100 mg, Oral, TWICE DAILY, First dose on Fri03/09/18 at 2100, Until Discontinued, Hold for loose stools, 100 mg Given 03/09/2018 8:22 PM BEEF LUGGER 03/11/2018 6:13 AM BEEF LUGGER 5,000 Units Abdomen:RLQ heparin (porcine) PF syringe 5,000 Units Given 5,000 Units, Subcutaneous, EVERY 8 HOURS, First dose on Fri03/10/18 at 1400, Until Discontinued, NOTE: This is a HIGH ALERT Medication., 5,000 Units Abdomen:LLQ Given 03/10/2018 10:32 PM BEEF LUGGER 5,000 Units Abdomen:LUQ Given 03/10/2018 1:53 PM BEEF LUGGER 03/09/2018 7:00 AM BEEF LUGGER 100 mL iohexol (OMNIPAQUE-350) 350 mg/mL Given injection 100 mL 100 mL, Intravenous, ONCE, 1 dose, Fri03/09/18 at 0700, NOTE: This is a HIGH ALERT Medication., 03/09/2018 7:47 AM BEEF LUGGER 10 mg labetalol (NORMODYNE) injection 10 mg Given 10 mg, Intravenous, NEEDED, 2 doses, Starting Fri03/09/18 at 0626, Until Fri03/09/18 at 0801, Blood Pressure..., , For SBP >=185mmHg and/or DBP >=110mmHg Push over ONE min. Dose to be DOUBLED every 15min, if needed. Max Qcwi=[id number]. Notify Physician if BP not controlled after TWO doses., 03/11/2018 8:05 AM BEEF LUGGER 5 mg lisinopril (PRINIVIL; ZESTRIL) tablet 5 Given mg 5 mg, Oral, DAILY, First dose on Fri03/10/18 at 1315, Until Discontinued 5 mg Given 03/10/2018 1:51 PM BEEF LUGGER 03/09/2018 12:00 PM BEEF LUGGER 1 g 100 mL/hr magnesium sulfate 1 g/D5W 100 mL IVPB Given - New 1 g, Intravenous, 100 mL, Administer Bag over 1 Hours, EVERY 1 HOUR FOR 4 DOSES, 4 doses, First dose on Fri03/09/18 at 0800, Last dose on Fri03/09/18 at 1100, Each 1gm delivers 8.1 mEq Magnesium., 1 g 100 mL/hr Given - New Bag 03/09/2018 10:43 AM BEEF LUGGER 1 g 100 mL/hr Given - New Bag 03/09/2018 9:41 AM BEEF LUGGER 03/10/2018 9:16 AM BEEF LUGGER 10 mL milk of magnesia (CONC) oral suspension Given 10 mL 10 mL, Oral, DAILY, First dose on Fri03/09/18 at 1515, Until Discontinued, May hold if BM within 24 hours of dose. 10 mL CONC=30 mL MOM, 03/09/2018 11:19 AM BEEF LUGGER 2 Diluted mL perflutren lipid microspheres (DEFINITY) Given injection 1-20 Diluted mL 1-20 Diluted mL, Intravenous, ONCE, 1 dose, Fri03/09/18 at 1115, NOTE: This is a HIGH ALERT Medication., MAC Procedure Area Only - Medications 03/10/2018 9:15 AM BEEF LUGGER 1 tablet senna/docusate (SENOKOT-S) tablet 1 Given tablet 1 tablet, Oral, TWICE DAILY, First dose on Fri03/09/18 at 2100, Until Discontinued, Hold for loose stools. If patient unable to take tablet, give 10 mL of senna/docusate (SENOKOT-S) solution. Send inTopOPPSet message to pharmacy., If patient unable to take tablet, give 10 mL of senna/docusate (SENOKOT-S) solution., 1 tablet Given 03/09/2018 8:22 PM BEEF LUGGER 03/09/2018 7:00 AM BEEF LUGGER 50 mL sodium chloride PF 0.9% injection 50 mL Given 50 mL, Intravenous, ONCE, 1 dose, Fri03/09/18 at 0700, DO NOT SEND this medication unless it is requested. This med is usually available in floor stock., Intra-procedure (IR) in this encounter
--- OUTSIDE RECORDS SUMMARY | 2018-03-16 15:00 | XMS REPORT | Encounter Summary ---
Author Author [facility] Organization [facility] Address Unknown Phone Unavailable Care Team Providers Care Ticket Sales Agent Name Role Phone No Pcp, Na PCP Unavailable Reason for Visit * Auth/Cert Referred By Contact Referred To Contact Status Reason Specialty Diagnoses / Procedures Diagnoses Stroke (cerebrum) (HCC) NSTEMI; Stroke Encounter Details Care Team Description Date Type Department Moon Kuhn MD [address] [place] [address] Arrived 03/09/2018 Hospital Cardiovascular Medicine Encounter Main [facility] [place] [address] Social History Date Tobacco Use Types Packs/Day Years Used Never Assessed Sex Assigned at Date Recorded Not on file Industry Job Start Date Occupation Not on file Not on file Not on file Travel End Travel History Travel Start No recent travel history available. as of this encounter Medications at Time [...] 5 mg tablet by mouth every morning. 03/10/2018 aspirin EC 81 mg tablet Take 81 mg by 0 mouth daily. Take with food. 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
--- OUTSIDE RECORDS SUMMARY | 2018-03-16 15:02 | XMS REPORT | Continuity of Care Document ---
Author Author [facility] Organization [facility] Address Unknown Phone Unavailable Allergies Active [...] UNSPECIFIED 10/29/2010 Ot 414.01 CORONARY ATHEROSCLEROSIS OF [place] CORON 10/29/2010 Ot 715.37 LOC OSTEOARTH NOS-ANKLE [...] Ot V58.63 10/11/2014 Ot V72.63 11/04/2014 NEWBEENA PULP TESTER-C Ot 244.9 11/04/2014 NEW, BEENA Alejo PULP TESTER-C Ot 250.40 11/04/2014 NEW, BENEA Alejo PULP TESTER-C Ot 263.9 11/04/2014 NEW, BEENA Alejo PULP TESTER-C Ot 268.9 11/04/2014 NEW, BEENA Alejo PULP TESTER-C Ot 272.4 11/04/2014 NEW, BEENA Alejo PULP TESTER-C Ot 276.7 11/04/2014 NEW, BEENA Alejo PULP TESTER-C Ot 285.21 11/04/2014 NEW, BEENA Alejo PULP TESTER-C Ot 404.10 11/04/2014 NEW, BEENA Alejo PULP TESTER-C Ot 414.00 11/04/2014 NEWBEENA PULP TESTER-C Ot 585.3 11/04/2014 NEW, BEENA Alejo PULP TESTER-C Ot 588.81 11/04/2014 BEENA DANIELSON PULP TESTER-C Ot 723.0 11/04/2014 NEW, BEENA Alejo PULP TESTER-C Ot 791.0 11/04/2014 NEW, BEENA Alejo PULP TESTER-C Ot 796.4 03/07/2015 Ot 735.0 03/07/2015 Ot V72.83 03/07/2015 Ot V74.8 03/07/2015 Ot 735.0 03/07/2015 Ot V64.3 03/07/2015 Ot 414.01 03/07/2015 Ot 735.0 03/07/2015 Ot V58.63 03/07/2015 Ot V72.63 03/07/2015 NEW, BEENA Alejo PULP TESTER-C Ot 244.9 03/07/2015 NEW, BEENA Alejo PULP TESTER-C Ot 250.40 03/07/2015 NEW, BEENA Alejo PULP TESTER-C Ot 263.9 03/07/2015 NEW, BEENA Alejo PULP TESTER-C Ot 268.9 03/07/2015 NEW, BEENA Alejo PULP TESTER-C Ot 272.4 03/07/2015 NEW, BEENA Alejo PULP TESTER-C Ot 276.7 03/07/2015 NEW, BEENA Alejo PULP TESTER-C Ot 285.21 03/07/2015 NEW, BEENA Alejo PULP TESTER-C Ot 404.10 03/07/2015 NEW, BEENA Alejo PULP TESTER-C Ot 414.00 03/07/2015 NEW, BEENA Alejo PULP TESTER-C Ot 585.3 03/07/2015 NEW, BEENA Alejo PULP TESTER-C Ot 588.81 03/07/2015 NEW, BEENA Alejo PULP TESTER-C Ot 723.0 03/07/2015 NEW, BEENA Alejo PULP TESTER-C Ot 791.0 03/07/2015 NEW, BEENA Alejo PULP TESTER-C Ot 796.4 03/30/2015 NEW, BEENA Alejo PULP TESTER-C Ot D63.1 03/30/2015 NEW, BEENA Alejo PULP TESTER-C Ot D72.819 03/30/2015 NEW, BEENA Alejo PULP TESTER-C Ot E03.9 03/30/2015 NEW, BEENA Alejo PULP TESTER-C Ot E11.29 03/30/2015 NEW, BEENA Alejo PULP TESTER-C Ot E46 03/30/2015 NEW, BEENA Alejo PULP TESTER-C Ot E55.9 03/30/2015 NEW, BEENA Alejo PULP TESTER-C Ot E78.5 03/30/2015 NEW, BEENA Alejo PULP TESTER-C Ot E87.5 03/30/2015 NEW, BEENA Alejo NP-C Ot I13.10 03/30/2015 NEW, BEENA Alejo PULP TESTER-C Ot I25.10 03/30/2015 NEW, BEENA Alejo NP-C Ot M48.02 03/30/2015 NEW, BEENA Alejo PULP TESTER-C Ot N18.4 03/30/2015 NEW, BEENA Alejo PULP TESTER-C Ot R80.9 05/28/2015 Ot 735.0 05/28/2015 Ot V72.83 05/28/2015 Ot V74.8 05/28/2015 Ot 735.0 05/28/2015 Ot V64.3 05/28/2015 Ot 414.01 05/28/2015 Ot 735.0 05/28/2015 Ot V58.63 05/28/2015 Ot V72.63 05/28/2015 NEW, BEENA Alejo PULP TESTER-C Ot 244.9 05/28/2015 NEW, BEENA Alejo PULP TESTER-C Ot 250.40 05/28/2015 NEW, BEENA Alejo PULP TESTER-C Ot 263.9 05/28/2015 NEW, BEENA Alejo PULP TESTER-C Ot 268.9 05/28/2015 NEW, BEENA Alejo PULP TESTER-C Ot 272.4 05/28/2015 NEW, BEENA Alejo PULP TESTER-C Ot 276.7 05/28/2015 NEW, BEENA Alejo PULP TESTER-C Ot 285.21 05/28/2015 NEW, BEENA Alejo PULP TESTER-C Ot 404.10 05/28/2015 NEW, BEENA Alejo PULP TESTER-C Ot 414.00 05/28/2015 NEW, BEENA Alejo PULP TESTER-C Ot 585.3 05/28/2015 NEW, BEENA G. PULP TESTER-C Ot 588.81 05/28/2015 NEW, BEENA Alejo PULP TESTER-C Ot 723.0 05/28/2015 NEW, BEENA Alejo PULP TESTER-C Ot 791.0 05/28/2015 NEW, BEENA Alejo PULP TESTER-C Ot 796.4 05/28/2015 NEW, BEENA Alejo PULP TESTER-C Ot D63.1 05/28/2015 NEW, BEENA Alejo PULP TESTER-C Ot D72.819 05/28/2015 NEW, BEENA Alejo PULP TESTER-C Ot E03.9 05/28/2015 NEW, BEENA Alejo PULP TESTER-C Ot E11.29 05/28/2015 NEW, BEENA Alejo PULP TESTER-C Ot E46 05/28/2015 NEW, BEENA Alejo PULP TESTER-C Ot E55.9 05/28/2015 NEW, BEENA Alejo PULP TESTER-C Ot E78.5 05/28/2015 NEW, BEENA Alejo PULP TESTER-C Ot E87.5 05/28/2015 NEW, BEENA Alejo PULP TESTER-C Ot I13.10 05/28/2015 NEW, BEENA Alejo PULP TESTER-C Ot I25.10 05/28/2015 NEW, BEENA Alejo PULP TESTER-C Ot M48.02 05/28/2015 NEW, BEENA Alejo PULP TESTER-C Ot N18.4 05/28/2015 NEW, BEENA Alejo PULP TESTER-C Ot R80.9 05/28/2015 DONNIE CARLTON APRN Ot [...] NEC 09/25/2015 Ot 414.01 CORONARY ATHEROSCLEROSIS OF [place] CORON 09/25/2015 Ot 735.0 HALLUX VALGUS 09/25/2015 Ot V58.63 LONG-TERM( CURRENT)USE OF ANTIPLATELET/AN 09/25/2015 Ot V72.63 PRE- PROCEDURAL LABORATORY EXAMINATION 09/25/2015 BEENA DANIELSON PULP TESTER-C Ot 244.9 HYPOTHYROIDISM NOS 09/25/2015 BEENA DANIELSON PULP TESTER-C Ot 250.40 DIAB W RENAL MANIFEST, TYPE II OR UNSPEC 09/25/2015 BEENA DANIELSON PULP TESTER-C Ot 263.9 PROTEIN-ANA MALNUTR NOS 09/25/2015 BEENA DANIELSON PULP TESTER-C Ot 268.9 VITAMIN D DEFICIENCY NOS 09/25/2015 BEENA DANIELSON PULP TESTER-C Ot 272.4 HYPERLIPIDEMIA NEC/NOS 09/25/2015 BEENA DANIELSON PULP TESTER-C Ot 276.7 HYPERPOTASSEMIA 09/25/2015 BEENA DANIELSON PULP TESTER-C Ot 285.21 ANEMIA IN CHRONIC KIDNEY DISEASE 09/25/2015 BEENA DANIELSON PULP TESTER-C Ot 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, BENIGN, 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 09/25/2015 BEENA DANIELSON PULP TESTER-C Ot 414.00 CORON ATHEROSCLER NOS TYPE VESSEL, NATIV 09/25/2015 BEENA DANIELSON PULP TESTER-C Ot 585.3 CHRONIC KIDNEY DISEASE, STAGE III (MODER 09/25/2015 BEENA DANIELSON PULP TESTER-C Ot 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 09/25/2015 BEENA DANIELSON PULP TESTER-C Ot 723.0 CERVICAL SPINAL STENOSIS 09/25/2015 BEENA DANIELSON PULP TESTER-C Ot 791.0 PROTEINURIA 09/25/2015 BEENA DANIELSON PULP TESTER-C Ot 796.4 ABN CLINICAL FINDING NEC 09/25/2015 BEENA DANIELSON PULP TESTER-C Ot D63.1 ANEMIA IN CHRONIC KIDNEY DISEASE 09/25/2015 BEENA DANIELSON PULP TESTER-C Ot D72.819 DECREASED WHITE BLOOD CELL COUNT, UNSPEC 09/25/2015 BEENA DANIELSON PULP TESTER-C Ot E03.9 HYPOTHYROIDISM, UNSPECIFIED 09/25/2015 NEW, BEENA Alejo PULP TESTER-C Ot E11.29 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 09/25/2015 NEW, BEENA Alejo PULP TESTER-C Ot E46 UNSPECIFIED PROTEIN-[place]ORIE MALNUTRITION 09/25/2015 NEW, BEENA Alejo PULP TESTER-C Ot E55.9 VITAMIN D DEFICIENCY, UNSPECIFIED 09/25/2015 NEW, BEENA Alejo PULP TESTER-C Ot E78.5 HYPERLIPIDEMIA, UNSPECIFIED 09/25/2015 NEW, BEENA Alejo PULP TESTER-C Ot E87.5 HYPERKALEMIA 09/25/2015 NEW, BEENA Alejo PULP TESTER-C Ot 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, W S 09/25/2015 NEW, BEENA Alejo PULP TESTER-C Ot I25.10 ATHSCL HEART DISEASE OF [place] CORONARY 09/25/2015 NEW, BEENA Alejo PULP TESTER-C Ot M48.02 SPINAL STENOSIS, CERVICAL REGION 09/25/2015 NEW, BEENA Alejo PULP TESTER-C Ot N18.4 CHRONIC KIDNEY DISEASE, STAGE 4 (SEVERE) 09/25/2015 NEW, BEENA Alejo PULP TESTER-C Ot R80.9 PROTEINURIA, UNSPECIFIED 09/26/2015 NEW, BEENA Alejo PULP TESTER-C Ot D63.1 ANEMIA IN CHRONIC KIDNEY DISEASE 09/26/2015 NEW, BEENA Alejo PULP TESTER-C Ot D72.819 DECREASED WHITE BLOOD CELL COUNT, UNSPEC 09/26/2015 NEW, BEENA Alejo NP-C Ot E03.9 HYPOTHYROIDISM, UNSPECIFIED 09/26/2015 NEW, BEENA Alejo PULP TESTER-C Ot 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 PULP TESTER-C Ot I25.10 ATHSCL HEART DISEASE OF [place] CORONARY 09/26/2015 NEW, BEENA MahoneySheree PULP TESTER-C Ot M48.02 SPINAL STENOSIS, CERVICAL REGION 09/26/2015 NEW, BEENA G. 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 ASSISTANT 09/27/2015 NEW, BEENA MaruSheree PULP TESTER-C Ot E46 UNSPECIFIED PROTEIN-CALORIE MALNUTRITION 09/27/2015 NEW, BEENA GSheree PULP TESTER-C Ot E55.9 VITAMIN D DEFICIENCY, UNSPECIFIED 09/27/2015 NEW, BEENA GSheree PULP TESTER-C Ot E78.5 HYPERLIPIDEMIA, UNSPECIFIED 09/27/2015 NEW, BEENA MahoneySheree PULP TESTER-C Ot E87.5 HYPERKALEMIA 09/27/2015 NEW, BEENA MahoneySheree PULP TESTER-C Ot 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, W S 09/27/2015 NEW, BEENA MaruSheree PULP TESTER-C Ot I25.10 ATHSCL HEART DISEASE OF [place] CORONARY 09/27/2015 NEW, BEENA GSheree PULP TESTER-C Ot M48.02 SPINAL STENOSIS, CERVICAL REGION 09/27/2015 NEW, BEENA GSheree PULP TESTER-C Ot 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 09/27/2015 NEW, BEENA GSheree PULP TESTER-C Ot R80.9 PROTEINURIA, UNSPECIFIED 10/02/2015 NEW, BEENA MaruSheree PULP TESTER-C Ot E11.29 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 10/02/2015 NEW, BEENA MaruSheree PULP TESTER-C Ot N18.4 CHRONIC KIDNEY DISEASE, STAGE 4 (SEVERE) 10/31/2015 NEW, BEENA Alejo PULP TESTER-C Ot D63.1 ANEMIA IN CHRONIC KIDNEY DISEASE 10/31/2015 NEW, BEENA Alejo PULP TESTER-C Ot D72.819 DECREASED WHITE BLOOD CELL COUNT, UNSPEC 10/31/2015 NEW, BEENA Alejo PULP TESTER-C Ot E03.9 HYPOTHYROIDISM, UNSPECIFIED 10/31/2015 NEW, BEENA Alejo PULP TESTER-C Ot 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 ASSISTANT 10/31/2015 NEW, BEENA MahoneySheree PULP TESTER-C Ot E46 UNSPECIFIED PROTEIN-CALORIE MALNUTRITION 10/31/2015 NEW, BEENA Alejo PULP TESTER-C Ot E55.9 VITAMIN D DEFICIENCY, UNSPECIFIED 10/31/2015 NEW, BEENA Alejo PULP TESTER-C Ot E78.5 HYPERLIPIDEMIA, UNSPECIFIED 10/31/2015 NEW, BEENA Alejo PULP TESTER-C Ot E87.5 HYPERKALEMIA 10/31/2015 NEW, BEENA Alejo PULP TESTER-C Ot 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, W S 10/31/2015 NEW, BEENA MahoneySheree PULP TESTER-C Ot I25.10 ATHSCL HEART DISEASE OF [place] CORONARY 10/31/2015 NEW, BEENA Alejo PULP TESTER-C Ot M48.02 SPINAL STENOSIS, CERVICAL REGION 10/31/2015 NEW, BEENA Alejo PULP TESTER-C Ot N18.4 CHRONIC KIDNEY DISEASE, STAGE 4 (SEVERE) 10/31/2015 NEW, BEENA Alejo PULP TESTER-C Ot 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 10/31/2015 NEW, BEENA GSheree PULP TESTER-C Ot R80.9 PROTEINURIA, UNSPECIFIED 12/24/2015 NEW, BEENA MahoneySheree PULP TESTER-C Ot D63.1 ANEMIA IN CHRONIC KIDNEY DISEASE 12/24/2015 NEW, BEENA Alejo PULP TESTER-C Ot D72.819 DECREASED WHITE BLOOD CELL COUNT, UNSPEC 12/24/2015 NEW, BEENA GSheree PULP TESTER-C Ot E03.9 HYPOTHYROIDISM, UNSPECIFIED 12/24/2015 NEW, BEENA MahoneySheree PULP TESTER-C Ot 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 ASSISTANT 12/24/2015 NEW, BEENA Alejo PULP TESTER-C Ot E46 UNSPECIFIED PROTEIN-CALORIE MALNUTRITION 12/24/2015 NEW, BEENA MahoneySheree PULP TESTER-C Ot E55.9 VITAMIN D DEFICIENCY, UNSPECIFIED 12/24/2015 NEW, BEENA Alejo NP-C Ot E78.5 HYPERLIPIDEMIA, UNSPECIFIED 12/24/2015 NEW, BEENA Alejo PULP TESTER-C Ot E87.5 HYPERKALEMIA 12/24/2015 BEENA DANIELSON PULP TESTER-C Ot 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, W S 12/24/2015 BEENA DANIELSON NP-C Ot I25.10 ATHSCL HEART DISEASE OF [place] CORONARY 12/24/2015 NEW, BEENA Alejo PULP TESTER-C Ot M48.02 SPINAL STENOSIS, CERVICAL REGION 12/24/2015 NEW, BEENA Alejo PULP TESTER-C Ot N18.4 CHRONIC KIDNEY DISEASE, STAGE 4 (SEVERE) 12/24/2015 NEW, BEENA lAejo NP-C Ot 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 12/24/2015 BEENA DANIELSON PULP TESTER-C Ot R80.9 PROTEINURIA, UNSPECIFIED 03/27/2016 Ot 414.01 CORONARY ATHEROSCLEROSIS OF [place] CORON 03/27/2016 Ot 735.0 HALLUX VALGUS 03/27/2016 Ot V58.63 LONG-TERM( CURRENT)USE OF ANTIPLATELET/AN 03/27/2016 Ot V72.63 PRE- PROCEDURAL LABORATORY EXAMINATION 03/27/2016 BEENA DANIELSON PULP TESTER-C Ot 244.9 HYPOTHYROIDISM NOS 03/27/2016 JAGJIT, BEEAN Alejo PULP TESTER-C Ot 250.40 DIAB W RENAL MANIFEST, TYPE II OR UNSPEC 03/27/2016 BEENA DANIELSON PULP TESTER-C Ot 263.9 PROTEIN-ANA MALNUTR NOS 03/27/2016 BEENA DANIELSON PULP TESTER-C Ot 268.9 VITAMIN D DEFICIENCY NOS 03/27/2016 JAGJIT, BEENA Alejo PULP TESTER-C Ot 272.4 HYPERLIPIDEMIA NEC/NOS 03/27/2016 NEW, BEENA Alejo PULP TESTER-C Ot 276.7 HYPERPOTASSEMIA 03/27/2016 JAGJIT, BEENA Alejo PULP TESTER-C Ot 285.21 ANEMIA IN CHRONIC KIDNEY DISEASE 03/27/2016 JAGJIT, BEENA Alejo PULP TESTER-C Ot 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, BENIGN, 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 03/27/2016 JAGJIT, BEENA Alejo PULP TESTER-C Ot 414.00 CORON ATHEROSCLER NOS TYPE VESSEL, NATIV 03/27/2016 JAGJIT, BEENA Alejo PULP TESTER-C Ot 585.3 CHRONIC KIDNEY DISEASE, STAGE III (MODER 03/27/2016 NEWBEENA PULP TESTER-C Ot 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 03/27/2016 BEENA DANIELSON PULP TESTER-C Ot 723.0 CERVICAL SPINAL STENOSIS 03/27/2016 BEENA DANIELSON PULP TESTER-C Ot 791.0 PROTEINURIA 03/27/2016 BEENA DANIELSON PULP TESTER-C Ot 796.4 ABN CLINICAL FINDING NEC 03/27/2016 BEENA DANIELSON PULP TESTER-C Ot D63.1 ANEMIA IN CHRONIC KIDNEY DISEASE 03/27/2016 BEENA DANIELSON PULP TESTER-C Ot D72.819 DECREASED WHITE BLOOD CELL COUNT, UNSPEC 03/27/2016 BEENA DANIELSON PULP TESTER-C Ot E03.9 HYPOTHYROIDISM, UNSPECIFIED 03/27/2016 BEENA DANIELSON PULP TESTER-C Ot E11.29 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 03/27/2016 BEENA DANIELSON PULP TESTER-C Ot E46 UNSPECIFIED PROTEIN-CALORIE MALNUTRITION 03/27/2016 BEENA DANIELSON PULP TESTER-C Ot E55.9 VITAMIN D DEFICIENCY, UNSPECIFIED 03/27/2016 BEENA DANIELSON PULP TESTER-C Ot E78.5 HYPERLIPIDEMIA, UNSPECIFIED 03/27/2016 BEENA DANIELSON PULP TESTER-C Ot E87.5 HYPERKALEMIA 03/27/2016 BEENA DANIELSON PULP TESTER-C Ot 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, W S 03/27/2016 BEENA DANIELSON PULP TESTER-C Ot I25.10 ATHSCL HEART DISEASE OF [place] CORONARY 03/27/2016 BEENA DANIELSON PULP TESTER-C Ot M48.02 SPINAL STENOSIS, CERVICAL REGION 03/27/2016 BEENA DANIELSON PULP TESTER-C Ot N18.4 CHRONIC KIDNEY DISEASE, STAGE 4 (SEVERE) 03/27/2016 BEENA DANIELSON PULP TESTER-C Ot R80.9 PROTEINURIA, UNSPECIFIED 03/27/2016 BEENA DANIELSON PULP TESTER-C Ot D63.1 ANEMIA IN CHRONIC KIDNEY DISEASE 03/27/2016 BEENA DANIELSON PULP TESTER-C Ot D72.819 DECREASED WHITE BLOOD CELL COUNT, UNSPEC 03/27/2016 BEENA DANIELSON PULP TESTER-C Ot E03.9 HYPOTHYROIDISM, UNSPECIFIED 03/27/2016 NEW, BEENA Alejo PULP TESTER-C Ot 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 ASSISTANT 03/27/2016 NEW, BEENA Alejo PULP TESTER-C Ot E46 UNSPECIFIED PROTEIN-CALORIE MALNUTRITION 03/27/2016 NEW, BEENA Alejo PULP TESTER-C Ot E55.9 VITAMIN D DEFICIENCY, UNSPECIFIED 03/27/2016 NEW, BEENA MahoneySheree PULP TESTER-C Ot E78.5 HYPERLIPIDEMIA, UNSPECIFIED 03/27/2016 NEW, BEENA MahoneySheree PULP TESTER-C Ot E87.5 HYPERKALEMIA 03/27/2016 NEW, BEENA MahoneySheree PULP TESTER-C Ot 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, W S 03/27/2016 NEW, BEENA MahoneySheree PULP TESTER-C Ot I25.10 ATHSCL HEART DISEASE OF [place] CORONARY 03/27/2016 NEW, BEENA MahoneySheree PULP TESTER-C Ot M48.02 SPINAL STENOSIS, CERVICAL REGION 03/27/2016 NEW, BEENA GSheree PULP TESTER-C Ot 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 03/27/2016 NEW, BEENA MahoneySheree PULP TESTER-C Ot R80.9 PROTEINURIA, UNSPECIFIED 03/27/2016 NEW, BEENA Alejo PULP TESTER-C Ot D63.1 ANEMIA IN CHRONIC KIDNEY DISEASE 03/27/2016 NEW, BEENA Alejo PULP TESTER-C Ot D72.819 DECREASED WHITE BLOOD CELL COUNT, UNSPEC 03/27/2016 NEW, BEENA Alejo PULP TESTER-C Ot E03.9 HYPOTHYROIDISM, UNSPECIFIED 03/27/2016 NEW, BEENA MahoneySheree PULP TESTER-C Ot 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 ASSISTANT 03/27/2016 NEW, BEENA MahoneySheree PULP TESTER-C Ot E46 UNSPECIFIED PROTEIN-CALORIE MALNUTRITION 03/27/2016 NEW, BEENA MahoneySheree PULP TESTER-C Ot E55.9 VITAMIN D DEFICIENCY, UNSPECIFIED 03/27/2016 NEW, BEENA GSheree PULP TESTER-C Ot E78.5 HYPERLIPIDEMIA, UNSPECIFIED 03/27/2016 NEW, BEENA MahoneySheree PULP TESTER-C Ot E87.5 HYPERKALEMIA 03/27/2016 NEW, BEENA MahoneySheree PULP TESTER-C Ot 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 PULP TESTER-C Ot D50.9 IRON DEFICIENCY ANEMIA, UNSPECIFIED 03/29/2016 NEW, BEENA GSheree PULP TESTER-C Ot D63.1 ANEMIA IN CHRONIC KIDNEY DISEASE 03/29/2016 NEW, BEENA GSheree PULP TESTER-C Ot N18.3 CHRONIC KIDNEY DISEASE, STAGE 3 (MODERAT 04/01/2016 NEW, BEENA Alejo PULP TESTER-C Ot D50.9 IRON DEFICIENCY ANEMIA, UNSPECIFIED 04/01/2016 NEW, BEENA MaruSheree PULP TESTER-C Ot D63.1 ANEMIA IN CHRONIC KIDNEY DISEASE 04/01/2016 NEW, BEENA MahoneySheree PULP TESTER-C Ot N18.3 CHRONIC KIDNEY DISEASE, STAGE 3 (MODERAT 04/03/2016 NEW, BEENA G. PULP TESTER-C Ot D50.9 IRON DEFICIENCY ANEMIA, UNSPECIFIED 04/03/2016 NEW, BEENA Maru. PULP TESTER-C Ot D63.1 ANEMIA IN CHRONIC KIDNEY DISEASE 04/03/2016 NEW, BEENA GSheree PULP TESTER-C Ot N18.3 CHRONIC KIDNEY DISEASE, STAGE 3 (MODERAT 04/03/2016 NEW, BEENA Maru. PULP TESTER-C Ot D50.9 IRON DEFICIENCY ANEMIA, UNSPECIFIED 04/03/2016 NEW, BEENA G. PULP TESTER-C Ot D63.1 ANEMIA IN CHRONIC KIDNEY DISEASE 04/03/2016 NEW, BEENA G. PULP TESTER-C Ot N18.3 CHRONIC KIDNEY DISEASE, STAGE 3 (MODERAT 04/05/2016 NEW, BEENA G. PULP TESTER-C Ot D50.9 IRON DEFICIENCY ANEMIA, UNSPECIFIED 04/05/2016 NEW, BEENA G. PULP TESTER-C Ot D63.1 ANEMIA IN CHRONIC KIDNEY DISEASE 04/05/2016 NEW, BEENA GSheree PULP TESTER-C Ot N18.3 CHRONIC KIDNEY DISEASE, STAGE 3 (MODERAT 05/06/2016 NEW, BEENA G. PULP TESTER-C Ot D50.9 IRON DEFICIENCY ANEMIA, UNSPECIFIED 05/06/2016 NEW, BEENA Alejo PULP TESTER-C Ot D63.1 ANEMIA IN CHRONIC KIDNEY DISEASE 05/06/2016 NEW, BEENA Alejo PULP TESTER-C Ot N18.3 CHRONIC KIDNEY DISEASE, STAGE 3 (MODERAT 06/25/2016 NEW, BEENA Alejo PULP TESTER-C Ot D50.9 IRON DEFICIENCY ANEMIA, UNSPECIFIED 06/25/2016 NEW, BEENA Alejo PULP TESTER-C Ot D63.1 ANEMIA IN CHRONIC KIDNEY DISEASE 06/25/2016 NEW, BEENA Alejo PULP TESTER-C Ot N18.3 CHRONIC KIDNEY DISEASE, STAGE 3 (MODERAT 08/18/2016 NEW, BEENA Alejo PULP TESTER-C Ot D63.1 ANEMIA IN CHRONIC KIDNEY DISEASE 08/18/2016 NEW, BEENA Alejo PULP TESTER-C Ot D72.819 DECREASED WHITE BLOOD CELL COUNT, UNSPEC 08/18/2016 NEW, BEENA Alejo PULP TESTER-C Ot E03.9 HYPOTHYROIDISM, UNSPECIFIED 08/18/2016 NEW, BEENA Alejo PULP TESTER-C Ot E11.29 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 08/18/2016 NEW, BEENA Alejo PULP TESTER-C Ot E46 UNSPECIFIED PROTEIN-CALORIE MALNUTRITION 08/18/2016 NEW, BEENA Alejo PULP TESTER-C Ot E55.9 VITAMIN D DEFICIENCY, UNSPECIFIED 08/18/2016 NEW, BEENA Alejo PULP TESTER-C Ot E78.5 HYPERLIPIDEMIA, UNSPECIFIED 08/18/2016 NEW, BEENA Alejo PULP TESTER-C Ot E87.5 HYPERKALEMIA 08/18/2016 NEW, BEENA MahoneySheree PULP TESTER-C Ot 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, W S 08/18/2016 NEW, BEENA MahoneySheree PULP TESTER-C Ot I25.10 ATHSCL HEART DISEASE OF [place] CORONARY 08/18/2016 NEW, BEENA MahoneySheree PULP TESTER-C Ot M48.02 SPINAL STENOSIS, CERVICAL REGION 08/18/2016 NEW, BEENA Alejo PULP TESTER-C Ot N18.4 CHRONIC KIDNEY DISEASE, STAGE 4 (SEVERE) 08/18/2016 NEW, BEENA MahoneySheree PULP TESTER-C Ot 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 08/18/2016 NEW, BEENA MahoneySheree PULP TESTER-C Ot R80.9 PROTEINURIA, UNSPECIFIED 08/18/2016 NEW, BEENA Alejo PULP TESTER-C Ot D63.1 ANEMIA IN CHRONIC KIDNEY DISEASE 08/18/2016 NEW, BEENA Alejo PULP TESTER-C Ot D72.819 DECREASED WHITE BLOOD CELL COUNT, UNSPEC 08/18/2016 NEW, BEENA Alejo PULP TESTER-C Ot E03.9 HYPOTHYROIDISM, UNSPECIFIED 08/18/2016 NEW, BEENA Alejo PULP TESTER-C Ot E11.29 TYPE 2 DIABETES MELLITUS W [facility] DIABETIC 08/18/2016 NEW, BEENA Alejo PULP TESTER-C Ot E46 UNSPECIFIED PROTEIN-[place]IE MALNUTRITION 08/18/2016 NEW, BEENA Alejo PULP TESTER-C Ot E55.9 VITAMIN D DEFICIENCY, UNSPECIFIED 08/18/2016 NEW, BEENA Alejo PULP TESTER-C Ot E78.5 HYPERLIPIDEMIA, UNSPECIFIED 08/18/2016 NEW, BEENA Alejo PULP TESTER-C Ot E87.5 HYPERKALEMIA 08/18/2016 NEW, BEENA Alejo PULP TESTER-C Ot 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, W S 08/18/2016 NEW, BEENA Alejo PULP TESTER-C Ot I25.10 ATHSCL HEART DISEASE OF [place] CORONARY 08/18/2016 NEW, BEENA Alejo PULP TESTER-C Ot M48.02 SPINAL STENOSIS, CERVICAL REGION 08/18/2016 NEW, BEENA Alejo PULP TESTER-C Ot N18.4 CHRONIC KIDNEY DISEASE, STAGE 4 (SEVERE) 08/18/2016 NEW, BEENA Alejo PULP TESTER-C Ot 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 08/18/2016 NEW, BEENA Alejo PULP TESTER-C Ot R80.9 PROTEINURIA, UNSPECIFIED 09/06/2016 NEW, BEENA Alejo PULP TESTER-C Ot D63.1 ANEMIA IN CHRONIC KIDNEY DISEASE 09/06/2016 NEW, BEENA Alejo PULP TESTER-C Ot D72.819 DECREASED WHITE BLOOD CELL COUNT, UNSPEC 09/06/2016 NEW, BEENA Alejo PULP TESTER-C Ot E03.9 HYPOTHYROIDISM, UNSPECIFIED 09/06/2016 NEW, BEENA Alejo PULP TESTER-C Ot E11.29 TYPE 2 DIABETES MELLITUS W [facility] DIABETIC 09/06/2016 NEW, BEENA Alejo PULP TESTER-C Ot E46 UNSPECIFIED PROTEIN-CALORIE MALNUTRITION 09/06/2016 NEW, BEENA Alejo PULP TESTER-C Ot E55.9 VITAMIN D DEFICIENCY, UNSPECIFIED 09/06/2016 NEW, BEENA MaruSheree PULP TESTER-C Ot E78.5 HYPERLIPIDEMIA, UNSPECIFIED 09/06/2016 NEW, BEENA MaruSheree PULP TESTER-C Ot E87.5 HYPERKALEMIA 09/06/2016 NEW, BEENA MaruSheree PULP TESTER-C Ot 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, W S 09/06/2016 NEW, BEENA MaruSheree PULP TESTER-C Ot I25.10 ATHSCL HEART DISEASE OF [place] CORONARY 09/06/2016 NEW, BEENA Alejo PULP TESTER-C Ot M48.02 SPINAL STENOSIS, CERVICAL REGION 09/06/2016 NEW, BEENA MaruSheree PULP TESTER-C Ot N18.4 CHRONIC KIDNEY DISEASE, STAGE 4 (SEVERE) 09/06/2016 NEW, BEENA Alejo PULP TESTER-C Ot 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 09/06/2016 NEW, BEENA MaruSheree PULP TESTER-C Ot R80.9 PROTEINURIA, UNSPECIFIED 03/21/2017 NEW, BEENA Alejo PULP TESTER-C Ot 244.9 HYPOTHYROIDISM NOS 03/21/2017 NEW, BEENA Alejo PULP TESTER-C Ot 250.40 DIAB W RENAL MANIFEST, TYPE II OR UNSPEC 03/21/2017 NEW, BEENA Maru. PULP TESTER-C Ot 263.9 PROTEIN-ANA MALNUTR NOS 03/21/2017 NEW, BEENA Maru. PULP TESTER-C Ot 268.9 VITAMIN D DEFICIENCY NOS 03/21/2017 NEW, BEENA MaruSheree PULP TESTER-C Ot 272.4 HYPERLIPIDEMIA NEC/NOS 03/21/2017 NEW, BEENA Mahoney. 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 PULP TESTER-C Ot 414.00 CORON ATHEROSCLER NOS TYPE VESSEL, NATIV 03/21/2017 NEW, BEENA Alejo PULP TESTER-C Ot 585.3 CHRONIC KIDNEY DISEASE, STAGE III (MODER 03/21/2017 NEW, BEENA Alejo PULP TESTER-C Ot 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 03/21/2017 NEW, BEENA Alejo PULP TESTER-C Ot 723.0 CERVICAL SPINAL STENOSIS 03/21/2017 NEW, BEENA MaruSheree PULP TESTER-C Ot 791.0 PROTEINURIA 03/21/2017 NEW, BEENA MaruSheree PULP TESTER-C Ot 796.4 ABN CLINICAL FINDING NEC 03/21/2017 NEW, BEENA MaruSheree PULP TESTER-C Ot D63.1 ANEMIA IN CHRONIC KIDNEY DISEASE 03/21/2017 NEW, BEENA GSheree PULP TESTER-C Ot D72.819 DECREASED WHITE BLOOD CELL COUNT, UNSPEC 03/21/2017 NEW, BEENA MaruSheree PULP TESTER-C Ot E03.9 HYPOTHYROIDISM, UNSPECIFIED 03/21/2017 NEW, BEENA MaruSheree PULP TESTER-C Ot E11.29 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 03/21/2017 NEW, BEENA MaruSheree PULP TESTER-C Ot E46 UNSPECIFIED PROTEIN-[place] MALNUTRITION 03/21/2017 NEW, BEENA MaruSheree PULP TESTER-C Ot E55.9 VITAMIN D DEFICIENCY, UNSPECIFIED 03/21/2017 NEW, BEENA MaruSheree PULP TESTER-C Ot E78.5 HYPERLIPIDEMIA, UNSPECIFIED 03/21/2017 NEW, BEENA MaruSheree PULP TESTER-C Ot E87.5 HYPERKALEMIA 03/21/2017 NEW, BEENA MaruSheree PULP TESTER-C Ot 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, W S 03/21/2017 NEW, BEENA MaruSheree PULP TESTER-C Ot I25.10 ATHSCL HEART DISEASE OF [place] CORONARY 03/21/2017 NEW, BEENA MaruSheree PULP TESTER-C Ot M48.02 SPINAL STENOSIS, CERVICAL REGION 03/21/2017 NEW, BEENA MaruSheree PULP TESTER-C Ot N18.4 CHRONIC KIDNEY DISEASE, STAGE 4 (SEVERE) 03/21/2017 NEW, BEENA MaruSheree PULP TESTER-C Ot R80.9 PROTEINURIA, UNSPECIFIED 03/21/2017 NEW, BEENA MaruSheree PULP TESTER-C Ot D63.1 ANEMIA IN CHRONIC KIDNEY DISEASE 03/21/2017 NEW, BEENA MaruSheree PULP TESTER-C Ot D72.819 DECREASED WHITE BLOOD CELL COUNT, UNSPEC 03/21/2017 NEW, BEENA MaruSheree PULP TESTER-C Ot E03.9 HYPOTHYROIDISM, UNSPECIFIED 03/21/2017 NEW, BEENA Alejo PULP TESTER-C Ot 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 ASSISTANT 03/21/2017 NEW, BEENA Alejo PULP TESTER-C Ot E46 UNSPECIFIED PROTEIN-CALORIE MALNUTRITION 03/21/2017 NEW, BEENA MahoneySheree PULP TESTER-C Ot E55.9 VITAMIN D DEFICIENCY, UNSPECIFIED 03/21/2017 NEW, BEENA Alejo PULP TESTER-C Ot E78.5 HYPERLIPIDEMIA, UNSPECIFIED 03/21/2017 NEW, BEENA Alejo PULP TESTER-C Ot E87.5 HYPERKALEMIA 03/21/2017 NEW, BEENA Alejo PULP TESTER-C Ot 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, W S 03/21/2017 NEW, BEENA MahoneySheree PULP TESTER-C Ot I25.10 ATHSCL HEART DISEASE OF [place] CORONARY 03/21/2017 NEW, BEENA MahoneySheree PULP TESTER-C Ot M48.02 SPINAL STENOSIS, CERVICAL REGION 03/21/2017 NEW, BEENA MahoneySheree PULP TESTER-C Ot 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 03/21/2017 NEW, BEENA MahoneySheree PULP TESTER-C Ot R80.9 PROTEINURIA, UNSPECIFIED 03/21/2017 NEW, BEENA MahoneySheree PULP TESTER-C Ot D63.1 ANEMIA IN CHRONIC KIDNEY DISEASE 03/21/2017 NEW, BEENA MahoneySheree PULP TESTER-C Ot D72.819 DECREASED WHITE BLOOD CELL COUNT, UNSPEC 03/21/2017 NEW, BEENA MahoneySheree PULP TESTER-C Ot E03.9 HYPOTHYROIDISM, UNSPECIFIED 03/21/2017 NEW, BEENA Alejo PULP TESTER-C Ot 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 ASSISTANT 03/21/2017 NEW, BEENA MahoneySheree PULP TESTER-C Ot E46 UNSPECIFIED PROTEIN-CALORIE MALNUTRITION 03/21/2017 NEW, BEENA MahoneySheree PULP TESTER-C Ot E55.9 VITAMIN D DEFICIENCY, UNSPECIFIED 03/21/2017 NEW, BEENA MahoneySheree PULP TESTER-C Ot E78.5 HYPERLIPIDEMIA, UNSPECIFIED 03/21/2017 NEW, BEENA MahoneySheree PULP TESTER-C Ot E87.5 HYPERKALEMIA 03/21/2017 NEW, BEENA MahoneySheree PULP TESTER-C Ot 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, W S 03/21/2017 NEW, BEENA MahoneySheree PULP TESTER-C Ot I25.10 ATHSCL HEART DISEASE OF [place] CORONARY 03/21/2017 NEW, BEENA MahoneySheree PULP TESTER-C Ot M48.02 SPINAL STENOSIS, CERVICAL REGION 03/21/2017 NEW, BEENA MahoneySheree PULP TESTER-C Ot N18.4 CHRONIC KIDNEY DISEASE, STAGE 4 (SEVERE) 03/21/2017 NEW, BEENA MahoneySheree PULP TESTER-C Ot 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 03/21/2017 NEW, BEENA Alejo PULP TESTER-C Ot R80.9 PROTEINURIA, UNSPECIFIED 03/21/2017 NEW, BEENA Alejo PULP TESTER-C Ot D63.1 ANEMIA IN CHRONIC KIDNEY DISEASE 03/21/2017 NEW, BEENA Alejo PULP TESTER-C Ot D72.819 DECREASED WHITE BLOOD CELL COUNT, UNSPEC 03/21/2017 NEW, BEENA GSheree PULP TESTER-C Ot E03.9 HYPOTHYROIDISM, UNSPECIFIED 03/21/2017 NEW, BEENA GSheree PULP TESTER-C Ot E11.29 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 03/21/2017 NEW, BEENA MaruSheree PULP TESTER-C Ot E46 UNSPECIFIED PROTEIN-CALORIE MALNUTRITION 03/21/2017 NEW, BEENA MahoneySheree PULP TESTER-C Ot E55.9 VITAMIN D DEFICIENCY, UNSPECIFIED 03/21/2017 NEW, BEENA GSheree PULP TESTER-C Ot E78.5 HYPERLIPIDEMIA, UNSPECIFIED 03/21/2017 NEW, BEENA MahoneySheree PULP TESTER-C Ot E87.5 HYPERKALEMIA 03/21/2017 NEW, BEENA MahoneySheree PULP TESTER-C Ot 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, W S 03/21/2017 NEW, BEENA MahoneySheree PULP TESTER-C Ot I25.10 ATHSCL HEART DISEASE OF [place] CORONARY 03/21/2017 NEW, BEENA MahoneySheree PULP TESTER-C Ot M48.02 SPINAL STENOSIS, CERVICAL REGION 03/21/2017 NEW, BEENA MaruSheree PULP TESTER-C Ot N18.4 CHRONIC KIDNEY DISEASE, STAGE 4 (SEVERE) 03/21/2017 NEW, BEENA GSheree PULP TESTER-C Ot 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 03/21/2017 NEW, BEENA MaruSheree PULP TESTER-C Ot R80.9 PROTEINURIA, UNSPECIFIED 03/31/2017 NEW, BEENA MaruSheree PULP TESTER-C Ot 244.9 HYPOTHYROIDISM NOS 03/31/2017 NEW, BEENA MaruSheree PULP TESTER-C Ot 250.40 DIAB W RENAL MANIFEST, TYPE II OR UNSPEC 03/31/2017 NEW, BEENA MaruSheree PULP TESTER-C Ot 263.9 PROTEIN-ANA MALNUTR NOS 03/31/2017 NEW, BEENA MaruSheree PULP TESTER-C Ot 268.9 VITAMIN D DEFICIENCY NOS 03/31/2017 NEW, BEENA Alejo PULP TESTER-C Ot 272.4 HYPERLIPIDEMIA NEC/NOS 03/31/2017 NEW, BEENA lAejo PULP TESTER-C Ot 276.7 HYPERPOTASSEMIA 03/31/2017 NEW, BEENA Alejo PULP TESTER-C Ot 285.21 ANEMIA IN CHRONIC KIDNEY DISEASE 03/31/2017 NEW, BEENA Alejo PULP TESTER-C Ot 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, BENIGN, 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 03/31/2017 NEW, BEENA Alejo PULP TESTER-C Ot 414.00 CORON ATHEROSCLER NOS TYPE VESSEL, NATIV 03/31/2017 NEW, BEENA Alejo PULP TESTER-C Ot 585.3 CHRONIC KIDNEY DISEASE, STAGE III (MODER 03/31/2017 NEW, BEENA Alejo PULP TESTER-C Ot 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 03/31/2017 NEW, BEENA Alejo PULP TESTER-C Ot 723.0 CERVICAL SPINAL STENOSIS 03/31/2017 NEW, BEENA Alejo PULP TESTER-C Ot 791.0 PROTEINURIA 03/31/2017 NEW, BEENA Alejo PULP TESTER-C Ot 796.4 ABN CLINICAL FINDING NEC 03/31/2017 NEW, BEENA Alejo PULP TESTER-C Ot D63.1 ANEMIA IN CHRONIC KIDNEY DISEASE 03/31/2017 NEW, BEENA Alejo PULP TESTER-C Ot D72.819 DECREASED WHITE BLOOD CELL COUNT, UNSPEC 03/31/2017 NEW, BEENA Alejo PULP TESTER-C Ot E03.9 HYPOTHYROIDISM, UNSPECIFIED 03/31/2017 NEW, BEENA Alejo PULP TESTER-C Ot E11.29 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 03/31/2017 NEW, BEENA Alejo PULP TESTER-C Ot E46 UNSPECIFIED PROTEIN-CALORIE MALNUTRITION 03/31/2017 NEW, BEENA Alejo PULP TESTER-C Ot E55.9 VITAMIN D DEFICIENCY, UNSPECIFIED 03/31/2017 NEW, BEENA Alejo PULP TESTER-C Ot E78.5 HYPERLIPIDEMIA, UNSPECIFIED 03/31/2017 NEW, BEENA Alejo PULP TESTER-C Ot E87.5 HYPERKALEMIA 03/31/2017 NEW, BEENA Alejo PULP TESTER-C Ot 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, W S 03/31/2017 NEW, BEENA Alejo PULP TESTER-C Ot I25.10 ATHSCL HEART DISEASE OF [place] CORONARY 03/31/2017 NEW, BEENA Alejo PULP TESTER-C Ot M48.02 SPINAL STENOSIS, CERVICAL REGION 03/31/2017 NEW, BEENA MaruSheree PULP TESTER-C Ot N18.4 CHRONIC KIDNEY DISEASE, STAGE 4 (SEVERE) 03/31/2017 NEW, BEENA MaruSheree PULP TESTER-C Ot R80.9 PROTEINURIA, UNSPECIFIED 03/31/2017 NEW, BEENA MaruSheree PULP TESTER-C Ot D63.1 ANEMIA IN CHRONIC KIDNEY DISEASE 03/31/2017 NEW, BEENA MaruSheree PULP TESTER-C Ot D72.819 DECREASED WHITE BLOOD CELL COUNT, UNSPEC 03/31/2017 NEW, BEENA MaruSheree PULP TESTER-C Ot E03.9 HYPOTHYROIDISM, UNSPECIFIED 03/31/2017 NEW, BEENA Alejo PULP TESTER-C Ot 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 ASSISTANT 03/31/2017 NEW, BEENA Alejo PULP TESTER-C Ot E46 UNSPECIFIED PROTEIN-CALORIE MALNUTRITION 03/31/2017 NEW, BEENA MaruSheree PULP TESTER-C Ot E55.9 VITAMIN D DEFICIENCY, UNSPECIFIED 03/31/2017 NEW, BEENA Alejo PULP TESTER-C Ot E78.5 HYPERLIPIDEMIA, UNSPECIFIED 03/31/2017 NEW, BEENA MaruShreee PULP TESTER-C Ot E87.5 HYPERKALEMIA 03/31/2017 NEW, BEENA MaruSheree PULP TESTER-C Ot 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, W S 03/31/2017 NEW, BEENA MaruSheree PULP TESTER-C Ot I25.10 ATHSCL HEART DISEASE OF [place] CORONARY 03/31/2017 NEW, BEENA Alejo PULP TESTER-C Ot M48.02 SPINAL STENOSIS, CERVICAL REGION 03/31/2017 NEW, BEENA Alejo PULP TESTER-C Ot 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 03/31/2017 NEW, BEENA Alejo PULP TESTER-C Ot R80.9 PROTEINURIA, UNSPECIFIED 03/31/2017 NEW, BEENA MaruSheree PULP TESTER-C Ot D63.1 ANEMIA IN CHRONIC KIDNEY DISEASE 03/31/2017 NEW, BEENA GSheree PULP TESTER-C Ot D72.819 DECREASED WHITE BLOOD CELL COUNT, UNSPEC 03/31/2017 NEW, BEENA Alejo PULP TESTER-C Ot E03.9 HYPOTHYROIDISM, UNSPECIFIED 03/31/2017 NEW, BEENA Alejo PULP TESTER-C Ot 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 ASSISTANT 03/31/2017 NEW, BEENA Alejo PULP TESTER-C Ot E46 UNSPECIFIED PROTEIN-CALORIE MALNUTRITION 03/31/2017 NEW, BEENA Alejo PULP TESTER-C Ot E55.9 VITAMIN D DEFICIENCY, UNSPECIFIED 03/31/2017 NEW, BEENA Alejo PULP TESTER-C Ot E78.5 HYPERLIPIDEMIA, UNSPECIFIED 03/31/2017 NEW, BEENA Alejo PULP TESTER-C Ot E87.5 HYPERKALEMIA 03/31/2017 NEW, BEENA Alejo PULP TESTER-C Ot 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, W S 03/31/2017 NEW, BEENA Alejo PULP TESTER-C Ot I25.10 ATHSCL HEART DISEASE OF [place] CORONARY 03/31/2017 NEW, BEENA Alejo PULP TESTER-C Ot M48.02 SPINAL STENOSIS, CERVICAL REGION 03/31/2017 NEW, BEENA Alejo PULP TESTER-C Ot N18.4 CHRONIC KIDNEY DISEASE, STAGE 4 (SEVERE) 03/31/2017 NEW, BEENA Alejo PULP TESTER-C Ot 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 03/31/2017 NEW, BEENA Alejo PULP TESTER-C Ot R80.9 PROTEINURIA, UNSPECIFIED 03/31/2017 NEW, BEENA Alejo PULP TESTER-C Ot D63.1 ANEMIA IN CHRONIC KIDNEY DISEASE 03/31/2017 NEW, BEENA Alejo PULP TESTER-C Ot D72.819 DECREASED WHITE BLOOD CELL COUNT, UNSPEC 03/31/2017 NEW, BEENA Alejo PULP TESTER-C Ot E03.9 HYPOTHYROIDISM, UNSPECIFIED 03/31/2017 NEW, BEENA Alejo PULP TESTER-C Ot E11.29 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 03/31/2017 NEW, BEENA Alejo PULP TESTER-C Ot E46 UNSPECIFIED PROTEIN-CALORIE MALNUTRITION 03/31/2017 NEW, BEENA Alejo PULP TESTER-C Ot E55.9 VITAMIN D DEFICIENCY, UNSPECIFIED 03/31/2017 NEW, BEENA Alejo PULP TESTER-C Ot E78.5 HYPERLIPIDEMIA, UNSPECIFIED 03/31/2017 NEW, BEENA Alejo PULP TESTER-C Ot E87.5 HYPERKALEMIA 03/31/2017 NEW, BEENA Alejo PULP TESTER-C Ot 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, W S 03/31/2017 NEW, BEENA Alejo PULP TESTER-C Ot I25.10 ATHSCL HEART DISEASE OF [place] CORONARY 03/31/2017 NEW, BEENA Alejo PULP TESTER-C Ot M48.02 SPINAL STENOSIS, CERVICAL REGION 03/31/2017 NEW, BEENA Alejo PULP TESTER-C Ot N18.4 CHRONIC KIDNEY DISEASE, STAGE 4 (SEVERE) 03/31/2017 NEW, BEENA Alejo PULP TESTER-C Ot 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 03/31/2017 NEW, BEENA Alejo PULP TESTER-C Ot R80.9 PROTEINURIA, UNSPECIFIED 03/31/2017 NEW, BEENA Alejo PULP TESTER-C Ot E11.29 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 03/31/2017 NEW, BEENA Alejo PULP TESTER-C Ot N18.4 CHRONIC KIDNEY DISEASE, STAGE 4 (SEVERE) 04/01/2017 NEW, BEENA MahoneySheree PULP TESTER-C Ot D63.1 ANEMIA IN CHRONIC KIDNEY DISEASE 04/01/2017 NEW, BEENA Alejo PULP TESTER-C Ot D72.819 DECREASED WHITE BLOOD CELL COUNT, UNSPEC 04/01/2017 NEW, BEENA GSheree PULP TESTER-C Ot E03.9 HYPOTHYROIDISM, UNSPECIFIED 04/01/2017 NEW, BEENA MahoneySheree PULP TESTER-C Ot 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 ASSISTANT 04/01/2017 NEW, BEENA MahoneySheree PULP TESTER-C Ot E46 UNSPECIFIED PROTEIN-CALORIE MALNUTRITION 04/01/2017 NEW, BEENA Alejo PULP TESTER-C Ot E55.9 VITAMIN D DEFICIENCY, UNSPECIFIED 04/01/2017 NEW, BEENA Alejo PULP TESTER-C Ot E78.5 HYPERLIPIDEMIA, UNSPECIFIED 04/01/2017 NEW, BEENA Alejo PULP TESTER-C Ot E87.5 HYPERKALEMIA 04/01/2017 NEW, BEENA MahoneySheree PULP TESTER-C Ot 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, W S 04/01/2017 NEW, BEENA MahoneySheree PULP TESTER-C Ot I25.10 ATHSCL HEART DISEASE OF [place] CORONARY 04/01/2017 NEW, BEENA MahoneySheree PULP TESTER-C Ot M48.02 SPINAL STENOSIS, CERVICAL REGION 04/01/2017 NEW, BEENA Alejo PULP TESTER-C Ot N18.4 CHRONIC KIDNEY DISEASE, STAGE 4 (SEVERE) 04/01/2017 NEW, BEENA Alejo PULP TESTER-C Ot 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 04/01/2017 NEW, BEENA Alejo PULP TESTER-C Ot R80.9 PROTEINURIA, UNSPECIFIED 04/23/2017 NEW, BEENA Aeljo PULP TESTER-C Ot D63.1 ANEMIA IN CHRONIC KIDNEY DISEASE 04/23/2017 NEW, BEENA Alejo PULP TESTER-C Ot D72.819 DECREASED WHITE BLOOD CELL COUNT, UNSPEC 04/23/2017 NEW, BEENA Alejo PULP TESTER-C Ot E03.9 HYPOTHYROIDISM, UNSPECIFIED 04/23/2017 NEW, BEENA Alejo PULP TESTER-C Ot 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 ASSISTANT 04/23/2017 NEW, BEENA Alejo PULP TESTER-C Ot E46 UNSPECIFIED PROTEIN-CALORIE MALNUTRITION 04/23/2017 NEW, BEENA Alejo PULP TESTER-C Ot E55.9 VITAMIN D DEFICIENCY, UNSPECIFIED 04/23/2017 NEW, BEENA Alejo PULP TESTER-C Ot E78.5 HYPERLIPIDEMIA, UNSPECIFIED 04/23/2017 NEW, BEENA Alejo PULP TESTER-C Ot E87.5 HYPERKALEMIA 04/23/2017 NEW, BEENA Alejo PULP TESTER-C Ot 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 PULP TESTER-C Ot R80.9 PROTEINURIA, UNSPECIFIED 01/06/2018 NEW, BEENA Alejo PULP TESTER-C Ot D63.1 ANEMIA IN CHRONIC KIDNEY DISEASE 01/06/2018 NEW, BEENA Alejo PULP TESTER-C Ot D72.819 DECREASED WHITE BLOOD CELL COUNT, UNSPEC 01/06/2018 NEW, BEENA Alejo PULP TESTER-C Ot E03.9 HYPOTHYROIDISM, UNSPECIFIED 01/06/2018 NEW, BEENA Alejo PULP TESTER-C Ot E11.29 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 01/06/2018 NEW, BEENA Melo PULP TESTER-C Ot E46 UNSPECIFIED PROTEIN-CALORIE MALNUTRITION 01/06/2018 NEW, BEENA MahoneySheree PULP TESTER-C Ot E55.9 VITAMIN D DEFICIENCY, UNSPECIFIED 01/06/2018 JAGJIT BEENA MahoneySheree PULP TESTER-C Ot E78.5 HYPERLIPIDEMIA, UNSPECIFIED 01/06/2018 JAGJIT BEENA MahoneySheree PULP TESTER-C Ot E87.5 HYPERKALEMIA 01/06/2018 CHAY DANIELSONDayan MahoneySheree PULP TESTER-C Ot 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, W S 01/06/2018 BEENA DANIELSON MaruSheree PULP TESTER-C Ot I25.10 ATHSCL HEART DISEASE OF [place] CORONARY 01/06/2018 BEENA DANIELSON MaruSheree PULP TESTER-C Ot M48.02 SPINAL STENOSIS, CERVICAL REGION 01/06/2018 NEWBEENA MaruSheree PULP TESTER-C Ot N18.4 CHRONIC KIDNEY DISEASE, STAGE 4 (SEVERE) 01/06/2018 BEENA DANIELSON MaruSheree PULP TESTER-C Ot 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 01/06/2018 BEENA DANIELSON MaruSheree PULP TESTER-C Ot R80.9 PROTEINURIA, UNSPECIFIED 01/06/2018 BEENA DANIELSON MaruSheree PULP TESTER-C Ot R82.90 UNSPECIFIED ABNORMAL FINDINGS IN URINE 03/09/2018 Mica Condon W 250.00 DIABETES MELLITUS WITHOUT MENTION OF COMPLICATION, TYPE II OR UNSPECIFIED TYPE, NOT STATED UNCONTROLLED 03/09/2018 Mica Condon W 272.4 OTHER AND UNSPECIFIED HYPERLIPIDEMIA 03/09/2018 Mica Condon W 410.71 03/09/2018 Mica Condon W 414.01 CORONARY ATHEROSCLEROSIS OF [place] CORONARY ARTERY 03/09/2018 Mica Condon W 729.89 OTHER MUSCULOSKELETAL SYMPTOMS REFERABLE TO LIMBS 03/09/2018 Mica Condon W 780.97 ALTERED MENTAL STATUS 03/09/2018 Mica Condon W E11.9 TYPE 2 DIABETES MELLITUS WITHOUT COMPLICATIONS 03/09/2018 Mica Condon W E78.5 HYPERLIPIDEMIA, UNSPECIFIED 03/09/2018 Mica Condon W I21.4 NON-ST ELEVATION (NSTEMI) MYOCARDIAL INFARCTION 03/09/2018 Mica Condon W I25.10 ATHSCL HEART DISEASE OF [place] CORONARY ARTERY W/O ANG PCTRS 03/09/2018 Mica Condon W R29.898 OTH SYMPTOMS AND SIGNS INVOLVING THE MUSCULOSKELETAL SYSTEM 03/09/2018 Mica Condon R41.82 ALTERED MENTAL STATUS, UNSPECIFIED Procedures There [...] culture - 03/31/17 14:20 Bacterial urine culture [id number] NRG COLONY COUNT 10,000/ML - 100,000/ML NRG [...] measurement by glucometer (mass/volume) 182 mg/dL 70-110 Methicillin resistant Staphylococcus aureus (MRSA) screening culture - 11:45 Methicillin resistant Staphylococcus aureus (MRSA) screening culture NEG NRG Complete blood count (CBC) with automated white blood cell (WBC) differential - 03/12/18 12:00 Blood leukocytes automated count (number/volume) 5.9 10*3/uL 4.3-11.0 Blood erythrocytes automated count (number/volume) 4.15 10*6/uL 4.35-5.85 Venous blood hemoglobin measurement (mass/volume) 12.1 g/dL 11.5-16.0 Blood hematocrit (volume fraction) 37 % 35-52 Automated erythrocyte mean corpuscular volume 90 [foz_us] 80-99 Automated erythrocyte mean corpuscular hemoglobin (mass per erythrocyte) 29 pg 25-34 Automated erythrocyte mean corpuscular hemoglobin concentration measurement ( mass/volume) 33 g/dL 32-36 Automated erythrocyte distribution width ratio 14.0 % 10.0-14.5 Automated blood platelet count (count/volume) 135 10*3/uL 130-400 Automated blood platelet mean volume measurement 11.6 [foz_us] 7.4-10.4 Automated blood neutrophils/100 leukocytes 73 % 42-75 Automated blood lymphocytes/100 leukocytes 16 % 12-44 Blood monocytes/100 leukocytes 10 % 0-12 Automated blood eosinophils/100 leukocytes 1 % 0-10 Automated blood basophils/100 leukocytes 0 % 0-10 Blood neutrophils automated count (number/volume) 4.3 10*3 1.8-7.8 Blood lymphocytes automated count (number/volume) 1.0 10*3 1.0-4.0 Blood monocytes automated count (number/volume) 0.6 10*3 0.0-1.0 Automated eosinophil count 0.0 10*3/uL 0.0-0.3 Automated blood basophil count (count/volume) 0.0 10*3/uL 0.0-0.1 Comprehensive metabolic panel - 03/12/18 12:00 Serum or plasma sodium measurement (moles/volume) 135 mmol/L 135-145 Serum or plasma potassium measurement (moles/volume) 4.9 mmol/L 3.6-5.0 Serum or plasma chloride measurement (moles/volume) 105 mmol/L 98-107 Carbon dioxide 21 mmol/L 21-32 Serum or plasma anion gap determination (moles/volume) 9 mmol/L 5-14 Serum or plasma urea nitrogen measurement (mass/volume) 23 mg/dL 7-18 Serum or plasma creatinine measurement (mass/volume) 1.30 mg/dL 0.60-1.30 Serum or plasma urea nitrogen/creatinine mass ratio 18 NRG Serum or plasma creatinine measurement with calculation of estimated glomerular filtration rate 40 NRG Serum or plasma glucose measurement (mass/volume) 181 mg/dL 70-105 Serum or plasma calcium measurement (mass/volume) 8.7 mg/dL 8.5-10.1 Serum or plasma total bilirubin measurement (mass/volume) 0.4 mg/dL 0.1-1.0 Serum or plasma alkaline phosphatase measurement (enzymatic activity/volume) 74 U/L 40-136 Serum or plasma aspartate aminotransferase measurement (enzymatic activity/ volume) 24 U/L 5-34 Serum or plasma alanine aminotransferase measurement (enzymatic activity/volume ) 14 U/L 0-55 Serum or plasma protein measurement (mass/volume) 5.6 g/dL 6.4-8.2 Serum or plasma albumin measurement (mass/volume) 3.3 g/dL 3.2-4.5 CALCIUM CORRECTED 9.3 mg/dL 8.5-10.1 Serum or plasma troponin i.cardiac measurement (mass/volume) - 03/12/18 12:00 Serum or plasma troponin i.cardiac measurement (mass/volume) 0.175 ng/mL <0.028 Arterial blood gas measurement - 03/12/18 12:25 Blood pCO2 49 mm[Hg] 35-45 Blood pO2 38 mm[Hg] 79-93 Arterial blood bicarbonate measurement (moles/volume) 25 mmol/L 23-27 Arterial blood base excess by calculation -0.5 mmol/L - 2.5-2.5 Arterial blood oxygen saturation measurement 63 % 94-100 * Inhaled oxygen flow rate 3 NRG Arterial blood pH measurement with patient temperature correction 7.32 7.37-7.43 Arterial blood carbon dioxide, total measurement (moles/volume) 26.5 mmol/L 21.0-31.0 Body site L RAD NRG Assessment of wrist artery patency prior to arterial puncture YES- POS NRG Setting of ventilation mode NO NRG Measurement of body temperature 97.2 NRG Capillary blood glucose measurement by glucometer (mass/volume) - 03/12/18 16: 29 Capillary blood glucose measurement by glucometer (mass/volume) 183 mg/dL 70-110 Capillary blood glucose measurement by glucometer (mass/volume) - 03/12/18 21: 33 Capillary blood glucose measurement by glucometer (mass/volume) 290 mg/dL 70-110 Complete blood count (CBC) with automated white blood cell (WBC) differential - 03/13/18 03:35 Blood leukocytes automated count (number/volume) 5.0 10*3/uL 4.3-11.0 Blood erythrocytes automated count (number/volume) 3.78 10*6/uL 4.35-5.85 Venous blood hemoglobin measurement (mass/volume) 11.2 g/dL 11.5-16.0 Blood hematocrit (volume fraction) 34 % 35-52 Automated erythrocyte mean corpuscular volume 89 [foz_us] 80-99 Automated erythrocyte mean corpuscular hemoglobin (mass per erythrocyte) 30 pg 25-34 Automated erythrocyte mean corpuscular hemoglobin concentration measurement ( mass/volume) 33 g/dL 32-36 Automated erythrocyte distribution width ratio 14.2 % 10.0-14.5 Automated blood platelet count (count/volume) 132 10*3/uL 130-400 Automated blood platelet mean volume measurement 11.8 [foz_us] 7.4-10.4 Automated blood neutrophils/100 leukocytes 69 % 42-75 Automated blood lymphocytes/100 leukocytes 22 % 12-44 Blood monocytes/100 leukocytes 9 % 0-12 Automated blood eosinophils/100 leukocytes 1 % 0-10 Automated blood basophils/100 leukocytes 0 % 0-10 Blood neutrophils automated count (number/volume) 3.4 10*3 1.8-7.8 Blood lymphocytes automated count (number/volume) 1.1 10*3 1.0-4.0 Blood monocytes automated count (number/volume) 0.4 10*3 0.0-1.0 Automated eosinophil count 0.0 10*3/uL 0.0-0.3 Automated blood basophil count (count/volume) 0.0 10*3/uL 0.0-0.1 Comprehensive metabolic panel - 03/13/18 03:35 Serum or plasma sodium measurement (moles/volume) 138 mmol/L 135-145 Serum or plasma potassium measurement (moles/volume) 4.4 mmol/L 3.6-5.0 Serum or plasma chloride measurement (moles/volume) 108 mmol/L 98-107 Carbon dioxide 19 mmol/L 21-32 Serum or plasma anion gap determination (moles/volume) 11 mmol/L 5-14 Serum or plasma urea nitrogen measurement (mass/volume) 25 mg/dL 7-18 Serum or plasma creatinine measurement (mass/volume) 0.89 mg/dL 0.60-1.30 Serum or plasma urea nitrogen/creatinine mass ratio 28 NRG Serum or plasma creatinine measurement with calculation of estimated glomerular filtration rate > NRG Serum or plasma glucose measurement (mass/volume) 108 mg/dL 70-105 Serum or plasma calcium measurement (mass/volume) 8.8 mg/dL 8.5-10.1 Serum or plasma total bilirubin measurement (mass/volume) 0.5 mg/dL 0.1-1.0 Serum or plasma alkaline phosphatase measurement (enzymatic activity/volume) 63 U/L 40-136 Serum or plasma aspartate aminotransferase measurement (enzymatic activity/ volume) 22 U/L 5-34 Serum or plasma alanine aminotransferase measurement (enzymatic activity/volume ) 11 U/L 0-55 Serum or plasma protein measurement (mass/volume) 5.4 g/dL 6.4-8.2 Serum or plasma albumin measurement (mass/volume) 3.3 g/dL 3.2-4.5 CALCIUM CORRECTED 9.4 mg/dL 8.5-10.1 Capillary blood glucose measurement by glucometer (mass/volume) - 03/13/18 10: 57 Capillary blood glucose measurement by glucometer (mass/volume) 123 mg/dL 70-110 Capillary blood glucose measurement by glucometer (mass/volume) - 03/13/18 17: 24 Capillary blood glucose measurement by glucometer (mass/volume) 138 mg/dL 70-110 Capillary blood glucose measurement by glucometer (mass/volume) - 03/13/18 20: 48 Capillary blood glucose measurement by glucometer (mass/volume) 178 mg/dL 70-110 Capillary blood glucose measurement by glucometer (mass/volume) - 03/14/18 04: 41 Capillary blood glucose measurement by glucometer (mass/volume) 108 mg/dL 70-110 Capillary blood glucose measurement by glucometer (mass/volume) - 03/14/18 11: 50 Capillary blood glucose measurement by glucometer (mass/volume) 124 mg/dL 70-110 Encounters ACCT No. Visit Date/Time Discharge Status Pt. Type Provider Facility Loc./Unit Complaint [id number] 03/12/2018 11:30:00 03/13/2018 09:33:00 DIS Inpatient ERVIN TRAN DO [facility] ICU SYNCOPE [id number] 12/16/2017 14:37:00 12/16/2017 23:59:59 CLS Outpatient BEENA DANIELSON [facility] [employer]-C [facility] LAB N18.4,E87.5 [id number] 03/31/2017 14:03:00 03/31/2017 23:59:59 CLS Outpatient BEENA DANIELSON [facility] TE[employer]-C [facility] LAB N18.4,E87.5 [id number] 08/16/2016 09:49:00 08/16/2016 23:59:59 CLS Outpatient BEENA DANIELSON [facility] [employer]-C [facility] LAB N18.4 [id number] 06/26/2016 00:13:00 06/26/2016 23:59:59 CLS Preadmit BEENA DANIELSON [facility] TESTER-C [facility] IRON DEFICIENCY ANEMIA [id number] 04/05/2016 11:04:00 06/25/2016 00:01:00 DIS Outpatient BEENA DANIELSON [employer] TESTER-C [facility] IRON DEFICIENCY ANEMIA [id number] 12/25/2015 00:09:00 12/25/2015 23:59:59 CLS Preadmit BEENA DANIELSON [employer] TE[employer]-C [facility] LAB CHRONIC KIDNEY DISEASE [id number] 09/26/2015 10:00:00 12/24/2015 00:01:00 DIS Outpatient BEENA DANIELSON PULP TESTER-C [facility] LAB CHRONIC KIDNEY DISEASE [id number] 09/25/2015 14:31:00 09/25/2015 23:59:59 CLS Outpatient BEENA DANIELSON PULP TESTER-C [facility] LAB CHRONIC KIDNEY DISEASE, HYPERKALEMIA [id number] 05/28/2015 17:36:00 05/28/2015 19:48:00 DIS Emergency DONNIE CARLTON APRN [facility] ER SHAKINESS [id number] 03/07/2015 12:52:00 03/07/2015 23:59:59 CLS Outpatient BEENA DANIELSON PULP TESTER-C [facility] LAB CHRONIC KIDNEY DISEASE [id number] 10/11/2014 09:08:00 10/11/2014 23:59:59 CLS Outpatient BEENA DANIELSON PULP TESTER-C [facility] LAB CKD STAGE III, HYPERTENSIVE HEART,DM,ANEMIA IN CKD [id number] 10/12/2013 13:28:00 10/12/2013 15:54:00 DIS Emergency YULIANA BEENA [facility] ER FEET/LEGS SWELLING [id number] 03/11/2018 17:00:00 ACT Inpatient TRANKANDI VEGA DOI [facility] IRF CVA [id number] 10/11/2014 09:04:00 Document Registration [id number] 01/30/2011 14:55:00 Document Registration [id number] 10/29/2010 05:49:00 Document Registration [id number] 10/26/2010 13:14:00 Document Registration [id number] 08/15/2010 05:38:00 Document Registration [id number] 08/10/2010 08:58:00 Document Registration [id number] 03/15/2016 13:05:00 Document Registration [id number] 2018 16:40:00 2018 23:59:59 C[id number] 10/11/2014 09:12:04 ACT Document Registration [id number] 03/09/2018 00:42:00 03/09/2018 04:25:00 DIS Outpatient Mica Condon [facility] [place] [id number] 03/09/2018 01:43:56 Document Registration
== END 2018-03-13 09:33 ==
LOC: ICU 11:30 → UNDOADMIN 11:30 → ICU 11:43 → UNDODISIN 03-13 09:33 → EDSTATUS 03-16 14:35
PROVIDERS: ADMIT Internal Medicine; ATTEND Internal Medicine
DX: R55 Syncope and collapse (principal); I69.320 Aphasia following cerebral infarction; I69.391 Dysphagia following cerebral infarction; I69.351 Hemiplegia and hemiparesis following cerebral infarction affecting right dominant side; E86.1 Hypovolemia; I25.10 Atherosclerotic heart disease of native coronary artery without angina pectoris; N18.9 Chronic kidney disease, unspecified; I25.5 Ischemic cardiomyopathy; E78.5 Hyperlipidemia, unspecified; Z95.0 Presence of cardiac pacemaker; I50.22 Chronic systolic (congestive) heart failure; I11.0 Hypertensive heart disease with heart failure; E03.9 Hypothyroidism, unspecified; R13.12 Dysphagia, oropharyngeal phase; E78.00 Pure hypercholesterolemia, unspecified; E11.9 Type 2 diabetes mellitus without complications; K59.09 Other constipation; Z91.19 Patient's noncompliance with other medical treatment and regimen; I25.2 Old myocardial infarction
CPT/HCPCS: 36415; 70450; 71045; 80053; 82805; 82962; 84484; 85025; 87081; 93005; 99211; G0378

== ENCOUNTER → 2018-04-29 | Outpatient (CLI) | payer MEDICARE ==
[~2018-04-29] VITALS: Ht 152.4 cm; Wt 62.6 kg
[~2018-04-29] MED LIST changes: +ATOR40TA PO; +CATHETER FLUSH 10 ML SYR IV PRN; +CITA20TA9 PO; +FAMO20TA5 PO; +LEVO25TA5 PO; +LISI10TA2 PO; +METF-397 PO; +METO-387 PO; +REGADENOSON 0.4 MG/5 ML SYR (LEXISCAN) IV ONE; +TRAM50TA2 PO
[2018-04-29 09:22] VITALS: BP 172/89
[2018-04-29 09:29] VITALS: BP 169/81
--- NOTE | 2018-04-29 15:51 | STRESS TEST ---
DATE OF SERVICE: 04/29/2018 LEXISCAN MYOVIEW STRESS TEST REPORT REFERRING PHYSICIAN: Dr. Pepito Gibson. Baseline heart rate is 68, baseline blood pressure 172/89. Baseline EKG is sinus rhythm with no ischemic changes. In summary, the patient was injected with 10.32 mCi of technetium-99 Myoview and the resting images were obtained. Then, the patient received 0.4 mg of Lexiscan followed by 29.2 mCi of technetium-99 Myoview. Throughout the test, there were no EKG changes. The resting and stress images were reviewed and compared in the short axis, horizontal long axis, and vertical long axis views. Review of the images showed breast attenuation affecting the quality of the images. There is decreased uptake involving the basal to mid anterolateral and inferolateral wall with no significant reversibility. SSS is 14. SDS 4. TID value 0.99. On the gated images, the left ventricle is dilated with diffuse left ventricular hypokinesia, calculated ejection fraction 31%. CONCLUSION: 1. The patient tolerated Lexiscan well. 2. Breast attenuation affecting the quality of the images with fixed defect involving the basal to mid anterolateral and inferolateral wall, probably due to the breast attenuation. 3. Prominent left ventricle with diffuse left ventricular hypokinesia, calculated ejection fraction 31%. Repeat in a different modality, gated images, calculations showed ejection fraction 44% Job ID: [id number] DocumentID: [id number] Dictated Date: 04/29/2018 15:22:26 Sausage Cutter Date: 04/29/2018 15:51:15 Dictated By: JAC MABRY MD
== END ==
LOC: CARD 07:36
PROVIDERS: ATTEND Internal Medicine Cardiovascular Disease
DX: I25.10 Atherosclerotic heart disease of native coronary artery without angina pectoris (principal); I50.9 Heart failure, unspecified; E78.2 Mixed hyperlipidemia; E03.9 Hypothyroidism, unspecified; R55 Syncope and collapse
CPT/HCPCS: 78452; 93017

== ENCOUNTER 2018-07-21 15:05 | Inpatient (IN) | payer MEDICARE ==
[~2018-07-21] VITALS: Ht 152.4 cm; Wt 73.0 kg
[~2018-07-21 15:05] MED LIST changes: -CATHETER FLUSH 10 ML SYR IV PRN; -EZET10TA27 PO; +EZET10TA49 PO; -REGADENOSON 0.4 MG/5 ML SYR (LEXISCAN) IV ONE
[2018-07-21] MEDS ORDERED: NS IV 1000 ML 1,000 ML ONE (15:08)
--- OUTSIDE RECORDS SUMMARY | 2018-07-21 15:14 | XMS REPORT | Continuity of Care Document ---
Author Organization Unknown Address Unknown Allergies Active Description Code Type Severity Reaction [...] UNSPECIFIED 10/29/2010 Ot 414.01 CORONARY ATHEROSCLEROSIS OF [place] CORON 10/29/2010 Ot 715.37 LOC OSTEOARTH NOS-ANKLE [...] 10/11/2014 Ot V58.63 10/11/2014 Ot V72.63 11/04/2014 NEW, BEENA MaruSheree VIDEO TECHNICIAN-C Ot 244.9 11/04/2014 NEW, BEENA MaruSheree VIDEO TECHNICIAN-C Ot 250.40 11/04/2014 NEW, BEENA Alejo VIDEO TECHNICIAN-C Ot 263.9 11/04/2014 NEW, BEENA Alejo VIDEO TECHNICIAN-C Ot 268.9 11/04/2014 NEW, BEENA Alejo VIDEO TECHNICIAN-C Ot 272.4 11/04/2014 NEW, BEENA Maru. VIDEO TECHNICIAN-C Ot 276.7 11/04/2014 NEW, BEENA Maru. VIDEO TECHNICIAN-C Ot 285.21 11/04/2014 NEW, BEENA Alejo VIDEO TECHNICIAN-C Ot 404.10 11/04/2014 NEW, BEENA Alejo VIDEO TECHNICIAN-C Ot 414.00 11/04/2014 NEW, BEENA Alejo VIDEO TECHNICIAN-C Ot 585.3 11/04/2014 NEW, BEENA Alejo VIDEO TECHNICIAN-C Ot 588.81 11/04/2014 NEW, BEENA Alejo VIDEO TECHNICIAN-C Ot 723.0 11/04/2014 BEENA DANIELSON G. VIDEO TECHNICIAN-C Ot 791.0 11/04/2014 NEW, BEENA Alejo VIDEO TECHNICIAN-C Ot 796.4 03/07/2015 Ot 735.0 03/07/2015 Ot V72.83 03/07/2015 Ot V74.8 03/07/2015 Ot 735.0 03/07/2015 Ot V64.3 03/07/2015 Ot 414.01 03/07/2015 Ot 735.0 03/07/2015 Ot V58.63 03/07/2015 Ot V72.63 03/07/2015 NEW, BEENA Alejo VIDEO TECHNICIAN-C Ot 244.9 03/07/2015 NEW, BEENA Alejo VIDEO TECHNICIAN-C Ot 250.40 03/07/2015 NEW, BEENA Alejo VIDEO TECHNICIAN-C Ot 263.9 03/07/2015 NEW, BEENA Alejo VIDEO TECHNICIAN-C Ot 268.9 03/07/2015 NEW, BEENA Alejo VIDEO TECHNICIAN-C Ot 272.4 03/07/2015 NEW, BEENA Alejo VIDEO TECHNICIAN-C Ot 276.7 03/07/2015 NEW, BEENA Alejo VIDEO TECHNICIAN-C Ot 285.21 03/07/2015 NEW, BEENA Alejo VIDEO TECHNICIAN-C Ot 404.10 03/07/2015 NEW, BEENA Alejo VIDEO TECHNICIAN-C Ot 414.00 03/07/2015 NEW, BEENA Alejo VIDEO TECHNICIAN-C Ot 585.3 03/07/2015 NEW, BEENA Alejo VIDEO TECHNICIAN-C Ot 588.81 03/07/2015 NEW, BEENA Alejo VIDEO TECHNICIAN-C Ot 723.0 03/07/2015 NEW, BEENA Alejo VIDEO TECHNICIAN-C Ot 791.0 03/07/2015 NEW, BEENA Alejo VIDEO TECHNICIAN-C Ot 796.4 03/30/2015 NEW, BEENA Alejo VIDEO TECHNICIAN-C Ot D63.1 03/30/2015 NEW, BEENA G. VIDEO TECHNICIAN-C Ot D72.819 03/30/2015 NEW, BEENA Alejo VIDEO TECHNICIAN-C Ot E03.9 03/30/2015 NEW, BEENA Alejo VIDEO TECHNICIAN-C Ot E11.29 03/30/2015 NEW, BEENA Mahoney. VIDEO TECHNICIAN-C Ot E46 03/30/2015 NEW, BEENA Alejo VIDEO TECHNICIAN-C Ot E55.9 03/30/2015 NEW, BEENA Alejo NP-C Ot E78.5 03/30/2015 NEW, BEENA Alejo VIDEO TECHNICIAN-C Ot E87.5 03/30/2015 NEW, BEENA Alejo VIDEO TECHNICIAN-C Ot I13.10 03/30/2015 NEW, BEENA Alejo VIDEO TECHNICIAN-C Ot I25.10 03/30/2015 NEW, BEENA Alejo NP-C Ot M48.02 03/30/2015 NEW, BEENA Alejo NP-C Ot N18.4 03/30/2015 NEW, BEENA Alejo VIDEO TECHNICIAN-C Ot R80.9 05/28/2015 Ot 735.0 05/28/2015 Ot V72.83 05/28/2015 Ot V74.8 05/28/2015 Ot 735.0 05/28/2015 Ot V64.3 05/28/2015 Ot 414.01 05/28/2015 Ot 735.0 05/28/2015 Ot V58.63 05/28/2015 Ot V72.63 05/28/2015 NEW, BEENA Alejo VIDEO TECHNICIAN-C Ot 244.9 05/28/2015 NEW, BEENA Alejo VIDEO TECHNICIAN-C Ot 250.40 05/28/2015 NEW, BEENA Alejo VIDEO TECHNICIAN-C Ot 263.9 05/28/2015 NEW, BEENA Alejo VIDEO TECHNICIAN-C Ot 268.9 05/28/2015 NEW, BEENA Alejo VIDEO TECHNICIAN-C Ot 272.4 05/28/2015 NEW, BEENA Alejo VIDEO TECHNICIAN-C Ot 276.7 05/28/2015 NEW, BEENA Alejo VIDEO TECHNICIAN-C Ot 285.21 05/28/2015 NEW, BEENA Alejo VIDEO TECHNICIAN-C Ot 404.10 05/28/2015 NEW, BEENA Alejo VIDEO TECHNICIAN-C Ot 414.00 05/28/2015 NEW, EBENA Alejo VIDEO TECHNICIAN-C Ot 585.3 05/28/2015 NEW, BEENA G. VIDEO TECHNICIAN-C Ot 588.81 05/28/2015 NEW, BEENA G. VIDEO TECHNICIAN-C Ot 723.0 05/28/2015 NEW, BEENA G. VIDEO TECHNICIAN-C Ot 791.0 05/28/2015 NEW, BEENA Alejo VIDEO TECHNICIAN-C Ot 796.4 05/28/2015 NEW, BEENA Alejo VIDEO TECHNICIAN-C Ot D63.1 05/28/2015 NEW, BEENA Alejo VIDEO TECHNICIAN-C Ot D72.819 05/28/2015 NEW, BEENA Alejo VIDEO TECHNICIAN-C Ot E03.9 05/28/2015 NEW, BEENA Alejo VIDEO TECHNICIAN-C Ot E11.29 05/28/2015 NEW, BEENA Alejo VIDEO TECHNICIAN-C Ot E46 05/28/2015 NEW, BEENA Alejo VIDEO TECHNICIAN-C Ot E55.9 05/28/2015 NEW, BEENA Alejo VIDEO TECHNICIAN-C Ot E78.5 05/28/2015 NEW, BEENA Alejo VIDEO TECHNICIAN-C Ot E87.5 05/28/2015 NEW, BEENA Alejo VIDEO TECHNICIAN-C Ot I13.10 05/28/2015 NEW, BEENA Alejo VIDEO TECHNICIAN-C Ot I25.10 05/28/2015 NEW, BEENA Alejo VIDEO TECHNICIAN-C Ot M48.02 05/28/2015 NEW, BEENA Alejo VIDEO TECHNICIAN-C Ot N18.4 05/28/2015 NEW, BEENA Alejo VIDEO TECHNICIAN-C Ot R80.9 05/28/2015 DONNIE CARLTON APRN Ot [...] NEC 09/25/2015 Ot 414.01 CORONARY ATHEROSCLEROSIS OF [place] CORON 09/25/2015 Ot 735.0 HALLUX VALGUS 09/25/2015 Ot V58.63 LONG-TERM( CURRENT)USE OF ANTIPLATELET/AN 09/25/2015 Ot V72.63 PRE- PROCEDURAL LABORATORY EXAMINATION 09/25/2015 BEENA DANIELSON VIDEO TECHNICIAN-C Ot 244.9 HYPOTHYROIDISM NOS 09/25/2015 BEENA DANIELSON VIDEO TECHNICIAN-C Ot 250.40 DIAB W RENAL MANIFEST, TYPE II OR UNSPEC 09/25/2015 BEENA DANIELSON VIDEO TECHNICIAN-C Ot 263.9 PROTEIN-ANA MALNUTR NOS 09/25/2015 BEENA DANIELSON VIDEO TECHNICIAN-C Ot 268.9 VITAMIN D DEFICIENCY NOS 09/25/2015 BEENA DANIELSON VIDEO TECHNICIAN-C Ot 272.4 HYPERLIPIDEMIA NEC/NOS 09/25/2015 BEENA DANIELSON VIDEO TECHNICIAN-C Ot 276.7 HYPERPOTASSEMIA 09/25/2015 BEENA DANIELSON VIDEO TECHNICIAN-C Ot 285.21 ANEMIA IN CHRONIC KIDNEY DISEASE 09/25/2015 BEENA DANIELSON VIDEO TECHNICIAN-C Ot 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, BENIGN, 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 09/25/2015 BEENA DANIELSON VIDEO TECHNICIAN-C Ot 414.00 CORON ATHEROSCLER NOS TYPE VESSEL, NATIV 09/25/2015 BEENA DANIELSON VIDEO TECHNICIAN-C Ot 585.3 CHRONIC KIDNEY DISEASE, STAGE III (MODER 09/25/2015 BEENA DANIELSON VIDEO TECHNICIAN-C Ot 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 09/25/2015 BEENA DANIELSON VIDEO TECHNICIAN-C Ot 723.0 CERVICAL SPINAL STENOSIS 09/25/2015 BEENA DANIELSON VIDEO TECHNICIAN-C Ot 791.0 PROTEINURIA 09/25/2015 BEENA DANIELSON VIDEO TECHNICIAN-C Ot 796.4 ABN CLINICAL FINDING NEC 09/25/2015 BEENA DANIELSON VIDEO TECHNICIAN-C Ot D63.1 ANEMIA IN CHRONIC KIDNEY DISEASE 09/25/2015 BEENA DANIELSON VIDEO TECHNICIAN-C Ot D72.819 DECREASED WHITE BLOOD CELL COUNT, UNSPEC 09/25/2015 BEENA DANIELSON VIDEO TECHNICIAN-C Ot E03.9 HYPOTHYROIDISM, UNSPECIFIED 09/25/2015 NEW, BEENA Alejo VIDEO TECHNICIAN-C Ot E11.29 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 09/25/2015 NEW, BEENA Alejo VIDEO TECHNICIAN-C Ot E46 UNSPECIFIED PROTEIN-[place] MALNUTRITION 09/25/2015 NEW, BEENA Alejo VIDEO TECHNICIAN-C Ot E55.9 VITAMIN D DEFICIENCY, UNSPECIFIED 09/25/2015 NEW, BEENA Alejo NP-C Ot E78.5 HYPERLIPIDEMIA, UNSPECIFIED 09/25/2015 NEW, BEENA Alejo NP-C Ot E87.5 HYPERKALEMIA 09/25/2015 NEW, BEENA Alejo VIDEO TECHNICIAN-C Ot 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, W S 09/25/2015 NEW, BEENA Alejo VIDEO TECHNICIAN-C Ot I25.10 ATHSCL HEART DISEASE OF [place] CORONARY 09/25/2015 NEW, BEENA Alejo VIDEO TECHNICIAN-C Ot M48.02 SPINAL STENOSIS, CERVICAL REGION 09/25/2015 NEW, BEENA Alejo VIDEO TECHNICIAN-C Ot N18.4 CHRONIC KIDNEY DISEASE, STAGE 4 (SEVERE) 09/25/2015 NEW, BEENA Alejo VIDEO TECHNICIAN-C Ot R80.9 PROTEINURIA, UNSPECIFIED 09/26/2015 NEW, BEENA Alejo VIDEO TECHNICIAN-C Ot D63.1 ANEMIA IN CHRONIC KIDNEY DISEASE 09/26/2015 NEW, BEENA Alejo VIDEO TECHNICIAN-C Ot D72.819 DECREASED WHITE BLOOD CELL COUNT, UNSPEC 09/26/2015 NEW, BEENA Alejo NP-C Ot E03.9 HYPOTHYROIDISM, UNSPECIFIED 09/26/2015 NEW, BEENA Alejo NP-C Ot 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 09/26/2015 NEW, BEENA Alejo VIDEO TECHNICIAN-C Ot E46 UNSPECIFIED PROTEIN-[place] MALNUTRITION 09/26/2015 NEW, BEENA Alejo VIDEO TECHNICIAN-C Ot E55.9 VITAMIN D DEFICIENCY, UNSPECIFIED 09/26/2015 NEW, BEENA Alejo VIDEO TECHNICIAN-C Ot E78.5 HYPERLIPIDEMIA, UNSPECIFIED 09/26/2015 NEW, BEENA Alejo VIDEO TECHNICIAN-C Ot E87.5 HYPERKALEMIA 09/26/2015 NEW, BEENA Alejo VIDEO TECHNICIAN-C Ot 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, W S 09/26/2015 NEW, BEENA MahoneySheree VIDEO TECHNICIAN-C Ot I25.10 ATHSCL HEART DISEASE OF [place] CORONARY 09/26/2015 NEW, BEENA Alejo VIDEO TECHNICIAN-C Ot M48.02 SPINAL STENOSIS, CERVICAL REGION 09/26/2015 NEW, BEENA Alejo VIDEO TECHNICIAN-C Ot N18.4 CHRONIC KIDNEY DISEASE, STAGE 4 (SEVERE) 09/26/2015 NEW, BEENA Alejo VIDEO TECHNICIAN-C Ot 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 09/26/2015 NEW, BEENA GSheree VIDEO TECHNICIAN-C Ot R80.9 PROTEINURIA, UNSPECIFIED 09/27/2015 NEW, BEENA GSheree VIDEO TECHNICIAN-C Ot D63.1 ANEMIA IN CHRONIC KIDNEY DISEASE 09/27/2015 NEW, BEENA Alejo VIDEO TECHNICIAN-C Ot D72.819 DECREASED WHITE BLOOD CELL COUNT, UNSPEC 09/27/2015 NEW, BEENA MahoneySheree VIDEO TECHNICIAN-C Ot E03.9 HYPOTHYROIDISM, UNSPECIFIED 09/27/2015 NEW, BEENA GSheree VIDEO TECHNICIAN-C Ot 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 09/27/2015 NEW, BEENA GSheree VIDEO TECHNICIAN-C Ot E46 UNSPECIFIED PROTEIN-[place] MALNUTRITION 09/27/2015 NEW, BEENA MahoneySheree VIDEO TECHNICIAN-C Ot E55.9 VITAMIN D DEFICIENCY, UNSPECIFIED 09/27/2015 NEW, BEENA Alejo VIDEO TECHNICIAN-C Ot E78.5 HYPERLIPIDEMIA, UNSPECIFIED 09/27/2015 NEW, BEENA Alejo VIDEO TECHNICIAN-C Ot E87.5 HYPERKALEMIA 09/27/2015 NEW, BEENA Alejo VIDEO TECHNICIAN-C Ot 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, W S 09/27/2015 NEW, BEENA GSheree VIDEO TECHNICIAN-C Ot I25.10 ATHSCL HEART DISEASE OF [place] CORONARY 09/27/2015 NEW, BEENA MahoneySheree VIDEO TECHNICIAN-C Ot M48.02 SPINAL STENOSIS, CERVICAL REGION 09/27/2015 NEW, BEENA Alejo VIDEO TECHNICIAN-C Ot 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 09/27/2015 NEW, BEENA MahoneySheree VIDEO TECHNICIAN-C Ot R80.9 PROTEINURIA, UNSPECIFIED 10/02/2015 NEW, BEENA GSheree VIDEO TECHNICIAN-C Ot E11.29 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 10/02/2015 NEW, BEENA MaruSheree VIDEO TECHNICIAN-C Ot N18.4 CHRONIC KIDNEY DISEASE, STAGE 4 (SEVERE) 10/31/2015 NEW, BEENA MahoneySheree VIDEO TECHNICIAN-C Ot D63.1 ANEMIA IN CHRONIC KIDNEY DISEASE 10/31/2015 NEW, BEENA Alejo VIDEO TECHNICIAN-C Ot D72.819 DECREASED WHITE BLOOD CELL COUNT, UNSPEC 10/31/2015 NEW, BEENA MahoneySheree VIDEO TECHNICIAN-C Ot E03.9 HYPOTHYROIDISM, UNSPECIFIED 10/31/2015 NEW, BEENA MahoneySheree VIDEO TECHNICIAN-C Ot 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 10/31/2015 NEW, BEENA MaruSheree VIDEO TECHNICIAN-C Ot E46 UNSPECIFIED PROTEIN-CALORIE MALNUTRITION 10/31/2015 NEW, BEENA MahoneySheree VIDEO TECHNICIAN-C Ot E55.9 VITAMIN D DEFICIENCY, UNSPECIFIED 10/31/2015 NEW, BEENA MahoneySheree VIDEO TECHNICIAN-C Ot E78.5 HYPERLIPIDEMIA, UNSPECIFIED 10/31/2015 NEW, BEENA GSheree VIDEO TECHNICIAN-C Ot E87.5 HYPERKALEMIA 10/31/2015 NEW, BEENA MahoneySheree VIDEO TECHNICIAN-C Ot 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, W S 10/31/2015 NEW, BEENA MahoneySheree VIDEO TECHNICIAN-C Ot I25.10 ATHSCL HEART DISEASE OF [place] CORONARY 10/31/2015 NEW, BEENA MahoneySheree VIDEO TECHNICIAN-C Ot M48.02 SPINAL STENOSIS, CERVICAL REGION 10/31/2015 NEW, BEENA GSheree VIDEO TECHNICIAN-C Ot N18.4 CHRONIC KIDNEY DISEASE, STAGE 4 (SEVERE) 10/31/2015 NEW, BEENA GSheree VIDEO TECHNICIAN-C Ot 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 10/31/2015 NEW, BEENA MahoneySheree VIDEO TECHNICIAN-C Ot R80.9 PROTEINURIA, UNSPECIFIED 12/24/2015 NEW, BEENA GSheree VIDEO TECHNICIAN-C Ot D63.1 ANEMIA IN CHRONIC KIDNEY DISEASE 12/24/2015 NEW, BEENA MahoneySheree VIDEO TECHNICIAN-C Ot D72.819 DECREASED WHITE BLOOD CELL COUNT, UNSPEC 12/24/2015 NEW, BEENA MaruSheree VIDEO TECHNICIAN-C Ot E03.9 HYPOTHYROIDISM, UNSPECIFIED 12/24/2015 NEW, BEENA MaruSheree VIDEO TECHNICIAN-C Ot 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 12/24/2015 NEW, BEENA MaruSheree VIDEO TECHNICIAN-C Ot E46 UNSPECIFIED PROTEIN-CALORIE MALNUTRITION 12/24/2015 NEW, BEENA Alejo VIDEO TECHNICIAN-C Ot E55.9 VITAMIN D DEFICIENCY, UNSPECIFIED 12/24/2015 NEW, BEENA Alejo VIDEO TECHNICIAN-C Ot E78.5 HYPERLIPIDEMIA, UNSPECIFIED 12/24/2015 NEW, BEENA MaruSheree VIDEO TECHNICIAN-C Ot E87.5 HYPERKALEMIA 12/24/2015 NEW, BEENA MaruSheree VIDEO TECHNICIAN-C Ot 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, W S 12/24/2015 NEW, BEENA MaruSheree VIDEO TECHNICIAN-C Ot I25.10 ATHSCL HEART DISEASE OF [place] CORONARY 12/24/2015 NEW, BEENA Alejo VIDEO TECHNICIAN-C Ot M48.02 SPINAL STENOSIS, CERVICAL REGION 12/24/2015 NEW, BEENA Alejo VIDEO TECHNICIAN-C Ot N18.4 CHRONIC KIDNEY DISEASE, STAGE 4 (SEVERE) 12/24/2015 NEW, BEENA Alejo VIDEO TECHNICIAN-C Ot 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 12/24/2015 NEW, BEENA Alejo VIDEO TECHNICIAN-C Ot R80.9 PROTEINURIA, UNSPECIFIED 03/27/2016 Ot 414.01 CORONARY ATHEROSCLEROSIS OF [place] CORON 03/27/2016 Ot 735.0 HALLUX VALGUS 03/27/2016 Ot V58.63 LONG-TERM( CURRENT)USE OF ANTIPLATELET/AN 03/27/2016 Ot V72.63 PRE- PROCEDURAL LABORATORY EXAMINATION 03/27/2016 NEW, BEENA Alejo VIDEO TECHNICIAN-C Ot 244.9 HYPOTHYROIDISM NOS 03/27/2016 NEW, BEENA Alejo VIDEO TECHNICIAN-C Ot 250.40 DIAB W RENAL MANIFEST, TYPE II OR UNSPEC 03/27/2016 NEW, BEENA Alejo VIDEO TECHNICIAN-C Ot 263.9 PROTEIN-ANA MALNUTR NOS 03/27/2016 NEW, BEENA Alejo VIDEO TECHNICIAN-C Ot 268.9 VITAMIN D DEFICIENCY NOS 03/27/2016 NEW, BEENA Alejo VIDEO TECHNICIAN-C Ot 272.4 HYPERLIPIDEMIA NEC/NOS 03/27/2016 NEW, BEENA Alejo VIDEO TECHNICIAN-C Ot 276.7 HYPERPOTASSEMIA 03/27/2016 NEW, BEENA Alejo VIDEO TECHNICIAN-C Ot 285.21 ANEMIA IN CHRONIC KIDNEY DISEASE 03/27/2016 JAGJIT, BEENA Alejo VIDEO TECHNICIAN-C Ot 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, BENIGN, 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 03/27/2016 NEW, BEENA Alejo VIDEO TECHNICIAN-C Ot 414.00 CORON ATHEROSCLER NOS TYPE VESSEL, NATIV 03/27/2016 NEW, BEENA Alejo VIDEO TECHNICIAN-C Ot 585.3 CHRONIC KIDNEY DISEASE, STAGE III (MODER 03/27/2016 BEENA DANIELSON VIDEO TECHNICIAN-C Ot 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 03/27/2016 BEENA DANIELSON VIDEO TECHNICIAN-C Ot 723.0 CERVICAL SPINAL STENOSIS 03/27/2016 BEENA DANIELSON VIDEO TECHNICIAN-C Ot 791.0 PROTEINURIA 03/27/2016 BEENA DANIELSON VIDEO TECHNICIAN-C Ot 796.4 ABN CLINICAL FINDING NEC 03/27/2016 BEENA DANIELSON VIDEO TECHNICIAN-C Ot D63.1 ANEMIA IN CHRONIC KIDNEY DISEASE 03/27/2016 BEENA DANIELSON VIDEO TECHNICIAN-C Ot D72.819 DECREASED WHITE BLOOD CELL COUNT, UNSPEC 03/27/2016 BEENA DANIELSON VIDEO TECHNICIAN-C Ot E03.9 HYPOTHYROIDISM, UNSPECIFIED 03/27/2016 BEENA DANIELSON VIDEO TECHNICIAN-C Ot E11.29 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 03/27/2016 BEENA DANIELSON VIDEO TECHNICIAN-C Ot E46 UNSPECIFIED PROTEIN-CALORIE MALNUTRITION 03/27/2016 BEENA DANIELSON VIDEO TECHNICIAN-C Ot E55.9 VITAMIN D DEFICIENCY, UNSPECIFIED 03/27/2016 BEENA DANIELSON VIDEO TECHNICIAN-C Ot E78.5 HYPERLIPIDEMIA, UNSPECIFIED 03/27/2016 BEENA DANIELSON VIDEO TECHNICIAN-C Ot E87.5 HYPERKALEMIA 03/27/2016 BEENA DANIELSON VIDEO TECHNICIAN-C Ot 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, W S 03/27/2016 BEENA DANIELSON VIDEO TECHNICIAN-C Ot I25.10 ATHSCL HEART DISEASE OF [place] CORONARY 03/27/2016 BEENA DANIELSON VIDEO TECHNICIAN-C Ot M48.02 SPINAL STENOSIS, CERVICAL REGION 03/27/2016 BEENA DANIELSON VIDEO TECHNICIAN-C Ot N18.4 CHRONIC KIDNEY DISEASE, STAGE 4 (SEVERE) 03/27/2016 BEENA DANIELSON VIDEO TECHNICIAN-C Ot R80.9 PROTEINURIA, UNSPECIFIED 03/27/2016 BEENA DANIELSON VIDEO TECHNICIAN-C Ot D63.1 ANEMIA IN CHRONIC KIDNEY DISEASE 03/27/2016 BEENA DANIELSON VIDEO TECHNICIAN-C Ot D72.819 DECREASED WHITE BLOOD CELL COUNT, UNSPEC 03/27/2016 BEENA DANIELSON VIDEO TECHNICIAN-C Ot E03.9 HYPOTHYROIDISM, UNSPECIFIED 03/27/2016 BEENA DANIELSON MaruSheree VIDEO TECHNICIAN-C Ot 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 03/27/2016 NEW, BEENA MaruSheree VIDEO TECHNICIAN-C Ot E46 UNSPECIFIED PROTEIN-CALORIE MALNUTRITION 03/27/2016 NEW, BEENA MaruSheree VIDEO TECHNICIAN-C Ot E55.9 VITAMIN D DEFICIENCY, UNSPECIFIED 03/27/2016 NEW, BEENA GSheree VIDEO TECHNICIAN-C Ot E78.5 HYPERLIPIDEMIA, UNSPECIFIED 03/27/2016 NEW, BEENA GSheree VIDEO TECHNICIAN-C Ot E87.5 HYPERKALEMIA 03/27/2016 NEW, BEENA MahoenySheree VIDEO TECHNICIAN-C Ot 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, W S 03/27/2016 NEW, BEENA GSheree VIDEO TECHNICIAN-C Ot I25.10 ATHSCL HEART DISEASE OF [place] CORONARY 03/27/2016 NEW, BEENA MaruSheree VIDEO TECHNICIAN-C Ot M48.02 SPINAL STENOSIS, CERVICAL REGION 03/27/2016 NEW, BEENA MaruSheree VIDEO TECHNICIAN-C Ot 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 03/27/2016 NEW, BEENA MaruSheree VIDEO TECHNICIAN-C Ot R80.9 PROTEINURIA, UNSPECIFIED 03/27/2016 NEW, BEENA MaruSheree VIDEO TECHNICIAN-C Ot D63.1 ANEMIA IN CHRONIC KIDNEY DISEASE 03/27/2016 NEW, BEENA GSheree VIDEO TECHNICIAN-C Ot D72.819 DECREASED WHITE BLOOD CELL COUNT, UNSPEC 03/27/2016 NEW, BEENA GSheree VIDEO TECHNICIAN-C Ot E03.9 HYPOTHYROIDISM, UNSPECIFIED 03/27/2016 NEW, BEENA MaruSheree VIDEO TECHNICIAN-C Ot 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 VIDEO TECHNICIAN-C Ot M48.02 SPINAL STENOSIS, CERVICAL REGION 03/27/2016 NEW, BEENA Alejo VIDEO TECHNICIAN-C Ot N18.4 CHRONIC KIDNEY DISEASE, STAGE 4 (SEVERE) 03/27/2016 NEW, BEENA G. 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 VIDEO TECHNICIAN-C Ot R80.9 PROTEINURIA, UNSPECIFIED 03/29/2016 NEW, BEENA G. VIDEO TECHNICIAN-C Ot D50.9 IRON DEFICIENCY ANEMIA, UNSPECIFIED 03/29/2016 NEW, BEENA G. VIDEO TECHNICIAN-C Ot D63.1 ANEMIA IN CHRONIC KIDNEY DISEASE 03/29/2016 NEW, BEENA MahoneySheree VIDEO TECHNICIAN-C Ot N18.3 CHRONIC KIDNEY DISEASE, STAGE 3 (MODERAT 04/01/2016 NEW, BEENA G. VIDEO TECHNICIAN-C Ot D50.9 IRON DEFICIENCY ANEMIA, UNSPECIFIED 04/01/2016 NEW, BEENA G. VIDEO TECHNICIAN-C Ot D63.1 ANEMIA IN CHRONIC KIDNEY DISEASE 04/01/2016 NEW, BEENA MahoneySheree VIDEO TECHNICIAN-C Ot N18.3 CHRONIC KIDNEY DISEASE, STAGE 3 (MODERAT 04/03/2016 NEW, BEENA G. VIDEO TECHNICIAN-C Ot D50.9 IRON DEFICIENCY ANEMIA, UNSPECIFIED 04/03/2016 NEW, BEENA G. VIDEO TECHNICIAN-C Ot D63.1 ANEMIA IN CHRONIC KIDNEY DISEASE 04/03/2016 NEW, BEENA G. VIDEO TECHNICIAN-C Ot N18.3 CHRONIC KIDNEY DISEASE, STAGE 3 (MODERAT 04/03/2016 NEW, BEENA G. VIDEO TECHNICIAN-C Ot D50.9 IRON DEFICIENCY ANEMIA, UNSPECIFIED 04/03/2016 NEW, BEENA G. VIDEO TECHNICIAN-C Ot D63.1 ANEMIA IN CHRONIC KIDNEY DISEASE 04/03/2016 NEW, BEENA G. VIDEO TECHNICIAN-C Ot N18.3 CHRONIC KIDNEY DISEASE, STAGE 3 (MODERAT 04/05/2016 NEW, BEENA G. VIDEO TECHNICIAN-C Ot D50.9 IRON DEFICIENCY ANEMIA, UNSPECIFIED 04/05/2016 NEW, BEENA G. VIDEO TECHNICIAN-C Ot D63.1 ANEMIA IN CHRONIC KIDNEY DISEASE 04/05/2016 NEW, BEENA G. VIDEO TECHNICIAN-C Ot N18.3 CHRONIC KIDNEY DISEASE, STAGE 3 (MODERAT 05/06/2016 NEW, BEENA G. VIDEO TECHNICIAN-C Ot D50.9 IRON DEFICIENCY ANEMIA, UNSPECIFIED 05/06/2016 NEW, BEENA MahoneySheree VIDEO TECHNICIAN-C Ot D63.1 ANEMIA IN CHRONIC KIDNEY DISEASE 05/06/2016 NEW, BEENA MahoneySheree VIDEO TECHNICIAN-C Ot N18.3 CHRONIC KIDNEY DISEASE, STAGE 3 (MODERAT 06/25/2016 NEW, BEENA GSheree VIDEO TECHNICIAN-C Ot D50.9 IRON DEFICIENCY ANEMIA, UNSPECIFIED 06/25/2016 NEW, BEENA GSheree VIDEO TECHNICIAN-C Ot D63.1 ANEMIA IN CHRONIC KIDNEY DISEASE 06/25/2016 NEW, BEENA GSheree VIDEO TECHNICIAN-C Ot N18.3 CHRONIC KIDNEY DISEASE, STAGE 3 (MODERAT 08/18/2016 NEW, BEENA MahoneySheree VIDEO TECHNICIAN-C Ot D63.1 ANEMIA IN CHRONIC KIDNEY DISEASE 08/18/2016 NEW, BEENA MaruSheree VIDEO TECHNICIAN-C Ot D72.819 DECREASED WHITE BLOOD CELL COUNT, UNSPEC 08/18/2016 NEW, BEENA Alejo VIDEO TECHNICIAN-C Ot E03.9 HYPOTHYROIDISM, UNSPECIFIED 08/18/2016 NEW, BEENA Alejo VIDEO TECHNICIAN-C Ot E11.29 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 08/18/2016 NEW, BEENA MaruSheree VIDEO TECHNICIAN-C Ot E46 UNSPECIFIED PROTEIN-[place] MALNUTRITION 08/18/2016 NEW, BEENA MaruSheree VIDEO TECHNICIAN-C Ot E55.9 VITAMIN D DEFICIENCY, UNSPECIFIED 08/18/2016 NEW, BEENA Alejo VIDEO TECHNICIAN-C Ot E78.5 HYPERLIPIDEMIA, UNSPECIFIED 08/18/2016 NEW, BEENA Alejo VIDEO TECHNICIAN-C Ot E87.5 HYPERKALEMIA 08/18/2016 NEW, BEENA Alejo VIDEO TECHNICIAN-C Ot 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, W S 08/18/2016 NEW, BEENA MaruSheree VIDEO TECHNICIAN-C Ot I25.10 ATHSCL HEART DISEASE OF [place] CORONARY 08/18/2016 NEW, BEENA Alejo VIDEO TECHNICIAN-C Ot M48.02 SPINAL STENOSIS, CERVICAL REGION 08/18/2016 NEW, BEENA Alejo VIDEO TECHNICIAN-C Ot N18.4 CHRONIC KIDNEY DISEASE, STAGE 4 (SEVERE) 08/18/2016 NEW, BEENA Alejo VIDEO TECHNICIAN-C Ot 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 08/18/2016 NEW, BEENA Alejo VIDEO TECHNICIAN-C Ot R80.9 PROTEINURIA, UNSPECIFIED 08/18/2016 NEW, BEENA Alejo VIDEO TECHNICIAN-C Ot D63.1 ANEMIA IN CHRONIC KIDNEY DISEASE 08/18/2016 NEW, BEENA Alejo VIDEO TECHNICIAN-C Ot D72.819 DECREASED WHITE BLOOD CELL COUNT, UNSPEC 08/18/2016 NEW, BEENA Alejo VIDEO TECHNICIAN-C Ot E03.9 HYPOTHYROIDISM, UNSPECIFIED 08/18/2016 NEW, BEENA Alejo VIDEO TECHNICIAN-C Ot E11.29 TYPE 2 DIABETES MELLITUS W [facility] [place] [facility] 08/18/2016 NEW, BEENA Alejo VIDEO TECHNICIAN-C Ot E46 UNSPECIFIED PROTEIN-[place] MALNUTRITION 08/18/2016 NEW, BEENA Alejo VIDEO TECHNICIAN-C Ot E55.9 VITAMIN D DEFICIENCY, UNSPECIFIED 08/18/2016 NEW, BEENA Alejo VIDEO TECHNICIAN-C Ot E78.5 HYPERLIPIDEMIA, UNSPECIFIED 08/18/2016 NEW, BEENA Alejo VIDEO TECHNICIAN-C Ot E87.5 HYPERKALEMIA 08/18/2016 NEW, BEENA Alejo VIDEO TECHNICIAN-C Ot 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, W S 08/18/2016 NEW, BEENA Alejo VIDEO TECHNICIAN-C Ot I25.10 ATHSCL HEART DISEASE OF [place] CORONARY 08/18/2016 NEW, BEENA Alejo VIDEO TECHNICIAN-C Ot M48.02 SPINAL STENOSIS, CERVICAL REGION 08/18/2016 NEW, BEENA Alejo VIDEO TECHNICIAN-C Ot N18.4 CHRONIC KIDNEY DISEASE, STAGE 4 (SEVERE) 08/18/2016 NEW, BEENA Alejo VIDEO TECHNICIAN-C Ot 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 08/18/2016 NEW, BEENA Alejo VIDEO TECHNICIAN-C Ot R80.9 PROTEINURIA, UNSPECIFIED 09/06/2016 NEW, BEENA MahoneySheree VIDEO TECHNICIAN-C Ot D63.1 ANEMIA IN CHRONIC KIDNEY DISEASE 09/06/2016 NEW, BEENA Alejo VIDEO TECHNICIAN-C Ot D72.819 DECREASED WHITE BLOOD CELL COUNT, UNSPEC 09/06/2016 NEW, BEENA MahoneySheree VIDEO TECHNICIAN-C Ot E03.9 HYPOTHYROIDISM, UNSPECIFIED 09/06/2016 NEW, BEENA Alejo VIDEO TECHNICIAN-C Ot E11.29 TYPE 2 DIABETES MELLITUS W [facility] [place] [facility] 09/06/2016 NEW, BEENA MahoneySheree VIDEO TECHNICIAN-C Ot E46 UNSPECIFIED PROTEIN-[place] MALNUTRITION 09/06/2016 NEW, BEENA GSheree VIDEO TECHNICIAN-C Ot E55.9 VITAMIN D DEFICIENCY, UNSPECIFIED 09/06/2016 NEW, BEENA MaruSheree VIDEO TECHNICIAN-C Ot E78.5 HYPERLIPIDEMIA, UNSPECIFIED 09/06/2016 NEW, BEENA MaruSheree VIDEO TECHNICIAN-C Ot E87.5 HYPERKALEMIA 09/06/2016 NEW, BEENA MaruSheree VIDEO TECHNICIAN-C Ot 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, W S 09/06/2016 NEW, BEENA MaruSheree VIDEO TECHNICIAN-C Ot I25.10 ATHSCL HEART DISEASE OF [place] CORONARY 09/06/2016 NEW, BEENA MaruSheree VIDEO TECHNICIAN-C Ot M48.02 SPINAL STENOSIS, CERVICAL REGION 09/06/2016 NEW, BEENA MaruSheree VIDEO TECHNICIAN-C Ot N18.4 CHRONIC KIDNEY DISEASE, STAGE 4 (SEVERE) 09/06/2016 NEW, BEENA Alejo VIDEO TECHNICIAN-C Ot 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 09/06/2016 NEW, BEENA MaruSheree VIDEO TECHNICIAN-C Ot R80.9 PROTEINURIA, UNSPECIFIED 03/21/2017 NEW, BEENA Alejo VIDEO TECHNICIAN-C Ot 244.9 HYPOTHYROIDISM NOS 03/21/2017 NEW, BEENA MaruSheree VIDEO TECHNICIAN-C Ot 250.40 DIAB W RENAL MANIFEST, TYPE II OR UNSPEC 03/21/2017 NEW, BEENA MaruSheree VIDEO TECHNICIAN-C Ot 263.9 PROTEIN-ANA MALNUTR NOS 03/21/2017 NEW, BEENA MaruSheree VIDEO TECHNICIAN-C Ot 268.9 VITAMIN D DEFICIENCY NOS 03/21/2017 NEW, BEENA MaruSheree VIDEO TECHNICIAN-C Ot 272.4 HYPERLIPIDEMIA NEC/NOS 03/21/2017 NEW, BEENA MaruSheree VIDEO TECHNICIAN-C Ot 276.7 HYPERPOTASSEMIA 03/21/2017 NEW, BEENA MaruSheree VIDEO TECHNICIAN-C Ot 285.21 ANEMIA IN CHRONIC KIDNEY DISEASE 03/21/2017 NEW, BEENA MaruSheree VIDEO TECHNICIAN-C Ot 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, BENIGN, 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 03/21/2017 NEW, BEENA MaruSheree VIDEO TECHNICIAN-C Ot 414.00 CORON ATHEROSCLER NOS TYPE VESSEL, NATIV 03/21/2017 NEW, BEENA Alejo VIDEO TECHNICIAN-C Ot 585.3 CHRONIC KIDNEY DISEASE, STAGE III (MODER 03/21/2017 NEW, BEENA Alejo VIDEO TECHNICIAN-C Ot 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 03/21/2017 NEW, BEENA Alejo VIDEO TECHNICIAN-C Ot 723.0 CERVICAL SPINAL STENOSIS 03/21/2017 NEW, BEENA Alejo VIDEO TECHNICIAN-C Ot 791.0 PROTEINURIA 03/21/2017 NEW, BEENA Alejo VIDEO TECHNICIAN-C Ot 796.4 ABN CLINICAL FINDING NEC 03/21/2017 NEW, BEENA MahoneySheree VIDEO TECHNICIAN-C Ot D63.1 ANEMIA IN CHRONIC KIDNEY DISEASE 03/21/2017 NEW, BEENA Alejo VIDEO TECHNICIAN-C Ot D72.819 DECREASED WHITE BLOOD CELL COUNT, UNSPEC 03/21/2017 NEW, BEENA MaruSheree VIDEO TECHNICIAN-C Ot E03.9 HYPOTHYROIDISM, UNSPECIFIED 03/21/2017 NEW, BEENA GSheree VIDEO TECHNICIAN-C Ot E11.29 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 03/21/2017 NEW, BEENA MahoneySheree VIDEO TECHNICIAN-C Ot E46 UNSPECIFIED PROTEIN-CALORIE MALNUTRITION 03/21/2017 NEW, BEENA MahoneySheree VIDEO TECHNICIAN-C Ot E55.9 VITAMIN D DEFICIENCY, UNSPECIFIED 03/21/2017 NEW, BEENA MahoneySheree VIDEO TECHNICIAN-C Ot E78.5 HYPERLIPIDEMIA, UNSPECIFIED 03/21/2017 NEW, BEENA GSheree VIDEO TECHNICIAN-C Ot E87.5 HYPERKALEMIA 03/21/2017 NEW, BEENA GSheree VIDEO TECHNICIAN-C Ot 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, W S 03/21/2017 NEW, BEENA Alejo VIDEO TECHNICIAN-C Ot I25.10 ATHSCL HEART DISEASE OF [place] CORONARY 03/21/2017 NEW, BEENA GSheree VIDEO TECHNICIAN-C Ot M48.02 SPINAL STENOSIS, CERVICAL REGION 03/21/2017 NEW, BEENA Alejo VIDEO TECHNICIAN-C Ot N18.4 CHRONIC KIDNEY DISEASE, STAGE 4 (SEVERE) 03/21/2017 NEW, BEENA MaruSheree VIDEO TECHNICIAN-C Ot R80.9 PROTEINURIA, UNSPECIFIED 03/21/2017 NEW, BEENA Alejo VIDEO TECHNICIAN-C Ot D63.1 ANEMIA IN CHRONIC KIDNEY DISEASE 03/21/2017 NEW, BEENA Alejo VIDEO TECHNICIAN-C Ot D72.819 DECREASED WHITE BLOOD CELL COUNT, UNSPEC 03/21/2017 NEW, BEENA GSheree VIDEO TECHNICIAN-C Ot E03.9 HYPOTHYROIDISM, UNSPECIFIED 03/21/2017 NEW, BEENA MahoneySheree VIDEO TECHNICIAN-C Ot 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 03/21/2017 NEW, BEENA MaruSheree VIDEO TECHNICIAN-C Ot E46 UNSPECIFIED PROTEIN-CALORIE MALNUTRITION 03/21/2017 NEW, BEENA MaruSheree VIDEO TECHNICIAN-C Ot E55.9 VITAMIN D DEFICIENCY, UNSPECIFIED 03/21/2017 NEW, BEENA MahoneySheree VIDEO TECHNICIAN-C Ot E78.5 HYPERLIPIDEMIA, UNSPECIFIED 03/21/2017 NEW, BEENA GSheree VIDEO TECHNICIAN-C Ot E87.5 HYPERKALEMIA 03/21/2017 NEW, BEENA MahoneySheree VIDEO TECHNICIAN-C Ot 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, W S 03/21/2017 NEW, BEENA GSheree VIDEO TECHNICIAN-C Ot I25.10 ATHSCL HEART DISEASE OF [place] CORONARY 03/21/2017 NEW, BEENA Alejo VIDEO TECHNICIAN-C Ot M48.02 SPINAL STENOSIS, CERVICAL REGION 03/21/2017 NEW, BEENA Alejo VIDEO TECHNICIAN-C Ot 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 03/21/2017 NEW, BEENA MaruSheree VIDEO TECHNICIAN-C Ot R80.9 PROTEINURIA, UNSPECIFIED 03/21/2017 NEW, BEENA Alejo VIDEO TECHNICIAN-C Ot D63.1 ANEMIA IN CHRONIC KIDNEY DISEASE 03/21/2017 NEW, BEENA MaruSheree VIDEO TECHNICIAN-C Ot D72.819 DECREASED WHITE BLOOD CELL COUNT, UNSPEC 03/21/2017 NEW, BEENA GSheree VIDEO TECHNICIAN-C Ot E03.9 HYPOTHYROIDISM, UNSPECIFIED 03/21/2017 NEW, BEENA GSheree VIDEO TECHNICIAN-C Ot 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 03/21/2017 NEW, BEENA MaruSheree VIDEO TECHNICIAN-C Ot E46 UNSPECIFIED PROTEIN-CALORIE MALNUTRITION 03/21/2017 NEW, BEENA MaruSheree VIDEO TECHNICIAN-C Ot E55.9 VITAMIN D DEFICIENCY, UNSPECIFIED 03/21/2017 NEW, BEENA MaruSheree VIDEO TECHNICIAN-C Ot E78.5 HYPERLIPIDEMIA, UNSPECIFIED 03/21/2017 NEW, BEENA GSheree VIDEO TECHNICIAN-C Ot E87.5 HYPERKALEMIA 03/21/2017 NEW, BEENA GSheree VIDEO TECHNICIAN-C Ot 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 VIDEO TECHNICIAN-C Ot 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 03/21/2017 NEW, BEENA GSheree VIDEO TECHNICIAN-C Ot R80.9 PROTEINURIA, UNSPECIFIED 03/21/2017 NEW, BEENA GSheree VIDEO TECHNICIAN-C Ot D63.1 ANEMIA IN CHRONIC KIDNEY DISEASE 03/21/2017 NEW, BEENA MahoneySheree VIDEO TECHNICIAN-C Ot D72.819 DECREASED WHITE BLOOD CELL COUNT, UNSPEC 03/21/2017 NEW, BEENA MaruSheree VIDEO TECHNICIAN-C Ot E03.9 HYPOTHYROIDISM, UNSPECIFIED 03/21/2017 NEW, BEENA GSheree VIDEO TECHNICIAN-C Ot E11.29 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 03/21/2017 NEW, BEENA MaruSheree VIDEO TECHNICIAN-C Ot E46 UNSPECIFIED PROTEIN-CALORIE MALNUTRITION 03/21/2017 NEW, BEENA MahoneySheree VIDEO TECHNICIAN-C Ot E55.9 VITAMIN D DEFICIENCY, UNSPECIFIED 03/21/2017 NEW, BEENA MaruSheree VIDEO TECHNICIAN-C Ot E78.5 HYPERLIPIDEMIA, UNSPECIFIED 03/21/2017 NEW, BEENA MaruSheree VIDEO TECHNICIAN-C Ot E87.5 HYPERKALEMIA 03/21/2017 NEW, BEENA MahoneySheree VIDEO TECHNICIAN-C Ot 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, W S 03/21/2017 NEW, BEENA MaruSheree VIDEO TECHNICIAN-C Ot I25.10 ATHSCL HEART DISEASE OF [place] CORONARY 03/21/2017 NEW, BEENA MahoneySheree VIDEO TECHNICIAN-C Ot M48.02 SPINAL STENOSIS, CERVICAL REGION 03/21/2017 NEW, BEENA MahoneySheree VIDEO TECHNICIAN-C Ot N18.4 CHRONIC KIDNEY DISEASE, STAGE 4 (SEVERE) 03/21/2017 NEW, BEENA MaruSheree VIDEO TECHNICIAN-C Ot 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 03/21/2017 NEW, BEENA MaruSheree VIDEO TECHNICIAN-C Ot R80.9 PROTEINURIA, UNSPECIFIED 03/31/2017 NEW, BEENA MaruSheree VIDEO TECHNICIAN-C Ot 244.9 HYPOTHYROIDISM NOS 03/31/2017 NEW, BEENA MaruSheree VIDEO TECHNICIAN-C Ot 250.40 DIAB W RENAL MANIFEST, TYPE II OR UNSPEC 03/31/2017 NEW, BEENA GSheree VIDEO TECHNICIAN-C Ot 263.9 PROTEIN-ANA MALNUTR NOS 03/31/2017 NEW, BEENA G. VIDEO TECHNICIAN-C Ot 268.9 VITAMIN D DEFICIENCY NOS 03/31/2017 NEW, BEENA G. 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 03/31/2017 NEW, BEENA Alejo VIDEO TECHNICIAN-C Ot 414.00 CORON ATHEROSCLER NOS TYPE VESSEL, NATIV 03/31/2017 NEW, BEENA Alejo VIDEO TECHNICIAN-C Ot 585.3 CHRONIC KIDNEY DISEASE, STAGE III (MODER 03/31/2017 NEW, BEENA Alejo VIDEO TECHNICIAN-C Ot 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 03/31/2017 NEW, BEENA Alejo VIDEO TECHNICIAN-C Ot 723.0 CERVICAL SPINAL STENOSIS 03/31/2017 NEW, BEENA Alejo VIDEO TECHNICIAN-C Ot 791.0 PROTEINURIA 03/31/2017 NEW, BEENA Alejo VIDEO TECHNICIAN-C Ot 796.4 ABN CLINICAL FINDING NEC 03/31/2017 NEW, BEENA Alejo VIDEO TECHNICIAN-C Ot D63.1 ANEMIA IN CHRONIC KIDNEY DISEASE 03/31/2017 NEW, BEENA Alejo VIDEO TECHNICIAN-C Ot D72.819 DECREASED WHITE BLOOD CELL COUNT, UNSPEC 03/31/2017 NEW, BEENA Alejo VIDEO TECHNICIAN-C Ot E03.9 HYPOTHYROIDISM, UNSPECIFIED 03/31/2017 NEW, BEENA Alejo VIDEO TECHNICIAN-C Ot E11.29 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 03/31/2017 NEW, BEENA Alejo VIDEO TECHNICIAN-C Ot E46 UNSPECIFIED PROTEIN-CALORIE MALNUTRITION 03/31/2017 NEW, BEENA Alejo VIDEO TECHNICIAN-C Ot E55.9 VITAMIN D DEFICIENCY, UNSPECIFIED 03/31/2017 NEW, BEENA Alejo VIDEO TECHNICIAN-C Ot E78.5 HYPERLIPIDEMIA, UNSPECIFIED 03/31/2017 NEW, BEENA Alejo VIDEO TECHNICIAN-C Ot E87.5 HYPERKALEMIA 03/31/2017 NEW, BEENA Alejo VIDEO TECHNICIAN-C Ot 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 03/31/2017 NEW, BEENA MaruSheree VIDEO TECHNICIAN-C Ot E46 UNSPECIFIED PROTEIN-CALORIE MALNUTRITION 03/31/2017 NEW, BEENA MaruSheree VIDEO TECHNICIAN-C Ot E55.9 VITAMIN D DEFICIENCY, UNSPECIFIED 03/31/2017 NEW, BEENA MaruSheree VIDEO TECHNICIAN-C Ot E78.5 HYPERLIPIDEMIA, UNSPECIFIED 03/31/2017 NEW, BEENA MaruSheree VIDEO TECHNICIAN-C Ot E87.5 HYPERKALEMIA 03/31/2017 NEW, BEENA MaruSheree VIDEO TECHNICIAN-C Ot 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, W S 03/31/2017 NEW, BEENA MaruSheree VIDEO TECHNICIAN-C Ot I25.10 ATHSCL HEART DISEASE OF [place] CORONARY 03/31/2017 NEW, BEENA MaruSheree VIDEO TECHNICIAN-C Ot M48.02 SPINAL STENOSIS, CERVICAL REGION 03/31/2017 NEW, BEENA MaruSheree VIDEO TECHNICIAN-C Ot 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 03/31/2017 NEW, BEENA MaruSheree VIDEO TECHNICIAN-C Ot R80.9 PROTEINURIA, UNSPECIFIED 03/31/2017 NEW, BEENA GSheree 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 03/31/2017 NEW, BEENA MaruSheree VIDEO TECHNICIAN-C Ot E46 UNSPECIFIED PROTEIN-CALORIE MALNUTRITION 03/31/2017 NEW, BEENA Alejo VIDEO TECHNICIAN-C Ot E55.9 VITAMIN D DEFICIENCY, UNSPECIFIED 03/31/2017 NEW, BEENA Alejo NP-C Ot E78.5 HYPERLIPIDEMIA, UNSPECIFIED 03/31/2017 NEW, BEENA Alejo VIDEO TECHNICIAN-C Ot E87.5 HYPERKALEMIA 03/31/2017 NEW, BEENA Alejo NP-C Ot 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 VIDEO TECHNICIAN-C Ot 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 03/31/2017 NEW, BEENA Alejo VIDEO TECHNICIAN-C Ot R80.9 PROTEINURIA, UNSPECIFIED 03/31/2017 NEW, BEENA Alejo VIDEO TECHNICIAN-C Ot D63.1 ANEMIA IN CHRONIC KIDNEY DISEASE 03/31/2017 NEW, BEENA Alejo VIDEO TECHNICIAN-C Ot D72.819 DECREASED WHITE BLOOD CELL COUNT, UNSPEC 03/31/2017 NEW, BEENA Alejo NP-C Ot E03.9 HYPOTHYROIDISM, UNSPECIFIED 03/31/2017 NEW, BEENA Alejo VIDEO TECHNICIAN-C Ot E11.29 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 03/31/2017 NEW, BEENA GSheree LARSON-C Ot E46 UNSPECIFIED PROTEIN-CALORIE MALNUTRITION 03/31/2017 NEW, BEENA Alejo VIDEO TECHNICIAN-C Ot E55.9 VITAMIN D DEFICIENCY, UNSPECIFIED 03/31/2017 NEW, BEENA Alejo VIDEO TECHNICIAN-C Ot E78.5 HYPERLIPIDEMIA, UNSPECIFIED 03/31/2017 NEW, BEENA MahoneySheree VIDEO TECHNICIAN-C Ot E87.5 HYPERKALEMIA 03/31/2017 NEW, BEENA Alejo VIDEO TECHNICIAN-C Ot 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 VIDEO TECHNICIAN-C Ot N18.4 CHRONIC KIDNEY DISEASE, STAGE 4 (SEVERE) 03/31/2017 NEW, BEENA G. VIDEO TECHNICIAN-C Ot 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 03/31/2017 NEW, BEENA G. 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 04/01/2017 NEW, BEENA GSheree VIDEO TECHNICIAN-C Ot E46 UNSPECIFIED PROTEIN-CALORIE MALNUTRITION 04/01/2017 NEW, BEENA GSheree VIDEO TECHNICIAN-C Ot E55.9 VITAMIN D DEFICIENCY, UNSPECIFIED 04/01/2017 NEW, BEENA MaruSheree VIDEO TECHNICIAN-C Ot E78.5 HYPERLIPIDEMIA, UNSPECIFIED 04/01/2017 NEW, BEENA GSheree VIDEO TECHNICIAN-C Ot E87.5 HYPERKALEMIA 04/01/2017 NEW, BEENA MaruSheree VIDEO TECHNICIAN-C Ot 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, W S 04/01/2017 NEW, BEENA MaruSheree VIDEO TECHNICIAN-C Ot I25.10 ATHSCL HEART DISEASE OF [place] CORONARY 04/01/2017 NEW, BEENA MaruSheree VIDEO TECHNICIAN-C Ot M48.02 SPINAL STENOSIS, CERVICAL REGION 04/01/2017 NEW, BEENA MaruSheree VIDEO TECHNICIAN-C Ot N18.4 CHRONIC KIDNEY DISEASE, STAGE 4 (SEVERE) 04/01/2017 NEW, BEENA MaruSheree VIDEO TECHNICIAN-C Ot 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 04/01/2017 NEW, BEENA MaruSheree VIDEO TECHNICIAN-C Ot R80.9 PROTEINURIA, UNSPECIFIED 04/23/2017 NEW, BEENA MahoneySheree VIDEO TECHNICIAN-C Ot D63.1 ANEMIA IN CHRONIC KIDNEY DISEASE 04/23/2017 NEW, BEENA Alejo VIDEO TECHNICIAN-C Ot D72.819 DECREASED WHITE BLOOD CELL COUNT, UNSPEC 04/23/2017 NEW, BEENA G. 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 VIDEO TECHNICIAN-C Ot N18.4 CHRONIC KIDNEY DISEASE, STAGE 4 (SEVERE) 04/23/2017 NEW, BEENA GSheree VIDEO TECHNICIAN-C Ot 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 04/23/2017 NEW, BEENA GSheree VIDEO TECHNICIAN-C Ot R80.9 PROTEINURIA, UNSPECIFIED 01/06/2018 NEW, BEENA GSheree VIDEO TECHNICIAN-C Ot D63.1 ANEMIA IN CHRONIC KIDNEY DISEASE 01/06/2018 NEW, BEENA MahoneySheree VIDEO TECHNICIAN-C Ot D72.819 DECREASED WHITE BLOOD CELL COUNT, UNSPEC 01/06/2018 NEW, BEENA MaruSheree VIDEO TECHNICIAN-C Ot E03.9 HYPOTHYROIDISM, UNSPECIFIED 01/06/2018 NEW, BEENA MaruSheree VIDEO TECHNICIAN-C Ot E11.29 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 01/06/2018 NEW, BEENA MaruSheree VIDEO TECHNICIAN-C Ot E46 UNSPECIFIED PROTEIN-CALORIE MALNUTRITION 01/06/2018 NEW, BEENA MaruSheree VIDEO TECHNICIAN-C Ot E55.9 VITAMIN D DEFICIENCY, UNSPECIFIED 01/06/2018 NEW, BEENA MahoneySheree VIDEO TECHNICIAN-C Ot E78.5 HYPERLIPIDEMIA, UNSPECIFIED 01/06/2018 NEW, BEENA MahoneySheree VIDEO TECHNICIAN-C Ot E87.5 HYPERKALEMIA 01/06/2018 JAGJIT BEENA MahoneySheree VIDEO TECHNICIAN-C Ot 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, W S 01/06/2018 JAGJIT BEENA MahoneySheree VIDEO TECHNICIAN-C Ot I25.10 ATHSCL HEART DISEASE OF [place] CORONARY 01/06/2018 JAGJIT BEENA MahoneySheree VIDEO TECHNICIAN-C Ot M48.02 SPINAL STENOSIS, CERVICAL REGION 01/06/2018 NEW BEENA MahoneySheree VIDEO TECHNICIAN-C Ot N18.4 CHRONIC KIDNEY DISEASE, STAGE 4 (SEVERE) 01/06/2018 NEW BEENA MahoneySheree VIDEO TECHNICIAN-C Ot 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 01/06/2018 JAGJIT BEENA MahoneySheree VIDEO TECHNICIAN-C Ot R80.9 PROTEINURIA, UNSPECIFIED 01/06/2018 JAGJIT BEENA MahoneySheree VIDEO TECHNICIAN-C Ot R82.90 UNSPECIFIED ABNORMAL FINDINGS IN URINE 03/09/2018 Caroline Condonissa Dayan W 250.00 DIABETES MELLITUS WITHOUT MENTION OF COMPLICATION, TYPE II OR UNSPECIFIED TYPE, NOT STATED UNCONTROLLED 03/09/2018 Mica Condon W 272.4 OTHER AND UNSPECIFIED HYPERLIPIDEMIA 03/09/2018 Mica Condon W 410.71 03/09/2018 Taurus Mica Dayan W 414.01 CORONARY ATHEROSCLEROSIS OF [place] CORONARY ARTERY 03/09/2018 Taurus Mica Hanley W 729.89 OTHER MUSCULOSKELETAL SYMPTOMS REFERABLE TO LIMBS 03/09/2018 Mica Condon W 780.97 ALTERED MENTAL STATUS 03/09/2018 Mica Condon W E11.9 TYPE 2 DIABETES MELLITUS WITHOUT COMPLICATIONS 03/09/2018 Mica Condon W E78.5 HYPERLIPIDEMIA, UNSPECIFIED 03/09/2018 Mica Condon W I21.4 NON-ST ELEVATION (NSTEMI) MYOCARDIAL INFARCTION 03/09/2018 Mica Condon W I25.10 ATHSCL HEART DISEASE OF [place] CORONARY ARTERY W/O ANG PCTRS 03/09/2018 Mica Condon W R29.898 OTH SYMPTOMS AND SIGNS INVOLVING THE MUSCULOSKELETAL SYSTEM 03/09/2018 Mica Condon W R41.82 ALTERED MENTAL STATUS, UNSPECIFIED 03/13/2018 TRAN DO, ERVIN Ot E03.9 HYPOTHYROIDISM, UNSPECIFIED 03/13/2018 TRAN DO, ERVIN Ot E11.9 TYPE 2 DIABETES MELLITUS WITHOUT COMPLIC 03/13/2018 TRAN DO, ERVIN Ot E78.00 PURE HYPERCHOLESTEROLEMIA, UNSPECIFIED 03/13/2018 TRAN DO, ERVIN Ot E78.5 HYPERLIPIDEMIA, UNSPECIFIED 03/13/2018 TRAN DO, ERVIN Ot E86.1 HYPOVOLEMIA 03/13/2018 TRAN DO, ERVIN Ot I11.0 HYPERTENSIVE HEART DISEASE WITH HEART FA 03/13/2018 TRAN DO, ERVIN Ot I25.10 ATHSCL HEART DISEASE OF [place] CORONARY 03/13/2018 TRAN DO, ERVIN Ot I25.2 OLD MYOCARDIAL INFARCTION 03/13/2018 TRAN DO, ERVIN Ot I25.5 ISCHEMIC CARDIOMYOPATHY 03/13/2018 TRAN DO, ERVIN Ot I50.22 CHRONIC SYSTOLIC (CONGESTIVE) HEART FAIL 03/13/2018 TRAN DO, ERVIN Ot I69.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 CEREBRAL INFARCTION 03/13/2018 TRAN DO, ERVIN Ot I69.351 HEMIPLGA FOLLOWING CEREBRAL INFRC AFF RI 03/13/2018 TRAN DO, ERVIN Ot I69.391 DYSPHAGIA FOLLOWING CEREBRAL INFARCTION 03/13/2018 TRAN DO, ERVIN Ot K59.09 OTHER CONSTIPATION 03/13/2018 TRAN DO, ERVIN Ot N18.9 CHRONIC KIDNEY DISEASE, UNSPECIFIED 03/13/2018 TRAN DO, ERVIN Ot R13.12 DYSPHAGIA, OROPHARYNGEAL PHASE 03/13/2018 TRAN DO, ERVIN Ot R55 SYNCOPE AND COLLAPSE 03/13/2018 TRAN DO ERVIN Ot Z91.19 PATIENT'S NONCOMPLIANCE W [facility] 03/13/2018 TRAN DO, ERVIN Ot Z95.0 PRESENCE OF CARDIAC PACEMAKER 03/20/2018 TRAN DO ERVIN Ot E03.9 HYPOTHYROIDISM, UNSPECIFIED 03/20/2018 TRAN DO, ERVIN Ot E11.65 TYPE 2 DIABETES MELLITUS WITH HYPERGLYCE 03/20/2018 TRAN DO, ERVIN Ot E78.2 MIXED HYPERLIPIDEMIA 03/20/2018 TRAN DO, ERVIN Ot E86.1 HYPOVOLEMIA 03/20/2018 TRAN DO ERVIN Ot F32.9 MAJOR DEPRESSIVE DISORDER, SINGLE EPISOD 03/20/2018 ERVIN TRAN DO Ot I13.0 HYP HRT CHR KDNY DIS W HRT FAIL AND ST 03/20/2018 ERVIN TRAN DO Ot I21.4 NON-ST ELEVATION (NSTEMI) MYOCARDIAL INF 03/20/2018 KANDI TRAN DOI Ot I25.10 ATHSCL HEART DISEASE OF [place] CORONARY 03/20/2018 ERVIN TRAN DO Ot I25.5 ISCHEMIC CARDIOMYOPATHY 03/20/2018 ERVIN TRAN DO Ot I50.22 CHRONIC SYSTOLIC (CONGESTIVE) HEART FAIL 03/20/2018 KANDI TRAN DOI Ot 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 03/20/2018 KANDI TRAN DOI Ot I69.318 OTHER SYMPTOMS AND SIGNS W COGN FNCTNS F 03/20/2018 ERVIN TRAN DO Ot I69.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 CEREBRAL INFARCTION 03/20/2018 KANDI TRAN DOI Ot I69.351 HEMIPLGA FOLLOWING CEREBRAL INFRC AFF RI 03/20/2018 ERVIN TRAN DO Ot K59.09 OTHER CONSTIPATION 03/20/2018 KANDI TRAN DOI Ot M19.90 UNSPECIFIED OSTEOARTHRITIS, UNSPECIFIED 03/20/2018 KANDI TRAN DOI Ot N18.9 CHRONIC KIDNEY DISEASE, UNSPECIFIED 03/20/2018 ERVIN TRAN DO Ot R41.0 DISORIENTATION, UNSPECIFIED 03/20/2018 KANDI TRAN DOI Ot R55 SYNCOPE AND COLLAPSE 03/20/2018 KANDI TRAN DOI Ot Z79.84 SENIOR LIVING (CURRENT) USE OF ORAL HYPOGLYC 03/20/2018 ERVIN TARN DO Ot Z91.19 PATIENT'S NONCOMPLIANCE W [facility] 03/20/2018 ERVNI TRAN DO Ot Z95.0 PRESENCE OF CARDIAC PACEMAKER 03/20/2018 ERVIN TRAN DO Ot Z95.1 PRESENCE OF AORTOCORONARY BYPASS GRAFT 04/29/2018 BEENA DANIELSON NP-C Ot 244.9 HYPOTHYROIDISM NOS 04/29/2018 BEENA DANIELSON NP-C Ot 250.40 DIAB W RENAL MANIFEST, TYPE II OR UNSPEC 04/29/2018 BEENA DANIELSON NP-C Ot 263.9 PROTEIN-ANA MALNUTR NOS 04/29/2018 BEENA DANIELSON NP-C Ot 268.9 VITAMIN D DEFICIENCY NOS 04/29/2018 NEW, BEENA Alejo VIDEO TECHNICIAN-C Ot 272.4 HYPERLIPIDEMIA NEC/NOS 04/29/2018 NEW, BEENA Alejo VIDEO TECHNICIAN-C Ot 276.7 HYPERPOTASSEMIA 04/29/2018 NEW, BEENA Alejo VIDEO TECHNICIAN-C Ot 285.21 ANEMIA IN CHRONIC KIDNEY DISEASE 04/29/2018 NEW, BEENA Alejo VIDEO TECHNICIAN-C Ot 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, BENIGN, W/O HRT FA 04/29/2018 NEW, BEENA Alejo VIDEO TECHNICIAN-C Ot 414.00 CORON ATHEROSCLER NOS TYPE VESSEL, NATIV 04/29/2018 NEW, BEENA Alejo VIDEO TECHNICIAN-C Ot 585.3 CHRONIC KIDNEY DISEASE, STAGE III (MODER 04/29/2018 NEW, BEENA Alejo VIDEO TECHNICIAN-C Ot 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 04/29/2018 NEW, BEENA Alejo VIDEO TECHNICIAN-C Ot 723.0 CERVICAL SPINAL STENOSIS 04/29/2018 NEW, BEENA Alejo VIDEO TECHNICIAN-C Ot 791.0 PROTEINURIA 04/29/2018 NEW, BEENA Alejo VIDEO TECHNICIAN-C Ot 796.4 ABN CLINICAL FINDING NEC 04/29/2018 NEW, BEENA Alejo VIDEO TECHNICIAN-C Ot D63.1 ANEMIA IN CHRONIC KIDNEY DISEASE 04/29/2018 NEW, BEENA Alejo VIDEO TECHNICIAN-C Ot D72.819 DECREASED WHITE BLOOD CELL COUNT, UNSPEC 04/29/2018 NEW, BEENA Alejo VIDEO TECHNICIAN-C Ot E03.9 HYPOTHYROIDISM, UNSPECIFIED 04/29/2018 NEW, BEENA Alejo VIDEO TECHNICIAN-C Ot E11.29 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 04/29/2018 NEW, BEENA Alejo VIDEO TECHNICIAN-C Ot E46 UNSPECIFIED PROTEIN-[place] MALNUTRITION 04/29/2018 NEW, BEENA Alejo VIDEO TECHNICIAN-C Ot E55.9 VITAMIN D DEFICIENCY, UNSPECIFIED 04/29/2018 NEW, BEENA Alejo VIDEO TECHNICIAN-C Ot E78.5 HYPERLIPIDEMIA, UNSPECIFIED 04/29/2018 NEW, BEENA GSheree VIDEO TECHNICIAN-C Ot E87.5 HYPERKALEMIA 04/29/2018 NEW, BEENA Alejo VIDEO TECHNICIAN-C Ot 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, W S 04/29/2018 NEW, BEENA Alejo VIDEO TECHNICIAN-C Ot I25.10 ATHSCL HEART DISEASE OF [place] CORONARY 04/29/2018 NEW, BEENA MahoneySheree VIDEO TECHNICIAN-C Ot M48.02 SPINAL STENOSIS, CERVICAL REGION 04/29/2018 NEW, BEENA MaruSheree VIDEO TECHNICIAN-C Ot N18.4 CHRONIC KIDNEY DISEASE, STAGE 4 (SEVERE) 04/29/2018 NEW, BEENA MahoneySheree VIDEO TECHNICIAN-C Ot R80.9 PROTEINURIA, UNSPECIFIED 04/29/2018 NEW, BEENA MahoneySheree VIDEO TECHNICIAN-C Ot D63.1 ANEMIA IN CHRONIC KIDNEY DISEASE 04/29/2018 NEW, BEENA MahoneySheree VIDEO TECHNICIAN-C Ot D72.819 DECREASED WHITE BLOOD CELL COUNT, UNSPEC 04/29/2018 NEW, BEENA GSheree VIDEO TECHNICIAN-C Ot E03.9 HYPOTHYROIDISM, UNSPECIFIED 04/29/2018 NEW, BEENA MaruSheree VIDEO TECHNICIAN-C Ot 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 04/29/2018 NEW, BEENA MaruSheree VIDEO TECHNICIAN-C Ot E46 UNSPECIFIED PROTEIN-[place] MALNUTRITION 04/29/2018 NEW, BEENA MaruSheree VIDEO TECHNICIAN-C Ot E55.9 VITAMIN D DEFICIENCY, UNSPECIFIED 04/29/2018 NEW, BEENA MaruSheree VIDEO TECHNICIAN-C Ot E78.5 HYPERLIPIDEMIA, UNSPECIFIED 04/29/2018 NEW, BEENA GSheree VIDEO TECHNICIAN-C Ot E87.5 HYPERKALEMIA 04/29/2018 NEW, BEENA MaruSheree VIDEO TECHNICIAN-C Ot 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, W S 04/29/2018 NEW, BEENA MaruSheree VIDEO TECHNICIAN-C Ot I25.10 ATHSCL HEART DISEASE OF [place] CORONARY 04/29/2018 NEW, BEENA MaruSheree VIDEO TECHNICIAN-C Ot M48.02 SPINAL STENOSIS, CERVICAL REGION 04/29/2018 NEW, BEENA MaruSheree VIDEO TECHNICIAN-C Ot 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 04/29/2018 NEW, BEENA MaruSheree VIDEO TECHNICIAN-C Ot R80.9 PROTEINURIA, UNSPECIFIED 04/29/2018 NEW, BEENA MaruSheree VIDEO TECHNICIAN-C Ot D63.1 ANEMIA IN CHRONIC KIDNEY DISEASE 04/29/2018 NEW, BEENA GSheree VIDEO TECHNICIAN-C Ot D72.819 DECREASED WHITE BLOOD CELL COUNT, UNSPEC 04/29/2018 NEW, BEENA MaruSheree VIDEO TECHNICIAN-C Ot E03.9 HYPOTHYROIDISM, UNSPECIFIED 04/29/2018 NEW, BEENA MaruSheree VIDEO TECHNICIAN-C Ot 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 04/29/2018 NEW, BEENA MaruSheree VIDEO TECHNICIAN-C Ot E46 UNSPECIFIED PROTEIN-CALORIE MALNUTRITION 04/29/2018 NEW, BEENA Alejo VIDEO TECHNICIAN-C Ot E55.9 VITAMIN D DEFICIENCY, UNSPECIFIED 04/29/2018 NEW, BEENA GSheree VIDEO TECHNICIAN-C Ot E78.5 HYPERLIPIDEMIA, UNSPECIFIED 04/29/2018 NEW, BEENA GSheree VIDEO TECHNICIAN-C Ot E87.5 HYPERKALEMIA 04/29/2018 NEW, BEENA GSheree VIDEO TECHNICIAN-C Ot 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, W S 04/29/2018 NEW, BEENA MaruSheree VIDEO TECHNICIAN-C Ot I25.10 ATHSCL HEART DISEASE OF [place] CORONARY 04/29/2018 NEW, BEENA Alejo VIDEO TECHNICIAN-C Ot M48.02 SPINAL STENOSIS, CERVICAL REGION 04/29/2018 NEW, BEENA MaruSheree VIDEO TECHNICIAN-C Ot N18.4 CHRONIC KIDNEY DISEASE, STAGE 4 (SEVERE) 04/29/2018 NEW, BEENA Alejo VIDEO TECHNICIAN-C Ot 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 04/29/2018 NEW, BEENA MaruSheree VIDEO TECHNICIAN-C Ot R80.9 PROTEINURIA, UNSPECIFIED 04/29/2018 NEW, BEENA MaruSheree VIDEO TECHNICIAN-C Ot D63.1 ANEMIA IN CHRONIC KIDNEY DISEASE 04/29/2018 NEW, BEENA MaruSheree VIDEO TECHNICIAN-C Ot D72.819 DECREASED WHITE BLOOD CELL COUNT, UNSPEC 04/29/2018 NEW, BEENA MaruSheree VIDEO TECHNICIAN-C Ot E03.9 HYPOTHYROIDISM, UNSPECIFIED 04/29/2018 NEW, EBENA MaruSheree VIDEO TECHNICIAN-C Ot E11.29 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 04/29/2018 NEW, BEENA MaruSheree VIDEO TECHNICIAN-C Ot E46 UNSPECIFIED PROTEIN-CALORIE MALNUTRITION 04/29/2018 NEW, BEENA MaruSheree VIDEO TECHNICIAN-C Ot E55.9 VITAMIN D DEFICIENCY, UNSPECIFIED 04/29/2018 NEW, BEENA Alejo VIDEO TECHNICIAN-C Ot E78.5 HYPERLIPIDEMIA, UNSPECIFIED 04/29/2018 NEW, BEENA MaruSheree VIDEO TECHNICIAN-C Ot E87.5 HYPERKALEMIA 04/29/2018 NEW, BEENA MaruSheree VIDEO TECHNICIAN-C Ot 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, W S 04/29/2018 NEW, BEENA MaruhSeree VIDEO TECHNICIAN-C Ot I25.10 ATHSCL HEART DISEASE OF [place] CORONARY 04/29/2018 NEW, BEENA MahoneySheree VIDEO TECHNICIAN-C Ot M48.02 SPINAL STENOSIS, CERVICAL REGION 04/29/2018 NEW, BEENA MahoneySheree VIDEO TECHNICIAN-C Ot N18.4 CHRONIC KIDNEY DISEASE, STAGE 4 (SEVERE) 04/29/2018 NEW, BEENA Alejo VIDEO TECHNICIAN-C Ot 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 04/29/2018 NEW, BEENA MaruSheree VIDEO TECHNICIAN-C Ot R80.9 PROTEINURIA, UNSPECIFIED 04/29/2018 NEW, BEENA MaruSheree VIDEO TECHNICIAN-C Ot D63.1 ANEMIA IN CHRONIC KIDNEY DISEASE 04/29/2018 NEW, BEENA GSheree VIDEO TECHNICIAN-C Ot D72.819 DECREASED WHITE BLOOD CELL COUNT, UNSPEC 04/29/2018 NEW, BEENA MaruSheree VIDEO TECHNICIAN-C Ot E03.9 HYPOTHYROIDISM, UNSPECIFIED 04/29/2018 NEW, BEENA MaruSheree VIDEO TECHNICIAN-C Ot 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 04/29/2018 NEW, BEENA MaruSheree VIDEO TECHNICIAN-C Ot E46 UNSPECIFIED PROTEIN-CALORIE MALNUTRITION 04/29/2018 NEW, BEENA MaruSheree VIDEO TECHNICIAN-C Ot E55.9 VITAMIN D DEFICIENCY, UNSPECIFIED 04/29/2018 NEW, BEENA MaruSheree VIDEO TECHNICIAN-C Ot E78.5 HYPERLIPIDEMIA, UNSPECIFIED 04/29/2018 NEW, BEENA GSheree VIDEO TECHNICIAN-C Ot E87.5 HYPERKALEMIA 04/29/2018 NEW, BEENA GSheree VIDEO TECHNICIAN-C Ot 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, W S 04/29/2018 NEW, BEENA MaruSheree VIDEO TECHNICIAN-C Ot I25.10 ATHSCL HEART DISEASE OF [place] CORONARY 04/29/2018 NEW, BEENA GSheree VIDEO TECHNICIAN-C Ot M48.02 SPINAL STENOSIS, CERVICAL REGION 04/29/2018 NEW, BEENA GSheree VIDEO TECHNICIAN-C Ot N18.4 CHRONIC KIDNEY DISEASE, STAGE 4 (SEVERE) 04/29/2018 NEW, BEENA MaruSheree VIDEO TECHNICIAN-C Ot 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 04/29/2018 NEW, BEENA GSheree VIDEO TECHNICIAN-C Ot R80.9 PROTEINURIA, UNSPECIFIED 04/29/2018 NEW, BEENA MaruSheree VIDEO TECHNICIAN-C Ot D63.1 ANEMIA IN CHRONIC KIDNEY DISEASE 04/29/2018 NEW, BEENA MaruSheree VIDEO TECHNICIAN-C Ot D72.819 DECREASED WHITE BLOOD CELL COUNT, UNSPEC 04/29/2018 NEW, BEENA Alejo VIDEO TECHNICIAN-C Ot E03.9 HYPOTHYROIDISM, UNSPECIFIED 04/29/2018 NEW, BEENA Alejo VIDEO TECHNICIAN-C Ot E11.29 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 04/29/2018 NEW, BEENA Alejo VIDEO TECHNICIAN-C Ot E46 UNSPECIFIED PROTEIN-[place] MALNUTRITION 04/29/2018 NEW, BEENA Alejo VIDEO TECHNICIAN-C Ot E55.9 VITAMIN D DEFICIENCY, UNSPECIFIED 04/29/2018 NEW, BEENA Alejo VIDEO TECHNICIAN-C Ot E78.5 HYPERLIPIDEMIA, UNSPECIFIED 04/29/2018 NEW, BEENA Alejo VIDEO TECHNICIAN-C Ot E87.5 HYPERKALEMIA 04/29/2018 NEW, BEENA Alejo VIDEO TECHNICIAN-C Ot 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, W S 04/29/2018 NEW, BEENA Alejo VIDEO TECHNICIAN-C Ot I25.10 ATHSCL HEART DISEASE OF [place] CORONARY 04/29/2018 NEW, BEENA Alejo VIDEO TECHNICIAN-C Ot M48.02 SPINAL STENOSIS, CERVICAL REGION 04/29/2018 NEW, BEENA Alejo VIDEO TECHNICIAN-C Ot N18.4 CHRONIC KIDNEY DISEASE, STAGE 4 (SEVERE) 04/29/2018 NEW, BEENA Alejo VIDEO TECHNICIAN-C Ot 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 04/29/2018 NEW, BEENA Alejo VIDEO TECHNICIAN-C Ot R80.9 PROTEINURIA, UNSPECIFIED 04/29/2018 NEW, BEENA Alejo VIDEO TECHNICIAN-C Ot R82.90 UNSPECIFIED ABNORMAL FINDINGS IN URINE 04/30/2018 JAC MABRY MD Ot E03.9 HYPOTHYROIDISM, UNSPECIFIED 04/30/2018 JAC MABRY MD Ot E78.2 MIXED HYPERLIPIDEMIA 04/30/2018 JAC MABRY MD Ot I25.10 ATHSCL HEART DISEASE OF [place] CORONARY 04/30/2018 JAC MABRY MD Ot I50.9 HEART FAILURE, UNSPECIFIED 04/30/2018 JAC MABRY MD Ot R55 SYNCOPE AND COLLAPSE 05/05/2018 JAC AMBRY MD Ot E03.9 HYPOTHYROIDISM, UNSPECIFIED 05/05/2018 JAC MABRY MD Ot E78.2 MIXED HYPERLIPIDEMIA 05/05/2018 JAC MABRY MD Ot I25.10 ATHSCL HEART DISEASE OF [place] CORONARY 05/05/2018 JAC MABRY MD, Ot I50.9 HEART FAILURE, UNSPECIFIED 05/05/2018 JAC MABRY MD, Ot R55 SYNCOPE AND COLLAPSE 05/22/2018 JAC MABRY MD, Ot E03.9 HYPOTHYROIDISM, UNSPECIFIED 05/22/2018 JAC MABRY MD, Ot E78.2 MIXED HYPERLIPIDEMIA 05/22/2018 JAC MABRY MD, Ot I25.10 ATHSCL HEART DISEASE OF [place] CORONARY 05/22/2018 JAC MABRY MD, Ot I50.9 HEART FAILURE, UNSPECIFIED 05/22/2018 JAC MABRY MD, Ot R55 SYNCOPE AND COLLAPSE Procedures There is no data. Results Test [...] culture - 03/31/17 14:20 Bacterial urine culture [id number] NRG COLONY COUNT 10,000/ML - 100,000/ML NRG [...] measurement by glucometer (mass/volume) 124 mg/dL 70-110 Capillary blood glucose measurement by glucometer (mass/volume) - 03/14/18 16: 35 Capillary blood glucose measurement by glucometer (mass/volume) 253 mg/dL 70-110 Capillary blood glucose measurement by glucometer (mass/volume) - 03/14/18 20: 43 Capillary blood glucose measurement by glucometer (mass/volume) 161 mg/dL 70-110 Capillary blood glucose measurement by glucometer (mass/volume) - 03/15/18 05: 06 Capillary blood glucose measurement by glucometer (mass/volume) 87 mg/dL 70-110 Capillary blood glucose measurement by glucometer (mass/volume) - 03/15/18 11: 27 Capillary blood glucose measurement by glucometer (mass/volume) 174 mg/dL 70-110 Capillary blood glucose measurement by glucometer (mass/volume) - 03/15/18 16: 06 Capillary blood glucose measurement by glucometer (mass/volume) 142 mg/dL 70-110 Capillary blood glucose measurement by glucometer (mass/volume) - 03/15/18 20: 38 Capillary blood glucose measurement by glucometer (mass/volume) 244 mg/dL 70-110 Capillary blood glucose measurement by glucometer (mass/volume) - 03/16/18 04: 36 Capillary blood glucose measurement by glucometer (mass/volume) 96 mg/dL 70-110 Capillary blood glucose measurement by glucometer (mass/volume) - 03/16/18 11: 53 Capillary blood glucose measurement by glucometer (mass/volume) 118 mg/dL 70-110 Capillary blood glucose measurement by glucometer (mass/volume) - 03/16/18 16: 39 Capillary blood glucose measurement by glucometer (mass/volume) 205 mg/dL 70-110 Capillary blood glucose measurement by glucometer (mass/volume) - 03/16/18 21: 00 Capillary blood glucose measurement by glucometer (mass/volume) 133 mg/dL 70-110 Capillary blood glucose measurement by glucometer (mass/volume) - 03/17/18 04: 59 Capillary blood glucose measurement by glucometer (mass/volume) 113 mg/dL 70-110 Capillary blood glucose measurement by glucometer (mass/volume) - 03/17/18 11: 06 Capillary blood glucose measurement by glucometer (mass/volume) 136 mg/dL 70-110 Capillary blood glucose measurement by glucometer (mass/volume) - 03/17/18 16: 03 Capillary blood glucose measurement by glucometer (mass/volume) 214 mg/dL 70-110 Capillary blood glucose measurement by glucometer (mass/volume) - 03/17/18 20: 37 Capillary blood glucose measurement by glucometer (mass/volume) 164 mg/dL 70-110 Capillary blood glucose measurement by glucometer (mass/volume) - 03/18/18 05: 46 Capillary blood glucose measurement by glucometer (mass/volume) 99 mg/dL 70-110 Capillary blood glucose measurement by glucometer (mass/volume) - 03/18/18 11: 07 Capillary blood glucose measurement by glucometer (mass/volume) 149 mg/dL 70-110 Capillary blood glucose measurement by glucometer (mass/volume) - 03/18/18 16: 28 Capillary blood glucose measurement by glucometer (mass/volume) 131 mg/dL 70-110 Capillary blood glucose measurement by glucometer (mass/volume) - 03/18/18 20: 20 Capillary blood glucose measurement by glucometer (mass/volume) 172 mg/dL 70-110 Capillary blood glucose measurement by glucometer (mass/volume) - 03/19/18 05: 27 Capillary blood glucose measurement by glucometer (mass/volume) 130 mg/dL 70-110 Capillary blood glucose measurement by glucometer (mass/volume) - 03/19/18 11: 21 Capillary blood glucose measurement by glucometer (mass/volume) 118 mg/dL 70-110 Capillary blood glucose measurement by glucometer (mass/volume) - 03/19/18 16: 46 Capillary blood glucose measurement by glucometer (mass/volume) 182 mg/dL 70-110 Capillary blood glucose measurement by glucometer (mass/volume) - 03/19/18 21: 06 Capillary blood glucose measurement by glucometer (mass/volume) 117 mg/dL 70-110 Capillary blood glucose measurement by glucometer (mass/volume) - 03/20/18 04: 58 Capillary blood glucose measurement by glucometer (mass/volume) 85 mg/dL 70-110 Encounters ACCT No. Visit Date/Time Discharge Status Pt. Type Provider Facility Loc./Unit Complaint [id number] 04/29/2018 07:36:00 04/29/2018 23:59:59 CLS Outpatient CLOTILDE MILLAN, JAC Wolfe [facility] CARD CHF,CVA,CAD, HYPOTHYROIDISM [id number] 03/11/2018 17:00:00 03/20/2018 10:00:00 DIS Inpatient TRAN DO ERVIN [facility] IRF CVA [id number] 03/12/2018 11:43:00 03/13/2018 09:33:00 DIS Inpatient TRAN DO, ERVIN [facility] ICU SYNCOPE [id number] 12/16/2017 14:37:00 12/16/2017 23:59:59 CLS Outpatient BEENA DANIELSON NP-C [facility] LAB N18.4,E87.5 [id number] 03/31/2017 14:03:00 03/31/2017 23:59:59 CLS Outpatient BEENA DANIELSON VIDEO TECHNICIAN-C [facility] LAB N18.4,E87.5 [id number] 08/16/2016 09:49:00 08/16/2016 23:59:59 CLS Outpatient BEENA DANIELSON NP-C [facility] LAB N18.4 [id number] 06/26/2016 00:13:00 06/26/2016 23:59:59 CLS Preadmit BEENA DANIELSON VIDEO TECHNICIAN-C [facility] SDC IRON DEFICIENCY ANEMIA [id number] 04/05/2016 11:04:00 06/25/2016 00:01:00 DIS Outpatient BEENA DANIELSON VIDEO TECHNICIAN-C [facility] IRON DEFICIENCY ANEMIA [id number] 12/25/2015 00:09:00 12/25/2015 23:59:59 CLS Preadmit BEENA DANIELSON VIDEO TECHNICIAN-C [facility] CHRONIC KIDNEY DISEASE [id number] 09/26/2015 10:00:00 12/24/2015 00:01:00 DIS Outpatient BEENA DANIELSON VIDEO TECHNICIAN-C [facility] CHRONIC KIDNEY DISEASE [id number] 09/25/2015 14:31:00 09/25/2015 23:59:59 CLS Outpatient BEENA DANIELSON VIDEO TECHNICIAN-C [facility] CHRONIC KIDNEY DISEASE, HYPERKALEMIA [id number] 05/28/2015 17:36:00 05/28/2015 19:48:00 DIS Emergency DONNIE CARLTON APRN [facility] ER SHAKINESS [id number] 03/07/2015 12:52:00 03/07/2015 23:59:59 CLS Outpatient BEENA DANIELSON VIDEO TECHNICIAN-C [facility] CHRONIC KIDNEY DISEASE [id number] 10/11/2014 09:08:00 10/11/2014 23:59:59 CLS Outpatient BEENA DANIELSON VIDEO TECHNICIAN-C [facility] CKD STAGE III, HYPERTENSIVE HEART,DM,ANEMIA IN CKD [id number] 10/12/2013 13:28:00 10/12/2013 15:54:00 DIS Emergency BEENA BRIDGES DO [facility] ER FEET/LEGS SWELLING [id number] 10/11/2014 09:04:00 Document Registration [id number] 01/30/2011 14:55:00 Document Registration [id number] 10/29/2010 05:49:00 Document Registration [id number] 10/26/2010 13:14:00 Document Registration [id number] 08/15/2010 05:38:00 Document Registration [id number] 08/10/2010 08:58:00 Document Registration [id number] 03/15/2016 13:05:00 Document Registration [id number] 2018 16:40:00 2018 23:59:59 CLS Outpatient ADLEAIDE [facility]NO[id number] 10/11/2014 09:12:04 ACT Document Registration [id number] 03/09/2018 00:42:00 03/09/2018 04:25:00 DIS Outpatient [place] [facility] [place] [id number] 03/09/2018 01:43:56 Document Registration
[2018-07-21] MEDS ORDERED: NS IV 1000 ML 1,000 ML IV SCH (15:27)
[2018-07-21 15:37] LABS: BASOPHILS % (AUTO) 0 % (0-10); EOSINOPHILS % (AUTO) 0 % (0-10); HEMATOCRIT 41 % (35-52); HEMOGLOBIN 14.1 G/DL (11.5-16.0); LYMPHOCYTES # (AUTO) 0.7 X 10^3 (1.0-4.0); LYMPHOCYTES % (AUTO) 5 % (12-44); MEAN CORPUSCULAR HEMOGLOBIN 30 PG (25-34); MEAN CORPUSCULAR HGB CONC 34 G/DL (32-36); MEAN CORPUSCULAR VOLUME 86 FL (80-99); MEAN PLATELET VOLUME 11.2 FL (7.4-10.4); MONOCYTES # (AUTO) 1.2 X 10^3 (0.0-1.0); MONOCYTES % (AUTO) 9 % (0-12); NEUTROPHILS # (AUTO) 11.2 X 10^3 (1.8-7.8); NEUTROPHILS % (AUTO) 86 % (42-75); PLATELET COUNT 120 10^3/uL (130-400); RED CELL DISTRIBUTION WIDTH 14.6 % (10.0-14.5); WHITE BLOOD COUNT 13.1 10^3/uL (4.3-11.0)
[2018-07-21 15:38] LABS: CLARITY,URINE SLIGHTLY CLOUDY; COLOR,URINE AMBER; GLUCOSE, URINE (UA) 1+ (NEGATIVE); KETONES,URINE NEGATIVE (NEGATIVE); LEUKOCYTE ESTERASE ,URINE 1+ (NEGATIVE); NITRITE,URINE NEGATIVE (NEGATIVE); PH,URINE 5 (5-9); PROTEIN,URINE 2+ (NEGATIVE); UROBILINOGEN,URINE NORMAL (NORMAL)
--- NOTE | 2018-07-21 15:41 | ED Abdominal Pain ---
General Chief Complaint: Abdominal/GI Problems Stated Complaint: ABD PAIN Source of Information: Patient, EMS Exam Limitations: Physical Impairments History of Present Illness Date Seen by Provider: July 21, 2018 Time Seen by Provider: 15:08 Initial Comments Here with report of significant abdominal pain. Apparently she's not had a bowel movement in 2 days. Patient is not answering questions very well and seemed to be related to pain. There is a report of fever at the [facility] although that is not translated here. Patient is complaining of severe abdominal pain and she is rigid throughout the abdomen. She is not able to provide significant history. She does follow commands and does answer simple questions. Timing/Duration: 12-24 Hours, Getting Worse Severity/Quality: Moderate, Severe, Aching Location: Generalized Abdomen Radiation: Back Activities at Onset: None Modifying Factors: Worsens With Movement; Improves With Resting Associated Symptoms: Back Pain; No Chest Pain; Fever/Chills; No Nausea/Vomiting , No Shortness of Air; Weakness Allergies and Home Medications Allergies Coded Allergies: NKANo Known Allergies (Unverified Allergy, Mild, 07/03/08) Home Medications Aspirin 81 Mg Tablet.dr, 81 MG PO DAILY Prescribed by: ERVIN TRAN on 03/19/18 08 Atorvastatin Calcium 40 Mg Tablet, 40 MG PO HS Prescribed by: ERVIN TRAN on 03/19/18 08 Citalopram Hydrobromide 20 Mg Tablet, 20 MG PO DAILY Prescribed by: ERVIN TRAN on 03/19/18 08 Clopidogrel Bisulfate 75 Mg Tablet, 75 MG PO DAILY Prescribed by: ERVIN TRAN on 03/19/18 08 Ezetimibe 10 Mg Tablet, 10 MG PO HS Prescribed by: ERVIN TRAN on 03/19/18 0853 Famotidine 20 Mg Tablet, 20 MG PO DAILY Prescribed by: ERVIN TRAN on 03/19/18 0853 Levothyroxine Sodium 25 Mcg Tablet, 25 MCG PO DAILY@0630 Prescribed by: ERVIN TRAN on 03/19/18 0853 Lisinopril 10 Mg Tablet, 10 MG PO DAILY Prescribed by: ERVIN TRAN on 03/19/18 0853 Metformin HCl 500 Mg Tablet, 500 MG PO DAILY@07 Prescribed by: ERVIN TRAN on 03/19/18 0853 Metoprolol Succinate 25 Mg Tab.er.24h, 50 MG PO DAILY@1800 Prescribed by: ERVIN TRAN on 03/19/1853 Tramadol HCl 50 Mg Tablet, 50 MG PO Q6H PRN for PAIN-MODERATE Prescribed by: ERVIN TRAN on 03/19/18852 Patient Home Medication List Home Medication List Reviewed: Yes Review of Systems Review of Systems Constitutional: see HPI; No chills, No fever Respiratory: No Symptoms Reported Cardiovascular: Denies Chest Pain, Denies Edema Gastrointestinal: Abdominal Pain; Denies Vomiting Genitourinary: No Symptoms Reported Other Comments Unable to complete review of systems due to clinical condition. Past Glcvwtv-Bkdjlx-Edxtwy Hx Past Med/Social Hx: Reviewed Nursing Past Med/Soc Hx Patient Social History Alcohol Use: Denies Use Recreational Drug Use: No Smoking Status: Unknown if Ever Smoked Recent Foreign Travel: No Contact w/Someone Who Travel: No Recent Hopitalizations: No Immunizations Up To Date Date of Pneumonia Vaccine: Dec 16, 2016 Date of Influenza Vaccine: Mar 11, 2018 Seasonal Allergies Seasonal Allergies: No Past Medical History Surgeries: Yes (Knee surgery bilt) Cardiac, CABG, Eye Surgery, Hysterectomy, Orthopedic Respiratory: No Currently Using CPAP: No Currently Using BIPAP: No Cardiac: Yes (STENTS 20 PACEMAKER) Coronary Artery Disease, High Cholesterol, Hypertension Neurological: Yes Stroke Reproductive Disorders: No Sexually Transmitted Disease: No Genitourinary: Yes Renal Failure Gastrointestinal: Yes Chronic Constipation Musculoskeletal: Yes (nueropathy in feet) Arthritis Endocrine: Yes Hypothyroidsim, Diabetes, Non-Insulin dep HEENT: No Cancer: No Psychosocial: Yes Depression Integumentary: No Blood Disorders: No Family Medical History Reviewed Nursing Family Hx Diabetes Physical Exam Vital Signs Vital Signs - First Documented 07/21/18 15:38 Temp 98.2 Pulse 110 Resp 20 B/P (MAP) 133/95 (108) Pulse Ox 95 Capillary Refill : Height/Weight/BMI Height: 5'0.00" Weight: 138lbs. 0.0oz. [id number]; 27.0 BMI Method: General Appearance: WD/WN, mild distress HEENT: PERRL/EOMI, pharynx normal Neck: full range of motion, supple Respiratory: lungs clear, normal breath sounds Cardiovascular: no murmur, tachycardia Peripheral Pulses: 2+ Dorsalis Pedis (R), 2+ Left Dors-Pedis (L), 2+ Radial Pulses (R), 2+ Radial Pulses (L) Gastrointestinal: abnormal bowel sounds (hypoactive), guarding, tenderness Extremities: non-tender, normal inspection, no calf tenderness Back: no vertebral tenderness, CVA tenderness (R), CVA tenderness (L) Neurologic/Psychiatric: motor weakness (global), depressed affect, other ( oriented to self and follows simple commands) Skin: normal color, warm/dry Focused Exam Lactate Level 07/21/18 15:15: Lactic Acid Level 3.97*H 07/21/18 17:19: Lactic Acid Level 3.73*H Lactic Acid Level Laboratory Tests Test 07/21/18 15:15 07/21/18 17:19 Lactic Acid Level 3.97 MMOL/L (0.50-2.00) *H 3.73 MMOL/L (0.50-2.00) *H Progress/Results/Core Measures Results/Orders Lab Results Laboratory Tests Test 07/21/18 15:15 07/21/18 17:19 Range/Units White Blood Count 13.1 H 4.3-11.0 10^3/uL Red Blood Count 4.78 4.35-5.85 10^6/uL Hemoglobin 14.1 11.5-16.0 G/DL Hematocrit 41 35-52 % Mean Corpuscular Volume 86 80-99 FL Mean Corpuscular Hemoglobin 30 25-34 PG Mean Corpuscular Hemoglobin Concent 34 32-36 G/DL Red Cell Distribution Width 14.6 H 10.0-14.5 % Platelet Count 120 L 130-400 10^3/uL Mean Platelet Volume 11.2 H 7.4-10.4 FL Neutrophils (%) (Auto) 86 H 42-75 % Lymphocytes (%) (Auto) 5 L 12-44 % Monocytes (%) (Auto) 9 0-12 % Eosinophils (%) (Auto) 0 0-10 % Basophils (%) (Auto) 0 0-10 % Neutrophils # (Auto) 11.2 H 1.8-7.8 X 10^3 Lymphocytes # (Auto) 0.7 L 1.0-4.0 X 10^3 Monocytes # (Auto) 1.2 H 0.0-1.0 X 10^3 Eosinophils # (Auto) 0.0 0.0-0.3 10^3/uL Basophils # (Auto) 0.0 0.0-0.1 10^3/uL Neutrophils % (Manual) 82 % Lymphocytes % (Manual) 4 % Monocytes % (Manual) 7 % Metamyelocytes % 2 % Band Neutrophils 5 % Polychromasia SLIGHT [place] Cells SLIGHT Crenated Cell MODERATE Prothrombin Time 14.7 12.2-14.7 SEC INR Comment 1.1 0.8-1.4 Activated Partial Thromboplast Time 29 24-35 SEC Urine Color YAW H Urine Clarity SLIGHTLY CLOUDY Urine pH 5 5-9 Urine Specific [place] 1.020 1.016-1.022 Urine Protein 2+ H NEGATIVE Urine Glucose (UA) 1+ H NEGATIVE Urine Ketones NEGATIVE NEGATIVE Urine Nitrite NEGATIVE NEGATIVE Urine Bilirubin 1+ H NEGATIVE Urine Urobilinogen NORMAL NORMAL MG/DL Urine Leukocyte Esterase 1+ H NEGATIVE Urine RBC (Auto) 2+ H NEGATIVE Urine RBC NONE /HPF Urine WBC NONE /HPF Urine Squamous Epithelial Cells RARE /HPF Urine Crystals NONE /LPF Urine Amorphous Sediment FEW KIYA URATES H /LPF Urine Bacteria TRACE /HPF Urine Casts PRESENT /LPF Urine Hyaline Casts 5-10 H /LPF Urine Mucus NEGATIVE /LPF Urine Culture Indicated NO Sodium Level 136 135-145 MMOL/L Potassium Level 4.8 3.6-5.0 MMOL/L Chloride Level 99 98-107 MMOL/L Carbon Dioxide Level 18 L 21-32 MMOL/L Anion Gap 19 H 5-14 MMOL/L Blood Urea Nitrogen 89 H 7-18 MG/DL Creatinine 4.25 H 0.60-1.30 MG/DL Estimat Glomerular Filtration Rate 10 BUN/Creatinine Ratio 21 Glucose Level 232 H 70-105 MG/DL Lactic Acid Level 3.97 *H 3.73 *H 0.50-2.00 MMOL/L Calcium Level 8.8 8.5-10.1 MG/DL Corrected Calcium 8.8 8.5-10.1 MG/DL Total Bilirubin 2.5 H 0.1-1.0 MG/DL Aspartate Amino Transf (AST/SGOT) 84 H 5-34 U/L Alanine Aminotransferase (ALT/SGPT) 61 H 0-55 U/L Alkaline Phosphatase 89 40-136 U/L Total Protein 7.3 6.4-8.2 GM/DL Albumin 4.0 3.2-4.5 GM/DL Amylase Level 1688 H 25-125 U/L Lipase 2138 H 8-78 U/L My Orders Orders - DAWNA DIETZ MD Ns Iv 1000 Ml (Sodium Chloride 0.9%) (07/21/18 15:08) Cbc With Automated Diff (07/21/18:) Comprehensive Metabolic Panel (07/21/18:) Blood Culture (07/21/18) Sputum Culture (07/21/18) Urinalysis (07/21/18) Urine Culture (07/21/18) Protime With Inr (07/21/18) Partial Thromboplastin Time (07/21/18) Chest 1 View, Ap/Pa Only (07/21/18:) Ed Iv/Invasive Line Start (07/21/18:) Ed Iv/Invasive Line Start (07/21/18) Vital Signs Adult Sepsis Patie Q15M (07/21/18:) O2 (07/21/18:) Remove Rings In Anticipation O (07/21/18:) Lactic Acid Analyzer (07/21/18:) Ns Iv 1000 Ml (Sodium Chloride 0.9%) (07/21/18:27) Manual Differential (07/21/18 15:15) Ed Iv/Invasive Line Start (07/21/18 15:46) Ns Iv 1000 Ml (Sodium Chloride 0.9%) (07/21/18 15:46) Ct Abdomen/Pelvis Wo (07/21/18 15:49) Piperacillin Sodium/Tazobactam (Zosyn Vi (07/21/18 18:00) Fentanyl Injection (Sublimaze Injection (07/21/18 18:13) Medications Given in ED Current Medications Medications Dose Ordered Sig/Anibal Route Start Time Stop Time Status Last Admin Dose Admin Piperacillin Sod/ Tazobactam Sod 4.5 gm/Sodium Chloride 100 ml @ 200 mls/hr ONCE ONCE IV 07/21/18 18:00 07/21/18 18:29 DC 07/21/18 18:08 200 MLS/HR Sodium Chloride 1,000 ml @ 0 mls/hr Q0M ONCE IV 07/21/18 15:46 07/21/18 15:47 DC 07/21/18 16:07 0 MLS/HR Vital Signs/I&O 07/21/18 15:38 Temp 98.2 Pulse 110 Resp 20 B/P (MAP) 133/95 (108) Pulse Ox 95 Progress Progress Note : Progress Note Seen and evaluated. IV, labs, normal saline 1 L bolus, UA, chest x-ray, blood cultures and lactic acid ordered. Due to severe pain and current situation, Perez catheter will be placed do to concerns of clinical condition. Monitor patient. Concerns for pancreatitis on CT. He was and lipase added. Attempted ultrasound ordered but unavailable tonight. 1730: Discussed the case with Dr. Jean. Accepts patient in consult. 174: I did discuss the case with Dr. Dimas and she accepts patient for admission. Pancreatitis. We will initiate Zosyn 4.5 mg IV times one now with pharmacy to adjust further dosing due to her acute renal failure. Patient did receive 2 L of normal saline IV and we will continue that at 125 an hour. Lactic acid was under 4 and patient is not hypotensive. I believe that she is significantly dehydrated causing the acute renal failure and we will continue hydration. Patient did receive 30 mL/kg IV bolus based on weight of 60 kg. Fentanyl 25 g IV ordered. Admit, inpatient status. Patient agrees to plan. Diagnostic Imaging Diagonstic Imaging: Xray Plain Films/CT/US/NM/MRI: chest Comments [facility] [place], [place] NAME: NADINE GARCIA [facility] REC#: [id number] PT STATUS: REG ER : 1940 PHYSICIAN: DAWNA DIETZ MD ADMIT DATE: 07/21/18/ER Draft Date of Exam:07/21/18 CHEST 1 VIEW, AP/PA ONLY INDICATION: Abdominal pain and weakness. TIME OF EXAM: 3:44 p.m. Correlation is made with prior study 03/12/2018. Changes of median sternotomy and CABG are noted. Cardiac pacemaker remains in place. There is no infiltrate or failure. No effusion or pneumothorax is seen. IMPRESSION: No acute cardiopulmonary process is detected. Dictated on workstation # [id number] Dict: 07/21/18 1557 Trans: 07/21/18 1600 [facility] [id number] Interpreted by: FLORA MIRAMONTES MD Electronically signed by: Megangonato Imaging: CT Plain Films/CT/US/NM/MRI: abdomen, pelvis Comments Draft Date of Exam:07/21/18 CT ABDOMEN/PELVIS WO PROCEDURE: CT abdomen and pelvis without contrast. TECHNIQUE: Multiple contiguous axial images were obtained through the abdomen and pelvis without the use of intravenous contrast. Auto Exposure Controls were utilized during the CT exam to meet ALARA standards for radiation dose reduction. INDICATION: Abdominal pain and vomiting. COMPARISON: No prior studies are available for comparison. FINDINGS: Imaging through the lung bases demonstrates trace right and small left pleural effusion. No significant infiltrate is seen. Study is compromised by motion artifact. No discrete liver mass is seen. There is high density in the gallbladder which may represent stones. No biliary duct dilatation is seen. There appears to be fullness throughout the pancreatic head, body and tail. There appears to be significant peripancreatic inflammatory stranding and increased density. No well-formed fluid collection is seen. No pancreatic ductal dilatation is identified. The spleen is unremarkable. No adrenal mass is seen. Kidneys are without calculi or hydronephrosis. Aorta is heavily calcified. Bowel loops are nonobstructed. Bladder is decompressed by Perez catheter. IMPRESSION: 1. Cholelithiasis. There is diffuse pancreatic enlargement with marked peripancreatic inflammatory stranding. Features are most suggestive of acute pancreatitis. No well-formed pseudocyst is seen at this time. Peripancreatic fluid does demonstrate moderate increased density which may represent a component of hemorrhage. 2. Bilateral effusions, left greater. Dictated on workstation # [id number] Dict: 07/21/18 1644 Trans: 07/21/18 1704 [id number] Interpreted by: FLORA MIRAMONTES MD Electronically signed by: Reviewed: Reviewed by Me Departure Communication (Admissions) Time/Spoke to Admitting Phy: 17:47 Time/Spoke to Consulting Phy: 17:30 Impression Primary Impression: Acute pancreatitis Qualified Codes: K85.90 - Acute pancreatitis without necrosis or infection, unspecified Additional Impressions: Cholelithiasis Qualified Codes: K80.20 - Calculus of gallbladder without cholecystitis without obstruction Acute renal failure Qualified Codes: N17.9 - Acute kidney failure, unspecified Disposition: ADMITTED INPATIENT Condition: Stable Admissions Decision to Admit Reason: Admit from ER (General) Decision to Admit/Date: July 21, 2018 Time/Decision to Admit Time: 17:30 Departure-Patient Inst. Referrals: ANNIE SALAS MD (PCP/Family) Primary Care Physician DAWNA DIETZ MD July 21, 2018 15:41
[2018-07-21] MEDS ORDERED: NS IV 1000 ML 1,000 ML IV ONE (15:46)
[2018-07-21 15:47] LABS: BILIRUBIN,TOTAL 2.5 MG/DL (0.1-1.0); CALCIUM 8.8 MG/DL (8.5-10.1); CREATININE SERUM 4.25 MG/DL (0.60-1.30); INR 1.1 (0.8-1.4); POTASSIUM 4.8 MMOL/L (3.6-5.0); PROTHROMBIN TIME PATIENT 14.7 SEC (12.2-14.7); TOTAL PROTEIN 7.3 GM/DL (6.4-8.2)
[2018-07-21 15:56] LABS: AMORPHOUS SEDIMENT,UR FEW AMOR URATES /LPF; BACTERIA,URINE TRACE /HPF; BILIRUBIN,URINE 1+ (NEGATIVE); SQUAMOUS EPITHELIAL CELL,UR RARE /HPF
--- NOTE | 2018-07-21 16:01 | Diagnostic Imaging Report ---
INDICATION: Abdominal pain and weakness. TIME OF EXAM: 3:44 p.m. Correlation is made with prior study 03/12/2018. Changes of median sternotomy and CABG are noted. Cardiac pacemaker remains in place. There is no infiltrate or failure. No effusion or pneumothorax is seen. IMPRESSION: No acute cardiopulmonary process is detected. Dictated by: Dictated on workstation # [id number]
[2018-07-21 16:07] LABS: BAND NEUTROPHILS 5 %; BURR CELLS SLIGHT; CRENATED RBC MODERATE; LYMPHOCYTES % (MANUAL) 4 %; METAMYELOCYTES % 2 %; MONOCYTES % (MANUAL) 7 %; NEUTROPHILS % (MANUAL) 82 %; POLYCHROMASIA SLIGHT
--- NOTE | 2018-07-21 17:05 | Diagnostic Imaging Report ---
PROCEDURE: CT abdomen and pelvis without contrast. TECHNIQUE: Multiple contiguous axial images were obtained through the abdomen and pelvis without the use of intravenous contrast. Auto Exposure Controls were utilized during the CT exam to meet ALARA standards for radiation dose reduction. INDICATION: Abdominal pain and vomiting. COMPARISON: No prior studies are available for comparison. FINDINGS: Imaging through the lung bases demonstrates trace right and small left pleural effusion. No significant infiltrate is seen. Study is compromised by motion artifact. No discrete liver mass is seen. There is high density in the gallbladder which may represent stones. No biliary duct dilatation is seen. There appears to be fullness throughout the pancreatic head, body and tail. There appears to be significant peripancreatic inflammatory stranding and increased density. No well-formed fluid collection is seen. No pancreatic ductal dilatation is identified. The spleen is unremarkable. No adrenal mass is seen. Kidneys are without calculi or hydronephrosis. Aorta is heavily calcified. Bowel loops are nonobstructed. Bladder is decompressed by Perez catheter. IMPRESSION: 1. Cholelithiasis. There is diffuse pancreatic enlargement with marked peripancreatic inflammatory stranding. Features are most suggestive of acute pancreatitis. No well-formed pseudocyst is seen at this time. Peripancreatic fluid does demonstrate moderate increased density which may represent a component of hemorrhage. 2. Bilateral effusions, left greater. Dictated by: Dictated on workstation # [id number]
[2018-07-21 17:15] LABS: AMYLASE 1688 U/L (25-125)
[2018-07-21 17:42] LABS: LIPASE 2138 U/L (8-78)
[2018-07-21] MEDS ORDERED: PIPERACILLIN SODIUM/TAZOBACTAM 4.5 GM in NS (IVPB) 100 ML IV ONE (18:00)
--- NOTE | 2018-07-21 18:12 | Consultation (Surgery) ---
History of Present Illness History of Present Illness Patient Consulted On(fabby/time) 07/21/18 18:05 Time Seen by Provider: 17:41 History of Present Illness Surgery asked to consult regarding abdominal pain, acute pancreatitis. HPI per ED: Here with report of significant abdominal pain. Apparently she's not had a bowel movement in 2 days. Patient is not answering questions very well and seemed to be related to pain. There is a report of fever at the half-way although that is not translated here. Patient is complaining of severe abdominal pain and she is rigid throughout the abdomen. She is not able to provide significant history. She does follow commands and does answer simple questions. Timing/Duration: 12-24 Hours, Getting Worse Severity/Quality: Moderate, Severe, Aching Location: Generalized Abdomen Radiation: Back Activities at Onset: None Modifying Factors: Worsens With Movement; Improves With Resting Associated Symptoms: Back Pain; No Chest Pain; Fever/Chills; No Nausea/Vomiting , No Shortness of Air; Weakness When I spoke to pt she is able to communicate pain, but not really able to expand on that. She did say she's never had pain like this before. Allergies and Home Medications Allergies Coded Allergies: Schuyler Known Allergies (Unverified Allergy, Mild, 07/03/08) Home Medications Aspirin 81 Mg Tablet.dr 81 MG PO DAILY Prescribed by: ERVIN TRAN on 03/19/18 08 Atorvastatin Calcium 40 Mg Tablet, 40 MG PO HS Prescribed by: ERVIN TRAN on 03/19/18 08 Citalopram Hydrobromide 20 Mg Tablet, 20 MG PO DAILY Prescribed by: ERVIN TRAN on 03/19/18 08 Clopidogrel Bisulfate 75 Mg Tablet, 75 MG PO DAILY Prescribed by: ERVIN TRAN on 03/19/18 08 Ezetimibe 10 Mg Tablet, 10 MG PO HS Prescribed by: ERVIN TRAN on 03/19/18 08 Famotidine 20 Mg Tablet, 20 MG PO DAILY Prescribed by: ERVIN TRAN on 03/19/18 08 Levothyroxine Sodium 25 Mcg Tablet, 25 MCG PO DAILY@0630 Prescribed by: ERVIN TRAN on 03/19/18 08 Lisinopril 10 Mg Tablet, 10 MG PO DAILY Prescribed by: ERVIN TRAN on 03/19/18 08 Metformin HCl 500 Mg Tablet, 500 MG PO DAILY@07 Prescribed by: ERVIN TRAN on 03/19/18 0853 Metoprolol Succinate 25 Mg Tab.er.24h, 50 MG PO DAILY@1800 Prescribed by: ERVIN TRAN on 03/19/18 0853 Tramadol HCl 50 Mg Tablet, 50 MG PO Q6H PRN for PAIN-MODERATE Prescribed by: ERVIN TRAN on 03/19/18 0853 Patient Home Medication List Home Medication List Reviewed: Yes Past Obcnfep-Jrrahi-Qauefl Hx Patient Social History Alcohol Use: Denies Use Recreational Drug Use: No Smoking Status: Unknown if Ever Smoked Recent Foreign Travel: No Contact w/Someone Who Travel: No Recent Infectious Disease Expo: No Recent Hopitalizations: No Immunizations Up To Date Date of Pneumonia Vaccine: Dec 16, 2016 Date of Influenza Vaccine: Mar 11, 2018 Seasonal Allergies Seasonal Allergies: No Surgeries History of Surgeries: Yes (Knee surgery bilt) Surgeries: Cardiac, CABG, Eye Surgery, Hysterectomy, Orthopedic, Pacemaker Respiratory History of Respiratory Disorde: No Cardiovascular History of Cardiac Disorders: Yes (STENTS 20 PACEMAKER, CHF) Cardiac Disorders: Coronary Artery Disease, High Cholesterol, Hypertension Neurological History of Neurological Disord: Yes (aphasia/ataxia, Hemiplegia, 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) Neurological Disorders: Stroke Reproductive System Hx Reproductive Disorders: No Sexually Transmitted Disease: No Genitourinary History of Genitourinary Disor: Yes (CHRONIC KIDNEY DISEASE) Genitourinary Disorders: Renal Failure Gastrointestinal History of Gastrointestinal Di: Yes Gastrointestinal Disorders: Gastroesophageal Reflux, Chronic Constipation Musculoskeletal History of Musculoskeletal Dis: Yes (nueropathy in feet) Musculoskeletal Disorders: Arthritis Endocrine History of Endocrine Disorders: Yes Endocrine Disorders: Hypothyroidsim, Diabetes, Non-Insulin dep HEENT History of HEENT Disorders: No Cancer History of Cancer: No Psychosocial History of Psychiatric Problem: Yes Behavioral Health Disorders: Depression Integumentary History of Skin or Integumenta: No Blood Transfusions History of Blood Disorders: No Family Medical History Significant Family History: Diabetes Review of Systems-General ROS-Unable to Obtain: pt not able to answer all questions Constitutional: malaise, weakness Respiratory: No dyspnea on exertion Cardiovascular: No chest pain Gastrointestinal: abdominal pain, constipation; No hematemesis, No jaundice Physical Exam-General Problems Physical Exam Vital Signs Vital Signs - First Documented 07/21/18 15:38 Temp 98.2 Pulse 110 Resp 20 B/P (MAP) 133/95 (108) Pulse Ox 95 Capillary Refill : Less Than 3 Seconds General Appearance: WD/WN, moderate distress Eyes: Bilateral Eye PERRL, Bilateral Eye EOMI HEENT: pharynx normal; No scleral icterus (R), No scleral icterus (L); other ( edentulous) Neck: non-tender, supple Respiratory: chest non-tender, lungs clear, no respiratory distress, no accessory muscle use, decreased breath sounds (left base), crackles (left base) Cardiovascular: no murmur, tachycardia Gastrointestinal: abnormal bowel sounds (decreased), distended, guarding, tenderness Extremities: no pedal edema, no calf tenderness, normal capillary refill Neurologic/Psychiatric: alert, disoriented x 3 Skin: normal color, warm/dry Lymphatic: no adenopathy (neck, axilla or groin) Data Review Labs Laboratory Tests 07/21/18 15:15: White Blood Count 13.1H, Red Blood Count 4.78, Hemoglobin 14.1, Hematocrit 41, Mean Corpuscular Volume 86, Mean Corpuscular Hemoglobin 30, Mean Corpuscular Hemoglobin Concent 34, Red Cell Distribution Width 14.6H, Platelet Count 120L, Mean Platelet Volume 11.2H, Neutrophils (%) (Auto) 86H, Lymphocytes (%) (Auto) 5L, Monocytes (%) (Auto) 9, Eosinophils (%) (Auto) 0, Basophils (%) (Auto) 0, Neutrophils # (Auto) 11.2H, Lymphocytes # (Auto) 0.7L, Monocytes # (Auto) 1.2H, Eosinophils # (Auto) 0.0, Basophils # (Auto) 0.0, Neutrophils % (Manual) 82, Lymphocytes % (Manual) 4, Monocytes % (Manual) 7, Metamyelocytes % 2, Band Neutrophils 5, Polychromasia SLIGHT, [place] Cells SLIGHT, Crenated Cell MODERATE, Prothrombin Time 14.7, INR Comment 1.1, Activated Partial Thromboplast Time 29, Urine Color AMBERH, Urine Clarity SLIGHTLY CLOUDY, Urine pH 5, Urine Specific [place] 1.020, Urine Protein 2+H, Urine Glucose (UA) 1+H, Urine Ketones NEGATIVE , Urine Nitrite NEGATIVE, Urine Bilirubin 1+H, Urine Urobilinogen NORMAL, Urine Leukocyte Esterase 1+H, Urine RBC (Auto) 2+H, Urine RBC NONE, Urine WBC NONE, Urine Squamous Epithelial Cells RARE, Urine Crystals NONE, Urine Amorphous Sediment FEW KIYA URATESH, Urine Bacteria TRACE, Urine Casts PRESENT, Urine Hyaline Casts 5-10H, Urine Mucus NEGATIVE, Urine Culture Indicated NO, Sodium Level 136, Potassium Level 4.8, Chloride Level 99, Carbon Dioxide Level 18L, Anion Gap 19H, Blood Urea Nitrogen 89H, Creatinine 4.25H, Estimat Glomerular Filtration Rate 10, BUN/Creatinine Ratio 21, Glucose Level 232H, Lactic Acid Level 3.97*H, Calcium Level 8.8, Corrected Calcium 8.8, Total Bilirubin 2.5H, Aspartate Amino Transf (AST/SGOT) 84H, Alanine Aminotransferase (ALT/SGPT) 61H, Alkaline Phosphatase 89, Total Protein 7.3, Albumin 4.0, Amylase Level 1688H, Lipase 2138H 07/21/18 17:19: Lactic Acid Level 3.73*H Assessment/Plan Assessment/Plan Assessment/Plan 1. Acute Pancreatitis 2. Acute Renal Failure - most likely secondary to #3 3. Dehydration 4. Cholelithiasis Pt is being admitted, high IV fluids, pain control, IV ABX and will monitor abdomen and labs. Pt will most likely need Lap Maida during this admission, first need pain and pancreatic enzymes trending down. Will also need to find POA or see if she can sign herself. СВЕТЛАНА LOMBARDI DO July 21, 2018 18:12
[2018-07-21] MEDS ORDERED: fentaNYL INJECTION 100 MCG/2 ML AMP IVP STA (18:13)
--- NOTE | 2018-07-21 19:00 | NUR ---
RADHA NADINE Margie admitted to room 418-1, with an admitting diagnosis of PANCREATITIS, ACUTE RENAL FAILURE, CHOLEYLITHISIS on 07/21/18 from ER via [facility], accompanied by STAFF. NADINE GARCIA introduced to surroundings, call light, bed controls, phone, TV, temperature control, lights, meal times, smoking policy, visitor policy, side rail policy, bathrooms and showers. Patient Rights given to patient in the handbook.NADINE GARCIA verbalizes understanding that [facility] is not responsible for the loss or damage to any personal effects or valuables that are kept in the patients posession during their hospitalization.
[2018-07-21] MEDS ORDERED: ONDANSETRON 4 MG/2 ML (SDV) Z0FRAN IV PRN (19:15)
[2018-07-21 19:18] VITALS: BP 157/80
[2018-07-21] MEDS ORDERED: CATHETER FLUSH 10 ML SYR IV PRN (19:30)
[2018-07-21] MEDS: NS IV 1000 ML 1,000 ML IV SCH (19:45)
[2018-07-21 20:00] VITALS: BP 156/81
[2018-07-21] MEDS: PIPERACILLIN/TAZO 4.5 GM/NS 100 ML IV SCH ×2 (23:54)
[2018-07-21] MEDS: inSUlin ASPART (NovoLOG) 1 UNIT/0.01 ML (CHARGE PER UNIT) SC SCH (23:54)
[2018-07-22] VITALS: BP 137/70
[2018-07-22 04:00] VITALS: BP 184/77
[2018-07-22] MEDS: NS IV 1000 ML 1,000 ML IV SCH ×4 (04:51→21:55)
[2018-07-22 05:00] LABS: BASOPHILS % (AUTO) 0 % (0-10); EOSINOPHILS % (AUTO) 0 % (0-10); HEMATOCRIT 33 % (35-52); HEMOGLOBIN 11.1 G/DL (11.5-16.0); LYMPHOCYTES # (AUTO) 0.4 X 10^3 (1.0-4.0); LYMPHOCYTES % (AUTO) 4 % (12-44); MEAN CORPUSCULAR HEMOGLOBIN 30 PG (25-34); MEAN CORPUSCULAR HGB CONC 34 G/DL (32-36); MEAN CORPUSCULAR VOLUME 87 FL (80-99); MEAN PLATELET VOLUME 11.1 FL (7.4-10.4); MONOCYTES # (AUTO) 0.8 X 10^3 (0.0-1.0); MONOCYTES % (AUTO) 8 % (0-12); NEUTROPHILS # (AUTO) 8.5 X 10^3 (1.8-7.8); NEUTROPHILS % (AUTO) 87 % (42-75); PLATELET COUNT 105 10^3/uL (130-400); RED CELL DISTRIBUTION WIDTH 14.8 % (10.0-14.5); WHITE BLOOD COUNT 9.8 10^3/uL (4.3-11.0)
[2018-07-22 05:20] LABS: ALBUMIN 3.2 GM/DL (3.2-4.5); BILIRUBIN,TOTAL 2.5 MG/DL (0.1-1.0); CALCIUM 7.7 MG/DL (8.5-10.1); CREATININE SERUM 3.73 MG/DL (0.60-1.30); TOTAL PROTEIN 5.7 GM/DL (6.4-8.2)
[2018-07-22] MEDS: inSUlin ASPART (NovoLOG) 1 UNIT/0.01 ML (CHARGE PER UNIT) SC SCH ×4 (06:15→23:53)
[2018-07-22 08:00] VITALS: BP 109/73
--- NOTE | 2018-07-22 09:48 | Consultation-Cardiology ---
HPI-Cardiology Cardiology Consultation Date of Consultation 07/22/18 Date of Admission Time Seen by Provider: 09:59 Indication: CAD HPI Patient is a 78 y/o female with history of CAD, CVA, HTN. [facility] with complaints of severe abdominal pain. Denies any chest pain, dizziness or syncope. Further workup done in the ER revealed acute pancreatitis , acute renal failure and dehydration. Continues to complain of abdominal pain. Denies any chest pain, dyspnea or dizziness. This is Dr. Borges, I have seen and evaluated Mrs. isabel, she is 78 years old lady with history of coronary artery disease, hypertension hyperlipidemia, admitted for acute pancreatitis and acute renal failure. uvula July during my evaluation patient was having mild discomfort, denied any chest pain, she was tachycardic, EKG was done then I proceeded with giving her 5 mg of IV Lopressor which improved her heart rate back to 85. Blood pressure continued to be stable. Home Medications & Allergies Allergies: Coded Allergies: NKANo Known Allergies (Unverified Allergy, Mild, 07/03/08) Home Medication List Reviewed: Yes medication list reviewed [id number]-Afvduo Hx Patient Social History Employed/Student: retired Alcohol Use: Denies Use Recreational Drug Use: No Smoking Status: Unknown if Ever Smoked Recent Foreign Travel: No Recent Infectious Disease Expo: No Recent Hopitalizations: No Immunizations Up To Date Date of Pneumonia Vaccine: Dec 16, 2016 Date of Influenza Vaccine: Mar 11, 2018 Past Medical History CAD, CVA, HTN, HLP Family Medical History Significant Family History: Diabetes Family History: Patient reports no known family medical history. Review of Systems Constitutional: No fever; malaise, weakness EENTM: No blurred vision, No double vision, No vision loss Respiratory: No cough, No dyspnea on exertion Cardiovascular: No chest pain, No edema, No palpitations Gastrointestinal: abdominal pain (diffusely ttp all quadrants), constipation Genitourinary: No discharge, No dysuria, No frequency Musculoskeletal: No joint pain, No muscle pain, No muscle weakness Skin: No lesions, No rash Psychiatric/Neurological: Denies Anxiety, Denies Depressed Reviewed Test Results Reviewed Test Results Lab Laboratory Tests 07/21/18 15:15: White Blood Count 13.1H, Red Blood Count 4.78, Hemoglobin 14.1, Hematocrit 41, Mean Corpuscular Volume 86, Mean Corpuscular Hemoglobin 30, Mean Corpuscular Hemoglobin Concent 34, Red Cell Distribution Width 14.6H, Platelet Count 120L, Mean Platelet Volume 11.2H, Neutrophils (%) (Auto) 86H, Lymphocytes (%) (Auto) 5L, Monocytes (%) (Auto) 9, Eosinophils (%) (Auto) 0, Basophils (%) (Auto) 0, Neutrophils # (Auto) 11.2H, Lymphocytes # (Auto) 0.7L, Monocytes # (Auto) 1.2H, Eosinophils # (Auto) 0.0, Basophils # (Auto) 0.0, Neutrophils % (Manual) 82, Lymphocytes % (Manual) 4, Monocytes % (Manual) 7, Metamyelocytes % 2, Band Neutrophils 5, Polychromasia SLIGHT, [place] Cells SLIGHT, Crenated Cell MODERATE, Prothrombin Time 14.7, INR Comment 1.1, Activated Partial Thromboplast Time 29, Urine Color AMBERH, Urine Clarity SLIGHTLY CLOUDY, Urine pH 5, Urine Specific [place] 1.020, Urine Protein 2+H, Urine Glucose (UA) 1+H, Urine Ketones NEGATIVE , Urine Nitrite NEGATIVE, Urine Bilirubin 1+H, Urine Urobilinogen NORMAL, Urine Leukocyte Esterase 1+H, Urine RBC (Auto) 2+H, Urine RBC NONE, Urine WBC NONE, Urine Squamous Epithelial Cells RARE, Urine Crystals NONE, Urine Amorphous Sediment FEW KIYA URATESH, Urine Bacteria TRACE, Urine Casts PRESENT, Urine Hyaline Casts 5-10H, Urine Mucus NEGATIVE, Urine Culture Indicated NO, Sodium Level 136, Potassium Level 4.8, Chloride Level 99, Carbon Dioxide Level 18L, Anion Gap 19H, Blood Urea Nitrogen 89H, Creatinine 4.25H, Estimat Glomerular Filtration Rate 10, BUN/Creatinine Ratio 21, Glucose Level 232H, Lactic Acid Level 3.97*H, Calcium Level 8.8, Corrected Calcium 8.8, Total Bilirubin 2.5H, Aspartate Amino Transf (AST/SGOT) 84H, Alanine Aminotransferase (ALT/SGPT) 61H, Alkaline Phosphatase 89, Total Protein 7.3, Albumin 4.0, Amylase Level 1688H, Lipase 2138H 07/21/18 17:19: Lactic Acid Level 3.73*H 07/21/18 20:42: Glucometer 208H 07/21/18 23:44: Glucometer 205H 07/22/18 04:35: White Blood Count 9.8, Red Blood Count 3.75L, Hemoglobin 11.1#L, Hematocrit 33L , Mean Corpuscular Volume 87, Mean Corpuscular Hemoglobin 30, Mean Corpuscular Hemoglobin Concent 34, Red Cell Distribution Width 14.8H, Platelet Count 105L, Mean Platelet Volume 11.1H, Neutrophils (%) (Auto) 87H, Lymphocytes (%) (Auto) 4L, Monocytes (%) (Auto) 8, Eosinophils (%) (Auto) 0, Basophils (%) (Auto) 0, Neutrophils # (Auto) 8.5H, Lymphocytes # (Auto) 0.4L, Monocytes # (Auto) 0.8, Eosinophils # (Auto) 0.0, Basophils # (Auto) 0.0, Sodium Level 143, Potassium Level 4.0, Chloride Level 110#H, Carbon Dioxide Level 15L, Anion Gap 18H, Blood Urea Nitrogen 84H, Creatinine 3.73#H, Estimat Glomerular Filtration Rate 12, BUN /Creatinine Ratio 23, Glucose Level 168H, Calcium Level 7.7L, Corrected Calcium 8.3L, Total Bilirubin 2.5H, Aspartate Amino Transf (AST/SGOT) 71H, Alanine Aminotransferase (ALT/SGPT) 41, Alkaline Phosphatase 64, Total Protein 5.7L, Albumin 3.2 07/22/18 05:25: Glucometer 174H Microbiology 07/21/18 Urine Culture - Final, Complete NO GROWTH ECG Impression ECG Initial ECG Rhythm: Normal Sinus Physical Exam Vital Signs Vital Signs - First Documented 07/21/18 07/21/18 15:38 19:18 Temp 98.2 Pulse 110 Resp 20 B/P (MAP) 133/95 (108) Pulse Ox 95 O2 Delivery Room Air Capillary Refill : Less Than 3 Seconds Height, Weight, BMI Height: 5'0.00" Weight: 147lbs. 0.5oz. [id number]; 28.7 BMI Method:Stated General Appearance: No Apparent Distress, WD/WN HEENT: TMs Normal, Normal ENT Inspection Neck: Non Tender, Supple Respiratory: Chest Non Tender, Lungs Clear, Normal Breath Sounds, No Accessory Muscle Use, No Respiratory Distress Cardiovascular: Regular Rate, Rhythm, No Edema, No Gallop, No JVD, No Murmur, Normal Peripheral Pulses Gastrointestinal: Guarding, Tenderness Rectal: Deferred Back: No CVA Tenderness Extremity: Non Tender, No Calf Tenderness 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, Oriented x3, education program specialist II-XII Norm as Tested A/P-Cardiology Admission Diagnosis Acute pancreatitis Acute renal failure CAD HTN Assessment/Plan Acute pancreatitis- continue IV fluids, Dr. Jean following Acute on chronic renal failure, discontinue DAVID inhibitor start IV fluid hydrate and monitor closely. Will avoid the use of any DAVID inhibitor and/or ARB in the future Dehydration-continue IV fluids Cholelithiasis-management per Dr. Jean. Paroxysmal SVT, reentry tachycardia- heart rate better controlled after receiving IV Lopressor, I will use Lopressor IV every 6 hours and monitor closely History of CVA, had an acute CVA in March 2018 with left MCA distribution thrombus, received TPA on March 08, 2018 noted to have small intracranial bleed on March 10, 2018, better at this time. No residual deficit was reported. Maintained on Plavix and ASA. Coronary artery disease, history of non-ST elevation myocardial infarction with elevated troponin of 1.5, conservative management in , history of CABG, review of her record showed history of cardiac catheterization using multiple stents, the mid RCA had a Cypher 3.528 and 2.523, distal RCA reported Cypher 2.528, the RCA has another report of a stent done in May 2010 with Xience 3.5 x 38, the LAD there are report of a stent done in 2001 using MultiLink 2.75 25 and in 2007 Xience 3.5 time 18. Stress test April 2018 showed breast attenuation with fixed defect involving the basal to mid anterolateral and inferolateral wall, stress score 14, SDS 4, ejection fraction 44 percent, currently asymptomatic. Continue with conservative management at this time and will consider catheterization if she become symptomatic Congestive heart failure, chronic compensated left ventricular systolic dysfunction, ischemic in nature, ejection fraction 35-40 percent. Continue on beta sirisha. DAVID-I or ARB contraindicated secondary to renal failure. Dual-chamber pacemaker implanted on March 01, 2013, send James done by Dr. Barrientos using ACCENT DR RF [id number], last checkup was done on April 10, 2018 showing longevity 7.5 years, atrial impedance is 400, ventricular impedance 460 , P-wave 2.4 mV, R wave more than 12 mV, threshold for atrium 0.62 at 0.6 ms, ventricle 0.75 at 0.4 ms, atrial pacing 63 percent, ventricular pacing less than 1 percent. Continue on the same setting and monitor History of syncope with questionable hypotensive episode and vasovagal episode. Currently severely hypertension. Labile hypertension with episode of severe hypertension, restart Toprol XL and continue to monitor. Hyperlipidemia maintained on Lipitor and Zetia as outpatient. I will discontinue at this time secondary to pancreatitis. Hypothyroidism, managed by primary care physician Thank you for allowing us to participate in the management of Ms. Isabel. This is Tamera Avalos PA-C, as a scribe for Dr. Borges. This is Dr. Borges, I have seen and evaluated the patient with Tamera, interviewed and examined the patient, agree with the current scribed note. she is 78 years old lady with history of coronary artery disease, hypertension hyperlipidemia, admitted for acute pancreatitis and acute renal failure. uvjuly during my evaluation patient was having mild discomfort, denied any chest pain, she was tachycardic, EKG was done then I proceeded with giving her 5 mg of IV Lopressor which improved her heart rate back to 85. Blood pressure continued to be stable. On examination lungs were clear to auscultation bilaterally, heart has improved back to normal sinus rhythm. Lungs were clear to auscultation having abdominal pain, patient has acute pancreatitis subsequently I will hold Lipitor, had acute renal failure and I will stop DAVID inhibitor, keep her on IV fluid at this time and monitor closely. Start IV beta blockers. I made few minor modifications to the note using Italic font Clinical Quality Measures DVT/VTE Risk/Contraindication: Risk Factor Score Per Nursin RFS Level Per Nursing on Admit: 3=High TAMERA LE July 22, 2018 09:48 JAC BORGES MD July 22, 2018 13:29
--- NOTE | 2018-07-22 10:15 | Diagnostic Imaging Report ---
PROCEDURE: US Gallbladder. TECHNIQUE: Multiple real-time grayscale images were obtained over the right upper quadrant in various projections. INDICATION: Pancreatitis and cholelithiasis. Correlation made with CT study performed one day earlier. The liver is normal in size at 15.4 cm. No discrete liver mass is identified. The portal vein is patent and shows normal direction of flow. Gallbladder is containing a large stone. Gallbladder wall is mildly thickened at 4 mm. A moderate amount of debris is seen in the gallbladder as well. Extra hepatic bile duct was not visualized. Pancreas was obscured by bowel gas. Right kidney is unremarkable. No ascites is seen. IMPRESSION: 1. Cholelithiasis and borderline gallbladder wall thickening. Cholecystitis cannot be entirely excluded and HIDA scan may be useful for further evaluation. 2. Nonvisualized pancreas. Dictated by: Dictated on workstation # [id number]
[2018-07-22] MEDS: PIPERACILLIN/TAZO 4.5 GM/NS 100 ML IV SCH ×2 (11:09)
--- NOTE | 2018-07-22 11:12 | NUR ---
patient heart rate sustaining around 170, was notified, Wing stated she would put in orders for medication
[2018-07-22] MEDS ORDERED: meTOprolol 5 MG/5 ML (LOPRESSOR) VIAL IV ONE (11:15)
--- NOTE | 2018-07-22 11:18 | History & Physicial ([facility]) ---
HPI History of Present Illness: 78 yo F that states she has had several days of abdominal pain and decreased PO intake. States that the pain got so bad that she came in last night. Denies and N/V. She was found to have severe pancreatitis and gallbladder disease. Source: patient Exam Limitations: no limitations Date seen by provider: July 22, 2018 Time Seen by Provider: 10:45 Attending Physician Maya Dimas MD PCP Paul Salas MD Consult Date of Admission July 21, 2018 at 18:31 Home Medications Home Medications Reviewed patient Home Medication Reconciliation performed by pharmacy medication reconciliations csr technician and/or nursing. Patients Allergies have been reviewed. Allergies Coded Allergies: NKANo Known Allergies (Unverified Allergy, Mild, 07/03/08) [id number] Hx Patient Social History Employed/Student: retired Alcohol Use: Denies Use Recreational Drug Use: No Smoking Status: Unknown if Ever Smoked Recent Foreign Travel: No Contact w/other who traveled: No Recent Hopitalizations: No Recent Infectious Disease Expo: No Immunizations Up To Date Date of Pneumonia Vaccine: Dec 16, 2016 Date of Influenza Vaccine: Mar 11, 2018 Past Medical History CAD CKD HTN Family Medical History Significant Family History: Diabetes Family History: Patient reports no known family medical history. Review of Systems ([facility]) Constitutional: chills, fever, malaise EENTM: no symptoms reported; No mouth pain, No nose congestion, No throat pain Respiratory: no symptoms reported; No cough, No dyspnea on exertion, No short of breath Cardiovascular: No chest pain, No edema; palpitations Gastrointestinal: abdominal pain (diffuse), loss of appetite, nausea Genitourinary: no symptoms reported; No dysuria, No frequency, No hematuria : No Musculoskeletal: no symptoms reported; No back pain, No muscle pain Skin: no symptoms reported; No lesions, No rash Psychiatric/Neurological: No Symptoms Reported Reviewed Test Results Reviewed Test Results Lab Laboratory Tests Test 07/21/18 23:44 07/22/18 04:35 07/22/18 05:25 07/22/18 12:24 Range/Units Glucometer 205 H 174 H 188 H 70-110 MG/DL White Blood Count 9.8 4.3-11.0 10^3/uL Red Blood Count 3.75 L 4.35-5.85 10^6/uL Hemoglobin 11.1 #L 11.5-16.0 G/DL Hematocrit 33 L 35-52 % Mean Corpuscular Volume 87 80-99 FL Mean Corpuscular Hemoglobin 30 25-34 PG Mean Corpuscular Hemoglobin Concent 34 32-36 G/DL Red Cell Distribution Width 14.8 H 10.0-14.5 % Platelet Count 105 L 130-400 10^3/uL Mean Platelet Volume 11.1 H 7.4-10.4 FL Neutrophils (%) (Auto) 87 H 42-75 % Lymphocytes (%) (Auto) 4 L 12-44 % Monocytes (%) (Auto) 8 0-12 % Eosinophils (%) (Auto) 0 0-10 % Basophils (%) (Auto) 0 0-10 % Neutrophils # (Auto) 8.5 H 1.8-7.8 X 10^3 Lymphocytes # (Auto) 0.4 L 1.0-4.0 X 10^3 Monocytes # (Auto) 0.8 0.0-1.0 X 10^3 Eosinophils # (Auto) 0.0 0.0-0.3 10^3/uL Basophils # (Auto) 0.0 0.0-0.1 10^3/uL Sodium Level 143 135-145 MMOL/L Potassium Level 4.0 3.6-5.0 MMOL/L Chloride Level 110 #H 98-107 MMOL/L Carbon Dioxide Level 15 L 21-32 MMOL/L Anion Gap 18 H 5-14 MMOL/L Blood Urea Nitrogen 84 H 7-18 MG/DL Creatinine 3.73 #H 0.60-1.30 MG/DL Estimat Glomerular Filtration Rate 12 BUN/Creatinine Ratio 23 Glucose Level 168 H 70-105 MG/DL Calcium Level 7.7 L 8.5-10.1 MG/DL Corrected Calcium 8.3 L 8.5-10.1 MG/DL Total Bilirubin 2.5 H 0.1-1.0 MG/DL Aspartate Amino Transf (AST/SGOT) 71 H 5-34 U/L Alanine Aminotransferase (ALT/SGPT) 41 0-55 U/L Alkaline Phosphatase 64 40-136 U/L Total Protein 5.7 L 6.4-8.2 GM/DL Albumin 3.2 3.2-4.5 GM/DL Test 07/22/18 14:05 07/22/18 18:15 Range/Units Amylase Level 42 25-125 U/L Lipase 19 8-78 U/L Glucometer 224 H 70-110 MG/DL Physical Exam-([facility]) Physical Exam Vital Signs VS - Last 72 Hours, by Label 07/21/18 07/21/18 07/21/18 07/21/18 15:38 18:53 19:18 20:00 Temp 98.2 98.7 98.7 Pulse 110 102 109 105 Resp 20 20 20 20 B/P (MAP) 133/95 (108) 163/64 (97) 157/80 156/81 (106) Pulse Ox 95 94 97 96 O2 Delivery Room Air Room Air 07/21/18 07/21/18 07/22/18 07/22/18 20:10 21:35 00:00 01:00 Temp 98.6 Pulse 100 101 97 Resp 18 B/P (MAP) 137/70 (92) Pulse Ox 96 O2 Delivery Room Air Room Air 07/22/18 07/22/18 07/22/18 07/22/18 04:00 07:00 08:00 08:38 Temp 98.7 98.5 Pulse 100 95 95 Resp 16 22 B/P (MAP) 184/77 (112) 109/73 (85) Pulse Ox 95 96 O2 Delivery Room Air Room Air Room Air 07/22/18 07/22/18 07/22/18 07/22/18 12:00 12:59 15:51 19:00 Temp 98.4 98.6 Pulse 90 89 90 82 Resp 22 22 B/P (MAP) 142/64 (90) 165/73 (103) Pulse Ox 94 96 O2 Delivery Room Air Room Air 07/22/18 20:00 Temp 99.3 Pulse 78 Resp 22 B/P (MAP) 160/86 (110) Pulse Ox 96 O2 Delivery Room Air Capillary Refill : Less Than 3 Seconds General Appearance: mild distress HEENT: PERRL/EOMI Neck: non-tender, full range of motion, supple Respiratory: chest non-tender, lungs clear, normal breath sounds, no respiratory distress, no accessory muscle use Cardiovascular: normal peripheral pulses, regular rate, rhythm, no murmur Gastrointestinal: normal bowel sounds, soft, tenderness (diffuse upper quadrant abdominal pain); No mass Back: no CVA tenderness, no vertebral tenderness Extremities: no pedal edema, no calf tenderness, normal capillary refill Neurologic/Psychiatric: engine installer II-XII nml as tested, no motor/sensory deficits, alert, oriented x 3 Skin: normal color, warm/dry Lymphatic: no adenopathy Assessment/Plan Assessment/Plan Admission Status: Inpatient Order (span 2 midnights) Reason for Inpatient Admission: NPO and will need surgery (1) Pancreatitis Status: Acute Assessment & Plan: - General Surgery consulted, Patient NPO, IVFs 150cc/hr and IV pain meds Qualifiers: Qualified Codes: K85.10 - Biliary acute pancreatitis without necrosis or infection (2) Cholelithiasis Status: Acute Assessment & Plan: - General surgery consulted, patient likely needs surgery during this admission Qualifiers: Qualified Codes: K80.00 - Calculus of gallbladder with acute cholecystitis without obstruction (3) Acute kidney failure Status: Acute Assessment & Plan: - likely 2/2 dehydration, trending down, will continue to monitor (4) Lactic acidosis Status: Acute (5) Elevated LFTs Status: Acute (6) SVT (supraventricular tachycardia) Status: Acute Assessment & Plan: - Cardiology consulted, resolved with 5mg IV Lopressor (7) CAD (coronary artery disease) Status: Chronic Qualifiers: Qualified Codes: I25.10 - Atherosclerotic heart disease of [place] coronary artery without angina pectoris Clinical Quality Measures DVT/VTE Risk/Contraindication: Risk Factor Score Per Nursin RFS Level Per Nursing on Admit: 3=High Copy Copies To 1: PAUL SALAS MD, HOLLY R MD July 22, 2018 11:18
[2018-07-22] MEDS ORDERED: ATOR40TA PO (11:20)
[2018-07-22] MEDS ORDERED: CITA20TA9 PO (11:20)
[2018-07-22] MEDS ORDERED: ASPI-983 PO (11:20)
[2018-07-22] MEDS ORDERED: BISA5TAB8 PO (11:20)
[2018-07-22] MEDS ORDERED: CHOL5000 PO (11:21)
[2018-07-22] MEDS ORDERED: METO-395 PO (11:21)
[2018-07-22] MEDS ORDERED: LISI-552 PO (11:21)
[2018-07-22] MEDS ORDERED: CLOP75TA69 PO (11:21)
[2018-07-22] MEDS ORDERED: EZET10TA49 PO (11:21)
[2018-07-22] MEDS ORDERED: TRAM50TA2 PO (11:21)
[2018-07-22] MEDS ORDERED: FAMO20TA3 PO (11:21)
[2018-07-22] MEDS ORDERED: HYDR25TA4 PO (11:21)
[2018-07-22] MEDS ORDERED: METFROMIN PO (11:21)
[2018-07-22] MEDS ORDERED: LEVO25TA5 PO (11:21)
[2018-07-22] MEDS ORDERED: METF-397 PO (11:25)
--- NOTE | 2018-07-22 11:25 | NUR ---
UPDATED MED REC WITH [facility]
--- NOTE | 2018-07-22 11:30 | NUR ---
1110- noted to have sustained tachycardia rate 170's. Dr. Dimas notified. She stated she would order metoprolol IVP. 1120- Before metoprolol was given Dr. Borges on floor to see patient. This RN, preceptor, Dr. Borges, Tamera CROW, and Vero PCT to room. EKG performed. BP stable and metoprolol pushed. Dr. Borges examined patient. Pt had no complaints of chest pain or dizziness and no headache. 1125- HR [address] Borges present still. 1128- HR 80. Dr. Borges stated he would order IVP metoprolol on schedule due to pt needing to remain NPO for pancreatitis.
[2018-07-22 12:00] VITALS: BP 142/64
--- NOTE | 2018-07-22 14:04 | Progress Note ---
Subjective Time Seen by a Provider: 13:49 Subjective/Events-last exam Pt seen and examined appears a little more alert today. States she still has abdominal pain, but thinks it it better than yesterday. Denies nausea or vomiting. Review of Systems General: No Chills, No Night Sweats Pulmonary: No Dyspnea, No Cough Cardiovascular: No: Chest Pain, Palpitations Gastrointestinal: Abdominal Pain; No: Diarrhea Focused Exam Lactate Level 07/21/18 15:15: Lactic Acid Level 3.97*H 07/21/18 17:19: Lactic Acid Level 3.73*H Objective Exam Vital Signs Date Time Temp Pulse Resp B/P (MAP) Pulse Ox O2 Delivery O2 Flow Rate FiO2 07/22/18 12:59 89 07/22/18 12:00 98.4 90 22 142/64 (90) 94 Room Air 07/22/18 08:38 Room Air 07/22/18 08:00 98.5 95 22 109/73 (85) 96 Room Air 07/22/18 07:00 95 07/22/18 04:00 98.7 100 16 184/77 (112) 95 Room Air 07/22/18 01:00 97 07/22/18 00:00 98.6 101 18 137/70 (92) 96 Room Air 07/21/18 21:35 Room Air 07/21/18 20:10 100 07/21/18 20:00 98.7 105 20 156/81 (106) 96 Room Air 07/21/18 19:18 98.7 109 20 157/80 97 Room Air 07/21/18 18:53 102 20 163/64 (97) 94 07/21/18 15:38 98.2 110 20 133/95 (108) 95 I & O 07/22/18 07:00 Intake Total 3220 ml Output Total 900 ml Balance 2320 ml Capillary Refill : Less Than 3 Seconds General Appearance: No Apparent Distress, WD/WN HEENT: TMs Normal, Normal ENT Inspection Neck: Non Tender, Supple Respiratory: Chest Non Tender, Lungs Clear, Normal Breath Sounds (right lung), No Accessory Muscle Use, No Respiratory Distress, Decreased Breath Sounds (left base with crackles) Cardiovascular: Regular Rate, Rhythm, No Edema, No Murmur, Normal Peripheral Pulses Peripheral Pulses: 2+ Dorsalis Pedis (R), 2+ Left Dors-Pedis (L), 2+ Radial Pulses (R), 2+ Radial Pulses (L) Gastrointestinal: abnormal bowel sounds (hypoactive), guarding, tenderness Extremity: Non Tender, No Calf Tenderness 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, Oriented x3, reliability technician II-XII Norm as Tested Results Lab Laboratory Tests 07/21/18 15:15: White Blood Count 13.1H, Red Blood Count 4.78, Hemoglobin 14.1, Hematocrit 41, Mean Corpuscular Volume 86, Mean Corpuscular Hemoglobin 30, Mean Corpuscular Hemoglobin Concent 34, Red Cell Distribution Width 14.6H, Platelet Count 120L, Mean Platelet Volume 11.2H, Neutrophils (%) (Auto) 86H, Lymphocytes (%) (Auto) 5L, Monocytes (%) (Auto) 9, Eosinophils (%) (Auto) 0, Basophils (%) (Auto) 0, Neutrophils # (Auto) 11.2H, Lymphocytes # (Auto) 0.7L, Monocytes # (Auto) 1.2H, Eosinophils # (Auto) 0.0, Basophils # (Auto) 0.0, Neutrophils % (Manual) 82, Lymphocytes % (Manual) 4, Monocytes % (Manual) 7, Metamyelocytes % 2, Band Neutrophils 5, Polychromasia SLIGHT, Trent Cells SLIGHT, Crenated Cell MODERATE, Prothrombin Time 14.7, INR Comment 1.1, Activated Partial Thromboplast Time 29, Urine Color AMBERH, Urine Clarity SLIGHTLY CLOUDY, Urine pH 5, Urine Specific [place] 1.020, Urine Protein 2+H, Urine Glucose (UA) 1+H, Urine Ketones NEGATIVE , Urine Nitrite NEGATIVE, Urine Bilirubin 1+H, Urine Urobilinogen NORMAL, Urine Leukocyte Esterase 1+H, Urine RBC (Auto) 2+H, Urine RBC NONE, Urine WBC NONE, Urine Squamous Epithelial Cells RARE, Urine Crystals NONE, Urine Amorphous Sediment FEW KIYA URATESH, Urine Bacteria TRACE, Urine Casts PRESENT, Urine Hyaline Casts 5-10H, Urine Mucus NEGATIVE, Urine Culture Indicated NO, Sodium Level 136, Potassium Level 4.8, Chloride Level 99, Carbon Dioxide Level 18L, Anion Gap 19H, Blood Urea Nitrogen 89H, Creatinine 4.25H, Estimat Glomerular Filtration Rate 10, BUN/Creatinine Ratio 21, Glucose Level 232H, Lactic Acid Level 3.97*H, Calcium Level 8.8, Corrected Calcium 8.8, Total Bilirubin 2.5H, Aspartate Amino Transf (AST/SGOT) 84H, Alanine Aminotransferase (ALT/SGPT) 61H, Alkaline Phosphatase 89, Total Protein 7.3, Albumin 4.0, Amylase Level 1688H, Lipase 2138H 07/21/18 17:19: Lactic Acid Level 3.73*H 07/21/18 20:42: Glucometer 208H 07/21/18 23:44: Glucometer 205H 07/22/18 04:35: White Blood Count 9.8, Red Blood Count 3.75L, Hemoglobin 11.1#L, Hematocrit 33L , Mean Corpuscular Volume 87, Mean Corpuscular Hemoglobin 30, Mean Corpuscular Hemoglobin Concent 34, Red Cell Distribution Width 14.8H, Platelet Count 105L, Mean Platelet Volume 11.1H, Neutrophils (%) (Auto) 87H, Lymphocytes (%) (Auto) 4L, Monocytes (%) (Auto) 8, Eosinophils (%) (Auto) 0, Basophils (%) (Auto) 0, Neutrophils # (Auto) 8.5H, Lymphocytes # (Auto) 0.4L, Monocytes # (Auto) 0.8, Eosinophils # (Auto) 0.0, Basophils # (Auto) 0.0, Sodium Level 143, Potassium Level 4.0, Chloride Level 110#H, Carbon Dioxide Level 15L, Anion Gap 18H, Blood Urea Nitrogen 84H, Creatinine 3.73#H, Estimat Glomerular Filtration Rate 12, BUN /Creatinine Ratio 23, Glucose Level 168H, Calcium Level 7.7L, Corrected Calcium 8.3L, Total Bilirubin 2.5H, Aspartate Amino Transf (AST/SGOT) 71H, Alanine Aminotransferase (ALT/SGPT) 41, Alkaline Phosphatase 64, Total Protein 5.7L, Albumin 3.2 07/22/18 05:25: Glucometer 174H 07/22/18 12:24: Glucometer 188H Microbiology 07/21/18 Urine Culture - Final, Complete NO GROWTH Assessment/Plan Assessment/Plan Assessment/Plan 1. Acute Pancreatitis 2. Acute Renal Failure - most likely secondary to #3 3. Dehydration 4. Cholelithiasis Plan continue IV fluids, pain control, IV ABX. Abdomen is improving as is WBC, but Creatnine is still very high. Will check amylase and lipase. I did again mention to pt she will most likely need Lap Maida during this admission. Clinical Quality Measures DVT/VTE Risk/Contraindication: Risk Factor Score Per Nursin RFS Level Per Nursing on Admit: 3=High СВЕТЛАНА LOMBARDI DO July 22, 2018 14:04
[2018-07-22 14:37] LABS: AMYLASE 42 U/L (25-125); LIPASE 19 U/L (8-78)
[2018-07-22 15:51] VITALS: BP 165/73
[2018-07-22] MEDS: meTOprolol 5 MG/5 ML (LOPRESSOR) VIAL IV SCH ×2 (18:34→23:46)
[2018-07-22 20:00] VITALS: BP 160/86
[2018-07-23] VITALS (26 sets, daily range): BP systolic 107–172; BP diastolic 50–105
--- NOTE | 2018-07-23 00:35 | NUR ---
2335-ICU CALLED TO INFORM ME THAT PT IS CURRENTLY IN SVT SUSTAINING HEART RATE 160'S. WENT AND CHECKED ON PT AND PT WAS LYING IN BED BUT WAS SOA. VITAL SIGNS WERE CHECKED. TEMP-98.7, HR-163, BP-133/85, O2-97% RA, RESP-30 WITH LUNG SOUNDS WHEEZING. 2340-THIS RN AND SPECIAL EDUCATION PRESCHOOL TEACHER IN ROOM TO DO EKG. 2346-5MG IV LOPRESSOR THAT WAS SCHEDULED FOR 0000 WAS GIVEN AT THIS TIME. 0000-PTS HEART RATE DECREASED TO 80's WITH PVC's WITH OCCASIONAL PAC's PER ICU MEDICAL ASSISTING INSTRUCTOR. 0012-PAGED DR. JAY. 0014- SPOKE WITH DR. JAY AND INFORMED HIM OF PTS CONDITION AND HISTORY. TELEPHONE ORDERS RECEIVED FOR LASIX 60MG IV AT THIS TIME. AND TO INFORM MEDICAL DOCTOR IF PT CONTINUES WITH WHEEZING. 0030-PT RESTING COMFORTABLY AT THIS TIME. NO SOA OR WHEEZING NOTED.
[2018-07-23] MEDS ORDERED: FUROSEMIDE 40 MG/4 ML INJ (LASIX) IVP ONE (00:45)
[2018-07-23] MEDS: PIPERACILLIN/TAZO 4.5 GM/NS 100 ML IV SCH ×4 (00:55→11:14)
--- NOTE | 2018-07-23 03:15 | NUR ---
0256- ICU CINEMA OPERATOR CALLED AND PT IS BACK IN SVT AGAIN WITH HEART RATE SUSTAINING 160s. 0300-EKG PERFORMED AND SHOWED SVT HR 161. 0314- SPOKE WITH DR. JAY AND INFORMED HIM OF PTS CONDITION. TELEPHONE ORDERS RECEIVED TO CHANGE IV METOPROLOL TO Q4HRS INSTEAD OF Q6HRS. TO GIVE DOSE NOW AND CONTINUE TO GIVE EVERY 4 HRS. WILL CARRY OUT ORDERS AND CONTINUE TO MONITOR PT.
[2018-07-23] MEDS: meTOprolol 5 MG/5 ML (LOPRESSOR) VIAL IV SCH ×5 (03:24→20:06)
[2018-07-23] MEDS ORDERED: DIGOXIN 0.25 MG/ML (LANOXIN) 2 ML AMP IV SCH (04:45)
--- NOTE | 2018-07-23 04:45 | NUR ---
0324- 5MG LOPRESSOR IV GIVEN. 0350- HEART RATE STILL SUSTAINING 150S. 0434-SPOKE WITH DR. JAY AND INFORMED HIM THAT PT IS STILL IN SVT HR 150s AFTER 1 HOUR OF GIVING IV LOPRESSOR. BUT PT IS RESTING COMFORTABLY. TELEPHONE ORDERS RECEIVED FOR DIGOXIN 0.125MG IV X1 DOSE AND TO TRANSFER PT TO ICU WHEN BED AVAILABLE. THEN TO START IV DRIP TITRATE PER PROTOCOL, NO BOLUS.
[2018-07-23] MEDS ORDERED: DIGOXIN 0.25 MG/ML (LANOXIN) 2 ML AMP ONE (05:07)
[2018-07-23] MEDS ORDERED: DILTIAZEM 125 MG/25 ML IV (CARDIZEM) IV ONE (05:08)
[2018-07-23] MEDS ORDERED: NS (IVPB) 100 ML ONE (05:09)
--- NOTE | 2018-07-23 05:10 | NUR ---
PT TRANSFERRED TO ICU-9. HOUSE SUP TO GIVE IV DIGOXIN. REPORT GIVEN TO JOHN ORTIZ.
--- NOTE | 2018-07-23 05:20 | NUR ---
CARDIZEM DRIP STARTED AT 10 MG/HR
[2018-07-23] MEDS ORDERED: DILTIAZEM IV FOR DRIP 125 MG in NS (IVPB) 100 ML IV SCH (05:30)
[2018-07-23 05:39] LABS: BASOPHILS % (AUTO) 0 % (0-10); EOSINOPHILS % (AUTO) 0 % (0-10); HEMATOCRIT 33 % (35-52); HEMOGLOBIN 11.1 G/DL (11.5-16.0); LYMPHOCYTES # (AUTO) 0.4 X 10^3 (1.0-4.0); LYMPHOCYTES % (AUTO) 4 % (12-44); MEAN CORPUSCULAR HEMOGLOBIN 29 PG (25-34); MEAN CORPUSCULAR HGB CONC 34 G/DL (32-36); MEAN CORPUSCULAR VOLUME 87 FL (80-99); MEAN PLATELET VOLUME 11.7 FL (7.4-10.4); MONOCYTES # (AUTO) 1.1 X 10^3 (0.0-1.0); MONOCYTES % (AUTO) 10 % (0-12); NEUTROPHILS # (AUTO) 9.2 X 10^3 (1.8-7.8); NEUTROPHILS % (AUTO) 86 % (42-75); PLATELET COUNT 104 10^3/uL (130-400); RED CELL DISTRIBUTION WIDTH 14.7 % (10.0-14.5); WHITE BLOOD COUNT 10.8 10^3/uL (4.3-11.0)
[2018-07-23 05:59] LABS: ALBUMIN 3.3 GM/DL (3.2-4.5); BILIRUBIN,TOTAL 2.2 MG/DL (0.1-1.0); CALCIUM 8.1 MG/DL (8.5-10.1); CREATININE SERUM 2.94 MG/DL (0.60-1.30); POTASSIUM 3.4 MMOL/L (3.6-5.0)
--- NOTE | 2018-07-23 06:00 | NUR ---
PT NOW IN SR
[2018-07-23] MEDS: inSUlin ASPART (NovoLOG) 1 UNIT/0.01 ML (CHARGE PER UNIT) SC SCH ×3 (06:20→18:29)
--- NOTE | 2018-07-23 07:07 | Cardiology Progress Note ---
Subjective Date Seen by Provider: July 23, 2018 Time Seen by Provider: 07:04 Subjective/Events-last exam patient was transferred to the intensive care unit early this morning. She is feeling better. Reporting no new complaint, had transient episode of tachycardia that has resolved at this point Review of Systems General: No Chills, No Night Sweats, No Fatigue, No Malaise, No Appetite, No Other HEENT: No Head Aches, No Visual Changes, No Eye Pain, No Ear Pain, No Dysphasia , No Sinus Congestion, No Post Nasal Drip, No Sore Throat, No Other Pulmonary: No Dyspnea, No Cough, No Pleuritic Chest Pain, No Other Cardiovascular: No: Chest Pain, Palpitations, Orthopnea, Paroxysmal Noc. Dyspnea, Edema, Lt Headedness, Other Focused Exam Lactate Level 07/21/18 15:15: Lactic Acid Level 3.97*H 07/21/18 17:19: Lactic Acid Level 3.73*H Objective-Cardiology Exam Last Set of Vital Signs Vital Signs 07/23/18 07/23/18 05:15 06:45 Temp 98.3 Pulse 73 Resp 21 B/P (MAP) 146/68 (94) Pulse Ox 93 O2 Delivery Room Air Capillary Refill : Less Than 3 Seconds I&O Intake and Output 07/23/18 00:00 Intake Total 3120 ml Output Total 2800 ml Balance 320 ml Intake Oral 0 ml IV Total 3120 ml Output Urine Total 2800 ml # Bowel Movements 1 General: Alert, Oriented X3, Cooperative HEENT: Atraumatic, PERRLA Neck: Supple, No JVD, No Thyromegaly Lungs: Clear to Auscultation, Normal Air Movement Heart: Regular Rate, Normal S1, Normal S2, No Murmurs Abdomen: Soft, No Tenderness, No Hepatosplenomegaly, No Masses Extremities: No Clubbing, No Cyanosis, No Edema, Normal Pulses, No Tenderness/ Swelling Skin: No Rashes, No Breakdown, No Significant Lesion Neuro: Normal Gait, Normal Speech, Strength at 5/5 X4 Ext, Normal Tone, Sensation Intact Psych/Mental Status: Mental Status NL, Mood NL Results Lab Laboratory Tests 07/23/18 05:05 A/P-Cardiology Admission Diagnosis Acute pancreatitis Acute renal failure CAD HTN Assessment/Plan Acute pancreatitis, had transient normal pancreatic enzyme probably lab error, still elevated at this time. Continue with supportive care and monitor closely Paroxysmal supraventricular tachycardia, had multiple episodes, probably atrial tachycardia responsive to IV beta blockers. She was given a dose of digoxin last night due to episode of tachycardia. Continue to monitor. Acute renal failure on chronic kidney disease stage IV, receiving IV fluid, avoid the use of DAVID inhibitor and/or ARB at this time. Metabolic acidosis, lactic acidosis, secondary to pancreatitis. Dehydration, electrolyte imbalance, being corrected. History of CVA, had an acute CVA in March 2018 with left MCA distribution thrombus, received TPA on March 08, 2018 noted to have small intracranial bleed on March 10, 2018, better at this time. No residual deficit was reported. Maintained on Plavix and ASA. Coronary artery disease, history of non-ST elevation myocardial infarction with elevated troponin of 1.5, conservative management in [facility], history of CABG, review of her record showed history of cardiac catheterization using multiple stents, the mid RCA had a Cypher 3.528 and 2.523, distal RCA reported Cypher 2.528, the RCA has another report of a stent done in May 2010 with Xience 3.5 x 38, the LAD there are report of a stent done in 2001 using MultiLink 2.75 25 and in 2007 Xience 3.5 time 18. Stress test April 2018 showed breast attenuation with fixed defect involving the basal to mid anterolateral and inferolateral wall, stress score 14, SDS 4, ejection fraction 44 percent, currently asymptomatic. Continue with conservative management at this time and will consider catheterization if she become symptomatic Congestive heart failure, chronic compensated left ventricular systolic dysfunction, ischemic in nature, ejection fraction 35-40 percent. Continue on beta sirisha. DAVID-I or ARB contraindicated secondary to renal failure. Dual-chamber pacemaker implanted on March 01, 2013, send James done by Dr. Barrientos using ACCENT DR RF 2210, last checkup was done on April 10, 2018 showing longevity 7.5 years, atrial impedance is 400, ventricular impedance 460 , P-wave 2.4 mV, R wave more than 12 mV, threshold for atrium 0.62 at 0.6 ms, ventricle 0.75 at 0.4 ms, atrial pacing 63 percent, ventricular pacing less than 1 percent. Continue on the same setting and monitor History of syncope with questionable hypotensive episode and vasovagal episode. Currently severely hypertension. Labile hypertension with episode of severe hypertension, restart Toprol XL and continue to monitor. Hyperlipidemia maintained on Lipitor and Zetia as outpatient. I will discontinue at this time secondary to pancreatitis. Hypothyroidism, managed by primary care physician Clinical Quality Measures DVT/VTE Risk/Contraindication: Risk Factor Score Per Nursin RFS Level Per Nursing on Admit: 3=High JAC MABRY MD July 23, 2018 07:07
[2018-07-23] MEDS ORDERED: LACTATED RINGERS 1,000 ML IV SCH (09:00)
--- NOTE | 2018-07-23 09:11 | Pulmonary Consultation ---
History of Present Illness History of Present Illness Date of Consultation 07/23/18 09:06 Time Seen by Provider: 10:57 Date of Admission Reason for Visit: CAD History of Present Illness 78yo with hx of CAD, CVA, HTN presented to ED secondary to severe abdominal pain. She was found to have acute pancreatitis, acute renal failure, and dehydration. Pt was admitted to 4th floor however transferred to ICU secondary to SVT. Pt was having worsening SOB last night and was given Lasix x 1. Today her kidney failure is worse and her pancreatic enzymes are worse. Dr. Borges is consulting me for ICU management. Allergies and Home Medications Allergies Coded Allergies: RIAZMarian Known Allergies (Unverified Allergy, Mild, 07/03/08) Home Medications Aspirin 81 Mg Tablet.dr, 81 MG PO DAILY, (Reported) Atorvastatin Calcium 40 Mg Tablet, 40 MG PO HS, (Reported) Bisacodyl 5 Mg Tablet.dr, 5 MG PO DAILY PRN for CONSTIPATION-4TH LINE, (Reported ) Cholecalciferol (Vitamin D3) 5,000 Unit Capsule, 5,000 UNIT PO DAILY, (Reported) Citalopram Hydrobromide 20 Mg Tablet, 20 MG PO DAILY, (Reported) Clopidogrel Bisulfate 75 Mg Tablet, 75 MG PO DAILY, (Reported) Ezetimibe 10 Mg Tablet, 10 MG PO HS, (Reported) Famotidine 20 Mg Tablet, 20 MG PO DAILY, (Reported) Hydrochlorothiazide 25 Mg Tablet, 25 MG PO DAILY, (Reported) Levothyroxine Sodium 25 Mcg Tablet, 25 MCG PO DAILY, (Reported) Lisinopril 20 Mg Tablet, 20 MG PO DAILY, (Reported) Metformin HCl 500 Mg Tablet, 500 MG PO DAILY, (Reported) Metoprolol Succinate 100 Mg Tab.er.24h, 100 MG PO DAILY, (Reported) Tramadol HCl 50 Mg Tablet, 50 MG PO Q6H PRN for PAIN-MODERATE, (Reported) Past Pxjxbrh-Fbfexi-Uyszjd Hx Past Med/Social Hx: Reviewed Nursing Past Med/Soc Hx Patient Social History Alcohol Use: Denies Use Recreational Drug Use: No Smoking Status: Unknown if Ever Smoked Recent Foreign Travel: No Contact w/Someone Who Travel: No Recent Infectious Disease Expo: No Recent Hopitalizations: No Physical Abuse: No Sexual Abuse: No Mistreated: No Fear: No Immunizations Up To Date Date of Pneumonia Vaccine: Dec 16, 2016 Date of Influenza Vaccine: Mar 11, 2018 Seasonal Allergies Seasonal Allergies: No Past Medical History Surgeries: Yes (Knee surgery bilt) Cardiac, CABG, Eye Surgery, Hysterectomy, Orthopedic, Pacemaker Respiratory: No Currently Using CPAP: No Currently Using BIPAP: No Cardiac: Yes (STENTS 20 PACEMAKER, CHF) Coronary Artery Disease, High Cholesterol, Hypertension Neurological: Yes (aphasia/ataxia, Hemiplegia, 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 Diabetes Review of Systems Time Seen by Provider: 09:21 Constitutional: Sweats, Weakness, Malaise; No: Fever, Chills Eyes: No: Pain, Vision change, Conjunctivae inflammation, Eyelid inflammation, Other, Redness ENT: No: Ear pain, Ear discharge, Nose pain, Nose discharge, Nose congestion, Mouth pain, Mouth swelling, Throat pain, Throat swelling, Other Respiratory: Cough, Dry, Shortness of breath, SOB with excertion; No: Wheezing , Hemoptysis, Pleuritic Pain, Sputum, Wheezing, Other Cardiovascular: Orthopnea, Paroxysmal Noc. Dyspnea; No: Chest Pain, Palpitations, Edema, Lt Headedness, Other Gastrointestinal: Nausea, Abdominal Pain, Constipation; No: Vomiting, Diarrhea Sepsis Event Evaluation Height, Weight, BMI Height: 5'0.00" Weight: 147lbs. 0.5oz. 66.121845in; 28.7 BMI Method:Stated Exam Exam Vital Signs Date Time Temp Pulse Resp B/P (MAP) Pulse Ox O2 Delivery O2 Flow Rate FiO2 07/23/18 08:48 96.4 07/23/18 08:00 70 27 154/61 (92) 95 Room Air 07/23/18 07:00 75 26 156/71 (99) 94 Room Air 07/23/18 07:00 75 07/23/18 06:45 73 21 146/68 (94) 93 Room Air 07/23/18 06:30 74 15 139/57 (84) 93 Room Air 07/23/18 06:15 81 28 134/65 (88) 93 Room Air 07/23/18 06:00 81 30 120/67 (84) 93 Room Air 07/23/18 05:45 154 26 122/82 (95) 94 Room Air 07/23/18 05:30 154 14 107/79 (88) 95 Room Air 07/23/18 05:25 156 07/23/18 05:25 156 07/23/18 05:15 98.3 156 26 140/85 (103) 96 Room Air 07/23/18 05:08 152 07/23/18 04:01 98.0 162 24 134/81 (98) 98 Room Air 07/23/18 01:00 84 07/23/18 00:11 98.7 163 22 133/85 (101) 97 Room Air 07/23/18 00:00 83 98 07/22/18 20:00 99.3 78 22 160/86 (110) 96 Room Air 07/22/18 20:00 Room Air 07/22/18 19:00 82 07/22/18 15:51 98.6 90 22 165/73 (103) 96 Room Air 07/22/18 12:59 89 07/22/18 12:00 98.4 90 22 142/64 (90) 94 Room Air I & O 07/23/18 07:00 Intake Total 2120 ml Output Total 3050 ml Balance -930 ml Height & Weight Height: 5'0.00" Weight: 147lbs. 0.5oz. 66.065729qs; 28.7 BMI Method:Stated General Appearance: No Apparent Distress, WD/WN HEENT: TMs Normal, Normal ENT Inspection Neck: Non Tender, Supple Respiratory: Chest Non Tender, Lungs Clear, Normal Breath Sounds (right lung), No Accessory Muscle Use, No Respiratory Distress, Decreased Breath Sounds (left base with crackles) Cardiovascular: Regular Rate, Rhythm, No Edema, No Murmur, Normal Peripheral Pulses Capillary Refill: Less Than 3 Seconds Peripheral Pulses: 2+ Dorsalis Pedis (R), 2+ Left Dors-Pedis (L), 2+ Radial Pulses (R), 2+ Radial Pulses (L) Gastrointestinal: normal bowel sounds, soft, tenderness (diffuse upper quadrant abdominal pain); No mass Extremity: Non Tender, No Calf Tenderness 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, Oriented x3, gas leak inspector helper II-XII Norm as Tested Results Lab Laboratory Tests 07/21/18 15:15 07/22/18 04:35 07/23/18 05:05 Assessment/Plan Assessment/Plan Pancreatitis -IVF -Amylase/lipase increased - I am going to increase IVF and give a liter bolus of LR Metabolic lactic acidosis -IVF -Repeat lactic acid Cholelithiasis -Surgery following Acute renal failure -Increase IVF Intravascular dehydration -Increase IVF SVT -Cardiology following Hypokalemia -Replace -Check Mg, Phos CAD I discussed with Dr. Jean who agrees with increasing IVF. He is planning on taking her to surgery after she is more stable. SINCERE DALTON DO July 23, 2018 09:11
[2018-07-23] MEDS: LACTATED RINGERS 1,000 ML IV SCH ×4 (09:23→22:57)
[2018-07-23] MEDS: POTASSIUM CL 10MEQ/50ML IVPB 50 ML IV SCH ×4 (09:26→12:08)
[2018-07-23 09:43] LABS: PHOSPHORUS 2.9 MG/DL (2.3-4.7)
[2018-07-23] MEDS: MAGNESIUM 1 GM/100 ML IVPB 100 ML IV SCH ×6 (11:12→15:46)
--- NOTE | 2018-07-23 13:17 | Progress Note ---
Subjective Time Seen by a Provider: 13:04 Subjective/Events-last exam Pt seen and examined, denies abdominal pain and no trouble breathing. Pt is hungry, still npo. Review of Systems General: No Chills, No Night Sweats Pulmonary: No Dyspnea, No Cough Cardiovascular: No: Palpitations Gastrointestinal: No: Nausea, Vomiting, Abdominal Pain Focused Exam Lactate Level 07/21/18 15:15: Lactic Acid Level 3.97*H 07/21/18 17:19: Lactic Acid Level 3.73*H 07/23/18 09:19: Lactic Acid Level 0.84 Lactic Acid Level Laboratory Tests Test 07/23/18 09:19 Lactic Acid Level 0.84 MMOL/L (0.50-2.00) Objective Exam Vital Signs Date Time Temp Pulse Resp B/P (MAP) Pulse Ox O2 Delivery O2 Flow Rate FiO2 07/23/18 12:10 Room Air 07/23/18 12:00 65 31 129/52 (77) 100 Room Air 07/23/18 11:00 68 46 149/66 (93) 100 Room Air 07/23/18 10:56 98.7 07/23/18 10:00 69 14 150/93 (112) 95 Room Air 07/23/18 09:00 73 14 152/62 (92) 92 Room Air 07/23/18 08:48 96.4 07/23/18 08:00 70 27 154/61 (92) 95 Room Air 07/23/18 08:00 Room Air 07/23/18 07:00 75 26 156/71 (99) 94 Room Air 07/23/18 07:00 75 07/23/18 06:45 73 21 146/68 (94) 93 Room Air 07/23/18 06:30 74 15 139/57 (84) 93 Room Air 07/23/18 06:15 81 28 134/65 (88) 93 Room Air 07/23/18 06:00 81 30 120/67 (84) 93 Room Air 07/23/18 05:45 154 26 122/82 (95) 94 Room Air 07/23/18 05:30 154 14 107/79 (88) 95 Room Air 07/23/18 05:25 156 07/23/18 05:25 156 07/23/18 05:15 98.3 156 26 140/85 (103) 96 Room Air 07/23/18 05:08 152 07/23/18 04:01 98.0 162 24 134/81 (98) 98 Room Air 07/23/18 01:00 84 07/23/18 00:11 98.7 163 22 133/85 (101) 97 Room Air 07/23/18 00:00 83 98 07/22/18 20:00 99.3 78 22 160/86 (110) 96 Room Air 07/22/18 20:00 Room Air 07/22/18 19:00 82 07/22/18 15:51 98.6 90 22 165/73 (103) 96 Room Air I & O 07/23/18 07:00 Intake Total 2120 ml Output Total 3050 ml Balance -930 ml Capillary Refill : Less Than 3 Seconds General Appearance: No Apparent Distress, WD/WN HEENT: Other (edentulous) Neck: Non Tender, Supple Respiratory: Chest Non Tender, Lungs Clear, Normal Breath Sounds, No Accessory Muscle Use, No Respiratory Distress Cardiovascular: Regular Rate, Rhythm, No Edema, No Murmur, Normal Peripheral Pulses Peripheral Pulses: 2+ Dorsalis Pedis (R), 2+ Left Dors-Pedis (L), 2+ Radial Pulses (R), 2+ Radial Pulses (L) Gastrointestinal: normal bowel sounds, non tender, soft, no organomegaly; No mass Extremity: Non Tender, No Calf Tenderness 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, registered radiologic technologist II-XII Norm as Tested Results Lab Laboratory Tests 07/22/18 14:05: Amylase Level 42, Lipase 19 07/22/18 18:15: Glucometer 224H 07/22/18 23:51: Glucometer 167H 07/23/18 05:05: Amylase Level 257H, Lipase 208H, White Blood Count 10.8, Red Blood Count 3.81L, Hemoglobin 11.1L, Hematocrit 33L, Mean Corpuscular Volume 87, Mean Corpuscular Hemoglobin 29, Mean Corpuscular Hemoglobin Concent 34, Red Cell Distribution Width 14.7H, Platelet Count 104L, Mean Platelet Volume 11.7H, Neutrophils (%) ( Auto) 86H, Lymphocytes (%) (Auto) 4L, Monocytes (%) (Auto) 10, Eosinophils (%) ( Auto) 0, Basophils (%) (Auto) 0, Neutrophils # (Auto) 9.2H, Lymphocytes # (Auto ) 0.4L, Monocytes # (Auto) 1.1H, Eosinophils # (Auto) 0.0, Basophils # (Auto) 0.0, Sodium Level 145, Potassium Level 3.4L, Chloride Level 113H, Carbon Dioxide Level 14L, Anion Gap 18H, Blood Urea Nitrogen 71H, Creatinine 2.94#H, Estimat Glomerular Filtration Rate 15, BUN/Creatinine Ratio 24, Glucose Level 210H, Calcium Level 8.1L, Corrected Calcium 8.7, Total Bilirubin 2.2H, Aspartate Amino Transf (AST/SGOT) 50H, Alanine Aminotransferase (ALT/SGPT) 40, Alkaline Phosphatase 61, Total Protein 6.0L, Albumin 3.3, Thyroid Stimulating Hormone (TSH) 1.25 07/23/18 09:19: Lactic Acid Level 0.84, Phosphorus Level 2.9, Magnesium Level 1.0*L 07/23/18 11:02: Glucometer 231H Microbiology 07/21/18 Blood Culture - Preliminary, Resulted No growth 07/21/18 Urine Culture - Final, Complete NO GROWTH Assessment/Plan Assessment/Plan Assessment/Plan 1. Acute Pancreatitis 2. Acute Renal Failure - most likely secondary to #3 3. Dehydration 4. Cholelithiasis Plan Lap Maida for tomorrow, did discuss the procedure with pt and will go over with her POA. Risks and complications not limited to pain, bleeding, infection , scar, damage to bowel or bile duct and need for further procedure. Will get consent and make sure ABX are ordered. Clinical Quality Measures DVT/VTE Risk/Contraindication: Risk Factor Score Per Nursin RFS Level Per Nursing on Admit: 3=High СВЕТЛАНА LOMBARDI DO July 23, 2018 13:17
--- NOTE | 2018-07-23 14:13 | NUR ---
ATTEMPTED TO CALL PT'S SON TITI, SISTER GARY, AND HEIDY BIGGS IN ATTEMPT TO OBTAIN SX CONSENT. NO ANSWER ON ANY PHONE. THEN CALLED THEODORA MEJIAS TO OBTAIN ADDITIONAL CONTACT INFO, NO FURTHER PHONE NUMBERS LISTED W/ NH.
--- NOTE | 2018-07-23 17:09 | NUR ---
ATTEMPTED TO CALLED PT'S SON TITI --NO ANSWER, NO VOICEMAIL SET UP. THEN ATTEMPTED TO CALL HEIDY BIGGS, NO ANSWER, VOICEMAIL LEFT FOR CALL BACK.
--- NOTE | 2018-07-23 22:09 | Progress Note (SOAP) ---
Subjective Subjective/Events-last exam Patient states that she is feeling better. Denies any chest pain or palpitations. Review of Systems Date Seen by Provider: July 23, 2018 Time Seen by Provider: 09:00 Pulmonary: No Dyspnea, No Cough Cardiovascular: No: Chest Pain, Palpitations Gastrointestinal: No: Nausea, Vomiting, Abdominal Pain Focused Exam Lactate Level 07/21/18 15:15: Lactic Acid Level 3.97*H 07/21/18 17:19: Lactic Acid Level 3.73*H 07/23/18 09:19: Lactic Acid Level 0.84 Objective Exam Last Set of Vital Signs Vital Signs Date Time Temp Pulse Resp B/P (MAP) Pulse Ox O2 Delivery O2 Flow Rate FiO2 07/23/18 21:00 65 171/69 (103) 99 Room Air 07/23/18 16:00 97.0 07/23/18 12:00 31 Capillary Refill : Less Than 3 Seconds I&O Intake and Output 07/23/18 00:00 Intake Total 3120 ml Output Total 2800 ml Balance 320 ml Intake Oral 0 ml IV Total 3120 ml Output Urine Total 2800 ml # Bowel Movements 1 General: Alert, No Acute Distress Lungs: Clear to Auscultation, Normal Air Movement Heart: Regular Rate, No Murmurs Abdomen: Normal Bowel Sounds, Soft, No Tenderness, No Masses Extremities: No Edema, No Tenderness/Swelling Skin: No Rashes, No Breakdown Results/Procedures Lab Laboratory Tests 07/22/18 23:51: Glucometer 167H 07/23/18 05:05: White Blood Count 10.8, Red Blood Count 3.81L, Hemoglobin 11.1L, Hematocrit 33L , Mean Corpuscular Volume 87, Mean Corpuscular Hemoglobin 29, Mean Corpuscular Hemoglobin Concent 34, Red Cell Distribution Width 14.7H, Platelet Count 104L, Mean Platelet Volume 11.7H, Neutrophils (%) (Auto) 86H, Lymphocytes (%) (Auto) 4L, Monocytes (%) (Auto) 10, Eosinophils (%) (Auto) 0, Basophils (%) (Auto) 0, Neutrophils # (Auto) 9.2H, Lymphocytes # (Auto) 0.4L, Monocytes # (Auto) 1.1H, Eosinophils # (Auto) 0.0, Basophils # (Auto) 0.0, Sodium Level 145, Potassium Level 3.4L, Chloride Level 113H, Carbon Dioxide Level 14L, Anion Gap 18H, Blood Urea Nitrogen 71H, Creatinine 2.94#H, Estimat Glomerular Filtration Rate 15, BUN /Creatinine Ratio 24, Glucose Level 210H, Calcium Level 8.1L, Corrected Calcium 8.7, Total Bilirubin 2.2H, Aspartate Amino Transf (AST/SGOT) 50H, Alanine Aminotransferase (ALT/SGPT) 40, Alkaline Phosphatase 61, Total Protein 6.0L, Albumin 3.3, Amylase Level 257H, Lipase 208H, Thyroid Stimulating Hormone (TSH) 1.25 07/23/18 09:19: Lactic Acid Level 0.84, Phosphorus Level 2.9, Magnesium Level 1.0*L 07/23/18 11:02: Glucometer 231H 07/23/18 17:49: Glucometer 290H 07/23/18 19:09: Magnesium Level 3.3H Microbiology 07/21/18 Blood Culture - Preliminary, Resulted No growth 07/21/18 Urine Culture - Final, Complete NO GROWTH Assessment/Plan Assessment/Plan (1) Pancreatitis Status: Acute Assessment & Plan: - General Surgery consulted, Patient NPO, IVFs 150cc/hr and IV pain meds 07/23: Pain improving, labs improving Qualifiers: Qualified Codes: K85.10 - Biliary acute pancreatitis without necrosis or infection (2) Cholelithiasis Status: Acute Assessment & Plan: - General surgery consulted, patient likely needs surgery during this admission 07/23: Plan for [facility] in AM Qualifiers: Qualified Codes: K80.00 - Calculus of gallbladder with acute cholecystitis without obstruction (3) Acute kidney failure Status: Acute Assessment & Plan: - likely 2/2 dehydration, trending down, will continue to monitor 07/23: Improving, will continue to monitor (4) Lactic acidosis Status: Acute (5) Elevated LFTs Status: Acute (6) SVT (supraventricular tachycardia) Status: Acute Assessment & Plan: - Cardiology consulted, resolved with 5mg IV Lopressor 07/23: Started on meds for rate control (7) CAD (coronary artery disease) Status: Chronic Qualifiers: Qualified Codes: I25.10 - Atherosclerotic heart disease of [place] coronary artery without angina pectoris Clinical Quality Measures DVT/VTE Risk/Contraindication: Risk Factor Score Per Nursin RFS Level Per Nursing on Admit: 3=High FELIBERTO SANDOVAL MD July 23, 2018 22:08
[2018-07-24] VITALS (28 sets, daily range): BP systolic 133–177; BP diastolic 63–90
[2018-07-24] MEDS: PIPERACILLIN/TAZO 4.5 GM/NS 100 ML IV SCH ×4 (00:17→13:38)
[2018-07-24] MEDS: meTOprolol 5 MG/5 ML (LOPRESSOR) VIAL IV SCH ×6 (00:17→21:28)
[2018-07-24] MEDS: inSUlin ASPART (NovoLOG) 1 UNIT/0.01 ML (CHARGE PER UNIT) SC SCH ×4 (00:26→17:23)
[2018-07-24 03:08] LABS: BASOPHILS % (AUTO) 0 % (0-10); EOSINOPHILS % (AUTO) 0 % (0-10); HEMATOCRIT 30 % (35-52); HEMOGLOBIN 10.4 G/DL (11.5-16.0); LYMPHOCYTES # (AUTO) 0.6 X 10^3 (1.0-4.0); LYMPHOCYTES % (AUTO) 7 % (12-44); MEAN CORPUSCULAR HEMOGLOBIN 30 PG (25-34); MEAN CORPUSCULAR HGB CONC 34 G/DL (32-36); MEAN CORPUSCULAR VOLUME 86 FL (80-99); MEAN PLATELET VOLUME 10.4 FL (7.4-10.4); MONOCYTES # (AUTO) 1.1 X 10^3 (0.0-1.0); MONOCYTES % (AUTO) 12 % (0-12); NEUTROPHILS # (AUTO) 7.4 X 10^3 (1.8-7.8); NEUTROPHILS % (AUTO) 81 % (42-75); PLATELET COUNT 133 10^3/uL (130-400); RED CELL DISTRIBUTION WIDTH 14.8 % (10.0-14.5); WHITE BLOOD COUNT 9.1 10^3/uL (4.3-11.0)
[2018-07-24 03:25] LABS: CALCIUM 8.8 MG/DL (8.5-10.1); CREATININE SERUM 2.35 MG/DL (0.60-1.30); MAGNESIUM 2.6 MG/DL (1.8-2.4); PHOSPHORUS 1.6 MG/DL (2.3-4.7)
[2018-07-24] MEDS: POTASSIUM CL 10MEQ/50ML IVPB 50 ML IV SCH ×3 (05:29→08:27)
[2018-07-24] MEDS: MAGNESIUM 1 GM/100 ML IVPB 100 ML IV SCH (05:29)
[2018-07-24] MEDS: KCL 20 MEQ TAB (K-DUR) PO SCH (05:29)
[2018-07-24] MEDS ORDERED: POTASSIUM PHOSPHATE INJ 30 MM in NS (IVPB) 250 ML IV ONE (06:30)
--- NOTE | 2018-07-24 06:31 | Pulmonary Progress Note ---
Subjective Time Seen by a Provider: 06:35 Subjective/Events-last exam Dr. Jean is planning on taking pt to surgery today. Pt appears stable cur rently Sepsis Event Evaluation Height, Weight, BMI Height: 5'0.00" Weight: 147lbs. 0.5oz. 66.831328py; 28.7 BMI Method:Stated Focused Exam Lactate Level 07/21/18 15:15: Lactic Acid Level 3.97*H 07/21/18 17:19: Lactic Acid Level 3.73*H 07/23/18 09:19: Lactic Acid Level 0.84 Exam Exam Vital Signs Date Time Temp Pulse Resp B/P (MAP) Pulse Ox O2 Delivery O2 Flow Rate FiO2 07/24/18 06:00 71 20 177/87 (117) 96 Room Air 07/24/18 05:00 77 19 168/81 (110) 94 Room Air 07/24/18 04:00 74 21 165/68 (100) 94 Room Air 07/24/18 03:00 68 20 174/78 (110) 94 Room Air 07/24/18 02:00 69 25 170/90 (116) 95 Room Air 07/24/18 01:00 69 21 172/70 (104) 95 Room Air 07/24/18 01:00 76 07/24/18 00:00 72 165/75 (105) 99 Room Air 07/23/18 23:00 72 172/68 (102) 100 Room Air 07/23/18 22:00 82 164/105 (124) 100 Room Air 07/23/18 21:00 65 171/69 (103) 99 Room Air 07/23/18 20:00 Room Air 07/23/18 20:00 67 168/62 (97) 99 Room Air 07/23/18 19:00 65 07/23/18 19:00 65 155/65 (95) 99 Room Air 07/23/18 18:00 66 150/57 (88) 100 Room Air 07/23/18 17:00 65 137/58 (84) 100 Room Air 07/23/18 16:00 69 142/56 (84) 99 Room Air 07/23/18 16:00 97.0 07/23/18 15:14 Room Air 07/23/18 15:00 66 138/55 (82) 99 Room Air 07/23/18 14:00 65 134/50 (78) 100 Room Air 07/23/18 13:00 65 137/51 (79) 98 Room Air 07/23/18 13:00 65 07/23/18 12:10 Room Air 07/23/18 12:00 65 31 129/52 (77) 100 Room Air 07/23/18 11:00 68 46 149/66 (93) 100 Room Air 07/23/18 10:56 98.7 07/23/18 10:00 69 14 150/93 (112) 95 Room Air 07/23/18 09:00 73 14 152/62 (92) 92 Room Air 07/23/18 08:48 96.4 07/23/18 08:00 70 27 154/61 (92) 95 Room Air 07/23/18 08:00 Room Air 07/23/18 07:00 75 26 156/71 (99) 94 Room Air 07/23/18 07:00 75 07/23/18 06:45 73 21 146/68 (94) 93 Room Air 07/23/18 06:30 74 15 139/57 (84) 93 Room Air I & O 07/24/18 07:00 Intake Total 3770 ml Output Total 3850 ml Balance -80 ml Height & Weight Height: 5'0.00" Weight: 147lbs. 0.5oz. 66.266121nh; 28.7 BMI Method:Stated General Appearance: No Apparent Distress, WD/WN HEENT: Other (edentulous) Neck: Non Tender, Supple Respiratory: Chest Non Tender, Lungs Clear, Normal Breath Sounds, No Accessory Muscle Use, No Respiratory Distress Cardiovascular: Regular Rate, Rhythm, No Edema, No Murmur, Normal Peripheral Pulses Capillary Refill: Less Than 3 Seconds Peripheral Pulses: 2+ Dorsalis Pedis (R), 2+ Left Dors-Pedis (L), 2+ Radial Pulses (R), 2+ Radial Pulses (L) Gastrointestinal: normal bowel sounds, non tender, soft, no organomegaly; No mass Extremity: Non Tender, No Calf Tenderness 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, supervisor salvage II-XII Norm as Tested Results Lab Laboratory Tests 07/23/18 05:05 07/24/18 03:00 Assessment/Plan Assessment/Plan Pancreatitis -IVF- Currently LR at 150 Hypernatremia -Change LR to 1/2 NS at 150 Metabolic lactic acidosis -IVF -Repeat lactic acid Cholelithiasis -Surgery following -Plan is for surgery today Acute renal failure -Increase IVF Intravascular dehydration -Increase IVF SVT -Cardiology following HTN -Add hydralazine PRN Hypokalemia, hypopphos -Replace CAD SINCERE DALTON DO July 24, 2018 06:31
[2018-07-24] MEDS ORDERED: hydrALAZINE (APESOLINE) 20 MG/ML VIAL IV PRN (06:45)
[2018-07-24] MEDS: 1/2 NS IV SOLUTION 1,000 ML IV SCH ×3 (07:30→21:28)
--- NOTE | 2018-07-24 08:02 | Diagnostic Imaging Report ---
INDICATION: Pancreatitis. Cholelithiasis. Acute renal failure. COMPARISON: 07/21/2018 FINDINGS: Single frontal radiographic view of the chest was obtained and demonstrates low inspiratory volumes with crowding of central hilar structures. Pulmonary vasculature appears slightly more prominent. There are increased alveolar opacities within both lung bases as well. There is no large effusion or pneumothorax. Sternotomy wires and left-sided dual-lead pacemaker noted. Bony structures show no gross acute abnormalities. IMPRESSION: 1. Persistent cardiomegaly. Pulmonary vasculature does appear somewhat prominent concerning for developing congestion. This, however, may be accentuated by low inspiratory volumes. 2. Low lung volumes with probable increasing bibasilar atelectasis. Dictated by: Dictated on workstation # [id number]
--- NOTE | 2018-07-24 09:20 | Progress Note-Cardiology ---
Cardiology SOAP Progress Note Subjective: No cp or palp or syncope. Gen malaise present. Abd discomfort present Objective: I&O/Vital Signs 07/24/18 07/24/18 07/24/18 07/24/18 05:00 06:00 07:00 07:12 Pulse 77 71 75 80 Resp 19 20 26 B/P (MAP) 168/81 (110) 177/87 (117) 164/82 (109) Pulse Ox 94 96 95 O2 Delivery Room Air Room Air Room Air 07/24/18 07/24/18 07/24/18 07/24/18 07:16 08:00 08:05 09:00 Temp 99.7 Pulse 75 80 Resp 21 19 B/P (MAP) 162/64 (96) 175/74 (107) Pulse Ox 94 94 O2 Delivery Room Air Room Air Room Air 07/24/18 07/24/18 07/24/18 07/24/18 10:00 12:39 12:40 12:50 Temp 97.7 97.7 Pulse 89 Resp 20 22 22 24 B/P (MAP) 159/78 (105) Pulse Ox 95 100 100 100 O2 Delivery Room Air OxyMask OxyMask OxyMask O2 Flow Rate 10 10 4 07/24/18 07/24/18 07/24/18 07/24/18 13:00 13:10 13:20 13:30 Temp 99.0 Resp 24 23 23 23 Pulse Ox 100 100 96 94 O2 Delivery OxyMask Room Air Room Air Room Air O2 Flow Rate 4 07/24/18 07/24/18 07/24/18 07/24/18 13:30 13:45 13:51 13:56 Temp 98.2 Pulse 75 O2 Delivery Room Air Nasal Cannula O2 Flow Rate 2.00 07/24/18 07/24/18 07/24/18 14:00 15:08 15:56 Temp 98.2 Pulse 73 Resp 18 B/P (MAP) 154/73 (100) Pulse Ox 98 O2 Delivery Nasal Cannula Room Air O2 Flow Rate 2.00 07/24/18 00:00 Intake Total 2820 ml Output Total 2250 ml Balance 570 ml Weight (Pounds): 147 Weight (Ounces): 0.5 Weight (Calculated Kilograms): 66.881356 Constitutional: well-developed, well-nourished, other (appropriately responsive) Respiratory: No accessory muscle use; other (good bilat air entry) Cardiovascular: regular rate-rhythm, S1 and S2, systolic murmur (soft RUBA at card base) Gastrointestional: tender; No guarding; audible bowel sounds Extremities: No clubbing, No cyanosis, No significant edema Neurologic/Psychiatric: grossly intact, power is 5/5 both on sides Skin: No rash on exposed areas, No ulcerations on exposed areas Results/Procedures: Labs Laboratory Tests 07/23/18 17:49: Glucometer 290H 07/23/18 19:09: Magnesium Level 3.3H 07/24/18 00:24: Glucometer 214H 07/24/18 03:00: Magnesium Level 2.6H, White Blood Count 9.1, Red Blood Count 3.52L, Hemoglobin 10.4L, Hematocrit 30L, Mean Corpuscular Volume 86, Mean Corpuscular Hemoglobin 30, Mean Corpuscular Hemoglobin Concent 34, Red Cell Distribution Width 14.8H, Platelet Count 133, Mean Platelet Volume 10.4, Neutrophils (%) (Auto) 81H, Lymphocytes (%) (Auto) 7L, Monocytes (%) (Auto) 12, Eosinophils (%) (Auto) 0, Basophils (%) (Auto) 0, Neutrophils # (Auto) 7.4, Lymphocytes # (Auto) 0.6L, Monocytes # (Auto) 1.1H, Eosinophils # (Auto) 0.0, Basophils # (Auto) 0.0, Sodium Level 147H, Potassium Level 3.0L, Chloride Level 111H, Carbon Dioxide Level 21, Anion Gap 15H, Blood Urea Nitrogen 58H, Creatinine 2.35H, Estimat Glomerular Filtration Rate 20, BUN/Creatinine Ratio 25, Glucose Level 128H, Calcium Level 8.8, Phosphorus Level 1.6L 07/24/18 13:46: Glucometer 182H Microbiology 07/21/18 Blood Culture - Preliminary, Resulted No growth 07/21/18 Urine Culture - Final, Complete NO GROWTH A/P: Assessment: Gallstone pancreatitis, awaiting lap merced PSVT PATRICK - 3, improving with hydration History of CVA, left MCA distribution thrombus, received TPA on March 08, 2018, noted to have small intracranial bleed on March 10, 2018. No residual deficit was reported. Maintained on Plavix and ASA. Coronary artery disease, history of CABG and multiple stents to RCA and LAD. 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 Continue on beta sirisha. DAVID-I or ARB contraindicated secondary to this presentation with acute renal failure. Dual-chamber pacemaker implanted on March 01, 2013, [facility], done by Dr. Constantino. Last inerrog on April 10, 2018 showing longevity 7.5 years and normal function H/o vasovagal hypotension/syncope Severe hypertension during this admission Had been on atorvastatin and ezetimibe for hyperlipidemia, stopped during this hosp because of pancreatitis and liver enz elev Hypothyroidism, managed by primary care physician Plan: * I reviewed her old records, spoke with her and examined her * Management relatively complex due to multiple, active comorbidities that are outlined above * Continue bb * Add iv dilt if PSVT remains recurrent * Correct lytes * Monitor labs * Change to oral meds when oral intake is allowed Physician Assessment Physician Assessment Please see my separate note of the same date SONAL JAY MD FACP FACC CCDS July 24, 2018 09:20
[2018-07-24] MEDS ORDERED: fentaNYL INJECTION 100 MCG/2 ML AMP ONE (10:43)
--- NOTE | 2018-07-24 10:45 | NUR ---
PT LEFT FLOOR FOR OR W/ OR STAFF.
[2018-07-24] MEDS ORDERED: BUP/EPI 0.5% 1:200,000 (SENSORCAINE) 30 ML VIAL ONE (10:57)
[2018-07-24] MEDS ORDERED: LIDOCAINE 1% INJ 20 ML 20 ML VIAL ONE (10:57)
[2018-07-24] MEDS ORDERED: LACTATED RINGERS 1,000 ML IV PRN (11:00)
[2018-07-24] MEDS ORDERED: ROCURONIUM 10 MG/ML 5 ML SYRINGE IV ONE (11:33)
[2018-07-24] MEDS ORDERED: NEOSTIGMINE 1 MG/ML 5 ML SYRINGE ONE (11:33)
[2018-07-24] MEDS ORDERED: proPOfol 200 MG/20 ML (DIPRIVAN) VIAL IV ONE (11:33)
[2018-07-24] MEDS ORDERED: GLYCOPYRROLATE 0.2 MG/ML (ROBINUL) 2 ML VIAL ONE (11:33)
[2018-07-24] MEDS ORDERED: SEVOFLURANE (ULTANE) 15 ML INHAL SOLN ONE (11:33)
[2018-07-24] MEDS ORDERED: ONDANSETRON 4 MG/2 ML (SDV) Z0FRAN ONE (11:33)
[2018-07-24] MEDS ORDERED: PHENYLEPHRINE 100 MCG/ML 10 ML (ANESTHESIA) SYR ONE (11:33)
[2018-07-24] MEDS ORDERED: LIDOCAINE PF 2% 5 ML (XYLOCAINE) VIAL ONE (11:33)
--- NOTE | 2018-07-24 12:21 | Progress Note-Post Operative ---
Post-Operative Progess Note Surgeon (s)/Senior Java J2E[employer] Developer (s) Surgeon СВЕТЛАНА LOMBARDI DO Senior Java J2Ee Developer: Tatiana Pre-Operative Diagnosis Cholelithiasis with Cholecystitis, Acute Pancreatitis Post-Operative Diagnosis Same with jose-pancreatic fat necrosis Procedure & Operative Findings Date of Procedure 07/24/18 Procedure Performed/Findings Lap merced with IOC Anesthesia Type GET Estimated Blood Loss Estimated blood loss (mL): scant Specimens/Packing Specimens Removed GB and contents СВЕТЛАНА LOMBARDI DO July 24, 2018 12:21
[2018-07-24] MEDS ORDERED: morphine INJ 10 MG/ML 1ML (SYR OR VIAL) IVP ONE (13:00)
[2018-07-24] MEDS ORDERED: ONDANSETRON 4 MG/2 ML (SDV) Z0FRAN IVP PRN (13:00)
--- NOTE | 2018-07-24 13:09 | Diagnostic Imaging Report ---
INDICATION: Fluoroscopy for intraoperative plain. FINDINGS: Fluoroscopy was provided for Dr. Jean during intraoperative cholangiogram. 11 seconds of fluoroscopy was utilized. Images demonstrate contrast being injected via the cystic duct remnant. The visualized intrahepatic and extrahepatic bile ducts are normal caliber. No filling defects are seen. There is contrast passing into the duodenum. IMPRESSION: Fluoroscopy during intraoperative cholangiogram. Dictated by: Dictated on workstation # [id number]
--- NOTE | 2018-07-24 13:30 | NUR ---
pt back to [facility]9 via bed w/ pacu staff.
[2018-07-24] MEDS: fentaNYL INJECTION 100 MCG/2 ML AMP IV PRN ×2 (13:50→19:35)
--- NOTE | 2018-07-24 17:30 | Progress Note (SOAP) ---
Subjective Subjective/Events-last exam Patient sleeping comfortably. Pain is controlled, NPO for surgery Review of Systems Date Seen by Provider: July 24, 2018 Time Seen by Provider: 09:00 Pulmonary: No Dyspnea, No Cough Cardiovascular: No: Chest Pain, Palpitations, Edema Gastrointestinal: Abdominal Pain; No: Nausea, Vomiting Genitourinary: No Dysuria, No Frequency Focused Exam Lactate Level 07/23/18 09:19: Lactic Acid Level 0.84 Objective Exam Last Set of Vital Signs Vital Signs Date Time Temp Pulse Resp B/P (MAP) Pulse Ox O2 Delivery O2 Flow Rate FiO2 07/24/18 16:00 84 26 139/72 (94) 100 Nasal Cannula 2.00 07/24/18 15:56 98.2 Capillary Refill : Less Than 3 SecondsLess Than 3 Seconds I&O Intake and Output 07/24/18 00:00 Intake Total 4770 ml Output Total 3050 ml Balance 1720 ml IV Total 4770 ml Output Urine Total 3050 ml General: Alert, Oriented X3, Cooperative Lungs: Clear to Auscultation, Normal Air Movement Heart: Regular Rate, No Murmurs Abdomen: Normal Bowel Sounds, Soft, Other (RUQ ttp, no gaurding) Extremities: No Edema, No Tenderness/Swelling Neuro: Normal Speech, Cranial Nerves 3-12 NL Psych/Mental Status: Mental Status NL, Mood NL Results/Procedures Lab Laboratory Tests 07/23/18 17:49: Glucometer 290H 07/23/18 19:09: Magnesium Level 3.3H 07/24/18 00:24: Glucometer 214H 07/24/18 03:00: Magnesium Level 2.6H, White Blood Count 9.1, Red Blood Count 3.52L, Hemoglobin 10.4L, Hematocrit 30L, Mean Corpuscular Volume 86, Mean Corpuscular Hemoglobin 30, Mean Corpuscular Hemoglobin Concent 34, Red Cell Distribution Width 14.8H, Platelet Count 133, Mean Platelet Volume 10.4, Neutrophils (%) (Auto) 81H, Lymphocytes (%) (Auto) 7L, Monocytes (%) (Auto) 12, Eosinophils (%) (Auto) 0, Basophils (%) (Auto) 0, Neutrophils # (Auto) 7.4, Lymphocytes # (Auto) 0.6L, Monocytes # (Auto) 1.1H, Eosinophils # (Auto) 0.0, Basophils # (Auto) 0.0, Sodium Level 147H, Potassium Level 3.0L, Chloride Level 111H, Carbon Dioxide Level 21, Anion Gap 15H, Blood Urea Nitrogen 58H, Creatinine 2.35H, Estimat Glomerular Filtration Rate 20, BUN/Creatinine Ratio 25, Glucose Level 128H, Calcium Level 8.8, Phosphorus Level 1.6L 07/24/18 13:46: Glucometer 182H Microbiology 07/21/18 Blood Culture - Preliminary, Resulted No growth 07/23/18 MRSA Screen - Final, Complete MRSA not isolated 07/21/18 Urine Culture - Final, Complete NO GROWTH Assessment/Plan Assessment/Plan (1) Pancreatitis Status: Acute Assessment & Plan: - General Surgery consulted, Patient NPO, IVFs 150cc/hr and IV pain meds 07/23: Pain improving, labs improving 07/24: Pain well controlled Qualifiers: Qualified Codes: K85.10 - Biliary acute pancreatitis without necrosis or infection (2) Cholelithiasis Status: Acute Assessment & Plan: - General surgery consulted, patient likely needs surgery during this admission 07/23: Plan for [facility] in AM 07/24: Surgery today, will start CLD per surgery Qualifiers: Qualified Codes: K80.00 - Calculus of gallbladder with acute cholecystitis without obstruction (3) Acute kidney failure Status: Acute Assessment & Plan: - likely 2/2 dehydration, trending down, will continue to monitor 07/23: Improving, will continue to monitor 07/24: Trending down (4) Lactic acidosis Status: Acute (5) Elevated LFTs Status: Acute (6) SVT (supraventricular tachycardia) Status: Acute Assessment & Plan: - Cardiology consulted, resolved with 5mg IV Lopressor 07/23: Started on meds for rate control (7) CAD (coronary artery disease) Status: Chronic Qualifiers: Qualified Codes: I25.10 - Atherosclerotic heart disease of [place] coronary artery without angina pectoris Clinical Quality Measures DVT/VTE Risk/Contraindication: Risk Factor Score Per Nursin RFS Level Per Nursing on Admit: 3=High FELIBERTO SANDOVAL MD July 24, 2018 17:30
--- NOTE | 2018-07-24 19:45 | OPERATIVE REPORT ---
DATE OF SERVICE: 07/24/2017 PREOPERATIVE DIAGNOSES: Cholelithiasis, cholecystitis and acute pancreatitis. POSTOPERATIVE DIAGNOSES: Cholelithiasis, cholecystitis and acute pancreatitis, peripancreatic fat necrosis. SURGEON: Светлана Jean DO. SKID ROAD WORKER: Saman Crowley DO. ANESTHESIA: General endotracheal tube. PROCEDURE: Laparoscopic cholecystectomy with attempted cholangiogram. SPECIMEN: Gallbladder and contents. BLOOD LOSS: Scant. FLUIDS: Per anesthesia. POSTOPERATIVE CONDITION: Stable. INDICATION FOR PROCEDURE: The patient is a 78-year-old female who came in with an acute pancreatitis looked to be secondary to cholelithiasis and cholecystitis and waited till her enzymes were improved and the pain was improved to do the surgery. FINDINGS: The patient had a peripancreatic fat necrosis, picture was taken. She also had some hemorrhagic pancreatitis. Did have some sludge in the duct. Blood cholangiogram showed no obstruction. PROCEDURE NOTE: After informed consent was obtained, the patient was brought to the operating room, placed on the table in supine position. She was sterilely prepped and draped in normal fashion. Local lidocaine used to inflate the skin above the umbilicus. Made incision with #11 blade, carried down through the skin into subcutaneous tissue, deepened down to subcutaneous tissue with Bovie electrocautery down to the fascia. Fascia incised with electrocautery and bluntly entered into the abdomen, swept the finger around, placed 0 Vicryl [id number] suture and placed an 11 mm trocar port under direct visualization. Created pneumoperitoneum and placed 3 more ports in normal fashion using local lidocaine, 11 blade for stab incision and the VersaStep system, all done under direct visualization, one subxiphoid and 2 in the right lower quadrant. Upon entry, noted what looked like dark fluid and then appeared to be more of hemorrhagic pancreatitis. Grasped the gallbladder at the fundus, it was distended and it was edematous, could also see some fluid behind in the lesser sac of the stomach, pushed this gallbladder up and then able to grasp down the Ricardo's pouch. There were adhesions and some necrotic fat around the base of the gallbladder. Able to grasp it and pulled in inferolateral direction and start dissecting out cystic duct and cystic artery. Able to get around the cystic duct and then around the cystic artery placed 1 clip distally on the cystic duct and one distally two proximally on the cystic artery. Cut the cystic duct fdc through Metzenbaum scissors. Placed a cholangiogram catheter and shot the cholangiogram. Good spillage of dye down the cystic duct and the common bile duct into the small intestine as well as up into common hepatic and right and left hepatics. Removed the cholangiogram catheter, placed 2 clips proximally on the cystic duct and cut the cystic duct and cystic artery with Metzenbaum scissors. Started removing the gallbladder from bed of liver with L-hook cautery. Once it was completely removed placed a bag and then placed the gallbladder in the bag and then removed this through a supraumbilical incision. Placed the port back in the abdomen, copiously irrigated with normal saline. Hemostasis obtained from the bed of the liver with L-hook cautery. Suctioned out all fluid and irrigated and then placed the patient back in supine position. She had been reverse down and rotated left. Removed all ports under direct visualization. Closed the supraumbilical incision, closing the fascia with 0 Vicryl suture previously placed. Copiously irrigated the incisions with normal saline then closed the 3 small 5 mm incisions with single interrupted 4-0 undyed Monocryl subcuticular stitch. Closed the supraumbilical incision with 3 interrupted 4-0 undyed Monocryl subcuticular stitches. Area was cleaned and dried. Dermabond and Band-Aids placed. Elected to leave a 19-[place] Van drain under the liver and right at the spot where there was a peripancreatic necrosis. This was pushed into the supraumbilical incision. Then closed, pulled out through the most lateral 5 mm lower incision, sutured in place with 3-0 silk. Closed all the incisions with Dermabond and Band-Aids and patient then transferred to recovery room in stable condition. Sponge, instrument and needle counts correct at the end of the case. Dr. Crowley assisted in this case helping to make incision, closed incision as well as identify anatomy, hold the anatomy out of the way. Job ID: [id number] DocumentID: [id number] Dictated Date: 07/24/2018 14:11:25 Audit Spec Date: 07/24/2018 19:44:30 Dictated By: СВЕТЛАНА JEAN DO
[2018-07-25] VITALS (25 sets, daily range): BP systolic 122–173; BP diastolic 53–117
[2018-07-25] MEDS: meTOprolol 5 MG/5 ML (LOPRESSOR) VIAL IV SCH ×6 (00:46→21:07)
[2018-07-25] MEDS: PIPERACILLIN/TAZO 4.5 GM/NS 100 ML IV SCH ×6 (00:46→23:41)
[2018-07-25] MEDS: fentaNYL INJECTION 100 MCG/2 ML AMP IV PRN ×6 (00:46→21:07)
[2018-07-25] MEDS: inSUlin ASPART (NovoLOG) 1 UNIT/0.01 ML (CHARGE PER UNIT) SC SCH ×5 (00:52→23:38)
[2018-07-25 03:55] LABS: BASOPHILS % (AUTO) 0 % (0-10); EOSINOPHILS % (AUTO) 0 % (0-10); HEMATOCRIT 31 % (35-52); HEMOGLOBIN 10.1 G/DL (11.5-16.0); LYMPHOCYTES # (AUTO) 0.6 X 10^3 (1.0-4.0); LYMPHOCYTES % (AUTO) 7 % (12-44); MEAN CORPUSCULAR HEMOGLOBIN 29 PG (25-34); MEAN CORPUSCULAR HGB CONC 33 G/DL (32-36); MEAN CORPUSCULAR VOLUME 88 FL (80-99); MEAN PLATELET VOLUME 10.7 FL (7.4-10.4); MONOCYTES % (AUTO) 11 % (0-12); NEUTROPHILS # (AUTO) 7.1 X 10^3 (1.8-7.8); NEUTROPHILS % (AUTO) 82 % (42-75); PLATELET COUNT 130 10^3/uL (130-400); RED CELL DISTRIBUTION WIDTH 14.9 % (10.0-14.5); WHITE BLOOD COUNT 8.8 10^3/uL (4.3-11.0)
[2018-07-25 04:13] LABS: CALCIUM 8.1 MG/DL (8.5-10.1); CREATININE SERUM 2.37 MG/DL (0.60-1.30); MAGNESIUM 1.9 MG/DL (1.8-2.4); PHOSPHORUS 4.1 MG/DL (2.3-4.7); POTASSIUM 3.1 MMOL/L (3.6-5.0)
--- NOTE | 2018-07-25 04:53 | Pulmonary Progress Note ---
Subjective Time Seen by a Provider: 11:35 Subjective/Events-last exam Pt appears SOB. Sepsis Event Evaluation Height, Weight, BMI Height: 5'0.00" Weight: 147lbs. 0.5oz. 66.511814qb; 28.7 BMI Method:Stated Focused Exam Lactate Level 07/23/18 09:19: Lactic Acid Level 0.84 Exam Exam Vital Signs Date Time Temp Pulse Resp B/P (MAP) Pulse Ox O2 Delivery O2 Flow Rate FiO2 07/25/18 04:00 86 17 125/68 (87) 99 Nasal Cannula 2.00 07/25/18 03:00 80 23 164/83 (110) 99 Nasal Cannula 2.00 07/25/18 02:00 77 20 156/70 (98) 98 Nasal Cannula 2.00 07/25/18 01:00 74 20 140/93 (109) 98 Nasal Cannula 2.00 07/25/18 01:00 74 07/25/18 00:46 98.8 07/25/18 00:00 Nasal Cannula 2.00 07/25/18 00:00 89 14 173/82 (112) 99 Nasal Cannula 2.00 07/24/18 23:00 84 19 163/80 (107) 98 Nasal Cannula 2.00 07/24/18 22:00 77 25 145/77 (99) 99 Nasal Cannula 2.00 07/24/18 21:00 93 27 142/64 (90) 98 Nasal Cannula 2.00 07/24/18 20:00 97 25 133/63 (86) 98 Nasal Cannula 2.00 07/24/18 20:00 Room Air 07/24/18 19:57 99.0 07/24/18 19:00 87 07/24/18 19:00 85 15 140/67 (91) 100 Nasal Cannula 2.00 07/24/18 18:00 80 20 142/63 (89) 99 Nasal Cannula 2.00 07/24/18 17:00 75 23 154/71 (98) 100 Nasal Cannula 2.00 07/24/18 16:00 84 26 139/72 (94) 100 Nasal Cannula 2.00 07/24/18 15:56 98.2 07/24/18 15:08 Room Air 07/24/18 15:00 77 21 154/75 (101) 98 Nasal Cannula 2.00 5/17/19 14:00 73 18 154/73 (100) 98 Nasal Cannula 2.00 07/24/18 13:56 Nasal Cannula 2.00 07/24/18 13:51 75 07/24/18 13:45 98.2 07/24/18 13:30 Room Air 07/24/18 13:30 99.0 23 94 Room Air 07/24/18 13:20 23 96 Room Air 07/24/18 13:10 23 100 Room Air 07/24/18 13:00 24 100 OxyMask 4 07/24/18 12:50 24 100 OxyMask 4 07/24/18 12:40 97.7 22 100 OxyMask 10 07/24/18 12:39 97.7 22 100 OxyMask 10 07/24/18 10:00 89 20 159/78 (105) 95 Room Air 07/24/18 09:00 80 19 175/74 (107) 94 Room Air 07/24/18 08:05 Room Air 07/24/18 08:00 75 21 162/64 (96) 94 Room Air 07/24/18 07:16 99.7 07/24/18 07:12 80 07/24/18 07:00 75 26 164/82 (109) 95 Room Air 07/24/18 06:00 71 20 177/87 (117) 96 Room Air 07/24/18 05:00 77 19 168/81 (110) 94 Room Air I & O 07/25/18 07:00 Intake Total 1730 ml Output Total 1663 ml Balance 67 ml Height & Weight Height: 5'0.00" Weight: 147lbs. 0.5oz. 66.101460az; 28.7 BMI Method:Stated General Appearance: No Apparent Distress, WD/WN HEENT: Other (edentulous) Neck: Non Tender, Supple Respiratory: Chest Non Tender, Lungs Clear, Normal Breath Sounds, No Accessory Muscle Use, No Respiratory Distress Cardiovascular: Regular Rate, Rhythm, No Edema, No Murmur, Normal Peripheral Pulses Capillary Refill: Less Than 3 Seconds Peripheral Pulses: 0 Carotid (R), 0 Carotid (L), 0 Femoral (R), 0 Femoral (L), 0 Dorsalis Pedis (R); 2+ Dorsalis Pedis (R); 0 Left Dors-Pedis (L); 2+ Left Dors-Pedis (L); 0 Radial Pulses (R); 2+ Radial Pulses (R); 0 Radial Pulses (L); 2+ Radial Pulses (L) Gastrointestinal: normal bowel sounds, non tender, soft, no organomegaly; No mass Extremity: Non Tender, No Calf Tenderness 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, [place] tender II-XII Norm as Tested Results Lab Laboratory Tests 07/23/18 05:05 07/24/18 03:00 07/25/18 03:30 Assessment/Plan Assessment/Plan Pancreatitis -IVF Hypernatremia -LR Metabolic lactic acidosis -IVF -Repeat lactic acid Cholelithiasis -Surgery following -Plan is for surgery today Acute renal failure -Increase IVF Intravascular dehydration -Increase IVF SVT -Cardiology following HTN -Add hydralazine PRN Hypokalemia, hypopphos -Replace CAD SINCERE DALTON DO July 25, 2018 04:53
[2018-07-25] MEDS: LACTATED RINGERS 1,000 ML IV SCH ×5 (05:16→18:06)
[2018-07-25] MEDS: POTASSIUM CL 10MEQ/50ML IVPB 50 ML IV SCH ×5 (05:18→08:16)
[2018-07-25] MEDS: KCL 20 MEQ TAB (K-DUR) PO SCH (06:36)
[2018-07-25] MEDS: MAGNESIUM 1 GM/100 ML IVPB 100 ML IV SCH (06:36)
[2018-07-25] MEDS ORDERED: RT-ALBUTEROL SULF 2.5 MG/3 ML PRE-MIX VIAL INH PRN (10:15)
--- NOTE | 2018-07-25 10:35 | Diagnostic Imaging Report ---
INDICATION: Pancreatitis, cholelithiasis and acute renal failure. TECHNIQUE: Single view chest 3:47 AM. CORRELATION STUDY: 07/24/2018 FINDINGS: Post sternotomy change with left-sided pacemaker. Cardiac enlargement present with vascular congestion and edema slightly increased. Also appears to be some increasing effusion along with atelectasis and/or infiltrate at the lung bases. IMPRESSION: 1. Worsening features of a likely some degree of fluid overload or heart failure. Dictated by: Dictated on workstation # [id number]
--- NOTE | 2018-07-25 12:32 | Progress Note ---
Subjective Time Seen by a Provider: 10:45 Subjective/Events-last exam Pt seen and examined; states minimal abd pain. She is tolerating clears. Perez in place for accurate I&O's. Review of Systems General: No Chills, No Night Sweats Pulmonary: No Dyspnea, No Cough Cardiovascular: No: Chest Pain, Palpitations Gastrointestinal: Abdominal Pain Focused Exam Lactate Level 07/23/18 09:19: Lactic Acid Level 0.84 Objective Exam Vital Signs Date Time Temp Pulse Resp B/P (MAP) Pulse Ox O2 Delivery O2 Flow Rate FiO2 07/25/18 12:00 87 30 141/100 (114) 95 Nasal Cannula 2.00 07/25/18 11:00 85 21 135/64 (87) 95 Nasal Cannula 2.00 07/25/18 10:00 83 21 122/58 (79) 94 Nasal Cannula 2.00 07/25/18 09:48 80 94 28 07/25/18 09:00 80 25 144/88 (106) 94 Nasal Cannula 2.00 07/25/18 08:00 Nasal Cannula 2.00 07/25/18 08:00 98.1 80 22 157/89 (111) 99 Nasal Cannula 2.00 07/25/18 07:00 79 21 157/74 (101) 100 Nasal Cannula 2.00 07/25/18 07:00 79 07/25/18 06:00 70 16 144/117 (126) 100 Nasal Cannula 2.00 07/25/18 05:00 77 20 137/110 (119) 99 Nasal Cannula 2.00 07/25/18 04:00 99.1 07/25/18 04:00 86 17 125/68 (87) 99 Nasal Cannula 2.00 07/25/18 04:00 Nasal Cannula 2.00 07/25/18 03:00 80 23 164/83 (110) 99 Nasal Cannula 2.00 07/25/18 02:00 77 20 156/70 (98) 98 Nasal Cannula 2.00 07/25/18 01:00 74 20 140/93 (109) 98 Nasal Cannula 2.00 07/25/18 01:00 74 07/25/18 00:46 98.8 07/25/18 00:00 Nasal Cannula 2.00 07/25/18 00:00 89 14 173/82 (112) 99 Nasal Cannula 2.00 07/25/18 00:00 98.8 07/24/18 23:00 84 19 163/80 (107) 98 Nasal Cannula 2.00 07/24/18 22:00 77 25 145/77 (99) 99 Nasal Cannula 2.00 07/24/18 21:00 93 27 142/64 (90) 98 Nasal Cannula 2.00 07/24/18 20:00 97 25 133/63 (86) 98 Nasal Cannula 2.00 07/24/18 20:00 Room Air 07/24/18 19:57 99.0 07/24/18 19:00 87 07/24/18 19:00 85 15 140/67 (91) 100 Nasal Cannula 2.00 07/24/18 18:00 80 20 142/63 (89) 99 Nasal Cannula 2.00 07/24/18 17:00 75 23 154/71 (98) 100 Nasal Cannula 2.00 07/24/18 16:00 84 26 139/72 (94) 100 Nasal Cannula 2.00 07/24/18 15:56 98.2 07/24/18 15:08 Room Air 07/24/18 15:00 77 21 154/75 (101) 98 Nasal Cannula 2.00 07/24/18 14:00 73 18 154/73 (100) 98 Nasal Cannula 2.00 07/24/18 13:56 Nasal Cannula 2.00 07/24/18 13:51 75 07/24/18 13:45 98.2 07/24/18 13:30 Room Air 07/24/18 13:30 99.0 23 94 Room Air 07/24/18 13:20 23 96 Room Air 07/24/18 13:10 23 100 Room Air 07/24/18 13:00 24 100 OxyMask 4 07/24/18 12:50 24 100 OxyMask 4 07/24/18 12:40 97.7 22 100 OxyMask 10 07/24/18 12:39 97.7 22 100 OxyMask 10 I & O 07/25/18 07:00 Intake Total 2700 ml Output Total 1963 ml Balance 737 ml Capillary Refill : Less Than 3 SecondsLess Than 3 Seconds General Appearance: No Apparent Distress, WD/WN HEENT: Other (edentulous) Respiratory: Chest Non Tender, Lungs Clear, Normal Breath Sounds, No Accessory Muscle Use, No Respiratory Distress Cardiovascular: Regular Rate, Rhythm, No Murmur Peripheral Pulses: 2+ Dorsalis Pedis (R), 2+ Left Dors-Pedis (L), 2+ Radial Pulses (R), 2+ Radial Pulses (L) Gastrointestinal: soft; No distended; other (incisions are c/d/i) Extremity: No Calf Tenderness 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, 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 Results Lab Laboratory Tests 07/24/18 13:46: Glucometer 182H 07/24/18 17:19: Glucometer 179H 07/25/18 00:37: Glucometer 398H 07/25/18 03:30: White Blood Count 8.8, Red Blood Count 3.45L, Hemoglobin 10.1L, Hematocrit 31L, Mean Corpuscular Volume 88, Mean Corpuscular Hemoglobin 29, Mean Corpuscular Hemoglobin Concent 33, Red Cell Distribution Width 14.9H, Platelet Count 130, Mean Platelet Volume 10.7H, Neutrophils (%) (Auto) 82H, Lymphocytes (%) (Auto) 7L, Monocytes (%) (Auto) 11, Eosinophils (%) (Auto) 0, Basophils (%) (Auto) 0, Neutrophils # (Auto) 7.1, Lymphocytes # (Auto) 0.6L, Monocytes # (Auto) 1.0, Eosinophils # (Auto) 0.0, Basophils # (Auto) 0.0, Sodium Level 143, Potassium Level 3.1L, Chloride Level 110H, Carbon Dioxide Level 19L, Anion Gap 14, Blood Urea Nitrogen 58H, Creatinine 2.37H, Estimat Glomerular Filtration Rate 20, BUN/Creatinine Ratio 24, Glucose Level 253H, Calcium Level 8.1L, Phosphorus Level 4.1, Magnesium Level 1.9 Microbiology 07/21/18 Blood Culture - Preliminary, Resulted No growth 07/23/18 MRSA Screen - Final, Complete MRSA not isolated 07/21/18 Urine Culture - Final, Complete NO GROWTH Assessment/Plan Assessment/Plan Assessment/Plan S/P Lap merced 1. Acute Pancreatitis with Necrotic Emmy-pancreatic fat 2. Acute Renal Failure - improving 3. Dehydration- improving Pt looks good after surgery, increase diet as tolerated and encourage ambulation and IS use. Continue Van drain to bulb suction. Clinical Quality Measures DVT/VTE Risk/Contraindication: Risk Factor Score Per Nursin RFS Level Per Nursing on Admit: 3=High СВЕТЛАНА LOMBARDI DO July 25, 2018 12:32
[2018-07-25] MEDS ORDERED: DILTIAZEM 25 MG/5 ML INJ (CARDIZEM) VIAL IVP ONE (14:00)
[2018-07-25] MEDS: DILTIAZEM IV FOR DRIP 125 MG in NS (IVPB) 100 ML IV SCH (14:18)
[2018-07-25] MEDS: RT-ALBUTEROL SULF 2.5 MG/3 ML PRE-MIX VIAL INH SCH ×2 (14:28→20:10)
--- NOTE | 2018-07-25 14:30 | NUR ---
1352 THIS RN TO PT ROOM AFTER SEEING PT HEART RATE OF 160'S ON MONITOR. PT SITTING UP IN BEDSIDE CHAIR WATCHING TV. PT C/O PAIN. THIS RN ATTEMPTED FOR PT TO DO VALSALVA MANEUVER AND BEAR DOWN. THEN PT ASSISTED BACK TO BED WITH ASSIST X2 AND PAIN MEDICATION GIVE. 1400 DR JAY IN ROOM AND ORDERED CARDIZEM BOLUS AND IV GTT, 1405 CARDIZEM BOLUS GIVEN, PT HEART RATE CHANGED ON MONITOR TO READING 65 AND A PACED BEAT. THIS RN NOTIFIED DR JAY, DR JAY STATED TO CONTINUE WITH CARDIZEM GTT.
--- NOTE | 2018-07-25 15:03 | Progress Note-Cardiology ---
Cardiology SOAP Progress Note Subjective: Notes gen malaise Does not report cp or palp or syncope Objective: I&O/Vital Signs 07/25/18 07/25/18 07/25/18 07/25/18 04:00 04:00 04:00 05:00 Temp 99.1 Pulse 86 77 Resp 17 20 B/P (MAP) 125/68 (87) 137/110 (119) Pulse Ox 99 99 O2 Delivery Nasal Cannula Nasal Cannula Nasal Cannula O2 Flow Rate 2.00 2.00 2.00 07/25/18 07/25/18 07/25/18 07/25/18 06:00 07:00 07:00 08:00 Temp 98.1 Pulse 70 79 79 80 Resp 16 21 22 B/P (MAP) 144/117 (126) 157/74 (101) 157/89 (111) Pulse Ox 100 100 99 O2 Delivery Nasal Cannula Nasal Cannula Nasal Cannula O2 Flow Rate 2.00 2.00 2.00 07/25/18 07/25/18 07/25/18 07/25/18 08:00 09:00 09:48 10:00 Pulse 80 80 83 Resp 25 21 B/P (MAP) 144/88 (106) 122/58 (79) Pulse Ox 94 94 94 O2 Delivery Nasal Cannula Nasal Cannula Nasal Cannula O2 Flow Rate 2.00 2.00 2.00 FiO2 28 07/25/18 07/25/18 07/25/18 07/25/18 11:00 12:00 12:00 12:34 Temp 97.9 Pulse 85 87 Resp 21 30 B/P (MAP) 135/64 (87) 141/100 (114) Pulse Ox 95 95 O2 Delivery Nasal Cannula Room Air Room Air O2 Flow Rate 2.00 07/25/18 07/25/18 07/25/18 07/25/18 12:52 13:00 14:00 14:18 Pulse 90 76 65 82 Resp 26 23 B/P (MAP) 154/73 (100) 150/105 (120) Pulse Ox 96 97 O2 Delivery Room Air Room Air 07/25/18 14:31 Pulse Ox 93 O2 Delivery Nasal Cannula O2 Flow Rate 3.00 07/25/18 00:00 Intake Total 1170 ml Output Total 963 ml Balance 207 ml Weight (Pounds): 147 Weight (Ounces): 7.0 Weight (Calculated Kilograms): 66.242879 Constitutional: well-developed, well-nourished, other (appropriately responsive) Respiratory: No accessory muscle use; other (good bilat air entry) Cardiovascular: regular rate-rhythm, S1 and S2, systolic murmur (soft RUBA at card base) Gastrointestional: tender; No guarding; audible bowel sounds Extremities: No clubbing, No cyanosis, No significant edema Neurologic/Psychiatric: grossly intact, power is 5/5 both on sides Skin: No rash on exposed areas, No ulcerations on exposed areas Results/Procedures: Labs Laboratory Tests 07/24/18 17:19: Glucometer 179H 07/25/18 00:37: Glucometer 398H 07/25/18 03:30: White Blood Count 8.8, Red Blood Count 3.45L, Hemoglobin 10.1L, Hematocrit 31L, Mean Corpuscular Volume 88, Mean Corpuscular Hemoglobin 29, Mean Corpuscular Hemoglobin Concent 33, Red Cell Distribution Width 14.9H, Platelet Count 130, Mean Platelet Volume 10.7H, Neutrophils (%) (Auto) 82H, Lymphocytes (%) (Auto) 7L, Monocytes (%) (Auto) 11, Eosinophils (%) (Auto) 0, Basophils (%) (Auto) 0, Neutrophils # (Auto) 7.1, Lymphocytes # (Auto) 0.6L, Monocytes # (Auto) 1.0, Eosinophils # (Auto) 0.0, Basophils # (Auto) 0.0, Sodium Level 143, Potassium Level 3.1L, Chloride Level 110H, Carbon Dioxide Level 19L, Anion Gap 14, Blood Urea Nitrogen 58H, Creatinine 2.37H, Estimat Glomerular Filtration Rate 20, BUN/Creatinine Ratio 24, Glucose Level 253H, Calcium Level 8.1L, Phosphorus Level 4.1, Magnesium Level 1.9 07/25/18 12:26: Glucometer 281H Microbiology 07/21/18 Blood Culture - Preliminary, Resulted No growth 07/23/18 MRSA Screen - Final, Complete MRSA not isolated 07/21/18 Urine Culture - Final, Complete NO GROWTH Laboratory Tests 07/24/18 03:00 07/25/18 03:30 A/P: Assessment: Gallstone pancreatitis. S/p lap merced on 07/24/18 PSVT, continuing PATRICK - 3, improving with hydration History of CVA, left MCA distribution thrombus, received TPA on March 08, 2018, noted to have small intracranial bleed on March 10, 2018. No residual deficit was reported. Maintained on Plavix and ASA. Coronary artery disease, history of CABG and multiple stents to RCA and LAD. 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 Continue on beta sirisha. DAVID-I or ARB contraindicated secondary to this presentation with acute renal failure. Dual-chamber pacemaker implanted on March 01, 2013, [facility], done by Dr. Constantino. Last inerrog on April 10, 2018 showing longevity 7.5 years and normal function H/o vasovagal hypotension/syncope Severe hypertension during this admission Had been on atorvastatin and ezetimibe for hyperlipidemia, stopped during this hosp because of pancreatitis and liver enz elev Hypothyroidism, managed by primary care physician Plan: * Continues to have SVT despite bb * Continue bb and iv dilt * Correct lytes * Monitor labs * Change to oral meds when oral intake is allowed SONAL JAY MD FACP FACC CCDS July 25, 2018 15:03
--- NOTE | 2018-07-25 15:10 | Anesthesia-General Post-Op ---
General Patient Condition Mental Status/LOC: Same as Preop Cardiovascular: Satisfactory Nausea/Vomiting: Absent Respiratory: Satisfactory Pain: Controlled Complications: Absent Post Op Complications Complications None Follow Up Care/Instructions Patient Instructions None needed. Anesthesia/Patient Condition Patient Condition Patient is doing well, no complaints, stable vital signs, no apparent adverse anesthesia problems. No complications reported per nursing. ADONIS CALVERT CRNA July 25, 2018 15:10
--- NOTE | 2018-07-25 18:01 | Progress Note (SOAP) ---
Subjective Subjective/Events-last exam Overall doing well. Some post-op pain. Review of Systems Date Seen by Provider: July 25, 2018 Time Seen by Provider: 06:25 Focused Exam Lactate Level 07/23/18 09:19: Lactic Acid Level 0.84 Objective Exam Last Set of Vital Signs Vital Signs Date Time Temp Pulse Resp B/P (MAP) Pulse Ox O2 Delivery O2 Flow Rate FiO2 07/25/18 17:00 70 21 146/64 (91) 93 Room Air 07/25/18 16:26 98.9 07/25/18 14:31 3.00 07/25/18 09:48 28 Capillary Refill : Less Than 3 SecondsLess Than 3 Seconds I&O Intake and Output 07/25/18 00:00 Intake Total 1850 ml Output Total 2913 ml Balance -1063 ml Intake Oral 50 ml IV Total 1800 ml Output Urine Total 2625 ml Drainage Total 288 ml General: Alert, Oriented X3, Cooperative Lungs: Clear to Auscultation Heart: Regular Rate Abdomen: Other (decreased BS) Psych/Mental Status: Mental Status NL, Mood NL Results/Procedures Lab Laboratory Tests 07/25/18 00:37: Glucometer 398H 07/25/18 03:30: White Blood Count 8.8, Red Blood Count 3.45L, Hemoglobin 10.1L, Hematocrit 31L, Mean Corpuscular Volume 88, Mean Corpuscular Hemoglobin 29, Mean Corpuscular Hemoglobin Concent 33, Red Cell Distribution Width 14.9H, Platelet Count 130, Mean Platelet Volume 10.7H, Neutrophils (%) (Auto) 82H, Lymphocytes (%) (Auto) 7L, Monocytes (%) (Auto) 11, Eosinophils (%) (Auto) 0, Basophils (%) (Auto) 0, Neutrophils # (Auto) 7.1, Lymphocytes # (Auto) 0.6L, Monocytes # (Auto) 1.0, Eosinophils # (Auto) 0.0, Basophils # (Auto) 0.0, Sodium Level 143, Potassium Level 3.1L, Chloride Level 110H, Carbon Dioxide Level 19L, Anion Gap 14, Blood Urea Nitrogen 58H, Creatinine 2.37H, Estimat Glomerular Filtration Rate 20, BUN/Creatinine Ratio 24, Glucose Level 253H, Calcium Level 8.1L, Phosphorus Level 4.1, Magnesium Level 1.9 07/25/18 12:26: Glucometer 281H Microbiology 5/14/19 Blood Culture - Preliminary, Resulted No growth 07/23/18 MRSA Screen - Final, Complete MRSA not isolated 07/21/18 Urine Culture - Final, Complete NO GROWTH Assessment/Plan Assessment/Plan (1) Pancreatitis Status: Acute Assessment & Plan: - General Surgery consulted, Patient NPO, IVFs 150cc/hr and IV pain meds 07/23: Pain improving, labs improving 07/24: Pain well controlled 07/25: s/p lap merced 07/24 Qualifiers: Qualified Codes: K85.10 - Biliary acute pancreatitis without necrosis or infection (2) Cholelithiasis Status: Acute Assessment & Plan: - General surgery consulted, patient likely needs surgery during this admission 07/23: Plan for Merced in AM 07/24: Surgery today, will start CLD per surgery Qualifiers: Qualified Codes: K80.00 - Calculus of gallbladder with acute cholecystitis without obstruction (3) Acute kidney failure Status: Acute Assessment & Plan: - likely 2/2 dehydration, trending down, will continue to monitor 07/23: Improving, will continue to monitor 07/24: Trending down 07/25: Cr 2.37 (4.25 on admission); suspect CKD (4) Lactic acidosis Status: Acute (5) Elevated LFTs Status: Acute (6) SVT (supraventricular tachycardia) Status: Acute Assessment & Plan: - Cardiology consulted, resolved with 5mg IV Lopressor 07/23: Started on meds for rate control (7) CAD (coronary artery disease) Status: Chronic Qualifiers: Qualified Codes: I25.10 - Atherosclerotic heart disease of [place] coronary artery without angina pectoris (8) Diabetes Status: Chronic Assessment & Plan: A1c 01/2018 6.0 - on Metformin at home; will hold due to PATRICK/CKD; start Levemir 10U while in the hospital due to hyperglycemia Qualifiers: Qualified Codes: E11.22 - Type 2 diabetes mellitus with diabetic chronic kidney disease; N18.3 - Chronic kidney disease, stage 3 (moderate) Clinical Quality Measures DVT/VTE Risk/Contraindication: Risk Factor Score Per Nursin RFS Level Per Nursing on Admit: 3=High DIAN NAVA DO July 25, 2018 18:01
[2018-07-26] VITALS (17 sets, daily range): BP systolic 128–163; BP diastolic 50–94
[2018-07-26] MEDS: meTOprolol 5 MG/5 ML (LOPRESSOR) VIAL IV SCH ×7 (00:40→23:52)
[2018-07-26] MEDS: RT-ALBUTEROL SULF 2.5 MG/3 ML PRE-MIX VIAL INH SCH ×6 (02:23→21:51)
[2018-07-26 03:35] LABS: BASOPHILS % (AUTO) 0 % (0-10); EOSINOPHILS # (AUTO) 0.1 10^3/uL (0.0-0.3); EOSINOPHILS % (AUTO) 1 % (0-10); HEMATOCRIT 29 % (35-52); HEMOGLOBIN 9.5 G/DL (11.5-16.0); LYMPHOCYTES % (AUTO) 8 % (12-44); MEAN CORPUSCULAR HEMOGLOBIN 29 PG (25-34); MEAN CORPUSCULAR HGB CONC 32 G/DL (32-36); MEAN CORPUSCULAR VOLUME 90 FL (80-99); MEAN PLATELET VOLUME 11.1 FL (7.4-10.4); MONOCYTES # (AUTO) 1.2 X 10^3 (0.0-1.0); MONOCYTES % (AUTO) 9 % (0-12); NEUTROPHILS # (AUTO) 10.7 X 10^3 (1.8-7.8); NEUTROPHILS % (AUTO) 82 % (42-75); PLATELET COUNT 154 10^3/uL (130-400); RED CELL DISTRIBUTION WIDTH 15.2 % (10.0-14.5); WHITE BLOOD COUNT 13.1 10^3/uL (4.3-11.0)
[2018-07-26 03:52] LABS: CALCIUM 8.3 MG/DL (8.5-10.1); CREATININE SERUM 1.98 MG/DL (0.60-1.30); MAGNESIUM 1.3 MG/DL (1.8-2.4); PHOSPHORUS 3.4 MG/DL (2.3-4.7); POTASSIUM 3.1 MMOL/L (3.6-5.0)
[2018-07-26] MEDS: LACTATED RINGERS 1,000 ML IV SCH (04:34)
--- NOTE | 2018-07-26 05:57 | Pulmonary Progress Note ---
Subjective Time Seen by a Provider: 06:01 Subjective/Events-last exam Pt is currently on Cardizem gtt secondary to Afib rvr Sepsis Event Evaluation Height, Weight, BMI Height: 5'0.00" Weight: 147lbs. 7.0oz. 66.367316vg; 28.7 BMI Method:Stated Focused Exam Lactate Level 07/23/18 09:19: Lactic Acid Level 0.84 Exam Exam Vital Signs Date Time Temp Pulse Resp B/P (MAP) Pulse Ox O2 Delivery O2 Flow Rate FiO2 07/26/18 05:00 66 22 150/71 (97) 98 Nasal Cannula 2.00 07/26/18 04:00 78 17 140/55 (83) 96 Nasal Cannula 2.00 07/26/18 04:00 Room Air 07/26/18 03:00 76 19 148/57 (87) 97 Nasal Cannula 2.00 07/26/18 02:24 97 Nasal Cannula 3.00 07/26/18 02:00 68 27 137/50 (79) 97 Nasal Cannula 2.00 07/26/18 01:00 70 07/26/18 01:00 70 26 128/94 (105) 98 Nasal Cannula 2.00 07/26/18 00:00 Room Air 07/26/18 00:00 81 20 135/60 (85) 97 Nasal Cannula 2.00 07/25/18 23:00 68 23 133/86 (102) 99 Nasal Cannula 2.00 07/25/18 22:00 66 26 123/62 (82) 98 Nasal Cannula 2.00 07/25/18 21:15 Nasal Cannula 2.00 07/25/18 21:00 84 28 137/59 (85) 93 Room Air 07/25/18 20:11 93 Nasal Cannula 3.00 07/25/18 20:00 79 25 154/53 (86) 93 Room Air 07/25/18 20:00 98.8 07/25/18 20:00 Room Air 07/25/18 19:00 78 27 150/70 (96) 93 Room Air 07/25/18 19:00 82 07/25/18 18:00 76 21 147/76 (99) 94 Room Air 07/25/18 17:00 70 21 146/64 (91) 93 Room Air 07/25/18 16:26 98.9 5/18/19 16:00 90 25 135/73 (93) 91 Room Air 07/25/18 16:00 Room Air 07/25/18 15:00 84 26 164/83 (110) 92 Room Air 07/25/18 14:31 93 Nasal Cannula 3.00 07/25/18 14:18 82 07/25/18 14:00 65 23 150/105 (120) 97 Room Air 07/25/18 13:00 76 26 154/73 (100) 96 Room Air 07/25/18 12:52 90 07/25/18 12:34 97.9 07/25/18 12:00 87 30 141/100 (114) 95 Room Air 07/25/18 12:00 Room Air 07/25/18 11:00 85 21 135/64 (87) 95 Nasal Cannula 2.00 07/25/18 10:00 83 21 122/58 (79) 94 Nasal Cannula 2.00 07/25/18 09:48 80 94 28 07/25/18 09:00 80 25 144/88 (106) 94 Nasal Cannula 2.00 07/25/18 08:00 Nasal Cannula 2.00 07/25/18 08:00 98.1 80 22 157/89 (111) 99 Nasal Cannula 2.00 07/25/18 07:00 79 21 157/74 (101) 100 Nasal Cannula 2.00 07/25/18 07:00 79 07/25/18 06:00 70 16 144/117 (126) 100 Nasal Cannula 2.00 I & O 07/26/18 07:00 Intake Total 3230 ml Output Total 1365 ml Balance 1865 ml Height & Weight Height: 5'0.00" Weight: 147lbs. 7.0oz. 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 Results Lab Laboratory Tests 07/25/18 03:30 07/26/18 03:16 Assessment/Plan Assessment/Plan Pancreatitis with Necrotic Emmy-pancreatic fat -IVF - change to 1/2 NS secondary to hypernatremia Afib rvr S/p lap Maida Hypernatremia -Change LR to 1/2 NS Leukocytosis- No fever currently -Pt is on Zosyn currently -Continue to monitor Metabolic lactic acidosis -IVF Cholelithiasis -Surgery following -Plan is for surgery today Acute renal failure -Increase IVF Intravascular dehydration -Increase IVF SVT -Cardiology following HTN -Add hydralazine PRN Hypokalemia, hypopphos -Replace CAD SINCERE DALTON DO July 26, 2018 05:57
[2018-07-26 06:16] LABS: AMYLASE 58 U/L (25-125); LIPASE 58 U/L (8-78)
[2018-07-26] MEDS: 1/2 NS IV SOLUTION 1,000 ML IV SCH ×2 (06:31→16:13)
[2018-07-26] MEDS: MAGNESIUM 1 GM/100 ML IVPB 100 ML IV SCH ×3 (06:32→08:19)
[2018-07-26] MEDS: POTASSIUM CL 10MEQ/50ML IVPB 50 ML IV SCH ×7 (06:36→14:49)
[2018-07-26] MEDS: inSUlin ASPART (NovoLOG) 1 UNIT/0.01 ML (CHARGE PER UNIT) SC SCH ×3 (06:37→19:51)
[2018-07-26] MEDS: KCL 20 MEQ TAB (K-DUR) PO SCH (06:37)
--- NOTE | 2018-07-26 08:44 | Diagnostic Imaging Report ---
INDICATION: Pancreatitis, cholelithiasis and renal failure. Comparison made with prior examination from 07/25/2018. FINDINGS: There is cardiomegaly. There is venous congestion. There are bibasal infiltrates and bilateral pleural effusions. There is no pneumothorax. The mediastinum is unremarkable. There has been a previous median sternotomy and coronary bypass graft. Pacemaker overlies left hemithorax. IMPRESSION: Bibasilar atelectasis and/or pneumonitis and bilateral pleural effusions. Cardiomegaly and some central pulmonary venous congestion. Dictated by: Dictated on workstation # [id number]
[2018-07-26] MEDS: fentaNYL INJECTION 100 MCG/2 ML AMP IV PRN (08:49)
--- NOTE | 2018-07-26 10:46 | Progress Note ---
Subjective Time Seen by a Provider: 10:07 Subjective/Events-last exam Pt seen and examined, denies abdominal pain. Was coughing when I saw her. +BM, tolerating clears. Drain is serous. Events of last night noted, pt is sinus on monitor. Review of Systems Pulmonary: No Dyspnea; Cough Cardiovascular: No: Chest Pain, Palpitations Gastrointestinal: No: Nausea, Vomiting, Abdominal Pain Objective Exam Vital Signs Date Time Temp Pulse Resp B/P (MAP) Pulse Ox O2 Delivery O2 Flow Rate FiO2 07/26/18 10:00 80 26 163/62 (95) 95 Nasal Cannula 2.00 07/26/18 09:48 96 Nasal Cannula 3.00 07/26/18 09:00 72 23 150/57 (88) 97 Nasal Cannula 2.00 07/26/18 08:00 85 21 156/58 (90) 95 Nasal Cannula 2.00 07/26/18 07:00 73 07/26/18 07:00 76 16 159/59 (92) 94 Nasal Cannula 2.00 07/26/18 06:00 82 21 162/65 (97) 98 Nasal Cannula 2.00 07/26/18 05:00 66 22 150/71 (97) 98 Nasal Cannula 2.00 07/26/18 04:00 78 17 140/55 (83) 96 Nasal Cannula 2.00 07/26/18 04:00 Room Air 07/26/18 03:00 76 19 148/57 (87) 97 Nasal Cannula 2.00 07/26/18 02:24 97 Nasal Cannula 3.00 07/26/18 02:00 68 27 137/50 (79) 97 Nasal Cannula 2.00 07/26/18 01:00 70 07/26/18 01:00 70 26 128/94 (105) 98 Nasal Cannula 2.00 07/26/18 00:00 Room Air 07/26/18 00:00 81 20 135/60 (85) 97 Nasal Cannula 2.00 07/25/18 23:00 68 23 133/86 (102) 99 Nasal Cannula 2.00 07/25/18 22:00 66 26 123/62 (82) 98 Nasal Cannula 2.00 07/25/18 21:15 Nasal Cannula 2.00 07/25/18 21:00 84 28 137/59 (85) 93 Room Air 07/25/18 20:11 93 Nasal Cannula 3.00 07/25/18 20:00 79 25 154/53 (86) 93 Room Air 07/25/18 20:00 98.8 07/25/18 20:00 Room Air 07/25/18 19:00 78 27 150/70 (96) 93 Room Air 07/25/18 19:00 82 07/25/18 18:00 76 21 147/76 (99) 94 Room Air 07/25/18 17:00 70 21 146/64 (91) 93 Room Air 07/25/18 16:26 98.9 07/25/18 16:00 90 25 135/73 (93) 91 Room Air 07/25/18 16:00 Room Air 07/25/18 15:00 84 26 164/83 (110) 92 Room Air 07/25/18 14:31 93 Nasal Cannula 3.00 07/25/18 14:18 82 07/25/18 14:00 65 23 150/105 (120) 97 Room Air 07/25/18 13:00 76 26 154/73 (100) 96 Room Air 07/25/18 12:52 90 07/25/18 12:34 97.9 07/25/18 12:00 87 30 141/100 (114) 95 Room Air 07/25/18 12:00 Room Air 07/25/18 11:00 85 21 135/64 (87) 95 Nasal Cannula 2.00 I & O 07/26/18 07:00 Intake Total 4400 ml Output Total 1680 ml Balance 2720 ml Capillary Refill : Less Than 3 SecondsLess Than 3 Seconds General Appearance: No Apparent Distress, Chronically ill HEENT: Other (edentulous) Respiratory: Chest Non Tender, Lungs Clear, Normal Breath Sounds, No Accessory Muscle Use, No Respiratory Distress Cardiovascular: Regular Rate, Rhythm, No Murmur Peripheral Pulses: 2+ Dorsalis Pedis (R), 2+ Left Dors-Pedis (L), 2+ Radial Pulses (R), 2+ Radial Pulses (L) Gastrointestinal: soft; No distended; other (incisions are c/d/i) Results Lab Laboratory Tests 07/25/18 12:26: Glucometer 281H 07/25/18 18:00: Glucometer 242H 07/25/18 23:37: Glucometer 140H 07/26/18 03:16: White Blood Count 13.1H, Red Blood Count 3.27L, Hemoglobin 9.5L, Hematocrit 29L, Mean Corpuscular Volume 90, Mean Corpuscular Hemoglobin 29, Mean Corpuscular Hemoglobin Concent 32, Red Cell Distribution Width 15.2H, Platelet Count 154, Mean Platelet Volume 11.1H, Neutrophils (%) (Auto) 82H, Lymphocytes (%) (Auto) 8L, Monocytes (%) (Auto) 9, Eosinophils (%) (Auto) 1, Basophils (%) (Auto) 0, Neutrophils # (Auto) 10.7H, Lymphocytes # (Auto) 1.0, Monocytes # (Auto) 1.2H, Eosinophils # (Auto) 0.1, Basophils # (Auto) 0.0, Sodium Level 147H, Potassium Level 3.1L, Chloride Level 112H, Carbon Dioxide Level 20L, Anion Gap 15H, Blood Urea Nitrogen 45H, Creatinine 1.98H, Estimat Glomerular Filtration Rate 24, BUN/Creatinine Ratio 23, Glucose Level 125H, Calcium Level 8.3L, Phosphorus Level 3.4, Magnesium Level 1.3L, Amylase Level 58, Lipase 58 Microbiology 07/21/18 Blood Culture - Preliminary, Resulted No growth 07/23/18 MRSA Screen - Final, Complete MRSA not isolated 07/21/18 Urine Culture - Final, Complete NO GROWTH Assessment/Plan Assessment/Plan Assessment/Plan S/P Lap merced 1. Acute Pancreatitis with Necrotic Emmy-pancreatic fat 2. Acute Renal Failure - improving 3. Dehydration- improving 4. SVT on Cardizem drip Pt encouraged to use IS (had nurse get her one) and ambulate if possible; increase diet as tolerated. Continue Van drain to bulb suction. Ok to go to floor once ok with Cardiology. Clinical Quality Measures DVT/VTE Risk/Contraindication: Risk Factor Score Per Nursin RFS Level Per Nursing on Admit: 3=High СВЕТЛАНА LOMBARDI DO July 26, 2018 10:46
[2018-07-26] MEDS: PIPERACILLIN/TAZO 4.5 GM/NS 100 ML IV SCH ×4 (11:41→23:54)
[2018-07-26] MEDS: DILTIAZEM 180 MG (CARDIZEM CD) CAP PO SCH (12:53)
--- NOTE | 2018-07-26 13:05 | NUR ---
Pt transferred via bed at this time. Personal belongings with pt at time of transfer. Bedside report given to ANGEL WHITNEY who will assume pt care at this time.
--- NOTE | 2018-07-26 13:09 | NUR ---
PT TRANSFERRED TO ROOM 413, REPORT RECEIVED. PT RESTING IN BED.
[2018-07-26] MEDS: DILTIAZEM IV FOR DRIP 125 MG in NS (IVPB) 100 ML IV SCH (13:48)
--- NOTE | 2018-07-26 15:00 | NUR ---
BLOOD SUGAR RESULTS CALLED TO DR NAVA, DR NAVA STATED SHE WOULD PUT ORDERS IN.
--- NOTE | 2018-07-26 15:19 | Progress Note (SOAP) ---
Subjective Subjective/Events-last exam Tolerating clear liquids; +BM Review of Systems Time Seen by Provider: 10:45 Objective Exam Last Set of Vital Signs Vital Signs Date Time Temp Pulse Resp B/P (MAP) Pulse Ox O2 Delivery O2 Flow Rate FiO2 07/26/18 13:00 12 07/26/18 13:00 99.6 24 162/70 (100) 96 Nasal Cannula 1.50 07/25/18 09:48 28 Capillary Refill : Less Than 3 SecondsLess Than 3 Seconds I&O Intake and Output 07/26/18 00:00 Intake Total 4200 ml Output Total 1755 ml Balance 2445 ml Intake Oral 960 ml IV Total 3240 ml Output Urine Total 1525 ml Drainage Total 230 ml General: Alert, No Acute Distress Lungs: Clear to Auscultation Heart: Regular Rate Psych/Mental Status: Mood NL Results/Procedures Lab Laboratory Tests 07/25/18 18:00: Glucometer 242H 07/25/18 23:37: Glucometer 140H 07/26/18 03:16: White Blood Count 13.1H, Red Blood Count 3.27L, Hemoglobin 9.5L, Hematocrit 29L, Mean Corpuscular Volume 90, Mean Corpuscular Hemoglobin 29, Mean Corpuscular Hemoglobin Concent 32, Red Cell Distribution Width 15.2H, Platelet Count 154, Mean Platelet Volume 11.1H, Neutrophils (%) (Auto) 82H, Lymphocytes (%) (Auto) 8L, Monocytes (%) (Auto) 9, Eosinophils (%) (Auto) 1, Basophils (%) (Auto) 0, Neutrophils # (Auto) 10.7H, Lymphocytes # (Auto) 1.0, Monocytes # (Auto) 1.2H, Eosinophils # (Auto) 0.1, Basophils # (Auto) 0.0, Sodium Level 147H, Potassium Level 3.1L, Chloride Level 112H, Carbon Dioxide Level 20L, Anion Gap 15H, Blood Urea Nitrogen 45H, Creatinine 1.98H, Estimat Glomerular Filtration Rate 24, BUN/Creatinine Ratio 23, Glucose Level 125H, Calcium Level 8.3L, Phosphorus Level 3.4, Magnesium Level 1.3L, Amylase Level 58, Lipase 58 07/26/18 11:24: Glucometer 373H 07/26/18 14:49: Glucometer 489*H Microbiology 07/21/18 Blood Culture - Preliminary, Resulted No growth 07/23/18 MRSA Screen - Final, Complete MRSA not isolated 07/21/18 Urine Culture - Final, Complete NO GROWTH Assessment/Plan Assessment/Plan Assessment & Plan 07/26 - transfer to medical floor. (1) Pancreatitis Status: Acute Assessment & Plan: - General Surgery consulted, Patient NPO, IVFs 150cc/hr and IV pain meds 07/23: Pain improving, labs improving 07/24: Pain well controlled 07/25: Gallstone pancreatitis; s/p lap merced 07/24 Qualifiers: Qualified Codes: K85.10 - Biliary acute pancreatitis without necrosis or infection (2) Cholelithiasis Status: Acute Assessment & Plan: - General surgery consulted, patient likely needs surgery during this admission 07/23: Plan for Merced in AM 07/24: Surgery today, will start CLD per surgery 07/26: s/p lap merced 07/24 Qualifiers: Qualified Codes: K80.00 - Calculus of gallbladder with acute cholecystitis without obstruction (3) Acute kidney failure Status: Acute Assessment & Plan: - likely 2/2 dehydration, trending down, will continue to monitor 07/23: Improving, will continue to monitor 07/24: Trending down 07/25: Cr 2.37 (4.25 on admission); suspect CKD 07/26: Cr improving 1.98 (4) Lactic acidosis Status: Acute (5) Elevated LFTs Status: Acute (6) SVT (supraventricular tachycardia) Status: Acute Assessment & Plan: - Cardiology consulted, resolved with 5mg IV Lopressor 07/23: Started on meds for rate control 07/26: change Cardizem drip to po 180mg; continue Lopressor IV prn (7) CAD (coronary artery disease) Status: Chronic Qualifiers: Qualified Codes: I25.10 - Atherosclerotic heart disease of [place] coronary artery without angina pectoris (8) Diabetes Status: Chronic Assessment & Plan: A1c 01/2018 6.0 - on Metformin at home; will hold due to PATRICK/CKD; start Levemir 10U while in the hospital due to hyperglycemia Qualifiers: Qualified Codes: E11.22 - Type 2 diabetes mellitus with diabetic chronic kidney disease; N18.3 - Chronic kidney disease, stage 3 (moderate) (9) Hypernatremia Status: Acute Assessment & Plan: 07/26: changed IVF from LR to 1/2 NS; recheck in am Clinical Quality Measures DVT/VTE Risk/Contraindication: Risk Factor Score Per Nursin RFS Level Per Nursing on Admit: 3=High DIAN NAVA DO July 26, 2018 15:19
[2018-07-26] MEDS ORDERED: inSUlin ASPART (NovoLOG) 1 UNIT/0.01 ML (CHARGE PER UNIT) SC NR (15:23)
--- NOTE | 2018-07-26 19:58 | NUR ---
PRIOR TO B/P MEDICATIONS / PULSE WAS 78.
--- NOTE | 2018-07-26 19:59 | NUR ---
NEW ORDERS ALSO RECEIVED FOR AN ELEVATED BLOOD SUGAR OF 367. NEW ORDERS TO GIVE A 12 UNIT ONE TIME DOSE TN DR. NAVA.
[2018-07-26] MEDS ORDERED: inSUlin ASPART (NovoLOG) 1 UNIT/0.01 ML (CHARGE PER UNIT) SC ONE (20:00)
[2018-07-26] MEDS ORDERED: PIPERACILLIN/TAZO 4.5 GM VIAL (ZOSYN) IV ONE (23:38)
[2018-07-26] MEDS ORDERED: NS (IVPB) 100 ML ONE (23:39)
[2018-07-27] MEDS: RT-ALBUTEROL SULF 2.5 MG/3 ML PRE-MIX VIAL INH SCH ×6 (03:10→23:05)
[2018-07-27] MEDS: 1/2 NS IV SOLUTION 1,000 ML IV SCH ×2 (03:44→12:04)
[2018-07-27] MEDS: meTOprolol 5 MG/5 ML (LOPRESSOR) VIAL IV SCH ×6 (03:44→23:51)
[2018-07-27 03:51] VITALS: BP 148/70
[2018-07-27 05:28] LABS: BASOPHILS % (AUTO) 0 % (0-10); EOSINOPHILS # (AUTO) 0.3 10^3/uL (0.0-0.3); EOSINOPHILS % (AUTO) 2 % (0-10); HEMATOCRIT 29 % (35-52); HEMOGLOBIN 9.6 G/DL (11.5-16.0); LYMPHOCYTES # (AUTO) 0.9 X 10^3 (1.0-4.0); LYMPHOCYTES % (AUTO) 5 % (12-44); MEAN CORPUSCULAR HEMOGLOBIN 30 PG (25-34); MEAN CORPUSCULAR HGB CONC 33 G/DL (32-36); MEAN CORPUSCULAR VOLUME 91 FL (80-99); MEAN PLATELET VOLUME 10.5 FL (7.4-10.4); MONOCYTES # (AUTO) 1.3 X 10^3 (0.0-1.0); MONOCYTES % (AUTO) 7 % (0-12); NEUTROPHILS # (AUTO) 15.5 X 10^3 (1.8-7.8); NEUTROPHILS % (AUTO) 86 % (42-75); PLATELET COUNT 161 10^3/uL (130-400); RED CELL DISTRIBUTION WIDTH 15.1 % (10.0-14.5)
[2018-07-27 05:52] LABS: CALCIUM 8.2 MG/DL (8.5-10.1); CREATININE SERUM 1.68 MG/DL (0.60-1.30); MAGNESIUM 1.6 MG/DL (1.8-2.4)
[2018-07-27 06:02] LABS: LYMPHOCYTES % (MANUAL) 9 %; MONOCYTES % (MANUAL) 6 %; NEUTROPHILS % (MANUAL) 85 %
[2018-07-27] MEDS: inSUlin ASPART (NovoLOG) 1 UNIT/0.01 ML (CHARGE PER UNIT) SC SCH ×4 (06:09→19:57)
--- NOTE | 2018-07-27 07:49 | NUR ---
RENAL DOSED ZOSYN BACK TO 4.5G IV Q 8 HOURS (4 HOUR INFUSION) DUE TO IMPROVED SCR/RENAL FXN ESTIMATED CRCL ~ 23 (SCR 1.68)
[2018-07-27 08:00] VITALS: BP 139/64
[2018-07-27] MEDS: PIPERACILLIN/TAZO 4.5 GM/NS 100 ML IV SCH ×6 (08:15→23:49)
[2018-07-27] MEDS: DILTIAZEM 180 MG (CARDIZEM CD) CAP PO SCH (08:15)
--- NOTE | 2018-07-27 08:37 | Cardiology Progress Note ---
Subjective Date Seen by Provider: July 27, 2018 Time Seen by Provider: 08:37 Subjective/Events-last exam Patient sitting up in bed, no new complaints. Denies any chest pain. Appears to have some dyspnea at this time. Objective-Cardiology Exam Last Set of Vital Signs Vital Signs 07/25/18 07/27/18 09:48 08:00 Temp 99.6 Pulse 75 Resp 32 B/P (MAP) 139/64 (89) Pulse Ox 99 O2 Delivery Nasal Cannula O2 Flow Rate 3.00 FiO2 28 Capillary Refill : Less Than 3 SecondsLess Than 3 Seconds I&O Intake and Output 07/27/18 00:00 Intake Total 4510 ml Output Total 1840 ml Balance 2670 ml Intake Oral 1320 ml IV Total 3190 ml Output Urine Total 1525 ml Drainage Total 315 ml # Bowel Movements 2 General: Alert, No Acute Distress HEENT: Atraumatic, PERRLA Neck: Supple, No JVD, No Thyromegaly Lungs: Clear to Auscultation Heart: Regular Rate Abdomen: Other (decreased BS) Extremities: No Edema, No Tenderness/Swelling Skin: No Rashes, No Breakdown Neuro: Normal Speech, Cranial Nerves 3-12 NL Psych/Mental Status: Mood NL Results Lab Laboratory Tests 07/27/18 05:20 A/P-Cardiology Admission Diagnosis Acute pancreatitis Acute renal failure CAD HTN Assessment/Plan Gallstone pancreatitis. S/p lap merced on 07/24/18. Tolerative liquids, continue to monitor. Paroxysmal supraventricular tachycardia, had multiple episodes, probably atrial tachycardia responsive to IV beta blockers. Maintained on PO Cardizem, continue to monitor. Acute renal failure on chronic kidney disease stage IV, receiving IV fluid, avoid the use of DAVID inhibitor and/or ARB at this time. Renal function continues to slowly improve History of CVA, had an acute CVA in March 2018 with left MCA distribution thrombus, received TPA on March 08, 2018 noted to have small intracranial bleed on March 10, 2018, better at this time. No residual deficit was reported. Maintained on Plavix and ASA. Coronary artery disease, history of non-ST elevation myocardial infarction with elevated troponin of 1.5, conservative management in [facility], history of CABG, review of her record showed history of cardiac catheterization using multiple stents, the mid RCA had a Cypher 3.528 and 2.523, distal RCA reported Cypher 2.528, the RCA has another report of a stent done in May 2010 with Xience 3.5 x 38, the LAD there are report of a stent done in 2001 using MultiLink 2.7525 and in 2007 Xience 3.5 time 18. Stress test April 2018 showed breast attenuation with fixed defect involving the basal to mid anterolateral and inferolateral wall, stress score 14, SDS 4, ejection fraction 44 percent, currently asymptomatic. Continue with conservative management at this time and will consider catheterization if she become symptomatic Congestive heart failure, chronic compensated left ventricular systolic dysfunction, ischemic in nature, ejection fraction 35-40 percent. Continue on beta sirisha. DAVID-I or ARB contraindicated secondary to renal failure. Dual-chamber pacemaker implanted on March 01, 2013, send James done by Dr. Barrientos using ACCENT DR RF [id number], last checkup was done on April 10, 2018 showing longevity 7.5 years, atrial impedance is 400, ventricular impedance 460, P-wave 2.4 mV, R wave more than 12 mV, threshold for atrium 0.62 at 0.6 ms, ventricle 0.75 at 0.4 ms, atrial pacing 63 percent, ventricular pacing less than 1 percent. Continue on the same setting and monitor History of syncope with questionable hypotensive episode and vasovagal episode. Labile hypertension with episode of severe hypertension, continue to monitor blood pressure. Hyperlipidemia-Lipitor and Zetia discontinued on this admission secondary to pancreatitis. Hypothyroidism, managed by primary care physician Clinical Quality Measures DVT/VTE Risk/Contraindication: Risk Factor Score Per Nursin RFS Level Per Nursing on Admit: 3=High FARHAT LE July 27, 2018 08:37
--- NOTE | 2018-07-27 09:32 | Cardiology Progress Note ---
Subjective Date Seen by Provider: July 27, 2018 Time Seen by Provider: 09:26 Subjective/Events-last exam Patient is in bed, still having abdominal pain, lethargic, no chest pain Review of Systems General: No Chills, No Night Sweats; Fatigue, Malaise; No Appetite, No Other HEENT: No Head Aches, No Visual Changes, No Eye Pain, No Ear Pain, No Dysphasia, No Sinus Congestion, No Post Nasal Drip, No Sore Throat, No Other Pulmonary: Dyspnea; No Cough, No Pleuritic Chest Pain, No Other Cardiovascular: No: Chest Pain, Palpitations, Orthopnea, Paroxysmal Noc. Dyspnea, Edema, Lt Headedness, Other Gastrointestinal: Nausea, Abdominal Pain Objective-Cardiology Exam Last Set of Vital Signs Vital Signs 07/25/18 07/27/18 07/27/18 07/27/18 09:48 03:51 06:36 07:00 Temp 98.9 Pulse 76 Resp 24 B/P (MAP) 148/70 (96) Pulse Ox 94 O2 Delivery Nasal Cannula O2 Flow Rate 2.00 FiO2 28 Capillary Refill : Less Than 3 SecondsLess Than 3 Seconds I&O Intake and Output 07/27/18 00:00 Intake Total 4510 ml Output Total 1840 ml Balance 2670 ml Intake Oral 1320 ml IV Total 3190 ml Output Urine Total 1525 ml Drainage Total 315 ml # Bowel Movements 2 General: Alert, Oriented X3, Mild Distress HEENT: Atraumatic, PERRLA Neck: Supple, No JVD, No Thyromegaly Lungs: Clear to Auscultation, Other (Wheezing) Heart: Regular Rate, Normal S1, Normal S2 Abdomen: Other (decreased BS, abdominal pain) Extremities: No Clubbing, No Cyanosis, No Edema, No Tenderness/Swelling Skin: No Rashes, No Breakdown Neuro: Normal Speech, Cranial Nerves 3-12 NL Psych/Mental Status: Mood NL Results Lab Laboratory Tests 07/27/18 05:20 A/P-Cardiology Admission Diagnosis Acute pancreatitis Acute renal failure CAD HTN Assessment/Plan Gallstone pancreatitis. 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 Jean, still having abdominal pain. Paroxysmal supraventricular tachycardia, had multiple episodes, probably atrial tachycardia responsive to IV beta blockers, heart rate is better at this time. Maintained on Cardizem CD 180 mg daily and tolerating it well. Continue to monitor Acute renal failure on chronic kidney disease stage IV, receiving IV fluid, avoid the use of DAVID inhibitor and/or ARB at this time. Renal function continues to slowly improve History of CVA, had an acute CVA in March 2018 with left MCA distribution thrombus, received TPA on March 08, 2018 noted to have small intracranial bleed on March 10, 2018, better at this time. No residual deficit was reported. currently aspirin and Plavix are on hold. Continue to monitor Coronary artery disease, history of non-ST elevation myocardial infarction with elevated troponin of 1.5, conservative management in [facility], history of CABG, review of her record showed history of cardiac catheterization using multiple stents, the mid RCA had a Cypher 3.528 and 2.523, distal RCA reported Cypher 2.528, the RCA has another report of a stent done in May 2010 with Xience 3.5 x 38, the LAD there are report of a stent done in 2001 using MultiLink 2.7525 and in 2007 Xience 3.5 time 18. Stress test April 2018 showed breast attenuation with fixed defect involving the basal to mid anterolateral and inferolateral wall, stress score 14, SDS 4, ejection fraction 44 percent, currently asymptomatic. Continue with conservative management at this time and will consider catheterization if she become symptomatic Congestive heart failure, chronic compensated left ventricular systolic dysfunction, ischemic in nature, ejection fraction 35-40 percent. Continue on beta sirisha. DAVID-I or ARB contraindicated secondary to renal failure. Dual-chamber pacemaker implanted on March 01, 2013, send James done by Dr. Barrientos using ACCENT DR RF [id number], last checkup was done on April 10, 2018 showing longevity 7.5 years, atrial impedance is 400, ventricular impedance 460, P-wave 2.4 mV, R wave more than 12 mV, threshold for atrium 0.62 at 0.6 ms, ventricle 0.75 at 0.4 ms, atrial pacing 63 percent, ventricular pacing less than 1 percent. Continue on the same setting and monitor History of syncope with questionable hypotensive episode and vasovagal episode. Labile hypertension with episode of severe hypertension, continue to monitor blood pressure. Hyperlipidemia-Lipitor and Zetia discontinued on this admission secondary to pancreatitis. Hypothyroidism, managed by primary care physician Clinical Quality Measures DVT/VTE Risk/Contraindication: Risk Factor Score Per Nursin RFS Level Per Nursing on Admit: 3=High JAC MABRY MD July 27, 2018 09:32
--- NOTE | 2018-07-27 10:09 | Progress Note-Hospitalist ---
Subjective HPI/CC On Admission Date Seen by Provider: July 27, 2018 Time Seen by Provider: 09:30 Subjective/Events-last exam Patient appears very debilitated since last treated by this examiner after she suffered a CVA and was sent to NH at DC from [facility]. Patient still complaining of abdominal pain Dr Borges and I conferred. Patient from a NH Labs reviewed. Overall severe debility with very poor prognosis Needs DNR discussion Patient not reliable in providing any information Review of Systems General: Fatigue Gastrointestinal: Abdominal Pain Objective Exam Vital Signs Vital Signs Date Time Temp Pulse Resp B/P (MAP) Pulse Ox O2 Delivery O2 Flow Rate FiO2 07/27/18 10:31 93 Nasal Cannula 2.00 07/27/18 08:00 99.6 75 32 139/64 (89) 07/25/18 09:48 28 Capillary Refill : Less Than 3 SecondsLess Than 3 Seconds General Appearance: No Apparent Distress, WD/WN, Chronically ill HEENT: Other (edentulous) Respiratory: Chest Non Tender, Lungs Clear, No Accessory Muscle Use, No Respiratory Distress, Decreased Breath Sounds Cardiovascular: Regular Rate, Rhythm, No Murmur Gastrointestinal: Guarding, Tenderness Rectal: Deferred Back: No CVA Tenderness Skin: Normal Color, Warm/Dry Results/Procedures Lab Laboratory Tests 07/27/18 05:20 Patient resulted labs reviewed. Assessment/Plan Assessment and Plan Assess & Plan/Chief Complaint Assessment: Pancreatitis s/p choly 07/24/18 Severe debility CVA hx with major residual requiring NH placement permanently Renal failure Plan: Monitor labs Poor prognosis Evaluate living will I would recommend DNR Diagnosis/Problems Diagnosis/Problems (1) Pancreatitis Status: Acute Qualifiers: Chronicity: acute Pancreatitis type: biliary Acute pancreatitis co mplication: unspecified Qualified Codes: K85.10 - Biliary acute pancreatitis without necrosis or infection (2) Cholelithiasis Status: Resolved Assessment & Plan: s/p choly 07/24/18 Qualifiers: Cholelithiasis location: gallbladder Cholecystitis presence: with merced cystitis Cholecystitis acuity: acute Biliary obstruction: without biliary obstruction Qualified Codes: K80.00 - Calculus of gallbladder with acute cholecystitis without obstruction Resolution Date/Time: 07/27/18 @ 13:17 (3) Lactic acidosis Status: Resolved Resolution Date/Time: 07/27/18 @ 13:17 (4) Confusion Status: Chronic (5) Expressive aphasia Status: Chronic (6) Cerebrovascular accident (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 Status: Chronic (7) CAD (coronary artery disease) Status: Chronic Qualifiers: Coronary Disease-Associated Artery/Lesion type: [place] artery [place] vs. transplanted heart: [place] heart Associated angina: without angina Qualified Codes: I25.10 - Atherosclerotic heart disease of [place] coronary artery without angina pectoris (8) Acute kidney failure Status: Resolved Resolution Date/Time: 07/27/18 @ 13:17 (9) SVT (supraventricular tachycardia) Status: Resolved Resolution Date/Time: 07/27/18 @ 13:17 (10) Elevated LFTs Status: Acute (11) Diabetes Status: Chronic Qualifiers: Diabetes mellitus type: type 2 Diabetes mellitus halfway insulin use: without halfway use Diabetes mellitus complication status: with kidney complications Diabetes mellitus complication detail: with chronic kidney disease Chronic kidney disease stage: stage 3 (moderate) Qualified Codes: E 11.22 - Type 2 diabetes mellitus with diabetic chronic kidney disease; N18.3 - Chronic kidney disease, stage 3 (moderate) (12) Hypernatremia Status: Acute Clinical Quality Measures DVT/VTE Risk/Contraindication: Risk Factor Score Per Nursin RFS Level Per Nursing on Admit: 3=High ERVIN TRAN DO July 27, 2018 10:09
--- NOTE | 2018-07-27 11:26 | Pulmonary Progress Note ---
Subjective Time Seen by a Provider: 11:21 Subjective/Events-last exam Pt denies SOB or productive cough. Sepsis Event Evaluation Height, Weight, BMI Height: 5'0.00" Weight: 151lbs. 3.0oz. 68.405137ui; 28.7 BMI Method:Stated Exam Exam Vital Signs Date Time Temp Pulse Resp B/P (MAP) Pulse Ox O2 Delivery O2 Flow Rate FiO2 07/27/18 10:31 93 Nasal Cannula 2.00 07/27/18 08:00 99 Nasal Cannula 3.00 07/27/18 08:00 99.6 75 32 139/64 (89) 99 Nasal Cannula 2.00 07/27/18 07:00 76 07/27/18 06:36 94 Nasal Cannula 2.00 07/27/18 03:51 98.9 75 24 148/70 (96) 98 Nasal Cannula 2.00 07/27/18 03:10 98 Nasal Cannula 2.00 07/27/18 01:00 68 07/26/18 23:12 99.0 75 22 161/66 (97) 98 Nasal Cannula 2.00 07/26/18 21:53 98 Nasal Cannula 2.00 07/26/18 20:00 99.4 78 24 148/61 (90) 97 Nasal Cannula 2.00 07/26/18 20:00 97 Nasal Cannula 3.00 07/26/18 19:00 82 07/26/18 18:44 95 Room Air 07/26/18 15:40 99.2 71 22 162/69 (100) 98 Nasal Cannula 1.50 07/26/18 13:00 12 07/26/18 13:00 99.6 68 24 162/70 (100) 96 Nasal Cannula 1.50 07/26/18 12:00 86 29 150/66 (94) 96 Nasal Cannula 2.00 07/26/18 12:00 Nasal Cannula 2.00 I & O 07/27/18 07:00 Intake Total 3690 ml Output Total 1640 ml Balance 2050 ml Height & Weight Height: 5'0.00" Weight: 151lbs. 3.0oz. 68.707144bz; 28.7 BMI Method:Stated General Appearance: No Apparent Distress, Chronically ill HEENT: Other (edentulous) Respiratory: Chest Non Tender, Lungs Clear, Normal Breath Sounds, No Accessory Muscle Use, No Respiratory Distress Cardiovascular: Regular Rate, Rhythm, No Murmur Capillary Refill: Less Than 3 Seconds Peripheral Pulses: 2+ Dorsalis Pedis (R), 2+ Left Dors-Pedis (L), 2+ Radial Pulses (R), 2+ Radial Pulses (L) Gastrointestinal: soft; No distended; other (incisions are c/d/i) Extremity: Normal Capillary Refill, Normal Inspection, No Pedal Edema 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, Oriented x3 Skin: Normal Color, Warm/Dry Results Lab Laboratory Tests 07/26/18 03:16 07/27/18 05:20 Assessment/Plan Assessment/Plan Pancreatitis with Necrotic Emmy-pancreatic fat -IVF - change to 1/2 NS secondary to hypernatremia Worsening Leukocytosis -Will restart Vanco Hypokalemia, hypomag -Replace Afib -Cardiology following S/p lap Maida Hypernatremia -Change LR to 1/2 NS Leukocytosis- No fever currently -Pt is on Zosyn currently start vanco -Continue to monitor Metabolic lactic acidosis -IVF Cholelithiasis s/p surgery -Surgery following Acute renal failure Intravascular dehydration SVT -Cardiology following HTN -Add hydralazine PRN Hypokalemia, hypopphos -Replace CAD SINCERE DALTON DO July 27, 2018 11:26
[2018-07-27] MEDS ORDERED: KCL 20 MEQ TAB (K-DUR) PO NR (11:30)
--- NOTE | 2018-07-27 11:34 | NUR ---
PTD VANCOMYCIN LABS: SCR 168 PLAN: VANCOMYCIN 1 GRAM IV DAILY, CHECK TROUGH PRIOR TO 3RD DOSE, HOLD IF LEVEL IS GREATER THAN 17 (CONCERN FOR ACCUMULATION)
--- NOTE | 2018-07-27 11:58 | Progress Note ---
Subjective Time Seen by a Provider: 11:12 Subjective/Events-last exam Pt seen and examined, states she does have some abdominal pain and is not really eating. Review of Systems General: Chills, Fatigue, Malaise Pulmonary: No Dyspnea, No Cough Cardiovascular: No: Chest Pain, Palpitations Gastrointestinal: No: Nausea, Abdominal Pain Objective Exam Vital Signs Date Time Temp Pulse Resp B/P (MAP) Pulse Ox O2 Delivery O2 Flow Rate FiO2 07/27/18 10:31 93 Nasal Cannula 2.00 07/27/18 08:00 99 Nasal Cannula 3.00 07/27/18 08:00 99.6 75 32 139/64 (89) 99 Nasal Cannula 2.00 07/27/18 07:00 76 07/27/18 06:36 94 Nasal Cannula 2.00 07/27/18 03:51 98.9 75 24 148/70 (96) 98 Nasal Cannula 2.00 07/27/18 03:10 98 Nasal Cannula 2.00 07/27/18 01:00 68 07/26/18 23:12 99.0 75 22 161/66 (97) 98 Nasal Cannula 2.00 07/26/18 21:53 98 Nasal Cannula 2.00 07/26/18 20:00 99.4 78 24 148/61 (90) 97 Nasal Cannula 2.00 07/26/18 20:00 97 Nasal Cannula 3.00 07/26/18 19:00 82 07/26/18 18:44 95 Room Air 07/26/18 15:40 99.2 71 22 162/69 (100) 98 Nasal Cannula 1.50 07/26/18 13:00 12 07/26/18 13:00 99.6 68 24 162/70 (100) 96 Nasal Cannula 1.50 07/26/18 12:00 86 29 150/66 (94) 96 Nasal Cannula 2.00 07/26/18 12:00 Nasal Cannula 2.00 I & O 07/27/18 07:00 Intake Total 3690 ml Output Total 1640 ml Balance 2050 ml Capillary Refill : Less Than 3 SecondsLess Than 3 Seconds General Appearance: No Apparent Distress, Chronically ill HEENT: Other (edentulous) Respiratory: Chest Non Tender, Lungs Clear, No Accessory Muscle Use, No Respiratory Distress, Decreased Breath Sounds (at bases) Cardiovascular: Regular Rate, Rhythm, No Murmur Peripheral Pulses: 0 Carotid (R), 0 Carotid (L), 0 Femoral (R), 0 Femoral (L), 0 Dorsalis Pedis (R); 2+ Dorsalis Pedis (R); 0 Left Dors-Pedis (L); 2+ Left Dors-Pedis (L); 0 Radial Pulses (R); 2+ Radial Pulses (R); 0 Radial Pulses (L); 2+ Radial Pulses (L) Gastrointestinal: soft, distended (mild), other (incisions are c/d/i. Drain output is motsly serous with some pink tinge) Extremity: Normal Capillary Refill, Normal Inspection, No Pedal Edema 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 Results Lab Laboratory Tests 07/26/18 14:49: Glucometer 489*H 07/26/18 19:41: Glucometer 367H 07/27/18 05:20: White Blood Count 18.0H, Red Blood Count 3.20L, Hemoglobin 9.6L, Hematocrit 29L, Mean Corpuscular Volume 91, Mean Corpuscular Hemoglobin 30, Mean Corpuscular Hemoglobin Concent 33, Red Cell Distribution Width 15.1H, Platelet Count 161, Mean Platelet Volume 10.5H, Neutrophils (%) (Auto) 86H, Lymphocytes (%) (Auto) 5L, Monocytes (%) (Auto) 7, Eosinophils (%) (Auto) 2, Basophils (%) (Auto) 0, Neutrophils # (Auto) 15.5H, Lymphocytes # (Auto) 0.9L, Monocytes # (Auto) 1.3H, Eosinophils # (Auto) 0.3, Basophils # (Auto) 0.0, Neutrophils % (Manual) 85, Lymphocytes % (Manual) 9, Monocytes % (Manual) 6, Sodium Level 142, Potassium Level 3.0L, Chloride Level 114H, Carbon Dioxide Level 17L, Anion Gap 11, Blood Urea Nitrogen 38H, Creatinine 1.68H, Estimat Glomerular Filtration Rate 30, BUN/Creatinine Ratio 23, Glucose Level 94, Calcium Level 8.2L, Magnesium Level 1.6L 07/27/18 06:08: Glucometer 91 07/27/18 09:45: Glucometer 216H Microbiology 07/21/18 Blood Culture - Preliminary, Resulted No growth 07/23/18 MRSA Screen - Final, Complete MRSA not isolated 5/14/19 Urine Culture - Final, Complete NO GROWTH Assessment/Plan Assessment/Plan Assessment/Plan WBC increasing most likely pulmonary in nature; CXR are worsening. Will get RT to work more with her. She must use IS. S/P Lap merced - diet as tolerated. She is having BM's 1. Acute Pancreatitis with Necrotic Emmy-pancreatic fat 2. Acute Renal Failure - improving 3. Dehydration- improving 4. SVT on Cardizem drip Clinical Quality Measures DVT/VTE Risk/Contraindication: Risk Factor Score Per Nursin RFS Level Per Nursing on Admit: 3=High СВЕТЛАНА LOMBARDI DO July 27, 2018 11:58
[2018-07-27 12:00] VITALS: BP 159/70
[2018-07-27] MEDS: MAGNESIUM 1 GM/100 ML IVPB 100 ML IV SCH ×3 (12:03→13:43)
[2018-07-27] MEDS: VANCOMYCIN INJECTION 1,000 MG in NS (IVPB) 250 ML IV SCH (12:29)
--- NOTE | 2018-07-27 15:11 | NUR ---
Initial visit: Pt is Christianity. She expressed desire for prayer that she would feel better. States she feels she is going through a tough trial now and needs God's strength.
[2018-07-27 16:00] VITALS: BP 136/69
[2018-07-27 20:00] VITALS: BP 170/72
[2018-07-28] VITALS (8 sets, daily range): BP systolic 167–196; BP diastolic 70–86
[2018-07-28] MEDS: RT-ALBUTEROL SULF 2.5 MG/3 ML PRE-MIX VIAL INH SCH ×4 (02:47→19:40)
--- NOTE | 2018-07-28 03:24 | NUR ---
right should 22 gauge iv access removed by Donovan Betancourt RN as it was leaking, catheter tip intact at the time of removal. patient also up to BSC at this time and had a loose BM. Patient tolerated well, this RN will cont to monitor this patient.
[2018-07-28] MEDS: meTOprolol 5 MG/5 ML (LOPRESSOR) VIAL IV SCH ×5 (04:10→20:18)
--- NOTE | 2018-07-28 04:10 | NUR ---
lopressor held as the b/p was 130/46 pulse was 65
[2018-07-28] MEDS: inSUlin ASPART (NovoLOG) 1 UNIT/0.01 ML (CHARGE PER UNIT) SC SCH ×4 (06:00→20:18)
[2018-07-28 06:44] LABS: BASOPHILS % (AUTO) 0 % (0-10); EOSINOPHILS # (AUTO) 0.3 10^3/uL (0.0-0.3); EOSINOPHILS % (AUTO) 2 % (0-10); HEMATOCRIT 27 % (35-52); HEMOGLOBIN 8.5 G/DL (11.5-16.0); LYMPHOCYTES # (AUTO) 0.7 X 10^3 (1.0-4.0); LYMPHOCYTES % (AUTO) 4 % (12-44); MEAN CORPUSCULAR HEMOGLOBIN 29 PG (25-34); MEAN CORPUSCULAR HGB CONC 32 G/DL (32-36); MEAN CORPUSCULAR VOLUME 90 FL (80-99); MEAN PLATELET VOLUME 10.6 FL (7.4-10.4); MONOCYTES % (AUTO) 5 % (0-12); NEUTROPHILS # (AUTO) 16.1 X 10^3 (1.8-7.8); NEUTROPHILS % (AUTO) 89 % (42-75); PLATELET COUNT 185 10^3/uL (130-400); RED CELL DISTRIBUTION WIDTH 15.1 % (10.0-14.5)
[2018-07-28 07:06] LABS: CALCIUM 8.1 MG/DL (8.5-10.1); CREATININE SERUM 1.73 MG/DL (0.60-1.30); MAGNESIUM 1.9 MG/DL (1.8-2.4); POTASSIUM 3.3 MMOL/L (3.6-5.0)
[2018-07-28] MEDS ORDERED: RT-ALBUTEROL SULF 2.5 MG/3 ML PRE-MIX VIAL INH PRN (07:15)
[2018-07-28] MEDS: PIPERACILLIN/TAZO 4.5 GM/NS 100 ML IV SCH ×4 (08:14→16:50)
--- NOTE | 2018-07-28 08:18 | Pulmonary Progress Note ---
Subjective Time Seen by a Provider: 08:18 Subjective/Events-last exam Pt denies pain or SOB. Sepsis Event Evaluation Height, Weight, BMI Height: 5'0.00" Weight: 155lbs. 3.0oz. 70.568388nv; 28.7 BMI Method:Stated Exam Exam Vital Signs Date Time Temp Pulse Resp B/P (MAP) Pulse Ox O2 Delivery O2 Flow Rate FiO2 07/28/18 07:00 72 07/28/18 06:58 94 Nasal Cannula 3.00 07/28/18 06:58 70 94 07/28/18 04:56 97.8 72 22 167/79 (108) 97 Nasal Cannula 3.00 07/28/18 02:47 95 Nasal Cannula 3.00 07/28/18 01:00 60 07/28/18 00:00 97.7 65 24 174/74 (107) 99 Nasal Cannula 3.00 07/27/18 23:05 95 Nasal Cannula 3.00 07/27/18 20:00 99.2 76 22 170/72 (104) 96 Nasal Cannula 3.00 07/27/18 20:00 87 Room Air 2.00 07/27/18 19:20 87 Room Air 07/27/18 19:00 67 07/27/18 16:00 98.2 74 24 136/69 (91) 99 Nasal Cannula 2.00 07/27/18 13:57 94 Nasal Cannula 2.00 07/27/18 12:49 62 07/27/18 12:00 100.0 76 28 159/70 (99) 97 Nasal Cannula 3.00 07/27/18 10:31 93 Nasal Cannula 2.00 I & O 07/28/18 07:00 Intake Total 2460 ml Output Total 1100 ml Balance 1360 ml Height & Weight Height: 5'0.00" Weight: 155lbs. 3.0oz. 70.310543cd; 28.7 BMI Method:Stated General Appearance: No Apparent Distress, WD/WN, Chronically ill HEENT: Other (edentulous) Respiratory: Chest Non Tender, Lungs Clear, No Accessory Muscle Use, No Respiratory Distress, Decreased Breath Sounds Cardiovascular: Regular Rate, Rhythm, No Murmur Capillary Refill: Less Than 3 Seconds Peripheral Pulses: 0 Carotid (R), 0 Carotid (L), 0 Femoral (R), 0 Femoral (L), 0 Dorsalis Pedis (R); 2+ Dorsalis Pedis (R); 0 Left Dors-Pedis (L); 2+ Left Dors-Pedis (L); 0 Radial Pulses (R); 2+ Radial Pulses (R); 0 Radial Pulses (L); 2+ Radial Pulses (L) Gastrointestinal: soft, distended (mild), other (incisions are c/d/i. Drain output is motsly serous with some pink tinge) Extremity: Normal Capillary Refill, Normal Inspection, No Pedal Edema 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 Skin: Normal Color, Warm/Dry Results Lab Laboratory Tests 07/27/18 05:20 07/28/18 06:08 Assessment/Plan Assessment/Plan Pancreatitis with Necrotic Emmy-pancreatic fat -IVF - 1/2 NS secondary to hypernatremia Worsening Leukocytosis -Will restart Vanco Hypokalemia -Replace Afib -Cardiology following S/p lap Maida Hypernatremia -1/2 NS Leukocytosis- No fever currently - Zosyn vanco -Continue to monitor Metabolic lactic acidosis -IVF Cholelithiasis s/p surgery -Surgery following Acute renal failure Intravascular dehydration SVT -Cardiology following HTN -Add hydralazine PRN Hypokalemia, -Replace CAD SINCERE DALTON DO July 28, 2018 08:18
[2018-07-28] MEDS: DILTIAZEM 180 MG (CARDIZEM CD) CAP PO SCH (08:21)
--- NOTE | 2018-07-28 08:48 | Cardiology Progress Note ---
Subjective Date Seen by Provider: July 28, 2018 Time Seen by Provider: 08:47 Subjective/Events-last exam Patient is in bed, still having abdominal pain and fatigue Review of Systems General: No Chills, No Night Sweats, No Fatigue, No Malaise, No Appetite, No Other HEENT: No Head Aches, No Visual Changes, No Eye Pain, No Ear Pain, No Dysphasia, No Sinus Congestion, No Post Nasal Drip, No Sore Throat, No Other Pulmonary: No Dyspnea, No Cough, No Pleuritic Chest Pain, No Other Cardiovascular: No: Chest Pain, Palpitations, Orthopnea, Paroxysmal Noc. Dyspnea, Edema, Lt Headedness, Other Objective-Cardiology Exam Last Set of Vital Signs Vital Signs 07/25/18 07/28/18 07/28/18 09:48 04:56 07:00 Temp 97.8 Pulse 72 Resp 22 B/P (MAP) 167/79 (108) FiO2 28 Capillary Refill : Less Than 3 SecondsLess Than 3 Seconds I&O Intake and Output 07/27/18 23:59 Intake Total 2560 ml Output Total 1175 ml Balance 1385 ml Intake Oral 1880 ml IV Total 680 ml Output Urine Total 1175 ml # Bowel Movements 4 General: Alert, Oriented X3, Mild Distress HEENT: Atraumatic, PERRLA Neck: Supple, No JVD, No Thyromegaly Lungs: Clear to Auscultation, Other (Wheezing) Heart: Regular Rate, Normal S1, Normal S2 Abdomen: Other (decreased BS, abdominal pain) Extremities: No Clubbing, No Cyanosis, No Edema, No Tenderness/Swelling Skin: No Rashes, No Breakdown Neuro: Normal Speech, Cranial Nerves 3-12 NL Psych/Mental Status: Mood NL Results Lab Laboratory Tests 07/28/18 06:08 A/P-Cardiology Admission Diagnosis Acute pancreatitis Acute renal failure CAD HTN Assessment/Plan Gallstone pancreatitis. 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 Jean, still having abdominal pain. Paroxysmal supraventricular tachycardia, had multiple episodes, probably atrial tachycardia responsive to IV beta blockers, heart rate is better at this time. Maintained on Cardizem CD 180 mg daily and tolerating it well. Continue to monitor Acute renal failure on chronic kidney disease stage IV, receiving IV fluid, avoid the use of DAVID inhibitor and/or ARB at this time. Renal function continues to slowly improve History of CVA, had an acute CVA in March 2018 with left MCA distribution thrombus, received TPA on March 08, 2018 noted to have small intracranial bleed on March 10, 2018, better at this time. No residual deficit was reported. currently aspirin and Plavix are on hold. Continue to monitor Coronary artery disease, history of non-ST elevation myocardial infarction with elevated troponin of 1.5, conservative management in [facility], history of CABG, review of her record showed history of cardiac catheterization using multiple stents, the mid RCA had a Cypher 3.528 and 2.523, distal RCA reported Cypher 2.528, the RCA has another report of a stent done in May 2010 with Xience 3.5 x 38, the LAD there are report of a stent done in 2001 using MultiLink 2.7525 and in 2007 Xience 3.5 time 18. Stress test April 2018 showed breast attenuation with fixed defect involving the basal to mid anterolateral and inferolateral wall, stress score 14, SDS 4, ejection fraction 44 percent, currently asymptomatic. Continue with conservative management at this time and will co nsider catheterization if she become symptomatic Congestive heart failure, chronic compensated left ventricular systolic dysfunction, ischemic in nature, ejection fraction 35-40 percent. Continue on beta sirisha. DAVID-I or ARB contraindicated secondary to renal failure. Dual-chamber pacemaker implanted on March 01, 2013, send James done by Dr. Barrientos using ACCENT DR RF [id number], last checkup was done on April 10, 2018 showing longevity 7.5 years, atrial impedance is 400, ventricular impedance 460, P-wave 2.4 mV, R wave more than 12 mV, threshold for atrium 0.62 at 0.6 ms, vent ricle 0.75 at 0.4 ms, atrial pacing 63 percent, ventricular pacing less than 1 percent. Continue on the same setting and monitor History of syncope with questionable hypotensive episode and vasovagal episode. Labile hypertension with episode of severe hypertension, continue to monitor blood pressure. Hyperlipidemia-Lipitor and Zetia discontinued on this admission secondary to pancreatitis. Hypothyroidism, managed by primary care physician Clinical Quality Measures DVT/VTE Risk/Contraindication: Risk Factor Score Per Nursin RFS Level Per Nursing on Admit: 3=High JAC MABRY MD July 28, 2018 08:48
--- NOTE | 2018-07-28 09:25 | Progress Note-Hospitalist ---
Subjective HPI/CC On Admission Date Seen by Provider: July 28, 2018 Time Seen by Provider: 09:00 Subjective/Events-last exam Patient seems to be slightly worse Difficult to ascertain due to such chronic debility since her stroke Patient denies pain currently Appreciate Steve Gore and Miranda Very complex issues and overall prognosis is guarde Review of Systems General: Fatigue Pulmonary: Dyspnea Gastrointestinal: Abdominal Pain Objective Exam Vital Signs Vital Signs Date Time Temp Pulse Resp B/P (MAP) Pulse Ox O2 Delivery O2 Flow Rate FiO2 07/28/18 15:28 98.8 69 24 196/79 (118) 98 Nasal Cannula 3.00 07/25/18 09:48 28 Capillary Refill : Less Than 3 SecondsLess Than 3 Seconds General Appearance: No Apparent Distress, WD/WN, Chronically ill, Other (frail, declined) HEENT: Other (edentulous) Respiratory: Chest Non Tender, Lungs Clear, No Accessory Muscle Use, No Respiratory Distress, Decreased Breath Sounds Cardiovascular: Regular Rate, Rhythm, No Murmur Gastrointestinal: Guarding, Tenderness Rectal: Deferred Back: No CVA Tenderness Extremity: Normal Capillary Refill, Normal Inspection, No Pedal Edema 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 Skin: Normal Color, Warm/Dry Results/Procedures Lab Laboratory Tests 07/28/18 06:08 Patient resulted labs reviewed. Assessment/Plan Assessment and Plan Assess & Plan/Chief Complaint Assessment: Pancreatitis s/p choly 07/24/18 Severe debility CVA hx with major residual requiring NH placement permanently Renal failure Plan: Monitor labs Poor prognosis Evaluate living will I would recommend DNR Appreciate Steve Bustamante Diagnosis/Problems Diagnosis/Problems (1) Pancreatitis Status: Acute Qualifiers: Chronicity: acute Pancreatitis type: biliary Acute pancreatitis complication: unspecified Qualified Codes: K85.10 - Biliary acute pancreatitis without necrosis or infection (2) Cholelithiasis Status: Resolved Assessment & Plan: s/p choly 07/24/18 Qualifiers: Cholelithiasis location: gallbladder Cholecystitis presence: with cholecystitis Cholecystitis acuity: acute Biliary obstruction: without b iliary obstruction Qualified Codes: K80.00 - Calculus of gallbladder with acu te cholecystitis without obstruction Resolution Date/Time: 07/27/18 @ 13:17 (3) Lactic acidosis Status: Resolved Resolution Date/Time: 07/27/18 @ 13:17 (4) Confusion Status: Chronic (5) Expressive aphasia Status: Chronic (6) Cerebrovascular accident (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 Status: Chronic (7) CAD (coronary artery disease) Status: Chronic Qualifiers: Coronary Disease-Associated Artery/Lesion type: [place] artery [place] vs. 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
[2018-07-28] MEDS: POTASSIUM CL 10MEQ/50ML IVPB 50 ML IV SCH ×6 (09:27→14:11)
[2018-07-28] MEDS: 1/2 NS IV SOLUTION 1,000 ML IV SCH (09:27)
[2018-07-28] MEDS: AA 4.25% W/LYTES IN D5W IV SOL 1,000 ML IV SCH (11:10)
--- NOTE | 2018-07-28 11:59 | Progress Note ---
Subjective Time Seen by a Provider: 10:26 Subjective/Events-last exam Pt seen and examined, states minimal abdominal pain. Appears to be breathing heavier. Review of Systems General: No Chills, No Night Sweats Pulmonary: Dyspnea Cardiovascular: No: Chest Pain, Palpitations Gastrointestinal: Abdominal Pain; No: Nausea, Vomiting Objective Exam Vital Signs Date Time Temp Pulse Resp B/P (MAP) Pulse Ox O2 Delivery O2 Flow Rate FiO2 07/28/18 08:00 97.0 77 18 168/70 (102) 97 Nasal Cannula 3.00 07/28/18 08:00 Room Air 2.00 07/28/18 07:00 72 07/28/18 06:58 94 Nasal Cannula 3.00 07/28/18 06:58 70 94 07/28/18 04:56 97.8 72 22 167/79 (108) 97 Nasal Cannula 3.00 07/28/18 02:47 95 Nasal Cannula 3.00 07/28/18 01:00 60 07/28/18 00:00 97.7 65 24 174/74 (107) 99 Nasal Cannula 3.00 07/27/18 23:05 95 Nasal Cannula 3.00 07/27/18 20:00 99.2 76 22 170/72 (104) 96 Nasal Cannula 3.00 07/27/18 20:00 87 Room Air 2.00 07/27/18 19:20 87 Room Air 07/27/18 19:00 67 07/27/18 16:00 98.2 74 24 136/69 (91) 99 Nasal Cannula 2.00 07/27/18 13:57 94 Nasal Cannula 2.00 07/27/18 12:49 62 07/27/18 12:00 100.0 76 28 159/70 (99) 97 Nasal Cannula 3.00 I & O 07/28/18 07:00 Intake Total 2460 ml Output Total 1100 ml Balance 1360 ml Capillary Refill : Less Than 3 SecondsLess Than 3 Seconds General Appearance: No Apparent Distress, WD/WN, Chronically ill HEENT: Other (edentulous) Respiratory: Chest Non Tender, Lungs Clear, No Respiratory Distress, Accessory Muscle Use, Decreased Breath Sounds Cardiovascular: Regular Rate, Rhythm, No Murmur Peripheral Pulses: 0 Carotid (R), 0 Carotid (L), 0 Femoral (R), 0 Femoral (L), 0 Dorsalis Pedis (R); 2+ Dorsalis Pedis (R); 0 Left Dors-Pedis (L); 2+ Left Dors-Pedis (L); 0 Radial Pulses (R); 2+ Radial Pulses (R); 0 Radial Pulses (L); 2+ Radial Pulses (L) Gastrointestinal: soft, distended (mild), other (incisions are c/d/i. Drain output is motsly serous with some pink tinge) Extremity: Normal Capillary Refill, Normal Inspection, No Pedal Edema 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 Skin: Normal Color, Warm/Dry Results Lab Laboratory Tests 07/27/18 15:36: Glucometer 279H 07/27/18 19:36: Glucometer 253H 07/28/18 05:35: Glucometer 223H 07/28/18 06:08: White Blood Count 18.0H, Red Blood Count 2.94L, Hemoglobin 8.5L, Hematocrit 27L, Mean Corpuscular Volume 90, Mean Corpuscular Hemoglobin 29, Mean Corpuscular Hemoglobin Concent 32, Red Cell Distribution Width 15.1H, Platelet Count 185, Mean Platelet Volume 10.6H, Neutrophils (%) (Auto) 89H, Lymphocytes (%) (Auto) 4L, Monocytes (%) (Auto) 5, Eosinophils (%) (Auto) 2, Basophils (%) (Auto) 0, Neutrophils # (Auto) 16.1H, Lymphocytes # (Auto) 0.7L, Monocytes # (Auto) 1.0, Eosinophils # (Auto) 0.3, Basophils # (Auto) 0.0, Sodium Level 143, Potassium Level 3.3L, Chloride Level 116H, Carbon Dioxide Level 16L, Anion Gap 11, Blood Urea Nitrogen 34H, Creatinine 1.73H, Estimat Glomerular Filtration Rate 29, BUN/Creatinine Ratio 20, Glucose Level 214H, Calcium Level 8.1L, Phosphorus Level 3.1, Magnesium Level 1.9 07/28/18 10:25: Glucometer 167H Microbiology 07/21/18 Blood Culture - Final, Complete No growth 07/23/18 MRSA Screen - Final, Complete MRSA not isolated 07/21/18 Urine Culture - Final, Complete NO GROWTH Assessment/Plan Assessment/Plan Assessment/Plan WBC still elevated; doubt due to abdomen, will get amylase and lipase. Still more likely pulmonary in nature; CXR are worsening. Increase RT work with her and she must use IS. S/P Lap merced - diet as tolerated. She is having BM's 1. Acute Pancreatitis with Necrotic Emmy-pancreatic fat 2. Acute Renal Failure - improving 3. Dehydration- improving 4. SVT on Cardizem drip Clinical Quality Measures DVT/VTE Risk/Contraindication: Risk Factor Score Per Nursin RFS Level Per Nursing on Admit: 3=High СВЕТЛАНА LOMBARDI DO July 28, 2018 11:59
[2018-07-28 12:18] LABS: AMYLASE 39 U/L (25-125); LIPASE 48 U/L (8-78)
--- NOTE | 2018-07-28 14:09 | Physical Therapy Evaluation ---
PT Evaluation-General Medical Diagnosis Admission Date July 21, 2018 at 18:31 Medical Diagnosis: weakness Onset Date: July 21, 2018 Therapy Diagnosis Therapy Diagnosis: impaired mobility, strength, endurance Height/Weight Height (Feet): 5 Height (Inches): 0.00 Weight (Pounds): 155 Weight (Ounces): 3.0 Precautions Precautions/Isolations: Fall Prevention, Standard Precautions, Pressure Ulcer Referral Physician: La Nena Mccullough DO Reason for Referral: Evaluation/Treatment Medical History Pertinent Medical History: CAD, DM, HTN, Renal Insufficiency Additional Medical History Past Medical History Surgeries: Yes (Knee surgery bilt) Cardiac, CABG, Eye Surgery, Hysterectomy, Orthopedic, Pacemaker Respiratory: No Currently Using CPAP: No Currently Using BIPAP: No Cardiac: Yes (STENTS 20 PACEMAKER, CHF) Coronary Artery Disease, High Cholesterol, Hypertension Neurological: Yes (aphasia/ataxia, Hemiplegia, 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 Prior/Core FIM Prior Level of Function Therapy Code Descriptions/Definitions Functional [place] Measure: 0=Not Assessed/NA 4=Minimal Assistance 1=Total Assistance 5=Supervision or Setup 2=Maximal Assistance 6=Modified [place] 3=Moderate Assistance 7=Complete [place] Therapy Quality Codes: 6 Independent with activity with or without an assistive device 5 Patient requires set up or clean up by helper. Patient completes activity by themselves 4 Supervision or touching assist (CGA). [place] provide cues , steadying assist 3 The helper provides less than half the effort to complete the activity 2 The helper provides more than half the effort to complete the activity 1 Dependent. The helper does all the effort to complete an activity 7 Patient refused to complete or attempt activity 9 The patient did not perform the activity before the current illness or injury 88 Not attempted due to Medical conditions or safety concerns Functional Abilities and Goals: Independent: Patient completed the activities by him/herself, with or without an assistive device, with no assistance from a helper. Needed Some Help: Patient needed partial assistance from another person to complete activities. Dependent: A helper completed the activities for the patient. Unknown: Not Applicable: Bed Mobility: 7 Transfers (B,C,W/C) (FIM): 7 Gait: 7 Indoor Mobility (Ambulation): Independent Patient states that she did not use a walker or cane previously. PT Evaluation-Current Subjective Patient in bed pre tx, agrees to PT, has 5/10 pain in her abdomen from recent cholecystectomy. Patient's speech is very hard to understand. Pt/Family Goals to be independent at home Objective Patient Orientation: Person, Unable to Assess Attachments: Oxygen, Perez Catheter, IV ROM/Strength ROM Lower Extremities WNL Strength Lower Extremities 3/5 gross bilateral lower extremities Neuromuscular (Tone, Coordination, Reflexes) NT Sensory Hearing: Functional Sensation Right Lower Extremit: Intact Sensation Left Lower Extremity: Intact Transfers Therapy Code Descriptions/Definitions Functional [place] Measure: 0=Not Assessed/NA 4=Minimal Assistance 1=Total Assistance 5=Supervision or Setup 2=Maximal Assistance 6=Modified [place] 3=Moderate Assistance 7=Complete [place] Transfers (B, C, W/C) (FIM): 3 Scootin Rollin Supine to/from Sit: 3 Patient needs assist with both legs during supine <-> sit. She seems to have a lot of difficulty breathing just laying in bed but her O2 sat is 99%. Patient was only able to tolerate sitting at the edge of the bed for about 30 seconds before needing to lay back down. Balance Sitting Static: Fair Sitting Dynamic: Fair Treatment supine BLE exercises x10 (GS, QS, AP, HS) Assessment/Needs Patient has profound debility and can only tolerate sitting at the edge of the bed for about 30 seconds. Rehab Potential: Guarded PT Short Term Goals Short Term Goals Time Frame: August 04, 2018 Transfers (B,C,W/C) (FIM): 4 Gait (FIM): 1 Gait Distance Comment: 10' Gait Level of Assist: 4 Gait Assistive Device: FWW PT Plan Problem List Problem List: Activity Tolerance, Functional Strength, Safety, Balance, Gait, Transfer, Bed Mobility Treatment/Plan Treatment Plan: Continue Plan of Care Treatment Plan: Bed Mobility, Concurrent Therapy, Education, Functional Activity Sergey, Functional Strength, Gait, Safety, Therapeutic Exercise, Transfers Treatment Duration: August 04, 2018 Frequency: 6 times per week Estimated Hrs Per Day: .25 hour per day (15-30') Patient and/or Family Agrees t: Yes Safety Risks/Education Patient Education: Transfer Techniques, Correct Positioning, Safety Issues Teaching Recipient: Patient Teaching Methods: Demonstration, Discussion Response to Teaching: Reinforcement Needed Discharge Recommendations Plan Patient will perform bed mobility and transfer training, balance and endurance training, functional strengthening, gait training, and education, to improve functional mobility and independence at home. Therapy D/C Recommendations: Home w/ Family Support, Detention (TCU/NH) Time/GCodes Time In: 1338 Time Out: 1355 Total Billed Treatment Time: 17 Total Billed Treatment 1 visit MICHAEL Leonard' RONAL POTTS PT July 28, 2018 14:09
[2018-07-28] MEDS: VANCOMYCIN INJECTION 1,000 MG in NS (IVPB) 250 ML IV SCH (14:12)
--- NOTE | 2018-07-28 14:16 | Occupational Therapy Eval ---
OT Evaluation-General/PLF Medical Diagnosis Admission Date July 21, 2018 at 18:31 Medical Diagnosis: weakness Onset Date: July 21, 2018 Therapy Diagnosis Therapy Diagnosis: impaired ADLs and mobility Height/Weight Height (Feet): 5 Height (Inches): 0.00 Weight (Pounds): 155 Weight (Ounces): 3.0 Precautions Precautions/Isolations: Fall Prevention, Standard Precautions, Pressure Ulcer Safety Interventions: None Weight Bear Status Weight Bearing Restriction: Weight Bearing/Tolerated Referral Physician: La Nena Mccullough DO Referral Reason: Activity Tolerance, Self Care, Evaluation/Treatment, Strengthening/ROM Medical History Pertinent Medical History: CAD, DM, HTN, Renal Insufficiency Current History per h&P: "78 yo F that states she has had several days of abdominal pain and decreased PO intake. States that the pain got so bad that she came in last night. Denies and N/V. She was found to have severe pancreatitis and gallbladder disease." s/p Laparoscopic cholecystectomy with attempted cholangiogram. Social History Home: Snf ADL-Prior Level of Function Therapy Code Descriptions/Definitions Functional [place] Measure: 0=Not Assessed/NA 4=Minimal Assistance 1=Total Assistance 5=Supervision or Setup 2=Maximal Assistance 6=Modified [place] 3=Moderate Assistance 7=Complete [place] Therapy Quality Codes: 6 Independent with activity with or without an assistive device 5 Patient requires set up or clean up by helper. Patient completes activity by themselves 4 Supervision or touching assist (CGA). [place] provide cues , steadying assist 3 The helper provides less than half the effort to complete the activity 2 The helper provides more than half the effort to complete the activity 1 Dependent. The helper does all the effort to complete an activity 7 Patient refused to complete or attempt activity 9 The patient did not perform the activity before the current illness or injury 88 Not attempted due to Medical conditions or safety concerns Functional Abilities and Goals: Independent: Patient completed the activities by him/herself, with or without an assistive device, with no assistance from a helper. Needed Some Help: Patient needed partial assistance from another person to complete activities. Dependent: A helper completed the activities for the patient. Unknown: Not Applicable: ADL PLOF Comments pt poor historian and mumbles answers to questions. pt only oriented to self. Drive Self: No OT Current Status Subjective pt laying in bed upon OT arrival. pt agreed to OT evaluation session. pt only oriented to self. pt stated she lives at home with her mother, father, and siblings, (pt from [facility] pt also stated current year is 1997. Pain Numeric Pain Scale: 0-No Pain (denies pain when asked) Mental Status/Objective Patient Orientation: Person Current Upper Extremity ROM WFL Upper Extremity Coordination finger to nose test: WFL Andrés UE Upper Extremity Sensation noted pt closed eyes and light touch tested. pt stated "your not touching me" when sensation was checked. unsure if pt truly does not have Andrés UE sensation or did not understand testing secondary to cognition. Upper Extremity Strength Andrés UE 3+/5 ADL-Treatment Therapy Code Descriptions/Definitions Functional [place] Measure: 0=Not Assessed/NA 4=Minimal Assistance 1=Total Assistance 5=Supervision or Setup 2=Maximal Assistance 6=Modified [place] 3=Moderate Assistance 7=Complete [place] Therapy Quality Codes: 6 Independent with activity with or without an assistive device 5 Patient requires set up or clean up by helper. Patient completes activity by themselves 4 Supervision or touching assist (CGA). [place] provide cues , steadying assist 3 The helper provides less than half the effort to complete the activity 2 The helper provides more than half the effort to complete the activity 1 Dependent. The helper does all the effort to complete an activity 7 Patient refused to complete or attempt activity 9 The patient did not perform the activity before the current illness or injury 88 Not attempted due to Medical conditions or safety concerns evaluation: based on clinical judgement/ testing: pt dependent for LB/ UB dressing, toileting, and functional transfer. pt required MIN A with MOD VC to completing grooming (wash face). pt required MAX A to perform supine <> sit. Education OT Patient Education: Transfer techniques Teaching Recipient: Patient Teaching Methods: Demonstration, Discussion Response to Teaching: Unable to Return Demonstration, Reinforcement Needed OT Short Term Goals Short Term Goals Eating(FIM): 5 Grooming(FIM): 4 Bathing(FIM): 4 (UB only) Transfers (B,C,W/C) (FIM): 4 Toilet/Commode Transfer(FIM): 4 1=Demonstrate adherence to instructed precautions during ADL tasks. 2=Patient will verbalize/demonstrate understanding of assistive de vices/modifications for ADL. 3=Patient will improve strength/tolerance for activity to enable patient to perform ADL's. OT Drywall Professional Goals Drywall Professional Goals Grooming(FIM): 5 Bathing(FIM): 5 (UB only) Bathing Location: L Arm, R Arm, Chest, Abdomen Transfers (B,C,W/C) (FIM): 5 Toilet/Commode Transfer(FIM): 5 1=Demonstrate adherence to instructed precautions during ADL tasks. 2=Patient will verbalize/demonstrate understanding of assistive devices/modifications for ADL. 3=Patient will improve strength/tolerance for activity to enable patient to perform ADL's. OT Education/Plan Problem List/Assessment Assessment: Decreased Activ Tolerance, Decreased Safety Aware, Decreased UE Strength, Dependent Transfers, Impaired Bed Mobility, Impaired Funct Balance, Impaired I ADL's, Impaired Self-Care Skills pt presents with functional limitations affecting area of ADL/ functional transfers. pt would benefit from OT services to increase independence with ADLS. functional transfers. recommended d/c to SNF Discharge Recommendations Plan/Recommendations: Continue POC Therapy D/C Recommendations: [facility] (TCU/NH) Target Placement SNF Treatment Plan/Plan of Care Treatment,Training & Education: Yes Patient would benefit from OT for education, treatment and training to promote independence in ADL's, mobility, safety and/or upper extremity function for ADL's. Plan of Care: ADL Retraining, Caregiver Training, Concurrent Therapy, Functional Mobility, Group Exercise/Act as Ind, UE Funct Exercise/Act Treatment Duration: Aug 18, 2018 Frequency: 5 times per week Estimated Hrs Per Day: .25 hour per day Agreement: Yes Rehab Potential: Guarded Time/GCodes Start Time: 13:55 Stop Time: 14:10 Billed Treatment Time EVM 15 minutes AUDREY LOGAN OT July 28, 2018 14:16
[2018-07-29] VITALS: BP 178/75
[2018-07-29] MEDS: PIPERACILLIN/TAZO 4.5 GM/NS 100 ML IV SCH ×8 (00:32→23:51)
[2018-07-29] MEDS: meTOprolol 5 MG/5 ML (LOPRESSOR) VIAL IV SCH ×3 (00:32→08:06)
[2018-07-29] MEDS: AA 4.25% W/LYTES IN D5W IV SOL 1,000 ML IV SCH ×2 (00:32→12:45)
[2018-07-29] MEDS: RT-ALBUTEROL SULF 2.5 MG/3 ML PRE-MIX VIAL INH SCH ×3 (03:16→20:27)
[2018-07-29 04:24] VITALS: BP 165/70
[2018-07-29] MEDS: inSUlin ASPART (NovoLOG) 1 UNIT/0.01 ML (CHARGE PER UNIT) SC SCH ×4 (06:08→21:37)
[2018-07-29 06:41] LABS: BASOPHILS % (AUTO) 0 % (0-10); EOSINOPHILS # (AUTO) 0.4 10^3/uL (0.0-0.3); EOSINOPHILS % (AUTO) 2 % (0-10); HEMATOCRIT 28 % (35-52); HEMOGLOBIN 9.1 G/DL (11.5-16.0); LYMPHOCYTES # (AUTO) 0.6 X 10^3 (1.0-4.0); LYMPHOCYTES % (AUTO) 3 % (12-44); MEAN CORPUSCULAR HEMOGLOBIN 30 PG (25-34); MEAN CORPUSCULAR HGB CONC 33 G/DL (32-36); MEAN CORPUSCULAR VOLUME 91 FL (80-99); MEAN PLATELET VOLUME 10.9 FL (7.4-10.4); MONOCYTES # (AUTO) 1.1 X 10^3 (0.0-1.0); MONOCYTES % (AUTO) 6 % (0-12); NEUTROPHILS # (AUTO) 17.6 X 10^3 (1.8-7.8); NEUTROPHILS % (AUTO) 89 % (42-75); PLATELET COUNT 200 10^3/uL (130-400); RED CELL DISTRIBUTION WIDTH 14.9 % (10.0-14.5); WHITE BLOOD COUNT 19.7 10^3/uL (4.3-11.0)
[2018-07-29 06:56] LABS: CALCIUM 8.4 MG/DL (8.5-10.1); CREATININE SERUM 1.62 MG/DL (0.60-1.30); MAGNESIUM 1.4 MG/DL (1.8-2.4); PHOSPHORUS 3.7 MG/DL (2.3-4.7); POTASSIUM 3.8 MMOL/L (3.6-5.0)
[2018-07-29 08:00] VITALS: BP 184/73
[2018-07-29] MEDS: DILTIAZEM 180 MG (CARDIZEM CD) CAP PO SCH (08:06)
--- NOTE | 2018-07-29 08:58 | Cardiology Progress Note ---
Subjective Date Seen by Provider: July 29, 2018 Time Seen by Provider: 08:56 Subjective/Events-last exam Patient sitting up in bed receiving breathing tx. Continues to have dyspnea and abdominal pain. Focused Exam Lactate Level 07/29/18 11:25: Lactic Acid Level 1.44 Objective-Cardiology Exam Last Set of Vital Signs Vital Signs 07/25/18 07/30/18 09:48 08:11 Temp 98.0 Pulse 103 Resp 28 B/P (MAP) 135/63 (87) Pulse Ox 97 O2 Delivery Nasal Cannula O2 Flow Rate 2.00 FiO2 28 Capillary Refill : Less Than 3 SecondsLess Than 3 Seconds I&O Intake and Output 07/30/18 00:00 Intake Total 1580 ml Output Total 1480 ml Balance 100 ml Intake Oral 560 ml IV Total 1020 ml Output Urine Total 1150 ml Drainage Total 330 ml # Bowel Movements 1 General: Alert, Oriented X3, Mild Distress HEENT: Atraumatic, PERRLA Neck: Supple, No JVD, No Thyromegaly Lungs: Clear to Auscultation, Other (Wheezing) Heart: Regular Rate, Normal S1, Normal S2 Abdomen: Other (decreased BS, abdominal pain) Extremities: No Clubbing, No Cyanosis, No Edema, No Tenderness/Swelling Skin: No Rashes, No Breakdown Neuro: Normal Speech, Cranial Nerves 3-12 NL Psych/Mental Status: Mood NL Results Lab Laboratory Tests 07/30/18 05:12 07/30/18 06:06 A/P-Cardiology Admission Diagnosis Acute pancreatitis Acute renal failure CAD HTN Assessment/Plan Gallstone pancreatitis. 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 Jean, still having abdominal pain. Paroxysmal supraventricular tachycardia, had multiple episodes, probably atrial tachycardia responsive to IV beta blockers, heart rate is better at this time. Maintained on Cardizem CD 180 mg daily and tolerating it well. Continue to monitor Acute renal failure on chronic kidney disease stage IV, receiving IV fluid, avoid the use of DAVID inhibitor and/or ARB at this time. Renal function continues to slowly improve History of CVA, had an acute CVA in March 2018 with left MCA distribution thrombus, received TPA on March 08, 2018 noted to have small intracranial bleed on March 10, 2018, better at this time. No residual deficit was reported. currently aspirin and Plavix are on hold. Continue to monitor Coronary artery disease, history of non-ST elevation myocardial infarction with elevated troponin of 1.5, conservative management in [facility], history of CABG, review of her record showed history of cardiac catheterization using multiple stents, the mid RCA had a Cypher 3.528 and 2.523, distal RCA reported Cypher 2.528, the RCA has another report of a stent done in May 2010 with Xience 3.5 x 38, the LAD there are report of a stent done in 2001 using MultiLink 2.7525 and in 2007 Xience 3.5 time 18. Stress test April 2018 showed breast attenuation with fixed defect involving the basal to mid anterolateral and inferolateral wall, stress score 14, SDS 4, ejection fraction 44 percent, currently asymptomatic. Continue with conservative management at this time and will consider catheterization if she become symptomatic Congestive heart failure, chronic compensated left ventricular systolic dysfunction, ischemic in nature, ejection fraction 35-40 percent. Continue on beta sirisha. DAVID-I or ARB contraindicated secondary to renal failure. Dual-chamber pacemaker implanted on March 01, 2013, send James done by Dr. Barrientos using ACCENT DR RF [id number], last checkup was done on April 10, 2018 showing longevity 7.5 years, atrial impedance is 400, ventricular impedance 460, P-wave 2.4 mV, R wave more than 12 mV, threshold for atrium 0.62 at 0.6 ms, ventricle 0.75 at 0.4 ms, atrial pacing 63 percent, ventricular pacing less than 1 percent. Continue on the same setting and monitor History of syncope with questionable hypotensive episode and vasovagal episode. Labile hypertension with episode of severe hypertension, blood pressure elevated, continue to monitor. Hyperlipidemia-Lipitor and Zetia discontinued on this admission secondary to pancreatitis. Hypothyroidism, managed by primary care physician Clinical Quality Measures DVT/VTE Risk/Contraindication: Risk Factor Score Per Nursin RFS Level Per Nursing on Admit: 3=High FARHAT LE July 29, 2018 08:58
[2018-07-29] MEDS ORDERED: POTASSIUM PHOSPHATE INJ 30 MM in NS (IVPB) 250 ML IV NR (09:15)
--- NOTE | 2018-07-29 09:17 | Pulmonary Progress Note ---
Subjective Time Seen by a Provider: 11:38 Subjective/Events-last exam Pt appears to be SOB with accessory muscle use however she denies pain or SOB at this time. Sepsis Event Evaluation Height, Weight, BMI Height: 5'0.00" Weight: 152lbs. 3.0oz. [id number]; 28.7 BMI Method:Stated Exam Exam Vital Signs Date Time Temp Pulse Resp B/P (MAP) Pulse Ox O2 Delivery O2 Flow Rate FiO2 07/29/18 08:44 97 Nasal Cannula 3.00 07/29/18 08:13 Nasal Cannula 2.00 07/29/18 08:00 97.0 69 22 184/73 (110) 99 Nasal Cannula 2.00 07/29/18 07:00 66 07/29/18 04:24 98.3 77 28 165/70 (101) 99 Nasal Cannula 3.00 07/29/18 03:16 96 Nasal Cannula 3.00 07/29/18 01:00 64 07/29/18 00:00 97.3 79 26 178/75 (109) 100 Nasal Cannula 3.00 07/28/18 20:14 92 184/78 (113) 07/28/18 20:00 Nasal Cannula 2.00 07/28/18 19:40 93 Room Air 07/28/18 19:15 97.2 83 24 193/86 (121) 94 Room Air 07/28/18 19:15 84 07/28/18 15:42 95 Nasal Cannula 3.00 07/28/18 15:28 98.8 69 24 196/79 (118) 98 Nasal Cannula 3.00 07/28/18 13:00 72 07/28/18 12:00 98.2 79 22 180/79 (112) 99 Nasal Cannula 3.00 I & O 07/29/18 07:00 Intake Total 1785 ml Output Total 1855 ml Balance -70 ml Height & Weight Height: 5'0.00" Weight: 152lbs. 3.0oz. 68.940124by; 28.7 BMI Method:Stated General Appearance: WD/WN, Chronically ill, Mild Distress, Other (frail, declined) HEENT: Other (edentulous) Respiratory: Chest Non Tender, Accessory Muscle Use, Decreased Breath Sounds Cardiovascular: Regular Rate, Rhythm, No Murmur Capillary Refill: Less Than 3 Seconds Peripheral Pulses: 0 Carotid (R), 0 Carotid (L), 0 Femoral (R), 0 Femoral (L), 0 Dorsalis Pedis (R); 2+ Dorsalis Pedis (R); 0 Left Dors-Pedis (L); 2+ Left Dors-Pedis (L); 0 Radial Pulses (R); 2+ Radial Pulses (R); 0 Radial Pulses (L); 2+ Radial Pulses (L) Gastrointestinal: soft, distended (mild), other (incisions are c/d/i. Drain output is motsly serous with some pink tinge) Extremity: Normal Capillary Refill, Normal Inspection, No Pedal Edema 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 Skin: Normal Color, Warm/Dry Results Lab Laboratory Tests 07/28/18 06:08 07/29/18 06:30 Assessment/Plan Assessment/Plan Pancreatitis with Necrotic Emmy-pancreatic fat -IVF - Worsening leukocytosis and metabolic acidosis -Will give 2 amps of bicarb -Will repeat CT of abd/pelvis however will not be able to give IV contrast secondary to renal failure -Surgery is following SOB -Repeat ABG -Check CXR -Will place pt on telemetry continuous pulse ox and end tidal c02 monitoring. Currently we have no available ICU beds per housekeeping associate. hypophos -Replace Afib -Cardiology following S/p lap Maida Leukocytosis- No fever currently - Seun alexandra -Continue to monitor Metabolic lactic acidosis -IVF Cholelithiasis s/p surgery -Surgery following Acute renal failure Intravascular dehydration SVT -Cardiology following HTN -Add hydralazine PRN Hypokalemia, -Replace SINCERE HARRY DO July 29, 2018 09:17
[2018-07-29] MEDS: fentaNYL INJECTION 100 MCG/2 ML AMP IV PRN (10:01)
--- NOTE | 2018-07-29 10:18 | NUR ---
PALLIATIVE CARE RN was asked to see patient in regards to declining health status and FULL CODE status. Patient is in room alert and oriented to person and place. She appears to have labored respiration with O2 on 3L NC. She denies difficulty breathing but report that she has pain everywhere (RN is giving PRN med). Pulses in LE are palpable 2+ and has some edema noted. Patient reports wanting to be a full cod. I am not fully sure she understands this so [place] [facility] [place] [facility] [place] has a [place] or a Living will. Currently patient does appear to be having difficulty with respirations as they are shallow and tachypneic. Ears are thin and not curling unsure if this is her usual.
[2018-07-29 10:26] LABS: ABG BASE EXCESS -8.1 MMOL/L (-2.5-2.5); ABG OXYGEN SATURATION 98 % (94-100); ABG PCO2 31 MMHG (35-45); ABG PH 7.35 (7.37-7.43); ABG PO2 92 MMHG (79-93); ABG TCO2 17.5 MMOL/L (21.0-31.0)
[2018-07-29 10:30] LABS: ALLENS TEST YES-POS; INSPIRED O2 2; PATIENT TEMP 98.3; VENTILATOR NO
--- NOTE | 2018-07-29 10:47 | Progress Note-Hospitalist ---
Subjective HPI/CC On Admission Date Seen by Provider: July 29, 2018 Time Seen by Provider: 09:45 Subjective/Events-last exam Pt declining. No contact with family is able to be made because they changed their phone nu mbers and did not notify the [facility]. Pt will have CT scan and workup by Dr. Gore will ensue after tsang cultured and evaluate for respiratory failure source. Pt has a very poor prognosis and it would be inhumane to perform CPR in a cardiac arrest/respiratory arrest situation and will not be in her best interest to perform those procedures so will confer with Dr. Gore, he agrees with that plan. Will perform workup for sepsis but overall her prognosis is very poor and if no family is available and have abandoned the responsibility to make decisions for the Pt I have two physicians that reiterate the DNR situation. Review of Systems General: Fatigue Pulmonary: Dyspnea Gastrointestinal: Abdominal Pain Focused Exam Lactate Level 07/29/18 11:25: Lactic Acid Level 1.44 Objective Exam Vital Signs Vital Signs Date Time Temp Pulse Resp B/P (MAP) Pulse Ox O2 Delivery O2 Flow Rate FiO2 07/29/18 15:55 98.7 85 20 166/73 (104) 97 Nasal Cannula 2.00 07/25/18 09:48 28 Capillary Refill : Less Than 3 SecondsLess Than 3 Seconds General Appearance: WD/WN, Chronically ill, Moderate Distress, Other (frail, declined) HEENT: Other (edentulous) Respiratory: Chest Non Tender, Lungs Clear, Accessory Muscle Use, Decreased Breath Sounds, Wheezing Cardiovascular: Regular Rate, Rhythm, No Murmur Gastrointestinal: Guarding, Tenderness Rectal: Deferred Back: No CVA Tenderness Extremity: Normal Capillary Refill, Normal Inspection, No Pedal Edema 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, Disoriented Skin: Normal Color, Warm/Dry Results/Procedures Lab Laboratory Tests 07/29/18 06:30 Patient resulted labs reviewed. Assessment/Plan Assessment and Plan Assess & Plan/Chief Complaint Assessment: Worsened clinical status Pancreatitis s/p choly 07/24/18 Severe debility CVA hx with major residual requiring NH placement permanently Renal failure Plan: Monitor labs Poor prognosis Evaluate living will I would recommend DNR Appreciate Steve Jean and Sofía Try to notify family if they can be contacted but they have changed all their phone numbers Diagnosis/Problems Diagnosis/Problems (1) Pancreatitis Status: Acute Qualifiers: Chronicity: acute Pancreatitis type: biliary Acute pancreatitis compl ication: unspecified Qualified Codes: K85.10 - Biliary acute pancreatitis without necrosis or infection (2) Cholelithiasis Status: Resolved Assessment & Plan: s/p choly 07/24/18 Qualifiers: Cholelithiasis location: gallbladder Cholecystitis presence: with cholecys titis Cholecystitis acuity: acute Biliary obstruction: without biliary obstruction Qualified Codes: K80.00 - Calculus of gallbladder with acute cholecystitis without obstruction Resolution Date/Time: 07/27/18 @ 13:17 (3) Lactic acidosis Status: Resolved Resolution Date/Time: 07/27/18 @ 13:17 (4) Confusion Status: Chronic (5) Expressive aphasia Status: Chronic (6) Cerebrovascular accident (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 Status: Chronic (7) CAD (coronary artery disease) Status: Chronic Qualifiers: Coronary Disease-Associated Artery/Lesion type: [place] artery [place] vs. transplanted heart: [place] heart Associated angina: without angina Qualified Codes: I25.10 - Atherosclerotic heart disease of [place] coronary artery without angina pectoris (8) Acute kidney failure Status: Resolved Resolution Date/Time: 07/27/18 @ 13:17 (9) SVT (supraventricular tachycardia) Status: Resolved Resolution Date/Time: 07/27/18 @ 13:17 (10) Elevated LFTs Status: Acute (11) Diabetes Status: Chronic Qualifiers: Diabetes mellitus type: type 2 Diabetes mellitus retirement insulin use: without termite technician use Diabetes mellitus complication status: with kidney complications Diabetes mellitus complication detail: with chronic kidney disease Chronic kidney disease stage: stage 3 (moderate) Qualified Codes: E11.22 - Type 2 diabetes mellitus with diabetic chronic kidney disease; N18.3 - Chronic kidney disease, stage 3 (moderate) (12) Hypernatremia Status: Acute Clinical Quality Measures DVT/VTE Risk/Contraindication: Risk Factor Score Per Nursin RFS Level Per Nursing on Admit: 3=High ERVIN TRAN DO July 29, 2018 10:47
[2018-07-29] MEDS ORDERED: TROUGH ORDER-PHARMACY XX ONE (11:00)
--- NOTE | 2018-07-29 11:13 | Occupational Ther Daily Note ---
OT Current Status-Daily Note Subjective Pt. grimaces when moved, but does not report a pain level. Appearance Pt. in bed. Clear liquid diet is in front of her. Pt. is not initiating eating food. Mental Status/Objective Patient Orientation: Confused, Mumbles Therapy Code Descriptions/Definitions Functional Chambers Measure: 0=Not Assessed/NA 4=Minimal Assistance 1=Total Assistance 5=Supervision or Setup 2=Maximal Assistance 6=Modified Chambers 3=Moderate Assistance 7=Complete Chambers ADL-Treatment Eating (FIM): 2 (Pt. does not initiate eating or drinking. Requires max cues. Does take cup in hand when given to her a couple of times. Otherwise, requires straw to be put to her mouth. Does not initiate taking spoon, so jello is fed to her.) Grooming (FIM): 4 (Pt. does wash her face when warm wash cloth is given to her.) Bathing (FIM): 1 Lower Body Dressing (FIM): 1 Toileting (FIM): 1 Transfers (B, C, W/C) (FIM): 1 After feeding task, OT encouraged pt to turn to side for re-positioning. Required dependent assist with this. Noted that pt. fully incontinent of bowel in bed. Nurse aide came in to assist as well. Pt. fully changed and cleansed at bed level. Pt. dependent with all tasks and does not initiate assisting. Linens on bed changed and pt. repositioned to comfort level. All needs met. Education OT Patient Education: Correct positioning, Modified ADL techniques, Progress toward Goal/Update tx plan, Purpose of tx/functional activities, Reviewed precautions, Rehab process, Transfer techniques Teaching Recipient: Patient Teaching Methods: Demonstration, Discussion Response to Teaching: Unable to Return Demonstration, Unable to Comprehend OT Short Term Goals Short Term Goals Eating(FIM): 5 Grooming(FIM): 4 Bathing(FIM): 4 (UB only) Transfers (B,C,W/C) (FIM): 4 Toilet/Commode Transfer(FIM): 4 1=Demonstrate adherence to instructed precautions during ADL tasks. 2=Patient will verbalize/demonstrate understanding of assistive devices/modifications for ADL. 3=Patient will improve strength/tolerance for activity to enable patient to perform ADL's. OT Dance Artist Goals Dance Artist Goals Grooming(FIM): 5 Bathing(FIM): 5 (UB only) Bathing Location: L Arm, R Arm, Chest, Abdomen Transfers (B,C,W/C) (FIM): 5 Toilet/Commode Transfer(FIM): 5 1=Demonstrate adherence to instructed precautions during ADL tasks. 2=Patient will verbalize/demonstrate understanding of assistive devices/modifications for ADL. 3=Patient will improve strength/tolerance for activity to enable patient to perform ADL's. OT Education/Plan Problem List/Assessment Assessment: Decreased Activ Tolerance, Decreased Safety Aware, Decreased UE Strength, Dependent Transfers, Impaired Bed Mobility, Impaired Cognition, Imp aired Coordination, Impaired Funct Balance, Impaired I ADL's, Impaired Self-Care Skills, Restricted Funct UE ROM pt presents with functional limitations affecting area of ADL/ functional transfers. pt would benefit from OT services to increase independence with ADLS. functional transfers. recommended d/c to SNF Discharge Recommendations Plan/Recommendations: Continue POC Therapy D/C Recommendations: 24 hr Supervision, Intermediate Placement Treatment Plan/Plan of Care Treatment,Training & Education: Yes Patient would benefit from OT for education, treatment and training to promote independence in ADL's, mobility, safety and/or upper extremity function for ADL's. Plan of Care: ADL Retraining, Caregiver Training, Concurrent Therapy, Functional Mobility, Group Exercise/Act as Ind, UE Funct Exercise/Act Treatment Duration: Aug 18, 2018 Frequency: 5 times per week Estimated Hrs Per Day: .25 hour per day Agreement: Yes Rehab Potential: Guarded Time/GCodes Start Time: 09:05 Stop Time: 09:30 Total Time Billed (hr/min): 25 Billed Treatment Time 1, ADL x 2 CLAUDIA THOMPSON OT July 29, 2018 11:13
[2018-07-29] MEDS ORDERED: SODIUM BICARB 8.4% 50 MEQ/50 ML VIAL IV NR (11:33)
--- NOTE | 2018-07-29 11:45 | NUR ---
PALLIATIVE CARE RN has attempted to reach patients family. Called son Gautam, his phone is not accepting calls at this time. Next I called Criselda Ramírez who ML-P reports is responsive to calls and usually the son is with her. No answer but left a call back number. Hopefully she will get in touch with me to have a GOALS of CARE discussion. We are CO2 monitor, vitals q [address] Will be maintained on 4th due to no ICU beds.
--- NOTE | 2018-07-29 12:10 | NUR ---
Patient off floor at this time to CT.
[2018-07-29 12:13] LABS: BILIRUBIN,DIRECT 0.3 MG/DL (0.0-0.3); BILIRUBIN,TOTAL 0.5 MG/DL (0.1-1.0)
--- NOTE | 2018-07-29 12:25 | NUR ---
Patient back from CT, will continue to monitor.
[2018-07-29 12:49] VITALS: BP 153/74
--- NOTE | 2018-07-29 12:50 | Cardiology Progress Note ---
Subjective Date Seen by Provider: July 29, 2018 Time Seen by Provider: 12:47 Subjective/Events-last exam patient is sitting in bed, short of breath, complain of fatigue and loss of energy. Review of Systems General: No Chills, No Night Sweats; Fatigue, Malaise; No Appetite, No Other HEENT: No Head Aches, No Visual Changes, No Eye Pain, No Ear Pain, No Dysphasia, No Sinus Congestion, No Post Nasal Drip, No Sore Throat, No Other Pulmonary: Dyspnea; No Cough, No Pleuritic Chest Pain, No Other Cardiovascular: No: Chest Pain, Palpitations, Orthopnea, Paroxysmal Noc. Dyspnea, Edema, Lt Headedness, Other Focused Exam Lactate Level 07/29/18 11:25: Lactic Acid Level 1.44 Lactic Acid Level Laboratory Tests Test 07/29/18 11:25 Lactic Acid Level 1.44 MMOL/L (0.50-2.00) Objective-Cardiology Exam Last Set of Vital Signs Vital Signs 07/25/18 07/29/18 07/29/18 09:48 08:00 08:44 Temp 97.0 Pulse 69 Resp 22 B/P (MAP) 184/73 (110) Pulse Ox 97 O2 Delivery Nasal Cannula O2 Flow Rate 3.00 FiO2 28 Capillary Refill : Less Than 3 SecondsLess Than 3 Seconds I&O Intake and Output 07/29/18 00:00 Intake Total 1985 ml Output Total 1625 ml Balance 360 ml Intake Oral 1325 ml IV Total 660 ml Output Urine Total 1450 ml Drainage Total 85 ml Other 90 ml # Bowel Movements 2 General: Alert, Oriented X3, Mild Distress HEENT: Atraumatic, PERRLA Neck: Supple, No JVD, No Thyromegaly Lungs: Clear to Auscultation, Other (Wheezing) Heart: Regular Rate, Normal S1, Normal S2 Abdomen: Normal Bowel Sounds, No Hepatosplenomegaly, Other (decreased BS, abdominal pain) Extremities: No Clubbing, No Cyanosis, No Edema, No Tenderness/Swelling Skin: No Rashes, No Breakdown Neuro: Normal Speech, Cranial Nerves 3-12 NL Psych/Mental Status: Mood NL Results Lab Laboratory Tests 07/29/18 06:30 A/P-Cardiology Admission Diagnosis Acute pancreatitis Acute renal failure CAD HTN Assessment/Plan Gallstone pancreatitis. 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 Jean Acute respiratory failure, worsening shortness of breath today, going for CT of the chest. Managed by primary care team Paroxysmal supraventricular tachycardia, had multiple episodes, probably atrial tachycardia responsive to IV beta blockers, heart rate is better at this time. Maintained on Cardizem CD 180 mg daily and tolerating it well. Continue to monitor Acute renal failure on chronic kidney disease stage IV, receiving IV fluid, avoid the use of DAVID inhibitor and/or ARB at this time. Renal function continues to slowly improve History of CVA, had an acute CVA in March 2018 with left MCA distribution thrombus, received TPA on March 08, 2018 noted to have small intracranial bleed on March 10, 2018, better at this time. No residual deficit was reported. currently aspirin and Plavix are on hold. Continue to monitor Coronary artery disease, history of non-ST elevation myocardial infarction with elevated troponin of 1.5, conservative management in [facility], history of CABG, review of her record showed history of cardiac catheterization using multiple stents, the mid RCA had a Cypher 3.528 and 2.523, distal RCA reported Cypher 2.528, the RCA has another report of a stent done in May 2010 with Xience 3.5 x 38, the LAD there are report of a stent done in 2001 using MultiLink 2.7525 and in 2007 Xience 3.5 time 18. Stress test April 2018 showed breast attenuation with fixed defect involving the basal to mid anterolateral and inferolateral wall, stress score 14, SDS 4, ejection fraction 44 percent, currently asymptomatic. Continue with conservative management at this time and will consider catheterization if she become symptomatic Congestive heart failure, chronic compensated left ventricular systolic d ysfunction, ischemic in nature, ejection fraction 35-40 percent. Continue on beta sirisha. DAVID-I or ARB contraindicated secondary to renal failure. Dual-chamber pacemaker implanted on March 01, 2013, send James done by Dr. Barrientos using ACCENT DR RF [id number], last checkup was done on April 10, 2018 showing longevity 7.5 years, atrial impedance is 400, ventricular impedance 460, P-wave 2.4 mV, R wave more than 12 mV, threshold for atrium 0.62 at 0.6 ms, ventricle 0.75 at 0.4 ms, atrial pacing 63 percent, ventricular pacing less than 1 percent. Continue on the same setting and monitor History of syncope with questionable hypotensive episode and vasovagal episode. Labile hypertension with episode of severe hypertension, blood pressure elevated, continue to monitor. Hyperlipidemia-Lipitor and Zetia discontinued on this admission secondary to pancreatitis. Hypothyroidism, managed by primary care physician Clinical Quality Measures DVT/VTE Risk/Contraindication: Risk Factor Score Per Nursin RFS Level Per Nursing on Admit: 3=High JAC MABRY MD July 29, 2018 12:50
--- NOTE | 2018-07-29 12:52 | Physical Therapy Daily Note ---
PT Daily Note-Current Subjective Patient in bed pre tx, agrees to PT, when asked if she has any pain she says she has "zippo" pain meaning no pain. Appearance Patient in recliner post tx with nurse call, phone, tray, all needs met. Mental Status Patient Orientation: Person, Unable to Assess Patient's speech is very hard to understand. Transfers Therapy Code Descriptions/Definitions Functional [place] Measure: 0=Not Assessed/NA 4=Minimal Assistance 1=Total Assistance 5=Supervision or Setup 2=Maximal Assistance 6=Modified [place] 3=Moderate Assistance 7=Complete [place] Therapy Quality Codes: 6 Independent with activity with or without an assistive device 5 Patient requires set up or clean up by helper. Patient completes activity by themselves 4 Supervision or touching assist (CGA). [place] provide cues , steadying assist 3 The helper provides less than half the effort to complete the activity 2 The helper provides more than half the effort to complete the activity 1 Dependent. The helper does all the effort to complete an activity 7 Patient refused to complete or attempt activity 9 The patient did not perform the activity before the current illness or injury 88 Not attempted due to Medical conditions or safety concerns Transfers (B, C, W/C) (FIM): 3 Scootin Rollin Supine to/from Sit: 3 Sit to/from Stand: 4 Bed to/from Chair: 4 Mod assist for supine to sit, min assist for sit to stand. Patient seemed to have an easier time breathing compared to yesterday and she was able to sit on the side of the bed without difficulty. Gait Training Gait (FIM): 1 Distance: 5' Gait Level of Assist: 4 Gait Persons Needed: 1 Gait Assistive Device: FWW CGA, cues for positioning and safety. Small, uncoordinated steps but no LOB. Patient was SOB when she was finally able to sit down. Exercises Seated Therapy Exercises: Ankle pumps, Long arc quads, Hip flexion Seated Reps: 10 Treatments bed mobility and transfers, LE exercise Assessment Current Status: Fair Progress Improved mobility, patient was able to ambulate a few feet today. PT Short Term Goals Short Term Goals Time Frame: August 04, 2018 Transfers (B,C,W/C) (FIM): 4 Gait (FIM): 1 Gait Distance Comment: 10' Gait Level of Assist: 4 Gait Assistive Device: FWW PT Plan Problem List Problem List: Activity Tolerance, Functional Strength, Safety, Balance, Gait, Transfer, Bed Mobility, ROM Treatment/Plan Treatment Plan: Continue Plan of Care Treatment Plan: Bed Mobility, Concurrent Therapy, Education, Functional Activity Sergey, Functional Strength, Gait, Safety, Therapeutic Exercise, Davidson sfers Treatment Duration: August 04, 2018 Frequency: 6 times per week Estimated Hrs Per Day: .25 hour per day (15-30') Patient and/or Family Agrees t: Yes Safety Risks/Education Patient Education: Gait Training, Transfer Techniques, Correct Positioning, Safety Issues Teaching Recipient: Patient Teaching Methods: Demonstration, Discussion Response to Teaching: Reinforcement Needed Time/GCodes Time In: 1140 Time Out: 1151 Total Billed Treatment Time: 11 Total Billed Treatment 1 visit FA 11' RONAL POTTS PT July 29, 2018 12:52
--- NOTE | 2018-07-29 12:52 | Diagnostic Imaging Report ---
PROCEDURE: CT chest, abdomen, and pelvis without contrast. TECHNIQUE: Multiple contiguous axial images were obtained through the chest, abdomen, and pelvis without the use of intravenous contrast. Auto Exposure Controls were utilized during the CT exam to meet ALARA standards for radiation dose reduction. INDICATION: Shortness of breath and leukocytosis. COMPARISON: Comparison is made with CT abdomen and pelvis study from 07/21/2018. FINDINGS: CT CHEST: Changes of median sternotomy are noted. There is a left chest wall cardiac pacemaker. There are moderate-sized bilateral pleural effusions. No pericardial effusion is seen. There is some mild compressive atelectasis in the bilateral lower lobes. CT ABDOMEN AND PELVIS: No discrete liver mass is identified. The gallbladder appears to be surgically absent. No biliary duct dilatation is seen. There is diffuse enlargement of the pancreas with peripancreatic inflammatory stranding, similar to CT study one week earlier. This again is suggestive of acute pancreatitis. No well-formed fluid collection or pseudocyst is seen. No pancreatic ductal dilatation is identified. The spleen is normal in size. No adrenal mass is detected. Kidneys are without evidence of calculi or hydronephrosis. Aorta is calcified and nonaneurysmal. Bowel loops appear to be nonobstructed. No free fluid or fluid collection is identified in the abdomen or pelvis. No definite free air is seen. The bladder is decompressed by a Perez catheter. IMPRESSION: 1. Development of moderate-sized bilateral pleural effusions with associated bibasilar compressive atelectasis. 2. Continued diffuse enlargement of the pancreas with peripancreatic inflammatory stranding suggestive of pancreatitis. No pseudocyst formation is seen. 3. No evidence of abdominal or pelvic fluid collection or abscess. Dictated by: Dictated on workstation # [id number]
[2018-07-29] MEDS: VANCOMYCIN INJECTION 1,000 MG in NS (IVPB) 250 ML IV SCH (13:51)
[2018-07-29] MEDS: hydrALAZINE (APRESOLINE) 25 MG TAB PO SCH ×2 (13:55→21:37)
--- NOTE | 2018-07-29 14:11 | Progress Note ---
Subjective Time Seen by a Provider: 13:39 Subjective/Events-last exam Pt seen and examined, no changes but not looking better. States minimal abdominal pain. Nurse states WBC up again today. Review of Systems General: Chills, Night Sweats Pulmonary: Dyspnea; No Cough Cardiovascular: No: Chest Pain, Palpitations Gastrointestinal: Abdominal Pain Focused Exam Lactate Level 07/29/18 11:25: Lactic Acid Level 1.44 Lactic Acid Level Laboratory Tests Test 07/29/18 11:25 Lactic Acid Level 1.44 MMOL/L (0.50-2.00) Objective Exam Vital Signs Date Time Temp Pulse Resp B/P (MAP) Pulse Ox O2 Delivery O2 Flow Rate FiO2 07/29/18 12:49 97.7 77 24 153/74 (100) 94 Nasal Cannula 2.00 07/29/18 08:44 97 Nasal Cannula 3.00 07/29/18 08:13 Nasal Cannula 2.00 07/29/18 08:00 97.0 69 22 184/73 (110) 99 Nasal Cannula 2.00 07/29/18 07:00 66 07/29/18 04:24 98.3 77 28 165/70 (101) 99 Nasal Cannula 3.00 07/29/18 03:16 96 Nasal Cannula 3.00 07/29/18 01:00 64 07/29/18 00:00 97.3 79 26 178/75 (109) 100 Nasal Cannula 3.00 07/28/18 20:14 92 184/78 (113) 07/28/18 20:00 Nasal Cannula 2.00 07/28/18 19:40 93 Room Air 07/28/18 19:15 97.2 83 24 193/86 (121) 94 Room Air 07/28/18 19:15 84 07/28/18 15:42 95 Nasal Cannula 3.00 07/28/18 15:28 98.8 69 24 196/79 (118) 98 Nasal Cannula 3.00 I & O 07/29/18 07:00 Intake Total 1785 ml Output Total 1855 ml Balance -70 ml Capillary Refill : Less Than 3 SecondsLess Than 3 Seconds General Appearance: WD/WN, Chronically ill, Mild Distress HEENT: Other Respiratory: Chest Non Tender, Accessory Muscle Use, Decreased Breath Sounds Cardiovascular: Regular Rate, Rhythm, No Murmur Peripheral Pulses: 0 Carotid (R), 0 Carotid (L), 0 Femoral (R), 0 Femoral (L), 0 Dorsalis Pedis (R); 2+ Dorsalis Pedis (R); 0 Left Dors-Pedis (L); 2+ Left Dors-Pedis (L); 0 Radial Pulses (R); 2+ Radial Pulses (R); 0 Radial Pulses (L); 2+ Radial Pulses (L) Gastrointestinal: soft, distended, other Extremity: Normal Capillary Refill, Normal Inspection, No Pedal Edema 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 Skin: Normal Color, Warm/Dry Results Lab Laboratory Tests 07/28/18 15:17: Glucometer 378H 07/28/18 19:54: Glucometer 330H 07/29/18 05:39: Glucometer 235H 07/29/18 06:30: White Blood Count 19.7H, Red Blood Count 3.07L, Hemoglobin 9.1L, Hematocrit 28L, Mean Corpuscular Volume 91, Mean Corpuscular Hemoglobin 30, Mean Corpuscular Hemoglobin Concent 33, Red Cell Distribution Width 14.9H, Platelet Count 200, Mean Platelet Volume 10.9H, Neutrophils (%) (Auto) 89H, Lymphocytes (%) (Auto) 3L, Monocytes (%) (Auto) 6, Eosinophils (%) (Auto) 2, Basophils (%) (Auto) 0, Neutrophils # (Auto) 17.6H, Lymphocytes # (Auto) 0.6L, Monocytes # (Auto) 1.1H, Eosinophils # (Auto) 0.4H, Basophils # (Auto) 0.0, Sodium Level 142, Potassium Level 3.8, Chloride Level 116H, Carbon Dioxide Level 15L, Anion Gap 11, Blood Urea Nitrogen 39H, Creatinine 1.62H, Estimat Glomerular Filtration Rate 31, BUN/Creatinine Ratio 24, Glucose Level 219H, Calcium Level 8.4L, Phosphorus Level 3.7, Magnesium Level 1.4L 07/29/18 10:15: Blood Gas Puncture Site R RAD, Blood Gas Patient Temperature 98.3, Arterial Blood pH 7.35L, Arterial Blood Partial Pressure CO2 31L, Arterial Blood Partial Pressure O2 92, Arterial Blood HCO3 17*L, Arterial Blood Total CO2 17.5L, Arterial Blood Oxygen Saturation 98, Arterial Blood Base Excess -8.1L, Carlos Test YES-POS, Blood Gas Ventilator Setting NO, Blood Gas Inspired Oxygen 2, Glucometer 281H 07/29/18 11:25: Lactic Acid Level 1.44, Total Bilirubin 0.5, Direct Bilirubin 0.3, Aspartate Amino Transf (AST/SGOT) 34, Alanine Aminotransferase (ALT/SGPT) 40, Ammonia 14, B-Type Natriuretic Peptide 353.4H, Amylase Level 39, Lipase 63, Vancomycin Level Trough 14.2 Microbiology 07/21/18 Blood Culture - Final, Complete No growth 07/23/18 MRSA Screen - Final, Complete MRSA not isolated 07/21/18 Urine Culture - Final, Complete NO GROWTH Assessment/Plan Assessment/Plan Assessment/Plan WBC increased again; doubt due to abdomen amylase and lipase were normal and young drain is serous. Most likely pulmonary in nature continue max pulmonary care. Encourage ambulation and PO intake. S/P Lap merced - diet as tolerated. She is having BM's 1. Acute Pancreatitis with Necrotic Emmy-pancreatic fat 2. Acute Renal Failure - improving 3. Dehydration- improving 4. SVT on Cardizem drip Clinical Quality Measures DVT/VTE Risk/Contraindication: Risk Factor Score Per Nursin RFS Level Per Nursing on Admit: 3=High СВЕТЛАНА LOMBARDI DO July 29, 2018 14:11
--- NOTE | 2018-07-29 14:13 | NUR ---
Patient off floor to radiology at this time.
--- NOTE | 2018-07-29 14:34 | NUR ---
Patient back from radiology, will continue to monitor.
--- NOTE | 2018-07-29 15:36 | Diagnostic Imaging Report ---
EXAMINATION: PA and lateral chest at 02:22 p.m. INDICATION: Respiratory distress, shortness of breath. FINDINGS: The cardiomegaly, the sternotomy wires and surgical clips, and a left-sided pacemaker seen on the prior exam of 07/26/2018 are again evident and no different. The previous study did show atelectasis/infiltrate and fluid involving both lung bases. The CT chest, abdomen and pelvis exam performed earlier today also revealed bibasilar pneumonia/atelectasis and bilateral pleural effusions. On this study, there does not appear to have been any significant change. The upper lungs remain relatively clear. The mediastinum is not widened. The osseous structures are intact. IMPRESSION: There is persistent involvement of both lung bases by pneumonia/atelectasis and fluid. A follow-up study will be recommended for continued evaluation. Dictated by: Dictated on workstation # [id number]
[2018-07-29 15:55] VITALS: BP 166/73
[2018-07-29 19:54] VITALS: BP 164/71
[2018-07-29] MEDS: meTOprolol TARTRATE 25 MG (LOPRESSOR) TABLET PO SCH (21:37)
[2018-07-30] VITALS (8 sets, daily range): BP systolic 107–152; BP diastolic 60–71
[2018-07-30] MEDS: fentaNYL INJECTION 100 MCG/2 ML AMP IV PRN ×2 (00:22→10:34)
[2018-07-30] MEDS: RT-ALBUTEROL SULF 2.5 MG/3 ML PRE-MIX VIAL INH SCH ×4 (02:10→21:10)
[2018-07-30] MEDS: AA 4.25% W/LYTES IN D5W IV SOL 1,000 ML IV SCH ×2 (04:11→19:40)
--- NOTE | 2018-07-30 05:02 | Pulmonary Progress Note ---
Subjective Time Seen by a Provider: 05:02 Subjective/Events-last exam Pt is now DNR. Sepsis Event Evaluation Height, Weight, BMI Height: 5'0.00" Weight: 152lbs. 3.0oz. [id number]; 28.7 BMI Method:Stated Focused Exam Lactate Level 07/29/18 11:25: Lactic Acid Level 1.44 Exam Exam Vital Signs Date Time Temp Pulse Resp B/P (MAP) Pulse Ox O2 Delivery O2 Flow Rate FiO2 07/30/18 02:10 100 Nasal Cannula 2.00 07/30/18 01:00 63 07/30/18 00:50 97.6 76 26 152/66 (94) 99 Nasal Cannula 2.00 07/30/18 00:08 100 Nasal Cannula 2.00 07/29/18 20:27 100 Nasal Cannula 2.00 07/29/18 20:00 Nasal Cannula 2.00 07/29/18 19:54 97.4 86 20 164/71 (102) 97 Nasal Cannula 2.00 07/29/18 19:00 85 07/29/18 15:55 98.7 85 20 166/73 (104) 97 Nasal Cannula 2.00 07/29/18 12:49 97.7 77 24 153/74 (100) 94 Nasal Cannula 2.00 07/29/18 08:44 97 Nasal Cannula 3.00 07/29/18 08:13 Nasal Cannula 2.00 07/29/18 08:00 97.0 69 22 184/73 (110) 99 Nasal Cannula 2.00 07/29/18 07:00 66 I & O 07/30/18 07:00 Intake Total 2650 ml Output Total 950 ml Balance 1700 ml Height & Weight Height: 5'0.00" Weight: 152lbs. 3.0oz. 68.703018he; 28.7 BMI Method:Stated General Appearance: WD/WN, Chronically ill, Moderate Distress, Other (frail, declined) HEENT: Other (edentulous) Respiratory: Chest Non Tender, Lungs Clear, Accessory Muscle Use, Decreased Breath Sounds, Wheezing Cardiovascular: Regular Rate, Rhythm, No Murmur Capillary Refill: Less Than 3 Seconds Peripheral Pulses: 0 Carotid (R), 0 Carotid (L), 0 Femoral (R), 0 Femoral (L), 0 Dorsalis Pedis (R); 2+ Dorsalis Pedis (R); 0 Left Dors-Pedis (L); 2+ Left Dors-Pedis (L); 0 Radial Pulses (R); 2+ Radial Pulses (R); 0 Radial Pulses (L); 2+ Radial Pulses (L) Gastrointestinal: soft, distended, other Extremity: Normal Capillary Refill, Normal Inspection, No Pedal Edema 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, Disoriented Skin: Normal Color, Warm/Dry Results Lab Laboratory Tests 07/28/18 06:08 07/29/18 06:30 Assessment/Plan Assessment/Plan Pancreatitis with Necrotic Emmy-pancreatic fat -IVF - -AM labs pending Worsening leukocytosis and metabolic acidosis -CT scan reviewed SOB with bilateral pleural effusions -Pt is getting IVF for pancreatitis -Sp02 is 99% -Monitor -Will give 60mg of Lasix x 1 Afib -Cardiology following S/p lap Maida Leukocytosis- No fever currently - Zosyn vanco -Continue to monitor Metabolic lactic acidosis -IVF Cholelithiasis s/p surgery -Surgery following Acute renal failure Intravascular dehydration SVT -Cardiology following HTN -Add hydralazine PRN Hypokalemia, -Replace SINCERE HARRY DO July 30, 2018 05:02
[2018-07-30] MEDS: hydrALAZINE (APRESOLINE) 25 MG TAB PO SCH ×3 (05:42→22:57)
[2018-07-30] MEDS: inSUlin ASPART (NovoLOG) 1 UNIT/0.01 ML (CHARGE PER UNIT) SC SCH ×4 (05:42→21:02)
[2018-07-30] MEDS ORDERED: FUROSEMIDE 40 MG/4 ML INJ (LASIX) IVP NR (06:00)
[2018-07-30 06:24] LABS: BASOPHILS % (AUTO) 0 % (0-10); EOSINOPHILS # (AUTO) 0.4 10^3/uL (0.0-0.3); EOSINOPHILS % (AUTO) 2 % (0-10); HEMATOCRIT 27 % (35-52); HEMOGLOBIN 8.6 G/DL (11.5-16.0); LYMPHOCYTES # (AUTO) 0.7 X 10^3 (1.0-4.0); LYMPHOCYTES % (AUTO) 4 % (12-44); MEAN CORPUSCULAR HEMOGLOBIN 29 PG (25-34); MEAN CORPUSCULAR HGB CONC 32 G/DL (32-36); MEAN CORPUSCULAR VOLUME 89 FL (80-99); MEAN PLATELET VOLUME 10.9 FL (7.4-10.4); MONOCYTES # (AUTO) 1.1 X 10^3 (0.0-1.0); MONOCYTES % (AUTO) 6 % (0-12); NEUTROPHILS # (AUTO) 14.4 X 10^3 (1.8-7.8); NEUTROPHILS % (AUTO) 87 % (42-75); PLATELET COUNT 228 10^3/uL (130-400); RED CELL DISTRIBUTION WIDTH 14.9 % (10.0-14.5); WHITE BLOOD COUNT 16.5 10^3/uL (4.3-11.0)
[2018-07-30 06:50] LABS: CALCIUM 8.2 MG/DL (8.5-10.1); CREATININE SERUM 1.52 MG/DL (0.60-1.30); MAGNESIUM 1.4 MG/DL (1.8-2.4); PHOSPHORUS 4.3 MG/DL (2.3-4.7); POTASSIUM 3.7 MMOL/L (3.6-5.0)
[2018-07-30] MEDS: PIPERACILLIN/TAZO 4.5 GM/NS 100 ML IV SCH ×6 (08:04→23:00)
--- NOTE | 2018-07-30 08:13 | NUR ---
LATE ENTRY from 07/29 20:33 p.m. Palliative Care RN received return call from Criseldajj Ramírez and Gautam chandler son. I explained the reason for the call which was patient decline and nonresponsive to treatment. Explained she was worsening despite our aggressive treatment. We discussed CODE status and they indicated that the patient had verbalized to them a desire to not be resuscitated. I explained to them that we would continue with current treatment but if her heart were to stop or she would require intubation for respiratory decline we would NOT do this. I further explained that if she were to continue to be nonresponsive to treatment we would be calling to discuss change of care plan to comfort only. Notified of families desire for NO CODE.
--- NOTE | 2018-07-30 08:27 | Cardiology Progress Note ---
Subjective Date Seen by Provider: July 30, 2018 Time Seen by Provider: 08:24 Subjective/Events-last exam Patient asleep in bed, family member at bedside. Dyspnea appears to be much improved this morning. Focused Exam Lactate Level 07/29/18 11:25: Lactic Acid Level 1.44 Objective-Cardiology Exam Last Set of Vital Signs Vital Signs 07/25/18 07/30/18 09:48 08:11 Temp 98.0 Pulse 103 Resp 28 B/P (MAP) 135/63 (87) Pulse Ox 97 O2 Delivery Nasal Cannula O2 Flow Rate 2.00 FiO2 28 Capillary Refill : Less Than 3 SecondsLess Than 3 Seconds I&O Intake and Output 07/30/18 00:00 Intake Total 1580 ml Output Total 1480 ml Balance 100 ml Intake Oral 560 ml IV Total 1020 ml Output Urine Total 1150 ml Drainage Total 330 ml # Bowel Movements 1 General: Alert, Oriented X3, Mild Distress HEENT: Atraumatic, PERRLA Neck: Supple, No JVD, No Thyromegaly Lungs: Clear to Auscultation, Other (Wheezing) Heart: Regular Rate, Normal S1, Normal S2 Abdomen: Normal Bowel Sounds, No Hepatosplenomegaly, Other (decreased BS, abdominal pain) Extremities: No Clubbing, No Cyanosis, No Edema, No Tenderness/Swelling Skin: No Rashes, No Breakdown Neuro: Normal Speech, Cranial Nerves 3-12 NL Psych/Mental Status: Mood NL Results Lab Laboratory Tests 07/30/18 05:12 07/30/18 06:06 A/P-Cardiology Admission Diagnosis Acute pancreatitis Acute renal failure CAD HTN Assessment/Plan Gallstone pancreatitis. 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 Jean Acute respiratory failure, CT chest revealed bilat pleural effusion. Was given Lasix 60mg IV x [address] Gore following. Paroxysmal supraventricular tachycardia, had multiple episodes, probably atrial tachycardia responsive to IV beta blockers, heart rate is better at this time. Maintained on Cardizem CD 180 mg daily and tolerating it well. Continue to monitor Acute renal failure on chronic kidney disease stage IV, receiving IV fluid, avoid the use of DAVID inhibitor and/or ARB at this time. Renal function continues to slowly improve History of CVA, had an acute CVA in March 2018 with left MCA distribution thrombus, received TPA on March 08, 2018 noted to have small intracranial bleed on March 10, 2018, better at this time. No residual deficit was reported. currently aspirin and Plavix are on hold. Continue to monitor Coronary artery disease, history of non-ST elevation myocardial infarction with elevated troponin of 1.5, conservative management in [facility], history of CABG, review of her record showed history of cardiac catheterization using multiple stents, the mid RCA had a Cypher 3.528 and 2.523, distal RCA reported Cypher 2.528, the RCA has another report of a stent done in May 2010 with Xience 3.5 x 38, the LAD there are report of a stent done in 2001 using MultiLink 2.7525 and in 2007 Xience 3.5 time 18. Stress test April 2018 showed breast attenuation with fixed defect involving the basal to mid anterolateral and inferolateral wall, stress score 14, SDS 4, ejection fraction 44 percent, currently asymptomatic. Continue with conservative management at this time and will consider catheterization if she become symptomatic Congestive heart failure, chronic compensated left ventricular systolic dysfunction, ischemic in nature, ejection fraction 35-40 percent. Continue on beta sirisha. DAVID-I or ARB contraindicated secondary to renal failure. Dual-chamber pacemaker implanted on March 01, 2013, send James done by Dr. Barrientos using ACCENT DR RF [id number], last checkup was done on April 10, 2018 showing longevity 7.5 years, atrial impedance is 400, ventricular impedance 460, P-wave 2.4 mV, R wave more than 12 mV, threshold for atrium 0.62 at 0.6 ms, ventricle 0.75 at 0.4 ms, atrial pacing 63 percent, ventricular pacing less than 1 percent. Continue on the same setting and monitor History of syncope with questionable hypotensive episode and vasovagal episode. Labile hypertension with episode of severe hypertension, blood pressure better controlled. Continue to monitor. Hyperlipidemia-Lipitor and Zetia discontinued on this admission secondary to pancreatitis. Hypothyroidism, managed by primary care physician Clinical Quality Measures DVT/VTE Risk/Contraindication: Risk Factor Score Per Nursin RFS Level Per Nursing on Admit: 3=High FARHAT LE July 30, 2018 08:27
[2018-07-30] MEDS: DILTIAZEM 180 MG (CARDIZEM CD) CAP PO SCH (08:33)
[2018-07-30] MEDS: meTOprolol TARTRATE 25 MG (LOPRESSOR) TABLET PO SCH ×2 (08:33→21:02)
--- NOTE | 2018-07-30 08:33 | Progress Note-Hospitalist ---
Subjective HPI/CC On Admission Date Seen by Provider: July 30, 2018 Time Seen by Provider: 09:45 Subjective/Events-last exam Pt continues to decline Niece in law at bedside Pt in a lot of pain Palliative care consulted DNR secured last night Pt has a very poor prognosis CT shows worsening pancreatitis Needs comfort care Labs are stable Overall has such a poor prognosis that I would recommend end of life care Review of Systems Gastrointestinal: Abdominal Pain Focused Exam Lactate Level 07/29/18 11:25: Lactic Acid Level 1.44 Objective Exam Vital Signs Vital Signs Date Time Temp Pulse Resp B/P (MAP) Pulse Ox O2 Delivery O2 Flow Rate FiO2 07/30/18 15:48 98.4 82 30 127/60 (82) 97 Nasal Cannula 2.00 07/25/18 09:48 28 Capillary Refill : Less Than 3 SecondsLess Than 3 Seconds General Appearance: WD/WN, Chronically ill, Mild Distress, Other (frail, d eclined) HEENT: Other (edentulous) Respiratory: Chest Non Tender, Accessory Muscle Use, Decreased Breath Sounds Cardiovascular: Regular Rate, Rhythm, No Murmur Gastrointestinal: Guarding, Tenderness Rectal: Deferred Back: No CVA Tenderness Extremity: Normal Capillary Refill, Normal Inspection, No Pedal Edema 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 Skin: Normal Color, Warm/Dry Results/Procedures Lab Laboratory Tests 07/30/18 05:12 07/30/18 06:06 Patient resulted labs reviewed. Assessment/Plan Assessment and Plan Assess & Plan/Chief Complaint Assessment: Worsened clinical status Pancreatitis worsened s/p choly 07/24/18 Severe debility CVA hx with major residual requiring NH placement permanently Renal failure Plan: Monitor labs Poor prognosis Appreciate Steve Jean and Sofía DNR Diagnosis/Problems Diagnosis/Problems (1) Pancreatitis Status: Acute Qualifiers: Chronicity: acute Pancreatitis type: biliary Acute pancreatitis complication: unspecified Qualified Codes: K85.10 - Biliary acute pancreatitis without necrosis or infection (2) Cholelithiasis Status: Resolved Assessment & Plan: s/p choly 07/24/18 Qualifiers: Cholelithiasis location: gallbladder Cholecystitis presence: with cholecystitis Cholecystitis acuity: acute Biliary obstruction: without biliary obstruction Qualified Codes: K80.00 - Calculus of gallbladder with acute cholecystitis without obstruction Resolution Date/Time: 07/27/18 @ 13:17 (3) Lactic acidosis Status: Resolved Resolution Date/Time: 07/27/18 @ 13:17 (4) Confusion Status: Chronic (5) Expressive aphasia Status: Chronic (6) Cerebrovascular accident (CVA) involving left middle cerebral artery territo ry Status: Chronic (7) CAD (coronary artery disease) Status: Chronic Qualifiers: Coronary Disease-Associated Artery/Lesion type: elim ira artery [place] vs. transplanted heart: elim ira heart Associated angina: without angina Qualified Codes: I25.10 - Atherosclerotic heart disease of elim ira coronary artery without angina pectoris (8) Acute kidney failure Status: Resolved Resolution Date/Time: 07/27/18 @ 13:17 (9) SVT (supraventricular tachycardia) Status: Resolved Resolution Date/Time: 07/27/18 @ 13:17 (10) Elevated LFTs Status: Acute (11) Diabetes Status: Chronic Qualifiers: Diabetes mellitus type: type 2 Diabetes mellitus manager terminal insulin use: without usp use Diabetes mellitus complication status: with kidney complications Diabetes mellitus complication detail: with chronic kidney disease Chronic kidney disease stage: stage 3 (moderate) Qualified Codes: E11.22 - Type 2 diabetes mellitus with diabetic chronic kidney disease; N18.3 - Chronic kidney disease, stage 3 (moderate) (12) Hypernatremia Status: Acute Clinical Quality Measures DVT/VTE Risk/Contraindication: Risk Factor Score Per Nursin RFS Level Per Nursing on Admit: 3=High ERVIN TRAN DO July 30, 2018 08:33
[2018-07-30] MEDS ORDERED: KCL 20 MEQ TAB (K-DUR) PO NR (09:00)
--- NOTE | 2018-07-30 09:37 | Cardiology Progress Note ---
Subjective Date Seen by Provider: July 30, 2018 Time Seen by Provider: 09:34 Subjective/Events-last exam patient is laying down, still having shortness of breath Review of Systems General: No Chills, No Night Sweats, No Fatigue, No Malaise, No Appetite, No Other HEENT: No Head Aches, No Visual Changes, No Eye Pain, No Ear Pain, No Dysphasia, No Sinus Congestion, No Post Nasal Drip, No Sore Throat, No Other Pulmonary: No Dyspnea, No Cough, No Pleuritic Chest Pain, No Other Cardiovascular: No: Chest Pain, Palpitations, Orthopnea, Paroxysmal Noc. Dyspnea, Edema, Lt Headedness, Other Focused Exam Lactate Level 07/29/18 11:25: Lactic Acid Level 1.44 Objective-Cardiology Exam Last Set of Vital Signs Vital Signs 07/25/18 07/30/18 07/30/18 09:48 08:11 08:49 Temp 98.0 Pulse 103 Resp 28 B/P (MAP) 135/63 (87) Pulse Ox 98 O2 Delivery Nasal Cannula O2 Flow Rate 2.00 FiO2 28 Capillary Refill : Less Than 3 SecondsLess Than 3 Seconds I&O Intake and Output 07/30/18 00:00 Intake Total 1580 ml Output Total 1480 ml Balance 100 ml Intake Oral 560 ml IV Total 1020 ml Output Urine Total 1150 ml Drainage Total 330 ml # Bowel Movements 1 General: Alert, Oriented X3, Mild Distress HEENT: Atraumatic, PERRLA Neck: Supple, No JVD, No Thyromegaly Lungs: Clear to Auscultation, Other (Wheezing) Heart: Regular Rate, Normal S1, Normal S2 Abdomen: Normal Bowel Sounds, No Hepatosplenomegaly, Other (decreased BS, abdominal pain) Extremities: No Clubbing, No Cyanosis, No Edema, No Tenderness/Swelling Skin: No Rashes, No Breakdown Neuro: Normal Speech, Cranial Nerves 3-12 NL Psych/Mental Status: Mood NL Results Lab Laboratory Tests 07/30/18 05:12 07/30/18 06:06 A/P-Cardiology Admission Diagnosis Acute pancreatitis Acute renal failure CAD HTN Assessment/Plan Gallstone pancreatitis. 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 Jean Acute respiratory failure, CT chest revealed bilat pleural effusion, started on Lasix IV, I will evaluate echocardiogram Paroxysmal supraventricular tachycardia, had multiple episodes, probably atrial tachycardia responsive to IV beta blockers, heart rate is better at this time. Maintained on Cardizem CD 180 mg daily and tolerating it well. Continue to monitor Acute renal failure on chronic kidney disease stage IV, receiving IV fluid, avoid the use of DAVID inhibitor and/or ARB at this time. Renal function continues to slowly improve History of CVA, had an acute CVA in March 2018 with left MCA distribution t hrombus, received TPA on March 08, 2018 noted to have small intracranial bleed on March 10, 2018, better at this time. No residual deficit was reported. currently aspirin and Plavix are on hold. Continue to monitor Coronary artery disease, history of non-ST elevation myocardial infarction with elevated troponin of 1.5, conservative management in [facility], history of CABG, review of her record showed history of cardiac catheterization using multiple stents, the mid RCA had a Cypher 3.528 and 2.523, distal RCA reported Cypher 2.528, the RCA has another report of a stent done in May 2010 with Xience 3.5 x 38, the LAD there are report of a stent done in 2001 using MultiLink 2.7525 and in 2007 Xience 3.5 time 18. Stress test April 2018 showed breast attenuation with fixed defect involving the basal to mid anterolateral and inferolateral wall, stress score 14, SDS 4, ejection fraction 44 percent, currently asymptomatic. Continue with conservative management at this time and will consider catheterization if she become symptomatic Congestive heart failure, chronic compensated left ventricular systolic dysfunction, ischemic in nature, ejection fraction 35-40 percent. Continue on beta sirisha. DAVID-I or ARB contraindicated secondary to renal failure. Dual-chamber pacemaker implanted on March 01, 2013, send James done by Dr. Barrientos using ACCENT DR RF [id number], last checkup was done on April 10, 2018 showing longevity 7.5 years, atrial impedance is 400, ventricular impedance 460, P-wave 2.4 mV, R wave more than 12 mV, threshold for atrium 0.62 at 0.6 ms, ventricle 0.75 at 0.4 ms, atrial pacing 63 percent, ventricular pacing less than 1 percent. Continue on the same setting and monitor History of syncope with questionable hypotensive episode and vasovagal episode. Labile hypertension with episode of severe hypertension, blood pressure better controlled. Continue to monitor. Hyperlipidemia-Lipitor and Zetia discontinued on this admission secondary to pancreatitis. Hypothyroidism, managed by primary care physician Clinical Quality Measures DVT/VTE Risk/Contraindication: Risk Factor Score Per Nursin RFS Level Per Nursing on Admit: 3=High JAC MABRY MD July 30, 2018 09:37
[2018-07-30] MEDS: MAGNESIUM OXIDE (MAG-OX)400 MG TAB PO SCH ×2 (10:22→18:51)
[2018-07-30] MEDS: FUROSEMIDE 40 MG/4 ML INJ (LASIX) IVP SCH ×2 (10:22→18:51)
--- NOTE | 2018-07-30 10:31 | Progress Note ---
Subjective Time Seen by a Provider: 10:06 Subjective/Events-last exam Pt seen, respiratory is getting worse. She states she has some abdominal pain. Review of Systems General: Fatigue, Malaise Pulmonary: Dyspnea Cardiovascular: No: Chest Pain, Palpitations Gastrointestinal: Abdominal Pain Focused Exam Lactate Level 07/29/18 11:25: Lactic Acid Level 1.44 Objective Exam Vital Signs Date Time Temp Pulse Resp B/P (MAP) Pulse Ox O2 Delivery O2 Flow Rate FiO2 07/30/18 08:49 98 Nasal Cannula 2.00 07/30/18 08:11 98.0 103 28 135/63 (87) 97 Nasal Cannula 2.00 07/30/18 07:00 82 07/30/18 04:00 98.1 74 24 143/71 (95) 98 Nasal Cannula 2.00 07/30/18 02:10 100 Nasal Cannula 2.00 07/30/18 01:00 63 07/30/18 00:50 97.6 76 26 152/66 (94) 99 Nasal Cannula 2.00 07/30/18 00:08 100 Nasal Cannula 2.00 07/29/18 20:27 100 Nasal Cannula 2.00 07/29/18 20:00 Nasal Cannula 2.00 07/29/18 19:54 97.4 86 20 164/71 (102) 97 Nasal Cannula 2.00 07/29/18 19:00 85 07/29/18 15:55 98.7 85 20 166/73 (104) 97 Nasal Cannula 2.00 07/29/18 12:49 97.7 77 24 153/74 (100) 94 Nasal Cannula 2.00 I & O 07/30/18 07:00 Intake Total 2650 ml Output Total 1350 ml Balance 1300 ml Capillary Refill : Less Than 3 SecondsLess Than 3 Seconds General Appearance: Chronically ill, Mild Distress, Other (frail, declined) HEENT: PERRL/EOMI, Other (edentulous) Respiratory: Chest Non Tender, Accessory Muscle Use, Decreased Breath Sounds Cardiovascular: Regular Rate, Rhythm, No Murmur Peripheral Pulses: 0 Carotid (R), 0 Carotid (L), 0 Femoral (R), 0 Femoral (L), 0 Dorsalis Pedis (R); 2+ Dorsalis Pedis (R); 0 Left Dors-Pedis (L); 2+ Left Dors-Pedis (L); 0 Radial Pulses (R); 2+ Radial Pulses (R); 0 Radial Pulses (L); 2+ Radial Pulses (L) Gastrointestinal: soft, distended (mild), other (incisions are c/d/i. Drain output is motsly serous with some pink tinge) 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 Results Lab Laboratory Tests 07/29/18 11:25: Lactic Acid Level 1.44, Total Bilirubin 0.5, Direct Bilirubin 0.3, Aspartate Amino Transf (AST/SGOT) 34, Alanine Aminotransferase (ALT/SGPT) 40, Ammonia 14, B-Type Natriuretic Peptide 353.4H, Amylase Level 39, Lipase 63, Vancomycin Level Trough 14.2 07/29/18 14:43: Glucometer 230H 07/29/18 20:12: Glucometer 238H 07/30/18 05:12: White Blood Count 16.5H, Red Blood Count 2.98L, Hemoglobin 8.6L, Hematocrit 27L, Mean Corpuscular Volume 89, Mean Corpuscular Hemoglobin 29, Mean Corpuscular Hemoglobin Concent 32, Red Cell Distribution Width 14.9H, Platelet Count 228, Mean Platelet Volume 10.9H, Neutrophils (%) (Auto) 87H, Lymphocytes (%) (Auto) 4L, Monocytes (%) (Auto) 6, Eosinophils (%) (Auto) 2, Basophils (%) (Auto) 0, Neutrophils # (Auto) 14.4H, Lymphocytes # (Auto) 0.7L, Monocytes # (Auto) 1.1H, Eosinophils # (Auto) 0.4H, Basophils # (Auto) 0.0 07/30/18 05:35: Glucometer 149H 07/30/18 06:06: Sodium Level 142, Potassium Level 3.7, Chloride Level 113H, Carbon Dioxide Level 18L, Anion Gap 11, Blood Urea Nitrogen 43H, Creatinine 1.52H, Estimat Glomerular Filtration Rate 33, BUN/Creatinine Ratio 28, Glucose Level 155H, Calcium Level 8.2L, Phosphorus Level 4.3, Magnesium Level 1.4L 07/30/18 10:01: Glucometer 333H Microbiology 07/21/18 Blood Culture - Final, Complete No growth 07/23/18 MRSA Screen - Final, Complete MRSA not isolated 07/21/18 Urine Culture - Final, Complete NO GROWTH Assessment/Plan Assessment/Plan Assessment/Plan Unfortunately pt's respiratory status is getting worse and is going to DNR status. I will sign off and can resee pt if her status changes. S/P Lap merced Acute Pancreatitis with Necrotic Emmy-pancreatic fat Acute Renal Failure - improving Dehydration- improving SVT on Cardizem drip Clinical Quality Measures DVT/VTE Risk/Contraindication: Risk Factor Score Per Nursin RFS Level Per Nursing on Admit: 3=High СВЕТЛАНА LOMBARDI DO July 30, 2018 10:31
--- NOTE | 2018-07-30 12:06 | Occupational Ther Daily Note ---
OT Current Status-Daily Note Subjective pt laying supine in bed upon OT/ PT arrival in no apparent distress. pt agreed to TX session. pt appropriate for co-treat from PT/ OT secondary to pt required skilled services provide by each discipline that cannot be completed by a clinical rehabilitation liaison. Mental Status/Objective Patient Orientation: Person Therapy Code Descriptions/Definitions Functional [place] Measure: 0=Not Assessed/NA 4=Minimal Assistance 1=Total Assistance 5=Supervision or Setup 2=Maximal Assistance 6=Modified [place] 3=Moderate Assistance 7=Complete [place] Attachments: Drains, Perez Catheter, IV, Oxygen ADL-Treatment Lower Body Dressing (FIM): 1 Toileting (FIM): 1 Transfers (B, C, W/C) (FIM): 3 pt demo incontinence upon therapy arrival. pt required TA to complete hygiene. OT education on proper hand placement when performing rolling from L<>R with MAX A for positioning while PT assist with proper positioning. Other Treatment pt required MOD A to perform supine to sit and MOD A for stand pivot transfer to right side to chair. pt required MAX VC for hand placement with tactile cueing. post TX session pt sitting in recliner chair with legs elevated. call light within reach. all needs met. Education OT Patient Education: Exercise program, Progress toward Goal/Update tx plan, Purpose of tx/functional activities, Safety issues, Transfer techniques Teaching Recipient: Patient Teaching Methods: Demonstration, Discussion Response to Teaching: Reinforcement Needed OT Short Term Goals Short Term Goals Eating(FIM): 5 Grooming(FIM): 4 Bathing(FIM): 4 (UB only) Transfers (B,C,W/C) (FIM): 4 Toilet/Commode Transfer(FIM): 4 1=Demonstrate adherence to instructed precautions during ADL tasks. 2=Patient will verbalize/demonstrate understanding of assistive devices/modifications for ADL. 3=Patient will improve strength/tolerance for activity to enable patient to perform ADL's. OT Alf Goals Alf Goals Grooming(FIM): 5 Bathing(FIM): 5 (UB only) Bathing Location: L Arm, R Arm, Chest, Abdomen Transfers (B,C,W/C) (FIM): 5 Toilet/Commode Transfer(FIM): 5 1=Demonstrate adherence to instructed precautions during ADL tasks. 2=Patient will verbalize/demonstrate understanding of assistive devices/modifications for ADL. 3=Patient will improve strength/tolerance for activity to enable patient to perform ADL's. OT Education/Plan Problem List/Assessment pt presents with functional limitations affecting area of ADL/ functional transfers. pt would benefit from continued OT services to increase independence with ADLS. functional transfers. recommended d/c to SNF Discharge Recommendations Plan/Recommendations: Continue POC Therapy D/C Recommendations: 24 hr Supervision, Prison (TCU/NH) Treatment Plan/Plan of Care Treatment,Training & Education: Yes Patient would benefit from OT for education, treatment and training to promote independence in ADL's, mobility, safety and/or upper extremity function for A DL's. Plan of Care: ADL Retraining, Caregiver Training, Concurrent Therapy, Functional Mobility, Group Exercise/Act as Ind, UE Funct Exercise/Act Treatment Duration: Aug 18, 2018 Frequency: 5 times per week Estimated Hrs Per Day: .25 hour per day Agreement: Yes Rehab Potential: Guarded Time/GCodes Start Time: 11:24 Stop Time: 11:48 Billed Treatment Time FA 12 minutes, 1 unit ADL 12 minutes, 1 unit AUDREY LOGAN OT July 30, 2018 12:06
--- NOTE | 2018-07-30 12:42 | Physical Therapy Daily Note ---
PT Daily Note-Current Subjective Patient in bed pre tx, agrees to PT, has no complaints of pain at rest. Will be co-treating with OT due to poor patient mobility, strength, and balance. Patient has had a large BM, is it black and tarry, nurse notified and she says she is aware of it. Patient seems to have significant difficulty breathing just laying in bed and is wheezy, but her O2 levels are well above 90%. Appearance Patient in recliner post tx with nurse call, phone, tray, all needs met. Mental Status Patient Orientation: Person, Confused, Place Attachments: Oxygen, Perez Catheter, IV Transfers Therapy Code Descriptions/Definitions Functional [place] Measure: 0=Not Assessed/NA 4=Minimal Assistance 1=Total Assistance 5=Supervision or Setup 2=Maximal Assistance 6=Modified [place] 3=Moderate Assistance 7=Complete [place] Therapy Quality Codes: 6 Independent with activity with or without an assistive device 5 Patient requires set up or clean up by helper. Patient completes activity by themselves 4 Supervision or touching assist (CGA). [place] provide cues , steadying assist 3 The helper provides less than half the effort to complete the activity 2 The helper provides more than half the effort to complete the activity 1 Dependent. The helper does all the effort to complete an activity 7 Patient refused to complete or attempt activity 9 The patient did not perform the activity before the current illness or injury 88 Not attempted due to Medical conditions or safety concerns Transfers (B, C, W/C) (FIM): 3 Scootin Rollin Supine to/from Sit: 3 Sit to/from Stand: 3 Bed to/from Chair: 3 Patient is mod assist for bed mobility and transfers. She has to roll several times to each side for cleaning of BM and to get new sheets under her. She is able to assist with her arms but has trouble assisting with legs and needs significant assist from therapist. Patient performs supine to sit with mod assist and stand pivot transfer to recliner with mod assist. Treatments bed mobility, transfers, rolling Assessment Current Status: Poor Progress Decline in mobility. Patient seems to have very labored breathing but her O2 stayed well above 90% during the whole treatment. PT worked on rolling, transfers, bed mobility, OT worked on cleaning BM, rolling, correct UE positioning. Patient very fatigued after treatment with continued labored breathing. PT Short Term Goals Short Term Goals Time Frame: August 04, 2018 Transfers (B,C,W/C) (FIM): 4 Gait (FIM): 1 Gait Distance Comment: 10' Gait Level of Assist: 4 Gait Assistive Device: FWW PT Plan Problem List Problem List: Activity Tolerance, Functional Strength, Safety, Balance, Gait, Transfer, Bed Mobility, ROM Treatment/Plan Treatment Plan: Continue Plan of Care Treatment Plan: Bed Mobility, Concurrent Therapy, Education, Functional Activity Sergey, Functional Strength, Gait, Safety, Therapeutic Exercise, Transfers Treatment Duration: August 04, 2018 Frequency: 6 times per week Estimated Hrs Per Day: .25 hour per day (15-30') Patient and/or Family Agrees t: Yes Safety Risks/Education Patient Education: Transfer Techniques, Correct Positioning, Safety Issues Teaching Recipient: Patient Teaching Methods: Demonstration, Discussion Response to Teaching: Reinforcement Needed Time/GCodes Time In: 1124 Time Out: 1148 Total Billed Treatment Time: 24 Total Billed Treatment 1 visit FA 24' PT and OT co-treated for the whole 24'. RONAL POTTS PT July 30, 2018 12:41
[2018-07-30] MEDS: VANCOMYCIN INJECTION 1,000 MG in NS (IVPB) 250 ML IV SCH (12:57)
--- NOTE | 2018-07-30 13:36 | NUR ---
PALLIATIVE CARE RN in to see patient. She is sitting up in chair head too far back so adjusted. Oxygen is on w CO2 monitor w saturations in the mid to upper 90's. Respiratory rate is a bit fast getting up to near 36. Noted on CT moderate pleural effusion and Lasix started BID. Kidney function improved slightly as did her WBCs. Attempted to talk with Adeline about GOALS of CARE and whether comfort in life outweighed length of life. She was unable to understand this question...rephrased a couple different ways. We talked of her hospital course and she did not know she had a Lap Cholecystectomy. I had seen one of her friends in the hospital and she did not recall her visiting. I do not believe the patient has capacity t understand her situation at this time even though she knows she is in the hospital and the name On ear inspection, noted them to be less plump than yesterday...indicating to me that she is likely to in the next couple. Called patients family and asked them to make an effort to visit her as it did not appear that she was improving. They will make on effort but do not have a vehicle.
[2018-07-30] MEDS ORDERED: SODIUM BICARB 8.4% 50 MEQ/50 ML VIAL IV NR (14:00)
[2018-07-31 00:19] VITALS: BP 137/64
[2018-07-31] MEDS: RT-ALBUTEROL SULF 2.5 MG/3 ML PRE-MIX VIAL INH SCH ×2 (02:35→07:53)
[2018-07-31 04:11] LABS: BASOPHILS % (AUTO) 0 % (0-10); EOSINOPHILS # (AUTO) 0.3 10^3/uL (0.0-0.3); EOSINOPHILS % (AUTO) 3 % (0-10); HEMATOCRIT 25 % (35-52); HEMOGLOBIN 8.2 G/DL (11.5-16.0); LYMPHOCYTES # (AUTO) 0.8 X 10^3 (1.0-4.0); LYMPHOCYTES % (AUTO) 6 % (12-44); MEAN CORPUSCULAR HEMOGLOBIN 29 PG (25-34); MEAN CORPUSCULAR HGB CONC 33 G/DL (32-36); MEAN CORPUSCULAR VOLUME 88 FL (80-99); MEAN PLATELET VOLUME 11.4 FL (7.4-10.4); MONOCYTES # (AUTO) 0.9 X 10^3 (0.0-1.0); MONOCYTES % (AUTO) 7 % (0-12); NEUTROPHILS # (AUTO) 11.2 X 10^3 (1.8-7.8); NEUTROPHILS % (AUTO) 85 % (42-75); PLATELET COUNT 218 10^3/uL (130-400); RED CELL DISTRIBUTION WIDTH 14.4 % (10.0-14.5); WHITE BLOOD COUNT 13.3 10^3/uL (4.3-11.0)
[2018-07-31 04:24] LABS: CREATININE SERUM 1.77 MG/DL (0.60-1.30); MAGNESIUM 1.4 MG/DL (1.8-2.4); POTASSIUM 3.1 MMOL/L (3.6-5.0)
[2018-07-31 04:41] VITALS: BP 120/53
[2018-07-31] MEDS: inSUlin ASPART (NovoLOG) 1 UNIT/0.01 ML (CHARGE PER UNIT) SC SCH ×2 (05:18→10:55)
[2018-07-31] MEDS: FUROSEMIDE 40 MG/4 ML INJ (LASIX) IVP SCH (05:34)
[2018-07-31] MEDS: hydrALAZINE (APRESOLINE) 25 MG TAB PO SCH (05:34)
[2018-07-31] MEDS ORDERED: MAGNESIUM 1 GM/100 ML IVPB 100 ML IV SCH (06:30)
--- NOTE | 2018-07-31 06:32 | Pulmonary Progress Note ---
Sepsis Event Evaluation Height, Weight, BMI Height: 5'0.00" Weight: 161lbs. 0.6oz. 73.497375oi; 28.7 BMI Method:Stated Focused Exam Lactate Level 07/29/18 11:25: Lactic Acid Level 1.44 Exam Exam Vital Signs Date Time Temp Pulse Resp B/P (MAP) Pulse Ox O2 Delivery O2 Flow Rate FiO2 07/31/18 04:41 96.8 67 18 120/53 (75) 98 07/31/18 02:35 97 Nasal Cannula 2.00 07/31/18 01:00 61 07/31/18 00:19 98.1 65 22 137/64 (88) 99 07/30/18 22:56 68 137/64 (88) 07/30/18 22:06 66 107/62 (77) 07/30/18 21:10 97 Nasal Cannula 2.00 07/30/18 20:00 Nasal Cannula 2.00 07/30/18 19:17 98.0 79 23 139/67 (91) 97 Nasal Cannula 2.00 07/30/18 19:00 81 07/30/18 19:00 97 Nasal Cannula 2.00 07/30/18 18:34 99 Nasal Cannula 2.00 07/30/18 15:48 98.4 82 30 127/60 (82) 97 Nasal Cannula 2.00 07/30/18 15:11 99 Nasal Cannula 2.00 07/30/18 12:58 98.7 76 38 137/65 (89) 97 Nasal Cannula 2.00 07/30/18 12:53 65 07/30/18 08:49 98 Nasal Cannula 2.00 07/30/18 08:11 98.0 103 28 135/63 (87) 97 Nasal Cannula 2.00 07/30/18 08:00 Nasal Cannula 2.00 07/30/18 07:00 82 I & O 07/31/18 07:00 Intake Total 900 ml Output Total 3275 ml Balance -2375 ml Height & Weight Height: 5'0.00" Weight: 161lbs. 0.6oz. [id number]; 28.7 BMI Method:Stated General Appearance: WD/WN, Chronically ill, Mild Distress, Other (frail, declined) HEENT: Other (edentulous) Respiratory: Chest Non Tender, Accessory Muscle Use, Decreased Breath Sounds Cardiovascular: Regular Rate, Rhythm, No Murmur Capillary Refill: Less Than 3 Seconds Peripheral Pulses: 0 Carotid (R), 0 Carotid (L), 0 Femoral (R), 0 Femoral (L), 0 Dorsalis Pedis (R); 2+ Dorsalis Pedis (R); 0 Left Dors-Pedis (L); 2+ Left Dors-Pedis (L); 0 Radial Pulses (R); 2+ Radial Pulses (R); 0 Radial Pulses (L); 2+ Radial Pulses (L) Gastrointestinal: soft, distended (mild), other (incisions are c/d/i. Drain output is motsly serous with some pink tinge) Extremity: Normal Capillary Refill, Normal Inspection, No Pedal Edema 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 Skin: Normal Color, Warm/Dry Results Lab Laboratory Tests 07/30/18 05:12 07/30/18 06:06 07/31/18 03:11 Assessment/Plan Assessment/Plan Pancreatitis with Necrotic Emmy-pancreatic fat - improved amylase/lipase now normal Worsening leukocytosis and metabolic acidosis -CT scan reviewed SOB with bilateral pleural effusions -Sp02 is 99% -Monitor -Lasix Afib -Cardiology following S/p lap Maida Leukocytosis- No fever currently - Rachellesyburt vanco -Continue to monitor Metabolic lactic acidosis -IVF -s/p bicarb Cholelithiasis s/p surgery -Surgery following Acute renal failure Intravascular dehydration SVT -Cardiology following HTN -Add hydralazine PRN Hypokalemia, -Replace SINCERE HARRY DO July 31, 2018 06:32
[2018-07-31] MEDS: POTASSIUM CL 10MEQ/50ML IVPB 50 ML IV SCH ×3 (06:57→09:36)
[2018-07-31] MEDS ORDERED: KCL 20 MEQ TAB (K-DUR) PO SCH (07:00)
--- NOTE | 2018-07-31 07:19 | Diagnostic Imaging Report ---
Indication: Shortness of air. Comparison: 07/29/2018 Findings: Single frontal radiographic view of chest was obtained and demonstrates persistent moderate pulmonary vascular congestion. Cardiac silhouette is stable, although heavily obscured. Lungs continue to show large bilateral pleural effusions with associated bibasilar atelectasis. No pneumothorax is seen on either side. Left-sided dual-lead pacemaker and sternotomy wires are noted. Bony structures show no gross acute abnormalities. Impression: 1. Stable exam of the chest showing pulmonary vascular congestion with large bilateral pleural effusions and associated bibasilar atelectasis. Dictated by: Dictated on workstation # [id number]
[2018-07-31 08:00] VITALS: BP 144/64
[2018-07-31] MEDS: PIPERACILLIN/TAZO 4.5 GM/NS 100 ML IV SCH ×2 (08:10)
[2018-07-31] MEDS: MAGNESIUM OXIDE (MAG-OX)400 MG TAB PO SCH (08:11)
--- NOTE | 2018-07-31 08:26 | Cardiology Progress Note ---
Subjective Date Seen by Provider: July 31, 2018 Time Seen by Provider: 08:24 Subjective/Events-last exam Patient is sitting up in bed, complaining of abdominal pain. Denies any chest pain. Focused Exam Lactate Level 07/29/18 11:25: Lactic Acid Level 1.44 Objective-Cardiology Exam Last Set of Vital Signs Vital Signs 07/25/18 07/31/18 09:48 08:00 Temp 97.1 Pulse 71 Resp 20 B/P (MAP) 144/64 (90) Pulse Ox 98 O2 Delivery Nasal Cannula O2 Flow Rate 2.00 FiO2 28 Capillary Refill : Less Than 3 SecondsLess Than 3 Seconds I&O Intake and Output 07/31/18 00:00 Intake Total 1620 ml Output Total 2825 ml Balance -1205 ml Intake Oral 500 ml IV Total 1120 ml Output Urine Total 2325 ml Drainage Total 500 ml # Bowel Movements 2 General: Alert, Oriented X3, Mild Distress HEENT: Atraumatic, PERRLA Neck: Supple, No JVD, No Thyromegaly Lungs: Clear to Auscultation, Other (Wheezing) Heart: Regular Rate, Normal S1, Normal S2 Abdomen: Normal Bowel Sounds, No Hepatosplenomegaly, Other (decreased BS, abdominal pain) Extremities: No Clubbing, No Cyanosis, No Edema, No Tenderness/Swelling Skin: No Rashes, No Breakdown Neuro: Normal Speech, Cranial Nerves 3-12 NL Psych/Mental Status: Mood NL Results Lab Laboratory Tests 07/31/18 03:11 A/P-Cardiology Admission Diagnosis Acute pancreatitis Acute renal failure CAD HTN Assessment/Plan Gallstone pancreatitis. 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 Jean Acute respiratory failure, CT chest revealed bilat pleural effusion, started on Lasix IV, I will evaluate echocardiogram Paroxysmal supraventricular tachycardia, had multiple episodes, probably atrial tachycardia responsive to IV beta blockers, heart rate is better at this time. Maintained on Cardizem CD 180 mg daily and tolerating it well. Continue to monitor Acute renal failure on chronic kidney disease stage IV, receiving IV fluid, avoid the use of DAVID inhibitor and/or ARB at this time. Renal function continues to slowly improve History of CVA, had an acute CVA in March 2018 with left MCA distribution thrombus, received TPA on March 08, 2018 noted to have small intracranial bleed on March 10, 2018, better at this time. No residual deficit was reported. currently aspirin and Plavix are on hold. Continue to monitor Coronary artery disease, history of non-ST elevation myocardial infarction with elevated troponin of 1.5, conservative management in [facility], history of CABG, review of her record showed history of cardiac catheterization using multiple stents, the mid RCA had a Cypher 3.528 and 2.523, distal RCA reported Cypher 2.528, the RCA has another report of a stent done in May 2010 with Xience 3.5 x 38, t he LAD there are report of a stent done in 2001 using MultiLink 2.7525 and in 2007 Xience 3.5 time 18. Stress test April 2018 showed breast attenuation with fixed defect involving the basal to mid anterolateral and inferolateral wall, stress score 14, SDS 4, ejection fraction 44 percent, currently asymptomatic. Continue with conservative management at this time and will consider catheterization if she become symptomatic Congestive heart failure, chronic compensated left ventricular systolic dysfunction, ischemic in nature, ejection fraction 35-40 percent. Continue on beta sirisha. DAVID-I or ARB contraindicated secondary to renal failure. Dual-chamber pacemaker implanted on March 01, 2013, send James done by Dr. Barrientos using ACCENT DR RF 2210, last checkup was done on April 10, 2018 showing longevity 7.5 years, atrial impedance is 400, ventricular impedance 460, P-wave 2.4 mV, R wave more than 12 mV, threshold for atrium 0.62 at 0.6 ms, ventricle 0.75 at 0.4 ms, atrial pacing 63 percent, ventricular pacing less than 1 percent. Continue on the same setting and monitor History of syncope with questionable hypotensive episode and vasovagal episode. Labile hypertension with episode of severe hypertension, blood pressure better controlled. Continue to monitor. Hyperlipidemia-Lipitor and Zetia discontinued on this admission secondary to pancreatitis. Hypothyroidism, managed by primary care physician Clinical Quality Measures DVT/VTE Risk/Contraindication: Risk Factor Score Per Nursin RFS Level Per Nursing on Admit: 3=High Supervisory-Addendum Brief Supervisory Addendum Participated in pt care: history, MDM, physical Personally performed: exam, history, MDM Care discussed with: TRISTIN Notes: Patient was seen and evaluated with Tamera, examined the patient and i nterviewed her. Agree with the current scribed note. Patient is still having some shortness of breath, generalized fatigue, having abdominal pain. We'll continue with diuretics for now, continue to monitor. Echocardiogram results were reviewed. Maintained on oxygen. TAMERA LE July 31, 2018 8:26 am JAC MABRY MD July 31, 2018 12:53 pm
[2018-07-31] MEDS ORDERED: FUROSEMIDE 40 MG/4 ML INJ (LASIX) IVP SCH (09:00)
[2018-07-31] MEDS: meTOprolol TARTRATE 25 MG (LOPRESSOR) TABLET PO SCH (09:32)
[2018-07-31] MEDS: DILTIAZEM 180 MG (CARDIZEM CD) CAP PO SCH (09:32)
--- NOTE | 2018-07-31 10:00 | NUR ---
PALLIATIVE CARE RN in to see patient. She is sitting in the chair and appears to have much less labored respirations over yesterday. She is still not with capacity to make decision for herself. Doesn't know she had surgery, just knows she hurts all over. Patient's son and his significant are planning to visit today. Hopefully will have a Goals of Care discussion with a POC in place before the weekend.
--- NOTE | 2018-07-31 10:03 | Physical Therapy Daily Note ---
PT Daily Note-Current Subjective Agrees to PT and to get up to the chair. Mental Status Attachments: Oxygen (in situ during and post treatment), Drains, Perez Catheter, IV Transfers Therapy Code Descriptions/Definitions Functional [place] Measure: 0=Not Assessed/NA 4=Minimal Assistance 1=Total Assistance 5=Supervision or Setup 2=Maximal Assistance 6=Modified [place] 3=Moderate Assistance 7=Complete [place] Therapy Quality Codes: 6 Independent with activity with or without an assistive device 5 Patient requires set up or clean up by helper. Patient completes activity by themselves 4 Supervision or touching assist (CGA). [place] provide cues , steadying assist 3 The helper provides less than half the effort to complete the activity 2 The helper provides more than half the effort to complete the activity 1 Dependent. The helper does all the effort to complete an activity 7 Patient refused to complete or attempt activity 9 The patient did not perform the activity before the current illness or injury 88 Not attempted due to Medical conditions or safety concerns Transfers (B, C, W/C) (FIM): 2 Rollin Supine to/from Sit: 2 Sit to/from Stand: 4 Bed to/from Chair: 3 Pt incont of bowel in bed. Worked on rolling side to side with use of UE and LE for rolling as well as engaging core musculature for rolling. Cleaned pt. Pt then transferred to sit EOB with max assist and heavy skilled cues for sequencing and task segmentation. Pt sat EOB with CGA for safety. Sit to stand with min assist and pt was able to take 3-4 steps to transfer to the chair. Pt required max assist to scoot back in the chair. In chair with oxygen in place and needs met and breakfast before her. Co treat with OT due to the complexity of cues and skill of 2 clinicians to complete. OT addressed UE placement and use as PT addressed gross transfer and LE use. Assessment Current Status: Good Progress Pt followed cues well and was able to initiate a sit to stand better today. Tolerated treatment well. PT Short Term Goals Short Term Goals Time Frame: August 04, 2018 Transfers (B,C,W/C) (FIM): 4 Gait (FIM): 1 Gait Distance Comment: 10' Gait Level of Assist: 4 Gait Assistive Device: FWW PT Plan Problem List Problem List: Activity Tolerance, Functional Strength, Safety, Balance, Gait, Transfer, Bed Mobility Treatment/Plan Treatment Plan: Continue Plan of Care Treatment Plan: Bed Mobility, Concurrent Therapy, Education, Functional Activity Sergey, Functional Strength, Gait, Safety, Therapeutic Exercise, Transfers Treatment Duration: August 04, 2018 Frequency: 6 times per week Estimated Hrs Per Day: .25 hour per day (15-30') Patient and/or Family Agrees t: Yes Safety Risks/Education Patient Education: Transfer Techniques, Safety Issues Teaching Recipient: Patient Teaching Methods: Demonstration, Discussion Response to Teaching: Reinforcement Needed Time/GCodes Time In: 810 Time Out: 850 Total Billed Treatment Time: 40 Total Billed Treatment visit FA 40 JOHN ALBARADO PT July 31, 2018 10:03
--- NOTE | 2018-07-31 10:22 | Occupational Ther Daily Note ---
OT Current Status-Daily Note Subjective pt laying in in bed upon OT/ PT arrival in no apparent distress. pt agreed to TX session. Co treat with PT due to the complexity of cues and skill of 2 clinicians to complete. OT addressed UE placement and use as PT addressed gross transfer and LE use. Mental Status/Objective Patient Orientation: Person Therapy Code Descriptions/Definitions Functional [place] Measure: 0=Not Assessed/NA 4=Minimal Assistance 1=Total Assistance 5=Supervision or Setup 2=Maximal Assistance 6=Modified [place] 3=Moderate Assistance 7=Complete [place] Attachments: Drains, Perez Catheter, IV, Oxygen ADL-Treatment Eating (FIM): 5 (pr required set up of items and MIN VC to iniate task) Grooming (FIM): 5 (wash hands, and wash face) Transfers (B, C, W/C) (FIM): 3 Other Treatment Upon OT/ PT arrival pt incontinent of bowel. pt education on rolling R<>L and proper hand/ leg placement. pt cleaned and grown changed. pt did not participate or initiate participating in hygiene. pt perform supine to sit EOB with max A and MAX skilled cues for sequencing / proper techniques. while sitting EOB pt required CGA for safety/ balance. pt education on Sit to stand with min assist transfer to the chair with MOD A. once sitting in chair pt required MAX A to scoot back into chair post education. pt education on energy conservation techniques along with pursed lip breathing education. pt demo with MAX cuing. pt post TX session pt eating breakfast. O@ NC placed. all needs met. call light within reach. Education OT Patient Education: Energy conservation, Modified ADL techniques, Progress toward Goal/Update tx plan, Purpose of tx/functional activities, Safety issues, Transfer techniques Teaching Recipient: Patient Teaching Methods: Demonstration, Discussion Response to Teaching: Verbalize Understanding, Return Demonstration OT Short Term Goals Short Term Goals Eating(FIM): 5 Grooming(FIM): 4 Bathing(FIM): 4 (UB only) Transfers (B,C,W/C) (FIM): 4 Toilet/Commode Transfer(FIM): 4 1=Demonstrate adherence to instructed precautions during ADL tasks. 2=Patient will verbalize/demonstrate understanding of assistive devices/modifications for ADL. 3=Patient will improve strength/tolerance for activity to enable patient to perform ADL's. OT Explosive Ordnance Specialist Goals Explosive Ordnance Specialist Goals Grooming(FIM): 5 Bathing(FIM): 5 (UB only) Bathing Location: L Arm, R Arm, Chest, Abdomen Transfers (B,C,W/C) (FIM): 5 Toilet/Commode Transfer(FIM): 5 1=Demonstrate adherence to instructed precautions during ADL tasks. 2=Patient will verbalize/demonstrate understanding of assistive devices/modifications for ADL. 3=Patient will improve strength/tolerance for activity to enable patient to perform ADL's. OT Education/Plan Problem List/Assessment pt presents with functional limitations affecting area of ADL/ functional transfers. pt would benefit from continued OT services to increase independence with ADLS. functional transfers. recommended d/c to SNF Discharge Recommendations Plan/Recommendations: Continue POC Therapy D/C Recommendations: Detention (TCU/NH) Treatment Plan/Plan of Care Treatment,Training & Education: Yes Patient would benefit from OT for education, treatment and training to promote independence in ADL's, mobility, safety and/or upper extremity function for ADL's. Plan of Care: ADL Retraining, Caregiver Training, Concurrent Therapy, Functional Mobility, Group Exercise/Act as Ind, UE Funct Exercise/Act Treatment Duration: Aug 18, 2018 Frequency: 5 times per week Estimated Hrs Per Day: .25 hour per day Agreement: Yes Rehab Potential: Guarded Time/GCodes Start Time: 09:10 Stop Time: 10:50 Billed Treatment Time ADL 30 minutes, 2 units FA 10 minutes, 1 unit AUDREY LOGAN OT July 31, 2018 10:22
--- NOTE | 2018-07-31 11:04 | Progress Note-Hospitalist ---
Subjective HPI/CC On Admission Date Seen by Provider: July 31, 2018 Time Seen by Provider: 10:00 Focused Exam Lactate Level 07/29/18 11:25: Lactic Acid Level 1.44 Objective Exam Vital Signs Vital Signs Date Time Temp Pulse Resp B/P (MAP) Pulse Ox O2 Delivery O2 Flow Rate FiO2 07/31/18 08:00 97.1 71 20 144/64 (90) 98 07/31/18 08:00 Nasal Cannula 2.00 07/25/18 09:48 28 Capillary Refill : Less Than 3 SecondsLess Than 3 Seconds General Appearance: WD/WN, Chronically ill, Mild Distress, Other (frail, declined) HEENT: Other (edentulous) Respiratory: Chest Non Tender, Accessory Muscle Use, Decreased Breath Sounds Cardiovascular: Regular Rate, Rhythm, No Murmur Gastrointestinal: Guarding, Tenderness Rectal: Deferred Back: No CVA Tenderness Extremity: Normal Capillary Refill, Normal Inspection, No Pedal Edema 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 Skin: Normal Color, Warm/Dry Results/Procedures Lab Laboratory Tests 07/31/18 03:11 Patient resulted labs reviewed. Assessment/Plan Assessment and Plan Assess & Plan/Chief Complaint Assessment: Worsened clinical status Pancreatitis worsened s/p choly 07/24/18 Severe debility CVA hx with major residual requiring NH placement permanently Renal failure Plan: Monitor labs Poor prognosis Appreciate Steve Jean and Sofía DNR Diagnosis/Problems Diagnosis/Problems (1) Pancreatitis Status: Acute Qualifiers: Chronicity: acute Pancreatitis type: biliary Acute pancreatitis complication: unspecified Qualified Codes: K85.10 - Biliary acute pancreatitis without necrosis or infection (2) Cholelithiasis Status: Resolved Assessment & Plan: s/p choly 07/24/18 Qualifiers: Cholelithiasis location: gallbladder Cholecystitis presence: with cholecystitis Cholecystitis acuity: acute Biliary obstruction: without biliary obstruction Qualified Codes: K80.00 - Calculus of gallbladder with acute cholecystitis without obstruction Resolution Date/Time: 07/27/18 @ 13:17 (3) Lactic acidosis Status: Resolved Resolution Date/Time: 07/27/18 @ 13:17 (4) Confusion Status: Chronic (5) Expressive aphasia Status: Chronic (6) Cerebrovascular accident (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 Status: Chronic (7) CAD (coronary artery disease) Status: Chronic Qualifiers: Coronary Disease-Associated Artery/Lesion type: [place] artery [place] vs. transplanted heart: [place] heart Associated angina: without angina Qualified Codes: I25.10 - Atherosclerotic heart disease of [place] coronary artery without angina pectoris (8) Acute kidney failure Status: Resolved Resolution Date/Time: 07/27/18 @ 13:17 (9) SVT (supraventricular tachycardia) Status: Resolved Resolution Date/Time: 07/27/18 @ 13:17 (10) Elevated LFTs Status: Acute (11) Diabetes Status: Chronic Qualifiers: Diabetes mellitus type: type 2 Diabetes mellitus group home insulin use: without oysterman use Diabetes mellitus complication status: with kidney complications Diabetes mellitus complication detail: with chronic kidney disease Chronic kidney disease stage: stage 3 (moderate) Qualified Codes: E11.22 - Type 2 diabetes mellitus with diabetic chronic kidney disease; N18.3 - Chronic kidney disease, stage 3 (moderate) (12) Hypernatremia Status: Acute Clinical Quality Measures DVT/VTE Risk/Contraindication: Risk Factor Score Per Nursin RFS Level Per Nursing on Admit: 3=High ERVIN TRAN DO July 31, 2018 11:04
--- NOTE | 2018-07-31 11:22 | Discharge Summary-Hospitalist ---
Diagnosis/Chief Complaint Date of Admission July 21, 2018 at 18:31 Date of Discharge Discharge Date: July 31, 2018 Discharge Diagnosis (1) Pancreatitis Status: Acute (2) Cholelithiasis Status: Resolved Assessment & Plan: s/p choly 07/24/18 (3) Lactic acidosis Status: Resolved (4) Confusion Status: Chronic (5) Expressive aphasia Status: Chronic (6) Cerebrovascular accident (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 Status: Chronic (7) CAD (coronary artery disease) Status: Chronic (8) Acute kidney failure Status: Resolved (9) SVT (supraventricular tachycardia) Status: Resolved (10) Elevated LFTs Status: Acute (11) Diabetes Status: Chronic (12) Hypernatremia Status: Acute Discharge Summary Discharge Physical Exam Allergies: Coded Allergies: NKANo Known Allergies (Unverified Allergy, Mild, 07/31/18) Vitals & I&Os Vital Signs Date Time Temp Pulse Resp B/P (MAP) Pulse Ox O2 Delivery O2 Flow Rate FiO2 07/31/18 08:00 97.1 71 20 144/64 (90) 98 07/31/18 08:00 Nasal Cannula 2.00 07/25/18 09:48 28 General Appearance: No Apparent Distress, WD/WN, Chronically ill, Thin Respiratory: Chest Non Tender, Lungs Clear, Normal Breath Sounds, No Accessory Muscle Use, No Respiratory Distress Cardiovascular: Regular Rate, Rhythm, No Edema, No Gallop, No JVD, No Murmur, Normal Peripheral Pulses 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, Disoriented Hospital Course Was the Problem List Reviewed?: Yes Hostile Course: Pt had a lengthy hospital course for 11 days for acute pancreatitis and cholelithiasis. She did undergo an uncomplicated cholecystectomy by Dr. Jean. Pt was maintained NPO status but had difficulty with sepsis. Pt was maintained on broad antibiotic spectrum coverage and pt remained NPO for several days, maintained on peripheral nutrition. Pt was deemed poor prognosis maintained at DNR per family request and overall she did stabilize enough to change to swing bed status for peripheral nutrition and antibiotics and all consultants were maintained to closely monitor the pt but overall prognosis very poor. PICC line will be placed to maintain all IV antibiotics. Labs (last 24 hrs) Laboratory Tests 07/31/18 03:11: White Blood Count 13.3H, Red Blood Count 2.79L, Hemoglobin 8.2L, Hematocrit 25L, Mean Corpuscular Volume 88, Mean Corpuscular Hemoglobin 29, Mean Corpuscular Hemoglobin Concent 33, Red Cell Distribution Width 14.4, Platelet Count 218, Mean Platelet Volume 11.4H, Neutrophils (%) (Auto) 85H, Lymphocytes (%) (Auto) 6L, Monocytes (%) (Auto) 7, Eosinophils (%) (Auto) 3, Basophils (%) (Auto) 0, Neutrophils # (Auto) 11.2H, Lymphocytes # (Auto) 0.8L, Monocytes # (Auto) 0.9, Eosinophils # (Auto) 0.3, Basophils # (Auto) 0.0, Sodium Level 139, Potassium Level 3.1L, Chloride Level 107, Carbon Dioxide Level 23, Anion Gap 9, Blood Urea Nitrogen 50H, Creatinine 1.77H, Estimat Glomerular Filtration Rate 28, BUN/Creatinine Ratio 28, Glucose Level 138H, Calcium Level 8.0L, Phosphorus Level 4.6, Magnesium Level 1.4L 07/31/18 04:56: Glucometer 134H 07/31/18 10:40: Glucometer 179H Microbiology 07/21/18 Blood Culture - Final, Complete No growth 07/23/18 MRSA Screen - Final, Complete MRSA not isolated 07/21/18 Urine Culture - Final, Complete NO GROWTH Patient resulted labs reviewed. Pending Labs Discussion & Recommendations Discharge Planning: <30 minutes discharge planning Discharge Home Medications: Active Scripts Active Reported Metformin HCl 500 Mg Tablet 500 Mg PO DAILY Vitamin D3 (Cholecalciferol (Vitamin D3)) 5,000 Unit Capsule 5,000 Unit PO DAILY Tramadol HCl 50 Mg Tablet 50 Mg PO Q6H PRN Metoprolol Succinate 100 Mg Tab.er.24h 100 Mg PO DAILY Lisinopril 20 Mg Tablet 20 Mg PO DAILY Levothyroxine Sodium 25 Mcg Tablet 25 Mcg PO DAILY Hydrochlorothiazide 25 Mg Tablet 25 Mg PO DAILY Acid Latcher (FAMOTIDINE) (Famotidine) 20 Mg Tablet 20 Mg PO DAILY Ezetimibe 10 Mg Tablet 10 Mg PO HS Plavix (Clopidogrel Bisulfate) 75 Mg Tablet 75 Mg PO DAILY Citalopram HBr (Citalopram Hydrobromide) 20 Mg Tablet 20 Mg PO DAILY Bisacodyl 5 Mg Tablet. 5 Mg PO DAILY PRN Lipitor (Atorvastatin Calcium) 40 Mg Tablet 40 Mg PO HS Aspirin EC (Aspirin) 81 Mg Tablet.dr 81 Mg PO DAILY Instructions to patient/family Please see electronic discharge instructions given to patient. Clinical Quality Measures DVT/VTE Risk/Contraindication: Risk Factor Score Per Nursin RFS Level Per Nursing on Admit: 3=High Problem Qualifiers (1) Pancreatitis: Chronicity: acute Pancreatitis type: biliary Acute pancreatitis complication: unspecified Qualified Codes: K85.10 - Biliary acute pancreatitis without necrosis or infection (2) Cholelithiasis: Cholelithiasis location: gallbladder Cholecystitis presence: with cholecystitis Cholecystitis acuity: acute Biliary obstruction: without biliary obstruction Qualified Codes: K80.00 - Calculus of gallbladder with acute cholecystitis without obstruction (3) CAD (coronary artery disease): Coronary Disease-Associated Artery/Lesion type: [place] artery [place] vs. transplanted heart: [place] heart Associated angina: without angina Qualified Codes: I25.10 - Atherosclerotic heart disease of [place] coronary artery without angina pectoris (4) Diabetes: Diabetes mellitus type: type 2 Diabetes mellitus anesthesiologists' assistant insulin use: without anesthesiologists' assistant use Diabetes mellitus complication status: with kidney complications Diabetes mellitus complication detail: with chronic kidney disease Chronic kidney disease stage: stage 3 (moderate) Qualified Codes: E11.22 - Type 2 diabetes mellitus with diabetic chronic kidney disease; N18.3 - Chronic kidney disease, stage 3 (moderate) ERVIN TRAN DO July 31, 2018 11:22
[2018-08-04] MEDS ORDERED: DILT180C90 PO (15:57)
[2018-08-04] MEDS ORDERED: METO-333 PO (15:57)
== END 2018-07-31 11:17 | disposition swing bed (61) | DRG 417 ==
LOC: EDUNIT# 15:05 → ER 15:06 → UNDOADMIN 18:31 → 4TH 18:31 → ICU 07-23 05:00 → 4TH 07-26 13:09
PROVIDERS: ADMIT Family Medicine; ATTEND Family Medicine
PROC: BF101ZZ Fluoroscopy of Bile Ducts using Low Osmolar Contrast (ICD-10-PCS; 2018-07-24)
PROC: 0FT44ZZ Resection of Gallbladder, Percutaneous Endoscopic Approach (ICD-10-PCS; principal; 2018-07-24 11:08)
DX: K80.00 Calculus of gallbladder with acute cholecystitis without obstruction (principal); K85.10 Biliary acute pancreatitis without necrosis or infection; K86.89 Other specified diseases of pancreas; A41.9 Sepsis, unspecified organism; J90 Pleural effusion, not elsewhere classified; N17.9 Acute kidney failure, unspecified; Z66 Do not resuscitate; I13.0 Hypertensive heart and chronic kidney disease with heart failure and stage 1 through stage 4 chronic kidney disease, or unspecified chronic kidney disease; I50.22 Chronic systolic (congestive) heart failure; N18.4 Chronic kidney disease, stage 4 (severe); E87.2 Acidosis; I47.1 Supraventricular tachycardia; E87.0 Hyperosmolality and hypernatremia; E86.0 Dehydration; E87.6 Hypokalemia; E83.39 Other disorders of phosphorus metabolism; I69.351 Hemiplegia and hemiparesis following cerebral infarction affecting right dominant side; I69.320 Aphasia following cerebral infarction; I69.893 Ataxia following other cerebrovascular disease; I25.10 Atherosclerotic heart disease of native coronary artery without angina pectoris; E11.42 Type 2 diabetes mellitus with diabetic polyneuropathy; E11.22 Type 2 diabetes mellitus with diabetic chronic kidney disease; E11.65 Type 2 diabetes mellitus with hyperglycemia; E03.9 Hypothyroidism, unspecified; E78.00 Pure hypercholesterolemia, unspecified; K21.9 Gastro-esophageal reflux disease without esophagitis; K59.00 Constipation, unspecified; F32.9 Major depressive disorder, single episode, unspecified; Z95.1 Presence of aortocoronary bypass graft; Z95.0 Presence of cardiac pacemaker
CPT/HCPCS: 36415; 36600; 51702; 53620; 71045; 71046; 71250; 74176; 76705; 80048; 80053; 80202; 81000; 82140; 82150; 82247; 82248; 82805; 82962; 83605; 83690; 83735; 83880; 84100; 84443; 84450; 84460; 85007; 85025; 85027; 85610; 85730; 87040; 87081; 87088; 93005; 93306; 94640; 94760; 96361; 96365; 96375

== ENCOUNTER 2018-07-31 11:33 | Inpatient (IN) | payer MEDICARE, MEDICAID | END 2018-08-04 16:50 | LOC: 4TH 11:33 | DX: K85.90 Acute pancreatitis without necrosis or infection, unspecified (principal); I25.10 Atherosclerotic heart disease of native coronary artery without angina pectoris; E87.0 Hyperosmolality and hypernatremia; E11.9 Type 2 diabetes mellitus without complications; Z98.890 Other specified postprocedural states; Z66 Do not resuscitate ==

== ENCOUNTER 2018-08-07 10:19 | Emergency (ER) | payer MEDICARE, MEDICAID ==
[~2018-08-07] VITALS: Ht 152.4 cm; Wt 70.3 kg
[~2018-08-07 10:19] MED LIST changes: +BISA5TAB8 PO; +CHOL5000 PO; +CLOP75TA69 PO; +DILT180C90 PO; +HYDR25TA4 PO; +LISI-552 PO; +METFROMIN PO; +METO-333 PO; +METO-395 PO
[2018-08-07 10:54] LABS: BASOPHILS # (AUTO) 0.1 10^3/uL (0.0-0.1); BASOPHILS % (AUTO) 0 % (0-10); EOSINOPHILS # (AUTO) 0.1 10^3/uL (0.0-0.3); EOSINOPHILS % (AUTO) 1 % (0-10); HEMATOCRIT 24 % (35-52); HEMOGLOBIN 7.5 G/DL (11.5-16.0); LYMPHOCYTES # (AUTO) 0.9 X 10^3 (1.0-4.0); LYMPHOCYTES % (AUTO) 7 % (12-44); MEAN CORPUSCULAR HEMOGLOBIN 29 PG (25-34); MEAN CORPUSCULAR HGB CONC 31 G/DL (32-36); MEAN CORPUSCULAR VOLUME 93 FL (80-99); MEAN PLATELET VOLUME 10.6 FL (7.4-10.4); MONOCYTES # (AUTO) 0.9 X 10^3 (0.0-1.0); MONOCYTES % (AUTO) 7 % (0-12); NEUTROPHILS # (AUTO) 10.4 X 10^3 (1.8-7.8); NEUTROPHILS % (AUTO) 85 % (42-75); PLATELET COUNT 286 10^3/uL (130-400); RED CELL DISTRIBUTION WIDTH 14.2 % (10.0-14.5); WHITE BLOOD COUNT 12.2 10^3/uL (4.3-11.0)
[2018-08-07 11:13] LABS: CALCIUM 8.5 MG/DL (8.5-10.1); CREATININE SERUM 1.95 MG/DL (0.60-1.30); POTASSIUM 4.7 MMOL/L (3.6-5.0)
--- NOTE | 2018-08-07 12:26 | ED General ---
General Chief Complaint: General Problems/Pain Stated Complaint: HEMOGLOBIN LOW Nursing Triage Note: PATIENT HERE WITH A [employer] STAFF MEMBER WHO STATES THAT THE PATIENT HAD A RECENT GALLBLADDER REMOVAL AND TODAY HAD RESULTS INDICATING A LOW HEMOGLOBIN. DR LOMBARDI APPARENTLY REQUESTED THAT SHE COME TO THE ER FOR EVALUATION. Nursing Sepsis Screen: No Definite Risk Source of Information: Patient Exam Limitations: No Limitations History of Present Illness Date Seen by Provider: August 07, 2018 Time Seen by Provider: 10:25 Initial Comments Patient is brought to emergency room by half-way staff to be evaluated for severe anemia. She was treated at this facility for necrotizing pancreatitis and gallbladder disease. She is status post cholecystectomy and has an abdominal drain in place. The drain has serous see fluid with scant blood. Patient's hemoglobin today was noted to be 6.8. Patient continues to have postoperative pain. No vomiting. Case was discussed with Dr. Lombardi. We will do a basic evaluation and transfuse blood. Allergies and Home Medications Allergies Coded Allergies: NKANo Known Allergies (Unverified Allergy, Mild, 07/31/18) Home Medications Aspirin 81 Mg Tablet.dr, 81 MG PO DAILY, (Reported) Atorvastatin Calcium 40 Mg Tablet, 40 MG PO HS, (Reported) Bisacodyl 5 Mg Tablet.dr, 5 MG PO DAILY PRN for CONSTIPATION-4TH LINE, (Reported) Cholecalciferol (Vitamin D3) 5,000 Unit Capsule, 5,000 UNIT PO DAILY, (Reported) Citalopram Hydrobromide 20 Mg Tablet, 20 MG PO DAILY, (Reported) Clopidogrel Bisulfate 75 Mg Tablet, 75 MG PO DAILY, (Reported) Diltiazem HCl 180 Mg Cap.er.24h, 180 MG PO DAILY Prescribed by: VANNESA HAJI on 08/04/18 1557 Ezetimibe 10 Mg Tablet, 10 MG PO HS, (Reported) Famotidine 20 Mg Tablet, 20 MG PO DAILY, (Reported) Levothyroxine Sodium 25 Mcg Tablet, 25 MCG PO DAILY, (Reported) Metformin HCl 500 Mg Tablet, 500 MG PO DAILY, (Reported) Metoprolol Tartrate 25 Mg Tablet, 25 MG PO BID Prescribed by: VANNESA HAJI on 08/04/181556 Tramadol HCl 50 Mg Tablet, 50 MG PO Q6H PRN for PAIN-MODERATE, (Reported) Patient Home Medication List Home Medication List Reviewed: Yes Review of Systems Review of Systems Constitutional: no symptoms reported EENTM: no symptoms reported Respiratory: no symptoms reported Cardiovascular: no symptoms reported Gastrointestinal: see HPI Genitourinary: no symptoms reported : No Musculoskeletal: no symptoms reported Skin: no symptoms reported Psychiatric/Neurological: No Symptoms Reported Hematologic/Lymphatic: See HPI Immunological/Allergic: denies no symptoms reported Past Kolfrtm-Hhfext-Iyhwpr Hx Past Med/Social Hx: Reviewed Nursing Past Med/Soc Hx Patient Social History Alcohol Use: Denies Use Recreational Drug Use: No Smoking Status: Never a Smoker 2nd Hand Smoke Exposure: No Recent Foreign Travel: No Contact w/Someone Who Travel: No Recent Infectious Disease Expo: No Recent Hopitalizations: Yes Physical Abuse: No Sexual Abuse: No Immunizations Up To Date Date of Pneumonia Vaccine: Dec 16, 2016 Date of Influenza Vaccine: Mar 11, 2018 Seasonal Allergies Seasonal Allergies: No Past Medical History Surgeries: Yes (Knee surgery bilt) Cardiac, CABG, Eye Surgery, Gallbladder, Hysterectomy, Orthopedic, Pacemaker Respiratory: No Currently Using CPAP: No Currently Using BIPAP: No Cardiac: Yes (STENTS 20 PACEMAKER, CHF) Coronary Artery Disease, High Cholesterol, Hypertension Neurological: Yes (aphasia/ataxia, Hemiplegia, 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 Diabetes Physical Exam Vital Signs Vital Signs - First Documented 08/07/18 10:35 Temp 97.7 Pulse 65 Resp 18 B/P (MAP) 123/63 (83) Pulse Ox 98 Capillary Refill : Less Than 3 Seconds Height, Weight, BMI Height: 0'60.00" Weight: 155lbs. 0oz. 70.654952by; 28.7 BMI Method:Actual General Appearance: WD/WN, Mild Distress (generalized discomfort postoperatively) HEENT: PERRL/EOMI, Normal ENT Inspection Neck: Normal Inspection Respiratory: Lungs Clear, Normal Breath Sounds, No Accessory Muscle Use, No Respiratory Distress Cardiovascular: Regular Rate, Rhythm, No Edema, No Murmur Gastrointestinal: Normal Bowel Sounds, Soft, Tenderness (appropriately tender for postoperative abdomen), Other (incisions clean and dry. Clearish serous fluid in the SHYAM drain with scant blood) Extremity: Normal Capillary Refill, Normal Inspection, No Pedal Edema 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, Normal Mood/Affect, Motor Weakness (right- sided), Other (expressive language deficit) Skin: Normal Color, Warm/Dry Progress/Results/Core Measures Suspected Sepsis Recent Fever Within 48 Hours: No Infection Criteria Present: Suspected New Infection New/Unexplained Altered Menta: No Sepsis Screen: No Definite Risk SIRS Temperature:97.7 Pulse: 65 Respiratory Rate: 18 Laboratory Tests 08/07/18 10:45: White Blood Count 12.2H Blood Pressure 123 /63 Mean: 83 Laboratory Tests 08/07/18 10:45: Creatinine 1.95H, Platelet Count 286 Results/Orders Lab Results Laboratory Tests Test 08/07/18 10:45 Range/Units White Blood Count 12.2 H 4.3-11.0 10^3/uL Red Blood Count 2.60 L 4.35-5.85 10^6/uL Hemoglobin 7.5 L 11.5-16.0 G/DL Hematocrit 24 L 35-52 % Mean Corpuscular Volume 93 80-99 FL Mean Corpuscular Hemoglobin 29 25-34 PG Mean Corpuscular Hemoglobin Concent 31 L 32-36 G/DL Red Cell Distribution Width 14.2 10.0-14.5 % Platelet Count 286 130-400 10^3/uL Mean Platelet Volume 10.6 H 7.4-10.4 FL Neutrophils (%) (Auto) 85 H 42-75 % Lymphocytes (%) (Auto) 7 L 12-44 % Monocytes (%) (Auto) 7 0-12 % Eosinophils (%) (Auto) 1 0-10 % Basophils (%) (Auto) 0 0-10 % Neutrophils # (Auto) 10.4 H 1.8-7.8 X 10^3 Lymphocytes # (Auto) 0.9 L 1.0-4.0 X 10^3 Monocytes # (Auto) 0.9 0.0-1.0 X 10^3 Eosinophils # (Auto) 0.1 0.0-0.3 10^3/uL Basophils # (Auto) 0.1 0.0-0.1 10^3/uL Sodium Level 136 135-145 MMOL/L Potassium Level 4.7 3.6-5.0 MMOL/L Chloride Level 106 98-107 MMOL/L Carbon Dioxide Level 24 21-32 MMOL/L Anion Gap 6 5-14 MMOL/L Blood Urea Nitrogen 51 H 7-18 MG/DL Creatinine 1.95 H 0.60-1.30 MG/DL Estimat Glomerular Filtration Rate 25 BUN/Creatinine Ratio 26 Glucose Level 173 H 70-105 MG/DL Calcium Level 8.5 8.5-10.1 MG/DL Lipase 114 H 8-78 U/L My Orders Orders - CLAIR MARTINS MD Basic Metabolic Panel (08/07/18 10:27) Cbc With Automated Diff (08/07/18 10:27) Red Cells Leukocytes Reduced (08/07/18 10:27) Type And Screen (08/07/18 10:27) Lipase (08/07/18 11:00) Vital Signs/I&O 08/07/18 08/07/18 10:35 12:41 Temp 97.7 97.7 Pulse 65 65 Resp 18 18 B/P (MAP) 123/63 (83) 137/69 (91) Pulse Ox 98 98 Capillary Refill : Less Than 3 Seconds Blood Pressure Mean: 83 Progress Note : Progress Note Patient's vital signs were stable. She was transfused 2 units of RBC. Workup was otherwise stable. Orders were given for repeat labs on Friday at Dr. Lombardi's request. Departure Impression Primary Impression: Postoperative anemia Additional Impressions: Pancreatitis Qualified Codes: K85.90 - Acute pancreatitis without necrosis or infection, unspecified Chronic kidney disease Qualified Codes: N18.9 - Chronic kidney disease, unspecified Anemia of chronic disease Disposition: HOME, SELF-CARE Condition: Improved Departure-Patient Inst. Decision time for Depature: 12:23 Referrals: ANNIE SALAS MD (PCP/Family) Primary Care Physician Patient Instructions: Pancreatitis Add. Discharge Instructions: Continue medications and therapies as previously prescribed. Have labs drawn on Friday and call results to Dr. Lombardi. See prescription. Contact physician on-call with any problems or concerns. Follow-up with primary care provider next week as well. Return to the ER as needed for emergent issues. All discharge instructions reviewed with patient and/or family. Voiced understanding. Copy Copies To 1: СВЕТЛАНА LOMBARDI DO Copies To 2: ANNIE SALAS MD, JOSHUA T MD August 07, 2018 12:25
[2018-08-07 12:41] VITALS: BP 137/69
== END 2018-08-07 12:45 | disposition home or self-care (01) ==
LOC: EDUNIT# 10:19 → ER 10:20
DX: D62 Acute posthemorrhagic anemia (principal); K85.90 Acute pancreatitis without necrosis or infection, unspecified; E11.22 Type 2 diabetes mellitus with diabetic chronic kidney disease; I13.0 Hypertensive heart and chronic kidney disease with heart failure and stage 1 through stage 4 chronic kidney disease, or unspecified chronic kidney disease; I50.9 Heart failure, unspecified; N18.9 Chronic kidney disease, unspecified; D63.8 Anemia in other chronic diseases classified elsewhere; I25.10 Atherosclerotic heart disease of native coronary artery without angina pectoris; K21.9 Gastro-esophageal reflux disease without esophagitis; E03.9 Hypothyroidism, unspecified; F32.9 Major depressive disorder, single episode, unspecified; Z95.5 Presence of coronary angioplasty implant and graft; Z86.73 Personal history of transient ischemic attack (TIA), and cerebral infarction without residual deficits; Z87.19 Personal history of other diseases of the digestive system; Z79.82 Long term (current) use of aspirin; Z79.02 Long term (current) use of antithrombotics/antiplatelets; Z79.84 Long term (current) use of oral hypoglycemic drugs; Z90.710 Acquired absence of both cervix and uterus; Z95.1 Presence of aortocoronary bypass graft; Z95.0 Presence of cardiac pacemaker
CPT/HCPCS: 36415; 80048; 83690; 85025; 86850; 86900; 86901; 86920; 99281

== ENCOUNTER 2018-08-08 07:30 | Emergency (ER) | payer MEDICARE, MEDICAID ==
[~2018-08-08] VITALS: Ht 152.4 cm; Wt 70.3 kg
[2018-08-08 07:55] LABS: BASOPHILS % (AUTO) 0 % (0-10); EOSINOPHILS # (AUTO) 0.1 10^3/uL (0.0-0.3); EOSINOPHILS % (AUTO) 1 % (0-10); HEMATOCRIT 23 % (35-52); HEMOGLOBIN 7.1 G/DL (11.5-16.0); LYMPHOCYTES # (AUTO) 1.1 X 10^3 (1.0-4.0); LYMPHOCYTES % (AUTO) 9 % (12-44); MEAN CORPUSCULAR HEMOGLOBIN 29 PG (25-34); MEAN CORPUSCULAR HGB CONC 31 G/DL (32-36); MEAN CORPUSCULAR VOLUME 93 FL (80-99); MEAN PLATELET VOLUME 10.5 FL (7.4-10.4); MONOCYTES # (AUTO) 0.9 X 10^3 (0.0-1.0); MONOCYTES % (AUTO) 8 % (0-12); NEUTROPHILS # (AUTO) 9.6 X 10^3 (1.8-7.8); NEUTROPHILS % (AUTO) 82 % (42-75); PLATELET COUNT 271 10^3/uL (130-400); RED CELL DISTRIBUTION WIDTH 14.1 % (10.0-14.5); WHITE BLOOD COUNT 11.8 10^3/uL (4.3-11.0)
--- NOTE | 2018-08-08 07:55 | ED Fall/Injury ---
General Stated Complaint: FALL Source: patient Exam Limitations: no limitations History of Present Illness Date Seen by Provider: Aug 08, 2018 Time Seen by Provider: 07:37 Initial Comments Here with report of unwitnessed fall at the group home. She was apparently checked on and was doing okay and then 5 minutes later they found her on the floor with her nose bleeding face down. Unknown loss of consciousness. Patient doesn't complain of much pain. Did have recent gallbladder surgery and has drain in place on the right that has serous fluid. Bruising noted to the left side of face and nose and blood from the left nares. Also has bruising and swelling on the left hand. Patient does not complaining of anything significant but seems confused. She has known anemia after surgery and was transfused 2 units of blood yesterday. She is on Plavix apparently as well as aspirin. Occurred: this morning (approximately 30-45 minutes prior to arrival) Severity: moderate Injuries/Pain Location: head, face, upper extremity Context: unknown Loss of Consciousness: unsure Modifying Factors: Worse With Movement; Improves With Rest Associated Symptoms (Fall): Confusion, Headache; No Nausea/Vomiting, No Neck Pain, No Shortness of Air Allergies and Home Medications Allergies Coded Allergies: NKANo Known Allergies (Unverified Allergy, Mild, 07/31/18) Home Medications Aspirin 81 Mg Tablet.dr, 81 MG PO DAILY, (Reported) Atorvastatin Calcium 40 Mg Tablet, 40 MG PO HS, (Reported) Bisacodyl 5 Mg Tablet.dr, 5 MG PO DAILY PRN for CONSTIPATION-4TH LINE, (Reported) Cholecalciferol (Vitamin D3) 5,000 Unit Capsule, 5,000 UNIT PO DAILY, (Reported) Citalopram Hydrobromide 20 Mg Tablet, 20 MG PO DAILY, (Reported) Clopidogrel Bisulfate 75 Mg Tablet, 75 MG PO DAILY, (Reported) Diltiazem HCl 180 Mg Cap.er.24h, 180 MG PO DAILY Prescribed by: VANNESA HAJI on 08/04/18 1552 Ezetimibe 10 Mg Tablet, 10 MG PO HS, (Reported) Famotidine 20 Mg Tablet, 20 MG PO DAILY, (Reported) Levothyroxine Sodium 25 Mcg Tablet, 25 MCG PO DAILY, (Reported) Metformin HCl 500 Mg Tablet, 500 MG PO DAILY, (Reported) Metoprolol Tartrate 25 Mg Tablet, 25 MG PO BID Prescribed by: VANNESA HAJI on 08/04/18 0477 Tramadol HCl 50 Mg Tablet, 50 MG PO Q6H PRN for PAIN-MODERATE, (Reported) Patient Home Medication List Home Medication List Reviewed: Yes Review of Systems Review of Systems Constitutional: see HPI Ears, Nose, Mouth, Throat: see HPI, nose pain, epistaxis; denies mouth swelling Respiratory: no symptoms reported Cardiovascular: no symptoms reported Gastrointestinal: No abdominal pain, No nausea, No vomiting Unable to complete review of systems due to confusion Past Jvzesyx-Tdlmdl-Ijwotr Hx Past Med/Social Hx: Reviewed Nursing Past Med/Soc Hx Patient Social History Alcohol Use: Denies Use Recreational Drug Use: No Smoking Status: Unknown if Ever Smoked 2nd Hand Smoke Exposure: No Recent Foreign Travel: No Contact w/Someone Who Travel: No Recent Hopitalizations: Yes Immunizations Up To Date Date of Pneumonia Vaccine: Dec 16, 2016 Date of Influenza Vaccine: Mar 11, 2018 Seasonal Allergies Seasonal Allergies: No Past Medical History Surgeries: Yes (Knee surgery bilt) Cardiac, CABG, Eye Surgery, Gallbladder, Hysterectomy, Orthopedic, Pacemaker Respiratory: No Currently Using CPAP: No Currently Using BIPAP: No Cardiac: Yes (STENTS 20 PACEMAKER, CHF) Coronary Artery Disease, High Cholesterol, Hypertension Neurological: Yes (aphasia/ataxia, Hemiplegia, 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 Diabetes Physical Exam Vital Signs Vital Signs - First Documented 08/08/18 07:40 Pulse 88 Resp 18 B/P (MAP) 92/66 (75) Pulse Ox 94 O2 Delivery Room Air Capillary Refill : Height, Weight, BMI Height: 0'60.00" Weight: 155lbs. 0oz. [id number]; 28.7 BMI Method:Actual General Appearance: WD/WN, mild distress HEENT: PERRL/EOMI, TMs normal, other (epistaxis noted with clot to the left nares) Neck: full range of motion, supple Cardiovascular: regular rate, rhythm, no murmur Respiratory: lungs clear, normal breath sounds Gastrointestinal: non tender, soft Back: normal inspection, no CVA tenderness, no vertebral tenderness Extremities: pelvis stable, swelling, other (swelling or ecchymosis noted to the top of the left hand near the third through fifth MCP area.) Neurologic/Psychiatric: alert, other (appears confused and answers simple questions. Follows simple commands including open eyes and taking deep breaths.) Skin: warm/dry, ecchymosis (as described above) Lucia Coma Score Best Eye Response: (3) Open to Voice Best Verbal Response: (4) Confused Conversation Best Motor Response: (6) Obeys Commands Lucia Total: 13 Progress/Results/Core Measures Results/Orders Lab Results Laboratory Tests Test 08/08/18 07:45 Range/Units White Blood Count 11.8 H 4.3-11.0 10^3/uL Red Blood Count 2.44 L 4.35-5.85 10^6/uL Hemoglobin 7.1 L 11.5-16.0 G/DL Hematocrit 23 L 35-52 % Mean Corpuscular Volume 93 80-99 FL Mean Corpuscular Hemoglobin 29 25-34 PG Mean Corpuscular Hemoglobin Concent 31 L 32-36 G/DL Red Cell Distribution Width 14.1 10.0-14.5 % Platelet Count 271 130-400 10^3/uL Mean Platelet Volume 10.5 H 7.4-10.4 FL Neutrophils (%) (Auto) 82 H 42-75 % Lymphocytes (%) (Auto) 9 L 12-44 % Monocytes (%) (Auto) 8 0-12 % Eosinophils (%) (Auto) 1 0-10 % Basophils (%) (Auto) 0 0-10 % Neutrophils # (Auto) 9.6 H 1.8-7.8 X 10^3 Lymphocytes # (Auto) 1.1 1.0-4.0 X 10^3 Monocytes # (Auto) 0.9 0.0-1.0 X 10^3 Eosinophils # (Auto) 0.1 0.0-0.3 10^3/uL Basophils # (Auto) 0.0 0.0-0.1 10^3/uL Sodium Level 137 135-145 MMOL/L Potassium Level 4.9 3.6-5.0 MMOL/L Chloride Level 107 98-107 MMOL/L Carbon Dioxide Level 22 21-32 MMOL/L Anion Gap 8 5-14 MMOL/L Blood Urea Nitrogen 49 H 7-18 MG/DL Creatinine 2.16 H 0.60-1.30 MG/DL Estimat Glomerular Filtration Rate 22 BUN/Creatinine Ratio 23 Glucose Level 196 H 70-105 MG/DL Calcium Level 8.3 L 8.5-10.1 MG/DL Corrected Calcium 9.6 8.5-10.1 MG/DL Total Bilirubin 0.4 0.1-1.0 MG/DL Aspartate Amino Transf (AST/SGOT) 54 H 5-34 U/L Alanine Aminotransferase (ALT/SGPT) 47 0-55 U/L Alkaline Phosphatase 105 40-136 U/L Total Protein 4.6 L 6.4-8.2 GM/DL Albumin 2.4 L 3.2-4.5 GM/DL My Orders Orders - DAWNA DIETZ MD Ct Head/Face/Cervical Wo (08/08/18 07:40) Ed Iv/Invasive Line Start (08/08/18 07:40) Hand, Left, 3 Views (08/08/18 07:40) Cbc With Automated Diff (08/08/18 07:40) Comprehensive Metabolic Panel (08/08/18 07:40) Vital Signs/I&O 08/08/18 08/08/18 07:40 08:13 Pulse 88 Resp 18 B/P (MAP) 92/66 (75) 128/70 (89) Pulse Ox 94 O2 Delivery Room Air Progress Progress Note : Progress Note Seen and evaluated. IV, labs, CT head, face and neck ordered. X-ray left hand ordered. Patient did have 2 units transfused yesterday for low hemoglobin. We will recheck that today with labs. Monitor patient. Concerns about neck fracture and c-collar placed. 0945: I did discuss the case with the radiologist and he reports the patient has the fractures as indicated in report below. Patient will require transfer. 1005: [facility] contacted and is on diversion. We will try [facility]. 1015: I did discuss the case with Dr. Oscar at [facility] in [facility] in the emergency department. Findings reviewed and he accepts patient for transfer from our ER to ER transfer. [facility] will transport. All films clouded to [facility] in [place]. Diagnostic Imaging Diagonstic Imaging: Xray Plain Films/CT/US/NM/MRI: chest Comments [facility] [place], [place] NAME: NADINE GARCIA [facility] REC#: [id number] PT STATUS: REG ER : 1940 PHYSICIAN: DAWNA DIETZ MD ADMIT DATE: 08/08/18/ER Draft Date of Exam:08/08/18 HAND, LEFT, 3 VIEWS EXAMINATION: Left hand at 8:20 AM INDICATION: Fell Three views were obtained. There are no prior studies available for comparison. There is an impacted slightly displaced fracture of the neck of the fifth metacarpal. There is no acute bony abnormality noted otherwise. The osseous structures are demineralized. There is also severe degenerative disease of the triscaphe joint and at least moderate degenerative disease of the DIP joints of the digits. There is also narrowing of the radiocarpal joint and chondrocalcinosis of the joint and fibrocartilage. The soft tissues are unremarkable. IMPRESSION: 1. There is an impacted slightly displaced fracture of the neck of the fifth metacarpal. There is no acute bony abnormality noted otherwise. 2. The osseous structures are demineralized and there are degenerative changes present as described above. Dictated on workstation # [id number] Dict: 08/08/18 0829 Trans: 08/08/18 0842 JUSTIN [id number] Interpreted by: MATTHEW EL MD Electronically signed by: Diagonstic Imaging: CT Plain Films/CT/US/NM/MRI: facial bones, c-spine, head Comments [facility] [place] [place] NAME: NADINE GARCIA [facility] REC#: [id number] PT STATUS: REG ER : 1940 PHYSICIAN: DAWNA DIETZ MD ADMIT DATE: 08/08/18/ER Draft Date of Exam:08/08/18 CT HEAD/FACE/CERVICAL WO PROCEDURE: CT head, face, and cervical spine without contrast. TECHNIQUE: Multiple contiguous axial images were obtained through the head, neck, and facial bones without the use of intravenous contrast. Sagittal and coronal reformations through the cervical spine and facial bones were also performed. Auto Exposure Controls were utilized during the CT exam to meet ALARA standards for radiation dose reduction. INDICATION: Fell; head, neck and face pain. There are no prior CT examinations available for comparison. CT of the head: FINDINGS: There is fluid and hemorrhage within the right maxillary antrum and there do appear to be nondisplaced fractures of the lateral and medial selby of the right maxillary antrum. There is also a nondisplaced fracture of the tip of the nasal bone. There is fluid and hemorrhage in the ethmoid sinuses and nasal septum also appears to be fractured. CT of the facial bones is pending for further evaluation of these injuries. The orbits are unremarkable for an acute abnormality. There is no intracranial mass, shift of the midline or hemorrhage. The ventricles are not abnormally dilated. There is cortical atrophy present. The degree of atrophy is consistent with the patient's age. The bone windows show no sign of a skull fracture. IMPRESSION: 1. There is no evidence for an acute intracranial abnormality. 2. There are fractures of the right maxillary antrum, the nasal bone and the nasal septum. CT of the facial bones is pending for further study. CT of the facial bones: FINDINGS: As noted on the CT head exam performed in conjunction with this study, there is opacification of the right maxillary antrum by fluid/hemorrhage related to nondisplaced fractures involving the medial and lateral selby of the antrum. The reconstructed sagittal and coronal images are less than optimal but there does appear to be interruption of the floor of the orbit. I suspect that there is a nondisplaced fracture of the floor of the orbit. There is no sign of an injury to the extraocular muscles. Also, as noted on the CT exam, the tip of the nasal bone is fractured as well as the nasal septum. There is fluid and hemorrhage in the ethmoid air cells. There may be a nondisplaced fracture of the lateral wall of the left maxillary antrum and a small amount of fluid is seen layering within the antrum. There is also 1 cm retention cyst in the left maxillary antrum. There is some fluid/hemorrhage layering within the sphenoid sinus as well. The frontal sinuses are generally clear. The zygomatic arches, orbital rims and mandible are intact. However, the images through the skull base do suggest that there is a fracture of the dens. CT of the cervical spine is pending for additional study. The left globe and orbital contents are unremarkable. IMPRESSION: 1. There are nondisplaced fractures involving the right maxillary sinus and the tip of the nasal bone and the lateral wall of the left maxillary sinus. There is also a slightly displaced fracture of the nasal septum. There is also likely a nondisplaced fracture involving the floor of the right orbit. There is fluid/hemorrhage opacifying the right maxillary and ethmoid sinuses. 2. No other acute bony abnormality involving the facial bones is seen. However, there does appear to be a fracture of the dens. CT of the cervical spine is pending for further study. CT of the cervical spine: FINDINGS: As suggested on the CT facial bones exam, there is a slightly displaced fracture involving the ventral cortex of the base of the dens. There is also a slightly comminuted fracture of the arch of C1 just to the right of midline. There is retropharyngeal edema in this area and there is some gas dispersed amidst the retropharyngeal edema. There is no other fracture or acute bony abnormality appreciated. There is severe degenerative disc and bony disease throughout the cervical spine. There does appear to be spinal stenosis and neuroforaminal narrowing on the right at C3-C4. There is also spinal stenosis and neuroforaminal narrowing bilaterally at C4-C5 and C5-C6. There is no sign of a paraspinal mass. The thyroid gland, where visualized, is unremarkable. The lung apices are clear. There is no acute bony abnormality noted otherwise. There is severe degenerative disc and bony disease throughout the cervical spine. IMPRESSION: 1. There is a broad slightly displaced fracture of the base of the dens and there is a slightly comminuted fracture of the arch of C1 on the right. There is no acute bony abnormality noted otherwise. 2. There is severe degenerative disc and bony disease throughout the cervical spine and there is spinal stenosis at C3-C4, C4-C5 and C5-C6. 3. These results were discussed with Dr. Dietz at the time of this dictation. CRITICAL FINDING Dictated on workstation # [id number] Dict: 08/08/18 0855 Trans: 08/08/18 0948 KB [id number] Interpreted by: MATTHEW EL MD Electronically signed by: Departure Impression Primary Impression: Fx C1 vertebra-closed Qualified Codes: S12.031A - Nondisplaced posterior arch fracture of first cervical vertebra, initial encounter for closed fracture Additional Impressions: Closed dens fracture Qualified Codes: S12.100A - Unspecified displaced fracture of second cervical vertebra, initial encounter for closed fracture Fracture of fifth metacarpal bone of left hand Qualified Codes: S62.347A - Nondisplaced fracture of base of fifth metacarpal bone, left hand, initial encounter for closed fracture Multiple facial fractures Qualified Codes: S02.92XB - Unspecified fracture of facial bones, initial encounter for open fracture Disposition: 02 XFER [facility] HOSP Condition: Stable Transfer Transfer Time: 10:15 Transfer Facility: [facility], [place], Dr. Oscar accepting Method of Transfer: EMS Departure-Patient Inst. Referrals: ANNIE SALAS MD (PCP/Family) Primary Care Physician DAWNA DIETZ MD Aug 08, 2018 07:55
--- NOTE | 2018-08-08 08:00 | NUR ---
cleaned patients face and hands, changed into a gown.
[2018-08-08 08:13] VITALS: BP 128/70
[2018-08-08 08:19] LABS: ALBUMIN 2.4 GM/DL (3.2-4.5); BILIRUBIN,TOTAL 0.4 MG/DL (0.1-1.0); CALCIUM 8.3 MG/DL (8.5-10.1); CREATININE SERUM 2.16 MG/DL (0.60-1.30); POTASSIUM 4.9 MMOL/L (3.6-5.0); TOTAL PROTEIN 4.6 GM/DL (6.4-8.2)
--- NOTE | 2018-08-08 08:38 | NUR ---
CALLED TO CT FOR C-COLLAR PLACEMENT.
--- NOTE | 2018-08-08 08:43 | Diagnostic Imaging Report ---
EXAMINATION: Left hand at 8:20 AM INDICATION: Fell Three views were obtained. There are no prior studies available for comparison. There is an impacted slightly displaced fracture of the neck of the fifth metacarpal. There is no acute bony abnormality noted otherwise. The osseous structures are demineralized. There is also severe degenerative disease of the triscaphe joint and at least moderate degenerative disease of the DIP joints of the digits. There is also narrowing of the radiocarpal joint and chondrocalcinosis of the joint and fibrocartilage. The soft tissues are unremarkable. IMPRESSION: 1. There is an impacted slightly displaced fracture of the neck of the fifth metacarpal. There is no acute bony abnormality noted otherwise. 2. The osseous structures are demineralized and there are degenerative changes present as described above. Dictated by: Dictated on workstation # [id number]
--- NOTE | 2018-08-08 09:12 | NUR ---
ice pack placed on patient eyes and nose 0915 ice pack placed on left hand
--- NOTE | 2018-08-08 09:45 | NUR ---
cleaned patient face again, looks as though the oosing is stopped
--- NOTE | 2018-08-08 09:48 | Diagnostic Imaging Report ---
PROCEDURE: CT head, face, and cervical spine without contrast. TECHNIQUE: Multiple contiguous axial images were obtained through the head, neck, and facial bones without the use of intravenous contrast. Sagittal and coronal reformations through the cervical spine and facial bones were also performed. Auto Exposure Controls were utilized during the CT exam to meet ALARA standards for radiation dose reduction. INDICATION: Fell; head, neck and face pain. There are no prior CT examinations available for comparison. CT of the head: FINDINGS: There is fluid and hemorrhage within the right maxillary antrum and there do appear to be nondisplaced fractures of the lateral and medial selby of the right maxillary antrum. There is also a nondisplaced fracture of the tip of the nasal bone. There is fluid and hemorrhage in the ethmoid sinuses and nasal septum also appears to be fractured. CT of the facial bones is pending for further evaluation of these injuries. The orbits are unremarkable for an acute abnormality. There is no intracranial mass, shift of the midline or hemorrhage. The ventricles are not abnormally dilated. There is cortical atrophy present. The degree of atrophy is consistent with the patient's age. The bone windows show no sign of a skull fracture. IMPRESSION: 1. There is no evidence for an acute intracranial abnormality. 2. There are fractures of the right maxillary antrum, the nasal bone and the nasal septum. CT of the facial bones is pending for further study. 3. Reportedly the patient is anticoagulated. If clinical concern regarding an underlying abnormality persists, then a short-term (24-hour) followup CT head exam would recommended for further study. CT of the facial bones: FINDINGS: As noted on the CT head exam performed in conjunction with this study, there is opacification of the right maxillary antrum by fluid/hemorrhage related to nondisplaced fractures involving the medial and lateral selby of the antrum. The reconstructed sagittal and coronal images are less than optimal but there does appear to be interruption of the floor of the orbit. I suspect that there is a nondisplaced fracture of the floor of the orbit. There is no sign of an injury to the extraocular muscles. Also, as noted on the CT exam, the tip of the nasal bone is fractured as well as the nasal septum. There is fluid and hemorrhage in the ethmoid air cells. There may be a nondisplaced fracture of the lateral wall of the left maxillary antrum and a small amount of fluid is seen layering within the antrum. There is also 1 cm retention cyst in the left maxillary antrum. There is some fluid/hemorrhage layering within the sphenoid sinus as well. The frontal sinuses are generally clear. The zygomatic arches, orbital rims and mandible are intact. However, the images through the skull base do suggest that there is a fracture of the dens. CT of the cervical spine is pending for additional study. The left globe and orbital contents are unremarkable. IMPRESSION: 1. There are nondisplaced fractures involving the right maxillary sinus and the tip of the nasal bone and the lateral wall of the left maxillary sinus. There is also a slightly displaced fracture of the nasal septum. A nondisplaced fracture involving the floor of the right orbit is also suspected. There is fluid/hemorrhage opacifying the right maxillary and ethmoid sinuses. 2. No other acute bony abnormality involving the facial bones is seen. However, there does appear to be a fracture of the dens. CT of the cervical spine is pending for further study. CT of the cervical spine: FINDINGS: As suggested on the CT facial bones exam, there is a slightly displaced fracture involving the ventral cortex of the base of the dens. There is also a slightly comminuted fracture of the arch of C1 just to the right of midline. There is retropharyngeal edema in this area and there is some gas dispersed amidst the retropharyngeal edema. There is no other fracture or acute bony abnormality appreciated. There is severe degenerative disc and bony disease throughout the cervical spine. There does appear to be spinal stenosis and neuroforaminal narrowing on the right at C3-C4. There is also spinal stenosis and neuroforaminal narrowing bilaterally at C4-C5 and C5-C6. There is no sign of a paraspinal mass. The thyroid gland, where visualized, is unremarkable. The lung apices are clear. There is no acute bony abnormality noted otherwise. There is severe degenerative disc and bony disease throughout the cervical spine. IMPRESSION: 1. There is a broad slightly displaced fracture of the base of the dens and there is a slightly comminuted fracture of the arch of C1 on the right. There is no acute bony abnormality noted otherwise. 2. There is severe degenerative disc and bony disease throughout the cervical spine and there is spinal stenosis at C3-C4, C4-C5 and C5-C6. 3. These results were discussed with Dr. Spence at the time of this dictation. CRITICAL FINDING Dictated by: Dictated on workstation # [id number]
--- NOTE | 2018-08-08 10:15 | NUR ---
oxygen applied to patient to keep O2 sats greater than 92%
--- NOTE | 2018-08-08 10:21 | NUR ---
EMS CALLED FOR TRANSFER
--- NOTE | 2018-08-08 10:24 | NUR ---
report given to cecilio ORTIZ at [facility]
[2018-08-08 11:10] VITALS: BP 118/49
== END 2018-08-08 11:10 | disposition short-term general hospital (02) ==
LOC: EDUNIT# 07:30 → ER 07:31
DX: S12.000A Unspecified displaced fracture of first cervical vertebra, initial encounter for closed fracture (principal); S02.40CA Maxillary fracture, right side, initial encounter for closed fracture; S02.2XXA Fracture of nasal bones, initial encounter for closed fracture; S02.40DA Maxillary fracture, left side, initial encounter for closed fracture; S62.337A Displaced fracture of neck of fifth metacarpal bone, left hand, initial encounter for closed fracture; R40.2132 Coma scale, eyes open, to sound, at arrival to emergency department; R40.2242 Coma scale, best verbal response, confused conversation, at arrival to emergency department; R40.2362 Coma scale, best motor response, obeys commands, at arrival to emergency department; I13.0 Hypertensive heart and chronic kidney disease with heart failure and stage 1 through stage 4 chronic kidney disease, or unspecified chronic kidney disease; E11.22 Type 2 diabetes mellitus with diabetic chronic kidney disease; I50.9 Heart failure, unspecified; N18.9 Chronic kidney disease, unspecified; K21.9 Gastro-esophageal reflux disease without esophagitis; E03.9 Hypothyroidism, unspecified; F32.9 Major depressive disorder, single episode, unspecified; E78.00 Pure hypercholesterolemia, unspecified; E11.40 Type 2 diabetes mellitus with diabetic neuropathy, unspecified; I25.10 Atherosclerotic heart disease of native coronary artery without angina pectoris; Z86.73 Personal history of transient ischemic attack (TIA), and cerebral infarction without residual deficits; Z87.19 Personal history of other diseases of the digestive system; Z95.1 Presence of aortocoronary bypass graft; Z98.890 Other specified postprocedural states; Z90.710 Acquired absence of both cervix and uterus; Z95.0 Presence of cardiac pacemaker; Z95.5 Presence of coronary angioplasty implant and graft; Z79.82 Long term (current) use of aspirin; Z79.84 Long term (current) use of oral hypoglycemic drugs; Z79.02 Long term (current) use of antithrombotics/antiplatelets; W19.XXXA Unspecified fall, initial encounter; Y92.129 Unspecified place in nursing home as the place of occurrence of the external cause
CPT/HCPCS: 36415; 70450; 70486; 72125; 73130; 80053; 85025

== ENCOUNTER 2018-08-13 18:39 | Emergency (ER) | payer MEDICARE, MEDICAID ==
[~2018-08-13] VITALS: Ht 152.4 cm; Wt 70.3 kg
--- NOTE | 2018-08-13 19:00 | ED Fall/Injury ---
General Chief Complaint: General Problems/Pain Stated Complaint: FALL Nursing Triage Note: DETENTION NURSE REPORTS PT FELL FROM WHEELCHAIR AND FELL FACE FORWARD ON TO CONCRETE MARLI. PT HAS LAC TO RIGHT EYEBROW. PT HAS INJURIES FROM PRIOR FALL 1 WEEK AGO. DVT TO LEFT UPPER ARM AND C COLLAR RFOR C1 C2. FRACTURE TO LEFT HAND. NO IMMOBILIZATION TO FRACTURE HAND. 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 PT FELL OUT OF HER WHEELCHAIR IN FRONT OF THE NURSE'S STATION, AND LANDED FACE- FIRST ONTO THE CONCRETE FLOOR. PT HAS LACERATION AND ECCHYMOSIS AND SWELLING TO RIGHT BROW AND PERIORBITAL AREA NO REPORTED LOSS OF CONSCIOUSNESS ON 08/08/18, PT HAD AN UNWITNESSED FALL AT THE DETENTION, AND SUSTAINED C1 AND C2 FRACTURES, RIGHT MAXILLARY ANTRUM, TIP OF NASAL BONE AND NASAL SEPTUM PT IS CURRENTLY IN A C-COLLAR FROM THAT INJURY PT ALSO HAS A RECENT FRACTURE OF LEFT HAND DUE TO SAME FALL--NOT WEARING A SPLINT OR ANYTHING ON LEFT HAND PT WAS HOSPITALIZED 08/08-08/13/18 AND JUST GOT BACK TO DETENTION TODAY AT 1500 DETENTION STAFF REPORT THAT SHE HAS ONLY BEEN ORIENTED TO PERSON SINCE SHE GOT BACK FROM THE DETENTION TODAY PT IS ON ELIQUIS FOR DVT TO RIGHT ARM PT HAD INTRACRANIAL BLEED 03/10/18--WAS ON PLAVIX AND ASPIRIN AT THAT TIME, AND ACCORDING TO DETENTION RECORDS, PT IS STILL ON THOSE, IN ADDITION TO ELIQUIS. 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 PT IS DNR PCP: DR. SALAS Allergies and Home Medications Allergies Coded Allergies: NKANo Known Allergies (Unverified Allergy, Mild, 07/31/18) Home Medications Aspirin 81 Mg Tablet.dr, 81 MG PO DAILY, (Reported) Atorvastatin Calcium 40 Mg Tablet, 40 MG PO HS, (Reported) Bisacodyl 5 Mg Tablet.dr, 5 MG PO DAILY PRN for CONSTIPATION-4TH LINE, (Reported) Cholecalciferol (Vitamin D3) 5,000 Unit Capsule, 5,000 UNIT PO DAILY, (Reported) Citalopram Hydrobromide 20 Mg Tablet, 20 MG PO DAILY, (Reported) Clopidogrel Bisulfate 75 Mg Tablet, 75 MG PO DAILY, (Reported) Diltiazem HCl 180 Mg Cap.er.24h, 180 MG PO DAILY Prescribed by: VANNESA HAJI on 08/04/18 1557 Ezetimibe 10 Mg Tablet, 10 MG PO HS, (Reported) Famotidine 20 Mg Tablet, 20 MG PO DAILY, (Reported) Levothyroxine Sodium 25 Mcg Tablet, 25 MCG PO DAILY, (Reported) Metformin HCl 500 Mg Tablet, 500 MG PO DAILY, (Reported) Metoprolol Tartrate 25 Mg Tablet, 25 MG PO BID Prescribed by: VANNESA HAJI on 08/04/181556 Tramadol HCl 50 Mg Tablet, 50 MG PO Q6H PRN for PAIN-MODERATE, (Reported) Patient Home Medication List Home Medication List Reviewed: Yes Review of Systems Review of Systems Constitutional: other (UNABLE TO OBTAIN FROM PT) Ears, Nose, Mouth, Throat: see HPI Past [id number] Hx Patient Social History Alcohol Use: Denies Use Recreational Drug Use: No Smoking Status: Never a Smoker 2nd Hand Smoke Exposure: No Recent Foreign Travel: No Contact w/Someone Who Travel: No Recent Hopitalizations: Yes Physical Abuse: No Sexual Abuse: No Mistreated: No Fear: No Immunizations Up To Date Date of Pneumonia Vaccine: Dec 16, 2016 Date of Influenza Vaccine: Mar 11, 2018 Seasonal Allergies Seasonal Allergies: No Past Medical History Surgeries: Yes (BILATERAL KNEE REPLACEMENTS) Cardiac, CABG, Eye Surgery, Gallbladder, Hysterectomy, Joint Replacement, O rthopedic, Pacemaker Respiratory: No Currently Using CPAP: No Currently Using BIPAP: No Cardiac: Yes (STENTS 20; CABG; PACEMAKER, CHF; DVT LEFT ARM 2018) Coronary Artery Disease, Deep Vein Thrombosis, High Cholesterol, Hypertension Neurological: Yes (aphasia/ataxia, Hemiplegia, 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; INTRACRANIAL BLEED 03/10/18) Neuropathy, Stroke Reproductive Disorders: No Sexually Transmitted Disease: No Genitourinary: Yes (CHRONIC KIDNEY DISEASE) Renal Failure Gastrointestinal: Yes Gastroesophageal Reflux, Chronic Constipation Musculoskeletal: Yes (GENERALIZED PAIN, POOR MOBILITY; FALLS; C1-C2 FRACTURE 08/08/18) Arthritis Endocrine: Yes Hypothyroidsim, Diabetes, Non-Insulin dep HEENT: No Cancer: No Psychosocial: Yes Depression Integumentary: No Blood Disorders: No Adverse Reaction/Blood Tranf: No Family Medical History Patient reports no known family medical history. Diabetes Physical Exam Vital Signs Capillary Refill : Less Than 3 Seconds Height, Weight, BMI Height: 0'60.00" Weight: 155lbs. 0oz. [id number]; 28.7 BMI Method:Actual General Appearance: obese, other (CERVICAL COLLAR IN PLACE; LETHARGIC) HEENT: PERRL/EOMI, other (OLD BRUISE TO LEFT PERIORBITAL AREA AND LEFT CHEEK. NEW RIGHT PERIORBITAL HEMATOMA AND LACERATION TO RIGHT BROW AREA. ) Neck: other (IN CERVICAL COLLAR) Cardiovascular: regular rate, rhythm, no JVD, no murmur Respiratory: normal breath sounds, no respiratory distress, no accessory muscle use Gastrointestinal: non tender, soft Extremities: normal capillary refill, other (SIGNIFICANT SWELLING AND BRUISING ( OLD ) TO LEFT HAND; MODERATE SWELLING TO ENTIRE LEFT ARM. PT HAS RIGHT HEMIPLEGIA FROM PRIOR CVA) Neurologic/Psychiatric: other (PT LETHARGIC/DROWSY; LONGSTANDING EXPRESSIVE APHASIA; NOT FOLLOWING COMMANDS) Skin: ecchymosis Lucia Coma Score Best Eye Response: (3) Open to Voice Best Verbal Response: (2) Incomprehsible Sounds Best Motor Response: (5) Localizes to Pain Progress/Results/Core Measures Results/Orders Lab Results Laboratory Tests Test 08/13/18 19:00 Range/Units White Blood Count 11.7 H 4.3-11.0 10^3/uL Red Blood Count 3.15 L 4.35-5.85 10^6/uL Hemoglobin 9.0 #L 11.5-16.0 G/DL Hematocrit 28 L 35-52 % Mean Corpuscular Volume 90 80-99 FL Mean Corpuscular Hemoglobin 29 25-34 PG Mean Corpuscular Hemoglobin Concent 32 32-36 G/DL Red Cell Distribution Width 16.5 H 10.0-14.5 % Platelet Count 252 130-400 10^3/uL Mean Platelet Volume 10.3 7.4-10.4 FL Neutrophils (%) (Auto) 83 H 42-75 % Lymphocytes (%) (Auto) 8 L 12-44 % Monocytes (%) (Auto) 7 0-12 % Eosinophils (%) (Auto) 1 0-10 % Basophils (%) (Auto) 1 0-10 % Neutrophils # (Auto) 9.7 H 1.8-7.8 X 10^3 Lymphocytes # (Auto) 1.0 1.0-4.0 X 10^3 Monocytes # (Auto) 0.9 0.0-1.0 X 10^3 Eosinophils # (Auto) 0.1 0.0-0.3 10^3/uL Basophils # (Auto) 0.1 0.0-0.1 10^3/uL Prothrombin Time 17.5 H 12.2-14.7 SEC INR Comment 1.4 0.8-1.4 Activated Partial Thromboplast Time 33 24-35 SEC Sodium Level 143 135-145 MMOL/L Potassium Level 4.4 3.6-5.0 MMOL/L Chloride Level 114 H 98-107 MMOL/L Carbon Dioxide Level 19 L 21-32 MMOL/L Anion Gap 10 5-14 MMOL/L Blood Urea Nitrogen 25 H 7-18 MG/DL Creatinine 1.76 H 0.60-1.30 MG/DL Estimat Glomerular Filtration Rate 28 BUN/Creatinine Ratio 14 Glucose Level 202 H 70-105 MG/DL Calcium Level 8.6 8.5-10.1 MG/DL Corrected Calcium 9.8 8.5-10.1 MG/DL Total Bilirubin 0.3 0.1-1.0 MG/DL Aspartate Amino Transf (AST/SGOT) 26 5-34 U/L Alanine Aminotransferase (ALT/SGPT) 25 0-55 U/L Alkaline Phosphatase 109 40-136 U/L Total Protein 4.9 L 6.4-8.2 GM/DL Albumin 2.5 L 3.2-4.5 GM/DL My Orders Orders - BEENA BRIDGES DO Ed Iv/Invasive Line Start (08/13/18 18:50) Monitor-Rhythm Ecg Trace Only (08/13/18 18:50) Ct Head/Face/Cervical Wo (08/13/18 18:50) Cbc With Automated Diff (08/13/18 18:50) Comprehensive Metabolic Panel (08/13/18 18:50) Protime With Inr (08/13/18 18:50) Partial Thromboplastin Time (08/13/18 18:50) Chest 1 View, Ap/Pa Only (08/13/18 18:50) Pelvis (08/13/18 18:50) Fentanyl Injection (Sublimaze Injection (08/13/18 20:15) Human Prothrombin Complx(Pcc) (Kcentra K (08/13/18 20:40) Mannitol 20% Iv Premix (Osmitrol 20% Pre (08/13/18 20:40) Human Prothrombin Complx(Pcc) (Kcentra K (08/13/18 21:15) Mannitol 20% Iv Premix (Osmitrol 20% Pre (08/13/18 21:30) Communication For Respiratory (08/13/18 21:16) Mannitol 20% Iv Premix (Osmitrol 20% Pre (08/13/18 21:45) Iv Push Hoist Cylinder Loader Ed (08/13/18 ) Medications Given in ED Vital Signs/I&O Blood Pressure Mean: 114 Diagnostic Imaging Comments CXR--NO ACUTE PROCESS CT HEAD--+ RIGHT SUBDURAL HEMATOMA 10 MM --MIXED DENSITY ACUTE AND SUBACUTE--NEW FROM 08/08/18, SUB FALX HERNIATION TO LEFT OF 5 MM; NON-DISPLACED FX OF RIGHT MAXILLARY SINUS, TIP OF NASAL BONE, AND LATERAL WALL OF LEFT MAXILLARY SINUS; ODONTOID AND FX OF ANTERIOR ARCH OF C1 PER RADIOLOGIST REPORTS AT 1957 Reviewed: Reviewed by Me Departure Communication (Admissions) Family Conversation NO ICU BEDS AVAILABLE HERE 2004--CALLED [facility], ON CRITICAL CARE DIVERT, BUT WILL DISCUSS WITH ER PHYSICIAN PT WAS JUST RELEASED FROM THERE TODAY' 2009--ATTEMPTING TO CONTACT PT'S SON--NOT A WORKING # 2013--SPOKE WITH [id number], SHE WILL CONTACT SON 2019--SPOKE WITH DR. EMERSON [facility]. CANNOT ACCEPT PT THEY ARE ON CRITICAL CARE DIVERT 2020--SPOKE WITH SON AND [id number]. THEY STATE THAT PT DOES NOT HAVE DPOA, AND DOES NOT KNOW CODE STATUS, INFORMED THEM OF PT'S CRITICAL CONDITION 2027--CALLED [facility] 2033--SPOKE WITH DR. SADLER, ER PHYSICIAN, ACCEPTS PT FOR TRANSFER, ADVISES TO GIVE K-CENTRA. 2036--SPOKE WITH SON AGAIN, HE NOW VERIFIES THAT PT IS DNR/DNI "BUT OK'S NEUROSURGERY" 2117--PT'S NEPHEW CALLED, UPDATE GIVEN AND INFORMED HIM OF PT'S CRITICAL CONDITION 2124--CALLED [facility] FOR TRANSPORT. Impression Primary Impression: S/P FALL FROM WHEELCHAIR Additional Impressions: Intracranial bleed ANTICOAGULATION THERAPY RECENT C1-C2 FRACTURE FACIAL FRACTURES RECENT LEFT HAND FRACTURE OLD CVA WITH RIGHT SIDE WEAKNESS RECENT DVT LEFT ARM Disposition: XFER SHT-TRM HOSP Condition: Critical Transfer Transfer Facility: [place], [place] Method of Transfer: Air Departure-Patient Inst. Referrals: ANNIE SALAS MD (PCP/Family) Primary Care Physician BEENA BRIDGES DO Aug 13, 2018 19:00
[2018-08-13 19:07] LABS: BASOPHILS # (AUTO) 0.1 10^3/uL (0.0-0.1); BASOPHILS % (AUTO) 1 % (0-10); EOSINOPHILS # (AUTO) 0.1 10^3/uL (0.0-0.3); EOSINOPHILS % (AUTO) 1 % (0-10); HEMATOCRIT 28 % (35-52); LYMPHOCYTES % (AUTO) 8 % (12-44); MEAN CORPUSCULAR HEMOGLOBIN 29 PG (25-34); MEAN CORPUSCULAR HGB CONC 32 G/DL (32-36); MEAN CORPUSCULAR VOLUME 90 FL (80-99); MEAN PLATELET VOLUME 10.3 FL (7.4-10.4); MONOCYTES # (AUTO) 0.9 X 10^3 (0.0-1.0); MONOCYTES % (AUTO) 7 % (0-12); NEUTROPHILS # (AUTO) 9.7 X 10^3 (1.8-7.8); NEUTROPHILS % (AUTO) 83 % (42-75); PLATELET COUNT 252 10^3/uL (130-400); RED CELL DISTRIBUTION WIDTH 16.5 % (10.0-14.5); WHITE BLOOD COUNT 11.7 10^3/uL (4.3-11.0)
[2018-08-13 19:19] LABS: INR 1.4 (0.8-1.4); PROTHROMBIN TIME PATIENT 17.5 SEC (12.2-14.7)
[2018-08-13 19:26] LABS: ALBUMIN 2.5 GM/DL (3.2-4.5); BILIRUBIN,TOTAL 0.3 MG/DL (0.1-1.0); CALCIUM 8.6 MG/DL (8.5-10.1); CREATININE SERUM 1.76 MG/DL (0.60-1.30); POTASSIUM 4.4 MMOL/L (3.6-5.0); TOTAL PROTEIN 4.9 GM/DL (6.4-8.2)
--- NOTE | 2018-08-13 19:42 | Diagnostic Imaging Report ---
INDICATION: Injury from a fall. EXAMINATION: Portable chest at 07:23 p.m. FINDINGS: There are postop changes from CABG surgery. There is a dual-chamber pacemaker. Heart size and pulmonary vascularity are normal. Lungs are clear. There are no effusions or pneumothoraces. IMPRESSION: Postsurgical changes in the chest. There are no acute abnormalities seen. Dictated by: Dictated on workstation # [id number]
--- NOTE | 2018-08-13 19:46 | Diagnostic Imaging Report ---
PROCEDURE: CT head, face, and cervical spine without contrast. TECHNIQUE: Multiple contiguous axial images were obtained through the head, neck, and facial bones without the use of intravenous contrast. Sagittal and coronal reformations through the cervical spine and facial bones were also performed. Auto Exposure Controls were utilized during the CT exam to meet ALARA standards for radiation dose reduction. INDICATION: Fall. Hematoma at right scalp supraorbital region. FINDINGS: CT head: There is subdural hemorrhage present. This is along the right temporoparietal region with maximal width of approximately 10 mm. This does show a mixed density suggesting both chronic and acute process. These findings are all new when compared with 08/08/2018 exam. There is sub-falx herniation to the left of approximately 5 mm. Mild effacement of the right lateral ventricle. Basal cisterns are clear. No evidence of subarachnoid or intraventricular hemorrhage. There is large scalp hematoma over the right frontal orbital region. No evidence of calvarial fracture. IMPRESSION: Development of the subdural hematoma since 08/08/2018 exam. This is causing moderate effacement of the right lateral ventricle with mild sub-falx herniation to the left of 5 mm. Maximal width of the subdural fluid collection is approximately 10 mm. Facial bones: Compared with 08/08/2018. FINDINGS: There is again noted nondisplaced fracture involving the right maxillary sinus as well as the tip of the nasal bone and lateral wall of the left maxillary sinus. Also mild deviation in nasal septum. There is considerable mucosal thickening present within the maxillary sinuses. No evidence of orbital blowout fracture. The lateral orbital selby are intact. Zygomatic arches are in good position. Temporomandibular joints are in good position. No evidence of mandibular fracture. IMPRESSION: Finding consistent with subtle nondisplaced fractures involving the right maxillary sinus as well as left maxillary sinus lateral wall. Mildly displaced fracture of the tip of the nasal bone. Mucosal thickening of the maxillary sinus mucosa and ethmoid sinuses. There has been significant decrease in soft tissue swelling of the nasal bone in the interim. Cervical spine: Sagittal and coronal reformatted images. FINDINGS; Good alignment. Body heights are well-maintained. There is fracture of the odontoid along the base with minimal posterior angulation. There is no displacement. There is fracture along the anterior arch on the right of C1. The posterior arch appears intact. The facets show good alignment throughout. Good alignment of the vertebral bodies throughout. Advanced degenerative disc disease C3 through C7 with loss of disc space with hypertrophic lipping of the endplates. There is calcification of carotid arteries. The surrounding vessels otherwise appear normal. IMPRESSION: 1. Fracture at the base of the odontoid with mild angulation. Also nondisplaced fracture along the anterior arch of C1. No evidence of spinal encroachment. 2. Advanced degenerative cervical disc disease at C3 through C7. No acute changes have occurred when compared with previous exam. Dictated by: Dictated on workstation # [id number]
--- NOTE | 2018-08-13 19:53 | Diagnostic Imaging Report ---
INDICATION: Pelvic injury from a fall AP view of the pelvis shows no fracture or dislocation. IMPRESSION: Negative pelvis Dictated by: Dictated on workstation # [id number]
[2018-08-13] MEDS ORDERED: fentaNYL INJECTION 100 MCG/2 ML AMP IVP ONE (20:15)
[2018-08-13] MEDS ORDERED: HUMAN PROTHROMBIN COMPLX(PCC) 500 UNIT (KCENTRA) IV ONE ×2 (20:40→21:15)
[2018-08-13] MEDS ORDERED: MANNITOL 20% IV PREMIX 500 ML IV ONE (20:40)
[2018-08-13] MEDS ORDERED: MANNITOL 20% (OSMITROL) PREMIX 500 ML BAG IV SCH ×2 (21:30→21:45)
--- NOTE | 2018-08-13 21:49 | NUR ---
REPORT TO ANGEL TAYLOR FOR CONTINUED CARE. REPORT TO ANGEL ISSA WITH [facility]. TRANSFERRING TO [place] AT THIS TIME. [place] REQUESTING FOR PT TO BE INTUBATED PRIOR TO ARRIVAL. PER FAMILY PT IS A DNR AND DO NOT INTUBATE. FAMILY STATES THAT SHE WILL HAVE BRAIN SURGERYR THOUGH. MULTIPLE CALLS TO FAMILY TO CLARIFY REQUESTS PRIOR TO TRANSPORT TO [facility].
[2018-08-13 21:53] VITALS: BP 178/83
== END 2018-08-13 21:56 ==
LOC: EDUNIT# 18:39 → ER 18:40
DX: S06.9X0A Unspecified intracranial injury without loss of consciousness, initial encounter (principal); S02.92XA Unspecified fracture of facial bones, initial encounter for closed fracture; S12.000D Unspecified displaced fracture of first cervical vertebra, subsequent encounter for fracture with routine healing; S12.100D Unspecified displaced fracture of second cervical vertebra, subsequent encounter for fracture with routine healing; S62.92XD Unspecified fracture of left hand, subsequent encounter for fracture with routine healing; I69.931 Monoplegia of upper limb following unspecified cerebrovascular disease affecting right dominant side; I25.10 Atherosclerotic heart disease of native coronary artery without angina pectoris; E78.00 Pure hypercholesterolemia, unspecified; E11.22 Type 2 diabetes mellitus with diabetic chronic kidney disease; I13.0 Hypertensive heart and chronic kidney disease with heart failure and stage 1 through stage 4 chronic kidney disease, or unspecified chronic kidney disease; N18.9 Chronic kidney disease, unspecified; I50.9 Heart failure, unspecified; E11.40 Type 2 diabetes mellitus with diabetic neuropathy, unspecified; E03.9 Hypothyroidism, unspecified; F32.9 Major depressive disorder, single episode, unspecified; K21.9 Gastro-esophageal reflux disease without esophagitis; Z79.82 Long term (current) use of aspirin; Z87.19 Personal history of other diseases of the digestive system; Z79.02 Long term (current) use of antithrombotics/antiplatelets; Z79.84 Long term (current) use of oral hypoglycemic drugs; Z95.1 Presence of aortocoronary bypass graft; Z86.73 Personal history of transient ischemic attack (TIA), and cerebral infarction without residual deficits; Z90.710 Acquired absence of both cervix and uterus; Z98.890 Other specified postprocedural states; Z95.0 Presence of cardiac pacemaker; Z79.01 Long term (current) use of anticoagulants; Z86.718 Personal history of other venous thrombosis and embolism; V00.811A Fall from moving wheelchair (powered), initial encounter; W19.XXXD Unspecified fall, subsequent encounter; Y92.129 Unspecified place in nursing home as the place of occurrence of the external cause
CPT/HCPCS: 36415; 70450; 70486; 71045; 72125; 72170; 80053; 85025; 85610; 85730; 93041; 94660; 96374; 96375